=== PATIENT | female | born 1945 | race Caucasian/White ===

== ENCOUNTER 2020-07-19 07:37 | Outpatient (REF) | payer OTHER, MEDICAID, SELFPAY ==
[2020-07-19 08:36] LABS: MANUAL DIFF FLAG NO
[2020-07-19 08:44] LABS: Basophils Percent Auto 0.6 % (0-2); Eosinophils Absolute Auto 0.1 X10*3/uL (0.0-0.4); Eosinophils Percent Auto 2.1 % (0-4); Hematocrit 41.6 % (37-47); Hemoglobin 12.6 g/dl (12.0-16.0); Imm Gran Abs Auto 0.02 X10*3/uL (0.00-0.03); Imm Gran Pct Auto 0.3 % (0.0-0.4); Lymphocytes Absolute Auto 1.7 X10*3/uL (1.2-4.9); Mean Corpuscular HGB Conc 30.3 g/dl (31.0-35.0); Mean Corpuscular Hemoglobin 26.9 pg (27.0-33.0); Mean Corpuscular Volume 88.9 fL (80-98); Mean Platelet Volume 11.4 fL (9.4-12.3); Monocytes Absolute Auto 0.4 X10*3/uL (0.1-1.2); Monocytes Percent Auto 6.2 % (2-11); Neutrophils Absolute Auto 4.3 X10*3/uL (2.0-8.3); Neutrophils Percent Auto 65.8 % (45-73); Platelet Count 336 X10*3/uL (160-400); Red Blood Count 4.68 X10*6/uL (4.20-5.50); Red Cell Distribution Width 14.1 % (11.0-16.0); White Blood Count 6.6 X10*3/uL (4.8-10.8)
[2020-07-19 08:50] LABS: Glucose Urine UA NEG (NEG); Leukocyte Esterase Urine TRACE (NEG); Nitrite Urine NEG (NEG); PH 5.5 (5.0-8.0); Specific Gravity - Urine 1.025 (1.005-1.025); Urine Blood TRACE (NEG); Urine Ketones NEG (NEG); Urine Protein NEG (NEG-TRACE)
[2020-07-19 08:51] LABS: Appearance Urine CLEAR; Color Urine YELLOW
[2020-07-19 09:14] LABS: Alanine Aminotransferase 21 U/L (0-31); Albumin Level 4.2 g/dL (3.5-5.0); Alkaline Phosphatase 103 U/L (39-117); Anion Gap 12 (12-20); Aspartate Amino Transferase 20 U/L (5-31); Bilirubin Total 0.4 mg/dL (0.0-1.0); Blood Urea Nitrogen 18 mg/dL (9-16); Carbon Dioxide 31 mmol/L (22-29); Chloride 103 mmol/L (96-108); Estimated Glomerular Filt Rate > 60; Glucose Fasting 97 mg/dL (60-99); Potassium 4.7 mmol/l (3.3-5.1); Sodium 141 mmol/L (135-145); Total Protein 6.8 g/dL (6.5-8.0)
[2020-07-19 09:26] LABS: Cholesterol 198 mg/dL; HDL Cholesterol 45 mg/dL; LDL Cholesterol Calculated 124 mg/dl; Triglycerides 145 mg/dL
[2020-07-19 09:31] LABS: RBC Urine 0-2 /HPF (0); Squamous Epithelial Cell Urine TRACE /LPF
[2020-07-19 09:35] LABS: TSH reflex Free T4 2.58 mIU/mL (0.32-4.0)
== END 2020-07-19 07:38 | disposition home or self-care (01) ==
LOC: HO.LAB 07:37
PROVIDERS: PCP Internal Medicine; Visit Provider Internal Medicine
DX: I10 Essential (primary) hypertension (principal); E78.00 Pure hypercholesterolemia, unspecified; I48.0 Paroxysmal atrial fibrillation
CPT/HCPCS: 36415; 80053; 80061; 81001; 84443; 85025; 87086

== ENCOUNTER 2020-11-18 08:51 | Outpatient (REF) | payer OTHER, SELFPAY ==
--- NOTE | ~2020-11-18 | XR_ITS ---
EXAMINATION: XR ANKLE, LEFT CLINICAL INFORMATION: Hypertrophic osteoarthropathy. COMPARISON: None. TECHNIQUE: AP, lateral, and mortise views of the left ankle. FINDINGS: There is mild medial malleolar soft tissue swelling. The ankle mortise and subtalar joints are normal. There are moderate-sized calcaneal heel and retrocalcaneal enthesophytes. The soft tissues are normal. XR/XR ankle LT min 3V IMPRESSION: Mild medial malleolar soft tissue swelling without any visible acute fracture or dislocation. Moderate-sized calcaneal heel and retrocalcaneal enthesophytes.
== END 2020-11-18 08:52 | disposition home or self-care (01) ==
LOC: HO.XRAY 08:51
PROVIDERS: PCP Internal Medicine; Visit Provider Student in an Organized Health Care Education/Training Program
DX: M89.49 Other hypertrophic osteoarthropathy, multiple sites (principal)
CPT/HCPCS: 73610; 99212

== ENCOUNTER 2021-04-03 08:14 | Outpatient (REF) | payer OTHER, SELFPAY ==
[2021-04-03 09:02] LABS: MANUAL DIFF FLAG NO
[2021-04-03 09:13] LABS: Basophils Percent Auto 0.4 % (0-2); Eosinophils Absolute Auto 0.2 X10*3/uL (0.0-0.4); Eosinophils Percent Auto 2.4 % (0-4); Hematocrit 40.8 % (37-47); Hemoglobin 12.4 g/dl (12.0-16.0); Imm Gran Abs Auto 0.03 X10*3/uL (0.00-0.03); Imm Gran Pct Auto 0.4 % (0.0-0.4); Lymphocytes Absolute Auto 1.5 X10*3/uL (1.2-4.9); Lymphocytes Percent Auto 21.2 % (20-40); Mean Corpuscular HGB Conc 30.4 g/dl (31.0-35.0); Mean Corpuscular Hemoglobin 26.7 pg (27.0-33.0); Mean Corpuscular Volume 87.7 fL (80-98); Mean Platelet Volume 11.6 fL (9.4-12.3); Monocytes Absolute Auto 0.4 X10*3/uL (0.1-1.2); Monocytes Percent Auto 5.6 % (2-11); Platelet Count 298 X10*3/uL (160-400); Red Blood Count 4.65 X10*6/uL (4.20-5.50); Red Cell Distribution Width 14.3 % (11.0-16.0); White Blood Count 7.1 X10*3/uL (4.8-10.8)
[2021-04-03 09:41] LABS: Alanine Aminotransferase 14 U/L (0-31); Alkaline Phosphatase 95 U/L (39-117); Anion Gap 10 (12-20); Aspartate Amino Transferase 19 U/L (5-31); Bilirubin Total 0.3 mg/dL (0.0-1.0); Blood Urea Nitrogen 15 mg/dL (9-16); Carbon Dioxide 31 mmol/L (22-29); Chloride 106 mmol/L (96-108); Cholesterol 143 mg/dL; Estimated Glomerular Filt Rate > 60; Glucose Fasting 98 mg/dL (60-99); HDL Cholesterol 48 mg/dL; LDL Cholesterol Calculated 73 mg/dl; Potassium 4.5 mmol/L (3.3-5.1); Sodium 142 mmol/L (135-145); Total Protein 6.3 g/dL (6.5-8.0); Triglycerides 110 mg/dL
[2021-04-03 09:54] LABS: Erythrocyte Sedimentation Rate 19 MM/HR (0-20)
[2021-04-03 10:12] LABS: Appearance Urine CLEAR; Color Urine YELLOW; Glucose Urine UA NEG (NEG); Leukocyte Esterase Urine NEG (NEG); Nitrite Urine NEG (NEG); UACC Culture Trigger NO; Urine Blood TRACE (NEG); Urine Ketones NEG (NEG); Urine Protein NEG (NEG-TRACE)
[2021-04-03 10:34] LABS: TSH reflex Free T4 2.46 uIU/mL (0.32-4.0); Vitamin D 25-OH Total 27.1 ng/mL (>30)
[2021-04-03 11:28] LABS: RBC Urine 0-2 /HPF (0); Squamous Epithelial Cell Urine TRACE /LPF; WBC Urine 0 /HPF (0-4)
== END 2021-04-03 08:15 | disposition home or self-care (01) ==
LOC: HO.LAB 08:14
PROVIDERS: PCP Internal Medicine; Visit Provider Internal Medicine
DX: I10 Essential (primary) hypertension (principal); E55.9 Vitamin D deficiency, unspecified; M85.80 Other specified disorders of bone density and structure, unspecified site; E66.9 Obesity, unspecified; M19.90 Unspecified osteoarthritis, unspecified site; E78.00 Pure hypercholesterolemia, unspecified; I48.0 Paroxysmal atrial fibrillation; K21.9 Gastro-esophageal reflux disease without esophagitis
CPT/HCPCS: 36415; 80053; 80061; 81001; 81003; 82306; 84443; 85025; 85652

== ENCOUNTER 2021-07-06 08:48 | Outpatient (REF) | payer OTHER, SELFPAY ==
[2021-07-06 09:07] LABS: MANUAL DIFF FLAG NO
[2021-07-06 09:16] LABS: Basophils Percent Auto 0.4 % (0-2); Eosinophils Absolute Auto 0.1 X10*3/uL (0.0-0.4); Eosinophils Percent Auto 1.2 % (0-4); Hematocrit 42.8 % (37.0-47.0); Hemoglobin 13.1 g/dl (12.0-16.0); Imm Gran Abs Auto 0.05 X10*3/uL (0.00-0.03); Imm Gran Pct Auto 0.6 % (0.0-0.4); Lymphocytes Percent Auto 23.3 % (20-40); Mean Corpuscular HGB Conc 30.6 g/dl (31.0-35.0); Mean Corpuscular Hemoglobin 26.8 pg (27.0-33.0); Mean Corpuscular Volume 87.7 fL (80.0-98.0); Mean Platelet Volume 10.8 fL (9.4-12.3); Monocytes Absolute Auto 0.5 X10*3/uL (0.1-1.2); Monocytes Percent Auto 5.9 % (2-11); Neutrophils Absolute Auto 5.7 x10*3/uL (2.0-8.3); Neutrophils Percent Auto 68.6 % (45-73); Platelet Count 282 X10*3/uL (160-400); Red Blood Count 4.88 X10*6/uL (4.20-5.50); Red Cell Distribution Width 14.3 % (11.0-16.0); White Blood Count 8.4 X10*3/uL (4.8-10.8)
[2021-07-06 09:40] LABS: Alanine Aminotransferase 16 U/L (0-31); Albumin Level 4.3 g/dL (3.5-5.0); Alkaline Phosphatase 101 U/L (39-117); Anion Gap 12 (12-20); Aspartate Amino Transferase 16 U/L (5-31); Bilirubin Total 0.7 mg/dL (0.0-1.0); Blood Urea Nitrogen 18 mg/dL (9-16); Calcium 9.8 mg/dL (8.4-10.2); Carbon Dioxide 30 mmol/L (22-29); Chloride 104 mmol/L (96-108); Cholesterol 169 mg/dL; Estimated Glomerular Filt Rate > 60; Glucose Fasting 94 mg/dL (60-99); HDL Cholesterol 53 mg/dL; LDL Cholesterol Calculated 85 mg/dl; Potassium 4.4 mmol/L (3.3-5.1); Sodium 142 mmol/L (135-145); Total Protein 6.9 g/dL (6.5-8.0); Triglycerides 155 mg/dL
[2021-07-06 10:01] LABS: Appearance Urine CLEAR; Color Urine YELLOW; Glucose Urine UA NEG (NEG); Leukocyte Esterase Urine NEG (NEG); Nitrite Urine NEG (NEG); UACC Culture Trigger NO; Urine Blood 1+ (NEG); Urine Ketones NEG (NEG); Urine Protein NEG (NEG-TRACE)
[2021-07-06 10:02] LABS: TSH reflex Free T4 2.58 uIU/mL (0.32-4.0); Vitamin D 25-OH Total 21.4 ng/mL (>30)
[2021-07-06 10:31] LABS: Squamous Epithelial Cell Urine 1+ /LPF; WBC Urine 0 /HPF (0-4)
== END 2021-07-06 08:49 | disposition home or self-care (01) ==
LOC: HO.LAB 08:48
PROVIDERS: PCP Internal Medicine; Visit Provider Internal Medicine
DX: I10 Essential (primary) hypertension (principal); E55.9 Vitamin D deficiency, unspecified; E78.00 Pure hypercholesterolemia, unspecified
CPT/HCPCS: 36415; 80053; 80061; 81001; 81003; 82306; 84443; 85025

== ENCOUNTER 2021-08-18 08:39 | Outpatient (RCR) | payer OTHER, MEDICAID, SELFPAY | END 2021-10-30 10:51 | disposition home or self-care (01) | LOC: HO.WCC 08:39 | PROVIDERS: PCP Internal Medicine; Visit Provider Physician Assistant | DX: I87.311 Chronic venous hypertension (idiopathic) with ulcer of right lower extremity (principal); L97.312 Non-pressure chronic ulcer of right ankle with fat layer exposed; S90.861D Insect bite (nonvenomous), right foot, subsequent encounter; I73.9 Peripheral vascular disease, unspecified; I48.91 Unspecified atrial fibrillation; I10 Essential (primary) hypertension | CPT/HCPCS: 11042; 97597; 99212; 99214 ==

== ENCOUNTER 2021-08-28 10:23 | Outpatient (REF) | payer OTHER, MEDICAID, SELFPAY ==
--- NOTE | ~2021-08-28 | XR_ITS ---
EXAMINATION: XR ANKLE, RIGHT CLINICAL INFORMATION: Ulcer right ankle COMPARISON: None TECHNIQUE: AP, lateral, and mortise views of the right ankle. FINDINGS: Bone alignment is normal. No fracture or dislocation is seen. The ankle mortise is normal. There are calcaneal spurs. There is soft tissue arterial calcification. There is soft tissue swelling and there may be a defect in the soft tissues over the lateral lower ankle. There is no x-ray evidence of osteomyelitis. XR/XR ankle RT min 3V IMPRESSION: No x-ray evidence of osteomyelitis. Calcaneal spurs.
== END 2021-08-28 10:24 | disposition home or self-care (01) ==
LOC: HO.XRAY 10:23
PROVIDERS: PCP Internal Medicine; Visit Provider Internal Medicine
DX: L97.319 Non-pressure chronic ulcer of right ankle with unspecified severity (principal)
CPT/HCPCS: 73610

== ENCOUNTER 2021-09-14 13:10 | Outpatient (REF) | payer OTHER, MEDICAID, SELFPAY ==
--- NOTE | ~2021-09-14 | US_ITS ---
EXAMINATION: NONINVASIVE ASSESSMENT OF THE ARTERIES OF BOTH LOWER EXTREMITIES INCLUDING PVR EXAM AND RIGHT LOWER EXTREMITY DUPLEX. CLINICAL INFORMATION: Peripheral arterial disease COMPARISON: None TECHNIQUE: Ankle pulse volume recordings, ankle pressure measurements and ankle brachial indices were obtained of the lower extremity arterial system bilaterally in addition to duplex Doppler techniques with wave form analysis and measurement of velocities in the common femoral, profunda femoral, superficial femoral, popliteal, tibial and peroneal arteries. The study was performed only at rest. FINDINGS: RIGHT LEG 1. THE RIGHT ANKLE-BRACHIAL INDEX IS: 1.18 >0.97-1.25 = normal - no significant arterial disease 0.75-0.96 = mild peripheral arterial disease 0.5-0.74 = moderate peripheral arterial disease <0.50 = severe peripheral arterial disease <0.30 = critical arterial disease 2. SEGMENTAL PRESSURES (mmHg): Ankle: PT 160, DP 158 3. PVR WAVEFORMS: Ankle: Mild abnormality 4. DIRECT DUPLEX: Common femoral artery: 175 cm/s, Multiphasic Profunda femoris artery: 70 cm/s, Multiphasic Superficial femoral artery (proximal): 89 cm/s, Multiphasic Superficial femoral artery (mid): 92 cm/s, Multiphasic Superficial femoral artery (distal): 72 cm/s, Multiphasic Proximal Popliteal artery: 67 cm/s, Multiphasic Mid posterior tibial artery: 144 cm/s, Multiphasic LEFT LE. THE LEFT ANKLE-BRACHIAL INDEX IS: 1.17 (higher of the DP/PT) >0.97-1.25 = normal - no significant arterial disease 0.75-0.96 = mild peripheral arterial disease 0.5-0.74 = moderate peripheral arterial disease <0.50 = severe peripheral arterial disease <0.30 = critical arterial disease 2. SEGMENTAL PRESSURES: Ankle: PT 159, DP 147 3. PVR WAVEFORMS: Ankle: Mild abnormality US/US arterial duplex LE RT IMPRESSION: 1. Elevated velocities in the right common femoral artery and posterior tibial artery suggesting mild stenoses. 2. Loss of dicrotic notch in the bilateral ankle PVR suggests mild stenoses.
--- NOTE | ~2021-09-14 | US_ITS ---
EXAMINATION: NONINVASIVE ASSESSMENT OF THE ARTERIES OF BOTH LOWER EXTREMITIES INCLUDING PVR EXAM AND RIGHT LOWER EXTREMITY DUPLEX. CLINICAL INFORMATION: Peripheral arterial disease COMPARISON: None TECHNIQUE: Ankle pulse volume recordings, ankle pressure measurements and ankle brachial indices were obtained of the lower extremity arterial system bilaterally in addition to duplex Doppler techniques with wave form analysis and measurement of velocities in the common femoral, profunda femoral, superficial femoral, popliteal, tibial and peroneal arteries. The study was performed only at rest. FINDINGS: RIGHT LEG 1. THE RIGHT ANKLE-BRACHIAL INDEX IS: 1.18 >0.97-1.25 = normal - no significant arterial disease 0.75-0.96 = mild peripheral arterial disease 0.5-0.74 = moderate peripheral arterial disease <0.50 = severe peripheral arterial disease <0.30 = critical arterial disease 2. SEGMENTAL PRESSURES (mmHg): Ankle: PT 160, DP 158 3. PVR WAVEFORMS: Ankle: Mild abnormality 4. DIRECT DUPLEX: Common femoral artery: 175 cm/s, Multiphasic Profunda femoris artery: 70 cm/s, Multiphasic Superficial femoral artery (proximal): 89 cm/s, Multiphasic Superficial femoral artery (mid): 92 cm/s, Multiphasic Superficial femoral artery (distal): 72 cm/s, Multiphasic Proximal Popliteal artery: 67 cm/s, Multiphasic Mid posterior tibial artery: 144 cm/s, Multiphasic LEFT LE. THE LEFT ANKLE-BRACHIAL INDEX IS: 1.17 (higher of the DP/PT) >0.97-1.25 = normal - no significant arterial disease 0.75-0.96 = mild peripheral arterial disease 0.5-0.74 = moderate peripheral arterial disease <0.50 = severe peripheral arterial disease <0.30 = critical arterial disease 2. SEGMENTAL PRESSURES: Ankle: PT 159, DP 147 3. PVR WAVEFORMS: Ankle: Mild abnormality US/US SUHAS complete IMPRESSION: 1. Elevated velocities in the right common femoral artery and posterior tibial artery suggesting mild stenoses. 2. Loss of dicrotic notch in the bilateral ankle PVR suggests mild stenoses.
== END 2021-09-14 13:11 | disposition home or self-care (01) ==
LOC: HO.US 13:10
PROVIDERS: PCP Internal Medicine; Visit Provider Physician Assistant
DX: I73.9 Peripheral vascular disease, unspecified (principal)
CPT/HCPCS: 93923; 93926

== ENCOUNTER 2021-10-04 10:57 | Outpatient (REF) | payer OTHER, MEDICAID, SELFPAY ==
[2021-10-04 12:50] LABS: Blood Urea Nitrogen 16 mg/dL (9-16); Estimated Glomerular Filt Rate > 60
== END 2021-10-04 10:58 | disposition home or self-care (01) ==
LOC: HO.LAB 10:57
PROVIDERS: PCP Internal Medicine; Visit Provider Radiology Vascular & Interventional Radiology
DX: R79.89 Other specified abnormal findings of blood chemistry (principal); R94.4 Abnormal results of kidney function studies
CPT/HCPCS: 36415; 82565; 84520

== ENCOUNTER 2021-11-02 11:43 | Outpatient (REF) | payer OTHER, MEDICAID, SELFPAY ==
--- NOTE | ~2021-11-02 | MM_ITS ---
EXAMINATION: MM SCREENING DIGITAL BREAST TOMOSYNTHESIS, BILATERAL CLINICAL INFORMATION: Screening. Asymptomatic. The lifetime risk of breast cancer based on the Tyrer-Cuzick Model is 2.1%. COMPARISON: Mammography: November 22, 2016 and studies dating back to August 02, 2011 TECHNIQUE: Digital breast tomosynthesis is performed in both the craniocaudal and mediolateral oblique views along with computer-aided detection (CAD). Synthesized 2D images are generated from the tomosynthesis. FINDINGS: There are scattered areas of fibroglandular density (ACR BI-RADS breast composition Category b). There are no significant masses, abnormal calcifications, or other abnormalities. MM/MM tomosynthesis screening BI IMPRESSION: There are no significant changes from prior study. ASSESSMENT: BI-RADS 1: Negative RECOMMENDATION: Routine annual mammography screening. This patient's information was entered into a reminder system with a target due date for their next mammogram.
== END 2021-11-02 11:44 | disposition home or self-care (01) ==
LOC: HO.MAMMO 11:43
PROVIDERS: PCP Internal Medicine; Visit Provider Internal Medicine
DX: Z12.31 Encounter for screening mammogram for malignant neoplasm of breast (principal)
CPT/HCPCS: 77063; 77067

== ENCOUNTER 2021-11-19 14:20 | Emergency (ER) | payer OTHER, MEDICAID, SELFPAY ==
[2021-11-19 14:22] VITALS: BP 141/63; PULSE 86; RESP 18; TEMP 36.8; O2SAT 96; BMI 34.4
[2021-11-19] MEDS: predniSONE 20 MG TABLET 60 MG PO (14:41)
[2021-11-19] MEDS: Albuterol/Iprat 2.5/0.5MG 3 ML AMPUL.NEB INHALE (14:42)
[2021-11-19 14:45] VITALS: PULSE 86; RESP 20; O2SAT 96
--- NOTE | 2021-11-19 14:48 | ED.SOB ---
HPI - SOB/Dyspnea General Chief Complaint: Dyspnea Stated Complaint: Asthma Time Seen by Provider: 11/19/21 14:37 Source: patient Mode of arrival: ambulatory Limitations: no limitations History of Present Illness HPI Narrative: This is 76 years old female with a history of asthma presented to the emergency room complaining of shortness of breath. Denies any chest pain fever chills. She states she has been using the nebulizer at home as well without improvement. MD elicited complaint: shortness of breath and asthma attack Pertinent past history: asthma Onset (ago): day(s) (2) Timing: constant Severity: moderate Exacerbating factors: nothing Relieving factors: nothing Known history of: asthma Associated symptoms: denies other symptoms Related Data Home oxygen amount: none Previous Rx's Medication Instructions Recorded benzonatate 100 mg capsule 100 mg PO TID PRN 10 Days #30 cap 05/06/20 (Tessalon Perles) tizanidine 4 mg tablet 4 mg PO TID #270 tab 07/24/20 albuterol sulfate See Rx Instructions INHALATION QID 04/07/21 PRN #1050 ml calcium carb-vit D3-minerals 600 1 tab PO .QD 90 Days #90 tab 04/07/21 mg calcium-200 unit tablet fluticasone propionate 110 1 puff INHALATION BID 30 Days #12 g 04/07/21 mcg/actuation HFA aerosol inhaler (Flovent HFA) inhalational spacing device #1 ea 04/07/21 (Aerochamber MV) lubiprostone 24 mcg capsule 24 mcg PO BID #60 cap 07/10/21 (Amitiza) acetaminophen 650 mg 650 mg PO Q8H PRN 30 Days #90 tab 07/17/21 tablet,extended release sennosides 8.6 mg capsule (senna) 8.6 mg PO BEDTIME PRN 90 Days #90 07/17/21 cap triamcinolone acetonide 0.1 % 1 appl TOPICAL BID 10 Days #30 g 08/10/21 topical cream miscellaneous medical supply #1 ea 08/15/21 candesartan 32 mg tablet 32 mg PO DAILY #90 tab 08/22/21 cholecalciferol (vitamin D3) 25 25 mcg PO DAILY 90 Days #90 cap 09/06/21 mcg (1,000 unit) capsule alendronate 70 mg tablet 70 mg PO QWEEK #12 tab 09/19/21 lidocaine 5 % topical patch 1 patch TOPICAL DAILY PRN 30 Days 09/29/21 #30 ea albuterol sulfate 90 mcg/actuation 1 puff INHALATION Q6H #8.5 ea 10/12/21 aerosol inhaler gabapentin 100 mg capsule 100 mg PO BID 30 Days #60 cap 10/17/21 zolpidem 10 mg tablet 10 mg PO BEDTIME PRN #30 tab 10/19/21 doxycycline monohydrate 100 mg 100 mg PO BID 10 Days #20 cap 11/02/21 capsule atorvastatin 80 mg tablet 80 mg PO BEDTIME #90 tab 11/17/21 tramadol 50 mg tablet 50 mg PO BID PRN 30 Days #60 tab 11/17/21 prednisone 20 mg tablet 60 mg PO DAILY #12 tab 11/19/21 Allergies Allergy/AdvReac Type Severity Reaction Status Date / Time acetaminophen [From PERCOCET] Allergy Intermediate HIVES Verified 11/19/21 14:22 morphine [MORPHINE] Allergy Intermediate VOMITING Verified 11/19/21 14:22 Penicillins [PENICILLINS] Allergy Mild RASH Verified 11/19/21 14:22 oxaprozin [From Daypro] Allergy Unknown RASH Verified 11/19/21 14:22 oxycodone [From PERCOCET] AdvReac Intermediate VOMITING Verified 11/19/21 14:22 AND DIZZINESS budesonide [Symbicort] AdvReac Unknown nausea and Verified 11/19/21 14:22 vomiting Review of Systems Review of Systems: Yes all other systems are reviewed and are negative Constitutional: Constitutional: Reports no additional constitutional complaints Eyes: Eyes: Reports no additional eye complaints Cardiovascular: Cardiovascular: Reports dyspnea Respiratory: Respiratory: Reports dyspnea and Reports wheezing Gastrointestinal: Gastrointestinal: Reports no additional gastrointestinal complaints Musculoskeletal: Musculoskeletal: Reports no additional musculoskeletal complaints Neurologic: Reports system reviewed and no additional complaints, except as documented Psychiatric: Psychiatric: Reports no additional psychiatric complaints Endocrine: Endocrine: Reports no additional endocrine complaints Allergic/Immunologic: Allergic/Immunologic: Reports wheezing PMFSH Past Medical History Medical History Anxiety Asthma Benign essential hypertension Depression GERD without esophagitis Insomnia Obesity (BMI 30-39.9) Osteoarthritis Osteopenia PAF (paroxysmal atrial fibrillation) Paroxysmal atrial fibrillation Pure hypercholesterolemia Vitamin D deficiency Surgical History History of colonoscopy Family History Family History Father CVD (cardiovascular disease) Stroke Mother Medical history unknown Social History Social History Housing: Apartment Alcohol intake: never Patient Tobacco Use Status: Never used Tobacco e-Cigarette/Vaping Use: Never Used Second Hand Smoke Exposure: Yes Use of substances other than those prescribed or required for medical reasons: No Advance Directives: No Advance Directives Information Provided: No service: No Current occupational status: disabled Cognitive needs: No Hearing needs: No Vision needs: Yes (glasses) Physical Exam Vital Signs: Vital Signs: Last Vital Signs Temp 98.3 F 11/19/21 14:22 Pulse 88 11/19/21 15:12 Resp 18 11/19/21 15:12 BP 147/92 H 11/19/21 15:12 Pulse Ox 97 11/19/21 15:12 BMI result Body Mass Index 34.4 Const: General: cooperative Nutritional Appearance: average body habitus and well nourished Orientation/consciousness: patient oriented x3 Limitations: no limitations HEENT: Head: Yes normal to inspection Ears: hearing grossly normal bilaterally General nose exam: Normal external nose present Face and sinus: Yes normal facial exam Mouth: Normal oral and palatal mucosa present Throat: Yes posterior oropharynx normal Neck: Neck: Yes normal visual inspection Chest: Chest palpation & inspection: normal inspection of the chest Resp: Effort & Inspection: normal respiratory effort Auscultation: wheezes (minimal) Cardio: Jugular venous distension: no JVD Rhythm: regular rhythm and abnormal rhythm GI: Inspection: Yes normal to inspection Palpation (GI): Soft to palpation, not firm and nontender Skin: General skin exam: no rashes or lesions noted and elasticity normal Lesions: no lesions Rashes: no rashes Neuro: General: patient oriented x3 Cranial nerves: Yes CN's II-XII intact bilaterally Course Reevaluation(s) Reevaluation #1: She feels much better lungs are clear, O2 sat is 97% will discharge patient home on prednisone Time: 15:17 MDM - SOB/Dyspnea MDM Narrative Medical decision making narrative: Patient looks well she oxygenating 96% on room air, respiration rate is 18 she is not tachycardic a think she will benefit from p.o. steroid we will gave also a nebulizer I do not believe patient needs IV mes/labs/cxr Lab Data Labs: Lab Results 11/19/21 11/19/21 Range/Units 14:35 14:35 COVID-19 (DAVID) Negative (Negative) COVID-19 Clin Com See Note Influenza Type A (VJ) Negative (Negative) Influenza Type B (VJ) Negative (Negative) Influenza A & B Note See Note Discharge Plan Discharge Clinical Impression: Asthma attack Patient Disposition: Home, Self-Care Instructions: Asthma (DC) Additional Instructions: Follow-up with your primary care physician take the prednisone as directed return if you worse Prescriptions: New prednisone 20 mg tablet 60 mg PO DAILY Qty: 12 0RF No Action benzonatate [Tessalon Perles] 100 mg capsule 100 mg PO TID PRN (Reason: cough) 10 Days Qty: 30 1RF tizanidine 4 mg tablet 4 mg PO TID Qty: 270 1RF lubiprostone [Amitiza] 24 mcg capsule 24 mcg PO BID Qty: 60 1RF senna 8.6 mg capsule 8.6 mg PO BEDTIME PRN (Reason: constipation) 90 Days Qty: 90 12RF acetaminophen 650 mg tablet extended release 650 mg PO Q8H PRN (Reason: pain) 30 Days Qty: 90 3RF (DME) miscellaneous medical supply Misc 0 .Route Qty: 1 0RF Rx Instructions: Power Lift Chair - As directed - to use indefinatly candesartan 32 mg tablet 32 mg PO DAILY Qty: 90 1RF cholecalciferol (vitamin D3) 25 mcg (1,000 unit) capsule 25 mcg PO DAILY 90 Days Qty: 90 3RF alendronate 70 mg tablet 70 mg PO QWEEK Qty: 12 1RF albuterol sulfate 90 mcg/actuation HFA aerosol inhaler 1 puff inhalation Q6H Qty: 8.5 3RF gabapentin 100 mg capsule 100 mg PO BID 30 Days Qty: 60 1RF zolpidem 10 mg tablet 10 mg PO BEDTIME PRN (Reason: sleep) Qty: 30 0RF doxycycline monohydrate 100 mg capsule 100 mg PO BID 10 Days Qty: 20 0RF atorvastatin 80 mg tablet 80 mg PO BEDTIME Qty: 90 1RF tramadol 50 mg tablet 50 mg PO BID PRN (Reason: pain) 30 Days Qty: 60 0RF calcium carbonate-vit D3-min 600 mg calcium- 200 unit tablet 1 tab PO .QD 90 Days Qty: 90 12RF albuterol sulfate 2.5 mg /3 mL (0.083 %) solution for nebulization See Rx Instructions inhalation QID PRN (Reason: shortness of breath or wheezing) Qty: 1050 3RF Rx Instructions: 1 vile inhalation 4 times a day PRN; (DME) Aerochamber MV Spacer See Rx Instructions .Route Qty: 1 0RF Rx Instructions: As directed Flovent HFA 110 mcg/actuation HFA aerosol inhaler 1 puff inhalation BID 30 Days Qty: 12 5RF triamcinolone acetonide 0.1 % cream 1 appl topical BID 10 Days Qty: 30 1RF lidocaine 5 % adhesive patch,medicated 1 patch topical DAILY PRN (Reason: pain) 30 Days Qty: 30 2RF Rx Instructions: leave on most painful area for up to 12 hrs Referrals: Milton Ackerman MD [Primary Care Provider] - 2 days Interventions: ED Discharge Assessment Last Done: 11/19/21 15:35 Discharge Date/Time: 11/19/21 15:35
[2021-11-19 14:59] LABS: COVID-19 Test Negative (Negative); IDNOW Serial# 16C4AD1C; IDNOW Serial# 9DB6401D; Influenza A Negative (Negative); Influenza B2 Negative (Negative)
--- NOTE | 2021-11-19 15:11 | PC.NURSE ---
pt a&ox3, vss, pt reports breathing has improved, still has a cough. no new orders at this time.
[2021-11-19 15:12] VITALS: BP 147/92; PULSE 88; RESP 18; O2SAT 97
== END 2021-11-19 15:35 | disposition home or self-care (01) ==
PROVIDERS: Emergency Provider Emergency Medicine; PCP Internal Medicine
DX: J45.901 Unspecified asthma with (acute) exacerbation (principal); R06.02 Shortness of breath; Z20.822 Contact with and (suspected) exposure to COVID-19; Z79.899 Other long term (current) drug therapy
CPT/HCPCS: 87502; 87635; 94640; 99284

== ENCOUNTER 2021-12-14 08:07 | Outpatient (REF) | payer OTHER, MEDICAID, SELFPAY ==
[2021-12-14 08:33] LABS: MANUAL DIFF FLAG NO
[2021-12-14 09:42] LABS: Basophils Percent Auto 0.4 % (0-2); Eosinophils Absolute Auto 0.1 X10*3/uL (0.0-0.4); Eosinophils Percent Auto 1.8 % (0-4); Hematocrit 42.2 % (37.0-47.0); Imm Gran Abs Auto 0.04 X10*3/uL (0.00-0.03); Imm Gran Pct Auto 0.5 % (0.0-0.4); Lymphocytes Absolute Auto 1.5 X10*3/uL (1.2-4.9); Lymphocytes Percent Auto 19.8 % (20-40); Mean Corpuscular HGB Conc 30.8 g/dl (31.0-35.0); Mean Corpuscular Hemoglobin 27.5 pg (27.0-33.0); Mean Corpuscular Volume 89.2 fL (80.0-98.0); Mean Platelet Volume 11.3 fL (9.4-12.3); Monocytes Absolute Auto 0.5 X10*3/uL (0.1-1.2); Monocytes Percent Auto 6.7 % (2-11); Neutrophils Absolute Auto 5.5 x10*3/uL (2.0-8.3); Neutrophils Percent Auto 70.8 % (45-73); Platelet Count 340 X10*3/uL (160-400); Red Blood Count 4.73 X10*6/uL (4.20-5.50); White Blood Count 7.8 X10*3/uL (4.8-10.8)
[2021-12-14 10:17] LABS: Appearance Urine CLEAR; Color Urine YELLOW; Glucose Urine UA NEG (NEG); Leukocyte Esterase Urine NEG (NEG); Nitrite Urine NEG (NEG); UACC Culture Trigger NO; Urine Blood TRACE (NEG); Urine Ketones NEG (NEG); Urine Protein NEG (NEG-TRACE)
[2021-12-14 10:33] LABS: Alanine Aminotransferase 20 U/L (0-31); Albumin Level 4.1 g/dL (3.5-5.0); Alkaline Phosphatase 123 U/L (39-117); Anion Gap 15 (12-20); Aspartate Amino Transferase 19 U/L (5-31); Bilirubin Total 0.5 mg/dL (0.0-1.0); Blood Urea Nitrogen 18 mg/dL (9-16); Calcium 9.3 mg/dL (8.4-10.2); Carbon Dioxide 28 mmol/L (22-29); Chloride 102 mmol/L (96-108); Cholesterol 169 mg/dL; Estimated Glomerular Filt Rate > 60; Glucose Fasting 88 mg/dL (60-99); HDL Cholesterol 50 mg/dL; LDL Cholesterol Calculated 83 mg/dl; Potassium 4.9 mmol/L (3.3-5.1); Sodium 140 mmol/L (135-145); Total Protein 6.7 g/dL (6.5-8.0); Triglycerides 181 mg/dL
[2021-12-14 10:53] LABS: RBC Urine 0-2 /HPF (0); Squamous Epithelial Cell Urine 1+ /LPF; WBC Urine 0-2 /HPF (0-4)
[2021-12-14 10:54] LABS: TSH reflex Free T4 2.77 uIU/mL (0.32-4.0); Vitamin D 25-OH Total 32.2 ng/mL (>30)
== END 2021-12-14 08:08 | disposition home or self-care (01) ==
LOC: HO.LAB 08:07
PROVIDERS: PCP Internal Medicine; Visit Provider Internal Medicine
DX: I10 Essential (primary) hypertension (principal); E78.00 Pure hypercholesterolemia, unspecified; E55.9 Vitamin D deficiency, unspecified
CPT/HCPCS: 36415; 80053; 80061; 81001; 81003; 82306; 84443; 85025

== ENCOUNTER → 2022-01-12 12:57 | Outpatient (BNVA) | payer OTHER, MEDICAID, SELFPAY | PROVIDERS: PCP Internal Medicine; Visit Provider Nurse Practitioner Family | DX: M54.50 Low back pain, unspecified (principal); M79.671 Pain in right foot; M79.672 Pain in left foot; M77.32 Calcaneal spur, left foot; M77.31 Calcaneal spur, right foot; Z79.891 Long term (current) use of opiate analgesic; Z79.899 Other long term (current) drug therapy | CPT/HCPCS: 99212 ==

== ENCOUNTER 2022-04-17 09:52 | Outpatient (REF) | payer OTHER, MEDICAID, SELFPAY ==
[2022-04-17 10:03] LABS: MANUAL DIFF FLAG NO
[2022-04-17 11:14] LABS: Appearance Urine Clear; Color Urine Yellow; Glucose Urine UA Negative (Negative); Leukocyte Esterase Urine Moderate (2+) (Negative); Nitrite Urine Negative (Negative); PH 5.5 (5.0-9.0); Specific Gravity - Urine 1.015 (1.005-1.025); UMIC TRIGGER UACC YES; Urine Blood Negative (Negative); Urine Ketones Negative (Negative); Urine Protein Negative (Neg-Trace)
[2022-04-17 11:30] LABS: Bacteria Urine None Seen (None Seen); Hyaline Casts Urine 0-2 /LPF (0-2); RBC Urine 0-2 /HPF (0-2); Squamous Epithelial Cell Urine 0-2 /HPF (0-2); WBC Urine 0-5 /HPF (0-5)
[2022-04-17 11:42] LABS: Basophils Percent Auto 0.3 % (0-2); Eosinophils Absolute Auto 0.1 X10*3/uL (0.0-0.4); Eosinophils Percent Auto 1.5 % (0-4); Hematocrit 40.4 % (37.0-47.0); Hemoglobin 12.4 g/dl (12.0-16.0); Imm Gran Abs Auto 0.03 X10*3/uL (0.00-0.03); Imm Gran Pct Auto 0.3 % (0.0-0.4); Lymphocytes Absolute Auto 2.1 X10*3/uL (1.2-4.9); Lymphocytes Percent Auto 24.2 % (20-40); Mean Corpuscular HGB Conc 30.7 g/dl (31.0-35.0); Mean Corpuscular Hemoglobin 26.7 pg (27.0-33.0); Mean Corpuscular Volume 87.1 fL (80.0-98.0); Mean Platelet Volume 11.8 fL (9.4-12.3); Monocytes Absolute Auto 0.5 X10*3/uL (0.1-1.2); Monocytes Percent Auto 5.9 % (2-11); Neutrophils Absolute Auto 5.8 x10*3/uL (2.0-8.3); Neutrophils Percent Auto 67.8 % (45-73); Platelet Count 313 X10*3/uL (160-400); Red Blood Count 4.64 X10*6/uL (4.20-5.50); Red Cell Distribution Width 14.3 % (11.0-16.0); White Blood Count 8.6 X10*3/uL (4.8-10.8)
[2022-04-17 11:58] LABS: Alanine Aminotransferase 18 U/L (0-31); Albumin Level 4.3 g/dL (3.5-5.0); Alkaline Phosphatase 105 U/L (39-117); Anion Gap 17 (12-20); Aspartate Amino Transferase 25 U/L (5-31); Bilirubin Total 0.4 mg/dL (0.0-1.0); Blood Urea Nitrogen 15 mg/dL (9-16); Calcium 9.3 mg/dL (8.4-10.2); Carbon Dioxide 25 mmol/L (22-29); Chloride 105 mmol/L (96-108); Cholesterol 152 mg/dL; Estimated Glomerular Filt Rate > 60; Glucose Fasting 76 mg/dL (60-99); HDL Cholesterol 53 mg/dL; LDL Cholesterol Calculated 74 mg/dl; Potassium 4.7 mmol/L (3.3-5.1); Sodium 142 mmol/L (135-145); Total Protein 6.8 g/dL (6.5-8.0); Triglycerides 129 mg/dL
[2022-04-17 12:09] LABS: TSH reflex Free T4 3.25 uIU/mL (0.32-4.0); Vitamin D 25-OH Total 33.1 ng/mL (>30)
== END 2022-04-17 09:53 | disposition home or self-care (01) ==
LOC: HO.LAB 09:52
PROVIDERS: PCP Internal Medicine; Visit Provider Internal Medicine
DX: E78.00 Pure hypercholesterolemia, unspecified (principal); E55.9 Vitamin D deficiency, unspecified; I10 Essential (primary) hypertension
CPT/HCPCS: 36415; 80053; 80061; 81001; 82306; 84443; 85025

== ENCOUNTER 2022-04-19 11:38 | Outpatient (REF) | payer OTHER, MEDICAID, SELFPAY ==
--- NOTE | ~2022-04-19 | XR_ITS ---
EXAMINATION: XR CHEST CLINICAL INFORMATION: Dyspnea. COMPARISON: None. TECHNIQUE: 2 views of the chest were obtained. FINDINGS: The lungs are well expanded with plate-like atelectasis in the lingula. The rest of the lungs are clear. The heart size and pulmonary vascularity is normal. No gross bony abnormality seen. XR/XR chest 2V IMPRESSION: Plate-like atelectasis in the lingula. The rest of the lungs are clear.
[2022-04-19 13:28] LABS: Appearance Urine Clear; Color Urine Yellow; Glucose Urine UA Negative (Negative); Leukocyte Esterase Urine Negative (Negative); Nitrite Urine Negative (Negative); Specific Gravity - Urine 1.015 (1.005-1.025); UMIC TRIGGER UACC YES; Urine Blood Trace (Negative); Urine Ketones Negative (Negative); Urine Protein Negative (Neg-Trace)
[2022-04-19 13:33] LABS: Bacteria Urine None Seen (None Seen); Hyaline Casts Urine 0-2 /LPF (0-2); RBC Urine 0-2 /HPF (0-2); Squamous Epithelial Cell Urine 0-2 /HPF (0-2); WBC Urine 0-5 /HPF (0-5)
== END 2022-04-19 11:39 | disposition home or self-care (01) ==
LOC: HO.LAB 11:38
PROVIDERS: PCP Internal Medicine; Visit Provider Internal Medicine
DX: R06.00 Dyspnea, unspecified (principal)
CPT/HCPCS: 71046; 81001

== ENCOUNTER 2022-07-23 09:15 | Outpatient (REF) | payer OTHER, MEDICAID, SELFPAY ==
[2022-07-23 09:43] LABS: MANUAL DIFF FLAG NO
[2022-07-23 10:09] LABS: Basophils Percent Auto 0.6 % (0-2); Eosinophils Absolute Auto 0.1 X10*3/uL (0.0-0.4); Eosinophils Percent Auto 1.8 % (0-4); Hematocrit 42.4 % (37.0-47.0); Hemoglobin 13.1 g/dl (12.0-16.0); Imm Gran Abs Auto 0.03 X10*3/uL (0.00-0.03); Imm Gran Pct Auto 0.4 % (0.0-0.4); Lymphocytes Absolute Auto 1.8 X10*3/uL (1.2-4.9); Lymphocytes Percent Auto 24.2 % (20-40); Mean Corpuscular HGB Conc 30.9 g/dl (31.0-35.0); Mean Corpuscular Hemoglobin 27.4 pg (27.0-33.0); Mean Corpuscular Volume 88.7 fL (80.0-98.0); Mean Platelet Volume 11.3 fL (9.4-12.3); Monocytes Absolute Auto 0.5 X10*3/uL (0.1-1.2); Monocytes Percent Auto 7.2 % (2-11); Neutrophils Absolute Auto 4.8 x10*3/uL (2.0-8.3); Neutrophils Percent Auto 65.8 % (45-73); Platelet Count 299 X10*3/uL (160-400); Red Blood Count 4.78 X10*6/uL (4.20-5.50); Red Cell Distribution Width 14.1 % (11.0-16.0); White Blood Count 7.2 X10*3/uL (4.8-10.8)
[2022-07-23 10:25] LABS: Appearance Urine Clear; Color Urine Yellow; Glucose Urine UA Negative (Negative); Leukocyte Esterase Urine Negative (Negative); Nitrite Urine Negative (Negative); PH 5.5 (5.0-9.0); UMIC TRIGGER UACC YES; Urine Blood Trace (Negative); Urine Ketones Negative (Negative); Urine Protein Negative (Neg-Trace)
[2022-07-23 10:28] LABS: Bacteria Urine None Seen (None Seen); Hyaline Casts Urine 0-2 /LPF (0-2); RBC Urine 0-2 /HPF (0-2); Squamous Epithelial Cell Urine 0-2 /HPF (0-2); WBC Urine 0-5 /HPF (0-5)
[2022-07-23 11:27] LABS: Alanine Aminotransferase 30 U/L (0-31); Albumin Level 4.2 g/dL (3.5-5.0); Alkaline Phosphatase 134 U/L (39-117); Anion Gap 14 (12-20); Aspartate Amino Transferase 25 U/L (5-31); Bilirubin Total 0.6 mg/dL (0.0-1.0); Blood Urea Nitrogen 16 mg/dL (9-16); Calcium 9.4 mg/dL (8.4-10.2); Carbon Dioxide 28 mmol/L (22-29); Chloride 105 mmol/L (96-108); Cholesterol 170 mg/dL; Estimated Glomerular Filt Rate > 60; Glucose Fasting 92 mg/dL (60-99); HDL Cholesterol 48 mg/dL; LDL Cholesterol Calculated 93 mg/dl; Potassium 4.8 mmol/L (3.3-5.1); Sodium 142 mmol/L (135-145); Total Protein 6.7 g/dL (6.5-8.0); Triglycerides 146 mg/dL
[2022-07-23 11:33] LABS: TSH reflex Free T4 2.93 uIU/mL (0.32-4.0); Vitamin D 25-OH Total 26.8 ng/mL (>30)
== END 2022-07-23 09:16 | disposition home or self-care (01) ==
LOC: HO.LAB 09:15
PROVIDERS: PCP Internal Medicine; Visit Provider Internal Medicine
DX: I10 Essential (primary) hypertension (principal); E78.00 Pure hypercholesterolemia, unspecified; E55.9 Vitamin D deficiency, unspecified
CPT/HCPCS: 36415; 80053; 80061; 81001; 82306; 84443; 85025

== ENCOUNTER 2022-08-09 10:43 | Outpatient (REF) | payer OTHER, MEDICAID, SELFPAY ==
--- NOTE | ~2022-08-09 | MM_ITS ---
EXAMINATION: BONE DENSITOMETRY CLINICAL INDICATION: Osteopenia. COMPARISON: Previous BD dated 10/18/2017 and baseline BD dated 08/09/2009. TECHNIQUE: Using a [employer] DXA System (software version: 13.1) manufactured by [employer], dual-energy x-ray absorptiometry was performed of the lumbar spine and left hip. The images are of good technical quality. Summary results are attached. FINDINGS: AP SPINE L1-L4: Current: BMD 1.007 g/cm2, Z-score -0.2, T-score -1.4, osteopenia, 2.1% increase from previous, 8.3% increase from baseline (<5% change is not significant). Prior: BMD 0.986 g/cm2. Baseline: BMD 0.930 g/cm2. LEFT FEMUR, NECK: Current: BMD 0.595 g/cm2, Z-score -1.6, T-score -3.2, osteoporosis. Prior: BMD 0.783 g/cm2. Baseline: BMD 0.815 g/cm2. LEFT FEMUR, TOTAL: Current: BMD 0.621 g/cm2, Z-score -1.6, T-score -3.1, osteoporosis, 23.2% decrease from previous, 24.4% decrease from baseline (<5% change is not significant). Prior: BMD 0.809 g/cm2. Baseline: BMD 0.821 g/cm2. IDENTIFIED RISK FACTORS: Menopause, osteoporosis, rheumatoid arthritis. HISTORY OF FRACTURE: None listed. MEDICATIONS: Vitamin D. MM/XR DEXA axial skeleton IMPRESSION: 1. DIAGNOSIS: Osteoporosis based on the lowest T-score value of -3.2 in the femoral neck applying World Health Organization criteria. 2. 10-YEAR FRACTURE RISK PREDICTION, FRAX: According to the guidelines, FRAX calculation should only be performed on patients in the osteopenia bone density category. Therefore, FRAX was not performed on this patient. 3. Treatment Recommendations: NOF guidelines recommend consideration for treatment in postmenopausal women and men age 50 and older presenting with the following: -A hip or vertebral (clinical or morphometric) fracture. -T-score less than or equal to -2.5 at the femoral neck or spine after appropriate evaluation to exclude secondary causes. -Low bone mass at the hip or spine and a 10-year fracture probability by FRAX of greater than or equal to 3% for hip fracture or greater than or equal to 20% for major osteoporotic fracture based on the [place] adapted WHO algorithm. 4. Other Recommendations: All treatment decisions require clinical judgment and consideration of individual patient factors, including patient preferences, comorbidities, previous drug use, risk factors not captured in the FRAX model (e.g. frailty, falls, vitamin D deficiency, increased bone turnover, interval significant decline in bone density) and possible under or overestimation of fracture risk by FRAX. Additional medical evaluation for secondary cause of low bone mineral density may be appropriate. FUTURE SCAN RECOMMENDATION: People with diagnosed cases of osteoporosis or at high risk for fracture should have regular bone mineral density tests. For patients eligible for Medicare, routine testing is allowed once every 2 years. The testing frequency can be increased to one year for patients who have rapidly progressing disease, those who are receiving or discontinuing medical therapy to restore bone mass, or have additional risk factors.
== END 2022-08-09 10:44 | disposition home or self-care (01) ==
LOC: HO.MAMMO 10:43
PROVIDERS: PCP Internal Medicine; Visit Provider Nurse Practitioner Family
DX: Z13.820 Encounter for screening for osteoporosis (principal); M85.80 Other specified disorders of bone density and structure, unspecified site; Z78.0 Asymptomatic menopausal state
CPT/HCPCS: 77080

== ENCOUNTER 2022-08-22 07:59 | Outpatient (RCR) | payer OTHER, MEDICAID, SELFPAY | END 2022-10-01 16:00 | disposition home or self-care (01) | LOC: HO.WCC 07:59 | PROVIDERS: PCP Internal Medicine; Visit Provider Surgery | DX: I70.238 Atherosclerosis of native arteries of right leg with ulceration of other part of lower leg (principal); L97.812 Non-pressure chronic ulcer of other part of right lower leg with fat layer exposed; I10 Essential (primary) hypertension | CPT/HCPCS: 11042; 99212 ==

== ENCOUNTER 2022-09-26 09:20 | Observation (INO) | payer OTHER, MEDICAID, SELFPAY ==
[2022-09-26] VITALS (10 sets, daily range): BP systolic 140–179; BP diastolic 63–90; PULSE 70–94; RESP 16–22; TEMP 36.3–37.1; O2SAT 91–97; BMI 34.0
--- NOTE | ~2022-09-26 | XR_ITS ---
EXAMINATION: XR CHEST CLINICAL INFORMATION: Shortness of breath COMPARISON: 04/21/2022 TECHNIQUE: 2 views of the chest were obtained. FINDINGS: The lungs do appear to be hyperaerated but grossly clear. No pleural effusions. Minimal scarring in the left midlung is stable. Heart size normal with normal caliber pulmonary vessels. XR/XR chest 2V IMPRESSION: Stable lingular scarring. No active disease.
--- NOTE | 2022-09-26 09:21 | ECG_ITS ---
Test Reason : chest pain Blood Pressure : / mmHG Vent. Rate : 077 BPM Atrial Rate : 077 BPM P-R Int : 168 ms QRS Dur : 082 ms QT Int : 388 ms P-R-T Axes : 082 038 052 degrees QTc Int : 439 ms Sinus rhythm with occasional Premature ventricular complexes Otherwise normal ECG When compared with ECG of 22-SEP-2019 07:57, Premature ventricular complexes are now Present Referred By: Generic ED Physician Electronically Signed By:Kaleb Aden
--- NOTE | 2022-09-26 10:23 | ED_ITS ---
HPI - Asthma General Chief Complaint: Asthma Stated Complaint: Asthma/chest tightness Time Seen by Provider: 09/26/22 10:18 Source: patient, family and old records reviewed Mode of arrival: ambulatory Limitations: no limitations History of Present Illness HPI Narrative: 77 yo Uz[place] speaking female with history of asthma, anxiety/depression, MGUS, osteoarthritis, right ankle ulcer followed by [facility] who presents to the ER for evaluation of worsening asthma symptoms since yesterday. She was recently exposed to a family member who had a cold. She states yesterday she started having increased wheezing and chest tightness. She has been using her nebulizer machine at home with no improvement. She reports symptoms were even worse today so she came to the ER for further evaluation. She reports coughing fits that are causing headaches and chest discomfort. She states she is bringing up clear and white phlegm. No fevers. She took an at home COVID test that was negative. She denies any nausea, vomiting, diarrhea, abdominal pain. MD complaint: shortness of breath and wheezing Onset (ago): day(s) (2) Severity: moderate Context: recent URI Associated symptoms: productive cough, dry cough and chest pain Treatments Prior to Arrival: inhaled bronchodilator Related Data Current Asthma Therapy: inhaled bronchodilator Previous Rx's Medication Instructions Recorded tizanidine 4 mg tablet 4 mg PO TID #270 tabs 07/24/20 calcium carb-vit D3-minerals 600 1 tab PO .QD 90 days #90 tabs 04/07/21 mg calcium-200 unit tablet inhalational spacing device #1 ea 04/07/21 (Aerochamber MV spacer) lubiprostone 24 mcg capsule 24 mcg PO BID #60 caps 07/10/21 (Amitiza) miscellaneous medical supply #1 ea 08/15/21 cholecalciferol (vitamin D3) 25 25 mcg PO DAILY 90 days #90 caps 09/06/21 mcg (1,000 unit) capsule fluticasone propionate 110 1 puff inhalation BID 30 days #12 03/23/22 mcg/actuation HFA aerosol inhaler grams (Flovent HFA) acetaminophen 650 mg 650 mg PO Q8H PRN pain 30 days #90 04/25/22 tablet,extended release tabs albuterol sulfate 2.5 mg/3 mL See Rx Instructions inhalation QID 05/10/22 (0.083 %) solution for nebulization PRN shortness of breath or wheezing #1,050 mL loratadine 10 mg tablet 10 mg PO DAILY PRN allergy 05/10/22 symptoms 90 days #90 tabs alendronate 70 mg tablet 70 mg PO QWEEK #12 tabs 05/28/22 albuterol sulfate 90 mcg/actuation 1 puff inhalation Q6H #8.5 ea 07/01/22 aerosol inhaler gabapentin 300 mg capsule 300 mg PO BID 30 days #60 caps 07/02/22 sennosides 8.6 mg capsule (senna) 8.6 mg PO BEDTIME PRN constipation 07/23/22 90 days #90 caps atorvastatin 80 mg tablet 80 mg PO BEDTIME #90 tabs 07/31/22 tramadol 50 mg tablet 50 mg PO BID PRN pain 30 days #60 07/31/22 tabs candesartan 32 mg tablet 32 mg PO DAILY #90 tabs 09/03/22 zolpidem 10 mg tablet 10 mg PO BEDTIME PRN sleep #30 tabs 09/03/22 triamcinolone acetonide 0.1 % 1 appl topical BID 10 days #30 09/06/22 topical cream grams doxycycline monohydrate 100 mg 100 mg PO BID 7 days #14 caps 09/07/22 capsule prednisone 10 mg tablets in a dose See Rx Instructions PO PER PKG DIR 09/25/22 pack 8 days #20 tabs Allergies Allergy/AdvReac Type Severity Reaction Status Date / Time acetaminophen [From PERCOCET] Allergy Intermediate HIVES Verified 09/07/22 12:30 morphine [MORPHINE] Allergy Intermediate VOMITING Verified 09/07/22 12:30 Penicillins [PENICILLINS] Allergy Mild RASH Verified 09/07/22 12:30 oxaprozin [From Daypro] Allergy Unknown RASH Verified 09/07/22 12:30 oxycodone [From PERCOCET] AdvReac Intermediate VOMITING Verified 09/07/22 12:30 AND DIZZINESS budesonide [Symbicort] AdvReac Unknown nausea and Verified 09/07/22 12:30 vomiting Review of Systems Review of Systems: Yes all other systems are reviewed and are negative PMFSH Past Medical History Medical History Allergic rhinitis Anxiety Asthma Benign essential hypertension Depression GERD without esophagitis Insomnia Obesity (BMI 30-39.9) Osteoarthritis Osteopenia PAF (paroxysmal atrial fibrillation) Paroxysmal atrial fibrillation Pure hypercholesterolemia Vitamin D deficiency Surgical History History of colonoscopy Family History Family History Father CVD (cardiovascular disease) Stroke Mother Medical history unknown Social History Social History Housing: Apartment Alcohol intake: never Patient Tobacco Use Status: Never used Tobacco Smoked in Last 30 Days: No e-Cigarette/Vaping Use: Never Used Second Hand Smoke Exposure: Yes Use of substances other than those prescribed or required for medical reasons: No Advance Directives: No Advance Directives Information Provided: Yes service: No Current occupational status: disabled Cognitive needs: No Hearing needs: No Vision needs: Yes (glasses) Physical Exam Vital Signs: Vital Signs: Last Vital Signs Temp 98.3 F 09/26/22 09:28 Pulse 80 09/26/22 12:17 Resp 21 H 09/26/22 12:17 BP 148/63 H 09/26/22 12:02 Pulse Ox 95 09/26/22 12:02 O2 Del Method 09/26/22 12:02 BMI result Body Mass Index 34.0 Appearance: Alert. Oriented X3. No acute distress. Eyes: Pupils equal, round and reactive to light. ENT: Pharynx normal. Neck: Normal inspection. Neck supple. CVS: Normal heart rate and rhythm. Pulses normal. Respiratory: No respiratory distress. Able to speak in complete sentences. Breath sounds with diffuse expiratory wheezes throughout. Prolonged expiratory phase. Abdomen: Soft and nontender. +BS x4 Skin: Skin warm and dry. Normal skin color. Normal skin turgor. No rashes. Extremities: No lower extremity edema. Chronic ulcer on the right lower extr emity. Neuro: Oriented X 3. No motor deficit. No sensory deficit. Course Reevaluation(s) Reevaluation #1: Patient given 10 mg of albuterol over the course of an hour with ongoing expiratory wheezes, audible at the bedside. Prolonged expiratory phase and patient feels very short of breath still. Will repeat another 10 mg albuterol treatment. Concern she may require admission to the hospital for further management. Reevaluation #2: After 2nd albuterol treatment patient remains very audibly wheezy and is still complaining of being short of breath. Will plan to admit for further treatment of acute asthma exacerbation. Medications Administered Discontinued Medications Generic Name Dose Route Start Last Admin Trade Name Ariella PRN Reason Stop Dose Admin Albuterol Sulfate 10 mg 09/26/22 10:22 09/26/22 10:55 Albuterol Sulfate (0.083%) 2.5 Mg/3 Ml Vial.Neb INHALE 09/26/22 10:23 10 mg ONCE ONE Administration Albuterol Sulfate 10 mg 09/26/22 12:02 09/26/22 12:17 Albuterol Sulfate (0.083%) 2.5 Mg/3 Ml Vial.Neb INHALE 09/26/22 12:03 10 mg ONCE ONE Administration Magnesium Sulfate 2 gm in 50 mls @ 25 mls/hr 09/26/22 10:22 09/26/22 11:34 Magnesium Sulfate/H2o IV 09/26/22 12:21 Infused ONCE ONE Infusion Methylprednisolone Sodium Succinate 125 mg 09/26/22 10:22 09/26/22 11:07 Methylprednisolone Sod Succ 125 Mg/2 Ml Vial IVPUSH 09/26/22 10:23 125 mg ONCE ONE Administration Medical Decision Making Medical Decision Making MDM Narrative: 77-year-old female with history of asthma, anxiety/depression, MGUS, oste oarthritis, right ankle ulcer followed by [facility] Clinic who presents to the ER for evaluation of wheezing and chest tightness for the last 2 days. Recent URI exposure. On arrival to the ER she is not in any respiratory distress, able to speak in complete sentences. She is saturating well on room air. She does have expiratory wheezes throughout. Albuterol 10 mg neb, IV steroids and IV mag ordered. Unfortunately after 20 mg of albuterol, 125 mg of Solu-Medrol and 2 g of magnesium patient continues to be audibly wheezy and is still feeling short of breath. Will plan to admit for further evaluation and treatment. Differential Diagnosis Differential Diagnoses: The differential diagnosis associated with the presentation includes Acute asthma exacerbation, CHF exacerbation, pneumonia, bronchitis, viral syndrome, viral URI, COVID, flu, RSV, pneumonitis Admission/Observation Consideration of admission/observation: Escalation of care including admission/o bservation considered Continues to be very wheezy & symptomatic despite treatment for asthma, will admit Consult Healthcare Provider Management of the patient was discussed with: Hospitalist Dr. Adriana ROSALES for admission who accepts Lab Data MDM Lab Attestation statement: I reviewed the patient's lab results. Lab workup reviewed, no leukocytosis, normal renal function, no minute major metabolic derangements, BNP 102 not consistent with heart failure or acute CHF exacerbation 09/26/22 10:51 09/26/22 10:51 Labs: Lab Results 09/26/22 09/26/22 09/26/22 Range/Units 10:35 10:51 10:51 WBC 5.1 (4.8-10.8) X10*3/uL RBC 4.62 (4.20-5.50) X10*6/uL Hgb 12.5 (12.0-16.0) g/dl Hct 40.4 (37.0-47.0) % MCV 87.4 (80.0-98.0) fL MCH 27.1 (27.0-33.0) pg MCHC 30.9 L (31.0-35.0) g/dl RDW 14.0 (11.0-16.0) % Plt Count 202 D (160-400) X10*3/uL MPV 10.8 (9.4-12.3) fL Immature Gran % (Auto) 0.4 (0.0-0.4) % Neut % (Auto) 72.5 (45-73) % Lymph % (Auto) 14.3 L (20-40) % [place] % (Auto) 10.0 (2-11) % Eos % (Auto) 2.4 (0-4) % Baso % (Auto) 0.4 (0-2) % Lymph # (Auto) 0.7 L (1.2-4.9) X10*3/uL [place] # (Auto) 0.5 (0.1-1.2) X10*3/uL Eos # (Auto) 0.1 (0.0-0.4) X10*3/uL Baso # (Auto) 0.0 (0.0-0.2) X10*3/uL Abs Immat Gran (auto) 0.02 (0.00-0.03) X10*3/uL Absolute Neuts (auto) 3.7 (2.0-8.3) x10*3/uL Absolute Nucleated RBC 0.000 (0.0-0.012) X10*3/uL Nucleated RBC % (auto) 0.0 (0.0-0.2) /100WBC Sodium 142 (135-145) mmol/L Potassium 4.7 (3.3-5.1) mmol/L Chloride 106 (96-108) mmol/L Carbon Dioxide 28 (22-29) mmol/L Anion Gap 13 (12-20) BUN 14 (9-16) mg/dL Creatinine 0.68 (0.5-1.4) mg/dL Estim Creat Clear Calc 67.1 Estimated GFR > 60 Random Glucose 86 (60-115) mg/dL Calcium 8.6 D (8.4-10.2) mg/dL Total Bilirubin 0.6 (0.0-1.0) mg/dL Direct Bilirubin < 0.2 (0.0-0.5) mg/dL AST 32 H (5-31) U/L ALT 24 (0-31) U/L Alkaline Phosphatase 114 (39-117) U/L Troponin I High Sens (<3.5-17.0) ng/L B-Natriuretic Peptide (<100) pg/mL Total Protein 6.5 (6.5-8.0) g/dL Albumin 3.9 (3.5-5.0) g/dL Influenza Type A (PCR) NEGATIVE (Negative) Influenza Type B (PCR) NEGATIVE (Negative) RSV RNA Qual (PCR) NEGATIVE (Negative) SARS-CoV-2 RNA (RT-PCR) NEGATIVE (Negative) 09/26/22 09/26/22 Range/Units 10:51 10:51 WBC (4.8-10.8) X10*3/uL RBC (4.20-5.50) X10*6/uL Hgb (12.0-16.0) g/dl Hct (37.0-47.0) % MCV (80.0-98.0) fL MCH (27.0-33.0) pg MCHC (31.0-35.0) g/dl RDW (11.0-16.0) % Plt Count (160-400) X10*3/uL MPV (9.4-12.3) fL Immature Gran % (Auto) (0.0-0.4) % Neut % (Auto) (45-73) % Lymph % (Auto) (20-40) % [place] % (Auto) (2-11) % Eos % (Auto) (0-4) % Baso % (Auto) (0-2) % Lymph # (Auto) (1.2-4.9) X10*3/uL [place] # (Auto) (0.1-1.2) X10*3/uL Eos # (Auto) (0.0-0.4) X10*3/uL Baso # (Auto) (0.0-0.2) X10*3/uL Abs Immat Gran (auto) (0.00-0.03) X10*3/uL Absolute Neuts (auto) (2.0-8.3) x10*3/uL Absolute Nucleated RBC (0.0-0.012) X10*3/uL Nucleated RBC % (auto) (0.0-0.2) /100WBC Sodium (135-145) mmol/L Potassium (3.3-5.1) mmol/L Chloride (96-108) mmol/L Carbon Dioxide (22-29) mmol/L Anion Gap (12-20) BUN (9-16) mg/dL Creatinine (0.5-1.4) mg/dL Estim Creat Clear Calc Estimated GFR Random Glucose (60-115) mg/dL Calcium (8.4-10.2) mg/dL Total Bilirubin (0.0-1.0) mg/dL Direct Bilirubin (0.0-0.5) mg/dL AST (5-31) U/L ALT (0-31) U/L Alkaline Phosphatase (39-117) U/L Troponin I High Sens 4.4 (<3.5-17.0) ng/L B-Natriuretic Peptide 102 H (<100) pg/mL Total Protein (6.5-8.0) g/dL Albumin (3.5-5.0) g/dL Influenza Type A (PCR) (Negative) Influenza Type B (PCR) (Negative) RSV RNA Qual (PCR) (Negative) SARS-CoV-2 RNA (RT-PCR) (Negative) Independent Interpretation I performed an independent interpretation of an: EKG Interpretation: EKG reviewed, normal sinus rhythm, ventricular rate 77 beats per minute, occasional PVCs, no ST segment elevations or depressions, normal ID interval. Chest x-ray reviewed, some haziness in the bilateral bases but no focal infiltrate or effusion. Scarring in the lingula, agree with radiologist's read. Radiology Impression Discussion of test interpretation with radiology: I have reviewed the radiologist's reading. Radiologist Impression: EXAMINATION: XR CHEST CLINICAL INFORMATION: Shortness of breath COMPARISON: 04/21/2022 TECHNIQUE: 2 views of the chest were obtained. FINDINGS: The lungs do appear to be hyperaerated but grossly clear. No pleural effusions. Minimal scarring in the left midlung is stable. Heart size normal with normal caliber pulmonary vessels. IMPRESSION: Stable lingular scarring. No active disease. Independent Historian Clinical information obtained from an independent historian. History obtained from or confirmed by: Other (son) External Record Review External record reviewed: Office record, Outpatient record, Prior outpatient labs, Prior outpatient radiology and Primary care record Tests considered The following testing was considered but not selected: ABG/VBG considered - not ordered given she is oxtgenating well, not somnoloent to suggest CO2 retention Prescription Management I considered prescription management with: Antibiotic Chronic Conditions Patient?s care impacted by: Other (asthma) Critical Care Time Critical Care Time Critical Care Time: Yes Total Critical Care Time: 46 Attestation: I have personally provided critical care time exclusive of time spent on separately billable procedures. Time includes review of lab data, radiology results, discussion with consultants, and monitoring for potential decompensation. Intervention performed as documented. Discharge Plan Discharge Clinical Impression: Acute asthma exacerbation Patient Disposition: Admitted As Inpatient
[2022-09-26] MEDS: Albuterol Sulfate (0.083%) 2.5 MG/3 ML VIAL.NEB 10 MG INHALE ×2 (10:55→12:17)
--- NOTE | 2022-09-26 10:55 | PC.NURSE ---
pt aox3, wheezes noted bilaterally with productive cough. pt RR 18, O2 93% RA. IV inserted, labs drawn, EKG done. Resp in for updraft.
[2022-09-26 10:57] LABS: MANUAL DIFF FLAG NO
[2022-09-26 10:58] LABS: Basophils Percent Auto 0.4 % (0-2); Eosinophils Absolute Auto 0.1 X10*3/uL (0.0-0.4); Eosinophils Percent Auto 2.4 % (0-4); Hematocrit 40.4 % (37.0-47.0); Hemoglobin 12.5 g/dl (12.0-16.0); Imm Gran Abs Auto 0.02 X10*3/uL (0.00-0.03); Imm Gran Pct Auto 0.4 % (0.0-0.4); Lymphocytes Absolute Auto 0.7 X10*3/uL (1.2-4.9); Lymphocytes Percent Auto 14.3 % (20-40); Mean Corpuscular HGB Conc 30.9 g/dl (31.0-35.0); Mean Corpuscular Hemoglobin 27.1 pg (27.0-33.0); Mean Corpuscular Volume 87.4 fL (80.0-98.0); Mean Platelet Volume 10.8 fL (9.4-12.3); Monocytes Absolute Auto 0.5 X10*3/uL (0.1-1.2); Neutrophils Absolute Auto 3.7 x10*3/uL (2.0-8.3); Neutrophils Percent Auto 72.5 % (45-73); Platelet Count 202 X10*3/uL (160-400); Red Blood Count 4.62 X10*6/uL (4.20-5.50); White Blood Count 5.1 X10*3/uL (4.8-10.8)
[2022-09-26] MEDS: Magnesium Sulfate/H2O 2 GM/50 ML PIGGYBACK IV (11:06)
[2022-09-26] MEDS: methylPREDNISolone Sod Succ 125 MG/2 ML VIAL IVPUSH (11:07)
--- NOTE | 2022-09-26 11:11 | PC.NURSE ---
monitoring analyst intact, VSS. Solumedrol given per order, mag running per order. Updraft running, will cont to belen
[2022-09-26 11:14] LABS: Alanine Aminotransferase 24 U/L (0-31); Albumin Level 3.9 g/dL (3.5-5.0); Alkaline Phosphatase 114 U/L (39-117); Anion Gap 13 (12-20); Aspartate Amino Transferase 32 U/L (5-31); Bilirubin Direct < 0.2 mg/dL (0.0-0.5); Bilirubin Total 0.6 mg/dL (0.0-1.0); Blood Urea Nitrogen 14 mg/dL (9-16); Calcium 8.6 mg/dL (8.4-10.2); Carbon Dioxide 28 mmol/L (22-29); Chloride 106 mmol/L (96-108); Creatinine Clr Calc Pharmacy 67.1; Estimated Glomerular Filt Rate > 60; Glucose Random 86 mg/dL (60-115); Potassium 4.7 mmol/L (3.3-5.1); Sodium 142 mmol/L (135-145); Total Protein 6.5 g/dL (6.5-8.0)
[2022-09-26 11:17] LABS: Influenza A PCR NEGATIVE (Negative); Influenza B PCR NEGATIVE (Negative); Resp Syncy Virus RNA Qual PCR NEGATIVE (Negative); SARS COV2 PCR INHOUSE NEGATIVE (Negative)
[2022-09-26 11:18] LABS: B Type Natriuretic Peptide 102 pg/mL (<100)
[2022-09-26 11:19] LABS: Troponin-I High Sensitivity 4.4 ng/L (<3.5-17.0)
--- NOTE | 2022-09-26 12:03 | PC.NURSE ---
albuterol treatment finished - wheezes still noted bilaterally, HR 81. O2 95% RA.
--- NOTE | 2022-09-26 13:09 | PM.IMHP ---
History of Present Illness Date of Service: 09/26/22 Attending physician on admission: [facility] [place] Chief Complaint: sob 77-year-old female with history of anxiety/depression, mild persistent asthma, IBS, GERD, hypertension, osteopenia, paroxysmal atrial fibrillation not on anticoagulation, hypercholesterolemia, chronic ulcer of the right ankle followed by Wound Clinic, and MGUS for evaluation of shortness of breath, chest tightness, and wheezing ongoing since yesterday. States she was recently exposed to a family member who had an upper respiratory infection, known type but negative for COVID-19 per the patient. She has been using her nebulizer at home without improvements. On arrival, patient afebrile, tachypneic to 22 and hypertensive to 179/84 with improvement in blood pressure 148/63. There is no hypoxia. No leukocytosis. Renal function and electrolyte levels are normal. Troponin negative, BNP 102. Negative for influenza, COVID-19, and RSV. Chest x-ray showing stable lingular scarring but no acute cardiopulmonary disease. In the ED, patient has received 10 mg albuterol nebulization, IV magnesium, and 125 mg methylprednisolone but wheezing persists. Has been hospitalitized in past for asthma, but no intubations. Most recent hospitalization was last year, but reports multiple exacerbations annually despite flovent use. Patient to be observed for acute asthma exacerbation. Review of Systems Review of Systems: General: No fevers, malaise, unintentional weight loss HEENT: No blurred vision, diplopia. No sore throat, nasal congestion, rhinorrhea, sinus pain, ear pain Cardiovascular: +chest tightness. No chest pain, palpitations, or leg edema Respiratory: +sob, +wheezing, +cough GI: No abdominal pain, nausea, vomiting, diarrhea, constipation, melena, hematochezia : No dysuria, hematuria, increased urinary frequency, decreased urinary output MSK: No myalgia, back pain Neuro: No headaches, weakness, paresthesias Skin: No rashes or lesions [facility] Medical History Allergic rhinitis Anxiety Asthma Benign essential hypertension Depression GERD without esophagitis Insomnia Obesity (BMI 30-39.9) Osteoarthritis Osteopenia PAF (paroxysmal atrial fibrillation) Paroxysmal atrial fibrillation Pure hypercholesterolemia Vitamin D deficiency Family History Father CVD (cardiovascular disease) Stroke Mother Medical history unknown Surgical History History of colonoscopy Social History Housing: Apartment Alcohol intake: never Patient Tobacco Use Status: Never used Tobacco Smoked in Last 30 Days: No e-Cigarette/Vaping Use: Never Used Second Hand Smoke Exposure: Yes Use of substances other than those prescribed or required for medical reasons: No Advance Directives: No Advance Directives Information Provided: Yes Nutrition Risks: No Nutritional Risk service: No Current occupational status: disabled Cognitive needs: No Hearing needs: No Vision needs: Yes (glasses) Meds Allergies Allergy/AdvReac Type Severity Reaction Status Date / Time acetaminophen [From PERCOCET] Allergy Intermediate HIVES Verified 09/07/22 12:30 morphine [MORPHINE] Allergy Intermediate VOMITING Verified 09/07/22 12:30 Penicillins [PENICILLINS] Allergy Mild RASH Verified 09/07/22 12:30 oxaprozin [From Daypro] Allergy Unknown RASH Verified 09/07/22 12:30 oxycodone [From PERCOCET] AdvReac Intermediate VOMITING Verified 09/07/22 12:30 AND DIZZINESS budesonide [Symbicort] AdvReac Unknown nausea and Verified 09/07/22 12:30 vomiting Home Medications Medication Instructions Recorded Confirmed Last Taken Type alendronate 70 mg tablet 70 mg PO MO 09/26/22 09/26/22 09/24/22 History calcium carb-vit D3-minerals 600 1 tab PO DAILY 09/26/22 09/26/22 09/25/22 History mg calcium-200 unit tablet zolpidem 10 mg tablet 5 mg PO BEDTIME PRN sleep 09/26/22 09/26/22 09/25/22 History Physical Exam Vital Signs and Narrative: Vital Signs: Last Vital Signs Temp 98.3 F 09/26/22 09:28 Pulse 80 09/26/22 12:17 Resp 21 H 09/26/22 12:17 BP 148/63 H 09/26/22 12:02 Pulse Ox 95 09/26/22 12:02 O2 Del Method 09/26/22 12:02 BMI result Body Mass Index 34.0 Constitutional - Awake and Alert, No apparent distress Eyes - PERRLA, EOMI Cardiovascular - S1S2, RRR, No edema Respiratory - Normal lung expansion, Normal respiratory effort, No respiratory distress, coarse lung sound bilaterally with diffuse expiratory wheezing Gastrointestinal - NT / ND; +BS; No rebound or guarding Extremities - no calf tenderness bilaterally, no swelling Skin - Warm/Dry Neurological - Alert & oriented x3, 5/5 strength BUE and BLE Psychological - Appropriate affect Results Labs 09/26/22 10:51 09/26/22 10:51 Labs: Laboratory Results - last 24 hr 09/26/22 09/26/22 09/26/22 10:35 10:51 10:51 MCV 87.4 MCH 27.1 MCHC 30.9 L RDW 14.0 Plt Count 202 D MPV 10.8 Immature Gran % (Auto) 0.4 Neut % (Auto) 72.5 Lymph % (Auto) 14.3 L [place] % (Auto) 10.0 Eos % (Auto) 2.4 Baso % (Auto) 0.4 Lymph # (Auto) 0.7 L [place] # (Auto) 0.5 Eos # (Auto) 0.1 Baso # (Auto) 0.0 Abs Immat Gran (auto) 0.02 Absolute Neuts (auto) 3.7 Absolute Nucleated RBC 0.000 Nucleated RBC % (auto) 0.0 Anion Gap 13 Estim Creat Clear Calc 67.1 Estimated GFR > 60 Random Glucose 86 Calcium 8.6 D Total Bilirubin 0.6 Direct Bilirubin < 0.2 AST 32 H ALT 24 Alkaline Phosphatase 114 Troponin I High Sens B-Natriuretic Peptide Total Protein 6.5 Albumin 3.9 Influenza Type A (PCR) NEGATIVE Influenza Type B (PCR) NEGATIVE RSV RNA Qual (PCR) NEGATIVE SARS-CoV-2 RNA (RT-PCR) NEGATIVE 09/26/22 09/26/22 10:51 10:51 MCV MCH MCHC RDW Plt Count MPV Immature Gran % (Auto) Neut % (Auto) Lymph % (Auto) [place] % (Auto) Eos % (Auto) Baso % (Auto) Lymph # (Auto) [place] # (Auto) Eos # (Auto) Baso # (Auto) Abs Immat Gran (auto) Absolute Neuts (auto) Absolute Nucleated RBC Nucleated RBC % (auto) Anion Gap Estim Creat Clear Calc Estimated GFR Random Glucose Calcium Total Bilirubin Direct Bilirubin AST ALT Alkaline Phosphatase Troponin I High Sens 4.4 B-Natriuretic Peptide 102 H Total Protein Albumin Influenza Type A (PCR) Influenza Type B (PCR) RSV RNA Qual (PCR) SARS-CoV-2 RNA (RT-PCR) Imaging Radiologist's Impressions: Impressions Chest X-Ray 09/26/22 09:41 IMPRESSION: Stable lingular scarring. No active disease. Assessment and Plan (1) Acute asthma exacerbation: Status: Acute Plan 77-year-old female with history of anxiety/depression, mild persistent asthma, IBS, GERD, hypertension, osteopenia, paroxysmal atrial fibrillation not on anticoagulation, hypercholesterolemia, chronic ulcer of the right ankle followed by Wound Clinic, and MGUS to be observed for acute asthma exacerbation. #Acute mild persistent asthma exacerbation -CXR negative for pneumonia -Negative COVID-19, influenza, RSV. Full viral respiratory panel pending -IV methylprednisolone 40 mg b.i.d. -DuoNebs q.4h while awake -albuterol nebs q.2h p.r.n. -Continue flovent for maintenance. Consider step up for maintenance therapy on discharge # hypertension- reasonably controlled -continue home antihypertensives # paroxysmal atrial fibrillation-rate controlled -not on anticoagulation #IBS -continue home meds #Mood disorder/insomnia -continue home meds #Chronic ulcer right ankle- present on arrival -outpt follow up with wound care Full code dvt prophylaxis- lovenox Time Spent With Patient Time: Total time managing care of this patient today ____ minutes. Quality Stroke Does the patient have a stroke diagnosis?: No VTE Prior VTE?: No VTE Risk Level:: Medical - moderate - high VTE Device Contraindication: Treatment Not Indicated VTE Drug Contraindication: N/A - Med Ordered
--- NOTE | 2022-09-26 13:49 | PC.NURSE ---
pt O2 sat 94 RA. wheezes bilaterally throughout. operations manager intact. pt resting comfortably, waiting for bed assignment. will cont. to belen.
--- NOTE | 2022-09-26 14:02 | PC.NURSE ---
resp panel sent to lab
[2022-09-26] MEDS: Enoxaparin Sodium 40 MG/0.4 ML SYRINGE SUBCUT (14:17)
--- NOTE | 2022-09-26 14:19 | PC.NURSE ---
lovenox given per order
--- NOTE | 2022-09-26 14:37 | PC.NURSE ---
report given, waiting for transport.
--- NOTE | 2022-09-26 14:45 | PHA.MEDREC ---
Pharmacy Consult ? Medication Reconciliation Pharmacy has completed the medication reconciliation. Med rec completed using mostly claim history. Patient was able to confirm that she takes all the medications filled at the pharmacy and I reviewed the claim history for her.
[2022-09-26 15:29] LABS: Adenovirus PCR Not Detected (Not Detect.); Bordetella parapertussis PCR Not Detected (Not Detect.); Bordetella pertussis PCR Not Detected (Not Detect.); Chlamydia pneumoniae PCR Not Detected (Not Detect.); Human metapneumovirus PCR Detected (Not Detect.)
[2022-09-26 15:30] LABS: Coronavirus 229E PCR Not Detected (Not Detect.); Coronavirus HKU1 PCR Not Detected (Not Detect.); Coronavirus NL63 PCR Not Detected (Not Detect.); Coronavirus OC43 PCR Not Detected (Not Detect.); Influenza A PCR Not Detected (Not Detect.); Influenza B PCR Not Detected (Not Detect.); Mycoplasma pneumoniae PCR Not Detected (Not Detect.); Parainfluenza 1 PCR Not Detected (Not Detect.); Parainfluenza 2 PCR Not Detected (Not Detect.); Parainfluenza 3 PCR Not Detected (Not Detect.); Parainfluenza 4 PCR Not Detected (Not Detect.); RSV PCR Not Detected (Not Detect.); Rhino/Enterovirus PCR Not Detected (Not Detect.); SARS-CoV-2 PCR Not Detected (Not Detect.)
--- NOTE | 2022-09-26 15:32 | PC.NURSE ---
Admitted to [facility] , alert and oriented x4 , Korean speaking. Pt stated she resides home alone, has VNA services and [employer] services. Pt had venous ulcer to right lower leg , dressing i intact, pt stated she had appointment scheduled to the wound clinic today but she missed d/t her acute illness .
[2022-09-26] MEDS: 0.9 % Sodium Chloride Flush 3 ML SYRINGE IVFLUSH ×2 (15:36→23:32)
[2022-09-26] MEDS: Benzonatate 100 MG CAPSULE PO ×2 (17:08→20:48)
[2022-09-26] MEDS: Acetaminophen 325 MG TABLET 650 MG PO (17:08)
[2022-09-26] MEDS: guaiFENesin 200 MG/10 ML 10 ML LIQUID PO ×2 (17:09→20:48)
[2022-09-26] MEDS: Fluticasone Propionate 100 MCG BLST.W.DEV 1 PUFF INHALE (19:50)
[2022-09-26] MEDS: Atorvastatin Calcium 80 MG TABLET PO (20:48)
[2022-09-26] MEDS: Triamcinolone Acet 0.1 % Cream 15 GM TUBE 1 APPL TOPICAL (20:49)
[2022-09-26] MEDS: Sennosides 8.6 MG TABLET PO (20:55)
[2022-09-26] MEDS: Docusate Sodium 100 MG CAPSULE PO (20:55)
[2022-09-26] MEDS: methylPREDNISolone Sod Succ 40 MG/ML VIAL IVPUSH (22:01)
[2022-09-26] MEDS: Zolpidem Tartrate 5 MG TABLET PO (22:01)
[2022-09-27] VITALS: BP 134/82; PULSE 86; RESP 16; TEMP 36.4; O2SAT 95
[2022-09-27 03:39] VITALS: BP 170/88; PULSE 88; RESP 16; TEMP 36.6; O2SAT 98
[2022-09-27 04:15] VITALS: PULSE 76; RESP 20; O2SAT 92
[2022-09-27 06:34] LABS: Basophils Percent Auto 0.1 % (0-2); Hematocrit 41.6 % (37.0-47.0); Hemoglobin 12.8 g/dl (12.0-16.0); Imm Gran Abs Auto 0.11 X10*3/uL (0.00-0.03); Lymphocytes Absolute Auto 0.5 X10*3/uL (1.2-4.9); Lymphocytes Percent Auto 4.7 % (20-40); MANUAL DIFF FLAG SCAN; Mean Corpuscular HGB Conc 30.8 g/dl (31.0-35.0); Mean Corpuscular Hemoglobin 26.8 pg (27.0-33.0); Mean Platelet Volume 12.1 fL (9.4-12.3); Monocytes Absolute Auto 0.3 X10*3/uL (0.1-1.2); Neutrophils Absolute Auto 9.9 x10*3/uL (2.0-8.3); Neutrophils Percent Auto 91.2 % (45-73); Platelet Count 295 X10*3/uL (160-400); Red Blood Count 4.78 X10*6/uL (4.20-5.50); SCAN SMEAR FLAG 1; White Blood Count 10.8 X10*3/uL (4.8-10.8)
[2022-09-27 06:57] LABS: SLIDE REVIEW VERIFIED
[2022-09-27 07:09] LABS: Anion Gap 17 (12-20); Blood Urea Nitrogen 19 mg/dL (9-16); Carbon Dioxide 24 mmol/L (22-29); Chloride 106 mmol/L (96-108); Creatinine Clr Calc Pharmacy 58.5; Estimated Glomerular Filt Rate > 60; Glucose Random 130 mg/dL (60-115); Magnesium 2.3 mg/dL (1.6-2.6); Potassium 4.6 mmol/L (3.3-5.1); Sodium 142 mmol/L (135-145)
[2022-09-27] MEDS: 0.9 % Sodium Chloride Flush 3 ML SYRINGE IVFLUSH (07:29)
[2022-09-27] MEDS: Calcium + Vitamin D 250 MG TABLET 500 MG PO (07:29)
[2022-09-27] MEDS: Cholecalciferol (Vitamin D3) 25 MCG TABLET PO (07:29)
[2022-09-27] MEDS: guaiFENesin 200 MG/10 ML 10 ML LIQUID PO (07:29)
[2022-09-27] MEDS: Valsartan 160 MG TABLET PO (07:29)
[2022-09-27] MEDS: Gabapentin 300 MG CAPSULE PO (07:30)
[2022-09-27 07:59] VITALS: PULSE 75; RESP 20; O2SAT 93
[2022-09-27] MEDS: Fluticasone Propionate 100 MCG BLST.W.DEV 1 PUFF INHALE (07:59)
[2022-09-27 08:00] VITALS: BP 174/94; PULSE 84; RESP 18; TEMP 36.2; O2SAT 95
--- NOTE | 2022-09-27 09:00 | P.DS_ITS ---
DS: Providers Provider Date of Service: 09/27/22 Date of admission: 09/26/22 13:39 Primary care physician: Milton Ackerman MD DS: Diagnosis Discharge Diagnosis (1) Acute asthma exacerbation: Status: Acute DS: Summary Hospital Course Hospital Course: 77-year-old female with history of anxiety/depression, mild persistent asthma, IBS, GERD, hypertension, osteopenia, paroxysmal atrial fibrillation not on anticoagulation, hypercholesterolemia, chronic ulcer of the right ankle followed by [facility], and [facility] for evaluation of shortness of breath, chest tightness, and wheezing ongoing since yesterday. States she was recently exposed to a family member who had an upper respiratory infection, known type but negative for COVID-19 per the patient. She has been using her nebulizer at home without improvements. On arrival, patient afebrile, tachypneic to 22 and hypertensive to 179/84 with improvement in blood pressure 148/63. There is no hypoxia. No leukocytosis. Renal function and electrolyte levels are normal. Troponin negative, BNP 102. Negative for influenza, COVID-19, and RSV. Chest x-ray showing stable lingular scarring but no acute cardiopulmonary disease. In the ED, patient has received 10 mg albuterol nebulization, IV magnesium, and 125 mg methylprednisolone but wheezing persists. Has been hospitalitized in past for asthma, but no intubations. Most recent hospitalization was last year, but reports multiple exacerbations annually despite flovent use. Patient to be observed for acute asthma exacerbation. Hospital course: Patient presented with shortness of breath and found to have acute exacerbaion of asthma that is likely precipitated by human metapneumo virus. She was admitted, treated with IV solumedrol, bronchodilators by Ne[facility] and made more than anticipated rapid recovery by the next day, breathing comfortably, no need for oxygen, lungs clear. She will be discharged with Prednisone to complete 3 day course and to follow. No specif treatment needed for virus. She is comfortable going home Time Spent with Patient Time attestation: Total time managing care of this patient today ____ minutes. Discharge coordination time: Greater than 30 minutes Quality: Safe Use of Opioids Does Pt have an Active Cancer Diagnosis on the Problem List?: No Quality: Stroke Does the patient have a stroke diagnosis?: No Physical Exam Vital Signs: Vital Signs: Last Vital Signs Temp 97.2 F 09/27/22 08:00 Pulse 84 09/27/22 08:00 Resp 18 09/27/22 08:00 BP 174/94 H 09/27/22 08:00 Pulse Ox 95 09/27/22 08:00 O2 Del Method 09/27/22 08:00 BMI result Body Mass Index 34.0 DS: Data Data Completed and Pending Labs on day of discharge: Laboratory Results - last 24 hr 09/26/22 09/26/22 09/26/22 10:35 10:51 10:51 WBC 5.1 RBC 4.62 Hgb 12.5 Hct 40.4 MCV 87.4 MCH 27.1 MCHC 30.9 L RDW 14.0 Plt Count 202 D MPV 10.8 Immature Gran % (Auto) 0.4 Neut % (Auto) 72.5 Lymph % (Auto) 14.3 L [place] % (Auto) 10.0 Eos % (Auto) 2.4 Baso % (Auto) 0.4 Lymph # (Auto) 0.7 L [place] # (Auto) 0.5 Eos # (Auto) 0.1 Baso # (Auto) 0.0 Abs Immat Gran (auto) 0.02 Absolute Neuts (auto) 3.7 Absolute Nucleated RBC 0.000 Nucleated RBC % (auto) 0.0 Smear Tech's Comments Sodium 142 Potassium 4.7 Chloride 106 Carbon Dioxide 28 Anion Gap 13 BUN 14 Creatinine 0.68 Estim Creat Clear Calc 67.1 Estimated GFR > 60 Random Glucose 86 Calcium 8.6 D Magnesium Total Bilirubin 0.6 Direct Bilirubin < 0.2 AST 32 H ALT 24 Alkaline Phosphatase 114 Troponin I High Sens B-Natriuretic Peptide Total Protein 6.5 Albumin 3.9 Respiratory Panel Henriquez Adenovirus (Rapid PCR) B.pert (TEM-PCR) B.parapertussis DNA PCR C. pneumoniae DNA (PCR) Coronavirus OC43 (PCR) Coronavirus HKU1 (PCR) Coronavirus 229E (PCR) Coronavirus NL63 (PCR) Human Metapneumovir PCR Influenza A (RT-PCR) Influenza Type A (PCR) NEGATIVE Influenza B (RT-PCR) Influenza Type B (PCR) NEGATIVE M. pneumoniae (PCR) Parainfluenza 1 (PCR) Parainfluenza 2 (PCR) Parainfluenza 3 (PCR) Parainfluenza 4 (PCR) RSV (PCR) RSV RNA Qual (PCR) NEGATIVE Entero/Rhino (PCR) SARS-CoV-2 RNA (RT-PCR) NEGATIVE 09/26/22 09/26/22 09/26/22 10:51 10:51 14:02 WBC RBC Hgb Hct MCV MCH MCHC RDW Plt Count MPV Immature Gran % (Auto) Neut % (Auto) Lymph % (Auto) [place] % (Auto) Eos % (Auto) Baso % (Auto) Lymph # (Auto) [place] # (Auto) Eos # (Auto) Baso # (Auto) Abs Immat Gran (auto) Absolute Neuts (auto) Absolute Nucleated RBC Nucleated RBC % (auto) Smear Tech's Comments Sodium Potassium Chloride Carbon Dioxide Anion Gap BUN Creatinine Estim Creat Clear Calc Estimated GFR Random Glucose Calcium Magnesium Total Bilirubin Direct Bilirubin AST ALT Alkaline Phosphatase Troponin I High Sens 4.4 B-Natriuretic Peptide 102 H Total Protein Albumin Respiratory Panel Henri[place] See Note Adenovirus (Rapid PCR) Not Detected B.pert (TEM-PCR) Not Detected B.parapertussis DNA PCR Not Detected C. pneumoniae DNA (PCR) Not Detected Coronavirus OC43 (PCR) Not Detected Coronavirus HKU1 (PCR) Not Detected Coronavirus 229E (PCR) Not Detected Coronavirus NL63 (PCR) Not Detected Human Metapneumovir PCR Detected A Influenza A (RT-PCR) Not Detected Influenza Type A (PCR) Influenza B (RT-PCR) Not Detected Influenza Type B (PCR) M. pneumoniae (PCR) Not Detected Parainfluenza 1 (PCR) Not Detected Parainfluenza 2 (PCR) Not Detected Parainfluenza 3 (PCR) Not Detected Parainfluenza 4 (PCR) Not Detected RSV (PCR) Not Detected RSV RNA Qual (PCR) Entero/Rhino (PCR) Not Detected SARS-CoV-2 RNA (RT-PCR) Not Detected 09/27/22 09/27/22 05:15 05:15 WBC 10.8 RBC 4.78 Hgb 12.8 Hct 41.6 MCV 87.0 MCH 26.8 L MCHC 30.8 L RDW 14.0 Plt Count 295 D MPV 12.1 Immature Gran % (Auto) 1.0 H Neut % (Auto) 91.2 H Lymph % (Auto) 4.7 L [place] % (Auto) 3.0 Eos % (Auto) 0.0 Baso % (Auto) 0.1 Lymph # (Auto) 0.5 L [place] # (Auto) 0.3 Eos # (Auto) 0.0 Baso # (Auto) 0.0 Abs Immat Gran (auto) 0.11 H Absolute Neuts (auto) 9.9 H Absolute Nucleated RBC 0.000 Nucleated RBC % (auto) 0.0 Smear Tech's Comments VERIFIED Sodium 142 Potassium 4.6 Chloride 106 Carbon Dioxide 24 Anion Gap 17 BUN 19 H Creatinine 0.78 Estim Creat Clear Calc 58.5 Estimated GFR > 60 Random Glucose 130 H Calcium 9.0 Magnesium 2.3 Total Bilirubin Direct Bilirubin AST ALT Alkaline Phosphatase Troponin I High Sens B-Natriuretic Peptide Total Protein Albumin Respiratory Panel [place] Adenovirus (Rapid PCR) B.pert (TEM-PCR) B.parapertussis DNA PCR C. pneumoniae DNA (PCR) Coronavirus OC43 (PCR) Coronavirus HKU1 (PCR) Coronavirus 229E (PCR) Coronavirus NL63 (PCR) Human Metapneumovir PCR Influenza A (RT-PCR) Influenza Type A (PCR) Influenza B (RT-PCR) Influenza Type B (PCR) M. pneumoniae (PCR) Parainfluenza 1 (PCR) Parainfluenza 2 (PCR) Parainfluenza 3 (PCR) Parainfluenza 4 (PCR) RSV (PCR) RSV RNA Qual (PCR) Entero/Rhino (PCR) SARS-CoV-2 RNA (RT-PCR) Discharge Plan Discharge Anticipated Discharge Date/Time: 09/27/22 08:54 Patient Disposition: Home, Self-Care Discharge Diagnosis: Acute Exacerbation of asthma Referrals: Milton Ackerman MD [Primary Care Provider] - 1 Week Discharge Medications: New prednisone 20 mg Tablet 40 mg PO DAILY Qty: 6 0RF Continued lubiprostone [Amitiza] 24 mcg capsule 24 mcg PO BID Qty: 60 1RF (DME) miscellaneous medical supply Misc 0 .Route Qty: 1 0RF Rx Instructions: Power Lift Chair - As directed - to use indefinatly cholecalciferol (vitamin D3) 25 mcg (1,000 unit) capsule 25 mcg PO DAILY 90 Days Qty: 90 3RF Flovent HFA 110 mcg/actuation HFA aerosol inhaler 1 puff inhalation BID 30 Days Qty: 12 5RF acetaminophen 650 mg tablet extended release 650 mg PO Q8H PRN (Reason: pain) 30 Days Qty: 90 3RF loratadine 10 mg tablet 10 mg PO DAILY PRN (Reason: allergy symptoms) 90 Days Qty: 90 1RF albuterol sulfate 90 mcg/actuation HFA aerosol inhaler 1 puff inhalation Q6H Qty: 8.5 3RF gabapentin 300 mg capsule 300 mg PO BID 30 Days Qty: 60 2RF senna 8.6 mg capsule 8.6 mg PO BEDTIME PRN (Reason: constipation) 90 Days Qty: 90 12RF candesartan 32 mg tablet 32 mg PO DAILY Qty: 90 1RF triamcinolone acetonide 0.1 % cream 1 appl topical BID 10 Days Qty: 30 1RF alendronate 70 mg tablet 70 mg PO MO calcium carbonate-vit D3-min 600 mg calcium- 200 unit tablet 1 tab PO DAILY zolpidem 10 mg tablet 5 mg PO BEDTIME PRN (Reason: sleep) (DME) Aerochamber MV Spacer See Rx Instructions .Route Qty: 1 0RF Rx Instructions: As directed atorvastatin 80 mg tablet 80 mg PO BEDTIME Qty: 90 1RF tramadol 50 mg tablet 50 mg PO BID PRN (Reason: pain) 30 Days Qty: 60 1RF Discharge Orders: Discharge Order (Routine); Ordered 09/27/22 Ordered By: Red Aguirre Diet: Advance to usual diet Activity on Discharge: As tolerated Stand Alone Forms: Patient Portal Discharge page Care Plan Goals: Full recovery Health Concerns: asthma, human metapneumovirus Plan of Treatment: Take Prednisone as directed, use inhalers as needed and follow up with your Doctor in a week, call for appointment Assessment: See above Patient Instructions: Viral Pneumonia (ED)
--- NOTE | 2022-09-27 09:29 | MHC.CM.PN ---
JONES DELIVERED PT HAS BEEN MEDICALLY CLEARED FOR DC HOME, NO SERVICES. LIVES WITH FAMILY. +COVID VAX X3. PCP DR. PIPER. FAMILY WILL TRANSPORT. RN AWARE.
[2022-09-27] MEDS: Benzonatate 100 MG CAPSULE PO (09:34)
[2022-09-27] MEDS: predniSONE 20 MG TABLET 40 MG PO (09:34)
[2022-09-27] MEDS: Triamcinolone Acet 0.1 % Cream 15 GM TUBE 1 APPL TOPICAL (09:35)
== END 2022-09-27 10:28 | disposition home or self-care (01) ==
LOC: HO.ED 12:09 → HO.EDOVER 13:46 → HO.S3 14:18
PROVIDERS: Physician Assistant; Admitting Provider Physician Assistant; Emergency Provider Emergency Medicine; PCP Internal Medicine; Visit Provider Internal Medicine
DX: J45.901 Unspecified asthma with (acute) exacerbation (principal); R06.02 Shortness of breath; Z20.828 Contact with and (suspected) exposure to other viral communicable diseases; Z20.822 Contact with and (suspected) exposure to COVID-19; I10 Essential (primary) hypertension; I48.0 Paroxysmal atrial fibrillation; E78.00 Pure hypercholesterolemia, unspecified; Z79.899 Other long term (current) drug therapy
CPT/HCPCS: 0241U; 36415; 71046; 80048; 80076; 83735; 83880; 84484; 85025; 87633; 93005; 94640; 96365; 96372; 96375; 96376; 99221; 99285; J1650; J2920; J2930; J3475

== ENCOUNTER 2022-10-30 09:15 | Outpatient (REF) | payer OTHER, MEDICAID, SELFPAY ==
[2022-10-30 10:22] LABS: Appearance Urine Clear; Color Urine Yellow; Glucose Urine UA Negative (Negative); Leukocyte Esterase Urine Small (1+) (Negative); Nitrite Urine Negative (Negative); PH 5.5 (5.0-9.0); UMIC TRIGGER UACC YES; Urine Blood Small (1+) (Negative); Urine Ketones Negative (Negative); Urine Protein Negative (Neg-Trace)
[2022-10-30 13:09] LABS: Bacteria Urine None Seen (None Seen); Hyaline Casts Urine 0-2 /LPF (0-2); RBC Urine 0-2 /HPF (0-2); Squamous Epithelial Cell Urine 0-2 /HPF (0-2); UACC Culture Trigger YES
== END 2022-10-30 09:16 | disposition home or self-care (01) ==
LOC: HO.LAB 09:15
PROVIDERS: PCP Internal Medicine; Visit Provider Internal Medicine
DX: I10 Essential (primary) hypertension (principal); R82.90 Unspecified abnormal findings in urine
CPT/HCPCS: 81001; 87086

== ENCOUNTER 2022-12-21 11:05 | Outpatient (REF) | payer OTHER, MEDICAID, SELFPAY ==
--- NOTE | ~2022-12-21 | MM_ITS ---
EXAMINATION: MM SCREENING DIGITAL BREAST TOMOSYNTHESIS, BILATERAL CLINICAL INFORMATION: Screening. Asymptomatic. The lifetime risk of breast cancer based on the Tyrer-Cuzick Model is 2%. COMPARISON: Mammography: 11/10/2021, 11/22/2016, 08/18/2015, 03/12/2014, 10/16/2012 TECHNIQUE: Digital breast tomosynthesis is performed in both the craniocaudal and mediolateral oblique views along with computer-aided detection (CAD). Synthesized 2D images are generated from the tomosynthesis. FINDINGS: There are scattered areas of fibroglandular density (ACR BI-RADS breast composition Category b). Parenchymal pattern is similar to prior studies. Left breast parenchymal pattern borders on heterogeneously dense. There are chronic asymmetric regional fibrocystic changes on the left. Small nodularity anterior right breast is also stable. There is no developing density or interval architectural abnormality. Scattered bilateral predominantly vascular calcifications are again present. The axilla are unremarkable. There is chronic mild bilateral nipple retraction. No significant changes from prior studies. MM/MM tomosynthesis screening BI IMPRESSION: -No mammographic evidence of malignancy. -No significant changes from prior studies. ASSESSMENT: BI-RADS 2: Benign RECOMMENDATION: Routine annual mammography screening. This patient's information was entered into a reminder system with a target due date for their next mammogram.
== END 2022-12-21 11:06 | disposition home or self-care (01) ==
LOC: HO.MAMMO 11:05
PROVIDERS: PCP Internal Medicine; Visit Provider Internal Medicine
DX: Z12.31 Encounter for screening mammogram for malignant neoplasm of breast (principal)
CPT/HCPCS: 77063; 77067

== ENCOUNTER 2023-02-20 11:36 | Outpatient (AMB) | payer OTHER, MEDICAID, SELFPAY ==
[2023-02-20 11:44] VITALS: BP 140/86; PULSE 78; O2SAT 97; BMI 35.9
--- NOTE | 2023-02-20 11:44 | A.OFFPC_ITS ---
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: No Allergies acetaminophen [From PERCOCET] Allergy (Intermediate, Verified 02/20/23 11:55) HIVES morphine [MORPHINE] Allergy (Intermediate, Verified 02/20/23 11:55) VOMITING Penicillins [PENICILLINS] Allergy (Mild, Verified 02/20/23 11:55) RASH oxaprozin [From Daypro] Allergy (Unknown, Verified 02/20/23 11:55) RASH oxycodone [From PERCOCET] Adverse Reaction (Intermediate, Verified 02/20/23 11:55) VOMITING AND DIZZINESS budesonide [Symbicort] Adverse Reaction (Unknown, Verified 02/20/23 11:55) nausea and vomiting Medication List - Last Reconciled 02/20/23 by ELHAM Villatoro acetaminophen ER 650 mg PO Q8H PRN 30 days albuterol sulfate 90 mcg/actuation 1 puff inhalation Q6H alendronate 70 mg PO QWEEK 3 months atorvastatin 80 mg PO BEDTIME 90 days benzonatate 100 mg PO TID PRN 10 days calcium carbonate-vit D3-min 600 mg calcium- 200 unit 1 tab PO DAILY candesartan 32 mg PO DAILY cholecalciferol (vitamin D3) 25 mcg PO DAILY 90 days fluticasone propionate 110 mcg/actuation (Flovent HFA) 2 puffs inhalation BID 30 days gabapentin 300 mg PO BID 30 days guaifenesin ER (Mucinex) 600 mg PO BID 10 days inhalational spacing device (Aerochamber MV spacer) As directed loratadine 10 mg PO DAILY PRN 90 days lubiprostone (Amitiza) 24 mcg PO BID miscellaneous medical supply Power Lift Chair - As directed - to use indefinatly sennosides (senna) 8.6 mg PO BEDTIME PRN 90 days tramadol 50 mg PO BID PRN 30 days triamcinolone acetonide 0.1% 1 appl topical BID 10 days zolpidem 10 mg PO BEDTIME PRN 30 days Tobacco use date assessed: 02/20/23 Fall risk assessment: No Falls in past year Last assessed Fall Risk: 02/20/23 Dental Screening Dental Screen Date: 02/20/23 Did you have a dental visit in the last 12 months?: Yes Did you have a dental problem in the last 6 months where you did not have access to dental care?: No HPI unbearable pain in feet HPI Details Patient is a 77-year-old female who presents today for the same day visit with blisters, wounds, scabs on both of her lower extremities right leg for 1 year and left leg for [address] Ackerman. Patient was recently treated with antibiotic for her wounds. Medical history significant for hypertension, hyperlipidemia, AFib, GERD, asthma among others. Patient was seen at [facility] Emergency Department 02/09/2023 due to the same issue. Patient reported that she previously had vascular procedure the right lower extremity for poor circulation. Patient denies fever chills, no shortness of breath or chest pain. Patient was given a referral to see vascular provider, although patient reports today that she needs referral from her PCP office. She has an upcoming appointment with vascular provider in [place] 02/27/2023. Patient also reports intermittent pain in her bilateral lower extremity distal aspect to her feet, she takes Tylenol with minimal improvement, reports she does not like to take her tramadol. Patient is a Swedish-speaking her [id number] was helping with interpretation. [facility] Medical History Allergic rhinitis Anxiety Asthma Benign essential hypertension Depression GERD without esophagitis Insomnia Obesity (BMI 30-39.9) Osteoarthritis Osteopenia PAF (paroxysmal atrial fibrillation) Paroxysmal atrial fibrillation Pure hypercholesterolemia Vitamin D deficiency Surgical History History of colonoscopy Family History Father CVD (cardiovascular disease) Stroke Mother Medical history unknown Social History Housing: Apartment Alcohol intake: never Patient Tobacco Use Status: Never used Tobacco e-Cigarette/Vaping Use: Never Used Second Hand Smoke Exposure: Yes service: No Current occupational status: disabled Cognitive needs: No Hearing needs: No Vision needs: Yes (glasses) Questionnaire Thrive Questionnaire Date Thrive assessed: 10/31/22 AUDIT C Alcohol Use Questionnaire (AUDIT-C) 1. How often do you have a drink containing alcohol?: Never 3. How often do you have six or more drinks on one occasion?: Never Total Score: 0 Score Reviewed/Action Taken: No FARIDEH-7 AMB Questionnaire FARIDEH-7 Date FARIDEH - 7 assessed: 10/31/22 Source: Developed by Drs. Abisai Peñaloza, Celina Simeon, Ayad Briceno and colleagues, with an educational elif from [employer]. Review of Systems Const Denies body aches, Denies chills, Denies fever(s) and Denies headache(s) Eyes Denies change in vision ENT Denies dizziness, Denies otalgia, Denies headache(s), Denies nasal discharge, Denies sinus pain and Denies sore throat Card Denies chest pain, Denies edema, Denies lightheadedness and Denies dyspnea Resp Denies cough, Denies dyspnea and Denies wheezing GI Denies abdominal pain Denies dysuria Musc Denies myalgias Skin/Breast Reports as per HPI, Reports lesions and Denies rash Neuro Denies dizziness and Denies headache(s) Aller/Immun Denies wheezing Physical exam (Primary Care) Vital Signs: Last Vital Signs Pulse 78 02/20/23 11:44 BP 140/86 H 02/20/23 11:44 Pulse Ox 97 02/20/23 11:44 Oxygen Delivery Method Room Air 02/20/23 11:44 BMI result Body Mass Index 35.9 Tobacco/Smoking Status: Tobacco use Status Tobacco use date assessed 02/20/23 02/20/23 11:51 Patient Tobacco Use Status Never used Tobacco 02/20/23 11:44 e-Cigarette/Vaping Use Never Used 02/20/23 11:44 Thrive Assessment: Date of Thrive Assessment Date Thrive assessed 10/31/22 02/20/23 11:44 Const General: cooperative and no acute distress Orientation/consciousness: patient oriented x3 HENMT Head: Yes normocephalic and Yes atraumatic Mouth: oropharynx normal and moist mucous membranes Throat: Yes posterior oropharynx normal Eyes General: appearance normal, both eyes and all related structures Neck Neck: Yes normal visual inspection and Yes full ROM Resp Effort & Inspection: normal respiratory effort and able to speak in complete sentences Auscultation: clear to auscultation bilaterally, no crackles, no rales, no rhonchi and no wheezes Cardio Rate: regular rate Rhythm: regular rhythm Heart sounds: S1 normal heart sound present and S2 normal heart sound present Peripheral pulses: dorsalis pedis present on the right diminished and on the left GI Auscultation: normal bowel sounds Skin Other: Left ankle lateral aspect with open wound [id number], no discharge noted Bilateral lower extremity distal aspect with multiple intact scabs, no open areas Neuro General: patient oriented x3 Gait exam (Neuro): Normal gait present Extrem General: Yes full ROM and No edema Assessment and Plan Assessment & Plan (1) Ulcer of left lower leg: Code(s): L97.929 - Non-pressure chronic ulcer of unspecified part of left lower leg with unspecified severity Plan: Left ankle lateral aspect with open wound [id number], no discharge noted Will treat with mupirocin topical b.i.d. for 14 days Wound care referral Vascular surgery referral (2) Ulcer of right lower leg: Code(s): L97.919 - Non-pressure chronic ulcer of unspecified part of right lower leg with unspecified severity Qualifiers: Non-pressure ulcer stage: unspecified non-pressure ulcer stage Qualified Code(s): L97.919 - Non-pressure chronic ulcer of unspecified part of right lower leg with unspecified severity Plan: Vascular surgery referral-keep appointment with vascular surgeon as scheduled, patient requested referral from PCP office Plan Keep appointment with PCP as scheduled or follow-up sooner as needed Orders: Referrals Vascular Surgery Referral L97.919 - Non-pressure chronic ulcer of unspecified part of right lower leg with unspecified severity, L97.929 - Non-pressure chronic ulcer of unspecified part of left lower leg with unspecified severity Wound Care Referral L97.929 - Non-pressure chronic ulcer of unspecified part of left lower leg with unspecified severity Medications: New mupirocin 2% 1 appl topical BID 14 days 22 grams 0RF L97.929 - Non-pressure chronic ulcer of unspecified part of left lower leg with unspecified severity Coding Level of Care Code Est Pt Level 3 (62646) Diagnoses Ulcer of left lower leg L97.929 Ulcer of right lower leg L97.919 Non-pressure ulcer stage: unspecified non-pressure ulcer stage
== END 2023-02-20 13:00 | disposition home or self-care (01) ==
PROVIDERS: PCP Internal Medicine; Visit Provider Nurse Practitioner Family
DX: L97.929 Non-pressure chronic ulcer of unspecified part of left lower leg with unspecified severity (principal); L97.919 Non-pressure chronic ulcer of unspecified part of right lower leg with unspecified severity
CPT/HCPCS: 99213

== ENCOUNTER 2023-03-03 20:18 | Emergency (ER) | payer OTHER, SELFPAY ==
--- NOTE | ~2023-03-03 | XR_ITS ---
EXAMINATION: XR CHEST CLINICAL INFORMATION: Chest pain. COMPARISON: Chest done on 09/26/2022. TECHNIQUE: Frontal view of the chest was obtained. FINDINGS: Hyperinflated lung field and superimposed linear airspace disease at left mid to lower lung base, appears similar to prior study. No new focal airspace disease. The cardiomediastinal silhouette is within normal limit. No evidence of any pleural effusion or pneumothorax. XR/XR chest 1V IMPRESSION: No radiographic evidence of acute cardiopulmonary disease, unchanged since 09/26/2022. Persistent stable hyperinflated lung field and stable presumed pleuroparenchymal scar at left mid to inferior lung field.
--- NOTE | 2023-03-03 20:25 | ECG_ITS ---
Test Reason : cp Blood Pressure : / mmHG Vent. Rate : 072 BPM Atrial Rate : 072 BPM P-R Int : 176 ms QRS Dur : 078 ms QT Int : 406 ms P-R-T Axes : 081 001 061 degrees QTc Int : 444 ms Normal sinus rhythm Nonspecific T wave abnormality Abnormal ECG When compared with ECG of 26-SEP-2022 09:23, Premature ventricular complexes are no longer Present Referred By: Ethan Garza Electronically Signed By:BENITA STEVENS
[2023-03-03 20:40] VITALS: BP 177/75; PULSE 75; RESP 18; TEMP 37.3; O2SAT 96; BMI 34.0
[2023-03-03 20:41] LABS: MANUAL DIFF FLAG NO
[2023-03-03 20:43] LABS: Basophils Percent Auto 0.5 % (0-2); Eosinophils Absolute Auto 0.2 X10*3/uL (0.0-0.4); Eosinophils Percent Auto 2.5 % (0-4); Hematocrit 40.5 % (37.0-47.0); Hemoglobin 12.6 g/dl (12.0-16.0); Imm Gran Abs Auto 0.02 X10*3/uL (0.00-0.03); Imm Gran Pct Auto 0.2 % (0.0-0.4); Lymphocytes Absolute Auto 1.9 X10*3/uL (1.2-4.9); Lymphocytes Percent Auto 22.1 % (20-40); Mean Corpuscular HGB Conc 31.1 g/dl (31.0-35.0); Mean Corpuscular Hemoglobin 26.9 pg (27.0-33.0); Mean Corpuscular Volume 86.4 fL (80.0-98.0); Mean Platelet Volume 10.6 fL (9.4-12.3); Monocytes Absolute Auto 0.7 X10*3/uL (0.1-1.2); Monocytes Percent Auto 7.4 % (2-11); Neutrophils Absolute Auto 5.9 x10*3/uL (2.0-8.3); Neutrophils Percent Auto 67.3 % (45-73); Platelet Count 318 X10*3/uL (160-400); Red Blood Count 4.69 X10*6/uL (4.20-5.50); Red Cell Distribution Width 13.9 % (11.0-16.0); White Blood Count 8.8 X10*3/uL (4.8-10.8)
--- NOTE | 2023-03-03 20:48 | ED.CHESTPAIN ---
HPI - Chest Pain General Chief Complaint: Chest Pain Stated Complaint: Chest Pain/Foot pain/trouble urinating Time Seen by Provider: 03/03/23 22:41 Source: patient, family and spanish interpreter/translator Mode of arrival: ambulatory Limitations: no limitations History of Present Illness HPI narrative: 77-year-old female came in for evaluation of ulcers in her lower extremities bilaterally causing burning sensation, started about a month ago, patient has an appointment with the wound clinic next week for evaluation of those ulcers, patient was also referred by PCP to a vascular surgeon. Patient declined any trauma or injury to lower extremities. Patient also complained of chest pain only when she have the burning sensation in her feet, pain lasts for few seconds poorly characterized by the patient as diffuse chest pain with no radiation no SOB, no fever, no chills. Related Data Home Medications Medication Instructions Recorded Confirmed calcium carb-vit D3-minerals 600 1 tab PO DAILY 09/26/22 02/20/23 mg calcium-200 unit tablet Previous Rx's Medication Instructions Recorded inhalational spacing device #1 ea 04/07/21 (Aerochamber MV spacer) lubiprostone 24 mcg capsule 24 mcg PO BID #60 caps 07/10/21 (Amitiza) miscellaneous medical supply #1 ea 08/15/21 loratadine 10 mg tablet 10 mg PO DAILY PRN allergy 05/10/22 symptoms 90 days #90 tabs sennosides 8.6 mg capsule (senna) 8.6 mg PO BEDTIME PRN constipation 07/23/22 90 days #90 caps candesartan 32 mg tablet 32 mg PO DAILY #90 tabs 09/03/22 triamcinolone acetonide 0.1 % 1 appl topical BID 10 days #30 09/06/22 topical cream grams guaifenesin 600 mg tablet, 600 mg PO BID 10 days #20 tabs 10/04/22 extended release 12 hr (Mucinex) atorvastatin 80 mg tablet 80 mg PO BEDTIME 90 days #90 tabs 10/31/22 fluticasone propionate 110 2 puff inhalation BID 30 days #12 10/31/22 mcg/actuation HFA aerosol inhaler grams (Flovent HFA) cholecalciferol (vitamin D3) 25 25 mcg PO DAILY 90 days #90 caps 11/09/22 mcg (1,000 unit) capsule benzonatate 100 mg capsule 100 mg PO TID PRN cough 10 days 11/20/22 #30 caps acetaminophen 650 mg 650 mg PO Q8H PRN pain 30 days #90 12/31/22 tablet,extended release tabs albuterol sulfate 90 mcg/actuation 1 puff inhalation Q6H #8.5 ea 12/31/22 aerosol inhaler alendronate 70 mg tablet 70 mg PO QWEEK 3 months #13 tabs 12/31/22 gabapentin 300 mg capsule 300 mg PO BID 30 days #60 caps 12/31/22 zolpidem 10 mg tablet 10 mg PO BEDTIME PRN sleep 30 days 02/04/23 #30 tabs mupirocin 2 % topical ointment 1 appl topical BID 14 days #22 02/20/23 grams tramadol 50 mg tablet 50 mg PO BID PRN pain 30 days #60 02/27/23 tabs doxycycline hyclate 100 mg tablet 100 mg PO BID #20 tabs 03/03/23 ibuprofen 600 mg tablet 600 mg PO Q8H PRN pain #20 tabs 03/03/23 mupirocin 2 % topical ointment 1 appl topical TID #22 grams 03/03/23 Allergies Allergy/AdvReac Type Severity Reaction Status Date / Time morphine [MORPHINE] Allergy Intermediate VOMITING Verified 02/20/23 11:55 Penicillins [PENICILLINS] Allergy Mild RASH Verified 02/20/23 11:55 oxaprozin [From Daypro] Allergy Unknown RASH Verified 02/20/23 11:55 budesonide [Symbicort] AdvReac Unknown nausea and Verified 02/20/23 11:55 vomiting Review of Systems Review of Systems: All other systems are reviewed and are negative Constitutional: Reports as per HPI and Reports no additional constitutional complaints Eyes: Reports as per HPI and Reports no additional eye complaints Reports system reviewed and no additional complaints, except as documented Cardiovascular: Reports as per HPI and Reports no additional cardiovascular complaints Respiratory: Reports as per HPI and Reports no additional respiratory complaints Gastrointestinal: Reports as per HPI and Reports no additional gastrointestinal complaints Genitourinary: Reports no additional female genitourinary complaints Musculoskeletal: Reports no additional musculoskeletal complaints Skin/Breast: Reports system reviewed and no additional complaints, except as docu Psychiatric: Reports no additional psychiatric complaints Endocrine: Reports no additional endocrine complaints Hematologic/Lymphatic: Reports no additional hematologic/lymphatic complaints Allergic/Immunologic: Reports no additional allergic/immunologic complaints Reports system reviewed and no additional complaints, except as documented and Reports Abnormal speech present [facility] Past Medical History Medical History Allergic rhinitis Anxiety Asthma Benign essential hypertension Depression GERD without esophagitis Insomnia Obesity (BMI 30-39.9) Osteoarthritis Osteopenia PAF (paroxysmal atrial fibrillation) Paroxysmal atrial fibrillation Pure hypercholesterolemia Vitamin D deficiency Surgical History History of colonoscopy Family History Family History Father CVD (cardiovascular disease) Stroke Mother Medical history unknown Social History Social History Housing: Apartment Alcohol intake: never Patient Tobacco Use Status: Never used Tobacco Smoked in Last 30 Days: No e-Cigarette/Vaping Use: Never Used Second Hand Smoke Exposure: Yes Use of substances other than those prescribed or required for medical reasons: No Advance Directives: No Advance Directives Information Provided: Yes service: No Current occupational status: disabled Cognitive needs: No Hearing needs: No Vision needs: Yes (glasses) Physical Exam Vital Signs: Vital Signs: Last Vital Signs Temp 99.1 F 03/03/23 20:40 Pulse 70 03/03/23 22:36 Resp 18 03/03/23 22:36 BP 165/78 H 03/03/23 22:36 Pulse Ox 97 03/03/23 22:36 O2 Del Method Room Air 03/03/23 22:36 BMI result Body Mass Index 34.0 Vital signs have been reviewed as appeared to be correct. Blood pressure normal. Heart rate normal. Respiration rate normal. Temperature normal. Oxygen saturation normal. Appearance: Alert. Oriented X3. No acute distress. Head: Normal external exam. Normocephalic. Atraumatic. No Carl[place] signs noted. No raccoon eyes noted Eyes: PERRLA. EOMI. Conjunctiva and sclera normal. Eyelids normal. ENT: TM's Normal. Pharynx normal. Uvula midline. Moist mucous membranes. No trismus noted. No drooling noted. No muffled voice noted. Neck: Normal inspection. Neck supple. FROM. No adenopathy. Thyroid Normal. No meningeal signs. No neck mass noted. CVS: Normal heart rate and rhythm. Heart sound normal. No murmurs noted. Pulses normal throughout. Respiratory: No respiratory distress. Painless inspiration. Breath sounds normal. No wheezes/rales/rhonchi noted. Chest nontender. No accessory muscle usage noted or decreased air movement noted. Abdomen: Soft and nontender. Bowel sounds normal in all 4 quadrants. No distention noted. No organomegaly noted. No visible injury noted. Back: No CVA tenderness. Full range of motion noted. Skin: Skin warm and dry. Normal skin color. Normal skin turgor. No rashes/lesions/lacerations noted. Extremities: 3 x 3 cm ulcerative area on the medial aspect of the right ankle, multiple smaller ulcerative area on the right left ankle, no discharge, no fluctuation. Neuro: Oriented X 3. Cranial nerve exam: II-XII are grossly intact No motor deficit. No sensory deficit. Reflexes normal. Course Course Course Narrative: RME: 77 yold female presents to the ED For chest pain. patient secondary compalints is chronic ulcers on both ankkles. Venous ulcers do not appear infected. labs, EKG, and chest xray ordered Reevaluation(s) Reevaluation #1: 77-year-old female with bilateral ulcers on both legs appear to be vascular related, ulcers are surrounded by cellulitic areas, will start the patient on doxycycline and mupirocin ointment with NSAIDs. Follow-up with PCP recommending to follow-up with vascular and Wound [facility]. Time: 22:58 Medications Administered Discontinued Medications Generic Name Dose Route Start Last Admin Trade Name Freq PRN Reason Stop Dose Admin Doxycycline Monohydrate 100 mg 03/03/23 23:06 03/03/23 23:28 Doxycycline Monohydrate 100 Mg Capsule PO 03/03/23 23:07 100 mg ONCE ONE Administration Oxycodone HCl 5 mg 03/03/23 23:06 03/03/23 23:28 Oxycodone Hcl Immed Release 5 Mg Tablet PO 03/03/23 23:07 5 mg ONCE ONE Administration Medical Decision Making Differential Diagnosis Differential Diagnoses: The differential diagnosis associated with the presentation includes (Infected wound, vascular ulcers, sepsis, electrolyte abnormality, severe anemia.) Admission/Observation Consideration of admission/observation: Escalation of care including admission/observation considered Lab Data MDM Lab Attestation statement: I reviewed the patient's lab results. 03/03/23 20:39 03/03/23 20:39 Labs: Lab Results 03/03/23 03/03/23 03/03/23 Range/Units 20:36 20:37 20:37 WBC (4.8-10.8) X10*3/uL RBC (4.20-5.50) X10*6/uL Hgb (12.0-16.0) g/dl Hct (37.0-47.0) % MCV (80.0-98.0) fL MCH (27.0-33.0) pg MCHC (31.0-35.0) g/dl RDW (11.0-16.0) % Plt Count (160-400) X10*3/uL MPV (9.4-12.3) fL Immature Gran % (Auto) (0.0-0.4) % Neut % (Auto) (45-73) % Lymph % (Auto) (20-40) % Moody % (Auto) (2-11) % Eos % (Auto) (0-4) % Baso % (Auto) (0-2) % Lymph # (Auto) (1.2-4.9) X10*3/uL Moody # (Auto) (0.1-1.2) X10*3/uL Eos # (Auto) (0.0-0.4) X10*3/uL Baso # (Auto) (0.0-0.2) X10*3/uL Abs Immat Gran (auto) (0.00-0.03) X10*3/uL Absolute Neuts (auto) (2.0-8.3) x10*3/uL Absolute Nucleated RBC (0.0-0.012) X10*3/uL Nucleated RBC % (auto) (0.0-0.2) /100WBC PT 10.5 L (11.1-13.3) SEC INR 0.9 (0.9-1.1) APTT 33.0 (26.0-36.4) SEC Sodium (135-145) mmol/L Potassium (3.3-5.1) mmol/L Chloride (96-108) mmol/L Carbon Dioxide (22-29) mmol/L Anion Gap (12-20) BUN (9-16) mg/dL Creatinine (0.5-1.4) mg/dL Estim Creat Clear Calc Estimated GFR Random Glucose (60-115) mg/dL Calcium (8.4-10.2) mg/dL Total Bilirubin (0.0-1.0) mg/dL AST (5-31) U/L ALT (0-31) U/L Alkaline Phosphatase (39-117) U/L Troponin I High Sens < 2.7 (<3.5-17.0) ng/L B-Natriuretic Peptide 37 (<100) pg/mL Total Protein (6.5-8.0) g/dL Albumin (3.5-5.0) g/dL 03/03/23 03/03/23 Range/Units 20:39 20:39 WBC 8.8 (4.8-10.8) X10*3/uL RBC 4.69 (4.20-5.50) X10*6/uL Hgb 12.6 (12.0-16.0) g/dl Hct 40.5 (37.0-47.0) % MCV 86.4 (80.0-98.0) fL MCH 26.9 L (27.0-33.0) pg MCHC 31.1 (31.0-35.0) g/dl RDW 13.9 (11.0-16.0) % Plt Count 318 (160-400) X10*3/uL MPV 10.6 (9.4-12.3) fL Immature Gran % (Auto) 0.2 (0.0-0.4) % Neut % (Auto) 67.3 (45-73) % Lymph % (Auto) 22.1 (20-40) % Moody % (Auto) 7.4 (2-11) % Eos % (Auto) 2.5 (0-4) % Baso % (Auto) 0.5 (0-2) % Lymph # (Auto) 1.9 (1.2-4.9) X10*3/uL Moody # (Auto) 0.7 (0.1-1.2) X10*3/uL Eos # (Auto) 0.2 (0.0-0.4) X10*3/uL Baso # (Auto) 0.0 (0.0-0.2) X10*3/uL Abs Immat Gran (auto) 0.02 (0.00-0.03) X10*3/uL Absolute Neuts (auto) 5.9 (2.0-8.3) x10*3/uL Absolute Nucleated RBC 0.000 (0.0-0.012) X10*3/uL Nucleated RBC % (auto) 0.0 (0.0-0.2) /100WBC PT (11.1-13.3) SEC INR (0.9-1.1) APTT (26.0-36.4) SEC Sodium 143 (135-145) mmol/L Potassium 4.6 (3.3-5.1) mmol/L Chloride 107 (96-108) mmol/L Carbon Dioxide 26 (22-29) mmol/L Anion Gap 15 (12-20) BUN 18 H (9-16) mg/dL Creatinine 0.80 (0.5-1.4) mg/dL Estim Creat Clear Calc 57.0 Estimated GFR > 60 Random Glucose 92 (60-115) mg/dL Calcium 9.8 D (8.4-10.2) mg/dL Total Bilirubin 0.4 (0.0-1.0) mg/dL AST 22 (5-31) U/L ALT 16 (0-31) U/L Alkaline Phosphatase 102 (39-117) U/L Troponin I High Sens (<3.5-17.0) ng/L B-Natriuretic Peptide (<100) pg/mL Total Protein 7.2 (6.5-8.0) g/dL Albumin 4.2 (3.5-5.0) g/dL Independent Interpretation I performed an independent interpretation of an: EKG (Normal sinus rhythm at 72 beats per minutes, left axis deviation, normal intervals, no change from previous EKG.) and Plain X-Ray (Chest: No acute intrathoracic pathology) Radiology Impression Discussion of test interpretation with radiology: I have reviewed the radiologist's reading. Discharge Plan Discharge Clinical Impression: Non-cardiac chest pain, Leg ulcer Patient Disposition: Home, Self-Care Instructions: Wound Healing and Your Diet (ED), Noncardiac Chest Pain (ED) Prescriptions: New doxycycline hyclate 100 mg tablet 100 mg PO BID Qty: 20 0RF mupirocin 2 % ointment 1 appl topical TID Qty: 22 0RF ibuprofen 600 mg tablet 600 mg PO Q8H PRN (Reason: pain) Qty: 20 0RF No Action lubiprostone [Amitiza] 24 mcg capsule 24 mcg PO BID Qty: 60 1RF (DME) miscellaneous medical supply Misc 0 .Route Qty: 1 0RF Rx Instructions: Power Lift Chair - As directed - to use indefinatly loratadine 10 mg tablet 10 mg PO DAILY PRN (Reason: allergy symptoms) 90 Days Qty: 90 1RF senna 8.6 mg capsule 8.6 mg PO BEDTIME PRN (Reason: constipation) 90 Days Qty: 90 12RF candesartan 32 mg tablet 32 mg PO DAILY Qty: 90 1RF triamcinolone acetonide 0.1 % cream 1 appl topical BID 10 Days Qty: 30 1RF cholecalciferol (vitamin D3) 25 mcg (1,000 unit) capsule 25 mcg PO DAILY 90 Days Qty: 90 3RF benzonatate 100 mg capsule 100 mg PO TID PRN (Reason: cough) 10 Days Qty: 30 1RF alendronate 70 mg tablet 70 mg PO QWEEK 90 Days Qty: 13 1RF albuterol sulfate 90 mcg/actuation HFA aerosol inhaler 1 puff inhalation Q6H Qty: 8.5 3RF gabapentin 300 mg capsule 300 mg PO BID 30 Days Qty: 60 2RF acetaminophen 650 mg tablet extended release 650 mg PO Q8H PRN (Reason: pain) 30 Days Qty: 90 3RF zolpidem 10 mg tablet 10 mg PO BEDTIME PRN (Reason: sleep) 30 Days Qty: 30 2RF tramadol 50 mg tablet 50 mg PO BID PRN (Reason: pain) 30 Days Qty: 60 0RF calcium carbonate-vit D3-min 600 mg calcium- 200 unit tablet 1 tab PO DAILY (DME) Aerochamber MV Spacer See Rx Instructions .Route Qty: 1 0RF Rx Instructions: As directed fluticasone propionate [Flovent HFA] 110 mcg/actuation HFA aerosol inhaler 2 puff inhalation BID 30 Days Qty: 12 5RF atorvastatin 80 mg tablet 80 mg PO BEDTIME 90 Days Qty: 90 1RF guaifenesin [Mucinex] 600 mg tablet extended release 12hr 600 mg PO BID 10 Days Qty: 20 0RF mupirocin 2 % ointment 1 appl topical BID 14 Days Qty: 22 0RF Referrals: Milton Ackerman MD [Primary Care Provider] - Orion Rees MD [Physician] - Interventions: ED Discharge Assessment Last Done: 03/03/23 23:33 Discharge Date/Time: 03/03/23 23:34
[2023-03-03 20:56] LABS: INTERNATIONAL NORM RATIO 0.9 (0.9-1.1); Prothrombin Time 10.5 SEC (11.1-13.3)
[2023-03-03 21:00] LABS: Alanine Aminotransferase 16 U/L (0-31); Albumin Level 4.2 g/dL (3.5-5.0); Alkaline Phosphatase 102 U/L (39-117); Anion Gap 15 (12-20); Aspartate Amino Transferase 22 U/L (5-31); Bilirubin Total 0.4 mg/dL (0.0-1.0); Blood Urea Nitrogen 18 mg/dL (9-16); Calcium 9.8 mg/dL (8.4-10.2); Carbon Dioxide 26 mmol/L (22-29); Chloride 107 mmol/L (96-108); Estimated Glomerular Filt Rate > 60; Glucose Random 92 mg/dL (60-115); Potassium 4.6 mmol/L (3.3-5.1); Sodium 143 mmol/L (135-145); Total Protein 7.2 g/dL (6.5-8.0)
[2023-03-03 21:22] LABS: B Type Natriuretic Peptide 37 pg/mL (<100)
[2023-03-03 21:37] LABS: Troponin-I High Sensitivity < 2.7 ng/L (<3.5-17.0)
[2023-03-03 22:36] VITALS: BP 165/78; PULSE 70; RESP 18; O2SAT 97
--- NOTE | 2023-03-03 22:50 | PC.NURSE ---
no iv established and no blood cultures per
[2023-03-03] MEDS: oxyCODONE HCl Immed Release 5 MG TABLET PO (23:28)
[2023-03-03] MEDS: Doxycycline Monohydrate 100 MG CAPSULE PO (23:28)
== END 2023-03-03 23:34 | disposition home or self-care (01) ==
PROVIDERS: Physician Assistant; Emergency Provider Emergency Medicine; PCP Internal Medicine
DX: R07.89 Other chest pain (principal); R33.9 Retention of urine, unspecified; L97.929 Non-pressure chronic ulcer of unspecified part of left lower leg with unspecified severity; L97.919 Non-pressure chronic ulcer of unspecified part of right lower leg with unspecified severity; R06.02 Shortness of breath; Z79.899 Other long term (current) drug therapy
CPT/HCPCS: 36415; 71045; 80053; 83880; 84484; 85025; 85610; 85730; 93005; 99284; 99285

== ENCOUNTER 2023-03-05 09:39 | Outpatient (AMB) | payer OTHER, MEDICAID, SELFPAY ==
--- NOTE | 2023-03-05 09:59 | A.OFFPC_ITS ---
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 Accompanied by: Son Allergies morphine [MORPHINE] Allergy (Intermediate, Verified 03/05/23 12:31) VOMITING Penicillins [PENICILLINS] Allergy (Mild, Verified 03/05/23 12:31) RASH oxaprozin [From Daypro] Allergy (Unknown, Verified 03/05/23 12:31) RASH budesonide [Symbicort] Adverse Reaction (Unknown, Verified 03/05/23 12:31) nausea and vomiting Medication List - Last Reconciled 03/05/23 by Milton Ackerman MD acetaminophen ER 650 mg PO Q8H PRN 30 days albuterol sulfate 90 mcg/actuation 1 puff inhalation Q6H alendronate 70 mg PO QWEEK 3 months atorvastatin 80 mg PO BEDTIME 90 days benzonatate 100 mg PO TID PRN 10 days calcium carbonate-vit D3-min 600 mg calcium- 200 unit 1 tab PO DAILY candesartan 32 mg PO DAILY cholecalciferol (vitamin D3) 25 mcg PO DAILY 90 days doxycycline hyclate 100 mg PO BID fluticasone propionate 110 mcg/actuation (Flovent HFA) 2 puffs inhalation BID 30 days gabapentin 300 mg PO BID 30 days guaifenesin ER (Mucinex) 600 mg PO BID 10 days ibuprofen 600 mg PO Q8H PRN inhalational spacing device (Aerochamber MV spacer) As directed loratadine 10 mg PO DAILY PRN 90 days lubiprostone (Amitiza) 24 mcg PO BID [employer] Power Lift Chair - As directed - to use indefinatly mupirocin 2% 1 appl topical TID mupirocin 2% 1 appl topical BID 14 days sennosides (senna) 8.6 mg PO BEDTIME PRN 90 days tramadol 50 mg PO BID PRN 30 days triamcinolone acetonide 0.1% 1 appl topical BID 10 days zolpidem 10 mg PO BEDTIME PRN 30 days Tobacco use date assessed: 03/05/23 Fall risk assessment: No Falls in past year Last assessed Fall Risk: 03/05/23 Dental Screening Dental Screen Date: 03/05/23 Did you have a dental visit in the last 12 months?: No Did you have a dental problem in the last 6 months where you did not have access to dental care?: No Was dental information given to patient?: No HPI [facility] [place] 03/03 leg pain HPI Details Patient comes in today for her HDF follow up visit She went to the ER a couple of days ago for increasing pain over the ulcers on her lower extremities, which she's had for a while now Labs and work ups done at the ER came out normal and she was discharged home on oral Doxycycline 100 mg BID x 10 days - is currently still on he Abx She is now also following up with the wound clinic for her lower extremity ulcers and her next appointment with them is in 2 days on 03/07/23 States that she was contacted by the vascular surgery practice in [place] that she was recently referred to (at her request) and was advised that she should see a specialist based in [place] instead due to insurance requirements She is therefore now requesting for a referral to see vascular surgery at [facility] States that she is still experiencing some pain over the ulcers on her legs, which are still open and a couple of them appear to have a slight oozing but do not appear infected She denies any fever, headaches or dizziness Denies any chest pains, no increased SOB No nausea/vomiting, no abdominal pain but states that her stomach feels bloated at times as she has been constipated lately and her Senna Rx is not helping Would like to get Rx for something else at this time to help regulate her bowel movements better Other that her labs done at the ER a couple of days ago, she has not had any of her follow up labs done lately [facility] Medical History (Updated 03/06/23 @ 12:45 by Milton Ackerman MD) Allergic rhinitis Anxiety Asthma Benign essential hypertension Constipation Depression GERD without esophagitis Insomnia Obesity (BMI 30-39.9) Osteoarthritis Osteopenia Osteoporosis PAF (paroxysmal atrial fibrillation) Paroxysmal atrial fibrillation Pure hypercholesterolemia Vitamin D deficiency Surgical History History of colonoscopy Family History Father CVD (cardiovascular disease) Stroke Mother Medical history unknown Social History Housing: Apartment Alcohol intake: never Patient Tobacco Use Status: Never used Tobacco e-Cigarette/Vaping Use: Never Used Second Hand Smoke Exposure: Yes service: No Current occupational status: disabled Cognitive needs: No Hearing needs: No Vision needs: Yes (glasses) Questionnaire PHQ-9 Over the last 2 weeks, how often have you been bothered by any of the following problems? 1. Little interest or pleasure in doing things: not at all 2. Feeling down, depressed, or hopeless: several days 3. Trouble falling or staying asleep, or sleeping too much: more than half the days 4. Feeling tired or having little energy: nearly every day 5. Poor appetite or overeating: not at all 6. Feeling bad about yourself - or that you are a failure or have let yourself or your family down: not at all 7. Trouble concentrating on things, such as reading the newspaper or watching television: not at all 8. Moving or speaking so slowly that other people could have noticed. Or the opposite - being so fidgety or restless that you have been moving around a lot more than usual: several days 9. Thoughts that you would be better off or of hurting yourself in some way: not at all Total score: 7 Depression Screening Interpretation: Positive Depression Screening Follow-up: Existing condition and In treatment 77100 - PHQ-9 Billing: Yes Source: Developed by Drs. Abisai Peñaloza, Celina Simeon, Ayad Briceno and colleagues, with an educational elif from [employer]. Thrive Questionnaire Date Thrive assessed: 03/05/23 I am a: Patient What is your living situation today?: I have a steady place to live Within the past 12 months, did the food you bought not last and you didn't have the money to get more?: Never true Within the past 12 months, did you worry whether your food would run out before you got money to buy more?: Never true Do you have trouble paying for medicines?: No Do you have trouble getting transportation to medical appointments?: No Do you have trouble paying your heating and electricity bill?: No Do you have trouble taking care of your child, family member or friend?: No Do you have trouble with day-to-day activities such as bathing, preparing meals, shopping, managing finances, etc.?: No Are you currently unemployed and looking for a job?: No Are you interested in more education?: No Please select the resources that you would like help with: None Currently or been in a relationship where the following occur: no concerns reported AUDIT C Alcohol Use Questionnaire (AUDIT-C) 1. How often do you have a drink containing alcohol?: Never 3. How often do you have six or more drinks on one occasion?: Never Total Score: 0 Score Reviewed/Action Taken: Yes FARIDEH-7 AMB Questionnaire FARIDEH-7 Date FARIDEH - 7 assessed: 03/05/23 Feeling nervous, anxious, or on edge: 0 = Not at all Not being able to stop or control worryin = Not at all Worrying too much about different things: 0 = Not at all Trouble relaxin = Not at all Being so restless that it is hard to sit still: 0 = Not at all Becoming easily annoyed or irritable: 0 = Not at all Feeling afraid as if something awful might happen: 0 = Not at all Total FARIDEH-7 score (0-4 normal; 5-9 mild; 10-14 moderate; 15-21 severe): 0 Source: Developed by Drs. Abisai Peñaloza, Celina Simeon, Ayad Briceno and colleagues, with an educational elif from [employer]. Review of Systems Const Denies chills, Reports fatigue, Denies fever(s) and Denies headache(s) ENT Denies dysphagia, Denies dizziness, Denies otalgia, Denies headache(s), Denies odynophagia and Denies sore throat Card Denies chest pain, Denies palpitations and Reports dyspnea on exertion (mild) Resp Denies chest congestion, Denies cough, Reports dyspnea on exertion (mild) and Denies wheezing GI Denies abdominal pain, Reports bloating (at times), Reports constipation (increasing lately), Denies dysphagia, Denies heartburn, Denies diarrhea, Denies nausea, Denies odynophagia and Denies vomiting Denies difficulty voiding, Denies nocturia and Denies dysuria Musc Reports arthralgias (involving multiple joints, especially her knees) Skin/Breast Reports skin ulcer ((+) multiple painful sores/ulcers on both lower legs distally) Neuro Denies dizziness and Denies headache(s) Endo Reports fatigue and Denies palpitations Aller/Immun Denies wheezing Physical exam (Primary Care) Vital Signs: Last Vital Signs Pulse 72 03/05/23 10:00 BP 130/82 03/05/23 10:00 Pulse Ox 96 03/05/23 10:00 Oxygen Delivery Method Room Air 03/05/23 10:00 BMI result Body Mass Index 35.4 Tobacco/Smoking Status: Tobacco use Status Tobacco use date assessed 03/05/23 03/05/23 10:06 Patient Tobacco Use Status Never used Tobacco 03/05/23 10:06 e-Cigarette/Vaping Use Never Used 03/05/23 10:06 PHQ-9: PHQ-9 Score PHQ-9: Total score 7 03/06/23 12:29 Depression Screening Interpretation: Positive Depression Screening Follow-up: Existing condition and In treatment Thrive Assessment: Date of Thrive Assessment Date Thrive assessed 03/05/23 03/05/23 10:06 Currently or been in a relationship where the following occur: no concerns reported Const General: no acute distress and alert HENMT Ears: TM's normal bilaterally and EAC's normal Throat: Yes posterior oropharynx normal and Yes tonsils normal (no TP congestion) Neck Neck: Yes no lymphadenopathy and Yes supple Resp Auscultation: clear to auscultation bilaterally, no rales, no rhonchi, no wheezes and diminished lung sounds (slightly) bilateral Cardio Rate: regular rate Rhythm: regular rhythm Heart sounds: no murmurs GI Palpation (GI): Soft to palpation and nontender Auscultation: normal bowel sounds Skin Other: (+) multiple superficial ulcers noted over the distal half of both lower legs Extrem General: Yes no clubbing, cyanosis or edema Results Reviewed Results Reviewed: Laboratory Tests 03/03/23 03/03/23 03/03/23 20:37 20:39 20:39 WBC 8.8 Hgb 12.6 Hct 40.5 Plt Count 318 Sodium 143 Potassium 4.6 Creatinine 0.80 Estimated GFR > 60 Random Glucose 92 Calcium 9.8 D AST 22 ALT 16 B-Natriuretic Peptide 37 Assessment and Plan Assessment & Plan (1) Venous stasis ulcers of both lower extremities: Code(s): I83.019 - Varicose veins of right lower extremity with ulcer of unspecified site; I83.029 - Varicose veins of left lower extremity with ulcer of unspecified site; L97.919 - Non-pressure chronic ulcer of unspecified part of right lower leg with unspecified severity; L97.929 - Non-pressure chronic ulcer of unspecified part of left lower leg with unspecified severity Plan: Continue Doxycycline 100 mg BID and instructed to continue to keep her legs elevated as often as she can Follow up with the wound clinic as scheduled - patient has appt scheduled on 03/07/2023 Per request, will refer her to vascular surgery at [facility] for further evaluation and management (2) Pure hypercholesterolemia: Code(s): E78.00 - Pure hypercholesterolemia, unspecified Plan: Her cholesterol levels from back in July 2022 were at goal; no other recent fasting lipids were done since Reinforced low cholesterol diet Continue Atorvastatin 80 mg once a day Will recheck her labs and fasting lipids in 3 months for follow-up (3) Benign essential hypertension: Code(s): I10 - Essential (primary) hypertension Plan: Reinforced low-sodium diet - goal is systolic BP of at least 140 mm or less Continue Candesartan 32 mg QD; HCTZ was previously discontinued (4) Paroxysmal atrial fibrillation: Code(s): I48.0 - Paroxysmal atrial fibrillation Plan: Patient currently remains in sinus rhythm and is asymptomatic Follow up with Cardiology as scheduled (5) Asthma: Code(s): J45.909 - Unspecified asthma, uncomplicated Qualifiers: Asthma complication type: uncomplicated Asthma persistence: persistent Asthma severity: moderate Qualified Code(s): J45.40 - Moderate persistent asthma, uncomplicated Plan: Stable/controlled lately since her Flovent HFA was increased to 2 inhalations BID at her last visit Continue Flovent HFA 110 mcg 2 inhalations BID and Albuterol HFA 1 to 2 inhalations Q 6 hours PRN; states that she uses her nebulizer only when needed (6) Allergic rhinitis: Code(s): J30.9 - Allergic rhinitis, unspecified Qualifiers: Allergic rhinitis seasonality: seasonal Allergic rhinitis trigger: pollen Qualified Code(s): J30.1 - Allergic rhinitis due to pollen Plan: Continue Loratadine 10 mg QD PRN (7) GERD without esophagitis: Code(s): K21.9 - Gastro-esophageal reflux disease without esophagitis Plan: Dietary restrictions reinforced Continue Omeprazole 40 mg QD (8) Vitamin D deficiency: Code(s): E55.9 - Vitamin D deficiency, unspecified Plan: Continue Vitamin D3 1000 units QD (9) Osteoporosis: Code(s): M81.0 - Age-related osteoporosis without current pathological fracture Qualifiers: Osteoporosis type: unspecified Presence of current pathological fracture: without current pathological fracture Qualified Code(s): M81.0 - Age- related osteoporosis without current pathological fracture Plan: Repeat BMD done in July 2022 revealed that patient's BMD has declined significantly from her previous scan in July 2017, especially in the left femur, which has a 23.2% decrease from previous Her A/P spine BMD is most unchanged Her lowest T-score is now at -3.2 in the femoral neck Considering that she has been on Alendronate 70 mg Q week for years (unclear when she actually started taking it but most likely > 5 years, will have patient finish up her current supply of Alendronate, then will D/C the Rx Will also consider having her see endocrinology for this once her current issues with her lower extremity ulcers are under better control (10) Constipation: Code(s): K59.00 - Constipation, unspecified Qualifiers: Constipation type: unspecified constipation type Qualified Code(s): K59.00 - Constipation, unspecified Plan: Reinforced increased oral fluids and dietary fiber States that her Senna Rx has not been helping with her symptoms lately Patient used to take Amitiza so will just have her try starting back on this at 24 mcg BID - Rx sent (11) Primary osteoarthritis involving multiple joints: Code(s): M89.49 - Other hypertrophic osteoarthropathy, multiple sites Plan: Mostly involving her right knee -? has received cortisone injection from Orthopedics in the past without any significant relief Have advised again that physical therapy can help with her knee pain if her symptoms get worse -? patient does not want to pursue this for now; states that she has been able to manage her knee pain so far Continue Gabapentin 300 mg BID and Tramadol 50 mg TID PRN Follow-up with Orthopedics as scheduled or as needed (12) Anxiety: Code(s): F41.9 - Anxiety disorder, unspecified Plan: Continue Lorazepam 0.5 mg 2 to 3 times a day as needed Mirtazapine is also helping (13) Depression: Code(s): F32.9 - Major depressive disorder, single episode, unspecified Qualifiers: Active/Remission status: currently active Depression Type: major depressive disorder Major depression episode severity: unspecified Major depression recurrence: recurrent Qualified Code(s): F33.9 - Major depressive disorder, recurrent, unspecified Plan: Continue Mirtazapine 15 mg Q HS (14) Obesity (BMI 30-39.9): Code(s): E66.9 - Obesity, unspecified Plan: Reinforced diet/exercise as tolerated/lose weight Plan Follow up in 3 months Orders: Orders Comprehensive [place]. Panel Fast 3 Months E78.00 - Pure hypercholesterolemia, unspecified Lipid Panel 3 Months E78.00 - Pure hypercholesterolemia, unspecified Complete Blood Count Auto Diff 3 Months I10 - Essential (primary) hypertension Vitamin D 25-OH Total 3 Months E55.9 - Vitamin D deficiency, unspecified UA CC w/rflx Micro + Cult 3 Months R30.0 - Dysuria TSH reflex Free T4 3 Months E78.00 - Pure hypercholesterolemia, unspecified PTHI 3 Months M81.0 - Age-related osteoporosis without current pathological fracture Referrals Vascular Surgery Referral I83.019 - Varicose veins of right lower extremity with ulcer of unspecified site, I83.029 - Varicose veins of left lower extremity with ulcer of unspecified site, L97.919 - Non-pressure chronic ulcer of unspecified part of right lower leg with unspecified severity, L97.929 - Non- pressure chronic ulcer of unspecified part of left lower leg with unspecified severity Medications: Refilled lubiprostone (Amitiza) 24 mcg PO BID 60 caps 1RF Coding Level of Care Code Est Pt Level 4 (15474) Diagnoses Venous stasis ulcers of both lower extremities I83.019; I83.029; L97.919; L97.929 Pure hypercholesterolemia E78.00 Benign essential hypertension I10 Paroxysmal atrial fibrillation I48.0 Asthma J45.40 Asthma complication type: uncomplicated Asthma persistence: persistent Asthma severity: moderate Allergic rhinitis J30.1 Allergic rhinitis seasonality: seasonal Allergic rhinitis trigger: pollen GERD without esophagitis K21.9 Vitamin D deficiency E55.9 Osteoporosis M81.0 Osteoporosis type: unspecified Presence of current pathological fracture: without current pathological fracture Constipation K59.00 Constipation type: unspecified constipation type Primary osteoarthritis involving multiple joints M89.49 Anxiety F41.9 Depression F33.9 Active/Remission status: currently active Depression Type: major depressive disorder Major depression episode severity: unspecified Major depression recurrence: recurrent Obesity (BMI 30-39.9) E66.9
[2023-03-05 10:00] VITALS: BP 130/82; PULSE 72; O2SAT 96; BMI 35.4
== END 2023-03-05 10:58 | disposition home or self-care (01) ==
PROVIDERS: PCP Internal Medicine; Visit Provider Internal Medicine
DX: I10 Essential (primary) hypertension (principal); I83.019 Varicose veins of right lower extremity with ulcer of unspecified site; I83.029 Varicose veins of left lower extremity with ulcer of unspecified site; L97.919 Non-pressure chronic ulcer of unspecified part of right lower leg with unspecified severity; L97.929 Non-pressure chronic ulcer of unspecified part of left lower leg with unspecified severity; I48.0 Paroxysmal atrial fibrillation; E78.00 Pure hypercholesterolemia, unspecified; J45.40 Moderate persistent asthma, uncomplicated; J30.1 Allergic rhinitis due to pollen; K21.9 Gastro-esophageal reflux disease without esophagitis; E55.9 Vitamin D deficiency, unspecified; M81.0 Age-related osteoporosis without current pathological fracture
CPT/HCPCS: 99214

== ENCOUNTER 2023-03-06 20:40 | Emergency (ER) | payer OTHER, SELFPAY ==
[2023-03-06 21:09] VITALS: BP 207/85; PULSE 78; RESP 18; TEMP 36.8; O2SAT 97; BMI 35.5
[2023-03-06 22:21] LABS: Hematocrit 39.3 % (37.0-47.0); Hemoglobin 12.5 g/dl (12.0-16.0); Mean Corpuscular HGB Conc 31.8 g/dl (31.0-35.0); Mean Corpuscular Hemoglobin 27.6 pg (27.0-33.0); Mean Corpuscular Volume 86.8 fL (80.0-98.0); Mean Platelet Volume 10.7 fL (9.4-12.3); Platelet Count 278 X10*3/uL (160-400); Red Blood Count 4.53 X10*6/uL (4.20-5.50); Red Cell Distribution Width 13.6 % (11.0-16.0); White Blood Count 9.6 X10*3/uL (4.8-10.8)
[2023-03-06 22:50] LABS: Alanine Aminotransferase 15 U/L (0-31); Alkaline Phosphatase 95 U/L (39-117); Anion Gap 12 (12-20); Aspartate Amino Transferase 23 U/L (5-31); Bilirubin Total 0.3 mg/dL (0.0-1.0); Blood Urea Nitrogen 20 mg/dL (9-16); Calcium 9.3 mg/dL (8.4-10.2); Carbon Dioxide 26 mmol/L (22-29); Chloride 107 mmol/L (96-108); Creatinine Clr Calc Pharmacy 61.4; Estimated Glomerular Filt Rate > 60; Glucose Random 97 mg/dL (60-115); Potassium 4.1 mmol/L (3.3-5.1); Sodium 141 mmol/L (135-145); Total Protein 7.3 g/dL (6.5-8.0)
[2023-03-06 23:22] VITALS: BP 178/61; PULSE 73; RESP 18; TEMP 36.7; O2SAT 98
--- NOTE | 2023-03-07 00:13 | ED_ITS ---
HPI - General Adult General Chief complaint: General Medical Stated complaint: bilateral feet pain Time Seen by Provider: 03/07/23 00:12 Source: patient Mode of arrival: ambulatory Limitations: no limitations History of Present Illness HPI narrative: 77-year-old female with history of venous stasis ulcers, insomnia, cellulitis, MGUS, osteoarthritis, depression, vitamin-D deficiency, as proximal atrial fibrillation presents for wounds on her lower extremities. She was seen on March 03 in the emergency department due to the ulcerations use on both over lower extremities. They are causing a burning sensation. They apparently started a little over 1 month ago. She had been referred to wound care clinic as well as to vascular surgery. Patient has reported no injury or trauma to the extremities. She does report having elevated blood pressure which appears to be secondary to pain. Patient is currently on doxycycline. She is on mupirocin. She also takes gabapentin 300 mg 3 times a day. However, her pain remains severe. She was referred to a vascular surgeon in [place] who told her veins were fine. She has been referred to another vascular surgeon at [facility]. She has not yet been able to get a appointment with that provider. Related Data Home Medications Medication Instructions Recorded Confirmed calcium carb-vit D3-minerals 600 1 tab PO DAILY 09/26/22 03/05/23 mg calcium-200 unit tablet Previous Rx's Medication Instructions Recorded inhalational spacing device #1 ea 04/07/21 (Aerochamber MV spacer) miscellaneous medical supply #1 ea 08/15/21 loratadine 10 mg tablet 10 mg PO DAILY PRN allergy 05/10/22 symptoms 90 days #90 tabs sennosides 8.6 mg capsule (senna) 8.6 mg PO BEDTIME PRN constipation 07/23/22 90 days #90 caps candesartan 32 mg tablet 32 mg PO DAILY #90 tabs 09/03/22 triamcinolone acetonide 0.1 % 1 appl topical BID 10 days #30 09/06/22 topical cream grams guaifenesin 600 mg tablet, 600 mg PO BID 10 days #20 tabs 10/04/22 extended release 12 hr (Mucinex) atorvastatin 80 mg tablet 80 mg PO BEDTIME 90 days #90 tabs 10/31/22 fluticasone propionate 110 2 puff inhalation BID 30 days #12 10/31/22 mcg/actuation HFA aerosol inhaler grams (Flovent HFA) cholecalciferol (vitamin D3) 25 25 mcg PO DAILY 90 days #90 caps 11/09/22 mcg (1,000 unit) capsule benzonatate 100 mg capsule 100 mg PO TID PRN cough 10 days 11/20/22 #30 caps acetaminophen 650 mg 650 mg PO Q8H PRN pain 30 days #90 12/31/22 tablet,extended release tabs albuterol sulfate 90 mcg/actuation 1 puff inhalation Q6H #8.5 ea 12/31/22 aerosol inhaler alendronate 70 mg tablet 70 mg PO QWEEK 3 months #13 tabs 12/31/22 gabapentin 300 mg capsule 300 mg PO BID 30 days #60 caps 12/31/22 zolpidem 10 mg tablet 10 mg PO BEDTIME PRN sleep 30 days 02/04/23 #30 tabs mupirocin 2 % topical ointment 1 appl topical BID 14 days #22 02/20/23 grams tramadol 50 mg tablet 50 mg PO BID PRN pain 30 days #60 02/27/23 tabs doxycycline hyclate 100 mg tablet 100 mg PO BID #20 tabs 03/03/23 ibuprofen 600 mg tablet 600 mg PO Q8H PRN pain #20 tabs 03/03/23 mupirocin 2 % topical ointment 1 appl topical TID #22 grams 03/03/23 lubiprostone 24 mcg capsule 24 mcg PO BID #60 caps 03/05/23 (Amitiza) silver sulfadiazine 1 % topical 1 appl topical BID #25 grams 03/07/23 cream (Silvadene) tramadol 50 mg tablet 50 mg PO Q8H PRN pain #10 tabs 03/07/23 Allergies Allergy/AdvReac Type Severity Reaction Status Date / Time morphine [MORPHINE] Allergy Intermediate VOMITING Verified 03/05/23 12:31 Penicillins [PENICILLINS] Allergy Mild RASH Verified 03/05/23 12:31 oxaprozin [From Daypro] Allergy Unknown RASH Verified 03/05/23 12:31 budesonide [Symbicort] AdvReac Unknown nausea and Verified 03/05/23 12:31 vomiting Review of Systems Review of Systems: CONSTITUTIONAL: Denies weight loss, fever and chills. HEENT: Denies changes in vision and hearing. RESPIRATORY: Denies SOB and cough. CV: Denies palpitations no CP. GI: Denies abdominal pain, nausea, vomiting and diarrhea. : Denies dysuria and urinary frequency. MSK: Denies myalgia and joint pain. SKIN: Denies rash and pruritus. Ulcerations of lower extremities NEUROLOGICAL: Denies headache and syncope. PSYCHIATRIC: Denies recent changes in mood. Denies anxiety and depression. All other ROS are negative unless in HPI PMFSH Past Medical History Medical History Allergic rhinitis Anxiety Asthma Benign essential hypertension Constipation Depression GERD without esophagitis Insomnia Obesity (BMI 30-39.9) Osteoarthritis Osteopenia Osteoporosis PAF (paroxysmal atrial fibrillation) Paroxysmal atrial fibrillation Pure hypercholesterolemia Vitamin D deficiency Surgical History History of colonoscopy Family History Family History Father CVD (cardiovascular disease) Stroke Mother Medical history unknown Social History Social History Housing: Apartment Alcohol intake: never Patient Tobacco Use Status: Never used Tobacco e-Cigarette/Vaping Use: Never Used Second Hand Smoke Exposure: Yes Advance Directives: No Advance Directives Information Provided: No service: No Current occupational status: disabled Cognitive needs: No Hearing needs: No Vision needs: Yes (glasses) Physical Exam ED Vital Signs: Vital Signs - 24 hr 03/06/23 21:09 03/06/23 23:22 Temperature 98.2 F 98.0 F Pulse Rate 78 73 Respiratory Rate 18 18 Blood Pressure 207/85 H 178/61 H Pulse Oximetry 97 98 Oxygen Delivery Method Room Air Room Air BMI result Body Mass Index 35.5 GEN: Well developed, no acute distress, alert, oriented HEENT: Normocephalic, atraumatic, normal external ears, nose appears normal Eyes: Normal to appearance Neck: Supple, no lymphadenopathy Respiratory: Talks in complete sentences, no respiratory distress Extremities: No clubbing cyanosis or edema Neurologic: No focal neurologic deficits, cranial nerves 2-12 intact, gait normal Skin: No rash Medical Decision Making Medical Decision Making MDM Narrative: 77-year-old female presents with ulceration lower extremities. She has been told they are venous stasis ulcer sirs. However, she has very good pulses and has minimal venous stasis. Etiology the ulceration on she is currently on doxycycline. At this point, I will also add Silvadene cream not only for the antibiotic effect but also for the soothing components to that medication. Health provider for additional pain continue gabapentin 300 mg 3 times daily. S hould her ulcerations worsen, develops fevers, increasing redness, she will return for re-evaluation. Differential diagnosis includes cellulitis, venous stasis ulcers, arterial insufficiency, MRSA Differential Diagnosis Differential Diagnoses: The differential diagnosis associated with the presentation includes ( see above) Lab Data MDM Lab Attestation statement: I reviewed the patient's lab results. 03/06/23 22:15 03/06/23 22:15 Labs: Lab Results 03/06/23 03/06/23 Range/Units 22:15 22:15 WBC 9.6 (4.8-10.8) X10*3/uL RBC 4.53 (4.20-5.50) X10*6/uL Hgb 12.5 (12.0-16.0) g/dl Hct 39.3 (37.0-47.0) % MCV 86.8 (80.0-98.0) fL MCH 27.6 (27.0-33.0) pg MCHC 31.8 (31.0-35.0) g/dl RDW 13.6 (11.0-16.0) % Plt Count 278 (160-400) X10*3/uL MPV 10.7 (9.4-12.3) fL Absolute Nucleated RBC 0.000 (0.0-0.012) X10*3/uL Nucleated RBC % (auto) 0.0 (0.0-0.2) /100WBC Sodium 141 (135-145) mmol/L Potassium 4.1 (3.3-5.1) mmol/L Chloride 107 (96-108) mmol/L Carbon Dioxide 26 (22-29) mmol/L Anion Gap 12 (12-20) BUN 20 H (9-16) mg/dL Creatinine 0.76 (0.5-1.4) mg/dL Estim Creat Clear Calc 61.4 Estimated GFR > 60 Random Glucose 97 (60-115) mg/dL Calcium 9.3 (8.4-10.2) mg/dL Total Bilirubin 0.3 (0.0-1.0) mg/dL AST 23 (5-31) U/L ALT 15 (0-31) U/L Alkaline Phosphatase 95 (39-117) U/L Total Protein 7.3 (6.5-8.0) g/dL Albumin 4.0 (3.5-5.0) g/dL Independent Historian Clinical information obtained from an independent historian. History obtained from or confirmed by: Spouse Prescription Management I considered prescription management with: Pain Medication and Antibiotic Discharge Plan Discharge Clinical Impression: Ulcer of right lower leg, Ulcer of left lower leg Patient Disposition: Home, Self-Care Instructions: Acute Wounds (ED) Prescriptions: New tramadol 50 mg tablet 50 mg PO Q8H PRN (Reason: pain) Qty: 10 0RF silver sulfadiazine [Silvadene] 1 % cream 1 appl topical BID Qty: 25 0RF Rx Instructions: apply a 1.5 mm thickness No Action (DME) miscellaneous medical supply Misc 0 .Route Qty: 1 0RF Rx Instructions: Power Lift Chair - As directed - to use indefinatly loratadine 10 mg tablet 10 mg PO DAILY PRN (Reason: allergy symptoms) 90 Days Qty: 90 1RF senna 8.6 mg capsule 8.6 mg PO BEDTIME PRN (Reason: constipation) 90 Days Qty: 90 12RF candesartan 32 mg tablet 32 mg PO DAILY Qty: 90 1RF triamcinolone acetonide 0.1 % cream 1 appl topical BID 10 Days Qty: 30 1RF cholecalciferol (vitamin D3) 25 mcg (1,000 unit) capsule 25 mcg PO DAILY 90 Days Qty: 90 3RF benzonatate 100 mg capsule 100 mg PO TID PRN (Reason: cough) 10 Days Qty: 30 1RF alendronate 70 mg tablet 70 mg PO QWEEK 90 Days Qty: 13 1RF albuterol sulfate 90 mcg/actuation HFA aerosol inhaler 1 puff inhalation Q6H Qty: 8.5 3RF gabapentin 300 mg capsule 300 mg PO BID 30 Days Qty: 60 2RF acetaminophen 650 mg tablet extended release 650 mg PO Q8H PRN (Reason: pain) 30 Days Qty: 90 3RF zolpidem 10 mg tablet 10 mg PO BEDTIME PRN (Reason: sleep) 30 Days Qty: 30 2RF tramadol 50 mg tablet 50 mg PO BID PRN (Reason: pain) 30 Days Qty: 60 0RF calcium carbonate-vit D3-min 600 mg calcium- 200 unit tablet 1 tab PO DAILY doxycycline hyclate 100 mg tablet 100 mg PO BID Qty: 20 0RF mupirocin 2 % ointment 1 appl topical TID Qty: 22 0RF ibuprofen 600 mg tablet 600 mg PO Q8H PRN (Reason: pain) Qty: 20 0RF (DME) Aerochamber MV Spacer See Rx Instructions .Route Qty: 1 0RF Rx Instructions: As directed fluticasone propionate [Flovent HFA] 110 mcg/actuation HFA aerosol inhaler 2 puff inhalation BID 30 Days Qty: 12 5RF atorvastatin 80 mg tablet 80 mg PO BEDTIME 90 Days Qty: 90 1RF guaifenesin [Mucinex] 600 mg tablet extended release 12hr 600 mg PO BID 10 Days Qty: 20 0RF lubiprostone [Amitiza] 24 mcg capsule 24 mcg PO BID Qty: 60 1RF mupirocin 2 % ointment 1 appl topical BID 14 Days Qty: 22 0RF Referrals: [facility] [place] Wound Care Management [Provider Group]
[2023-03-07] MEDS: traMADoL HCL 50 MG TABLET PO (00:43)
[2023-03-07] MEDS: Silver Sulfadiazine 1 % Cream 20 GM TUBE 1 APPL TOPICAL (00:44)
== END 2023-03-07 00:37 | disposition home or self-care (01) ==
PROVIDERS: Emergency Provider Emergency Medicine; PCP Internal Medicine
DX: L97.329 Non-pressure chronic ulcer of left ankle with unspecified severity (principal); Z79.899 Other long term (current) drug therapy
CPT/HCPCS: 36415; 80053; 85027; 99283; 99284

== ENCOUNTER 2023-03-07 12:36 | Outpatient (RCR) | payer OTHER, MEDICAID, SELFPAY | END 2023-09-03 17:00 | disposition home or self-care (01) | LOC: HO.WCC 12:36 | PROVIDERS: PCP Internal Medicine; Visit Provider Surgery | DX: I87.333 Chronic venous hypertension (idiopathic) with ulcer and inflammation of bilateral lower extremity (principal); L97.822 Non-pressure chronic ulcer of other part of left lower leg with fat layer exposed; L97.312 Non-pressure chronic ulcer of right ankle with fat layer exposed; S91.301A Unspecified open wound, right foot, initial encounter; S91.302A Unspecified open wound, left foot, initial encounter | CPT/HCPCS: 11042; 11045; 97597 ==

== ENCOUNTER 2023-03-14 14:42 | Outpatient (REF) | payer OTHER, MEDICAID, SELFPAY ==
--- NOTE | ~2023-03-14 | US_ITS ---
EXAMINATION: NONINVASIVE ASSESSMENT OF THE ARTERIES OF BOTH LOWER EXTREMITIES INCLUDING PVR EXAM AND BILATERAL LOWER EXTREMITY DUPLEX CLINICAL INFORMATION: Right lower extremity nonhealing wounds COMPARISON: 09/14/2021 TECHNIQUE: Ankle pulse volume recordings, ankle pressure measurements and ankle brachial indices were obtained of the lower extremity arterial system bilaterally in addition to duplex Doppler techniques with wave form analysis and measurement of velocities in the common femoral, profunda femoral, superficial femoral, popliteal, tibial and peroneal arteries. The study was performed only at rest. FINDINGS: RIGHT LEG 1. Right Ankle-Brachial Index: 1.28 -likely falsely elevated due to poorly compressible vessels >0.97-1.25 = normal - no significant arterial disease 0.75-0.96 = mild peripheral arterial disease 0.5-0.74 = moderate peripheral arterial disease <0.50 = severe peripheral arterial disease <0.30 = critical arterial disease 2. Segmental Pressures (mmHg): Brachial: 151 Ankle: PT 202, DP 203 3. PVR Waveforms: Ankle: Dampened, mildly abnormal, similar to prior 4. Direct Duplex: Common femoral artery: 70.9 cm/s, Multiphasic Profunda femoris artery: 59 cm/s, monophasic Superficial femoral artery (proximal): 80.1 cm/s, Multiphasic Superficial femoral artery (mid): 83.1 cm/s, Multiphasic Superficial femoral artery (distal): 74.2 cm/s, Multiphasic Proximal Popliteal artery: 76.2 cm/s, Multiphasic Distal popliteal artery: 72.7 cm/s, Multiphasic Distal posterior tibial artery: 75.7 cm/s, Multiphasic Peroneal artery: 51 cm/s, Multiphasic Anterior tibial artery: 49.4 cm/s, multiphasic LEFT LE. Left Ankle-Brachial Index: 1.05 >0.97-1.25 = normal - no significant arterial disease 0.75-0.96 = mild peripheral arterial disease 0.5-0.74 = moderate peripheral arterial disease <0.50 = severe peripheral arterial disease <0.30 = critical arterial disease 2. Segmental Pressures: Brachial: 158 Ankle: PT 202, DP 166 3. PVR Waveforms: Ankle: Mildly abnormal US/US arterial duplex LE RT IMPRESSION: Likely falsely elevated arterial brachial indices secondary to noncompressible vessels. On the left the ankle-brachial index is 1.05. Loss of dicrotic notch bilaterally indicating some degree of arterial disease. There is monophasic flow within the profunda femoris artery, otherwise there is normal multiphasic flow throughout the right lower extremity.
== END 2023-03-14 14:43 | disposition home or self-care (01) ==
LOC: HO.US 14:42
PROVIDERS: Visit Provider Surgery
DX: I70.233 Atherosclerosis of native arteries of right leg with ulceration of ankle (principal)
CPT/HCPCS: 93923; 93926

== ENCOUNTER 2023-04-05 09:34 | Outpatient (AMB) | payer OTHER, MEDICAID, SELFPAY ==
[2023-04-05 09:38] VITALS: BP 132/80; PULSE 81; O2SAT 99; BMI 34.6
--- NOTE | 2023-04-05 09:38 | MHC.PC.OV ---
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 Per Diem Physical Therapist Assistant Required: No Accompanied by: Self / Same As Patient Allergies morphine [MORPHINE] Allergy (Intermediate, Verified 04/05/23 10:13) VOMITING Penicillins [PENICILLINS] Allergy (Mild, Verified 04/05/23 10:13) RASH oxaprozin [From Daypro] Allergy (Unknown, Verified 04/05/23 10:13) RASH budesonide [Symbicort] Adverse Reaction (Unknown, Verified 04/05/23 10:13) nausea and vomiting Medication List - Last Reconciled 04/05/23 by Milton Ackerman MD acetaminophen ER 650 mg PO Q8H PRN 30 days albuterol sulfate 90 mcg/actuation 1 puff inhalation Q6H alendronate 70 mg PO QWEEK 3 months atorvastatin 80 mg PO BEDTIME 90 days benzonatate 100 mg PO TID PRN 10 days calcium carbonate-vit D3-min 600 mg calcium- 200 unit 1 tab PO DAILY candesartan 32 mg PO DAILY cholecalciferol (vitamin D3) 25 mcg PO DAILY 90 days fluticasone propionate 110 mcg/actuation (Flovent HFA) 2 puffs inhalation BID 30 days gabapentin 300 mg PO BID 30 days guaifenesin ER (Mucinex) 600 mg PO BID 10 days ibuprofen 600 mg PO Q8H PRN inhalational spacing device (Aerochamber MV spacer) As directed loratadine 10 mg PO DAILY PRN 90 days lubiprostone (Amitiza) 24 mcg PO BID mineral oil (Fleet Mineral Oil enema) 118 mL [place] DAILY miscellaneous medical supply Power Lift Chair - As directed - to use indefinatly mupirocin 2% 1 appl topical TID mupirocin 2% 1 appl topical BID 14 days oxycodone 10 mg PO Q8H PRN sennosides (senna) 8.6 mg PO BEDTIME PRN 90 days silver sulfadiazine 1% (Silvadene) 1 appl topical BID tramadol 50 mg PO BID PRN 30 days zolpidem 10 mg PO BEDTIME PRN 30 days Tobacco use date assessed: 04/05/23 Fall risk assessment: No Falls in past year Last assessed Fall Risk: 04/05/23 Dental Screening Dental Screen Date: 04/05/23 Did you have a dental visit in the last 12 months?: Yes Did you have a dental problem in the last 6 months where you did not have access to dental care?: No Was dental information given to patient?: Patient has dentist HPI unbearable pain in feet HPI Details Patient comes in today complaining of increased pain in both feet She has recurrent painful chronic ulcers on both ankles and feet that have been going on for months now, likely vascular ulcers She was reportedly seen by vascular surgery at [facility] yesterday and is apparently being scheduled for some procedure (cath?) on 05/07/23 at 9 am - we have not received any office visit report from vascular surgery yet so we have no further information regarding this She was reportedly advised about their concerns that the ulcers may spread into the bone, which is similar to what I have mentioned to her during her past visits here, and was reportedly advised to see her PCP VALORIE (still do not know why) We did start her on empiric Abx Tx with Doxycycline for 10 days last month and she is currently being attended to by Wound Care for her lower extremity ulcers She had an arterial duplex done on 03/14/2023 that came out inconclusive States that her previous Rx for Tramadol helped with her pain but she ran out of her Rx a few days ago She denies any fever, headaches or dizziness Denies any chest pains, no increased SOB No nausea/vomiting, no abdominal pain No change in bowel habits noted PFSH Medical History Constipation Osteoporosis Allergic rhinitis Insomnia Osteoarthritis Obesity (BMI 30-39.9) Depression Anxiety Osteopenia Vitamin D deficiency GERD without esophagitis Asthma Paroxysmal atrial fibrillation Pure hypercholesterolemia Benign essential hypertension PAF (paroxysmal atrial fibrillation) Surgical History History of colonoscopy Family History Father CVD (cardiovascular disease) Stroke Mother Medical history unknown Social History Housing: Apartment Alcohol intake: never Patient Tobacco Use Status: Never used Tobacco e-Cigarette/Vaping Use: Never Used Second Hand Smoke Exposure: Yes service: No Current occupational status: disabled Cognitive needs: No Hearing needs: No Vision needs: Yes (glasses) Questionnaire PHQ-9 Over the last 2 weeks, how often have you been bothered by any of the following problems? 1. Little interest or pleasure in doing things: not at all 2. Feeling down, depressed, or hopeless: several days 3. Trouble falling or staying asleep, or sleeping too much: more than half the days 4. Feeling tired or having little energy: nearly every day 5. Poor appetite or overeating: not at all 6. Feeling bad about yourself - or that you are a failure or have let yourself or your family down: not at all 7. Trouble concentrating on things, such as reading the newspaper or watching television: not at all 8. Moving or speaking so slowly that other people could have noticed. Or the opposite - being so fidgety or restless that you have been moving around a lot more than usual: several days 9. Thoughts that you would be better off or of hurting yourself in some way: not at all Total score: 7 Depression Screening Interpretation: Positive Depression Screening Follow-up: Existing condition and In treatment 64717 - PHQ-9 Billing: Yes Source: Developed by Drs. Abisai Peñaloza, Celina Simeon, yAad Briceno and colleagues, with an educational elif from [employer]. Thrive Questionnaire Date Thrive assessed: 04/05/23 I am a: Patient What is your living situation today?: I have a steady place to live Within the past 12 months, did the food you bought not last and you didn't have the money to get more?: Never true Within the past 12 months, did you worry whether your food would run out before you got money to buy more?: Never true Do you have trouble paying for medicines?: No Do you have trouble getting transportation to medical appointments?: No Do you have trouble paying your heating and electricity bill?: No Do you have trouble taking care of your child, family member or friend?: No Do you have trouble with day-to-day activities such as bathing, preparing meals, shopping, managing finances, etc.?: No Are you currently unemployed and looking for a job?: No Are you interested in more education?: No Please select the resources that you would like help with: None Currently or been in a relationship where the following occur: no concerns reported AUDIT C Alcohol Use Questionnaire (AUDIT-C) 1. How often do you have a drink containing alcohol?: Never 3. How often do you have six or more drinks on one occasion?: Never Total Score: 0 Score Reviewed/Action Taken: Yes FARIDEH-7 AMB Questionnaire FARIDEH-7 Date FARIDEH - 7 assessed: 04/05/23 Feeling nervous, anxious, or on edge: 0 = Not at all Not being able to stop or control worryin = Not at all Worrying too much about different things: 0 = Not at all Trouble relaxin = Not at all Being so restless that it is hard to sit still: 0 = Not at all Becoming easily annoyed or irritable: 0 = Not at all Feeling afraid as if something awful might happen: 0 = Not at all Total FARIDEH-7 score (0-4 normal; 5-9 mild; 10-14 moderate; 15-21 severe): 0 Source: Developed by Drs. Abisai Peñaloza, Celina Simeon, Ayad Briceno and colleagues, with an educational elif from [employer]. Review of Systems Const Denies chills, Reports difficulty sleeping (due to pain), Reports fatigue, Denies fever(s) and Denies headache(s) ENT Denies dysphagia, Denies dizziness, Denies headache(s), Denies odynophagia and Denies sore throat Card Denies chest pain, Denies palpitations and Reports dyspnea on exertion (mild) Resp Denies chest congestion, Denies cough, Reports dyspnea on exertion (mild) and Denies wheezing GI Denies abdominal pain, Reports constipation (on and off), Denies dysphagia, Denies heartburn, Denies diarrhea, Denies nausea, Denies odynophagia and Denies vomiting Denies difficulty voiding, Denies nocturia and Denies dysuria Musc Reports arthralgias (involving multiple joints, especially her knees) Skin/Breast Reports skin ulcer ((+) multiple painful sores/ulcers on both lower legs distally and ankles) Neuro Denies dizziness and Denies headache(s) Endo Reports fatigue and Denies palpitations Aller/Immun Denies wheezing Physical exam (Primary Care) Vital Signs: Last Vital Signs Pulse 81 04/05/23 09:38 BP 132/80 04/05/23 09:38 Pulse Ox 99 04/05/23 09:38 Oxygen Delivery Method Room Air 04/05/23 09:38 BMI result Body Mass Index 34.6 Tobacco/Smoking Status: Tobacco use Status Tobacco use date assessed 04/05/23 04/05/23 09:42 Patient Tobacco Use Status Never used Tobacco 04/05/23 09:42 e-Cigarette/Vaping Use Never Used 04/05/23 09:42 PHQ-9: PHQ-9 Score PHQ-9: Total score 7 04/05/23 09:48 Depression Screening Interpretation: Positive Depression Screening Follow-up: Existing condition and In treatment Thrive Assessment: Date of Thrive Assessment Date Thrive assessed 04/05/23 04/05/23 09:42 Currently or been in a relationship where the following occur: no concerns reported Const General: no acute distress and alert HENMT Throat: Yes posterior oropharynx normal and Yes tonsils normal (no TP congestion) Neck Neck: Yes no lymphadenopathy and Yes supple Resp Auscultation: clear to auscultation bilaterally, no rales, no rhonchi, no wheezes and diminished lung sounds (slightly) bilateral Cardio Rate: regular rate Rhythm: regular rhythm Heart sounds: no murmurs GI Palpation (GI): Soft to palpation and nontender Auscultation: normal bowel sounds Skin Other: (+) multiple non-draining ulcers noted over the distal half of both lower legs, including around the ankle areas bilaterally Extrem General: Yes no clubbing, cyanosis or edema Assessment and Plan Assessment & Plan (1) Venous stasis ulcers of both lower extremities: Code(s): I83.019 - Varicose veins of right lower extremity with ulcer of unspecified site; I83.029 - Varicose veins of left lower extremity with ulcer of unspecified site; L97.919 - Non-pressure chronic ulcer of unspecified part of right lower leg with unspecified severity; L97.929 - Non-pressure chronic ulcer of unspecified part of left lower leg with unspecified severity Plan: Will start patient back empirically on Doxycycline 100 mg BID for now She is instructed to continue to keep her legs elevated as often as she can and to follow up with the wound clinic as scheduled She was referred to and seen by vascular surgery at [facility] yesterday and appears to be scheduled for a cath procedure on 05/07/23 but am unclear at this time as to why patient is reportedly instructed to see her PCP VALORIE (?preop clearance?) Will try to get vascular surgery at [facility] to send over their office visit report VALORIE for review and have advised patient that we will reach out to her if there are any other tests or orders that we need her to do on short notice Continue Tramadol 50 mg BID PRN for pain - Rx refilled We will also start her back on Gabapentin 300 mg BID to help her with her neuropathic pain symptoms Plan Follow up as scheduled in May 2023 Medications: New doxycycline monohydrate 100 mg PO BID 10 days 20 caps 0RF Refilled gabapentin 300 mg PO BID 30 days 60 caps 2RF tramadol 50 mg PO BID 30 days PRN 60 tabs 0RF pain M19.90 - Unspecified osteoarthritis, unspecified site Coding Level of Care Code Est Pt Level 3 (60156) Diagnoses Venous stasis ulcers of both lower extremities I83.019; I83.029; L97.919; L97.924
== END 2023-04-05 10:24 | disposition home or self-care (01) ==
PROVIDERS: PCP Internal Medicine; Visit Provider Internal Medicine
DX: I83.019 Varicose veins of right lower extremity with ulcer of unspecified site (principal); I83.029 Varicose veins of left lower extremity with ulcer of unspecified site; L97.919 Non-pressure chronic ulcer of unspecified part of right lower leg with unspecified severity; L97.929 Non-pressure chronic ulcer of unspecified part of left lower leg with unspecified severity
CPT/HCPCS: 99213

== ENCOUNTER 2023-04-08 09:00 | Emergency (ER) | payer OTHER, MEDICAID, SELFPAY ==
--- NOTE | ~2023-04-08 | CT_ITS ---
EXAMINATION: CT ABDOMEN AND PELVIS WITH CONTRAST CLINICAL INFORMATION: Rectal mass versus constipation COMPARISON: None available. TECHNIQUE: Multidetector volumetric images were obtained from the superior aspect of the liver through the pubic symphysis following administration 85 mL of Omnipaque 350 intravenous contrast. Sagittal and coronal reformatted images were obtained on the technologist's workstation. Oral contrast: No This CT examination was performed using dose optimization techniques as appropriate, variously including the following: *Automated exposure control *Adjustment of mA and/or kV according to patient size (this includes techniques or standardized protocols for targeted exams where dose is matched to indication/reason for exam; i.e. extremities or head) *Use of iterative reconstruction technique DLP: 573 mGy-cm FINDINGS: LUNG BASES: The visualized lung bases are unremarkable aside from the presence of a 6 mm nodular density in the posterior left costophrenic sulcus.. LIVER, GALLBLADDER, AND BILIARY TREE: The liver is enlarged measuring 18.2 cm in greatest length. No focal hepatic lesion or biliary ductal dilatation is present. The gallbladder is unremarkable with no evidence of radiopaque gallstones, gallbladder wall thickening, or obvious pericholecystic inflammatory changes. PANCREAS: Unremarkable. SPLEEN: Unremarkable. ADRENAL GLANDS: Unremarkable. KIDNEYS AND URETERS: The kidneys are normal in size, shape, and attenuation. No hydronephrosis, hydroureter, or calculi seen. No perinephric stranding. Multiple bilateral cortical and parapelvic benign Bosniak class I renal cysts are noted, the largest measuring almost 4 cm and the left upper pole which require no additional imaging or follow-up. No solid renal masses are seen. BLADDER: Unremarkable. GASTROINTESTINAL TRACT: There is fullness in the anorectal region. Recommend correlation with digital rectal exam as a mass cannot be excluded. Only a mild to moderate stool burden present in the colon. Colonic diverticula are seen without diverticulitis. The small and large bowel are otherwise unremarkable. The appendix is unremarkable. ABDOMINAL WALL: No significant hernia is appreciated. LYMPH NODES: Normal. VASCULAR: Unremarkable. PELVIC VISCERA: Unremarkable. OSSEOUS STRUCTURES: Unremarkable. Mild degenerative changes are seen in the lower thoracic spine. CT/CT abdomen pelvis w IV con IMPRESSION: 1. Fullness in the anorectal region. Recommend correlation with digital rectal exam as a mass cannot be excluded. 2. Incidental note made of mild hepatomegaly, benign Bosniak class I renal cysts which require no additional imaging or follow-up, colonic diverticulosis without diverticulitis and 6 mm left lower lobe lung nodule. 2017 Fleischner Society Recommendations for Lung Nodule(s): Follow up based on size (average of long- and short-axis diameters). Use most suspicious nodule for followup. Single Solid lung nodule 6-8 mm: In a low-risk patient, recommend a non-contrast Chest CT at 6-12 months, then consider an additional non-contrast Chest CT at 18-24 months. In a high-risk patient, recommend a non-contrast Chest CT at 6-12 months, then another non-contrast Chest CT at 18-24 months. These guidelines do not apply to patients younger than 35 years, immunocompromised patients, and patients with cancer. F/u in patients with significant comorbidities as clinically warranted. For lung cancer screening, adhere to Lung-RADS guidelines. Reference: Radiology. 2017 Rajiv; 284(1):228-243
[2023-04-08 09:55] VITALS: BP 147/76; PULSE 78; RESP 16; TEMP 36.5; O2SAT 97; BMI 34.8
[2023-04-08 10:14] LABS: MANUAL DIFF FLAG NO
[2023-04-08 10:15] LABS: Basophils Percent Auto 0.2 % (0-2); Eosinophils Absolute Auto 0.1 X10*3/uL (0.0-0.4); Eosinophils Percent Auto 0.5 % (0-4); Hematocrit 43.9 % (37.0-47.0); Hemoglobin 13.8 g/dl (12.0-16.0); Imm Gran Abs Auto 0.06 X10*3/uL (0.00-0.03); Imm Gran Pct Auto 0.5 % (0.0-0.4); Lymphocytes Absolute Auto 1.1 X10*3/uL (1.2-4.9); Lymphocytes Percent Auto 8.5 % (20-40); Mean Corpuscular HGB Conc 31.4 g/dl (31.0-35.0); Mean Corpuscular Hemoglobin 27.2 pg (27.0-33.0); Mean Corpuscular Volume 86.4 fL (80.0-98.0); Mean Platelet Volume 10.8 fL (9.4-12.3); Monocytes Absolute Auto 0.7 X10*3/uL (0.1-1.2); Monocytes Percent Auto 5.4 % (2-11); Neutrophils Absolute Auto 11.2 x10*3/uL (2.0-8.3); Neutrophils Percent Auto 84.9 % (45-73); Platelet Count 256 X10*3/uL (160-400); Red Blood Count 5.08 X10*6/uL (4.20-5.50); Red Cell Distribution Width 13.6 % (11.0-16.0); White Blood Count 13.2 X10*3/uL (4.8-10.8)
[2023-04-08 10:27] LABS: Anion Gap 17 (12-20); Blood Urea Nitrogen 19 mg/dL (9-16); Calcium 9.6 mg/dL (8.4-10.2); Carbon Dioxide 24 mmol/L (22-29); Chloride 104 mmol/L (96-108); Estimated Glomerular Filt Rate > 60; Glucose Random 111 mg/dL (60-115); Potassium 4.5 mmol/L (3.3-5.1); Sodium 140 mmol/L (135-145)
[2023-04-08 15:24] VITALS: BP 133/76; PULSE 81; RESP 16; TEMP 36.6; O2SAT 95
[2023-04-08 15:30] VITALS: BP 136/80; PULSE 84; RESP 16; TEMP 36.8; O2SAT 94
--- NOTE | 2023-04-08 15:34 | PC.NURSE ---
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 pt comes in d/t being constipated for 8 days. pt has tried stool softeners and enemas but found no relief. pt currently c/o 02/21 abdominal pain and nausea. pt states that she feels like she has a blockage. pt deies urinary symptoms. pt also denies hx of kidney stones. hyperactive bs noted upon auscultation. abdomen non-tender upon palpation. pt resting comfortably and in no apparent distress. respirations even and unlabored. call olivera placed within reach.
[2023-04-08 15:58] LABS: Appearance Urine Clear; Color Urine Dark Yellow; Glucose Urine UA Negative (Negative); Leukocyte Esterase Urine Trace (Negative); Nitrite Urine Negative (Negative); PH 5.5 (5.0-9.0); Specific Gravity - Urine 1.025 (1.005-1.025); UMIC TRIGGER UACC YES; Urine Blood Negative (Negative); Urine Ketones 40 mg/dL (Negative); Urine Protein Negative (Neg-Trace)
--- NOTE | 2023-04-08 16:13 | ED.GENADULT ---
HPI - General Adult General Chief complaint: General Medical Stated complaint: constipation Time Seen by Provider: 04/08/23 16:13 Source: patient, family (son), RN notes reviewed, old records reviewed and roller print tender Mode of arrival: ambulatory Limitations: language barrier History of Present Illness HPI narrative: This 77-year-old female past medical history significant for constipation,, asthma, paroxysmal AFib, hypertension presents for evaluation of ?constipation and rectal pain. ? Patient reports increased constipation for the last 8 days She reports that she has not been able to have a bowel movement in that time Patient reports that she is use milk of magnesia as well as enemas without any improvement She reports ?it feels like there is a ball there. ? Related Data Home Medications Medication Instructions Recorded Confirmed calcium carb-vit D3-minerals 600 1 tab PO DAILY 09/26/22 04/05/23 mg calcium-200 unit tablet Previous Rx's Medication Instructions Recorded inhalational spacing device #1 ea 04/07/21 (Aerochamber MV spacer) miscellaneous medical supply #1 ea 08/15/21 loratadine 10 mg tablet 10 mg PO DAILY PRN allergy 05/10/22 symptoms 90 days #90 tabs sennosides 8.6 mg capsule (senna) 8.6 mg PO BEDTIME PRN constipation 07/23/22 90 days #90 caps candesartan 32 mg tablet 32 mg PO DAILY #90 tabs 09/03/22 guaifenesin 600 mg tablet, 600 mg PO BID 10 days #20 tabs 10/04/22 extended release 12 hr (Mucinex) atorvastatin 80 mg tablet 80 mg PO BEDTIME 90 days #90 tabs 10/31/22 fluticasone propionate 110 2 puff inhalation BID 30 days #12 10/31/22 mcg/actuation HFA aerosol inhaler grams (Flovent HFA) cholecalciferol (vitamin D3) 25 25 mcg PO DAILY 90 days #90 caps 11/09/22 mcg (1,000 unit) capsule benzonatate 100 mg capsule 100 mg PO TID PRN cough 10 days 11/20/22 #30 caps acetaminophen 650 mg 650 mg PO Q8H PRN pain 30 days #90 12/31/22 tablet,extended release tabs albuterol sulfate 90 mcg/actuation 1 puff inhalation Q6H #8.5 ea 06/19/23 aerosol inhaler alendronate 70 mg tablet 70 mg PO QWEEK 3 months #13 tabs 12/31/22 zolpidem 10 mg tablet 10 mg PO BEDTIME PRN sleep 30 days 02/04/23 #30 tabs mupirocin 2 % topical ointment 1 appl topical BID 14 days #22 02/20/23 grams ibuprofen 600 mg tablet 600 mg PO Q8H PRN pain #20 tabs 03/03/23 mupirocin 2 % topical ointment 1 appl topical TID #22 grams 03/03/23 lubiprostone 24 mcg capsule 24 mcg PO BID #60 caps 03/05/23 (Amitiza) silver sulfadiazine 1 % topical 1 appl topical BID #25 grams 03/07/23 cream (Silvadene) oxycodone 10 mg tablet 10 mg PO Q8H PRN pain #7 tabs 03/15/23 mineral oil (Fleet Mineral Oil 118 ml NC DAILY constipation #133 04/01/23 enema) mL doxycycline monohydrate 100 mg 100 mg PO BID 10 days #20 caps 04/05/23 capsule gabapentin 300 mg capsule 300 mg PO BID 30 days #60 caps 04/05/23 tramadol 50 mg tablet 50 mg PO BID PRN pain 30 days #60 04/05/23 tabs lactulose 20 gram/30 mL oral 20 g (30 mL) PO DAILY PRN 04/08/23 solution constipation #420 mL mineral oil (Fleet Mineral Oil 133 ml NC DAILY PRN constipation 04/08/23 enema) #266 mL polyethylene glycol 3350 17 17 g PO DAILY PRN constipation 04/08/23 gram/dose oral powder (Miralax) #238 grams Allergies Allergy/AdvReac Type Severity Reaction Status Date / Time morphine [MORPHINE] Allergy Intermediate VOMITING Verified 04/05/23 10:13 Penicillins [PENICILLINS] Allergy Mild RASH Verified 04/05/23 10:13 oxaprozin [From Daypro] Allergy Unknown RASH Verified 04/05/23 10:13 budesonide [Symbicort] AdvReac Unknown nausea and Verified 04/05/23 10:13 vomiting Review of Systems Constitutional: Constitutional: Denies chills and Denies fever(s) Cardiovascular: Cardiovascular: Denies chest pain and Denies dyspnea Respiratory: Respiratory: Denies cough and Denies dyspnea Gastrointestinal: Gastrointestinal: Reports abdominal pain and Reports constipation Comments: complains of rectal pain Musculoskeletal: Musculoskeletal: Denies back pain Integumentary/Breasts: Skin/Breast: Denies rash PMFSH Past Medical History Medical History Constipation Osteoporosis Allergic rhinitis Insomnia Osteoarthritis Obesity (BMI 30-39.9) Depression Anxiety Osteopenia Vitamin D deficiency GERD without esophagitis Asthma Paroxysmal atrial fibrillation Pure hypercholesterolemia Benign essential hypertension PAF (paroxysmal atrial fibrillation) Surgical History History of colonoscopy Family History Family History Father CVD (cardiovascular disease) Stroke Mother Medical history unknown Social History Social History Housing: Apartment Alcohol intake: never Patient Tobacco Use Status: Never used Tobacco Smoked in Last 30 Days: No e-Cigarette/Vaping Use: Never Used Second Hand Smoke Exposure: Yes Use of substances other than those prescribed or required for medical reasons: No Advance Directives: No Advance Directives Information Provided: Yes service: No Current occupational status: disabled Cognitive needs: No Hearing needs: No Vision needs: Yes (glasses) Physical Exam ED Vital Signs: Vital Signs - 24 hr 04/08/23 09:55 04/08/23 15:24 04/08/23 15:30 Temperature 97.7 F 97.8 F 98.2 F Pulse Rate 78 81 84 Respiratory Rate 16 16 16 Blood Pressure 147/76 H 133/76 136/80 Pulse Oximetry 97 95 94 Oxygen Delivery Method Room Air Room Air Room Air 04/08/23 18:00 04/08/23 20:01 Temperature 98.3 F 97.8 F Pulse Rate 78 78 Respiratory Rate 16 20 Blood Pressure 125/64 124/68 Pulse Oximetry 96 95 Oxygen Delivery Method Room Air Room Air BMI result Body Mass Index 34.8 Const General: healthy appearing, comfortable, no acute distress, alert and awake Nutritional Appearance: well nourished Orientation/consciousness: patient oriented x3 HENMT Head: Yes normocephalic and Yes atraumatic Eyes Eyelids: Yes eyelids normal Conjunctivae: conjunctivae normal Sclerae: sclerae normal Corneas: corneas normal Pupils: Equal, round and reactive pupils present EOM: EOMs intact bilaterally Neck Neck: Yes full ROM Resp Effort & Inspection: normal respiratory effort, able to speak in complete sentences and not labored GI Inspection: No distended Palpation (GI): Soft to palpation, not firm, nontender, no guarding and not rigid Rectal Exam - Female: visual inspection normal, normal sphincter tone and No External hemorrhoid(s) present Skin General skin exam: no rashes or lesions noted and elasticity normal Neuro General: patient oriented x3 Cranial nerves: Yes Equal, round and reactive pupils present and Yes Bilaterally intact EOM present Cognition (Neuro): normal cognition Extrem Other: Moving all extremities well without any obvious deformities Course Reevaluation(s) Reevaluation #1: Patient's CT scan shows fullness in the rectal vault. Concern for fecal impaction. Given this is consistent with the patient's history, I offered/recommended digital rectal disimpaction to help relieve the patient's discomfort. She declines this time it would prefer to use try additional laxatives. Will discharge her with enema, lactulose and MiraLax. I discussed with her and her son that if she is unable to have a bowel movement or is having increased pain, she should return to the emergency room for digital rectal disimpaction. Both the patient and the son are in agreement with the current plan Time: 21:14 Medications Administered Discontinued Medications Generic Name Dose Route Start Last Admin Trade Name Freq PRN Reason Stop Dose Admin Iohexol 100 ml 04/08/23 19:05 04/08/23 19:06 Iohexol 350 Mg/Ml 100 Ml Infus..Btl IV 04/08/23 19:06 85 ml ONCE ONE Administration Medical Decision Making Medical Decision Making [facility] Narrative: 77-year-old female presents for evaluation of constipation. She is awake calf 13 K. There are no obvious external hemorrhoids on exam. Will get a CT scan of the pelvis to better evaluate the patient's abdominal/rectal pain and evaluate for stool ball/constipation. The patient has not been nauseous and or vomiting, bowel obstruction severe to be less likely Differential Diagnosis Differential Diagnoses: The differential diagnosis associated with the presentation includes Constipation Fecal impaction Small bowel obstruction Rectal mass Lab Data [facility] Lab Attestation statement: I reviewed the patient's lab results. Went to a. No significant anemia, normal platelet count. No electrolyte abnormalities. BUN is just above normal 19 a normal creatinine of 0.87. 04/08/23 10:10 04/08/23 10:09 Labs: Lab Results 04/08/23 04/08/23 04/08/23 Range/Units 10:09 10:10 15:40 WBC 13.2 H (4.8-10.8) X10*3/uL RBC 5.08 (4.20-5.50) X10*6/uL Hgb 13.8 (12.0-16.0) g/dl Hct 43.9 (37.0-47.0) % MCV 86.4 (80.0-98.0) fL MCH 27.2 (27.0-33.0) pg MCHC 31.4 (31.0-35.0) g/dl RDW 13.6 (11.0-16.0) % Plt Count 256 (160-400) X10*3/uL MPV 10.8 (9.4-12.3) fL Immature Gran % (Auto) 0.5 H (0.0-0.4) % Neut % (Auto) 84.9 H (45-73) % Lymph % (Auto) 8.5 L (20-40) % [place] % (Auto) 5.4 (2-11) % Eos % (Auto) 0.5 (0-4) % Baso % (Auto) 0.2 (0-2) % Lymph # (Auto) 1.1 L (1.2-4.9) X10*3/uL [place] # (Auto) 0.7 (0.1-1.2) X10*3/uL Eos # (Auto) 0.1 (0.0-0.4) X10*3/uL Baso # (Auto) 0.0 (0.0-0.2) X10*3/uL Abs Immat Gran (auto) 0.06 H (0.00-0.03) X10*3/uL Absolute Neuts (auto) 11.2 H (2.0-8.3) x10*3/uL Absolute Nucleated RBC 0.000 (0.0-0.012) X10*3/uL Nucleated RBC % (auto) 0.0 (0.0-0.2) /100WBC Sodium 140 (135-145) mmol/L Potassium 4.5 (3.3-5.1) mmol/L Chloride 104 (96-108) mmol/L Carbon Dioxide 24 (22-29) mmol/L Anion Gap 17 (12-20) BUN 19 H (9-16) mg/dL Creatinine 0.87 (0.5-1.4) mg/dL Estim Creat Clear Calc 53.0 Estimated GFR > 60 Random Glucose 111 (60-115) mg/dL Calcium 9.6 (8.4-10.2) mg/dL Urine Color Dark Yellow Urine Appearance Clear Urine pH 5.5 (5.0-9.0) Ur Specific [place] 1.025 (1.005-1.025) Urine Protein Negative (Neg-Trace) mg/dL Urine Glucose (UA) Negative (Negative) mg/dL Urine Ketones 40 (Negative) mg/dL Urine Blood Negative (Negative) Urine Nitrite Negative (Negative) Ur Leukocyte Esterase Trace H (Negative) Urine RBC 3-5 H (0-2) /HPF Urine WBC 0-5 (0-5) /HPF Ur Squamous Epith Cells 0-2 (0-2) /HPF Urine Bacteria None Seen (None Seen) Hyaline Casts 0-2 (0-2) /LPF Discharge Plan Discharge Clinical Impression: Constipation Patient Disposition: Home, Self-Care Instructions: Constipation (ED) Additional Instructions: You have a ball of stool right by or rectum that is contributing to your worsening constipation. You declined digital rectal disimpaction in the emergency department today Instead, you may take MiraLax every night for the next 2 weeks Take lactulose as directed to help with constipation Use an enema once today and then again in 2 days Prescriptions: New mineral oil [Fleet Mineral Oil] Enema 133 ml NC DAILY PRN (Reason: constipation) Qty: 266 0RF Rx Instructions: discard any unused portion polyethylene glycol 3350 [Miralax] 17 gram/dose powder 17 g PO DAILY PRN (Reason: constipation) Qty: 238 0RF lactulose 20 gram/30 mL solution 20 g PO DAILY PRN (Reason: constipation) Qty: 420 0RF No Action (DME) miscellaneous medical supply Misc 0 .Route Qty: 1 0RF Rx Instructions: Power Lift Chair - As directed - to use indefinatly loratadine 10 mg tablet 10 mg PO DAILY PRN (Reason: allergy symptoms) 90 Days Qty: 90 1RF senna 8.6 mg capsule 8.6 mg PO BEDTIME PRN (Reason: constipation) 90 Days Qty: 90 12RF candesartan 32 mg tablet 32 mg PO DAILY Qty: 90 1RF cholecalciferol (vitamin D3) 25 mcg (1,000 unit) capsule 25 mcg PO DAILY 90 Days Qty: 90 3RF benzonatate 100 mg capsule 100 mg PO TID PRN (Reason: cough) 10 Days Qty: 30 1RF alendronate 70 mg tablet 70 mg PO QWEEK 90 Days Qty: 13 1RF albuterol sulfate 90 mcg/actuation HFA aerosol inhaler 1 puff inhalation Q6H Qty: 8.5 3RF acetaminophen 650 mg tablet extended release 650 mg PO Q8H PRN (Reason: pain) 30 Days Qty: 90 3RF zolpidem 10 mg tablet 10 mg PO BEDTIME PRN (Reason: sleep) 30 Days Qty: 30 2RF oxycodone 10 mg tablet 10 mg PO Q8H PRN (Reason: pain) Qty: 7 0RF Rx Instructions: Partial Fill upon patient request. mineral oil [Fleet Mineral Oil] Enema 118 ml NC DAILY Qty: 133 0RF Rx Instructions: discard any unused portion calcium carbonate-vit D3-min 600 mg calcium- 200 unit tablet 1 tab PO DAILY mupirocin 2 % ointment 1 appl topical TID Qty: 22 0RF ibuprofen 600 mg tablet 600 mg PO Q8H PRN (Reason: pain) Qty: 20 0RF silver sulfadiazine [Silvadene] 1 % cream 1 appl topical BID Qty: 25 0RF Rx Instructions: apply a 1.5 mm thickness (DME) Aerochamber MV Spacer See Rx Instructions .Route Qty: 1 0RF Rx Instructions: As directed fluticasone propionate [Flovent HFA] 110 mcg/actuation HFA aerosol inhaler 2 puff inhalation BID 30 Days Qty: 12 5RF atorvastatin 80 mg tablet 80 mg PO BEDTIME 90 Days Qty: 90 1RF guaifenesin [Mucinex] 600 mg tablet extended release 12hr 600 mg PO BID 10 Days Qty: 20 0RF lubiprostone [Amitiza] 24 mcg capsule 24 mcg PO BID Qty: 60 1RF mupirocin 2 % ointment 1 appl topical BID 14 Days Qty: 22 0RF doxycycline monohydrate 100 mg capsule 100 mg PO BID 10 Days Qty: 20 0RF tramadol 50 mg tablet 50 mg PO BID PRN (Reason: pain) 30 Days Qty: 60 0RF gabapentin 300 mg capsule 300 mg PO BID 30 Days Qty: 60 2RF
[2023-04-08 16:18] LABS: Bacteria Urine None Seen (None Seen); Hyaline Casts Urine 0-2 /LPF (0-2); Squamous Epithelial Cell Urine 0-2 /HPF (0-2); WBC Urine 0-5 /HPF (0-5)
--- NOTE | 2023-04-08 16:55 | PC.NURSE ---
unable to obtain IV access at this time for CT w/ contrast. CONNOR William aware and will attempt administering IV using ultrasound guidance.
--- NOTE | 2023-04-08 17:20 | PC.NURSE ---
CONNOR William able to obtain IV access using ultrasound guidance. 20gIV placed in the left AC w/o difficulty.
[2023-04-08 18:00] VITALS: BP 125/64; PULSE 78; RESP 16; TEMP 36.8; O2SAT 96
--- NOTE | 2023-04-08 18:03 | PC.NURSE ---
vss and up to date, nsr on the senior patrol agent. pt verbalizing abdominal pain decreased to 5/10. pt resting comfortably in no apparent distress. respirations even and unlabored. family bedside. call olivera placed within reach.
[2023-04-08] MEDS: iohexoL 350 MG/ML 100 ML INFUS..BTL IV (19:06)
--- NOTE | 2023-04-08 19:34 | PC.NURSE ---
I assumed care of the pt at 1900. Pt is A&Ox4, GCS 15, wolof speaking only with son at the bedside to assist with translation. Pt was able to ambulate independently with strong and even gait. Pt denies pain at this time.
[2023-04-08 20:01] VITALS: BP 124/68; PULSE 78; RESP 20; TEMP 36.6; O2SAT 95
== END 2023-04-08 21:27 | disposition home or self-care (01) ==
PROVIDERS: Emergency Provider Internal Medicine; PCP Internal Medicine
DX: K59.00 Constipation, unspecified (principal); I10 Essential (primary) hypertension; E78.00 Pure hypercholesterolemia, unspecified; I48.0 Paroxysmal atrial fibrillation; Z79.899 Other long term (current) drug therapy
CPT/HCPCS: 36415; 74177; 80048; 81001; 81003; 85025; 99284; Q9967

== ENCOUNTER 2023-05-23 09:23 | Outpatient (REF) | payer OTHER, SELFPAY ==
[2023-05-23 12:05] LABS: Basophils Percent Auto 0.4 % (0-2); Eosinophils Absolute Auto 0.1 X10*3/uL (0.0-0.4); Eosinophils Percent Auto 1.7 % (0-4); Hematocrit 45.4 % (37.0-47.0); Hemoglobin 13.8 g/dl (12.0-16.0); Imm Gran Abs Auto 0.02 X10*3/uL (0.00-0.03); Imm Gran Pct Auto 0.3 % (0.0-0.4); Lymphocytes Absolute Auto 1.3 X10*3/uL (1.2-4.9); Lymphocytes Percent Auto 17.7 % (20-40); MANUAL DIFF FLAG NO; Mean Corpuscular HGB Conc 30.4 g/dl (31.0-35.0); Mean Corpuscular Hemoglobin 26.7 pg (27.0-33.0); Mean Corpuscular Volume 87.8 fL (80.0-98.0); Mean Platelet Volume 11.8 fL (9.4-12.3); Monocytes Absolute Auto 0.5 X10*3/uL (0.1-1.2); Monocytes Percent Auto 6.5 % (2-11); Neutrophils Absolute Auto 5.6 x10*3/uL (2.0-8.3); Neutrophils Percent Auto 73.4 % (45-73); Platelet Count 250 X10*3/uL (160-400); Red Blood Count 5.17 X10*6/uL (4.20-5.50); White Blood Count 7.6 X10*3/uL (4.8-10.8)
[2023-05-23 12:09] LABS: Appearance Urine Clear; Color Urine Yellow; Glucose Urine UA Negative (Negative); Leukocyte Esterase Urine Small (1+) (Negative); Nitrite Urine Negative (Negative); PH 5.5 (5.0-9.0); UMIC TRIGGER UA YES; Urine Blood Negative (Negative); Urine Ketones Negative (Negative); Urine Protein Negative (Neg-Trace)
[2023-05-23 12:20] LABS: Bacteria Urine None Seen (None Seen); Hyaline Casts Urine 0-2 /LPF (0-2); RBC Urine 0-2 /HPF (0-2); Squamous Epithelial Cell Urine 0-2 /HPF (0-2); WBC Urine 0-5 /HPF (0-5)
[2023-05-23 12:44] LABS: Protein/Creatinine Ratio, Ur 0.06 (<0.2); Total Protein Urine Random 8 mg/dL (<12)
[2023-05-23 12:49] LABS: Alanine Aminotransferase 19 U/L (0-31); Albumin Level 4.3 g/dL (3.5-5.0); Alkaline Phosphatase 120 U/L (39-117); Anion Gap 15 (12-20); Aspartate Amino Transferase 25 U/L (5-31); Bilirubin Total 0.4 mg/dL (0.0-1.0); Blood Urea Nitrogen 20 mg/dL (9-16); C Reactive Protein 0.83 mg/dL (< or = 0.50); Calcium 9.3 mg/dL (8.4-10.2); Carbon Dioxide 29 mmol/L (22-29); Chloride 103 mmol/L (96-108); Estimated Glomerular Filt Rate > 60; Glucose Random 104 mg/dL (60-115); Potassium 4.7 mmol/L (3.3-5.1); Rheumatoid Factor < 13.0 IU/mL (<15.0); Sodium 142 mmol/L (135-145); Total Protein 7.2 g/dL (6.5-8.0)
[2023-05-23 12:54] LABS: Erythrocyte Sedimentation Rate 8 MM/HR (0-20)
[2023-05-24 08:26] LABS: HBS Num1 0.49 mIU/mL (0-7.99); HBc Num1 0.07 S/CO (0.00-0.79); HBsAGNum1 0.34 S/CO (0.00-0.99); HIV AB/AG Nonreactive (Nonreactive); HIV Num 1 0.06 S/CO (0.00-0.99); Hepatitis A Antibody IgM 0.22 Index (0-0.79); Hepatitis B Core Antibody Nonreactive (Nonreactive); Hepatitis B Surface Antigen Negative (Negative); ~HepC Num1 0.03 S/CO (0.00-0.79); ~Hepatitis A Antibody IgM Nonreactive (Nonreactive); ~Hepatitis B Surface Antibody NONREACTIVE (Nonreactive); ~Hepatitis C Antibody Nonreactive (Nonreactive)
[2023-05-24 12:53] LABS: Cardiolipin IgG Ab <2.0 GPL-U/mL; Cardiolipin IgM Ab <2.0 MPL-U/mL
[2023-05-24 16:18] LABS: Cyclic Citrullinated Peptide <16 UNITS
[2023-05-24 18:19] LABS: Anti DNA DS Antibody 13 IU/mL; Antibody to SS-A Antigen <1.0 NEG AI (<1.0 NEG); Antibody to SS-B Antigen <1.0 NEG AI (<1.0 NEG); Myeloperoxidase Antibody <1.0 AI; Proteinase 3 PR3 Antibodies <1.0 AI; SM/Ribonucleoprotein Ab <1.0 NEG AI (<1.0 NEG); Smith Protein <1.0 NEG AI (<1.0 NEG)
[2023-05-25 21:24] LABS: TS Negative Control Passed; TS Panel A 6; TS Panel B 5; TS Positive Control Passed; TSpotTB Borderline (Negative)
[2023-05-27 12:53] LABS: Complement C3 142 mg/dL (83-193)
[2023-05-28 05:19] LABS: Angiotensin Converting Enzyme 20 U/L (9-67)
[2023-05-29 16:04] LABS: C1Q Complement Component 9.6 mg/dL (5.0-8.6)
[2023-05-29 23:33] LABS: Beta-2 Glycoprotein IgA <2.0 U/mL (<20.0); Beta-2 Glycoprotein IgG <2.0 U/mL (<20.0); Beta-2 Glycoprotein IgM <2.0 U/mL (<20.0)
[2023-05-30 05:53] LABS: Hexagonal Phase Neutralization Negative (Negative); PTT (LAC) Screen 41 sec (<=40)
== END 2023-05-23 09:24 | disposition home or self-care (01) ==
LOC: HO.LAB 09:23
PROVIDERS: PCP Internal Medicine; Visit Provider Student in an Organized Health Care Education/Training Program
DX: L97.921 Non-pressure chronic ulcer of unspecified part of left lower leg limited to breakdown of skin (principal); L97.911 Non-pressure chronic ulcer of unspecified part of right lower leg limited to breakdown of skin; L97.329 Non-pressure chronic ulcer of left ankle with unspecified severity; L97.319 Non-pressure chronic ulcer of right ankle with unspecified severity; L97.529 Non-pressure chronic ulcer of other part of left foot with unspecified severity; L97.519 Non-pressure chronic ulcer of other part of right foot with unspecified severity; D86.9 Sarcoidosis, unspecified; I77.6 Arteritis, unspecified; Z11.7 Encounter for testing for latent tuberculosis infection; Z11.59 Encounter for screening for other viral diseases; Z72.89 Other problems related to lifestyle; Z79.899 Other long term (current) drug therapy
CPT/HCPCS: 80053; 81001; 82164; 82570; 82595; 83516; 84156; 85025; 85597; 85598; 85613; 85652; 85730; 86021; 86140; 86146; 86147; 86160; 86200; 86225; 86235; 86431; 86481; 86704; 86706; 86709; 86803; 87340; 87389; 99212

== ENCOUNTER 2023-05-23 09:23 | Outpatient (AMB) | payer OTHER, MEDICAID, SELFPAY ==
--- NOTE | 2023-05-23 09:35 | A.OFFVIS_ITS ---
Intake Vital Signs 3 05/23/23 09:37 Height 5 ft 1.97 in Weight 181 lb 14.102 oz BMI 33.3 BP 118/56 L Blood Pressure Location Rt brachial Position Sitting Pulse 76 Pulse Source Pulse Oximeter Temp 97.2 F Temp Source Skin Pulse Oximetry (%) 94 Intake Visit Reasons: Osteoarthritis Intake Note: Pt last seen by Candace 01/12/22, presents today for OA follow up. Has complaints of her feet. She was referred to podiatry by Candace but appt cancelled by pt; she does not remember this. Organ Tuner Required: Yes Organ Tuner Name: Sam Tidwell Accompanied by: Sam Tidwell Allergies morphine [MORPHINE] Allergy (Intermediate, Verified 05/23/23 09:42) VOMITING Penicillins [PENICILLINS] Allergy (Mild, Verified 05/23/23 09:42) RASH oxaprozin [From Daypro] Allergy (Unknown, Verified 05/23/23 09:42) RASH budesonide [Symbicort] Adverse Reaction (Unknown, Verified 05/23/23 09:42) nausea and vomiting Medication List - Last Reconciled 05/23/23 by Fausto Bowens MD acetaminophen ER 650 mg PO Q8H PRN 30 days albuterol sulfate 2.5 mg (3 mL) inhalation QID PRN 30 days albuterol sulfate 90 mcg/actuation 1 puff inhalation Q6H alendronate 70 mg PO QWEEK 3 months atorvastatin 80 mg PO BEDTIME 90 days benzonatate 100 mg PO TID PRN 10 days calcium carbonate-vit D3-min 600 mg calcium- 200 unit 1 tab PO DAILY candesartan 32 mg PO DAILY cholecalciferol (vitamin D3) 25 mcg PO DAILY 90 days doxycycline monohydrate 100 mg PO BID 10 days fluticasone propionate 110 mcg/actuation (Flovent HFA) 2 puffs inhalation BID 30 days gabapentin 300 mg PO BID 30 days guaifenesin ER (Mucinex) 600 mg PO BID 10 days ibuprofen 600 mg PO Q8H PRN inhalational spacing device (Aerochamber MV spacer) As directed lactulose 20 grams (30 mL) PO DAILY PRN loratadine 10 mg PO DAILY PRN 90 days lubiprostone (Amitiza) 24 mcg PO BID mineral oil (Fleet Mineral Oil enema) 133 mL [place] DAILY PRN mineral oil (Fleet Mineral Oil enema) 118 mL VA DAILY miscellaneous medical supply Power Lift Chair - As directed - to use indefinatly mupirocin 2% 1 appl topical TID mupirocin 2% 1 appl topical BID 14 days oxycodone 10 mg PO Q8H PRN polyethylene glycol 3350 (Miralax) 17 grams PO DAILY PRN sennosides (senna) 8.6 mg PO DAILY silver sulfadiazine 1% (Silvadene) 1 appl topical BID tramadol 50 mg PO BID PRN 30 days zolpidem 10 mg PO BEDTIME PRN 30 days HPI HPI Comments 2 History of Present Illness0 Details This is a 77-year-old female who presents for evaluation of bilateral leg ulcers. Per daughter these started about 2 years ago. They occur on the ankles and heels. They common go. The rashes start as a A skin bleb, eventually the skin breaks off, she would have a painful ulcer, then it heals. Recently she has been having painful ulcers in both her heels. She states that she cannot even wear socks due to the severe pain. She denies any significant trauma to the heel. The rashes are not itchy. She is unaware of any self or family history of autoimmune rheumatic disease. She denies any fevers or weight loss. Denies any painful or swollen joints. She was evaluated by vascular surgery and had angiogram and according to the notes, the angiogram was unremarkable and no further intervention was suggested. [facility] Medical History (Updated 05/23/23 @ 10:31 by Fausto Bowens MD) Vasculitis Constipation Osteoporosis Allergic rhinitis Insomnia Osteoarthritis Obesity (BMI 30-39.9) Depression Anxiety Osteopenia Vitamin D deficiency GERD without esophagitis Asthma Paroxysmal atrial fibrillation Pure hypercholesterolemia Benign essential hypertension PAF (paroxysmal atrial fibrillation) Surgical History History of colonoscopy Family History Father CVD (cardiovascular disease) Stroke Mother Medical history unknown Social History Housing: Apartment Alcohol intake: never Patient Tobacco Use Status: Never used Tobacco e-Cigarette/Vaping Use: Never Used Second Hand Smoke Exposure: Yes service: No Current occupational status: disabled Cognitive needs: No Hearing needs: No Vision needs: Yes (glasses) Review of Systems Skin/Breast Reports non-healing lesions, Reports rash, Reports skin pain, Reports skin ulcer and Reports wounds Physical Exam Vital Signs: Last Vital Signs Temp 97.2 F 05/23/23 09:37 Pulse 76 05/23/23 09:37 BP 118/56 L 05/23/23 09:37 Pulse Ox 94 05/23/23 09:37 BMI result Body Mass Index 33.3 Const General: cooperative, healthy appearing and comfortable Nutritional Appearance: obese Orientation/consciousness: patient oriented x3 Limitations: no limitations HEENT Head: Yes normocephalic and Yes atraumatic Mouth: moist mucous membranes Resp Effort & Inspection: normal respiratory effort and able to speak in complete sentences Auscultation: clear to auscultation bilaterally Cardio Rate: regular rate Rhythm: regular rhythm GI Inspection: No distended Palpation (GI): Soft to palpation and nontender Skin Other: Neuro General: patient oriented x3 Extrem Other: No active synovitis Normal nailfold capillaroscopy Results Reviewed Results Reviewed: MR Foot LT W WO - 04/17/23 - Report Status:Signed INDICATION: NON HEALING LT HEEL WOUND OSTEOMYELITIS ? COMPARISON: None ? TECHNIQUE: Multiplanar, multisequence MRI was performed of the left foot without and after the uneventful intravenous contrast administration of 17 mL Dotarem. ? FINDINGS: ? Bone: A posterior plantar calcaneal spur is noted. There is no abnormal T1 marrow replacement or surrounding hyperintense signal on fluid sensitive sequences involving the left hindfoot. Degenerative change with cystic change is noted involving the anterior process of the calcaneus. No osteochondral lesion is noted. Degenerative changes are noted involving the third TMT. ? Soft Tissues: Mild subcutaneous soft tissue swelling is noted along the heel pad. There is thickening of the plantar fascia in keeping with chronic plantar fasciitis. Left ankle joint fluid is present. After intravenous contrast administration, there is mild enhancement of the subcutaneous soft tissues along the heel pad in keeping with cellulitis. No drainable fluid collection is noted. ? ? IMPRESSION: Heel pad thickening with mild enhancement which may represent cellulitis without MRI findings to suggest osteomyelitis of the left hindfoot. ? ? ? Assessment & Plan Assessment & Plan (1) Ulcer of left lower leg: Code(s): L97.929 - Non-pressure chronic ulcer of unspecified part of left lower leg with unspecified severity Qualifiers: Non-pressure ulcer stage: limited to breakdown of skin Qualified Code(s): L97.921 - Non-pressure chronic ulcer of unspecified part of left lower leg limited to breakdown of skin (2) Ulcer of right lower leg: Code(s): L97.919 - Non-pressure chronic ulcer of unspecified part of right lower leg with unspecified severity Qualifiers: Non-pressure ulcer stage: limited to breakdown of skin Qualified Code(s): L97.911 - Non-pressure chronic ulcer of unspecified part of right lower leg limited to breakdown of skin Plan: This is a 77-year-old female who presents for evaluation of recurrent painful ulcers of her ankles and feet. She was evaluated by vascular surgery and angiogram was performed and according to notes it was unremarkable. No further intervention was suggested. Labs showed minimally elevated inflammatory markers. Per patient the lesions improved significantly with prednisone. Will order comprehensive serology to screen for underlying autoimmune rheumatic disease. I referred patient to General surgery for a skin biopsy. Also referred patient to Dermatology. Advised patient to start taking prednisone as prescribed the day after she does the skin biopsy. Follow-up in 1 month Plan I spent 48 minutes reviewing patient's chart, evaluating patient, ordering diagnostic workup, counseling patient and documenting in the chart Orders: Orders 2 Complete Blood Count Auto Diff Today I77.6 - Arteritis, unspecified C Reactive Protein Today I77.6 - Arteritis, unspecified ANCA Vasculitides Today I77.6 - Arteritis, unspecified Rheumatoid Factor Today I77.6 - Arteritis, unspecified Anti DNA DS Antibody Today I77.6 - Arteritis, unspecified Complement C3 Today I77.6 - Arteritis, unspecified Protein Creatinine Ratio, Ur Today I77.6 - Arteritis, unspecified Hepatitis A,B,C Profile Today Z11.59 - Encounter for screening for other viral diseases T Spot TB Today Z11.7 - Encounter for testing for latent tuberculosis infection HIV Ab/Ag Today Z11.59 - Encounter for screening for other viral diseases Other Ref Test - Misc Today I77.6 - Arteritis, unspecified C1Q Complement Component Today I77.6 - Arteritis, unspecified Cardiolipin Antibodies Today L97.929 - Non-pressure chronic ulcer of unspecified part of left lower leg with unspecified severity Comprehensive Met. Panel Today I77.6 - Arteritis, unspecified Erythrocyte Sedimentation Rate Today I77.6 - Arteritis, unspecified Cyclic Citrullinated Peptide Today I77.6 - Arteritis, unspecified Anti Extractable Nuclear Ag Today I77.6 - Arteritis, unspecified Complement C4 Today I77.6 - Arteritis, unspecified Sjogren's Antibodies Today I77.6 - Arteritis, unspecified UA w Microscopic Today I77.6 - Arteritis, unspecified Cryoglobulin Today I77.6 - Arteritis, unspecified Beta-2 Glycoprotein Antibody Today L97.929 - Non-pressure chronic ulcer of unspecified part of left lower leg with unspecified severity Lupus Anticoagulant Panel Today L97.929 - Non-pressure chronic ulcer of unspecified part of left lower leg with unspecified severity Angiotensin Converting Enzyme Today D86.9 - Sarcoidosis, unspecified Referrals 2 Dermatology Referral L97.919 - Non-pressure chronic ulcer of unspecified part of right lower leg with unspecified severity, L97.929 - Non-pressure chronic ulcer of unspecified part of left lower leg with unspecified severity General Surgery Referral L97.919 - Non-pressure chronic ulcer of unspecified part of right lower leg with unspecified severity Medications: New 2 prednisone 30 mg (3 x 10 mg) PO DAILY 42 tabs 0RF Coding Level of Care Code Est Pt Level 5 (71784) Diagnoses Skin ulcer of left lower leg, limited to breakdown of skin L97.921 Non-pressure ulcer stage: limited to breakdown of skin Skin ulcer of right lower leg, limited to breakdown of skin L97.911 Non-pressure ulcer stage: limited to breakdown of skin
[2023-05-23 09:37] VITALS: BP 118/56; PULSE 76; TEMP 36.2; O2SAT 94; BMI 33.3
== END 2023-05-23 10:19 | disposition home or self-care (01) ==
PROVIDERS: PCP Internal Medicine; Visit Provider Student in an Organized Health Care Education/Training Program
DX: L97.921 Non-pressure chronic ulcer of unspecified part of left lower leg limited to breakdown of skin (principal); L97.911 Non-pressure chronic ulcer of unspecified part of right lower leg limited to breakdown of skin
CPT/HCPCS: 99215

== ENCOUNTER 2023-05-29 14:44 | Outpatient (AMB) | payer OTHER, MEDICAID, SELFPAY ==
--- NOTE | 2023-05-29 14:47 | A.OFFVIS_ITS ---
Intake Vital Signs 05/29/23 14:48 Height 5 ft 1 in Weight 182 lb 15.739 oz BMI 34.6 BP 137/72 Blood Pressure Location Lt brachial Position Sitting Pulse 81 Pulse Source Pulse Oximeter Pulse Oximetry (%) 96 Oxygen Delivery Method Room Air Intake Visit Reasons: Non-pressure chronic ulcer, Bx Rt lower leg Intake Note: Pt presents to the office today for a non pressure chronic ulcer. Pt states they come and go but are getting worse. She noticed they started about 2 years ago. Pt states they are very painful. Pt states the one behind her right ankle has a bloody discharge. Pt denies any fevers or chills. Allergies morphine [MORPHINE] Allergy (Intermediate, Verified 05/29/23 14:50) VOMITING Penicillins [PENICILLINS] Allergy (Mild, Verified 05/29/23 14:50) RASH oxaprozin [From Daypro] Allergy (Unknown, Verified 05/29/23 14:50) RASH budesonide [Symbicort] Adverse Reaction (Unknown, Verified 05/29/23 14:50) nausea and vomiting Medication List - Last Reconciled 05/29/23 by Yannick Carmona MD acetaminophen ER 650 mg PO Q8H PRN 30 days albuterol sulfate 2.5 mg (3 mL) inhalation QID PRN 30 days albuterol sulfate 90 mcg/actuation 1 puff inhalation Q6H alendronate 70 mg PO QWEEK 3 months atorvastatin 80 mg PO BEDTIME 90 days benzonatate 100 mg PO TID PRN 10 days calcium carbonate-vit D3-min 600 mg calcium- 200 unit 1 tab PO DAILY candesartan 32 mg PO DAILY cholecalciferol (vitamin D3) 25 mcg PO DAILY 90 days doxycycline monohydrate 100 mg PO BID 10 days fluticasone propionate 110 mcg/actuation (Flovent HFA) 2 puffs inhalation BID 30 days gabapentin 300 mg PO BID 30 days guaifenesin ER (Mucinex) 600 mg PO BID 10 days ibuprofen 600 mg PO Q8H PRN inhalational spacing device (Aerochamber MV spacer) As directed lactulose 20 grams (30 mL) PO DAILY PRN loratadine 10 mg PO DAILY PRN 90 days lubiprostone (Amitiza) 24 mcg PO BID mineral oil (Fleet Mineral Oil enema) 133 mL [place] DAILY PRN mineral oil (Fleet Mineral Oil enema) 118 mL [place] DAILY miscellaneous medical supply Power Lift Chair - As directed - to use indefinatly mupirocin 2% 1 appl topical TID mupirocin 2% 1 appl topical BID 14 days oxycodone 10 mg PO Q8H PRN polyethylene glycol 3350 (Miralax) 17 grams PO DAILY PRN prednisone 30 mg (3 x 10 mg) PO DAILY sennosides (senna) 8.6 mg PO DAILY silver sulfadiazine 1% (Silvadene) 1 appl topical BID tramadol 50 mg PO BID PRN 30 days zolpidem 10 mg PO BEDTIME PRN 30 days HPI Non-pressure chronic ulcer, Bx Rt lower leg HPI Details 77 -Year old female referred for an ulce r on the right lower leg. She says that she has had different ulcers on both lower legs for the past 2-3 years. She would see these on different areas of her lower legs, usually near the ankle. She says that these would dry but she would notice this on different areas thereafter. She describes pain whenever these ulcers happen. She denies any trauma on the areas concerned. She does state that at some point about 2 years ago she had a bug bite while in [place] on the right ankle.. [facility] Medical History Vasculitis Constipation Osteoporosis Allergic rhinitis Insomnia Osteoarthritis Obesity (BMI 30-39.9) Depression Anxiety Osteopenia Vitamin D deficiency GERD without esophagitis Asthma Paroxysmal atrial fibrillation Pure hypercholesterolemia Benign essential hypertension PAF (paroxysmal atrial fibrillation) Surgical History History of colonoscopy Family History Father CVD (cardiovascular disease) Stroke Mother Medical history unknown Social History Housing: Apartment Alcohol intake: never Patient Tobacco Use Status: Never used Tobacco e-Cigarette/Vaping Use: Never Used Second Hand Smoke Exposure: Yes service: No Current occupational status: disabled Cognitive needs: No Hearing needs: No Vision needs: Yes (glasses) Review of Systems Const Denies chills and Denies fever(s) Card Denies chest pain, Denies dyspnea and Denies dyspnea on exertion Resp Denies cough, Denies dyspnea and Denies dyspnea on exertion GI Denies hematochezia and Denies change in bowel habits Denies hematuria Musc Denies back pain and Denies limited range of motion Neuro Denies focal weakness and Denies convulsions Psych Denies depression and Denies mood swings Physical Exam Vital Signs: BMI result Body Mass Index 34.6 Const General: comfortable and no acute distress Orientation/consciousness: patient oriented x3 Neck Neck: Yes no lymphadenopathy Resp Auscultation: clear to auscultation bilaterally Cardio Rhythm: regular rhythm GI Palpation (GI): Soft to palpation, nontender and no guarding Neuro General: patient oriented x3 Extrem Other: Superficial ulcers on the right ankle, each about 2 cm, 1 noted on the anterior aspect and 1 on the lateral area. These are dry almost reepithelialized She has other healed ulcers on the left lower leg as well as on the back of both ankle areas. she does have varicosities on the thigh area and just below the knees Assessment & Plan Assessment & Plan (1) Ulcer of left lower leg: Code(s): L97.929 - Non-pressure chronic ulcer of unspecified part of left lower leg with unspecified severity Qualifiers: Non-pressure ulcer stage: limited to breakdown of skin Qualified Code(s): L97.921 - Non-pressure chronic ulcer of unspecified part of left lower leg limited to breakdown of skin Plan: This ulcers on both left and right lower legs around the ankles. This has been occurring for the past 2 years. This would heal and would recur in other areas of the leg. Current exam shows that these ulcers are almost completely reepithelialized without any discharge or cellulitis. These appear to be eczematous in appearance. I would not proceed with an open biopsy at this time as there is the likelihood of poor healing. I would defer to an opinion by the lard tub washer prior to doing and biopsy. She says that she is being referred to a lard tub washer and we will assist her with this. They are comfortable with the plan above. They can follow up on a p.r.n. basis. (2) Ulcer of right lower leg: Code(s): L97.919 - Non-pressure chronic ulcer of unspecified part of right lower leg with unspecified severity Qualifiers: Non-pressure ulcer stage: limited to breakdown of skin Qualified Code(s): L97.911 - Non-pressure chronic ulcer of unspecified part of right lower leg limited to breakdown of skin Coding Level of Care Code New Pt Level 3 (20356) Diagnoses Skin ulcer of left lower leg, limited to breakdown of skin L97.921 Non-pressure ulcer stage: limited to breakdown of skin Skin ulcer of right lower leg, limited to breakdown of skin L97.911 Non-pressure ulcer stage: limited to breakdown of skin
[2023-05-29 14:48] VITALS: BP 137/72; PULSE 81; O2SAT 96; BMI 34.6
== END 2023-05-29 15:19 | disposition home or self-care (01) ==
PROVIDERS: PCP Internal Medicine; Visit Provider Surgery
DX: L97.921 Non-pressure chronic ulcer of unspecified part of left lower leg limited to breakdown of skin (principal); L97.911 Non-pressure chronic ulcer of unspecified part of right lower leg limited to breakdown of skin
CPT/HCPCS: 99203

== ENCOUNTER → 2023-05-29 14:44 | Outpatient (BNVA) | payer OTHER, MEDICAID, SELFPAY | PROVIDERS: PCP Internal Medicine; Visit Provider Surgery | DX: L97.921 Non-pressure chronic ulcer of unspecified part of left lower leg limited to breakdown of skin (principal); L97.911 Non-pressure chronic ulcer of unspecified part of right lower leg limited to breakdown of skin | CPT/HCPCS: 99202 ==

== ENCOUNTER 2023-06-03 09:00 | Outpatient (AMB) | payer OTHER, MEDICAID, SELFPAY ==
[2023-06-03 09:04] VITALS: BP 140/86; PULSE 85; O2SAT 94; BMI 34.1
--- NOTE | 2023-06-03 09:04 | A.OFFPC_ITS ---
Vital Signs 06/03/23 09:04 Height 5 ft 1 in Weight 180 lb 6 oz BMI 34.1 BP 140/86 H Blood Pressure Location Lt brachial Position Sitting Pulse 85 Pulse Source Pulse Oximeter Pulse Oximetry (%) 94 Oxygen Delivery Method Room Air Intake Visit Reasons: 3 month f/u Price Analyst Required: No Accompanied by: Self / Same As Patient Allergies morphine [MORPHINE] Allergy (Intermediate, Verified 06/03/23 11:47) VOMITING Penicillins [PENICILLINS] Allergy (Mild, Verified 06/03/23 11:47) RASH oxaprozin [From Daypro] Allergy (Unknown, Verified 06/03/23 11:47) RASH budesonide [Symbicort] Adverse Reaction (Unknown, Verified 06/03/23 11:47) nausea and vomiting Medication List - Last Reconciled 06/03/23 by Milton Ackerman MD acetaminophen ER 650 mg PO Q8H PRN 30 days albuterol sulfate 2.5 mg (3 mL) inhalation QID PRN 30 days albuterol sulfate 90 mcg/actuation 1 puff inhalation Q6H alendronate 70 mg PO QWEEK 3 months atorvastatin 80 mg PO BEDTIME 90 days benzonatate 100 mg PO TID PRN 10 days calcium carbonate-vit D3-min 600 mg calcium- 200 unit 1 tab PO DAILY candesartan 32 mg PO DAILY cholecalciferol (vitamin D3) 25 mcg PO DAILY 90 days doxycycline monohydrate 100 mg PO BID 10 days fluticasone propionate 110 mcg/actuation (Flovent HFA) 2 puffs inhalation BID 30 days gabapentin 100 mg PO BID 30 days guaifenesin ER (Mucinex) 600 mg PO BID 10 days ibuprofen 600 mg PO Q8H PRN inhalational spacing device (Aerochamber MV spacer) As directed lactulose 20 grams (30 mL) PO DAILY PRN loratadine 10 mg PO DAILY PRN 90 days lubiprostone (Amitiza) 24 mcg PO BID mineral oil (Fleet Mineral Oil enema) 133 mL ND DAILY PRN mineral oil (Fleet Mineral Oil enema) 118 mL ND DAILY mirtazapine 15 mg PO BEDTIME 90 days miscellaneous medical supply Power Lift Chair - As directed - to use indefinatly mupirocin 2% 1 appl topical TID mupirocin 2% 1 appl topical BID 14 days oxycodone 10 mg PO Q8H PRN polyethylene glycol 3350 (Miralax) 17 grams PO DAILY PRN prednisone 30 mg (3 x 10 mg) PO DAILY sennosides (senna) 8.6 mg PO DAILY silver sulfadiazine 1% (Silvadene) 1 appl topical BID tramadol 50 mg PO BID PRN 30 days zolpidem 10 mg PO BEDTIME PRN 30 days Tobacco use date assessed: 06/03/23 Fall risk assessment: No Falls in past year Last assessed Fall Risk: 06/03/23 Dental Screening Dental Screen Date: 06/03/23 Did you have a dental visit in the last 12 months?: Yes Did you have a dental problem in the last 6 months where you did not have access to dental care?: No Was dental information given to patient?: Patient has dentist HPI 3 month f/u HPI Details Patient comes in today for her follow up visit States that she continues to have recurrent painful sores and ulcers form on her lower legs and feet She is still following up with the wound clinic regularly and was also recently seen by rheumatology, who has referred him to dermatology for further evaluation and possible skin biopsy if appropriate She was recently seen by surgery and they deferred her biopsy to dermatology as they are concerned that doing a skin biopsy at this time will risk patient getting another non-healing wound She is scheduled to be seen by Dr. Sandoval sometime in August 2023 Patient states that she has been feeling depressed lately and would like to be started back on her previous depression medication She continues to experience increased pain in her lower extremities and states that her current Rx are not helping enough Was on Gabapentin 300 mg BID but she stopped taking this as it was causing her to become too sedated; also reports experiencing headaches when her dose was raised and would like to have her dose lowered again if possible She denies any fever, headaches or dizziness Denies any chest pains, no increased SOB No nausea/vomiting, no abdominal pain No change in bowel habits noted Needs a couple of her Rx refilled Had some follow up labs done a couple of weeks ago - to discuss her results [facility] Medical History Vasculitis Constipation Osteoporosis Allergic rhinitis Insomnia Osteoarthritis Obesity (BMI 30-39.9) Depression Anxiety Osteopenia Vitamin D deficiency GERD without esophagitis Asthma Paroxysmal atrial fibrillation Pure hypercholesterolemia Benign essential hypertension PAF (paroxysmal atrial fibrillation) Surgical History History of colonoscopy Family History Father CVD (cardiovascular disease) Stroke Mother Medical history unknown Social History Housing: Apartment Alcohol intake: never Patient Tobacco Use Status: Never used Tobacco e-Cigarette/Vaping Use: Never Used Second Hand Smoke Exposure: Yes service: No Current occupational status: disabled Cognitive needs: No Hearing needs: No Vision needs: Yes (glasses) Questionnaire PHQ-9 Over the last 2 weeks, how often have you been bothered by any of the following problems? 1. Little interest or pleasure in doing things: not at all 2. Feeling down, depressed, or hopeless: several days 3. Trouble falling or staying asleep, or sleeping too much: more than half the days 4. Feeling tired or having little energy: nearly every day 5. Poor appetite or overeating: not at all 6. Feeling bad about yourself - or that you are a failure or have let yourself or your family down: not at all 7. Trouble concentrating on things, such as reading the newspaper or watching television: not at all 8. Moving or speaking so slowly that other people could have noticed. Or the opposite - being so fidgety or restless that you have been moving around a lot more than usual: several days 9. Thoughts that you would be better off or of hurting yourself in some way: not at all Total score: 7 Depression Screening Interpretation: Positive Depression Screening Follow-up: Existing condition and In treatment Depression Screening Done: Yes 28637 - PHQ-9 Billing: Yes Source: Developed by Drs. Abisai Peñaloza, Celina Simeon, Ayad Briceno and colleagues, with an educational elif from [employer]. Thrive Questionnaire Date Thrive assessed: 06/03/23 I am a: Patient What is your living situation today?: I have a steady place to live Within the past 12 months, did the food you bought not last and you didn't have the money to get more?: Never true Within the past 12 months, did you worry whether your food would run out before you got money to buy more?: Never true Do you have trouble paying for medicines?: No Do you have trouble getting transportation to medical appointments?: No Do you have trouble paying your heating and electricity bill?: No Do you have trouble taking care of your child, family member or friend?: No Do you have trouble with day-to-day activities such as bathing, preparing meals, shopping, managing finances, etc.?: No Are you currently unemployed and looking for a job?: No Are you interested in more education?: No Please select the resources that you would like help with: None Currently or been in a relationship where the following occur: no concerns reported AUDIT C Alcohol Use Questionnaire (AUDIT-C) 1. How often do you have a drink containing alcohol?: Never 3. How often do you have six or more drinks on one occasion?: Never Total Score: 0 Score Reviewed/Action Taken: Yes FARIDEH-7 AMB Questionnaire FARIDEH-7 Date FARIDEH - 7 assessed: 06/03/23 Feeling nervous, anxious, or on edge: 0 = Not at all Not being able to stop or control worryin = Not at all Worrying too much about different things: 0 = Not at all Trouble relaxin = Not at all Being so restless that it is hard to sit still: 0 = Not at all Becoming easily annoyed or irritable: 0 = Not at all Feeling afraid as if something awful might happen: 0 = Not at all Total FARIDEH-7 score (0-4 normal; 5-9 mild; 10-14 moderate; 15-21 severe): 0 Source: Developed by Drs. Abisai Peñaloza, Celina iSmeon, Ayad Briceno and colleagues, with an educational elif from [employer]. Review of Systems Const Denies chills, Reports difficulty sleeping (due to pain), Reports fatigue, Denies fever(s) and Denies headache(s) ENT Denies dysphagia, Denies dizziness, Denies otalgia, Denies headache(s), Denies odynophagia and Denies sore throat Card Denies chest pain, Denies palpitations and Reports dyspnea on exertion (mild) Resp Denies chest congestion, Denies cough, Reports dyspnea on exertion (mild) and Denies wheezing GI Denies abdominal pain, Reports constipation (on and off), Denies dysphagia, Denies heartburn, Denies diarrhea, Denies nausea, Denies odynophagia and Denies vomiting Denies difficulty voiding, Denies nocturia and Denies dysuria Musc Reports arthralgias (involving multiple joints, especially her knees) Skin/Breast Reports skin ulcer ((+) multiple painful sores/ulcers on both lower legs distally and on ankles) Neuro Denies dizziness and Denies headache(s) Endo Reports fatigue and Denies palpitations Aller/Immun Denies wheezing Physical exam (Primary Care) Vital Signs: Last Vital Signs Pulse 85 06/03/23 09:04 BP 140/86 H 06/03/23 09:04 Pulse Ox 94 06/03/23 09:04 Oxygen Delivery Method Room Air 06/03/23 09:04 BMI result Body Mass Index 34.1 Tobacco/Smoking Status: Tobacco use Status Tobacco use date assessed 06/03/23 06/03/23 09:06 Patient Tobacco Use Status Never used Tobacco 06/03/23 09:06 e-Cigarette/Vaping Use Never Used 06/03/23 09:06 PHQ-9: PHQ-9 Score PHQ-9: Total score 7 06/03/23 09:43 Depression Screening Interpretation: Positive Depression Screening Follow-up: Existing condition and In treatment Thrive Assessment: Date of Thrive Assessment Date Thrive assessed 06/03/23 06/03/23 09:06 Currently or been in a relationship where the following occur: no concerns repor shraddha Const General: no acute distress and alert HENMT Throat: Yes posterior oropharynx normal and Yes tonsils normal (no TP congestion) Neck Neck: Yes no lymphadenopathy and Yes supple Resp Auscultation: clear to auscultation bilaterally, no rales, no rhonchi, no wheezes and diminished lung sounds (slightly) bilateral Cardio Rate: regular rate Rhythm: regular rhythm Heart sounds: no murmurs GI Palpation (GI): Soft to palpation and nontender Auscultation: normal bowel sounds Back/Spine/Pelvis Thoracic/Lumbar Spine: No lumbar spinal tenderness Skin Other: (+) multiple, small, non-draining ulcers noted over the distal half of both lower legs, including around the ankle areas and over the heels bilaterally Extrem General: Yes no clubbing, cyanosis or edema Results Reviewed Results Reviewed: Laboratory Tests 05/23/23 05/23/23 05/23/23 11:05 11:14 11:14 WBC Hgb Hct Plt Count Sodium 142 Potassium 4.7 Creatinine 0.90 Estimated GFR > 60 Random Glucose 104 Calcium 9.3 AST 25 ALT 19 Angiotensin Convert Enz 20 Ur Specific [place] 1.020 Urine Protein Negative Urine Glucose (UA) Negative Urine Blood Negative 05/23/23 Unknown WBC 7.6 Hgb 13.8 Hct 45.4 Plt Count 250 Sodium Potassium Creatinine Estimated GFR Random Glucose Calcium AST ALT Angiotensin Convert Enz Ur Specific [place] Urine Protein Urine Glucose (UA) Urine Blood Assessment and Plan Assessment & Plan (1) Ulcers of both lower extremities: Code(s): L97.919 - Non-pressure chronic ulcer of unspecified part of right lower leg with unspecified severity; L97.929 - Non-pressure chronic ulcer of unspecified part of left lower leg with unspecified severity Qualifiers: Non-pressure ulcer stage: unspecified non-pressure ulcer stage Qualified Code(s): L97.919 - Non-pressure chronic ulcer of unspecified part of right lower leg with unspecified severity; L97.929 - Non-pressure chronic ulcer of unspecified part of left lower leg with unspecified severity Plan: Follow up with the wound clinic as scheduled She was referred to and seen by vascular surgery at [facility] back in March 2023 for further evaluation and management Was advised that based on her previous work ups, her left lower extremity ulcers are non-vascular in origin; was recommended to undergo angiogram of the right lower extremity, which reportedly came out negative Was then recommended vasculitis work ups, which were done by rheumatology recently and most of her work ups were negative She has been referred to dermatology for consideration for skin biopsy and she is scheduled to be seen by Dr. Sandoval in August 2023 (2) Pure hypercholesterolemia: Code(s): E78.00 - Pure hypercholesterolemia, unspecified Plan: Results of her labs done a couple of weeks ago reviewed and discussed with patient - advised that her labs done recently were non-fasting and did not include her cholesterol levels, which were at goal when they were last checked in July 2022 Reinforced low cholesterol diet Continue Atorvastatin 80 mg QD Will recheck her labs and fasting lipids in 3 months for follow-up (3) Benign essential hypertension: Code(s): I10 - Essential (primary) hypertension Plan: Reinforced low-sodium diet - goal is systolic BP of at least 140 mm or less Continue Candesartan 32 mg QD; HCTZ was previously discontinued (4) Paroxysmal atrial fibrillation: Code(s): I48.0 - Paroxysmal atrial fibrillation Plan: Patient currently remains in sinus rhythm and is asymptomatic Follow up with Cardiology as scheduled (5) Asthma: Code(s): J45.909 - Unspecified asthma, uncomplicated Qualifiers: Asthma complication type: uncomplicated Asthma persistence: persistent Asthma severity: moderate Qualified Code(s): J45.40 - Moderate persistent asthma, uncomplicated Plan: Stable/controlled lately since her Flovent HFA was increased to 2 inhalations BID at her last visit Continue Flovent HFA 110 mcg 2 inhalations BID and Albuterol HFA 1 to 2 inhalations Q 6 hours PRN; states that she uses her nebulizer only when needed (6) Allergic rhinitis: Code(s): J30.9 - Allergic rhinitis, unspecified Qualifiers: Allergic rhinitis seasonality: seasonal Allergic rhinitis trigger: pollen Qualified Code(s): J30.1 - Allergic rhinitis due to pollen Plan: Continue Loratadine 10 mg QD PRN (7) GERD without esophagitis: Code(s): K21.9 - Gastro-esophageal reflux disease without esophagitis Plan: Dietary restrictions reinforced Continue Omeprazole 40 mg QD (8) Vitamin D deficiency: Code(s): E55.9 - Vitamin D deficiency, unspecified Plan: Continue Vitamin D3 1000 units QD (9) Osteoporosis: Code(s): M81.0 - Age-related osteoporosis without current pathological fracture Qualifiers: Osteoporosis type: unspecified Presence of current pathological fracture: without current pathological fracture Qualified Code(s): M81.0 - Age- related osteoporosis without current pathological fracture Plan: Repeat BMD done in July 2022 revealed that patient's BMD has declined significantly from her previous scan in July 2017, especially in the left femur, which has a 23.2% decrease from previous Her A/P spine BMD is most unchanged Her lowest T-score is now at -3.2 in the femoral neck Considering that she has been on Alendronate 70 mg Q week for years (unclear when she actually started taking it but most likely > 5 years, will have patient finish up her current supply of Alendronate, then will D/C the Rx Will also consider having her see endocrinology for this once her current issues with her lower extremity ulcers are under better control (10) Constipation: Code(s): K59.00 - Constipation, unspecified Qualifiers: Constipation type: unspecified constipation type Qualified Code(s): K59.00 - Constipation, unspecified Plan: Reinforced increased oral fluids and dietary fiber Continue Amitiza 24 mcg BID (11) Primary osteoarthritis involving multiple joints: Code(s): M89.49 - Other hypertrophic osteoarthropathy, multiple sites Plan: Mostly involving her right knee -? has received cortisone injection from Orthopedics in the past without any significant relief Have advised again that physical therapy can help with her knee pain if her symptoms get worse -? patient does not want to pursue this for now; states that she has been able to manage her knee pain so far Continue Tramadol 50 mg TID PRN; per request, will try lowering her Gabapentin back to 100 mg BID Follow-up with Orthopedics as scheduled or as needed (12) Insomnia: Code(s): G47.00 - Insomnia, unspecified Qualifiers: Insomnia type: unspecified Qualified Code(s): G47.00 - Insomnia, unspecified Plan: Sleep hygiene reinforced Continue Zolpidem 10 mg Q HS PRN - Rx refilled (13) Anxiety: Code(s): F41.9 - Anxiety disorder, unspecified Plan: Continue Lorazepam 0.5 mg 2 to 3 times a day as needed Mirtazapine was also helping but she stopped taking this recently (14) Depression: Code(s): F32.9 - Major depressive disorder, single episode, unspecified Qualifiers: Active/Remission status: currently active Depression Type: major depressive disorder Major depression episode severity: unspecified Major depression recurrence: recurrent Qualified Code(s): F33.9 - Major depressive disorder, recurrent, unspecified Plan: Per request, will start patient back on Mirtazapine 15 mg Q HS (15) Obesity (BMI 30-39.9): Code(s): E66.9 - Obesity, unspecified Plan: Reinforced diet/exercise as tolerated/lose weight Plan Follow up in 3 months Orders: Orders Lipid Panel 3 Months E78.00 - Pure hypercholesterolemia, unspecified TSH reflex Free T4 3 Months E78.00 - Pure hypercholesterolemia, unspecified Comprehensive Andrews. Panel Fast 3 Months E78.00 - Pure hypercholesterolemia, unspecified UA CC w/rflx Micro + Cult 3 Months R30.0 - Dysuria Vitamin D 25-OH Total 3 Months E55.9 - Vitamin D deficiency, unspecified Complete Blood Count Auto Diff 3 Months I10 - Essential (primary) hypertension Medications: New mirtazapine 15 mg PO BEDTIME 90 tabs 1RF 90 days Changed From gabapentin 300 mg PO BID 30 days 60 caps 2RF To gabapentin 100 mg PO BID 60 caps 2RF 30 days Refilled tramadol 50 mg PO BID PRN 60 tabs 0RF pain 30 days M19.90 - Unspecified osteoarthritis, unspecified site zolpidem 10 mg PO BEDTIME PRN 30 tabs 2RF sleep 30 days Coding Level of Care Code Est Pt Level 4 (40611) Diagnoses Ulcers of both lower extremities, unspecified ulcer stage L97.919; L97.929 Non-pressure ulcer stage: unspecified non-pressure ulcer stage Pure hypercholesterolemia E78.00 Benign essential hypertension I10 Paroxysmal atrial fibrillation I48.0 Moderate persistent asthma without complication J45.40 Asthma complication type: uncomplicated Asthma persistence: persistent Asthma severity: moderate Seasonal allergic rhinitis due to pollen J30.1 Allergic rhinitis seasonality: seasonal Allergic rhinitis trigger: pollen GERD without esophagitis K21.9 Vitamin D deficiency E55.9 Osteoporosis without current pathological fracture, unspecified osteoporosis type M81.0 Osteoporosis type: unspecified Presence of current pathological fracture: without current pathological fracture Constipation, unspecified constipation type K59.00 Constipation type: unspecified constipation type Primary osteoarthritis involving multiple joints M89.49 Insomnia, unspecified type G47.00 Insomnia type: unspecified Anxiety F41.9 Episode of recurrent major depressive disorder, unspecified depression episode severity F33.9 Active/Remission status: currently active Depression Type: major depressive disorder Major depression episode severity: unspecified Major depression recurrence: recurrent Obesity (BMI 30-39.9) E66.9
== END 2023-06-03 09:51 | disposition home or self-care (01) ==
PROVIDERS: PCP Internal Medicine; Visit Provider Internal Medicine
DX: I48.0 Paroxysmal atrial fibrillation (principal); L97.919 Non-pressure chronic ulcer of unspecified part of right lower leg with unspecified severity; L97.929 Non-pressure chronic ulcer of unspecified part of left lower leg with unspecified severity; F33.9 Major depressive disorder, recurrent, unspecified; E78.00 Pure hypercholesterolemia, unspecified; I10 Essential (primary) hypertension; J45.40 Moderate persistent asthma, uncomplicated; J30.1 Allergic rhinitis due to pollen; K21.9 Gastro-esophageal reflux disease without esophagitis; E66.9 Obesity, unspecified; E55.9 Vitamin D deficiency, unspecified; M81.0 Age-related osteoporosis without current pathological fracture
CPT/HCPCS: 99214

== ENCOUNTER 2023-06-21 11:35 | Outpatient (AMB) | payer OTHER, MEDICAID, SELFPAY ==
--- NOTE | 2023-06-21 11:38 | A.OFFVIS_ITS ---
Intake Vital Signs 3 06/21/23 11:46 Height 5 ft 1 in Weight 184 lb 1.376 oz BMI 34.8 BP 112/82 Blood Pressure Location Lt brachial Position Sitting Pulse 79 Pulse Source Pulse Oximeter Temp 97 F Temp Source Skin Pulse Oximetry (%) 96 Oxygen Delivery Method Room Air Intake Visit Reasons: skin ulcer Intake Note: Pt last seen 05/23/23, presents today for follow up and test results. Evaluated by Derm and general surgery Reports dizziness while taking gabapentin. Stopped taking it. Supervisor Aircraft Cleaning Required: Yes Supervisor Aircraft Cleaning Language: Military Communications Specialist Name: daughter Information Interpreted: clinical only Accompanied by: Daughter Allergies morphine [MORPHINE] Allergy (Intermediate, Verified 06/21/23 11:39) VOMITING Penicillins [PENICILLINS] Allergy (Mild, Verified 06/21/23 11:39) RASH oxaprozin [From Daypro] Allergy (Unknown, Verified 06/21/23 11:39) RASH budesonide [Symbicort] Adverse Reaction (Unknown, Verified 06/21/23 11:39) nausea and vomiting Medication List - Last Reconciled 06/21/23 by Fausto Bowens MD acetaminophen ER 650 mg PO Q8H PRN 30 days albuterol sulfate 2.5 mg (3 mL) inhalation QID PRN 30 days albuterol sulfate 90 mcg/actuation 1 puff inhalation Q6H alendronate 70 mg PO QWEEK 3 months atorvastatin 80 mg PO BEDTIME 90 days calcium carbonate-vit D3-min 600 mg calcium- 200 unit 1 tab PO DAILY candesartan 32 mg PO DAILY cholecalciferol (vitamin D3) 25 mcg PO DAILY 90 days fluticasone propionate 110 mcg/actuation (Flovent HFA) 2 puffs inhalation BID 30 days ibuprofen 600 mg PO Q8H PRN inhalational spacing device (Aerochamber MV spacer) As directed lactulose 20 grams (30 mL) PO DAILY PRN lidocaine 5% 1 appl topical TID PRN loratadine 10 mg PO DAILY PRN 90 days lubiprostone (Amitiza) 24 mcg PO BID mineral oil (Fleet Mineral Oil enema) 133 mL [place] DAILY PRN mirtazapine 15 mg PO BEDTIME 90 days miscellaneous medical supply Power Lift Chair - As directed - to use indefinatly mupirocin 2% 1 appl topical TID oxycodone 10 mg PO Q8H PRN polyethylene glycol 3350 (Miralax) 17 grams PO DAILY PRN prednisone Take 2 tabs by mouth daily for 2 weeks then 1 tab daily for 2 weeks then stop NS prednisone 30 mg (3 x 10 mg) PO DAILY sennosides (senna) 8.6 mg PO DAILY silver sulfadiazine 1% (Silvadene) 1 appl topical BID tramadol 50 mg PO BID PRN 30 days zolpidem 10 mg PO BEDTIME PRN 30 days HPI HPI Comments 2 History of Present Illness0 Details Patient returns for follow-up. She was evaluated by General surgery and no skin biopsy was performed as it was perceived that there would be a risk of for wound healing. She stated that she was evaluated by wire drawing machine operator yesterday and no skin biopsy was performed, was advised to wear compression socks and use a topical steroid cream. Patient just started taking prednisone 30 mg daily yesterday Initial history: This is a 77-year-old female who presents for evaluation of bilateral leg ulcers. Per daughter these started about 2 years ago. They occur on the ankles and heels. They common go. The rashes start as a A skin bleb, eventually the skin breaks off, she would have a painful ulcer, then it heals. Recently she has been having painful ulcers in both her heels. She states that she cannot even wear socks due to the severe pain. She denies any significant trauma to the heel. The rashes are not itchy. She is unaware of any self or family history of autoimmune rheumatic disease. She denies any fevers or weight loss. Denies any painful or swollen joints. She was evaluated by vascular surgery and had angiogram and according to the notes, the angiogram was unremarkable and no further intervention was suggested. [facility] Medical History (Updated 06/21/23 @ 12:03 by Fausto Bowens MD) Constipation Osteoporosis Allergic rhinitis Insomnia Osteoarthritis Obesity (BMI 30-39.9) Depression Anxiety Osteopenia Vitamin D deficiency GERD without esophagitis Asthma Paroxysmal atrial fibrillation Pure hypercholesterolemia Benign essential hypertension PAF (paroxysmal atrial fibrillation) Surgical History History of colonoscopy Family History Father CVD (cardiovascular disease) Stroke Mother Medical history unknown Social History Housing: Apartment Alcohol intake: never Patient Tobacco Use Status: Never used Tobacco e-Cigarette/Vaping Use: Never Used Second Hand Smoke Exposure: Yes service: No Current occupational status: disabled Cognitive needs: No Hearing needs: No Vision needs: Yes (glasses) Review of Systems Skin/Breast Reports non-healing lesions, Reports rash, Reports skin pain, Reports skin ulcer and Reports wounds Physical Exam Vital Signs: Last Vital Signs Temp 97 F 06/21/23 11:46 Pulse 79 06/21/23 11:46 BP 112/82 06/21/23 11:46 Pulse Ox 96 06/21/23 11:46 Oxygen Delivery Method Room Air 06/21/23 11:46 BMI result Body Mass Index 34.8 Const General: cooperative, healthy appearing and comfortable Nutritional Appearance: obese Orientation/consciousness: patient oriented x3 Limitations: no limitations HEENT Head: Yes normocephalic and Yes atraumatic Resp Effort & Inspection: normal respiratory effort and able to speak in complete sentences GI Inspection: No distended Palpation (GI): Soft to palpation and nontender Skin Other: Skin exam Skin exam today not much different from 05/23/2023 Neuro General: patient oriented x3 Extrem Other: No active synovitis Normal nailfold capillaroscopy Assessment & Plan Assessment & Plan (1) Ulcer of left lower leg: Code(s): L97.929 - Non-pressure chronic ulcer of unspecified part of left lower leg with unspecified severity Qualifiers: Non-pressure ulcer stage: limited to breakdown of skin Qualified Code(s): L97.921 - Non-pressure chronic ulcer of unspecified part of left lower leg limited to breakdown of skin (2) Ulcer of right lower leg: Code(s): L97.919 - Non-pressure chronic ulcer of unspecified part of right lower leg with unspecified severity Qualifiers: Non-pressure ulcer stage: limited to breakdown of skin Qualified Code(s): L97.911 - Non-pressure chronic ulcer of unspecified part of right lower leg limited to breakdown of skin Plan: This is a 77-year-old female who presents for evaluation of recurrent painful ulcers of her ankles and feet. She was evaluated by vascular surgery and angiogram was performed and according to notes it was unremarkable. No further intervention was suggested. Labs showed minimally elevated inflammatory markers. Per patient, in the past, the lesions improved significantly with prednisone. Comprehensive serology is negative except for borderline positive dsDNA with no other clinical or serologic criteria for any specific autoimmune rheumatic disease. She was evaluated by General surgery and no skin biopsy was performed as there was risk of poor wound healing. She was evaluated by Dermatology yesterday and was advised to wear compression stockings and use a topical steroid cream. Will retrieve records from [facility] D[facility] Advised patient to start taking prednisone taper, starting at 30 mg daily for 2 weeks, 20 mg daily for 2 weeks then 10 mg daily for 2 weeks then stop. Re- evaluate in 6 weeks. If no improvement with prednisone, these would likely be venous stasis ulcers. Plan I spent 28 minutes reviewing patient's chart, evaluating patient, placing orders, counseling patient and her daughter and documenting in the chart Medications: New 2 prednisone Take 2 tabs by mouth daily for 2 weeks then 1 tab daily for 2 weeks then stop 42 tabs 0RF NS Coding Level of Care Code Est Pt Level 4 (55272) Diagnoses Skin ulcer of left lower leg, limited to breakdown of skin L97.921 Non-pressure ulcer stage: limited to breakdown of skin Skin ulcer of right lower leg, limited to breakdown of skin L97.911 Non-pressure ulcer stage: limited to breakdown of skin
[2023-06-21 11:46] VITALS: BP 112/82; PULSE 79; TEMP 36.1; O2SAT 96; BMI 34.8
== END 2023-06-21 12:04 | disposition home or self-care (01) ==
PROVIDERS: PCP Internal Medicine; Visit Provider Student in an Organized Health Care Education/Training Program
DX: L97.921 Non-pressure chronic ulcer of unspecified part of left lower leg limited to breakdown of skin (principal); L97.911 Non-pressure chronic ulcer of unspecified part of right lower leg limited to breakdown of skin
CPT/HCPCS: 99214

== ENCOUNTER → 2023-06-21 11:35 | Outpatient (BNVA) | payer OTHER, MEDICAID, SELFPAY | PROVIDERS: PCP Internal Medicine; Visit Provider Student in an Organized Health Care Education/Training Program | DX: L97.921 Non-pressure chronic ulcer of unspecified part of left lower leg limited to breakdown of skin (principal); L97.911 Non-pressure chronic ulcer of unspecified part of right lower leg limited to breakdown of skin | CPT/HCPCS: 99212 ==

== ENCOUNTER 2023-08-05 14:14 | Outpatient (AMB) | payer OTHER, MEDICAID, SELFPAY ==
--- NOTE | 2023-08-05 14:16 | A.OFFVIS_ITS ---
Intake Vital Signs 3 08/05/23 14:17 Height 5 ft 1 in Weight 184 lb 11.958 oz BMI 34.9 BP 100/66 Blood Pressure Location Rt brachial Position Sitting Pulse 79 Pulse Source Pulse Oximeter Temp 98.6 F Temp Source Skin Pulse Oximetry (%) 95 Intake Visit Reasons: skin ulcer Intake Note: Patient last seen 06/21/23 presents today for follow up. She has Derm appt on 08/16/23 Gun Repair Clerk Required: Yes Gun Repair Clerk Language: Dutch Accompanied by: Daughter Allergies morphine [MORPHINE] Allergy (Intermediate, Verified 06/21/23 11:39) VOMITING Penicillins [PENICILLINS] Allergy (Mild, Verified 06/21/23 11:39) RASH oxaprozin [From Daypro] Allergy (Unknown, Verified 06/21/23 11:39) RASH budesonide [Symbicort] Adverse Reaction (Unknown, Verified 06/21/23 11:39) nausea and vomiting Medication List - Last Reconciled 08/05/23 by Fausto Bowens MD acetaminophen ER 650 mg PO Q8H PRN 30 days albuterol sulfate 2.5 mg (3 mL) inhalation QID PRN 30 days albuterol sulfate 90 mcg/actuation 1 puff inhalation Q6H alendronate 70 mg PO QWEEK 3 months atorvastatin 80 mg PO BEDTIME 90 days calcium carbonate-vit D3-min 600 mg calcium- 200 unit 1 tab PO DAILY candesartan 32 mg PO DAILY cholecalciferol (vitamin D3) 25 mcg PO DAILY 90 days fluticasone propionate 110 mcg/actuation (Flovent HFA) 2 puffs inhalation BID 30 days hydroxychloroquine 200 mg PO BID inhalational spacing device (Aerochamber MV spacer) As directed lactulose 20 grams (30 mL) PO DAILY PRN lidocaine 5% 1 appl topical TID PRN loratadine 10 mg PO DAILY PRN 90 days lubiprostone (Amitiza) 24 mcg PO BID mineral oil (Fleet Mineral Oil enema) 133 mL [place] DAILY PRN mirtazapine 15 mg PO BEDTIME 90 days miscellaneous medical supply Power Lift Chair - As directed - to use indefinatly mupirocin 2% 1 appl topical TID polyethylene glycol 3350 (Miralax) 17 grams PO DAILY PRN sennosides (senna) 8.6 mg PO DAILY silver sulfadiazine 1% (Silvadene) 1 appl topical BID tramadol 50 mg PO BID PRN 30 days zolpidem 10 mg PO BEDTIME PRN 30 days HPI HPI Comments 2 History of Present Illness0 Details 77-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 She has completed prednisone taper with resolution of her leg and feet ulcers. They have closed. He feels much better overall. Now she can wear socks without pain. She can not think of any side effects related to prednisone. Initial history: This is a 77-year-old female who presents for evaluation of bilateral leg ulcers. Per daughter these started about 2 years ago. They occur on the ankles and heels. They common go. The rashes start as a A skin bleb, eventually the skin breaks off, she would have a painful ulcer, then it heals. Recently she has been having painful ulcers in both her heels. She states that she cannot even wear socks due to the severe pain. She denies any significant trauma to the heel. The rashes are not itchy. She is unaware of any self or family history of autoimmune rheumatic disease. She denies any fevers or weight loss. Denies any painful or swollen joints. She was evaluated by vascular surgery and had angiogram and according to the notes, the angiogram was unremarkable and no further intervention was suggested. [facility] Medical History Constipation Osteoporosis Allergic rhinitis Insomnia Osteoarthritis Obesity (BMI 30-39.9) Depression Anxiety Osteopenia Vitamin D deficiency GERD without esophagitis Asthma Paroxysmal atrial fibrillation Pure hypercholesterolemia Benign essential hypertension PAF (paroxysmal atrial fibrillation) Surgical History History of colonoscopy Family History Father CVD (cardiovascular disease) Stroke Mother Medical history unknown Social History Housing: Apartment Alcohol intake: never Patient Tobacco Use Status: Never used Tobacco e-Cigarette/Vaping Use: Never Used Second Hand Smoke Exposure: Yes service: No Current occupational status: disabled Cognitive needs: No Hearing needs: No Vision needs: Yes (glasses) Review of Systems Const All systems reviewed & are unremarkable except as noted in HPI and below Physical Exam Vital Signs: Last Vital Signs Temp 98.6 F 08/05/23 14:17 Pulse 79 08/05/23 14:17 BP 100/66 08/05/23 14:17 Pulse Ox 95 08/05/23 14:17 BMI result Body Mass Index 34.9 Const General: cooperative, healthy appearing and comfortable Nutritional Appearance: obese Orientation/consciousness: patient oriented x3 Limitations: no limitations HEENT Head: Yes normocephalic and Yes atraumatic Resp Effort & Inspection: normal respiratory effort and able to speak in complete sentences GI Inspection: No distended Palpation (GI): Soft to palpation and nontender Skin Other: Neuro General: patient oriented x3 Extrem Other: No active synovitis Normal nailfold capillaroscopy Results Reviewed Results Reviewed: MR Foot LT W WO - 04/17/23 - Report Status:Signed INDICATION: NON HEALING LT HEEL WOUND OSTEOMYELITIS ? COMPARISON: None ? TECHNIQUE: Multiplanar, multisequence MRI was performed of the left foot without and after the uneventful intravenous contrast administration of 17 mL Dotarem. ? FINDINGS: ? Bone: A posterior plantar calcaneal spur is noted. There is no abnormal T1 marrow replacement or surrounding hyperintense signal on fluid sensitive sequences involving the left hindfoot. Degenerative change with cystic change is noted involving the anterior process of the calcaneus. No osteochondral lesion is noted. Degenerative changes are noted involving the third TMT. ? Soft Tissues: Mild subcutaneous soft tissue swelling is noted along the heel pad. There is thickening of the plantar fascia in keeping with chronic plantar fasciitis. Left ankle joint fluid is present. After intravenous contrast administration, there is mild enhancement of the subcutaneous soft tissues along the heel pad in keeping with cellulitis. No drainable fluid collection is noted. ? ? IMPRESSION: Heel pad thickening with mild enhancement which may represent cellulitis without MRI findings to suggest osteomyelitis of the left hindfoot. ? ? ? Assessment & Plan Assessment & Plan (1) Ulcer of left lower leg: Code(s): L97.929 - Non-pressure chronic ulcer of unspecified part of left lower leg with unspecified severity Qualifiers: Non-pressure ulcer stage: limited to breakdown of skin Qualified Code(s): L97.921 - Non-pressure chronic ulcer of unspecified part of left lower leg limited to breakdown of skin (2) Ulcer of right lower leg: Code(s): L97.919 - Non-pressure chronic ulcer of unspecified part of right lower leg with unspecified severity Qualifiers: Non-pressure ulcer stage: limited to breakdown of skin Qualified Code(s): L97.911 - Non-pressure chronic ulcer of unspecified part of right lower leg limited to breakdown of skin Plan: This is a 77-year-old female who presents for evaluation of recurrent painful ulcers of her ankles and feet. She was evaluated by vascular surgery and angiogram was performed and according to notes it was unremarkable. No further intervention was suggested. Labs showed minimally elevated inflammatory markers. Per patient, in the past, the lesions improved significantly with prednisone. Comprehensive serology is negative except for borderline positive dsDNA with no other clinical or serologic criteria for any specific autoimmune rheumatic disease. She was evaluated by General surgery and no skin biopsy was performed as there was risk of poor wound healing. She was evaluated by Dermatology yesterday and was advised to wear compression stockings and use a topical steroid cream. Patient's lesions again completely resolved with prednisone taper. These are likely autoimmune in nature. Unfortunately I do not have a straight forward diagnosis has no biopsy was done. Patient has had those lesions for 3 years and they keep recurring. Will need a DMARD. Discussed risks and benefits of hydroxychloroquine. Patient agreed to proceed. Will start hydroxychloroquine 200 mg Twice daily. If hydroxychloroquine is ineffective or poorly tolerated, can switch to methotrexate or azathioprine. Can use prednisone as needed for flare-ups (3) Long-term use of hydroxychloroquine: Code(s): Z79.899 - Other termite renewal inspector (current) drug therapy Plan: Discussed risk of retinopathy associated with hydroxychloroquine. Advised patient to follow-up with ophthalmology regularly Plan I spent 28 minutes reviewing patient's chart, evaluating patient, placing orders, counseling patient and her daughter and documenting in the chart Medications: New 2 hydroxychloroquine 200 mg PO BID 60 tabs 2RF Coding Level of Care Code Est Pt Level 4 (00569) Diagnoses Skin ulcer of left lower leg, limited to breakdown of skin L97.921 Non-pressure ulcer stage: limited to breakdown of skin Skin ulcer of right lower leg, limited to breakdown of skin L97.911 Non-pressure ulcer stage: limited to breakdown of skin Long-term use of hydroxychloroquine Z79.899
[2023-08-05 14:17] VITALS: BP 100/66; PULSE 79; TEMP 37; O2SAT 95; BMI 34.9
== END 2023-08-05 14:54 | disposition home or self-care (01) ==
PROVIDERS: PCP Internal Medicine; Visit Provider Student in an Organized Health Care Education/Training Program
DX: L97.921 Non-pressure chronic ulcer of unspecified part of left lower leg limited to breakdown of skin (principal); L97.911 Non-pressure chronic ulcer of unspecified part of right lower leg limited to breakdown of skin; Z79.899 Other long term (current) drug therapy
CPT/HCPCS: 99214

== ENCOUNTER → 2023-08-05 14:14 | Outpatient (BNVA) | payer OTHER, MEDICAID, SELFPAY | PROVIDERS: PCP Internal Medicine; Visit Provider Student in an Organized Health Care Education/Training Program | DX: L97.911 Non-pressure chronic ulcer of unspecified part of right lower leg limited to breakdown of skin (principal); Z79.899 Other long term (current) drug therapy | CPT/HCPCS: 99212 ==

== ENCOUNTER 2023-09-09 07:56 | Outpatient (REF) | payer OTHER, SELFPAY ==
[2023-09-09 08:12] LABS: MANUAL DIFF FLAG NO
[2023-09-09 08:43] LABS: Appearance Urine Clear; Color Urine Yellow; Glucose Urine UA Negative (Negative); Leukocyte Esterase Urine Trace (Negative); Nitrite Urine Negative (Negative); PH 6.5 (5.0-9.0); Specific Gravity - Urine 1.015 (1.005-1.025); UMIC TRIGGER UACC YES; Urine Blood Trace (Negative); Urine Ketones Negative (Negative); Urine Protein Negative (Neg-Trace)
[2023-09-09 08:44] LABS: Basophils Percent Auto 0.5 % (0-2); Eosinophils Absolute Auto 0.1 X10*3/uL (0.0-0.4); Hematocrit 41.9 % (37.0-47.0); Hemoglobin 13.2 g/dl (12.0-16.0); Imm Gran Abs Auto 0.04 X10*3/uL (0.00-0.03); Imm Gran Pct Auto 0.6 % (0.0-0.4); Lymphocytes Absolute Auto 1.7 X10*3/uL (1.2-4.9); Lymphocytes Percent Auto 26.9 % (20-40); Mean Corpuscular HGB Conc 31.5 g/dl (31.0-35.0); Mean Corpuscular Hemoglobin 27.2 pg (27.0-33.0); Mean Corpuscular Volume 86.4 fL (80.0-98.0); Monocytes Absolute Auto 0.5 X10*3/uL (0.1-1.2); Monocytes Percent Auto 7.9 % (2-11); Neutrophils Percent Auto 62.1 % (45-73); Platelet Count 328 X10*3/uL (160-400); Red Blood Count 4.85 X10*6/uL (4.20-5.50); Red Cell Distribution Width 14.1 % (11.0-16.0); White Blood Count 6.4 X10*3/uL (4.8-10.8)
[2023-09-09 08:49] LABS: Bacteria Urine None Seen (None Seen); Hyaline Casts Urine 0-2 /LPF (0-2); RBC Urine 0-2 /HPF (0-2); Squamous Epithelial Cell Urine 0-2 /HPF (0-2); WBC Urine 0-5 /HPF (0-5)
[2023-09-09 09:27] LABS: Parathyroid Hormone Intact 86.7 pg/mL (8.7-77.1)
[2023-09-09 09:28] LABS: Alanine Aminotransferase 15 U/L (0-31); Albumin Level 4.1 g/dL (3.5-5.0); Alkaline Phosphatase 97 U/L (39-117); Anion Gap 10 (12-20); Aspartate Amino Transferase 18 U/L (5-31); Bilirubin Total 0.5 mg/dL (0.0-1.0); Blood Urea Nitrogen 16 mg/dL (9-16); Calcium 9.6 mg/dL (8.4-10.2); Carbon Dioxide 31 mmol/L (22-29); Chloride 105 mmol/L (96-108); Cholesterol 232 mg/dL (<200); Estimated Glomerular Filt Rate > 60; Glucose Fasting 95 mg/dL (60-99); HDL Cholesterol 51 mg/dL (>40); LDL Cholesterol Calculated 142 mg/dL (<100); Sodium 142 mmol/L (135-145); Triglycerides 197 mg/dL (<150)
[2023-09-09 09:46] LABS: TSH reflex Free T4 2.31 uIU/mL (0.32-4.0); Vitamin D 25-OH Total 26.9 ng/mL (>30)
== END 2023-09-09 07:57 | disposition home or self-care (01) ==
LOC: HO.LAB 07:56
PROVIDERS: PCP Internal Medicine; Visit Provider Internal Medicine
DX: E55.9 Vitamin D deficiency, unspecified (principal); E78.00 Pure hypercholesterolemia, unspecified; I10 Essential (primary) hypertension
CPT/HCPCS: 36415; 80053; 80061; 81001; 82306; 83970; 84443; 85025

== ENCOUNTER 2023-09-13 09:23 | Outpatient (AMB) | payer OTHER, SELFPAY ==
[2023-09-13 09:40] VITALS: BP 136/80; PULSE 76; O2SAT 96; BMI 35.6
--- NOTE | 2023-09-13 09:40 | MHC.OFFVIS ---
Intake Vital Signs 09/13/23 09:40 Height 5 ft 1 in Weight 188 lb 4.396 oz BMI 35.6 BP 136/80 Blood Pressure Location Rt brachial Position Sitting Pulse 76 Pulse Source Pulse Oximeter Pulse Oximetry (%) 96 Oxygen Delivery Method Room Air Intake Visit Reasons: skin ulcer Intake Note: Pt last seen 08/05/23 presents today with complaints of bl feet pain and ulcers. States her skin seems to be getting darker. She was taking plaquenil but stopped when she developed side effects. She is currently taking prednisone. 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 Accompanied by: Son Allergies morphine [MORPHINE] Allergy (Intermediate, Verified 09/13/23 09:47) VOMITING Penicillins [PENICILLINS] Allergy (Mild, Verified 09/13/23 09:47) RASH oxaprozin [From Daypro] Allergy (Unknown, Verified 09/13/23 09:47) RASH hydroxychloroquine Adverse Reaction (Intermediate, Verified 09/13/23 10:46) Abdominal Pain budesonide [Symbicort] Adverse Reaction (Unknown, Verified 09/13/23 09:47) nausea and vomiting Medication List - Last Reconciled 09/13/23 by Fausto Bowens MD acetaminophen ER 650 mg PO Q8H PRN 30 days albuterol sulfate 2.5 mg (3 mL) inhalation QID PRN 30 days albuterol sulfate 90 mcg/actuation 1 puff inhalation Q6H alendronate 70 mg PO QWEEK 3 months atorvastatin 80 mg PO BEDTIME 90 days calcium carbonate-vit D3-min 600 mg calcium- 200 unit 1 tab PO DAILY candesartan 32 mg PO DAILY cholecalciferol (vitamin D3) 25 mcg PO DAILY 90 days fluticasone propionate 110 mcg/actuation (Flovent HFA) 2 puffs inhalation BID 30 days inhalational spacing device (Aerochamber MV spacer) As directed lactulose 20 grams (30 mL) PO DAILY PRN lidocaine 5% 1 appl topical TID PRN loratadine 10 mg PO DAILY PRN 90 days lubiprostone (Amitiza) 24 mcg PO BID mineral oil (Fleet Mineral Oil enema) 133 mL [place] DAILY PRN mirtazapine 15 mg PO BEDTIME 90 days miscellaneous medical supply Power Lift Chair - As directed - to use indefinatly mupirocin 2% 1 appl topical TID polyethylene glycol 3350 (Miralax) 17 grams PO DAILY PRN prednisone take 2 tabs daily for 1 week then remain on 1 tab daily sennosides (senna) 8.6 mg PO DAILY silver sulfadiazine 1% (Silvadene) 1 appl topical BID tramadol 50 mg PO BID PRN 30 days zolpidem 10 mg PO BEDTIME PRN 30 days HPI HPI Comments History of Present Illness Details 78-year-old female with idiopathic inflammatory leg ulcers returns for follow-up. Patient completed prednisone taper and started hydroxychloroquine last visit. Patient could not tolerate hydroxychloroquine due to GI upset and headaches. The wounds on her he will have started to reappear. She is having little boils and blisters. They are quite painful. She just restarted prednisone Initial history: This is a 77-year-old female who presents for evaluation of bilateral leg ulcers. Per daughter these started about 2 years ago. They occur on the ankles and heels. They common go. The rashes start as a A skin bleb, eventually the skin breaks off, she would have a painful ulcer, then it heals. Recently she has been having painful ulcers in both her heels. She states that she cannot even wear socks due to the severe pain. She denies any significant trauma to the heel. The rashes are not itchy. She is unaware of any self or family history of autoimmune rheumatic disease. She denies any fevers or weight loss. Denies any painful or swollen joints. She was evaluated by vascular surgery and had angiogram and according to the notes, the angiogram was unremarkable and no further intervention was suggested. [facility]LY [facility] Medical History Constipation Osteoporosis Allergic rhinitis Insomnia Osteoarthritis Obesity (BMI 30-39.9) Depression Anxiety Osteopenia Vitamin D deficiency GERD without esophagitis Asthma Paroxysmal atrial fibrillation Pure hypercholesterolemia Benign essential hypertension PAF (paroxysmal atrial fibrillation) Surgical History History of colonoscopy Family History Father CVD (cardiovascular disease) Stroke Mother Medical history unknown Social History Housing: Apartment Alcohol intake: never Patient Tobacco Use Status: Never used Tobacco e-Cigarette/Vaping Use: Never Used Second Hand Smoke Exposure: Yes service: No Current occupational status: disabled Cognitive needs: No Hearing needs: No Vision needs: Yes (glasses) Review of Systems Skin/Breast Reports non-healing lesions, Reports skin ulcer and Reports wounds Physical Exam Vital Signs: Last Vital Signs Pulse 76 09/13/23 09:40 BP 136/80 09/13/23 09:40 Pulse Ox 96 09/13/23 09:40 Oxygen Delivery Method Room Air 09/13/23 09:40 BMI result Body Mass Index 35.6 Const General: cooperative, healthy appearing and comfortable Nutritional Appearance: obese Orientation/consciousness: patient oriented x3 Limitations: no limitations HEENT Head: Yes normocephalic and Yes atraumatic Resp Effort & Inspection: normal respiratory effort and able to speak in complete sentences GI Inspection: No distended Palpation (GI): Soft to palpation Skin Other: Fluid filled boil on patient's left heel, tender to palpation Neuro General: patient oriented x3 Extrem Other: No active synovitis Normal nailfold capillaroscopy Results Reviewed Results Reviewed: MR Foot LT W WO - 04/17/23 - Report Status:Signed INDICATION: NON HEALING LT HEEL WOUND OSTEOMYELITIS ? COMPARISON: None ? TECHNIQUE: Multiplanar, multisequence MRI was performed of the left foot without and after the uneventful intravenous contrast administration of 17 mL Dotarem. ? FINDINGS: ? Bone: A posterior plantar calcaneal spur is noted. There is no abnormal T1 marrow replacement or surrounding hyperintense signal on fluid sensitive sequences involving the left hindfoot. Degenerative change with cystic change is noted involving the anterior process of the calcaneus. No osteochondral lesion is noted. Degenerative changes are noted involving the third TMT. ? Soft Tissues: Mild subcutaneous soft tissue swelling is noted along the heel pad. There is thickening of the plantar fascia in keeping with chronic plantar fasciitis. Left ankle joint fluid is present. After intravenous contrast administration, there is mild enhancement of the subcutaneous soft tissues along the heel pad in keeping with cellulitis. No drainable fluid collection is noted. ? ? IMPRESSION: Heel pad thickening with mild enhancement which may represent cellulitis without MRI findings to suggest osteomyelitis of the left hindfoot. ? ? ? Assessment & Plan Assessment & Plan (1) Ulcer of left lower leg: Code(s): L97.929 - Non-pressure chronic ulcer of unspecified part of left lower leg with unspecified severity Qualifiers: Non-pressure ulcer stage: limited to breakdown of skin Qualified Code(s): L97.921 - Non-pressure chronic ulcer of unspecified part of left lower leg limited to breakdown of skin (2) Ulcer of right lower leg: Code(s): L97.919 - Non-pressure chronic ulcer of unspecified part of right lower leg with unspecified severity Qualifiers: Non-pressure ulcer stage: limited to breakdown of skin Qualified Code(s): L97.911 - Non-pressure chronic ulcer of unspecified part of right lower leg limited to breakdown of skin Plan: This is a 77-year-old female who presents for evaluation of recurrent painful ulcers of her ankles and feet. She was evaluated by vascular surgery and angiogram was performed and according to notes it was unremarkable. No further intervention was suggested. Labs showed minimally elevated inflammatory markers. Comprehensive serology is negative except for borderline positive dsDNA with no other clinical or serologic criteria for any specific autoimmune rheumatic disease. She was evaluated by General surgery and no skin biopsy was performed as there was risk of poor wound healing. She was evaluated by Dermatology and was advised to wear compression stockings and use a topical steroid cream. Patient's lesions again completely resolved with prednisone taper. These are likely autoimmune in nature. Unfortunately I do not have a straight forward diagnosis as no biopsy was done. Patient has had those lesions for 3 years and they keep recurring. DMARD was needed, hydroxychloroquine was started last visit. Was not tolerated due to GI upset DC hydroxychloroquine. Discussed risks and benefits of methotrexate. Start methotrexate 15 mg weekly plus folic acid 1 mg daily Restart prednisone at 20 mg daily for 2 weeks then remain on 10 mg daily (3) group home methotrexate user: Code(s): Z79.631 - group home (current) use of antimetabolite agent Plan: Monitor safety labs Plan I spent 28 minutes reviewing patient's chart, evaluating patient, placing orders, counseling patient and her son and documenting in the chart Orders: Orders C Reactive Protein 2 Months Z79.631 - terminal gauger (current) use of antimetabolite agent Erythrocyte Sedimentation Rate 2 Months Z79.631 - group home (current) use of antimetabolite agent Thiopurine Methyltransferase 2 Months Z51.81 - Encounter for therapeutic drug level monitoring, Z79.624 - terminal gauger (current) use of inhibitors of nucleotide synthesis Complete Blood Count Auto Diff 2 Months Z79.631 - group home (current) use of antimetabolite agent Comprehensive Met. Panel 2 Months Z79.631 - terminal gauger (current) use of antimetabolite agent T Spot TB 2 Months Z11.7 - Encounter for testing for latent tuberculosis infection Medications: New folic acid 1 mg PO DAILY 90 tabs 1RF methotrexate sodium 15 mg (6 x 2.5 mg) PO QWEEK 48 tabs 0RF methotrexate sodium 15 mg (6 x 2.5 mg) PO QWEEK 64 tabs 0RF Coding Level of Care Code Est Pt Level 4 (27114) Diagnoses Skin ulcer of left lower leg, limited to breakdown of skin L97.921 Non-pressure ulcer stage: limited to breakdown of skin Skin ulcer of right lower leg, limited to breakdown of skin L97.911 Non-pressure ulcer stage: limited to breakdown of skin terminal gauger methotrexate user Z79.631
== END 2023-09-13 10:24 | disposition home or self-care (01) ==
PROVIDERS: PCP Internal Medicine; Visit Provider Student in an Organized Health Care Education/Training Program
DX: L97.921 Non-pressure chronic ulcer of unspecified part of left lower leg limited to breakdown of skin (principal); L97.911 Non-pressure chronic ulcer of unspecified part of right lower leg limited to breakdown of skin; Z79.631 Long term (current) use of antimetabolite agent
CPT/HCPCS: 99214

== ENCOUNTER → 2023-09-13 09:23 | Outpatient (BNVA) | payer OTHER, SELFPAY | PROVIDERS: PCP Internal Medicine; Visit Provider Student in an Organized Health Care Education/Training Program | DX: L97.921 Non-pressure chronic ulcer of unspecified part of left lower leg limited to breakdown of skin (principal); L97.911 Non-pressure chronic ulcer of unspecified part of right lower leg limited to breakdown of skin; Z79.631 Long term (current) use of antimetabolite agent | CPT/HCPCS: 99212 ==

== ENCOUNTER 2023-10-04 08:17 | Emergency (ER) | payer OTHER, SELFPAY ==
--- NOTE | ~2023-10-04 | US_ITS ---
EXAMINATION: US VENOUS ULTRASOUND WITH DOPPLER LOWER EXTREMITY, RIGHT CLINICAL INFORMATION: Right lower leg swelling.. COMPARISON: None available. TECHNIQUE: Ultrasound of the deep veins is performed from the hip to the calf with compression sonography and color and pulse Doppler assessment. Spectral analysis with color-flow imaging is performed. FINDINGS: There is normal venous compression and respiratory variation and augmented flow. The visualized common femoral vein, superficial femoral vein, profunda femoral vein, popliteal vein, and the trifurcation region shows no evidence of deep venous thrombosis. There is no significant popliteal fossa cyst. If the patient's symptoms persist, followup ultrasound in 5 days 7 days might be of value to exclude proximal propagation from a non-visualized calf vein. US/US venous duplex LE RT IMPRESSION: No DVT demonstrated in the right lower extremity.
--- NOTE | ~2023-10-04 | CT_ITS ---
EXAMINATION: CT ANGIOGRAPHY LEGS WITH RUNOFF CLINICAL INFORMATION: Right lower extremity pain. History of atrial fibrillation. COMPARISON: None available. TECHNIQUE: 5 mm thin axial images of abdomen, pelvis and bilateral lower extremities were obtained following rapid IV administration of Omnipaque 350. 8 mm thick sagittal and coronal reconstructions of abdomen and pelvis and both lower extremities were performed. 8 3-D reconstruction was performed on a separate workstation and available for interpretation. This CT examination was performed using dose optimization techniques as appropriate, variously including the following: *Automated exposure control *Adjustment of mA and/or kV according to patient size (this includes techniques or standardized protocols for targeted exams where dose is matched to indication/reason for exam; i.e. extremities or head) *Use of iterative reconstruction technique DLP: 538 mGy-cm FINDINGS: NONVASCULAR ABDOMEN AND PELVIS: Lung bases: There is an 8 mm nodule in the left lung base CP angle image 10/5. Otherwise both lung bases are clear. The heart size is normal. No pericardial effusion seen. Liver, ducts and gallbladder: The liver is normal size, contour and density. No focal lesion or intrahepatic ductal dilatation seen. There are no radiopaque gallstones or wall thickening. Pancreas: Unremarkable. Spleen: The spleen is borderline normal size. There is mild inhomogeneity likely secondary to variation in contrast uptake by spleen. Adrenal glands: Unremarkable. Kidneys: Both kidneys are normal size, shape and position. Left kidney measures 10.6 cm and the right kidney measures 10.3 cm. There is a 3.9 cm upper and 1.1 cm midpole cysts in left kidney. There is a smaller 8 mm cyst upper midpole right kidney. There are no radiopaque renal calculi or hydronephrosis. Lymphovascular structures: Abdominal aorta is normal caliber. No retroperitoneal lymph nodes or mass seen. GI tract: There is scattered stool, diverticuli and gas seen throughout the colon. The small bowel loops are normal caliber. Appendix is normal caliber. No free air or free fluid seen. Abdominal wall: Unremarkable. Pelvis: The uterus is anteverted and appears unremarkable. The urinary bladder is nondistended and appears unremarkable. No adnexal mass or free fluid. No abnormal pelvic or iliac lymph nodes. Osseous structures: There is mild degenerative ventral spondylosis L3-L4, L4-L5 and L5-S1 disc levels. No aggressive lytic or sclerotic process seen. VASCULAR ABDOMEN AND BILATERAL LOWER EXTREMITY RUNOFF: The abdominal aorta is of normal course, caliber without intraluminal filling defect, dissection or narrowing. The origins of celiac, superior mesenteric and inferior mesenteric artery are widely patent. There are solitary renal arteries bilaterally which are widely patent. There is bifurcation of abdominal aorta into right and left equal common iliac arteries which are widely patent which in turn bifurcate into equal bilateral external iliac and internal iliac arteries which are widely patent. Right lower extremity: The right external iliac artery continues inferior to pelvis as patent right common femoral artery. The common femoral artery is patent and bifurcates into widely patent superficial femoral and profunda femoris artery. Superficial femoral artery is patent throughout the right thigh and continues to the proper fossa and trifurcates into anterior, posterior tibial and peroneal artery. The peroneal artery is lost in the mid lower leg. Posterior tibial artery is dominant and continues beyond the ankle. The anterior tibial artery is lost about ankle. No narrowing seen. Left lower extremity: The left external iliac artery continues as common femoral artery and bifurcates into profunda femoris and superficial femoral artery. Both arteries are patent in their course. The left superior femoral artery continues through the posterior thigh and to popliteal fossa and trifurcates into anterior tibial and a common origin of posterior tibial and peroneal artery. The peroneal artery terminates or not visualized beyond the mid to distal lower leg. The anterior and posterior tibial arteries continue beyond the ankle joint into the foot and are widely patent. Bone windows reveal normal SI joints. The sacrum and iliac bone appears unremarkable. Pubic symphysis is unremarkable. Bilateral femur, tibia and fibula appear unremarkable. The ankle mortise and subtalar joints are normal. There is mild bilateral L5-S1 facet joint arthropathy. CT/CT angio abd aorta runoff IMPRESSION: Normal abdominal aorta with bifurcation into common iliac arteries which are normal. There is two-vessel arterial supply to both lower legs at the ankle joint. The right anterior tibial artery is not well visualized beyond the ankle with a dominant right posterior tibial artery continuing in the foot. There is a two-vessel anterior and posterior tibial artery flow beyond the ankle into the left foot. No atherosclerotic narrowing or thrombus or plaque seen. There is no thrombus visualized in either lower extremity vessels Mild constipation. No acute intra-abdominal process seen. There are bilateral simple renal cysts with no workup needed.
--- NOTE | ~2023-10-04 | XR_ITS ---
EXAMINATION: XR ANKLE, RIGHT CLINICAL INFORMATION: Right ankle pain COMPARISON: 08/28/2021 TECHNIQUE: AP, lateral, and mortise views of the right ankle. FINDINGS: No fracture. Alignment is anatomic. No erosions. Joint spaces are maintained. There is plantar calcaneal spurring Soft tissues are normal. XR/XR ankle RT min 3V IMPRESSION: Normal right ankle. Plantar calcaneal spurring
[2023-10-04 08:41] VITALS: BP 170/77; PULSE 68; RESP 16; TEMP 36.8; O2SAT 98; BMI 34.8
--- NOTE | 2023-10-04 09:20 | PC.NURSE ---
pt is alert and oriented, skin appropriate for ethnicity, respirations even and unlabored, pt presents to the ed with wounds on both feet on and off for months, wounds appear healing-multiple scabs on the bilateral lower extremities. strong palpable pedal pulses to the right foot, unable to to palpate pedal pulses on right foot, also slightly cool to the touch-darlin pa aware. provider was able to get pedal pulses with a Doppler but feint
--- NOTE | 2023-10-04 09:39 | ED.GENADULT ---
HPI - General Adult General Chief complaint: General Medical Stated complaint: Foot Ulcers Diff Walking Time Seen by Provider: 10/04/23 09:15 Source: patient and RN notes reviewed Mode of arrival: ambulatory Limitations: no limitations History of Present Illness HPI narrative: This is a 78-year-old female, with a history of venous stasis ulcers, insomnia, cellulitis, MGUS, arthritis, depression, vitamin-D deficiency as well as paroxysmal atrial fibrillation, presents emergency department with complaints of bilateral lower leg ulcers. Patient states that she has had worsening pain in her right lower extremity over the last several days. Patient denies any fevers, chills, chest pain or shortness of breath, chest pain, abdominal pain, nausea, vomiting or diarrhea. She reports that since yesterday she has had burning-like sensation in her lower extremity. She states that she previously has had vascular surgery is performed, last was performed at [facility] last year. Family reports that they believe that this was on her left leg not her right. No other complaints or concerns at this time. MD complaint: Right foot and ankle pain Onset (ago): day(s) Radiation: non-radiation Severity: moderate Quality: burning Pain Consistency: constant Relieving factors: none Exacerbating factors: none Associated symptoms: denies other symptoms Treatments prior to arrival: none Related Data Home Medications Medication Instructions Recorded Confirmed calcium carb-vit D3-minerals 600 1 tab PO DAILY 09/26/22 06/21/23 mg calcium-200 unit tablet Previous Rx's Medication Instructions Recorded inhalational spacing device #1 ea 04/07/21 (Aerochamber MV spacer) miscellaneous medical supply #1 ea 08/15/21 fluticasone propionate 110 2 puff inhalation BID 30 days #12 10/31/22 mcg/actuation HFA aerosol inhaler grams (Flovent HFA) cholecalciferol (vitamin D3) 25 25 mcg PO DAILY 90 days #90 caps 11/09/22 mcg (1,000 unit) capsule acetaminophen 650 mg 650 mg PO Q8H PRN pain 30 days #90 12/31/22 tablet,extended release tabs mupirocin 2 % topical ointment 1 appl topical TID #22 grams 03/03/23 silver sulfadiazine 1 % topical 1 appl topical BID #25 grams 03/07/23 cream (Silvadene) mineral oil (Fleet Mineral Oil 133 ml MD DAILY PRN constipation 04/08/23 enema) #266 mL polyethylene glycol 3350 17 17 g PO DAILY PRN constipation 04/08/23 gram/dose oral powder (Miralax) #238 grams albuterol sulfate 2.5 mg/3 mL 2.5 mg (3 mL) inhalation QID PRN 04/24/23 (0.083 %) solution for nebulization shortness of breath or wheezing 30 days #180 mL mirtazapine 15 mg tablet 15 mg PO BEDTIME 90 days #90 tabs 06/03/23 zolpidem 10 mg tablet 10 mg PO BEDTIME PRN sleep 30 days 06/03/23 #30 tabs atorvastatin 80 mg tablet 80 mg PO BEDTIME 90 days #90 tabs 06/17/23 alendronate 70 mg tablet 70 mg PO QWEEK 3 months #13 tabs 07/13/23 albuterol sulfate 90 mcg/actuation 1 puff inhalation Q6H #8.5 ea 07/20/23 aerosol inhaler candesartan 32 mg tablet 32 mg PO DAILY #90 tabs 07/22/23 sennosides 8.6 mg tablet (senna) 8.6 mg PO DAILY #90 tabs 07/31/23 lactulose 20 gram/30 mL oral 20 g (30 mL) PO DAILY PRN 08/14/23 solution constipation #420 mL lubiprostone 24 mcg capsule 24 mcg PO BID #60 caps 08/14/23 (Amitiza) prednisone 5 mg tablet See Rx Instructions PO .COMPLEX 09/09/23 #44 tabs folic acid 1 mg tablet 1 mg PO DAILY #90 tabs 09/13/23 methotrexate sodium 2.5 mg tablet 15 mg (6 x 2.5 mg) PO QWEEK #48 09/13/23 tabs lidocaine 5 % topical ointment 1 appl topical TID PRN pain #50 09/14/23 grams loratadine 10 mg tablet 10 mg PO DAILY PRN allergy 09/25/23 symptoms 90 days #90 tabs doxycycline monohydrate 100 mg 100 mg PO BID 10 days #20 caps 09/26/23 capsule tramadol 50 mg tablet 50 mg PO BID PRN pain 30 days #60 09/30/23 tabs disposable bed pads #1 ea 10/01/23 gloves #1 ea 10/01/23 Allergies Allergy/AdvReac Type Severity Reaction Status Date / Time morphine [MORPHINE] Allergy Intermediate VOMITING Verified 10/04/23 08:40 oxaprozin [From Daypro] Allergy Unknown RASH Verified 10/04/23 08:40 hydroxychloroquine AdvReac Intermediate Abdominal Verified 10/04/23 08:40 Pain budesonide [Symbicort] AdvReac Unknown nausea and Verified 10/04/23 08:40 vomiting Review of Systems Review of Systems: Yes all other systems are reviewed and are negative Constitutional: Constitutional: Reports as per [facility] Past Medical History Attestation statement: The following information was validated with the patient. Medical History Constipation Osteoporosis Allergic rhinitis Insomnia Osteoarthritis Obesity (BMI 30-39.9) Depression Anxiety Osteopenia Vitamin D deficiency GERD without esophagitis Asthma Paroxysmal atrial fibrillation Pure hypercholesterolemia Benign essential hypertension PAF (paroxysmal atrial fibrillation) Surgical History History of colonoscopy Family History Family History Father CVD (cardiovascular disease) Stroke Mother Medical history unknown Social History Social History Housing: Apartment Alcohol intake: never Patient Tobacco Use Status: Never used Tobacco Smoked in Last 30 Days: No e-Cigarette/Vaping Use: Never Used Second Hand Smoke Exposure: Yes Use of substances other than those prescribed or required for medical reasons: No Advance Directives: No Advance Directives Information Provided: No service: No Current occupational status: disabled Cognitive needs: No Hearing needs: No Vision needs: Yes (glasses) Physical Exam ED Vital Signs: Vital Signs - 24 hr 10/04/23 08:41 10/04/23 14:34 Temperature 98.2 F 97.7 F Pulse Rate 68 74 Respiratory Rate 16 14 Blood Pressure 170/77 H 159/81 H Pulse Oximetry 98 95 Oxygen Delivery Method Room Air Room Air BMI result Body Mass Index 34.8 Const General: cooperative, comfortable and no acute distress Orientation/consciousness: patient oriented x3 Limitations: no limitations HENMT Head: Yes normal to inspection, Yes normocephalic and Yes atraumatic Ears: hearing grossly normal bilaterally General nose exam: Normal external nose present Face and sinus: Yes normal facial exam Mouth: Normal oral and palatal mucosa present, oropharynx normal and moist mucous membranes Throat: Yes posterior oropharynx normal Eyes General: appearance normal, both eyes and all related structures Eyelids: Yes eyelids normal Conjunctivae: conjunctivae normal Sclerae: sclerae normal Pupils: Equal, round and reactive pupils present EOM: EOMs intact bilaterally Neck Neck: Yes normal visual inspection, Yes full ROM and Yes no lymphadenopathy Lymphatic: no lymphadenopathy noted Chest Chest palpation & inspection: normal inspection of the chest Resp Effort & Inspection: normal respiratory effort and able to speak in complete sentences Auscultation: clear to auscultation bilaterally, no crackles, no rales, no rhonchi and no wheezes Cardio Rate: regular rate Rhythm: regular rhythm Heart sounds: S1 normal heart sound present and S2 normal heart sound present GI Inspection: Yes normal to inspection Skin General skin exam: no rashes or lesions noted Trauma: no lacerations or abrasions Wounds: no wounds Neuro General: patient oriented x3 and moves all extremities Cranial nerves: Yes Equal, round and reactive pupils present Extrem Other: DP pulse on the right extremely weak. Slight this noted, no tenderness palpation along the posterior calf. Diffuse tenderness palpation along medial or lateral malleolus. General: Yes normal to inspection Right upper extremity: normal to inspection Left upper extremity: normal to inspection Right lower extremity: normal to inspection Left lower extremity: normal to inspection Course Reevaluation(s) Reevaluation #1: CT returns revealing normal abdominal aorta with bifurcation into the common iliac arteries. There is 2 vessel arterial supply of both lower legs at the ankle joint. The right anterior tibial artery is not well visualized beyond ankle with a dominant right posterior tibial artery continuing in the foot there is a 2 vessel anterior-posterior tibial artery flow beyond the ankle into the left foot. No narrowing or thrombus or plaque seen. No thrombus visualized in either lower extremity vessel. I discussed these findings with Dr. Rees recommends outpatient follow-up. Discussed this with patient and family member at bedside. They understand and agree with plan. Patient stable for discharge. Time: 16:15 Medications Administered Discontinued Medications Generic Name Dose Route Start Last Admin Trade Name Freq PRN Reason Stop Dose Admin Acetaminophen 650 mg 10/04/23 13:15 10/04/23 13:20 Acetaminophen 325 Mg Tablet PO 10/04/23 13:16 650 mg ONCE ONE Administration Iohexol 100 ml 10/04/23 12:02 10/04/23 12:03 Iohexol 350 Mg/Ml 100 Ml Infus..Btl IV 10/04/23 12:03 100 ml ONCE ONE Administration Tramadol HCl 50 mg 10/04/23 15:37 10/04/23 15:50 Tramadol Hcl 50 Mg Tablet PO 10/04/23 15:38 50 mg ONCE ONE Administration Medical Decision Making Medical Decision Making [facility] Narrative: This is a 78-year-old female, with a history of venous stasis ulcers, insomnia, cellulitis, MGUS, arthritis, depression, vitamin-D deficiency as well as paroxysmal atrial fibrillation, presents emergency department with complaints of bilateral lower leg ulcers. On arrival, vital signs within normal limits. She has diminished pulses in her right lower extremity. Given findings, concerning for arterial occlusion. She has no tenderness along her calf. Differential diagnoses include arterial occlusion, ischemic limb, DVT, chronic pain, venous stasis changes, arthritis, sprain, strain. Plan: Labs, CT aorta with runoff, right ankle x-ray, ultrasound Differential Diagnosis Differential Diagnoses: The differential diagnosis associated with the presentation includes See above Admission/Observation Consideration of admission/observation: Escalation of care including admission/observation considered Lab Data [facility] Lab Attestation statement: I reviewed the patient's lab results. No leukocytosis, H&H within normal limits. Chemistry nondiagnostic. 10/04/23 10:08 10/04/23 10:08 Labs: Lab Results 10/04/23 Range/Units 10:08 WBC 8.9 (4.8-10.8) X10*3/uL RBC 4.90 (4.20-5.50) X10*6/uL Hgb 13.7 (12.0-16.0) g/dl Hct 43.8 (37.0-47.0) % MCV 89.4 (80.0-98.0) fL MCH 28.0 (27.0-33.0) pg MCHC 31.3 (31.0-35.0) g/dl RDW 14.6 (11.0-16.0) % Plt Count 268 (160-400) X10*3/uL MPV 10.4 (9.4-12.3) fL Immature Gran % (Auto) 0.5 H (0.0-0.4) % Neut % (Auto) 76.5 H (45-73) % Lymph % (Auto) 16.1 L (20-40) % [place] % (Auto) 5.6 (2-11) % Eos % (Auto) 1.0 (0-4) % Baso % (Auto) 0.3 (0-2) % Lymph # (Auto) 1.4 (1.2-4.9) X10*3/uL [place] # (Auto) 0.5 (0.1-1.2) X10*3/uL Eos # (Auto) 0.1 (0.0-0.4) X10*3/uL Baso # (Auto) 0.0 (0.0-0.2) X10*3/uL Abs Immat Gran (auto) 0.04 H (0.00-0.03) X10*3/uL Absolute Neuts (auto) 6.8 (2.0-8.3) x10*3/uL Absolute Nucleated RBC 0.000 (0.0-0.012) X10*3/uL Nucleated RBC % (auto) 0.0 (0.0-0.2) /100WBC PT 11.6 (11.1-13.3) SEC INR 1.0 (0.9-1.1) APTT 30.3 (26.0-36.8) SEC Sodium 141 (135-145) mmol/L Potassium 4.4 (3.3-5.1) mmol/L Chloride 103 (96-108) mmol/L Carbon Dioxide 31 H (22-29) mmol/L Anion Gap 11 L (12-20) BUN 21 H (9-16) mg/dL Creatinine 0.75 (0.5-1.4) mg/dL Estim Creat Clear Calc 60.6 Estimated GFR > 60 Random Glucose 92 (60-115) mg/dL Calcium 9.7 (8.4-10.2) mg/dL Total Bilirubin 0.7 (0.0-1.0) mg/dL Direct Bilirubin 0.2 (0.0-0.5) mg/dL AST 17 (5-31) U/L ALT 15 (0-31) U/L Alkaline Phosphatase 90 (39-117) U/L Troponin I High Sens < 2.7 (<3.5-17.0) ng/L Total Protein 7.2 (6.5-8.0) g/dL Albumin 4.2 (3.5-5.0) g/dL Radiology Impression Discussion of test interpretation with radiology: I have reviewed the radiologist's reading. Radiologist Impression: EXAMINATION: XR ANKLE, RIGHT CLINICAL INFORMATION: Right ankle pain COMPARISON: 08/28/2021 TECHNIQUE: AP, lateral, and mortise views of the right ankle. FINDINGS: No fracture. Alignment is anatomic. No erosions. Joint spaces are maintained. There is plantar calcaneal spurring Soft tissues are normal. XR/XR ankle RT min 3V IMPRESSION: Normal right ankle. Plantar calcaneal spurring Dictated By: Virgil Luciano MD EXAMINATION: US VENOUS ULTRASOUND WITH DOPPLER LOWER EXTREMITY, RIGHT CLINICAL INFORMATION: Right lower leg swelling.. COMPARISON: None available. TECHNIQUE: Ultrasound of the deep veins is performed from the hip to the calf with compression sonography and color and pulse Doppler assessment. Spectral analysis with color-flow imaging is performed. FINDINGS: There is normal venous compression and respiratory variation and augmented flow. The visualized common femoral vein, superficial femoral vein, profunda femoral vein, popliteal vein, and the trifurcation region shows no evidence of deep venous thrombosis. There is no significant popliteal fossa cyst. If the patient's symptoms persist, followup ultrasound in 5 days 7 days might be of value to exclude proximal propagation from a non-visualized calf vein. US/US venous duplex LE RT IMPRESSION: No DVT demonstrated in the right lower extremity. Dictated By: Gomez Romero MD External Record Review External record reviewed: Inpatient record, Office record, Outpatient record, Prior outpatient labs, Prior outpatient radiology, Primary care record and Outside ED record Discharge Plan Discharge Clinical Impression: Chronic pain in right foot Patient Disposition: Home, Self-Care Instructions: Chronic Pain (ED) Additional Instructions: You were seen in the emergency department due to worsening right foot pain. Your wounds do not appear to be infectious. Your CT scan does not reveal any blood clots or significant narrowing. You still have blood flow into your right foot. Follow-up with your vascular surgeon. You may also follow-up with our vascular surgeon, Dr. Poole, for further evaluation. Please continue taking your prescribed pain medication at home. Continue taking Tylenol. If any new or worsening symptoms occur including but not limited to worsening pain, chest pain, shortness of breath, abdominal pain, nausea, vomiting or diarrhea, please return for re-evaluation. Prescriptions: No Action (DME) miscellaneous medical supply Misc 0 .Route Qty: 1 0RF Rx Instructions: Power Lift Chair - As directed - to use indefinatly cholecalciferol (vitamin D3) 25 mcg (1,000 unit) capsule 25 mcg PO DAILY 90 Days Qty: 90 3RF acetaminophen 650 mg tablet extended release 650 mg PO Q8H PRN (Reason: pain) 30 Days Qty: 90 3RF albuterol sulfate 2.5 mg /3 mL (0.083 %) solution for nebulization 2.5 mg inhalation QID PRN (Reason: shortness of breath or wheezing) 30 Days Qty: 180 3RF atorvastatin 80 mg tablet 80 mg PO BEDTIME 90 Days Qty: 90 1RF alendronate 70 mg tablet 70 mg PO QWEEK 90 Days Qty: 13 1RF albuterol sulfate 90 mcg/actuation HFA aerosol inhaler 1 puff inhalation Q6H Qty: 8.5 3RF candesartan 32 mg tablet 32 mg PO DAILY Qty: 90 1RF sennosides [senna] 8.6 mg tablet 8.6 mg PO DAILY Qty: 90 4RF lactulose 20 gram/30 mL solution 20 g PO DAILY PRN (Reason: constipation) Qty: 420 0RF lubiprostone [Amitiza] 24 mcg capsule 24 mcg PO BID Qty: 60 1RF prednisone 5 mg tablet See Rx Instructions PO .COMPLEX Qty: 44 0RF Rx Instructions: take 2 tabs daily for 1 week then remain on 1 tab daily lidocaine 5 % ointment 1 appl topical TID PRN (Reason: pain) Qty: 50 0RF loratadine 10 mg tablet 10 mg PO DAILY PRN (Reason: allergy symptoms) 90 Days Qty: 90 1RF doxycycline monohydrate 100 mg capsule 100 mg PO BID 10 Days Qty: 20 0RF tramadol 50 mg tablet 50 mg PO BID PRN (Reason: pain) 30 Days Qty: 60 0RF (DME) gloves Large See Rx Instructions .Route .MEDSUPPLY Qty: 1 0RF Rx Instructions: As directed (DME) disposable bed pads See Rx Instructions .Route .MEDSUPPLY Qty: 1 0RF Rx Instructions: As directed 4 per day calcium carbonate-vit D3-min 600 mg calcium- 200 unit tablet 1 tab PO DAILY mineral oil [Fleet Mineral Oil] Enema 133 ml MD DAILY PRN (Reason: constipation) Qty: 266 0RF Rx Instructions: discard any unused portion polyethylene glycol 3350 [Miralax] 17 gram/dose powder 17 g PO DAILY PRN (Reason: constipation) Qty: 238 0RF mupirocin 2 % ointment 1 appl topical TID Qty: 22 0RF silver sulfadiazine [Silvadene] 1 % cream 1 appl topical BID Qty: 25 0RF Rx Instructions: apply a 1.5 mm thickness (DME) Aerochamber MV Spacer See Rx Instructions .Route Qty: 1 0RF Rx Instructions: As directed fluticasone propionate [Flovent HFA] 110 mcg/actuation HFA aerosol inhaler 2 puff inhalation BID 30 Days Qty: 12 5RF zolpidem 10 mg tablet 10 mg PO BEDTIME PRN (Reason: sleep) 30 Days Qty: 30 2RF mirtazapine 15 mg tablet 15 mg PO BEDTIME 90 Days Qty: 90 1RF folic acid 1 mg tablet 1 mg PO DAILY Qty: 90 1RF methotrexate sodium 2.5 mg tablet 15 mg PO QWEEK Qty: 48 0RF Ref[place]: [facility] [place] Group]
[2023-10-04 10:14] LABS: MANUAL DIFF FLAG NO
[2023-10-04 10:16] LABS: Basophils Percent Auto 0.3 % (0-2); Eosinophils Absolute Auto 0.1 X10*3/uL (0.0-0.4); Hematocrit 43.8 % (37.0-47.0); Hemoglobin 13.7 g/dl (12.0-16.0); Imm Gran Abs Auto 0.04 X10*3/uL (0.00-0.03); Imm Gran Pct Auto 0.5 % (0.0-0.4); Lymphocytes Absolute Auto 1.4 X10*3/uL (1.2-4.9); Lymphocytes Percent Auto 16.1 % (20-40); Mean Corpuscular HGB Conc 31.3 g/dl (31.0-35.0); Mean Corpuscular Volume 89.4 fL (80.0-98.0); Mean Platelet Volume 10.4 fL (9.4-12.3); Monocytes Absolute Auto 0.5 X10*3/uL (0.1-1.2); Monocytes Percent Auto 5.6 % (2-11); Neutrophils Absolute Auto 6.8 x10*3/uL (2.0-8.3); Neutrophils Percent Auto 76.5 % (45-73); Platelet Count 268 X10*3/uL (160-400); Red Cell Distribution Width 14.6 % (11.0-16.0); White Blood Count 8.9 X10*3/uL (4.8-10.8)
[2023-10-04 10:22] LABS: Prothrombin Time 11.6 SEC (11.1-13.3)
[2023-10-04 10:25] LABS: Partial Thromboplastin Time 30.3 SEC (26.0-36.8)
[2023-10-04 10:32] LABS: Alanine Aminotransferase 15 U/L (0-31); Albumin Level 4.2 g/dL (3.5-5.0); Alkaline Phosphatase 90 U/L (39-117); Anion Gap 11 (12-20); Aspartate Amino Transferase 17 U/L (5-31); Bilirubin Direct 0.2 mg/dL (0.0-0.5); Bilirubin Total 0.7 mg/dL (0.0-1.0); Blood Urea Nitrogen 21 mg/dL (9-16); Calcium 9.7 mg/dL (8.4-10.2); Carbon Dioxide 31 mmol/L (22-29); Chloride 103 mmol/L (96-108); Creatinine Clr Calc Pharmacy 60.6; Estimated Glomerular Filt Rate > 60; Glucose Random 92 mg/dL (60-115); Potassium 4.4 mmol/L (3.3-5.1); Sodium 141 mmol/L (135-145); Total Protein 7.2 g/dL (6.5-8.0)
[2023-10-04 10:39] LABS: Troponin-I High Sensitivity < 2.7 ng/L (<3.5-17.0)
[2023-10-04] MEDS: iohexoL 350 MG/ML 100 ML INFUS..BTL IV (12:03)
[2023-10-04] MEDS: Acetaminophen 325 MG TABLET 650 MG PO (13:20)
[2023-10-04 14:34] VITALS: BP 159/81; PULSE 74; RESP 14; TEMP 36.5; O2SAT 95
[2023-10-04] MEDS: traMADoL HCL 50 MG TABLET PO (15:50)
[2023-10-04 16:47] VITALS: BP 132/84; PULSE 87; RESP 17; TEMP 36.9; O2SAT 98
== END 2023-10-04 16:49 | disposition home or self-care (01) ==
PROVIDERS: Physician Assistant Medical; Emergency Provider Emergency Medicine; PCP Internal Medicine
DX: G89.29 Other chronic pain (principal); M79.671 Pain in right foot; L97.929 Non-pressure chronic ulcer of unspecified part of left lower leg with unspecified severity; L97.919 Non-pressure chronic ulcer of unspecified part of right lower leg with unspecified severity; I10 Essential (primary) hypertension
CPT/HCPCS: 36415; 73610; 75635; 80048; 80076; 84484; 85025; 85610; 85730; 93971; 99284; Q9967

== ENCOUNTER 2023-10-04 23:04 | Emergency (ER) | payer OTHER, SELFPAY ==
[2023-10-04 23:11] VITALS: BP 154/88; PULSE 88; RESP 18; TEMP 36.6; O2SAT 94; BMI 35.5
--- NOTE | 2023-10-05 00:18 | ED_ITS ---
HPI - Extremity Problem General Chief complaint: Extremity Problem Stated complaint: foot pain Time Seen by Provider: 10/05/23 00:15 Source: patient Mode of arrival: ambulatory Limitations: no limitations History of Present Illness HPI Narrative: Patient is 78 years old with history of chronic extremity pain arthritis depression was seen here earlier today had a full workup including abdominal CT with runoff which was negative for arterial occlusion comes here for similar pain which is going on for long time patient is taking Tramadol for a while Related Data Home Medications Medication Instructions Recorded Confirmed calcium carb-vit D3-minerals 600 1 tab PO DAILY 09/26/22 06/21/23 mg calcium-200 unit tablet Previous Rx's Medication Instructions Recorded inhalational spacing device #1 ea 04/07/21 (Aerochamber MV spacer) miscellaneous medical supply #1 ea 08/15/21 fluticasone propionate 110 2 puff inhalation BID 30 days #12 10/31/22 mcg/actuation HFA aerosol inhaler grams (Flovent HFA) cholecalciferol (vitamin D3) 25 25 mcg PO DAILY 90 days #90 caps 11/09/22 mcg (1,000 unit) capsule acetaminophen 650 mg 650 mg PO Q8H PRN pain 30 days #90 12/31/22 tablet,extended release tabs mupirocin 2 % topical ointment 1 appl topical TID #22 grams 03/03/23 silver sulfadiazine 1 % topical 1 appl topical BID #25 grams 03/07/23 cream (Silvadene) mineral oil (Fleet Mineral Oil 133 ml MS DAILY PRN constipation 04/08/23 enema) #266 mL polyethylene glycol 3350 17 17 g PO DAILY PRN constipation 04/08/23 gram/dose oral powder (Miralax) #238 grams albuterol sulfate 2.5 mg/3 mL 2.5 mg (3 mL) inhalation QID PRN 04/24/23 (0.083 %) solution for nebulization shortness of breath or wheezing 30 days #180 mL mirtazapine 15 mg tablet 15 mg PO BEDTIME 90 days #90 tabs 06/03/23 zolpidem 10 mg tablet 10 mg PO BEDTIME PRN sleep 30 days 06/03/23 #30 tabs atorvastatin 80 mg tablet 80 mg PO BEDTIME 90 days #90 tabs 06/17/23 alendronate 70 mg tablet 70 mg PO QWEEK 3 months #13 tabs 07/13/23 albuterol sulfate 90 mcg/actuation 1 puff inhalation Q6H #8.5 ea 07/20/23 aerosol inhaler candesartan 32 mg tablet 32 mg PO DAILY #90 tabs 07/22/23 sennosides 8.6 mg tablet (senna) 8.6 mg PO DAILY #90 tabs 07/31/23 lactulose 20 gram/30 mL oral 20 g (30 mL) PO DAILY PRN 08/14/23 solution constipation #420 mL lubiprostone 24 mcg capsule 24 mcg PO BID #60 caps 08/14/23 (Amitiza) prednisone 5 mg tablet See Rx Instructions PO .COMPLEX 09/09/23 #44 tabs folic acid 1 mg tablet 1 mg PO DAILY #90 tabs 09/13/23 methotrexate sodium 2.5 mg tablet 15 mg (6 x 2.5 mg) PO QWEEK #48 09/13/23 tabs lidocaine 5 % topical ointment 1 appl topical TID PRN pain #50 09/14/23 grams loratadine 10 mg tablet 10 mg PO DAILY PRN allergy 09/25/23 symptoms 90 days #90 tabs doxycycline monohydrate 100 mg 100 mg PO BID 10 days #20 caps 09/26/23 capsule tramadol 50 mg tablet 50 mg PO BID PRN pain 30 days #60 09/30/23 tabs disposable bed pads #1 ea 10/01/23 gloves #1 ea 10/01/23 gabapentin 300 mg capsule 300 mg PO BID #60 caps 10/05/23 mupirocin 2 % topical ointment 1 appl topical BID #22 grams 10/05/23 Allergies Allergy/AdvReac Type Severity Reaction Status Date / Time morphine [MORPHINE] Allergy Intermediate VOMITING Verified 10/04/23 08:40 oxaprozin [From Daypro] Allergy Unknown RASH Verified 10/04/23 08:40 hydroxychloroquine AdvReac Intermediate Abdominal Verified 10/04/23 08:40 Pain budesonide [Symbicort] AdvReac Unknown nausea and Verified 10/04/23 08:40 vomiting Review of Systems 2 Review of Systems: Yes all other systems are reviewed and are negative PMFSH Past Medical History Medical History Constipation Osteoporosis Allergic rhinitis Insomnia Osteoarthritis Obesity (BMI 30-39.9) Depression Anxiety Osteopenia Vitamin D deficiency GERD without esophagitis Asthma Paroxysmal atrial fibrillation Pure hypercholesterolemia Benign essential hypertension PAF (paroxysmal atrial fibrillation) Surgical History History of colonoscopy Family History Family History Father CVD (cardiovascular disease) Stroke Mother Medical history unknown Social History Social History Housing: Apartment Alcohol intake: never Patient Tobacco Use Status: Never used Tobacco Smoked in Last 30 Days: No e-Cigarette/Vaping Use: Never Used Second Hand Smoke Exposure: Yes Use of substances other than those prescribed or required for medical reasons: No Advance Directives: No Advance Directives Information Provided: Yes service: No Current occupational status: disabled Cognitive needs: No Hearing needs: No Vision needs: Yes (glasses) Physical Exam 2 Vital Signs: Vital Signs: Last Vital Signs Temp 97.8 F 10/04/23 23:11 Pulse 88 10/04/23 23:11 Resp 18 10/04/23 23:11 BP 154/88 H 10/04/23 23:11 Pulse Ox 94 10/04/23 23:11 O2 Del Method Room Air 10/04/23 23:11 BMI result Body Mass Index 35.5 Appearance: Alert. Oriented X3. No acute distress. Eyes: PERRLA, No Nystagmus ENT: Pharynx normal. Oral Mucosa moist Neck: Normal inspection. Neck supple. CVS: Normal heart rate and rhythm. Pulses normal. Respiratory: No respiratory distress. Equal air entry bilateral, no wheezing/rales/rhonchi Abdomen: Soft and nontender. Bowel sounds are present, no mass palpable, no CVA tenderness Skin: Skin warm and dry. Normal skin color. Normal skin turgor. Extremities: No lower extremity edema. No calf tenderness good dorsalis pedis pulses bilaterally chronic venous stasis ulcers with scab formation both lower extremity Neuro: Oriented X 3. No motor deficit. No sensory deficit.No cerebellar signs , cranial nerves II-XII intact Medications Administered Discontinued Medications Generic Name Dose Route Start Last Admin Trade Name Freq PRN Reason Stop Dose Admin Gabapentin 300 mg 10/05/23 00:31 10/05/23 00:38 Gabapentin 300 Mg Capsule PO 10/05/23 00:32 300 mg ONCE ONE Administration Medical Decision Making Medical Decision Making [facility] Narrative: Patient has chronic venous stasis ulcer with negative acute arterial occlusion Tramadol for pain will start on gabapentin advised to use Bactroban ointment for local advised to keep the leg elevated Differential Diagnosis Differential Diagnoses: The differential diagnosis associated with the presentation includes Venous stasis ulcer/dermatitis Discharge Plan Discharge Clinical Impression: Chronic cutaneous venous stasis ulcer Patient Disposition: Home, Self-Care Instructions: Stasis Dermatitis (ED) Additional Instructions: Keep your legs elevated Gabapentin for pain Apply mupirocin ointment twice daily on the wound Follow with PCP Prescriptions: New gabapentin 300 mg capsule 300 mg PO BID Qty: 60 0RF mupirocin 2 % ointment 1 appl topical BID Qty: 22 0RF No Action (DME) miscellaneous medical supply Misc 0 .Route Qty: 1 0RF Rx Instructions: Power Lift Chair - As directed - to use indefinatly cholecalciferol (vitamin D3) 25 mcg (1,000 unit) capsule 25 mcg PO DAILY 90 Days Qty: 90 3RF acetaminophen 650 mg tablet extended release 650 mg PO Q8H PRN (Reason: pain) 30 Days Qty: 90 3RF albuterol sulfate 2.5 mg /3 mL (0.083 %) solution for nebulization 2.5 mg inhalation QID PRN (Reason: shortness of breath or wheezing) 30 Days Qty: 180 3RF atorvastatin 80 mg tablet 80 mg PO BEDTIME 90 Days Qty: 90 1RF alendronate 70 mg tablet 70 mg PO QWEEK 90 Days Qty: 13 1RF albuterol sulfate 90 mcg/actuation HFA aerosol inhaler 1 puff inhalation Q6H Qty: 8.5 3RF candesartan 32 mg tablet 32 mg PO DAILY Qty: 90 1RF sennosides [senna] 8.6 mg tablet 8.6 mg PO DAILY Qty: 90 4RF lactulose 20 gram/30 mL solution 20 g PO DAILY PRN (Reason: constipation) Qty: 420 0RF lubiprostone [Amitiza] 24 mcg capsule 24 mcg PO BID Qty: 60 1RF prednisone 5 mg tablet See Rx Instructions PO .COMPLEX Qty: 44 0RF Rx Instructions: take 2 tabs daily for 1 week then remain on 1 tab daily lidocaine 5 % ointment 1 appl topical TID PRN (Reason: pain) Qty: 50 0RF loratadine 10 mg tablet 10 mg PO DAILY PRN (Reason: allergy symptoms) 90 Days Qty: 90 1RF doxycycline monohydrate 100 mg capsule 100 mg PO BID 10 Days Qty: 20 0RF tramadol 50 mg tablet 50 mg PO BID PRN (Reason: pain) 30 Days Qty: 60 0RF (DME) gloves Large See Rx Instructions .Route .MEDSUPPLY Qty: 1 0RF Rx Instructions: As directed (DME) disposable bed pads See Rx Instructions .Route .MEDSUPPLY Qty: 1 0RF Rx Instructions: As directed 4 per day calcium carbonate-vit D3-min 600 mg calcium- 200 unit tablet 1 tab PO DAILY mineral oil [Fleet Mineral Oil] Enema 133 ml MS DAILY PRN (Reason: constipation) Qty: 266 0RF Rx Instructions: discard any unused portion polyethylene glycol 3350 [Miralax] 17 gram/dose powder 17 g PO DAILY PRN (Reason: constipation) Qty: 238 0RF mupirocin 2 % ointment 1 appl topical TID Qty: 22 0RF silver sulfadiazine [Silvadene] 1 % cream 1 appl topical BID Qty: 25 0RF Rx Instructions: apply a 1.5 mm thickness (DME) Aerochamber MV Spacer See Rx Instructions .Route Qty: 1 0RF Rx Instructions: As directed fluticasone propionate [Flovent HFA] 110 mcg/actuation HFA aerosol inhaler 2 puff inhalation BID 30 Days Qty: 12 5RF zolpidem 10 mg tablet 10 mg PO BEDTIME PRN (Reason: sleep) 30 Days Qty: 30 2RF mirtazapine 15 mg tablet 15 mg PO BEDTIME 90 Days Qty: 90 1RF folic acid 1 mg tablet 1 mg PO DAILY Qty: 90 1RF methotrexate sodium 2.5 mg tablet 15 mg PO QWEEK Qty: 48 0RF
[2023-10-05] MEDS: Gabapentin 300 MG CAPSULE PO (00:38)
--- NOTE | 2023-10-05 00:41 | PC.NURSE ---
pt medicated according to mar
[2023-10-05 01:00] VITALS: BP 140/70; PULSE 76; RESP 17; TEMP 36.7; O2SAT 95
[2023-10-05 02:12] VITALS: BP 140/70; PULSE 76; RESP 17; TEMP 36.7; O2SAT 95
== END 2023-10-05 01:00 | disposition home or self-care (01) ==
PROVIDERS: Emergency Provider Internal Medicine
DX: I87.2 Venous insufficiency (chronic) (peripheral) (principal); L97.919 Non-pressure chronic ulcer of unspecified part of right lower leg with unspecified severity; L97.929 Non-pressure chronic ulcer of unspecified part of left lower leg with unspecified severity; I10 Essential (primary) hypertension; I48.0 Paroxysmal atrial fibrillation
CPT/HCPCS: 99283; 99284

== ENCOUNTER 2023-10-09 10:04 | Outpatient (AMB) | payer OTHER, SELFPAY ==
--- NOTE | 2023-10-09 10:07 | MHC.PC.OV ---
Vital Signs 10/09/23 10:08 Height 5 ft 1 in Weight 185 lb BMI 35.0 BP 112/70 Blood Pressure Location Lt brachial Position Sitting Pulse 71 Pulse Source Pulse Oximeter Pulse Oximetry (%) 97 Oxygen Delivery Method Room Air Intake Visit Reasons: possible ulcers on both feet Intake Note: Patient is here today to follow up on possible ulcer on both feet. Volumetric Weigher Required: Yes Volumetric Weigher Language: Academic Administrator Name: Diann (Daughter) Information Interpreted: non-clinical & clinical Cycle Director: Present Accompanied by: Family/Other Allergies Penicillins Allergy (Intermediate, Verified 10/09/23 11:07) Hives oxaprozin [From Daypro] Allergy (Unknown, Verified 10/09/23 11:07) RASH hydroxychloroquine Adverse Reaction (Intermediate, Verified 10/09/23 11:07) Abdominal Pain budesonide [Symbicort] Adverse Reaction (Unknown, Verified 10/09/23 11:07) nausea and vomiting Medication List - Last Reconciled 10/09/23 by Milton Ackerman MD acetaminophen ER 650 mg PO Q8H PRN 30 days Advair HFA 115-21 mcg/actuation (fluticasone propion-salmeterol) 2 puffs inhalation BID NS albuterol sulfate 2.5 mg (3 mL) inhalation QID PRN 30 days albuterol sulfate 90 mcg/actuation 1 puff inhalation Q6H alendronate 70 mg PO QWEEK 3 months atorvastatin 80 mg PO BEDTIME 90 days calcium carbonate-vit D3-min 600 mg calcium- 200 unit 1 tab PO DAILY candesartan 32 mg PO DAILY cholecalciferol (vitamin D3) 25 mcg PO DAILY 90 days [disposable bed pads As directed 4 per day ] doxycycline monohydrate 100 mg PO BID 10 days doxycycline monohydrate 100 mg PO BID 10 days fluticasone propionate 110 mcg/actuation (Flovent HFA) 2 puffs inhalation BID 30 days folic acid 1 mg PO DAILY gabapentin 300 mg PO BID [gloves As directed] inhalational spacing device (Aerochamber MV spacer) As directed lactulose 20 grams (30 mL) PO DAILY PRN lidocaine 5% 1 appl topical TID PRN loratadine 10 mg PO DAILY PRN 90 days lubiprostone (Amitiza) 24 mcg PO BID methotrexate sodium 15 mg (6 x 2.5 mg) PO QWEEK mineral oil (Fleet Mineral Oil enema) 133 mL MA DAILY PRN mirtazapine 15 mg PO BEDTIME 90 days miscellaneous medical supply Power Lift Chair - As directed - to use indefinatly mupirocin 2% 1 appl topical TID mupirocin 2% 1 appl topical BID mupirocin 2% 1 appl topical TID oxycodone 10 mg PO BEDTIME PRN polyethylene glycol 3350 (Miralax) 17 grams PO DAILY PRN prednisone 4 tablets x 2 days, then 3 tablets x 2 days, then 2 tablets x 2 days, then 1 tablet x 2 days 8 days prednisone take 2 tabs daily for 1 week then remain on 1 tab daily sennosides (senna) 8.6 mg PO DAILY silver sulfadiazine 1% (Silvadene) 1 appl topical BID tramadol 50 mg PO BID PRN 30 days zolpidem 10 mg PO BEDTIME PRN 30 days Tobacco use date assessed: 10/09/23 HPI possible ulcers on both feet HPI Details Patient comes in today for her follow up visit - she left last month at her original appointment on 09/10/23 before she was seen States that she again has broken out in multiple painful ulcers over both ankles and lower legs about 2 to 3 weeks ago She has been following up with vascular surgery at [facility] and so far has had arterial duplex done in February 2023, venous doppler and aorta CTA done last week on 10/03/2033 and all of these have come out normal She is scheduled to see Dr. Rees in a couple of weeks for vascular surgery consultation / second opinion She was offered a referral again to the [facility] but she declined - states that she does not want them to do any wound scraping or debridement again as the process is very painful for her She has been seen by rheumatology a few weeks ago and started on Hydroxychloroquine for suspected vasculitis or autoimmune disorder as her previous ulcers appear to have responded to steroid Tx - she has a follow up appointment with rheumatology in a month She has reportedly been seen and evaluated by dermatology (Dr. Sandoval) for her lower extremity wounds a few months ago and was diagnosed with stasis dermatitis and ulcer, with no further recommendations other than what patient has already been doing Patient is requesting also for something to help with the pain, mostly at night Relates that the Oxycodone Rx I gave her a few months ago helped a lot and is wondering if she can again get a few of these Adds that her Flovent HFA has not been helping much with her breathing recently (was still experiencing some dyspnea and DESAI back then) and her daughter gave her own asthma inhaler (Advair) to patient to use and she has been doing much better on that since and would like to know if she can be switched over to Advair herself She denies any fever, headaches or dizziness Denies any chest pains No nausea/vomiting, no abdominal pain No change in bowel habits noted Had her follow up labs done last month - to discuss her results She admits also that she stopped taking her Atorvastatin a few months ago as she did not want to be taking too many meds- fel that she was taking too much PFSH Medical History Constipation Osteoporosis Allergic rhinitis Insomnia Osteoarthritis Obesity (BMI 30-39.9) Depression Anxiety Osteopenia Vitamin D deficiency GERD without esophagitis Asthma Paroxysmal atrial fibrillation Pure hypercholesterolemia Benign essential hypertension PAF (paroxysmal atrial fibrillation) Surgical History History of colonoscopy Family History Father CVD (cardiovascular disease) Stroke Mother Medical history unknown Social History Housing: Apartment Alcohol intake: never Patient Tobacco Use Status: Never used Tobacco e-Cigarette/Vaping Use: Never Used Second Hand Smoke Exposure: Yes service: No Current occupational status: disabled Cognitive needs: No Hearing needs: No Vision needs: Yes (glasses) Questionnaire PHQ-9 Over the last 2 weeks, how often have you been bothered by any of the following problems? 1. Little interest or pleasure in doing things: not at all 2. Feeling down, depressed, or hopeless: several days 3. Trouble falling or staying asleep, or sleeping too much: more than half the days 4. Feeling tired or having little energy: nearly every day 5. Poor appetite or overeating: not at all 6. Feeling bad about yourself - or that you are a failure or have let yourself or your family down: not at all 7. Trouble concentrating on things, such as reading the newspaper or watching television: not at all 8. Moving or speaking so slowly that other people could have noticed. Or the opposite - being so fidgety or restless that you have been moving around a lot more than usual: several days 9. Thoughts that you would be better off or of hurting yourself in some way: not at all Total score: 7 Depression Screening Interpretation: Positive Depression Screening Follow-up: Existing condition and In treatment Depression Screening Done: Yes 56451 - PHQ-9 Billing: Yes Source: Developed by Drs. Abisai Peñaloza, Celina Simeon, Ayad Briceno and colleagues, with an educational elif from [employer]. Thrive Questionnaire Date Thrive assessed: 10/09/23 I am a: Patient What is your living situation today?: I have a steady place to live Within the past 12 months, did the food you bought not last and you didn't have the money to get more?: Never true Within the past 12 months, did you worry whether your food would run out before you got money to buy more?: Never true Do you have trouble paying for medicines?: No Do you have trouble getting transportation to medical appointments?: No Do you have trouble paying your heating and electricity bill?: No Do you have trouble taking care of your child, family member or friend?: No Do you have trouble with day-to-day activities such as bathing, preparing meals, shopping, managing finances, etc.?: No Are you currently unemployed and looking for a job?: No Are you interested in more education?: No Please select the resources that you would like help with: None Currently or been in a relationship where the following occur: no concerns reported THRIVE Score: 0 AUDIT C Alcohol Use Questionnaire (AUDIT-C) 1. How often do you have a drink containing alcohol?: Never 3. How often do you have six or more drinks on one occasion?: Never Total Score: 0 Score Reviewed/Action Taken: Yes FARIDEH-7 AMB Questionnaire FARIDEH-7 Date FARIDEH - 7 assessed: 09/10/23 Source: Developed by Drs. Abisai Peñaloza, Celina Simeon, Ayad Briceno and colleagues, with an educational elif from [employer]. Review of Systems Const Denies chills, Reports difficulty sleeping (due to pain), Reports fatigue, Denies fever(s) and Denies headache(s) ENT Denies dysphagia, Denies dizziness, Denies otalgia, Denies headache(s), Denies odynophagia and Denies sore throat Card Denies chest pain, Denies palpitations and Reports dyspnea on exertion (mild) Resp Denies chest congestion, Denies cough, Reports dyspnea on exertion (mild) and Denies wheezing GI Details: (+) painful hemorrhoids often Denies abdominal pain, Reports constipation (on and off), Denies dysphagia, Denies heartburn, Denies diarrhea, Denies nausea, Denies odynophagia and Denies vomiting Denies difficulty voiding, Denies nocturia, Denies dysuria and Reports urinary incontinence (mostly urge incontinence, especially at night) Musc Reports arthralgias (involving multiple joints, especially her knees) Skin/Breast Reports skin ulcer ((+) multiple painful sores/ulcers on both lower legs distally and on ankles) Neuro Denies dizziness and Denies headache(s) Endo Reports fatigue and Denies palpitations Aller/Immun Denies wheezing Physical exam (Primary Care) Vital Signs: Last Vital Signs Pulse 71 10/09/23 10:08 BP 112/70 10/09/23 10:08 Pulse Ox 97 10/09/23 10:08 Oxygen Delivery Method Room Air 10/09/23 10:08 BMI result Body Mass Index 35.0 Tobacco/Smoking Status: Tobacco use Status Tobacco use date assessed 10/09/23 10/09/23 10:15 Patient Tobacco Use Status Never used Tobacco 10/09/23 10:15 e-Cigarette/Vaping Use Never Used 10/09/23 10:15 PHQ-9: PHQ-9 Score PHQ-9: Total score 7 10/09/23 17:06 Depression Screening Interpretation: Positive Depression Screening Follow-up: Existing condition and In treatment Thrive Assessment: Date of Thrive Assessment Date Thrive assessed 10/09/23 10/09/23 14:19 Currently or been in a relationship where the following occur: no concerns reported Const General: no acute distress and alert HENMT Ears: TM's normal bilaterally and EAC's normal Throat: Yes posterior oropharynx normal and Yes tonsils normal (no TP congestion) Neck Neck: Yes no lymphadenopathy and Yes supple Thyroid: Thyroid normal Resp Auscultation: clear to auscultation bilaterally, no rales, no rhonchi, no wheezes and diminished lung sounds (slightly) bilateral Cardio Rate: regular rate Rhythm: regular rhythm Heart sounds: no murmurs GI Palpation (GI): Soft to palpation and nontender Auscultation: normal bowel sounds General: Yes no CVA tenderness Back/Spine/Pelvis Back: no CVA tenderness Thoracic/Lumbar Spine: No lumbar spinal tenderness Skin Other: (+) multiple, non-draining, crusting ulcers noted over the distal half of both lower legs, including around the ankle areas and over the heels bilaterally Extrem General: Yes no clubbing, cyanosis or edema Results Reviewed Results Reviewed: Laboratory Tests 09/09/23 09/09/23 09/09/23 07:59 08:08 08:08 WBC Hgb Hct Plt Count Sodium Potassium Creatinine Estimated GFR Fasting Glucose 95 Calcium AST ALT Triglycerides 197 H Cholesterol 232 H LDL Cholesterol, Calc 142 H HDL Cholesterol 51 25-OH Vitamin D Total 26.9 L TSH 2.31 PTH Intact 86.7 H Ur Specific [place] 1.015 Urine Protein Negative Urine Glucose (UA) Negative Urine Blood Trace H Urine Nitrite Negative Ur Leukocyte Esterase Trace H 10/04/23 10/04/23 10:08 10:08 WBC 8.9 Hgb 13.7 Hct 43.8 Plt Count 268 Sodium 141 Potassium 4.4 Creatinine 0.75 Estimated GFR > 60 Fasting Glucose Calcium 9.7 AST 17 ALT 15 Triglycerides Cholesterol LDL Cholesterol, Calc HDL Cholesterol 25-OH Vitamin D Total TSH PTH Intact Ur Specific [place] Urine Protein Urine Glucose (UA) Urine Blood Urine Nitrite Ur Leukocyte Esterase Assessment and Plan Assessment & Plan (1) Ulcers of both lower extremities: Code(s): L97.919 - Non-pressure chronic ulcer of unspecified part of right lower leg with unspecified severity; L97.929 - Non-pressure chronic ulcer of unspecified part of left lower leg with unspecified severity Qualifiers: Non-pressure ulcer stage: unspecified non-pressure ulcer stage Qualified Code(s): L97.919 - Non-pressure chronic ulcer of unspecified part of right lower leg with unspecified severity; L97.929 - Non-pressure chronic ulcer of unspecified part of left lower leg with unspecified severity Plan: Patient has been seen by [facility] in the past and was advised that her ulcers are non-vacular in origin as previous workups, including arterial duplex, venous doppler, angiogram and a recent CTA of the aorta, have all come back normal Her painful ulcers have apparently responded to empiric Tx with oral prednisone in the past so there is a very likely possibility that her ulcers are autoimmune in nature even though vasculitis work ups done by rheumatology a few months ago were mostly negative She was referred to dermatology for consideration for skin biopsy and was seen by Dr. Sandoval in June 2023 but he seems to think that these are stasis ulcers and did not warrant further investigation, which patient has apparently declined anyway Have offered to refer her back to the Wound Clinic today but patient declined Will start her empirically for now again on oral Doxycycline 100 mg BID x 10 days and oral Prednisone taper Per request, will also provide her with Rx for #7 tablets of Oxycodone 10 mg to take at bedtime ONLY as needed for severe pain She is advised to keep her upcoming appt with Dr. Rees (vascular surgery) and follow up with rheumatology as scheduled (2) Pure hypercholesterolemia: Code(s): E78.00 - Pure hypercholesterolemia, unspecified Plan: Results of her labs done last month reviewed and discussed with patient - cautioned that her cholesterol levels have increased significantly from previous as patient self-discontinued her Atorvastatin a couple of months ago as she did not want to be taking so many medications Have advised her that this did not work out too well for her as her cholesterol levels have increased over 50 points from previous on average and the last thing she needs to be dealing with now is vascular and coronary atherosclerosis, which will compound her recurrent issues with painful ulcers Reinforced low cholesterol diet States that she will start back on her Atorvastatin 80 mg QD Will recheck her labs and fasting lipids in 3 months for follow-up (3) Benign essential hypertension: Code(s): I10 - Essential (primary) hypertension Plan: Reinforced low-sodium diet - goal is systolic BP of at least 140 mm or less Continue Candesartan 32 mg QD; HCTZ was previously discontinued (4) Paroxysmal atrial fibrillation: Code(s): I48.0 - Paroxysmal atrial fibrillation Plan: Patient currently remains in sinus rhythm and is asymptomatic Follow up with Cardiology as scheduled (5) Asthma: Code(s): J45.909 - Unspecified asthma, uncomplicated Qualifiers: Asthma complication type: uncomplicated Asthma persistence: persistent Asthma severity: moderate Qualified Code(s): J45.40 - Moderate persistent asthma, uncomplicated Plan: Per request, will switch her from Flovent HFA 110 mcg 2 inhalations BID to Advair HFA 115-21 mcg 2 inhalations BID Continue Albuterol HFA 1 to 2 inhalations Q 6 hours PRN; states that she uses her nebulizer only when needed (6) Allergic rhinitis: Code(s): J30.9 - Allergic rhinitis, unspecified Qualifiers: Allergic rhinitis seasonality: seasonal Allergic rhinitis trigger: pollen Qualified Code(s): J30.1 - Allergic rhinitis due to pollen Plan: Continue Loratadine 10 mg QD PRN (7) GERD without esophagitis: Code(s): K21.9 - Gastro-esophageal reflux disease without esophagitis Plan: Dietary restrictions reinforced Continue Omeprazole 40 mg QD (8) Vitamin D deficiency: Code(s): E55.9 - Vitamin D deficiency, unspecified Plan: Continue Vitamin D3 1000 units QD - Rx refilled (9) Osteoporosis: Code(s): M81.0 - Age-related osteoporosis without current pathological fracture Qualifiers: Osteoporosis type: unspecified Presence of current pathological fracture: without current pathological fracture Qualified Code(s): M81.0 - Age-related osteoporosis without current pathological fracture Plan: Repeat BMD done in July 2022 revealed that patient's BMD has declined significantly from her previous scan in July 2017, especially in the left femur, which has a 23.2% decrease from previous Her A/P spine BMD is mostly unchanged Her lowest T-score is now at -3.2 in the femoral neck Considering that she has been on Alendronate 70 mg Q week for years (unclear when she actually started taking it but most likely > 5 years, will have patient finish up her current supply of Alendronate, then will D/C the Rx Will also consider having her see endocrinology for this once her current issues with her lower extremity ulcers are under better control (10) Constipation: Code(s): K59.00 - Constipation, unspecified Qualifiers: Constipation type: unspecified constipation type Qualified Code(s): K59.00 - Constipation, unspecified Plan: Reinforced increased oral fluids and dietary fiber Continue Amitiza 24 mcg BID (11) Primary osteoarthritis involving multiple joints: Code(s): M89.49 - Other hypertrophic osteoarthropathy, multiple sites Plan: Mostly involving her right knee -? has received cortisone injection from Orthopedics in the past without any significant relief Have advised again that physical therapy can help with her knee pain if her symptoms get worse -? patient does not want to pursue this for now; states that she has been able to manage her knee pain so far Continue Tramadol 50 mg TID PRN; per request, will try lowering her Gabapentin back to 100 mg BID Follow-up with Orthopedics as scheduled or as needed (12) Insomnia: Code(s): G47.00 - Insomnia, unspecified Qualifiers: Insomnia type: unspecified Qualified Code(s): G47.00 - Insomnia, unspecified Plan: Sleep hygiene reinforced Continue Zolpidem 10 mg Q HS PRN (13) Anxiety: Code(s): F41.9 - Anxiety disorder, unspecified Plan: Continue Lorazepam 0.5 mg 2 to 3 times a day as needed Mirtazapine also appears to be helping (14) Depression: Code(s): F32.9 - Major depressive disorder, single episode, unspecified Qualifiers: Active/Remission status: currently active Depression Type: major depressive disorder Major depression episode severity: unspecified Major depression recurrence: recurrent Qualified Code(s): F33.9 - Major depressive disorder, recurrent, unspecified Plan: Continue Mirtazapine 15 mg Q HS (15) Obesity (BMI 30-39.9): Code(s): E66.9 - Obesity, unspecified Plan: Reinforced diet/exercise as tolerated/lose weight Plan Follow up in 3 months Orders: Orders C Reactive Protein 3 Months L97.919 - Non-pressure chronic ulcer of unspecified part of right lower leg with unspecified severity, L97.929 - Non-pressure chronic ulcer of unspecified part of left lower leg with unspecified severity TSH reflex Free T4 3 Months E78.00 - Pure hypercholesterolemia, unspecified Lipid Panel 3 Months E78.00 - Pure hypercholesterolemia, unspecified Comprehensive [place]. Panel Fast 3 Months E78.00 - Pure hypercholesterolemia, unspecified Complete Blood Count Auto Diff 3 Months D64.9 - Anemia, unspecified, L97.919 - Non-pressure chronic ulcer of unspecified part of right lower leg with unspecified severity, L97.929 - Non-pressure chronic ulcer of unspecified part of left lower leg with unspecified severity Erythrocyte Sedimentation Rate 3 Months L97.919 - Non-pressure chronic ulcer of unspecified part of right lower leg with unspecified severity, L97.929 - Non-pressure chronic ulcer of unspecified part of left lower leg with unspecified severity Vitamin B12 and Folate 3 Months E53.8 - Deficiency of other specified B group vitamins Vitamin D 25-OH Total 3 Months E55.9 - Vitamin D deficiency, unspecified UA CC w/rflx Micro + Cult 3 Months R30.0 - Dysuria Medications: New doxycycline monohydrate 100 mg PO BID 20 caps 0RF 10 days prednisone 4 tablets x 2 days, then 3 tablets x 2 days, then 2 tablets x 2 days, then 1 tablet x 2 days 20 tabs 0RF 8 days J45.901 - Unspecified asthma with (acute) exacerbation, M25.50 - Pain in unspecified joint Advair HFA 115-21 mcg/actuation (fluticasone propion-salmeterol) administer with spacer 2 puffs inhalation BID 12 grams 3RF NS mupirocin 2% 1 appl topical TID 22 grams 2RF Changed From oxycodone Partial Fill upon patient request. 10 mg PO Q8H PRN 7 tabs 0RF pain To oxycodone Partial Fill upon patient request. 10 mg PO BEDTIME PRN 7 tabs 0RF severe pain Refilled cholecalciferol (vitamin D3) 25 mcg PO DAILY 90 caps 3RF 90 days Coding Level of Care Code Est Pt Level 4 (05956) Diagnoses Ulcers of both lower extremities, unspecified ulcer stage L97.919; L97.929 Non-pressure ulcer stage: unspecified non-pressure ulcer stage Pure hypercholesterolemia E78.00 Benign essential hypertension I10 Paroxysmal atrial fibrillation I48.0 Moderate persistent asthma without complication J45.40 Asthma complication type: uncomplicated Asthma persistence: persistent Asthma severity: moderate Seasonal allergic rhinitis due to pollen J30.1 Allergic rhinitis seasonality: seasonal Allergic rhinitis trigger: pollen GERD without esophagitis K21.9 Vitamin D deficiency E55.9 Osteoporosis without current pathological fracture, unspecified osteoporosis type M81.0 Osteoporosis type: unspecified Presence of current pathological fracture: without current pathological fracture Constipation, unspecified constipation type K59.00 Constipation type: unspecified constipation type Primary osteoarthritis involving multiple joints M89.49 Insomnia, unspecified type G47.00 Insomnia type: unspecified Anxiety F41.9 Episode of recurrent major depressive disorder, unspecified depression episode severity F33.9 Active/Remission status: currently active Depression Type: major depressive disorder Major depression episode severity: unspecified Major depression recurrence: recurrent Obesity (BMI 30-39.9) E66.9
[2023-10-09 10:08] VITALS: BP 112/70; PULSE 71; O2SAT 97; BMI 35.0
== END 2023-10-09 11:08 | disposition home or self-care (01) ==
PROVIDERS: Visit Provider Internal Medicine
DX: I48.0 Paroxysmal atrial fibrillation (principal); L97.919 Non-pressure chronic ulcer of unspecified part of right lower leg with unspecified severity; L97.929 Non-pressure chronic ulcer of unspecified part of left lower leg with unspecified severity; F33.9 Major depressive disorder, recurrent, unspecified; E78.00 Pure hypercholesterolemia, unspecified; I10 Essential (primary) hypertension; J45.40 Moderate persistent asthma, uncomplicated; J30.1 Allergic rhinitis due to pollen; K21.9 Gastro-esophageal reflux disease without esophagitis; E55.9 Vitamin D deficiency, unspecified; M81.0 Age-related osteoporosis without current pathological fracture; K59.00 Constipation, unspecified
CPT/HCPCS: 99214

== ENCOUNTER 2023-10-22 10:29 | Outpatient (AMB) | payer OTHER, SELFPAY ==
[2023-10-22 10:31] VITALS: BMI 35.0
--- NOTE | 2023-10-22 10:31 | A.OFFVIS_ITS ---
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 Pt states they are painful. She states there was a yellowish discharge that was coming out of the ulcers but states the discharge has decreased a lot. 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 She was seen actually in our emergency room on 10/04/[address] angiogram with runoff. Of note she has had prior angiogram by Dr. Stern and Dr. Street which she reports was essentially negative. She has bilateral medial calf ulcerations along with a left Achilles ulcer. She does have some mild swelling and some varicosities. The ulcers have been a source of pain and discomfort for her. She now presents to us for vascular evaluation. [facility] Medical History Constipation Osteoporosis Allergic rhinitis Insomnia Osteoarthritis Obesity (BMI 30-39.9) Depression Anxiety Osteopenia Vitamin D deficiency GERD without esophagitis Asthma Paroxysmal atrial fibrillation Pure hypercholesterolemia Benign essential hypertension PAF (paroxysmal atrial fibrillation) Surgical History History of colonoscopy Family History Father CVD (cardiovascular disease) Stroke Mother Medical history unknown Social History Housing: Apartment Alcohol intake: never Patient Tobacco Use Status: Never used Tobacco e-Cigarette/Vaping Use: Never Used Second Hand Smoke Exposure: Yes service: No Current occupational status: disabled Cognitive needs: No Hearing needs: No Vision needs: Yes (glasses) Review of Systems Const Reports as per HPI ENT Reports no additional complaints Card Denies chest pain, Denies chest pain at rest and Denies chest pain with activity Resp Denies chest congestion and Denies cough GI Reports no additional complaints Musc Details: pain over varicosities, aching of lower extremities, swelling, cramping, heaviness and tiredness, itching Denies abnormal gait Skin/Breast Reports pruritus and Denies wounds Neuro Reports no additional complaints and Denies abnormal gait Psych Denies no additional complaints Physical Exam Vital Signs: BMI result Body Mass Index 35.0 Const General: cooperative, healthy appearing and comfortable Orientation/consciousness: oriented to person, oriented to place and oriented to time Neck Carotids: no bruits Chest Chest palpation & inspection: normal inspection of the chest and normal palpation of entire chest wall Resp Effort & Inspection: normal respiratory effort and able to speak in complete sentences Cardio Rate: regular rate Heart sounds: S1 normal heart sound present and S2 normal heart sound present Peripheral pulses: Peripheral pulses 2+ throughout GI Inspection: Yes normal to inspection Skin Other: +2 edema, active ulcers bilateral lower extremity CEAP Classification C6 - active ulcers Ep - Etiology Primary As - superficial veins P - reflux General skin exam: dry skin Neuro General: oriented to person, oriented to place and oriented to time Extrem Right lower extremity: full ROM, normal capillary refill and edema Left lower extremity: full ROM, normal capillary refill and edema Psych Mental Status: mental status grossly normal Assessment & Plan Assessment & Plan (1) Varicose veins of right lower extremity with inflammation: Code(s): I83.11 - Varicose veins of right lower extremity with inflammation Plan: In short, the patient has evidence of venous insufficiency along with ulcers. I have discussed the pathophysiology with the patient. In addition I have provided informational material regarding venous disease to the patient. We have discussed conservative measures including compression, elevation, and exercise. I have also provided a handout regarding appropriate use of compression stockings and where to purchase good compression stockings as well. I have taken the liberty of ordering venous insufficiency testing with the patient. They will follow up with me after testing. The patient had an opportunity to ask questions regarding the treatment plan. All questions were answered. Imaging studies, laboratory studies and physical exam results were discussed and reviewed in detail. No major barriers to understanding were identified. The patient expressed understanding and agreement with the above treatment plan. The patient is aware they should contact our office by phone for worsening of the current condition or the appearance of new symptoms. Thank you for allowing me to participate in the vascular care of this patient. If you have any questions or concerns regarding the treatment for the above condition please do not hesitate to contact me. The office telephone contact is [phone]. This note is constructed using voice recognition software. While every effort has been made to ensure accuracy, medical transcriptionist errors may have been included. Thank you for allowing me to participate in the care of your patient. Yours sincerely, Orion Rees MD, FACS, R.P.V.I. Orders: Orders US venous duplex LE BI 1 Week I83.11 - Varicose veins of right lower extremity with inflammation Coding Level of Care Code New Pt Level 4 (44749) Diagnoses Varicose veins of right lower extremity with inflammation I83.11
== END 2023-10-22 11:11 | disposition home or self-care (01) ==
PROVIDERS: Visit Provider Surgery Vascular Surgery
DX: I83.11 Varicose veins of right lower extremity with inflammation (principal)
CPT/HCPCS: 99203

== ENCOUNTER → 2023-10-22 10:29 | Outpatient (BNVA) | payer OTHER, SELFPAY | PROVIDERS: Visit Provider Surgery Vascular Surgery | DX: I83.11 Varicose veins of right lower extremity with inflammation (principal) | CPT/HCPCS: 99202 ==

== ENCOUNTER 2023-11-01 10:21 | Outpatient (REF) | payer OTHER, SELFPAY ==
--- NOTE | ~2023-11-01 | US_ITS ---
EXAMINATION: US LOWER EXTREMITY VENOUS (REFLUX EXAM), BILATERAL CLINICAL INDICATION: Varicose veins of the right lower extremity COMPARISON: Lower extremity ultrasound 10/04/2023 TECHNIQUE: Color flow triplex imaging and compression Doppler was performed to evaluate both the deep and the superficial systems bilaterally. To evaluate the superficial system, the examination was performed in the upright position. Color-flow Doppler ultrasound and compression ultrasound were utilized. In addition, maneuvers were utilized to demonstrate reflux. FINDINGS: RIGHT: 1. DEEP VENOUS ULTRASOUND OF THE RIGHT LOWER EXTREMITY: Common Femoral Vein: Compressible, normal respiratory variation and augmented flow. Popliteal Vein: Compressible, normal augmentation. Deep Venous Reflux: There is no evidence of reflux in the deep system in either the common femoral vein or the popliteal vein. There is no evidence of a Hurst's cyst. 2. SUPERFICIAL ULTRASOUND WITH DOPPLER OF RIGHT LOWER EXTREMITY: RIGHT GREAT SAPHENOUS VEIN: Saphenofemoral Junction: 11 mm. No reflux. Proximal Thigh: 6 mm. No reflux. Mid Thigh: 3 mm. No reflux. Above Knee: 2 mm. No reflux. Below Knee: 2 mm. 1991 ms reflux. Mid Calf: 2 mm. 2007 ms reflux. Ankle: 2 mm. No reflux. DUPLICATED GREAT SAPHENOUS VEIN: Yes, laterally and without reflux. RIGHT SMALL SAPHENOUS VEIN: Proximal: 3 mm. No reflux. Distal: 2 mm. No reflux. PERFORATORS: Mid calf: 2-3 mm. No reflux. LEFT: 1. DEEP VENOUS ULTRASOUND OF THE LEFT LOWER EXTREMITY: Common Femoral Vein: Compressible, normal respiratory variation and augmented flow. Popliteal Vein: Compressible, normal augmentation. Deep Venous Reflux: There is no evidence of reflux in the deep system in either the common femoral vein or the popliteal vein. There is no evidence of a Hurst's cyst. 2. SUPERFICIAL ULTRASOUND WITH DOPPLER OF LEFT LOWER EXTREMITY: LEFT GREAT SAPHENOUS VEIN: Saphenofemoral Junction: 8 mm. No reflux. Proximal Thigh: 5 mm. No reflux. Mid Thigh: 2 mm. No reflux. Above Knee: 2 mm. No reflux. Below Knee: 1 mm. No reflux. Mid Calf: 1 mm. No reflux. Ankle: 2 mm. No reflux. DUPLICATED GREAT SAPHENOUS VEIN: Yes, laterally. Measures 7 mm proximally at the thigh to 3 mm just proximal to the knee. No reflux. LEFT SMALL SAPHENOUS VEIN: Proximal: 2 mm. No reflux. Distal: 2 mm. No reflux. PERFORATORS: Mid calf: 3 mm. No reflux US/US venous duplex LE BI IMPRESSION: Short segment segment abnormal superficial reflux within the below knee great saphenous vein. Abnormal lower extremity venous reflux times: Superficial and deep calf veins: >500 ms Femoropopliteal veins: >1000 ms Perforating veins: >350 ms Rosita N, Kinsey J, Ghanshyam L, Raman FIGUEROA, Deric SS, Sravanthi Romo M, Natali WH. Definition of venous reflux in lower-extremity veins.J Vasc Surg. 2003; [phone].
== END 2023-11-01 10:22 | disposition home or self-care (01) ==
LOC: HO.US 10:21
PROVIDERS: Visit Provider Surgery Vascular Surgery
DX: I83.11 Varicose veins of right lower extremity with inflammation (principal)
CPT/HCPCS: 93970

== ENCOUNTER 2023-11-05 08:32 | Outpatient (AMB) | payer OTHER, SELFPAY ==
[2023-11-05 08:36] VITALS: BP 144/82; PULSE 73; O2SAT 96; BMI 34.4
--- NOTE | 2023-11-05 08:36 | A.OFFPC_ITS ---
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 Accompanied by: Daughter Allergies Penicillins Allergy (Intermediate, Verified 11/05/23 09:14) Hives oxaprozin [From Daypro] Allergy (Unknown, Verified 11/05/23 09:14) RASH hydroxychloroquine Adverse Reaction (Intermediate, Verified 11/05/23 09:14) Abdominal Pain budesonide [Symbicort] Adverse Reaction (Unknown, Verified 11/05/23 09:14) nausea and vomiting Medication List - Last Reconciled 11/05/23 by Milton Ackerman MD acetaminophen ER 650 mg PO Q8H PRN 30 days Advair HFA 115-21 mcg/actuation (fluticasone propion-salmeterol) 2 puffs inhalation BID NS albuterol sulfate 2.5 mg continuous nebulization QID PRN albuterol sulfate 90 mcg/actuation 1 puff inhalation Q6H alendronate 70 mg PO QWEEK 3 months atorvastatin 80 mg PO BEDTIME 90 days calcium carbonate-vit D3-min 600 mg calcium- 200 unit 1 tab PO DAILY candesartan 32 mg PO DAILY cholecalciferol (vitamin D3) 25 mcg PO DAILY 90 days [disposable bed pads As directed 4 per day ] doxycycline monohydrate 100 mg PO BID 10 days fluticasone propionate 110 mcg/actuation (Flovent HFA) 2 puffs inhalation BID 30 days folic acid 1 mg PO DAILY gabapentin 300 mg PO BID [gloves As directed] inhalational spacing device (Aerochamber MV spacer) As directed lactulose 20 grams (30 mL) PO DAILY PRN lidocaine 5% 1 appl topical TID PRN loratadine 10 mg PO DAILY PRN 90 days lubiprostone (Amitiza) 24 mcg PO BID methotrexate sodium 15 mg (6 x 2.5 mg) PO QWEEK mineral oil (Fleet Mineral Oil enema) 133 mL NM DAILY PRN mirtazapine 15 mg PO BEDTIME 90 days miscellaneous medical supply Power Lift Chair - As directed - to use indefinatly mupirocin 2% 1 appl topical TID mupirocin 2% 1 appl topical BID mupirocin 2% 1 appl topical TID oxycodone 10 mg PO BEDTIME PRN polyethylene glycol 3350 (Miralax) 17 grams PO DAILY PRN sennosides (senna) 8.6 mg PO DAILY silver sulfadiazine 1% (Silvadene) 1 appl topical BID tramadol 50 mg PO BID PRN 30 days zolpidem 10 mg PO BEDTIME PRN 30 days Tobacco use date assessed: 10/09/23 Fall risk assessment: No Falls in past year Last assessed Fall Risk: 11/05/23 Dental Screening Dental Screen Date: 09/10/23 HPI painful ulcers HPI Details Patient comes in today again to follow up on the painful ulcers that have broken out again on both of her lower legs and ankles She currently has one that is larger behind her left lower leg States that she is tired of dealing with her painful ulcers as they have been recurring often for the past 3 years or more and she feels that no one is able to give her some answers even after all the specialists that she has been to over the years She has been seen by dermatology, vascular surgery and rheumatology but she feels that everyone seems to have a different opinion on what is the cause of her ulcers and she would like to see if she can get a referral to a specialist in [place] who may be able to provide her with some more definitive answers She is currently on Doxycycline 100 mg BID and has an appointment with the wound clinic in a couple of days She was also seen by rheumatology last month, who agreed that there is likely an autoimmune component to her recurrent ulcers as they seem to respond promptly to oral Prednisone Tx but as no skin biopsies have been done, no definitive answers are available Dermatology has declined to perform a skin biospy in the past for fear of creating more open wounds that may be troublesome to clear up due to her history of recurrent spontaneous ulcers and vascular surgery have determined that she has no significant circulatory compromise and she only has venous insufficiency which may be contributing to but are likely not the main etiology for her recurrent painful ulcers She currently takes Oxycodone for pain mainly at night to help her get some slee p and states that she will need more of this as she is running out She has some Tramadol to take for pain during the daytime but have not been taking it consistently as she feels that they do not really help and is looking for something else for the pain that may help better She denies any fever or chills; denies any headaches or dizziness Denies any chest pains, no SOB No nausea/vomiting, no abdominal pain No change in bowel habits noted PFSH Medical History Constipation Osteoporosis Allergic rhinitis Insomnia Osteoarthritis Obesity (BMI 30-39.9) Depression Anxiety Osteopenia Vitamin D deficiency GERD without esophagitis Asthma Paroxysmal atrial fibrillation Pure hypercholesterolemia Benign essential hypertension PAF (paroxysmal atrial fibrillation) Surgical History History of colonoscopy Family History Father CVD (cardiovascular disease) Stroke Mother Medical history unknown Social History Housing: Apartment Alcohol intake: never Patient Tobacco Use Status: Never used Tobacco e-Cigarette/Vaping Use: Never Used Second Hand Smoke Exposure: Yes service: No Current occupational status: disabled Cognitive needs: No Hearing needs: No Vision needs: Yes (glasses) Questionnaire Thrive Questionnaire Date Thrive assessed: 10/09/23 FARIDEH-7 AMB Questionnaire FARIDEH-7 Date FARIDEH - 7 assessed: 09/10/23 Source: Developed by Drs. Abisai Peñaloza, Celina Simeon, Ayad Briceno and colleagues, with an educational elif from [employer]. Review of Systems Const Denies chills, Reports difficulty sleeping (due to pain), Reports fatigue, Denies fever(s) and Denies headache(s) ENT Denies dysphagia, Denies dizziness, Denies otalgia, Denies headache(s), Denies odynophagia and Denies sore throat Card Denies chest pain, Denies palpitations and Denies dyspnea Resp Denies chest congestion, Denies cough, Denies dyspnea and Denies wheezing GI Details: (+) painful hemorrhoids often Denies abdominal pain, Reports constipation (on and off), Denies dysphagia, Denies heartburn, Denies diarrhea, Denies nausea, Denies odynophagia and Denies vomiting Denies difficulty voiding, Denies nocturia, Denies dysuria and Reports urinary incontinence (mostly urge incontinence, especially at night) Musc Reports arthralgias (involving multiple joints, especially her knees) Skin/Breast Reports as per HPI and Reports skin ulcer ((+) multiple painful sores/ulcers on both lower legs distally and on ankles) Neuro Denies dizziness and Denies headache(s) Endo Reports fatigue and Denies palpitations Aller/Immun Denies wheezing Physical exam (Primary Care) Vital Signs: Last Vital Signs Pulse 73 11/05/23 08:36 BP 144/82 H 11/05/23 08:36 Pulse Ox 96 11/05/23 08:36 Oxygen Delivery Method Room Air 11/05/23 08:36 BMI result Body Mass Index 34.4 Tobacco/Smoking Status: Tobacco use Status Tobacco use date assessed 10/09/23 11/05/23 08:42 Patient Tobacco Use Status Never used Tobacco 11/05/23 08:42 e-Cigarette/Vaping Use Never Used 11/05/23 08:42 Thrive Assessment: Date of Thrive Assessment Date Thrive assessed 10/09/23 11/05/23 08:42 Const General: no acute distress and alert HENMT Throat: Yes posterior oropharynx normal and Yes tonsils normal (no TP congestion) Neck Neck: Yes no lymphadenopathy and Yes supple Thyroid: Thyroid normal Resp Auscultation: clear to auscultation bilaterally, no rales and no rhonchi Cardio Rate: regular rate Rhythm: regular rhythm Heart sounds: no murmurs GI Palpation (GI): Soft to palpation and nontender Auscultation: normal bowel sounds General: Yes no CVA tenderness Back/Spine/Pelvis Back: no CVA tenderness Thoracic/Lumbar Spine: No lumbar spinal tenderness Skin Other: (+) multiple, non-draining, ulcers/sores over the distal half of both lower legs - there are currently 2 small ulcers on the right lower leg distally and a l arger ulcer over the posterolateral aspect of the left lower leg just above the ankle Extrem General: Yes no clubbing, cyanosis or edema Assessment and Plan Assessment & Plan (1) Ulcers of both lower extremities: Code(s): L97.919 - Non-pressure chronic ulcer of unspecified part of right lower leg with unspecified severity; L97.929 - Non-pressure chronic ulcer of unspecified part of left lower leg with unspecified severity Qualifiers: Non-pressure ulcer stage: unspecified non-pressure ulcer stage Qualified Code(s): L97.919 - Non-pressure chronic ulcer of unspecified part of right lower leg with unspecified severity; L97.929 - Non-pressure chronic ulcer of unspecified part of left lower leg with unspecified severity Plan: Patient has been seen by vascular surgery at [place] in the past and was advised that her ulcers are non-vacular in origin - previous workups, including arterial duplex, venous doppler, angiogram and CTA of the aorta, have all come back normal She was seen more recently by Dr. Rees who will be helping her more with her venous insufficiency, which may or may not significantly impact her painful ulcers Her painful ulcers seem to have responded to empiric Tx with oral prednisone in the past so there is a very likely possibility that her ulcers have an autoimmune component although vasculitis work ups done by rheumatology in the past were mostly negative She was referred to dermatology for consideration for skin biopsy and was seen by Dr. Sandoval in June 2023 but he seems to think that these are stasis ulcers and did not warrant further investigation; they apparently also have reservations about doing a skin biopsy which may create a new open wound that may be troublesome for the patient She is currently again on oral Doxycycline 100 mg BID and have declined offer to start her back on oral Prednisone Per request, will provide her again with Rx for #7 tablets of Oxycodone 10 mg to take at bedtime ONLY as needed for severe pain She is currently also scheduled to see the Wound Clinic in a couple of days to help her manage her open sores Have advised patient to discuss whether the wound clinic can perform a biopsy on her current open sores, which may provide us with some definitive answers to her recurring problems and if they cannot, then will have to consider referring her to surgery for this Have advised them to hold off on their request for referral to specialists in [place] for now and if our efforts to attempt getting a skin biopsy done on her here prove fruitless, then we can consider referring her to an outside facility Have also advised them of the option of going to [facility] in [place] rather than [place], which would be a lot closer for her Plan Follow up as scheduled in January 2024 Medications: Changed From albuterol sulfate 2.5 mg (3 mL) inhalation QID 30 days PRN 180 mL 3RF shortness of breath or wheezing J44.9 - Chronic obstructive pulmonary disease, unspecified To albuterol sulfate 2.5 mg continuous nebulization QID PRN shortness of breath or wheezing J44.9 - Chronic obstructive pulmonary disease, unspecified Refilled oxycodone Partial Fill upon patient request. 10 mg PO BEDTIME PRN 7 tabs 0RF severe pain Coding Level of Care Code Est Pt Level 3 (67079) Diagnoses Ulcers of both lower extremities, unspecified ulcer stage L97.919; L97.929 Non-pressure ulcer stage: unspecified non-pressure ulcer stage
== END 2023-11-05 10:18 | disposition home or self-care (01) ==
PROVIDERS: PCP Internal Medicine; Visit Provider Internal Medicine
DX: L97.919 Non-pressure chronic ulcer of unspecified part of right lower leg with unspecified severity (principal); L97.929 Non-pressure chronic ulcer of unspecified part of left lower leg with unspecified severity
CPT/HCPCS: 99213

== ENCOUNTER 2023-11-07 09:58 | Outpatient (RCR) | payer OTHER, SELFPAY | END 2024-03-06 10:39 | disposition home or self-care (01) | LOC: HO.WCC 09:58 | PROVIDERS: PCP Internal Medicine; Visit Provider Surgery | DX: I87.313 Chronic venous hypertension (idiopathic) with ulcer of bilateral lower extremity (principal); L97.822 Non-pressure chronic ulcer of other part of left lower leg with fat layer exposed; L97.812 Non-pressure chronic ulcer of other part of right lower leg with fat layer exposed; Z79.899 Other long term (current) drug therapy | CPT/HCPCS: 11042; 11102; 11106; 87070; 87205; 88300; 88304; 88305; 88312; 99212 ==

== ENCOUNTER 2023-11-12 10:02 | Outpatient (REF) | payer OTHER, SELFPAY ==
[2023-11-12 10:28] LABS: MANUAL DIFF FLAG NO
[2023-11-12 10:43] LABS: Basophils Percent Auto 0.4 % (0-2); Eosinophils Absolute Auto 0.1 X10*3/uL (0.0-0.4); Eosinophils Percent Auto 1.7 % (0-4); Hematocrit 42.1 % (37.0-47.0); Hemoglobin 13.1 g/dl (12.0-16.0); Imm Gran Abs Auto 0.03 X10*3/uL (0.00-0.03); Imm Gran Pct Auto 0.4 % (0.0-0.4); Lymphocytes Absolute Auto 1.3 X10*3/uL (1.2-4.9); Lymphocytes Percent Auto 17.3 % (20-40); Mean Corpuscular HGB Conc 31.1 g/dl (31.0-35.0); Mean Corpuscular Hemoglobin 28.3 pg (27.0-33.0); Mean Corpuscular Volume 90.9 fL (80.0-98.0); Mean Platelet Volume 10.9 fL (9.4-12.3); Monocytes Absolute Auto 0.5 X10*3/uL (0.1-1.2); Monocytes Percent Auto 6.1 % (2-11); Neutrophils Absolute Auto 5.7 x10*3/uL (2.0-8.3); Neutrophils Percent Auto 74.1 % (45-73); Platelet Count 273 X10*3/uL (160-400); Red Blood Count 4.63 X10*6/uL (4.20-5.50); Red Cell Distribution Width 13.7 % (11.0-16.0); White Blood Count 7.7 X10*3/uL (4.8-10.8)
[2023-11-12 11:24] LABS: Erythrocyte Sedimentation Rate 16 MM/HR (0-20)
[2023-11-12 11:31] LABS: Alanine Aminotransferase 15 U/L (0-31); Alkaline Phosphatase 81 U/L (39-117); Anion Gap 14 (12-20); Aspartate Amino Transferase 21 U/L (5-31); Bilirubin Total 0.3 mg/dL (0.0-1.0); Blood Urea Nitrogen 16 mg/dL (9-16); C Reactive Protein 0.84 mg/dL (< or = 0.50); Calcium 9.4 mg/dL (8.4-10.2); Carbon Dioxide 27 mmol/L (22-29); Chloride 104 mmol/L (96-108); Estimated Glomerular Filt Rate > 60; Glucose Random 118 mg/dL (60-115); Potassium 4.4 mmol/L (3.3-5.1); Sodium 141 mmol/L (135-145)
[2023-11-15 01:05] LABS: TSpotTB Invalid (Negative)
[2023-11-26 14:04] LABS: TPMT Activity 17
== END 2023-11-12 10:03 | disposition home or self-care (01) ==
LOC: HO.LAB 10:02
PROVIDERS: PCP Internal Medicine; Visit Provider Student in an Organized Health Care Education/Training Program
DX: Z51.81 Encounter for therapeutic drug level monitoring (principal); Z79.631 Long term (current) use of antimetabolite agent; Z79.624 Long term (current) use of inhibitors of nucleotide synthesis; Z11.7 Encounter for testing for latent tuberculosis infection
CPT/HCPCS: 36415; 80053; 84433; 85025; 85652; 86140; 86481

== ENCOUNTER 2023-11-13 11:31 | Outpatient (AMB) | payer OTHER, SELFPAY ==
--- NOTE | 2023-11-13 11:36 | MHC.OFFVIS ---
Vital Signs 11/13/23 11:37 Height 5 ft 1 in Weight 182 lb 1.629 oz BMI 34.4 BP 138/80 Blood Pressure Location Rt brachial Position Sitting Pulse 43 L Pulse Source Pulse Oximeter Pulse Oximetry (%) 95 Oxygen Delivery Method Room Air Intake Visit Reasons: Skin ulcer Intake Note: Patient last seen 09/13/23 presents today for follow up and test results. Speedboat Driver Required: Yes Speedboat Driver Language: Manager Hardware Name: Diann Montenegro - form signed Information Interpreted: non-clinical & clinical Accompanied by: Daughter Allergies Penicillins Allergy (Intermediate, Verified 11/13/23 11:42) Hives oxaprozin [From Daypro] Allergy (Unknown, Verified 11/13/23 11:42) RASH hydroxychloroquine Adverse Reaction (Intermediate, Verified 11/13/23 11:42) Abdominal Pain budesonide [Symbicort] Adverse Reaction (Unknown, Verified 11/13/23 11:42) nausea and vomiting Medication List - Last Reconciled 11/13/23 by Fausto Bowens MD acetaminophen ER 650 mg PO Q8H PRN 30 days Advair HFA 115-21 mcg/actuation (fluticasone propion-salmeterol) 2 puffs inhalation BID NS albuterol sulfate 2.5 mg continuous nebulization QID PRN albuterol sulfate 90 mcg/actuation 1 puff inhalation Q6H alendronate 70 mg PO QWEEK 3 months atorvastatin 80 mg PO BEDTIME 90 days calcium carbonate-vit D3-min 600 mg calcium- 200 unit 1 tab PO DAILY candesartan 32 mg PO DAILY cholecalciferol (vitamin D3) 25 mcg PO DAILY 90 days [disposable bed pads As directed 4 per day ] doxycycline monohydrate 100 mg PO BID 10 days fluticasone propionate 110 mcg/actuation (Flovent HFA) 2 puffs inhalation BID 30 days folic acid 1 mg PO DAILY gabapentin 300 mg PO BID [gloves As directed] inhalational spacing device (Aerochamber MV spacer) As directed lactulose 20 grams (30 mL) PO DAILY PRN lidocaine 5% 1 appl topical TID PRN loratadine 10 mg PO DAILY PRN 90 days lubiprostone (Amitiza) 24 mcg PO BID mineral oil (Fleet Mineral Oil enema) 133 mL VT DAILY PRN mirtazapine 15 mg PO BEDTIME 90 days miscellaneous medical supply Power Lift Chair - As directed - to use indefinatly mupirocin 2% 1 appl topical TID mupirocin 2% 1 appl topical BID mupirocin 2% 1 appl topical TID oxycodone 10 mg PO BEDTIME PRN polyethylene glycol 3350 (Miralax) 17 grams PO DAILY PRN sennosides (senna) 8.6 mg PO DAILY silver sulfadiazine 1% (Silvadene) 1 appl topical BID tramadol 50 mg PO BID PRN 30 days zolpidem 10 mg PO BEDTIME PRN 30 days HPI Comments Details: 78-year-old female with leg ulcers returns for follow-up. Patient stated that her wounds have been worse recently and are opening now. [facility] and had a skin biopsy which was negative for vasculitis, or any other autoimmune phenomenon. Stains for infectious organisms was negative. She was prescribed a prednisone per by Dr. Ackerman earlier this month and she does not believe it helped. She was recently evaluated by vascular surgeon and had venous studies done, she will follow-up 7th. Recently prescribed oxycodone for her pain by Dr. Ackerman. She did not take methotrexate as prescribed Initial history: This is a 77-year-old female who presents for evaluation of bilateral leg ulcers. Per daughter these started about 2 years ago. They occur on the ankles and heels. They common go. The rashes start as a A skin bleb, eventually the skin breaks off, she would have a painful ulcer, then it heals. Recently she has been having painful ulcers in both her heels. She states that she cannot even wear socks due to the severe pain. She denies any significant trauma to the heel. The rashes are not itchy. She is unaware of any self or family history of autoimmune rheumatic disease. She denies any fevers or weight loss. Denies any painful or swollen joints. She was evaluated by vascular surgery and had angiogram and according to the notes, the angiogram was unremarkable and no further intervention was suggested. [facility] Medical History Constipation Osteoporosis Allergic rhinitis Insomnia Osteoarthritis Obesity (BMI 30-39.9) Depression Anxiety Osteopenia Vitamin D deficiency GERD without esophagitis Asthma Paroxysmal atrial fibrillation Pure hypercholesterolemia Benign essential hypertension PAF (paroxysmal atrial fibrillation) Surgical History History of colonoscopy Family History Father CVD (cardiovascular disease) Stroke Mother Medical history unknown Social History Housing: Apartment Alcohol intake: never Patient Tobacco Use Status: Never used Tobacco e-Cigarette/Vaping Use: Never Used Second Hand Smoke Exposure: Yes service: No Current occupational status: disabled Cognitive needs: No Hearing needs: No Vision needs: Yes (glasses) Review of Systems Skin/Breast Reports non-healing lesions, Reports skin ulcer and Reports wounds Physical Exam Vital Signs: Last Vital Signs Pulse 43 L 11/13/23 11:37 BP 138/80 11/13/23 11:37 Pulse Ox 95 11/13/23 11:37 Oxygen Delivery Method Room Air 11/13/23 11:37 BMI result Body Mass Index 34.4 Const General: cooperative, healthy appearing and comfortable Nutritional Appearance: obese Orientation/consciousness: patient oriented x3 Limitations: no limitations HEENT Head: Yes normocephalic and Yes atraumatic Resp Effort & Inspection: normal respiratory effort and able to speak in complete sentences GI Inspection: No distended Palpation (GI): Soft to palpation Skin Other: Bilateral ankle and feet ulcers. Left ankle is wrapped Neuro General: patient oriented x3 Extrem Other: No active synovitis Normal nailfold capillaroscopy Results Reviewed Results Reviewed: MR Foot LT W WO - 04/17/23 - Report Status:Signed INDICATION: NON HEALING LT HEEL WOUND OSTEOMYELITIS ? COMPARISON: None ? TECHNIQUE: Multiplanar, multisequence MRI was performed of the left foot without and after the uneventful intravenous contrast administration of 17 mL Dotarem. ? FINDINGS: ? Bone: A posterior plantar calcaneal spur is noted. There is no abnormal T1 marrow replacement or surrounding hyperintense signal on fluid sensitive sequences involving the left hindfoot. Degenerative change with cystic change is noted involving the anterior process of the calcaneus. No osteochondral lesion is noted. Degenerative changes are noted involving the third TMT. ? Soft Tissues: Mild subcutaneous soft tissue swelling is noted along the heel pad. There is thickening of the plantar fascia in keeping with chronic plantar fasciitis. Left ankle joint fluid is present. After intravenous contrast administration, there is mild enhancement of the subcutaneous soft tissues along the heel pad in keeping with cellulitis. No drainable fluid collection is noted. ? ? IMPRESSION: Heel pad thickening with mild enhancement which may represent cellulitis without MRI findings to suggest osteomyelitis of the left hindfoot. Skin biopsy 11/07/2022 Addendum #1 GMS and PAS-F stains are negative for fungi with appropriate controls. Electronically Signed By: Maira Dueñas 11/12/23 1414 Diagnosis Skin, left lower extremity wound, biopsy: Benign skin with ulcer and granulation tissue; no evidence of malignancy and no vasculitis identified. Comment: If there is concern for an immune-mediated process, sending a fresh specimen for immunofluorescence studies may be helpful. Fungal stains pending; addendum to follow ? ? ? Assessment & Plan Assessment & Plan (1) Ulcer of left lower leg: Code(s): L97.929 - Non-pressure chronic ulcer of unspecified part of left lower leg with unspecified severity Category: Medical Qualifiers: Non-pressure ulcer stage: limited to breakdown of skin Qualified Code(s): L97.921 - Non-pressure chronic ulcer of unspecified part of left lower leg limited to breakdown of skin (2) Ulcer of right lower leg: Code(s): L97.919 - Non-pressure chronic ulcer of unspecified part of right lower leg with unspecified severity Category: Medical Qualifiers: Non-pressure ulcer stage: limited to breakdown of skin Qualified Code(s): L97.911 - Non-pressure chronic ulcer of unspecified part of right lower leg limited to breakdown of skin Plan: This is a 77-year-old female who presents for evaluation of recurrent painful ulcers of her ankles and feet. She was evaluated by vascular surgery and angiogram was performed and according to notes it was unremarkable. No further intervention was suggested. Labs showed minimally elevated inflammatory markers. Comprehensive serology is negative except for borderline positive dsDNA with no other clinical or serologic criteria for any specific autoimmune rheumatic disease. Patient's ulcers please have become worse, some of them are opening. She has established care with wound care and recently had a skin biopsy which was negative for any underlying autoimmune etiology. Stains for infectious organisms was negative. Historically patient's ulcer seemed to improve with prednisone. However most recent were taper provided by Dr. Ackerman earlier this month did not help much. Patient definitely has venous stasis. However I wonder whether there is an underlying autoimmune etiology to her ulcers as well Patient could not tolerate hydroxychloroquine. She did not take methotrexate as prescribed Today I had a long conversation with acoustic intelligence specialist Dr. Duffy. Diagnosis is tough to make however next visit, she will consider doing another skin biopsy and sending it for immunofluorescence studies. Follow-up in about 6 weeks Plan I spent 28 minutes reviewing patient's chart, evaluating patient, discussing with Dr. Duffy, counseling patient and her son and documenting in the chart Coding Level of Care Code Est Pt Level 4 (15980) Diagnoses Skin ulcer of left lower leg, limited to breakdown of skin L97.921 Non-pressure ulcer stage: limited to breakdown of skin Skin ulcer of right lower leg, limited to breakdown of skin L97.911 Non-pressure ulcer stage: limited to breakdown of skin
[2023-11-13 11:37] VITALS: BP 138/80; PULSE 43; O2SAT 95; BMI 34.4
== END 2023-11-13 12:16 | disposition home or self-care (01) ==
PROVIDERS: PCP Internal Medicine; Visit Provider Student in an Organized Health Care Education/Training Program
DX: L97.921 Non-pressure chronic ulcer of unspecified part of left lower leg limited to breakdown of skin (principal); L97.911 Non-pressure chronic ulcer of unspecified part of right lower leg limited to breakdown of skin
CPT/HCPCS: 99214

== ENCOUNTER → 2023-11-13 11:31 | Outpatient (BNVA) | payer OTHER, SELFPAY | PROVIDERS: PCP Internal Medicine; Visit Provider Student in an Organized Health Care Education/Training Program | DX: L97.921 Non-pressure chronic ulcer of unspecified part of left lower leg limited to breakdown of skin (principal); L97.911 Non-pressure chronic ulcer of unspecified part of right lower leg limited to breakdown of skin | CPT/HCPCS: 99212 ==

== ENCOUNTER 2023-11-19 10:55 | Outpatient (AMB) | payer OTHER, SELFPAY ==
[2023-11-19 10:57] VITALS: BMI 34.4
--- NOTE | 2023-11-19 10:57 | A.OFFVIS_ITS ---
Vital Signs 11/19/23 10:57 Height 5 ft 1 in Weight 182 lb BMI 34.4 Intake Visit Reasons: Follow Up 10/31 US Intake Note: follow up US 11/01/23, pt states she has bilateral LE ulcers w/ some drainage. Accompanied by: Daughter Allergies Penicillins Allergy (Intermediate, Verified 11/19/23 11:00) Hives oxaprozin [From Daypro] Allergy (Unknown, Verified 11/19/23 11:00) RASH hydroxychloroquine Adverse Reaction (Intermediate, Verified 11/19/23 11:00) Abdominal Pain budesonide [Symbicort] Adverse Reaction (Unknown, Verified 11/19/23 11:00) nausea and vomiting HPI HPI Follow Up 10/31 US: Details: Very complex 78-year-old female presents for evaluation regarding ulcers of bilateral lower extremities. They have been small punctate ulcers that appeared to be a source pain and discomfort for her. She had undergone CT angiogram with runoff on 10/04/2023. She has had prior interventional angiograms by Dr. Stern and Dr. Hanson which were essentially negative. She has these bilateral medial calf punctate ulcerations. They have been source of discomfort for her. She now presents to us for vascular follow-up with venous insufficiency testing. [facility] Medical History Constipation Osteoporosis Allergic rhinitis Insomnia Osteoarthritis Obesity (BMI 30-39.9) Depression Anxiety Osteopenia Vitamin D deficiency GERD without esophagitis Asthma Paroxysmal atrial fibrillation Pure hypercholesterolemia Benign essential hypertension PAF (paroxysmal atrial fibrillation) Surgical History History of colonoscopy Family History Father CVD (cardiovascular disease) Stroke Mother Medical history unknown Social History Housing: Apartment Alcohol intake: never Patient Tobacco Use Status: Never used Tobacco e-Cigarette/Vaping Use: Never Used Second Hand Smoke Exposure: Yes service: No Current occupational status: disabled Cognitive needs: No Hearing needs: No Vision needs: Yes (glasses) Review of Systems Const All systems reviewed & are unremarkable except as noted in HPI and below Reports no additional complaints ENT Reports Normal hearing present Card Denies chest pain, Denies chest pain at rest, Denies chest pain with activity and Denies pedal edema Resp Denies cough GI Denies abdominal pain Musc Denies abnormal gait, Denies muscle cramps and Denies radiating pain into limb Skin/Breast Denies skin ulcer and Denies wounds Neuro Reports Normal hearing present and Denies abnormal gait Psych Reports no additional complaints Physical Exam Vital Signs: BMI result Body Mass Index 34.4 Const General: cooperative, healthy appearing and comfortable Orientation/consciousness: oriented to person, oriented to place and oriented to time HEENT Head: Yes normal to inspection Neck Neck: Yes normal visual inspection Carotids: no bruits Chest Chest palpation & inspection: normal inspection of the chest Resp Effort & Inspection: normal respiratory effort and able to speak in complete sentences Auscultation: clear to auscultation bilaterally, no crackles, no rales, no rho nchi and no wheezes Cardio Rate: regular rate Rhythm: regular rhythm Heart sounds: S1 normal heart sound present and S2 normal heart sound present Bruits: no carotid bruits Peripheral pulses: Peripheral pulses 2+ throughout GI Inspection: Yes normal to inspection Skin Wounds: no wounds Hair: normal Neuro General: oriented to person, oriented to place and oriented to time Cranial nerves: Yes CN's II-XII intact bilaterally and Yes Normal hearing present Cognition (Neuro): normal cognition Motor exam (neuro): 5/5 motor strength present throughout Extrem Other: venous exam: +1 edema Bilateral lower extremity punctate ulcers. General: No clubbing, No cyanosis and Yes edema Psych Appearance: grossly normal Mental Status: mental status grossly normal Speech and movement: Normal speech and movement present Results Reviewed Results Reviewed: Brief summary of venous insufficiency testing is as follows: right great saphenous vein: Focally positive below knee but vein is extremely small in caliber right small saphenous vein: negative right accessory vein: none present left great saphenous vein: negative left small saphenous vein: negative left accessory vein: none present Please note there is no evidence of any venous aneurysms or significant tortuosity Assessment & Plan Assessment & Plan (1) Ulcers of both lower extremities: Code(s): L97.919 - Non-pressure chronic ulcer of unspecified part of right lower leg with unspecified severity; L97.929 - Non-pressure chronic ulcer of unspecified part of left lower leg with unspecified severity Category: Medical Qualifiers: Non-pressure ulcer stage: unspecified non-pressure ulcer stage Qualified Code(s): L97.919 - Non-pressure chronic ulcer of unspecified part of right lower leg with unspecified severity; L97.929 - Non-pressure chronic ulcer of unspecified part of left lower leg with unspecified severity Plan: In short patient has nonhealing lower extremity ulcers. Unclear etiology of this. I do not believe it is arterial even though she has had prior intervent ion she has palpable bilateral DP and PT pulses. In addition we see on the venous insufficiency testing it is essentially negative. I did discuss the results with the patient and her daughter. I did appreciate rheumatology note. Is quite unusual that her ulcers did improve with prednisone. She does have rheumatologic follow-up scheduled. She can follow up with us on an as-needed basis. Thank you for allowing us to assist in her care. Coding Level of Care Code Est Pt Level 4 (71246) Diagnoses Ulcers of both lower extremities, unspecified ulcer stage L97.919; L97.929 Non-pressure ulcer stage: unspecified non-pressure ulcer stage
== END 2023-11-19 11:22 | disposition home or self-care (01) ==
PROVIDERS: PCP Internal Medicine; Visit Provider Surgery Vascular Surgery
DX: L97.919 Non-pressure chronic ulcer of unspecified part of right lower leg with unspecified severity (principal); L97.929 Non-pressure chronic ulcer of unspecified part of left lower leg with unspecified severity
CPT/HCPCS: 99213

== ENCOUNTER → 2023-11-19 10:55 | Outpatient (BNVA) | payer OTHER, SELFPAY | PROVIDERS: PCP Internal Medicine; Visit Provider Surgery Vascular Surgery | DX: L97.919 Non-pressure chronic ulcer of unspecified part of right lower leg with unspecified severity (principal); L97.929 Non-pressure chronic ulcer of unspecified part of left lower leg with unspecified severity | CPT/HCPCS: 99212 ==

== ENCOUNTER 2023-12-30 14:49 | Emergency (ER) | payer OTHER, SELFPAY ==
[2023-12-30 15:02] VITALS: BP 142/92; PULSE 80; O2SAT 96
[2023-12-30 15:08] VITALS: BP 124/70; PULSE 68; RESP 18; TEMP 36.2; O2SAT 94; BMI 32.0
--- NOTE | 2023-12-30 15:23 | ED_ITS ---
HPI - General Adult General Chief complaint: Extremity Problem Stated complaint: BLE PAIN X1 YR, DIFF AMB PER EMS Time Seen by Provider: 12/30/23 15:12 History of Present Illness ED Provider: Dr. Leon HPI narrative: 78 y/o F patient; PMH chronic extremity pain, arthritis, MGUS, pAF; presents from home reporting pain in bilateral lower extremities. She states she has had this pain for the last year. Patient was last seen in this emergency department in 09/2023 for similar complaint. She had a CTA with lower extremity run-off at that time without significant venous abnormalities. She was recommended to follow up with Vascular physician. Patient has been managing her pain with Tramadol and Gabapentin as well as PRN Percocet. Otherwise denies: fever or chills, SOB, cough/congestion, chest pain, nausea/vomiting, diarrhea, abdominal pain, syncope. Patient has appointment with PCP on Saturday (01/01/2024) for these symptoms. She presented today as she was unable to sleep overnight due to the discomfort. Related Data Home Medications ?Medication ?Instructions ?Recorded ?Confirmed calcium carb-vit D3-minerals 600 1 tab PO DAILY 09/26/22 11/13/23 mg calcium-200 unit tablet albuterol sulfate 2.5 mg/3 mL 2.5 mg continuous nebulization QID 11/05/23 11/13/23 (0.083 %) solution for nebulization PRN shortness of breath or wheezing alclometasone 0.05 % topical cream appl topical 11/19/23 Previous Rx's ?Medication ?Instructions ?Recorded inhalational spacing device #1 ea 04/07/21 (Aerochamber MV spacer) miscellaneous medical supply #1 ea 08/15/21 fluticasone propionate 110 2 puff inhalation BID 30 days #12 10/31/22 mcg/actuation HFA aerosol inhaler grams (Flovent HFA) acetaminophen 650 mg 650 mg PO Q8H PRN pain 30 days #90 12/31/22 tablet,extended release tabs mupirocin 2 % topical ointment 1 appl topical TID #22 grams 03/03/23 silver sulfadiazine 1 % topical 1 appl topical BID #25 grams 03/07/23 cream (Silvadene) mineral oil (Fleet Mineral Oil 133 ml NC DAILY PRN constipation 09/25/23 enema) #266 mL polyethylene glycol 3350 17 17 g PO DAILY PRN constipation 04/08/23 gram/dose oral powder (Miralax) #238 grams atorvastatin 80 mg tablet 80 mg PO BEDTIME 90 days #90 tabs 06/17/23 alendronate 70 mg tablet 70 mg PO QWEEK 3 months #13 tabs 07/13/23 candesartan 32 mg tablet 32 mg PO DAILY #90 tabs 07/22/23 sennosides 8.6 mg tablet (senna) 8.6 mg PO DAILY #90 tabs 07/31/23 folic acid 1 mg tablet 1 mg PO DAILY #90 tabs 09/13/23 loratadine 10 mg tablet 10 mg PO DAILY PRN allergy 09/25/23 symptoms 90 days #90 tabs disposable bed pads #1 ea 10/01/23 gloves #1 ea 10/01/23 gabapentin 300 mg capsule 300 mg PO BID #60 caps 10/05/23 mupirocin 2 % topical ointment 1 appl topical BID #22 grams 10/05/23 Advair HFA 115 mcg-21 2 puff inhalation BID #12 grams 10/09/23 mcg/actuation aerosol inhaler (fluticasone propion-salmeterol) cholecalciferol (vitamin D3) 25 25 mcg PO DAILY 90 days #90 caps 10/09/23 mcg (1,000 unit) capsule lidocaine 5 % topical ointment 1 appl topical TID PRN pain #50 10/09/23 grams mupirocin 2 % topical ointment 1 appl topical TID #22 grams 10/09/23 lactulose 20 gram/30 mL oral 20 g (30 mL) PO DAILY PRN 10/18/23 solution constipation #420 mL doxycycline monohydrate 100 mg 100 mg PO BID 10 days #20 caps 11/01/23 capsule zolpidem 10 mg tablet 10 mg PO BEDTIME PRN sleep 30 days 11/01/23 #30 tabs albuterol sulfate 90 mcg/actuation 1 puff inhalation Q6H #8.5 ea 11/26/23 aerosol inhaler mirtazapine 15 mg tablet 15 mg PO BEDTIME 90 days #90 tabs 11/29/23 tramadol 50 mg tablet 50 mg PO BID PRN pain 30 days #60 12/02/23 tabs oxycodone 10 mg tablet 10 mg PO BEDTIME PRN severe pain 12/25/23 #7 tabs lubiprostone 24 mcg capsule 24 mcg PO BID #60 caps 12/26/23 (Amitiza) Allergies Allergy/AdvReac Type Severity Reaction Status Date / Time Penicillins Allergy Intermediate Hives Verified 12/30/23 15:10 oxaprozin [From Daypro] Allergy Unknown RASH Verified 12/30/23 15:10 hydroxychloroquine AdvReac Intermediate Abdominal Verified 12/30/23 15:10 Pain budesonide [Symbicort] AdvReac Unknown nausea and Verified 12/30/23 15:10 vomiting Review of Systems Review of Systems: Yes all other systems are reviewed and are negative [facility] Past Medical History Attestation statement: The following information was validated with the patient. Source: old records reviewed Medical History Constipation Osteoporosis Allergic rhinitis Insomnia Osteoarthritis Obesity (BMI 30-39.9) Depression Anxiety Osteopenia Vitamin D deficiency GERD without esophagitis Asthma Paroxysmal atrial fibrillation Pure hypercholesterolemia Benign essential hypertension PAF (paroxysmal atrial fibrillation) Surgical History History of colonoscopy Family History Family History Father CVD (cardiovascular disease) Stroke Mother Medical history unknown Social History Social History Housing: Apartment Alcohol intake: never Patient Tobacco Use Status: Never used Tobacco e-Cigarette/Vaping Use: Never Used Second Hand Smoke Exposure: Yes Advance Directives: No Advance Directives Information Provided: Yes service: No Current occupational status: disabled Cognitive needs: No Hearing needs: No Vision needs: Yes (glasses) Physical Exam ED Vital Signs: Vital Signs - 24 hr 12/30/23 15:08 Temperature 97.1 F Pulse Rate 68 Respiratory Rate 18 Blood Pressure 124/70 Pulse Oximetry 94 Oxygen Delivery Method Room Air BMI result Body Mass Index 32.0 Patient is afebrile and hemodynamically stable. Const General: cooperative HENMT Head: Yes normal to inspection and Yes atraumatic Eyes General: appearance normal, both eyes and all related structures Pupils: Equal, round and reactive pupils present EOM: EOMs intact bilaterally Neck Neck: Yes normal visual inspection, Yes full ROM, Yes supple and No tender Chest Chest palpation & inspection: normal inspection of the chest and normal palpation of entire chest wall Resp Effort & Inspection: normal respiratory effort, able to speak in complete sentences, no cough and no respiratory distress Auscultation: clear to auscultation bilaterally Cardio Rate: regular rate Rhythm: regular rhythm Peripheral pulses: Peripheral pulses 2+ throughout GI Inspection: Yes normal to inspection, No Abdominal wall edema and No distended Palpation (GI): Soft to palpation, not firm, nontender, no guarding and not rigid Auscultation: normal bowel sounds Neuro Cranial nerves: Yes Equal, round and reactive pupils present Extrem Other: Bilateral lower extremities with chronic venous stasis changes, palpable pulses DP/PT. FROM. Soft compartments Course Course Course Narrative: Patient is afebrile and hemodynamically stable. Long discussion with patient and patient's son with use of ham pumper. Patient has had extensive evaluation of lower extremity pain with PCP and multiple vascular physicians without an obvious cause to her bilateral lower extremity discomfort. She is pending a referral to [facility]. She has a follow up with her PCP on Saturday (01/01/2024). Discussed limited utility of repeating studies in the ED at this time. Patient and patient's son are in agreement. Discussed one time dose of pain control at this time. Patient's son will drive her home. Provided dose of Tylenol 975 and Oxycodone 10mg (home medication). Plan: Discharge for PCP and Vascular Surgery follow up within the next 48 hours Return precautions provided Discharge Plan Discharge Clinical Impression: Arthralgia of both lower legs Patient Disposition: Home, Self-Care Instructions: Arthralgia (ED) Additional Instructions: As we discussed, you were seen today for lower leg pain. You have a follow up appointment with your PCP on 01/01/2024. You were given a dose of tylenol and a dose of oxycodone in the emergency department. Return to the emergency department for: Worsening lower extremity pain Difficulty walking Passing out Prescriptions: No Action (DME) miscellaneous medical supply Misc 0 .Route Qty: 1 0RF Rx Instructions: Power Lift Chair - As directed - to use indefinatly acetaminophen 650 mg tablet extended release 650 mg PO Q8H PRN (Reason: pain) 30 Days Qty: 90 3RF atorvastatin 80 mg tablet 80 mg PO BEDTIME 90 Days Qty: 90 1RF alendronate 70 mg tablet 70 mg PO QWEEK 90 Days Qty: 13 1RF candesartan 32 mg tablet 32 mg PO DAILY Qty: 90 1RF sennosides [senna] 8.6 mg tablet 8.6 mg PO DAILY Qty: 90 4RF loratadine 10 mg tablet 10 mg PO DAILY PRN (Reason: allergy symptoms) 90 Days Qty: 90 1RF (DME) gloves Large See Rx Instructions .Route .MEDSUPPLY Qty: 1 0RF Rx Instructions: As directed (DME) disposable bed pads See Rx Instructions .Route .MEDSUPPLY Qty: 1 0RF Rx Instructions: As directed 4 per day lidocaine 5 % ointment 1 appl topical TID PRN (Reason: pain) Qty: 50 0RF lactulose 20 gram/30 mL solution 20 g PO DAILY PRN (Reason: constipation) Qty: 420 0RF zolpidem 10 mg tablet 10 mg PO BEDTIME PRN (Reason: sleep) 30 Days Qty: 30 2RF doxycycline monohydrate 100 mg capsule 100 mg PO BID 10 Days Qty: 20 0RF albuterol sulfate 90 mcg/actuation HFA aerosol inhaler 1 puff inhalation Q6H Qty: 8.5 3RF mirtazapine 15 mg tablet 15 mg PO BEDTIME 90 Days Qty: 90 1RF tramadol 50 mg tablet 50 mg PO BID PRN (Reason: pain) 30 Days Qty: 60 0RF oxycodone 10 mg tablet 10 mg PO BEDTIME PRN (Reason: severe pain) Qty: 7 0RF Rx Instructions: Partial Fill upon patient request. lubiprostone [Amitiza] 24 mcg capsule 24 mcg PO BID Qty: 60 1RF calcium carbonate-vit D3-min 600 mg calcium- 200 unit tablet 1 tab PO DAILY mineral oil [Fleet Mineral Oil] Enema 133 ml NC DAILY PRN (Reason: constipation) Qty: 266 0RF Rx Instructions: discard any unused portion polyethylene glycol 3350 [Miralax] 17 gram/dose powder 17 g PO DAILY PRN (Reason: constipation) Qty: 238 0RF gabapentin 300 mg capsule 300 mg PO BID Qty: 60 0RF mupirocin 2 % ointment 1 appl topical BID Qty: 22 0RF mupirocin 2 % ointment 1 appl topical TID Qty: 22 0RF silver sulfadiazine [Silvadene] 1 % cream 1 appl topical BID Qty: 25 0RF Rx Instructions: apply a 1.5 mm thickness (DME) Aerochamber MV Spacer See Rx Instructions .Route Qty: 1 0RF Rx Instructions: As directed fluticasone propionate [Flovent HFA] 110 mcg/actuation HFA aerosol inhaler 2 puff inhalation BID 30 Days Qty: 12 5RF fluticasone propion-salmeterol [Advair HFA] 115-21 mcg/actuation HFA aerosol inhaler 2 puff inhalation BID Qty: 12 3RF Rx Instructions: administer with spacer mupirocin 2 % ointment 1 appl topical TID Qty: 22 2RF cholecalciferol (vitamin D3) 25 mcg (1,000 unit) capsule 25 mcg PO DAILY 90 Days Qty: 90 3RF albuterol sulfate 2.5 mg /3 mL (0.083 %) solution for nebulization 2.5 mg continuous nebulization QID PRN (Reason: shortness of breath or whee zing) folic acid 1 mg tablet 1 mg PO DAILY Qty: 90 1RF alclometasone 0.05 % cream topical Print Language: Hebrew
[2023-12-30] MEDS: Acetaminophen 325 MG TABLET 975 MG PO (16:16)
[2023-12-30] MEDS: oxyCODONE HCl Immed Release 5 MG TABLET 10 MG PO (16:17)
[2023-12-30 16:40] VITALS: BP 124/70; PULSE 68; RESP 18; TEMP 36.2; O2SAT 94
== END 2023-12-30 16:41 | disposition home or self-care (01) ==
PROVIDERS: Emergency Provider Emergency Medicine; PCP Internal Medicine
DX: M25.561 Pain in right knee (principal); M79.605 Pain in left leg; M79.604 Pain in right leg; Z79.899 Other long term (current) drug therapy
CPT/HCPCS: 99283; 99284

== ENCOUNTER 2024-01-01 08:50 | Outpatient (AMB) | payer OTHER, SELFPAY ==
--- NOTE | 2024-01-01 08:51 | A.OFFPC_ITS ---
Intake Visit Reasons: ulcers on both legs Customer Solutions Coordinator Required: No Allergies Penicillins Allergy (Intermediate, Verified 01/01/24 09:14) Hives oxaprozin [From Daypro] Allergy (Unknown, Verified 01/01/24 09:14) RASH hydroxychloroquine Adverse Reaction (Intermediate, Verified 01/01/24 09:14) Abdominal Pain budesonide [Symbicort] Adverse Reaction (Unknown, Verified 01/01/24 09:14) nausea and vomiting Medication List - Last Reconciled 01/01/24 by Milton Ackerman MD acetaminophen ER 650 mg PO Q8H PRN 30 days Advair HFA 115-21 mcg/actuation (fluticasone propion-salmeterol) 2 puffs inhalation BID NS albuterol sulfate 2.5 mg continuous nebulization QID PRN albuterol sulfate 90 mcg/actuation 1 puff inhalation Q6H alclometasone 0.05% appl topical alendronate 70 mg PO QWEEK 3 months atorvastatin 80 mg PO BEDTIME 90 days calcium carbonate-vit D3-min 600 mg calcium- 200 unit 1 tab PO DAILY candesartan 32 mg PO DAILY cholecalciferol (vitamin D3) 25 mcg PO DAILY 90 days [disposable bed pads As directed 4 per day ] doxycycline monohydrate 100 mg PO BID 10 days fluticasone propionate 110 mcg/actuation (Flovent HFA) 2 puffs inhalation BID 30 days folic acid 1 mg PO DAILY gabapentin 300 mg PO BID [gloves As directed] inhalational spacing device (Aerochamber MV spacer) As directed lactulose 20 grams (30 mL) PO DAILY PRN lidocaine 5% 1 appl topical TID PRN loratadine 10 mg PO DAILY PRN 90 days lubiprostone (Amitiza) 24 mcg PO BID mineral oil (Fleet Mineral Oil enema) 133 mL ND DAILY PRN mirtazapine 15 mg PO BEDTIME 90 days miscellaneous medical supply Power Lift Chair - As directed - to use indefinatly mupirocin 2% 1 appl topical TID mupirocin 2% 1 appl topical BID mupirocin 2% 1 appl topical TID oxycodone 10 mg PO BEDTIME PRN polyethylene glycol 3350 (Miralax) 17 grams PO DAILY PRN sennosides (senna) 8.6 mg PO DAILY silver sulfadiazine 1% (Silvadene) 1 appl topical BID tramadol 50 mg PO BID PRN 30 days zolpidem 10 mg PO BEDTIME PRN 30 days Tobacco use date assessed: 01/01/24 Fall risk assessment: No Falls in past year Last assessed Fall Risk: 01/01/24 Dental Screening Dental Screen Date: 09/10/23 HPI ulcers on both legs HPI Details Patient's follow up visit / consultation today is done over video conference (iPhone/iPad/[employer] [place]/[employer]) - this is a TELEHEALTH visit Patient's current medications have been reviewed and verified with patient and/or caregiver/proxy and have been updated accordingly in the medication list Today's visit is done through the assistance of patient's daughter as patient does not speak much Vietnamese (language barrier) Relates that patient went to the ER a couple of days ago for increasing pain and that some ulcers appear to be opening up again over the distal half of her lower legs and ankles bilaterally She was seen by rheumatology last month and also had a repeat skin Bx with immunofluorescence done by the wound clinic and sent to [facility] - no report is available yet on this at present She is currently requesting for her Rx for pain refilled and would also like to try oral Prednisone again to help relieve her current symptoms Is also requesting for rheumatology referral to [facility] for further evaluation, which was reportedly suggested to them by the wound clinic earlier Patient denies any fever; denies any headaches or dizziness Denies any chest pains, no SOB No nausea/vomiting, no abdominal pain No change in bowel habits noted PFSH Medical History Constipation Osteoporosis Allergic rhinitis Insomnia Osteoarthritis Obesity (BMI 30-39.9) Depression Anxiety Osteopenia Vitamin D deficiency GERD without esophagitis Asthma Paroxysmal atrial fibrillation Pure hypercholesterolemia Benign essential hypertension PAF (paroxysmal atrial fibrillation) Surgical History History of colonoscopy Family History Father CVD (cardiovascular disease) Stroke Mother Medical history unknown Social History Housing: Apartment Alcohol intake: never Patient Tobacco Use Status: Never used Tobacco e-Cigarette/Vaping Use: Never Used Second Hand Smoke Exposure: Yes service: No Current occupational status: disabled Cognitive needs: No Hearing needs: No Vision needs: Yes (glasses) Questionnaire Thrive Questionnaire Date Thrive assessed: 10/09/23 AUDIT C Alcohol Use Questionnaire (AUDIT-C) 1. How often do you have a drink containing alcohol?: Never 3. How often do you have six or more drinks on one occasion?: Never Total Score: 0 Score Reviewed/Action Taken: Yes FARIDEH-7 AMB Questionnaire FARIDEH-7 Date FARIDEH - 7 assessed: 09/10/23 Source: Developed by Drs. Abisai Peñaloza, Celina Simeon, Ayad Briceno and colleagues, with an educational elif from [employer]. Review of Systems Const Denies chills, Reports difficulty sleeping (due to pain), Reports fatigue, Denies fever(s) and Denies headache(s) ENT Denies dysphagia, Denies dizziness, Denies otalgia, Denies headache(s), Denies neck pain, Denies odynophagia and Denies sore throat Card Denies chest pain, Denies palpitations and Denies dyspnea Resp Denies chest congestion, Denies cough, Denies dyspnea and Denies wheezing GI Details: (+) painful hemorrhoids often Denies abdominal pain, Reports constipation (on and off), Denies dysphagia, Denies heartburn, Denies diarrhea, Denies nausea, Denies odynophagia and Denies vomiting Denies difficulty voiding, Denies nocturia, Denies dysuria, Reports urinary incontinence (mostly urge incontinence, especially at night) and Denies urinary urgency Musc Reports arthralgias (involving multiple joints, especially in her knees) and Denies neck pain Skin/Breast Reports as per HPI and Reports skin ulcer ((+) multiple painful sores/ulcers on both lower legs distally and on ankles) Neuro Denies dizziness and Denies headache(s) Endo Reports fatigue and Denies palpitations Aller/Immun Denies wheezing Physical exam (Primary Care) Vital Signs: Physical examination is not performed as visit / consultation today is done over videoconference - Telehealth visit All physical findings indicated here, if present, are as per patient's and / or caregivers / proxy's report and visual inspection over videoconference, if appropriate or applicable Tobacco/Smoking Status: Tobacco use Status Tobacco use date assessed 01/01/24 01/01/24 08:53 Patient Tobacco Use Status Never used Tobacco 01/01/24 08:53 e-Cigarette/Vaping Use Never Used 01/01/24 08:53 Thrive Assessment: Date of Thrive Assessment Date Thrive assessed 10/09/23 01/01/24 08:53 Telehealth Telehealth Telehealth Platform: Telephone Location of provider rendering services: practice address Location of patient: address on file Patient Identification confirmed using: Name, : Yes Telehealth method: video ([employer] // [phone]) Patient verbally consented to treatment: Yes Patient verbally consented to billing insurance company: Yes Patient informed of any privacy concerns related to visit: Yes Minutes spent on Phone/Video with Pt.: 22 Assessment and Plan Assessment & Plan (1) Ulcers of both lower extremities: Code(s): L97.919 - Non-pressure chronic ulcer of unspecified part of right lower leg with unspecified severity; L97.929 - Non-pressure chronic ulcer of unspecified part of left lower leg with unspecified severity Qualifiers: Non-pressure ulcer stage: unspecified non-pressure ulcer stage Qualified Code(s): L97.919 - Non-pressure chronic ulcer of unspecified part of right lower leg with unspecified severity; L97.929 - Non-pressure chronic ulcer of unspecified part of left lower leg with unspecified severity Plan: Patient has been seen by vascular surgery at [place] in the past and was advised that her ulcers are non-vascular in origin Previous workups, including arterial duplex, venous doppler, angiogram and CTA of the aorta, have all come back normal She was seen also by Dr. Rees here [place] [facility] [place] and venous insufficiency testing done were all negative as well Her painful ulcers have responded to empiric Tx with oral prednisone in the past so there is a likely possibility that her ulcers have an autoimmune or vasculitic component although vasculitis work ups done by rheumatology in the past were all negative except for a borderline positive dsDNA She was also referred to dermatology for consideration for skin biopsy and was seen by Dr. Sandoval in June 2023 but he seems to think that these are stasis ulcers and did not warrant further investigation; they apparently also have reservations about doing a skin biopsy which may create a new open wound that may be troublesome to heal She recently had a skin biopsy done by the wound clinic (last month) and her specimens were sent out to [facility] for immunofluorescence studies - there is no report available on these yet at this time She continues to follow up with the Wound Clinic regularly for management of her lower extremity ulcers She is currently also requesting to be started back on oral Prednisone to help w ith her painful ulcers and also for a referral to rheumatology at [facility] in [place] for further evaluation Referral to [facility] Rheumatology done Will start her on Prednisone 20 mg QD x 7 days Per request, will provide her again with Rx for #7 tablets of Oxycodone 10 mg to take at bedtime ONLY as needed for severe pain (2) Pure hypercholesterolemia: Code(s): E78.00 - Pure hypercholesterolemia, unspecified Plan: Reinforced low cholesterol diet Continue Atorvastatin 80 mg QD Have reminded patient to get her follow up labs and fasting lipids done next month before her upcoming appt (3) Benign essential hypertension: Code(s): I10 - Essential (primary) hypertension Plan: Reinforced low-sodium diet - goal is systolic BP of at least 140 mm or less Continue Candesartan 32 mg QD; HCTZ was previously discontinued (4) Paroxysmal atrial fibrillation: Code(s): I48.0 - Paroxysmal atrial fibrillation Plan: Patient was in sinus rhythm at her last in-person visit and currently remains asymptomatic from a cardiac standpoint Follow up with Cardiology as scheduled (5) Asthma: Code(s): J45.909 - Unspecified asthma, uncomplicated Qualifiers: Asthma complication type: uncomplicated Asthma persistence: persistent Asthma severity: moderate Qualified Code(s): J45.40 - Moderate persistent asthma, uncomplicated Plan: Continue Advair HFA 115-21 mcg 2 inhalations BID and Albuterol HFA 1 to 2 inhalations Q 6 hours PRN States that she uses her nebulizer only when needed (6) Allergic rhinitis: Code(s): J30.9 - Allergic rhinitis, unspecified Qualifiers: Allergic rhinitis seasonality: seasonal Allergic rhinitis trigger: pollen Qualified Code(s): J30.1 - Allergic rhinitis due to pollen Plan: Continue Loratadine 10 mg QD PRN (7) GERD without esophagitis: Code(s): K21.9 - Gastro-esophageal reflux disease without esophagitis Plan: Dietary restrictions reinforced Continue Omeprazole 40 mg QD (8) Vitamin D deficiency: Code(s): E55.9 - Vitamin D deficiency, unspecified Plan: Continue Vitamin D3 1000 units QD (9) Osteoporosis: Code(s): M81.0 - Age-related osteoporosis without current pathological fracture Qualifiers: Osteoporosis type: unspecified Presence of current pathological fractur e: without current pathological fracture Qualified Code(s): M81.0 - Age-related osteoporosis without current pathological fracture Plan: Repeat BMD done in July 2022 revealed that patient's BMD has declined significantly from her previous scan in July 2017, especially in the left femur, which has a 23.2% decrease from previous Her A/P spine BMD is mostly unchanged and her lowest T-score is now at -3.2 in the femoral neck Patient has been on Alendronate 70 mg Q week for years (unclear when she actually started taking it but most likely > 5 years) and we have instructed patient at her last follow up appointment to finish up her current supply of Alendronate, then D/C the Rx Will also consider having her see endocrinology for this once her current issues with her lower extremity ulcers are under better control (10) Constipation: Code(s): K59.00 - Constipation, unspecified Qualifiers: Constipation type: unspecified constipation type Qualified Code(s): K59.00 - Constipation, unspecified Plan: Reinforced increased oral fluids and dietary fiber Continue Amitiza 24 mcg BID (11) Primary osteoarthritis involving multiple joints: Code(s): M89.49 - Other hypertrophic osteoarthropathy, multiple sites Plan: Mostly involving her right knee -? she has received cortisone injection from Orthopedics in the past without any significant relief Have advised her again that physical therapy can help with her knee pain if her symptoms get worse -? patient does not want to pursue this for now, especially with her recurrent painful ulcers ongoing currently Continue Tramadol 50 mg TID PRN and Gabapentin 100 mg BID - patient requested to have dose reduced at her last visit Follow-up with Orthopedics as scheduled or as needed (12) Insomnia: Code(s): G47.00 - Insomnia, unspecified Qualifiers: Insomnia type: unspecified Qualified Code(s): G47.00 - Insomnia, unspecified Plan: Sleep hygiene reinforced Continue Zolpidem 10 mg Q HS PRN (13) Anxiety: Code(s): F41.9 - Anxiety disorder, unspecified Plan: Continue Lorazepam 0.5 mg 2 to 3 times a day as needed Mirtazapine also appears to be helping (14) Depression: Code(s): F32.9 - Major depressive disorder, single episode, unspecified Qualifiers: Active/Remission status: currently active Depression Type: major depressive disorder Major depression episode severity: unspecified Major depression recurrence: recurrent Qualified Code(s): F33.9 - Major depressive disorder, recurrent, unspecified Plan: Continue Mirtazapine 15 mg Q HS (15) Obesity (BMI 30-39.9): Code(s): E66.9 - Obesity, unspecified Plan: Reinforced diet; exercise and weight loss are unrealistic given patient's current ongoing issues and multiple comorbidities Plan Follow up as scheduled next month Orders: Referrals Rheumatology Referral L97.919 - Non-pressure chronic ulcer of unspecified part of right lower leg with unspecified severity, L97.929 - Non-pressure chronic ulcer of unspecified part of left lower leg with unspecified severity Medications: Changed From prednisone take 2 tabs daily for 1 week then remain on 1 tab daily 44 tabs 0RF To prednisone 20 mg PO DAILY 7 tabs 0RF 7 days Refilled oxycodone Partial Fill upon patient request. 10 mg PO BEDTIME PRN 7 tabs 0RF severe pain Coding Level of Care Code Tele Est Pt Level 4 (68502) Diagnoses Ulcers of both lower extremities, unspecified ulcer stage L97.919; L97.929 Non-pressure ulcer stage: unspecified non-pressure ulcer stage Pure hypercholesterolemia E78.00 Benign essential hypertension I10 Paroxysmal atrial fibrillation I48.0 Moderate persistent asthma without complication J45.40 Asthma complication type: uncomplicated Asthma persistence: persistent Asthma severity: moderate Seasonal allergic rhinitis due to pollen J30.1 Allergic rhinitis seasonality: seasonal Allergic rhinitis trigger: pollen GERD without esophagitis K21.9 Vitamin D deficiency E55.9 Osteoporosis without current pathological fracture, unspecified osteoporosis type M81.0 Osteoporosis type: unspecified Presence of current pathological fracture: without current pathological fracture Constipation, unspecified constipation type K59.00 Constipation type: unspecified constipation type Primary osteoarthritis involving multiple joints M89.49 Insomnia, unspecified type G47.00 Insomnia type: unspecified Anxiety F41.9 Episode of recurrent major depressive disorder, unspecified depression episode severity F33.9 Active/Remission status: currently active Depression Type: major depressive disorder Major depression episode severity: unspecified Major depression recurrence: recurrent Obesity (BMI 30-39.9) E66.9
== END 2024-01-01 10:33 | disposition home or self-care (01) ==
LOC: HO.HMGH 08:50
PROVIDERS: PCP Internal Medicine; Visit Provider Internal Medicine
DX: L97.919 Non-pressure chronic ulcer of unspecified part of right lower leg with unspecified severity (principal); L97.929 Non-pressure chronic ulcer of unspecified part of left lower leg with unspecified severity; I48.0 Paroxysmal atrial fibrillation; F33.9 Major depressive disorder, recurrent, unspecified; E78.00 Pure hypercholesterolemia, unspecified; I10 Essential (primary) hypertension; J45.40 Moderate persistent asthma, uncomplicated; J30.1 Allergic rhinitis due to pollen; K21.9 Gastro-esophageal reflux disease without esophagitis; E55.9 Vitamin D deficiency, unspecified; M81.0 Age-related osteoporosis without current pathological fracture; K59.00 Constipation, unspecified; M89.49 Other hypertrophic osteoarthropathy, multiple sites; G47.00 Insomnia, unspecified; F41.9 Anxiety disorder, unspecified
CPT/HCPCS: 99214

== ENCOUNTER 2024-02-20 12:39 | Outpatient (AMB) | payer OTHER, SELFPAY ==
--- NOTE | 2024-02-20 12:43 | A.OFFVIS_ITS ---
Vital Signs 02/20/24 12:47 Height 5 ft 2 in Weight 185 lb 6.54 oz BMI 33.9 BP 124/80 Blood Pressure Location Rt brachial Position Sitting Pulse 77 Pulse Source Pulse Oximeter Pulse Oximetry (%) 97 Oxygen Delivery Method Room Air Intake Visit Reasons: SKin ulcer/CM Intake Note: Patient presents for skin ulcer. Sales Order Administrator Required: Yes Sales Order Administrator Services: Sales Order Administrator Present Sales Order Administrator Name: Doreen [id number] Information Interpreted: non-clinical & clinical Allergies Penicillins Allergy (Intermediate, Verified 02/20/24 12:46) Hives oxaprozin [From Daypro] Allergy (Unknown, Verified 02/20/24 12:46) RASH hydroxychloroquine Adverse Reaction (Intermediate, Verified 02/20/24 12:46) Abdominal Pain budesonide [Symbicort] Adverse Reaction (Unknown, Verified 02/20/24 12:46) nausea and vomiting Medication List - Last Reconciled 02/20/24 by Fausto Bowens MD acetaminophen ER 650 mg PO Q8H PRN 30 days Advair HFA 115-21 mcg/actuation (fluticasone propion-salmeterol) 2 puffs inhalation BID NS albuterol sulfate 90 mcg/actuation 1 puff inhalation Q6H albuterol sulfate 2.5 mg (3 mL) continuous nebulization QID PRN alclometasone 0.05% appl topical alendronate 70 mg PO QWEEK 3 months atorvastatin 80 mg PO BEDTIME 90 days calcium carbonate-vit D3-min 600 mg calcium- 200 unit 1 tab PO DAILY candesartan 32 mg PO DAILY cholecalciferol (vitamin D3) 25 mcg PO DAILY 90 days [disposable bed pads As directed 4 per day ] doxycycline monohydrate 100 mg PO BID 10 days fluticasone propionate 110 mcg/actuation (Flovent HFA) 2 puffs inhalation BID 30 days folic acid 1 mg PO DAILY gabapentin 300 mg PO BID [gloves As directed] inhalational spacing device (Aerochamber MV spacer) As directed lactulose 20 grams (30 mL) PO DAILY PRN lidocaine 5% 1 appl topical TID PRN loratadine 10 mg PO DAILY PRN 90 days lubiprostone (Amitiza) 24 mcg PO BID mineral oil (Fleet Mineral Oil enema) 133 mL GA DAILY PRN mirtazapine 15 mg PO BEDTIME 90 days miscellaneous medical supply Power Lift Chair - As directed - to use indefinatly mupirocin 2% 1 appl topical TID mupirocin 2% 1 appl topical BID mupirocin 2% 1 appl topical TID oxycodone 10 mg PO BEDTIME PRN oxycodone 10 mg PO BEDTIME PRN polyethylene glycol 3350 (Miralax) 17 grams PO DAILY PRN sennosides (senna) 8.6 mg PO DAILY silver sulfadiazine 1% (Silvadene) 1 appl topical BID tramadol 50 mg PO BID PRN 30 days zolpidem 10 mg PO BEDTIME PRN 30 days HPI Comments Details: 78-year-old female with leg ulcers returns for follow-up. About 6 weeks ago patient was prescribed a 7 day course of prednisone for her an ulcers on her legs. She stated that the wounds have close. And they have stayed close. She does not have any open wounds today. She gets burning pain along her feet and legs especially at night. Initial history: This is a 77-year-old female who presents for evaluation of bilateral leg ulcers. Per daughter these started about 2 years ago. They occur on the ankles and heels. They common go. The rashes start as a A skin bleb, eventually the skin breaks off, she would have a painful ulcer, then it heals. Recently she has been having painful ulcers in both her heels. She states that she cannot even wear socks due to the severe pain. She denies any significant trauma to the heel. The rashes are not itchy. She is unaware of any self or family history of autoimmune rheumatic disease. She denies any fevers or weight loss. Denies any painful or swollen joints. She was evaluated by vascular surgery and had angiogram and according to the notes, the angiogram was unremarkable and no further intervention was suggested. [facility] Medical History Constipation Osteoporosis Allergic rhinitis Insomnia Osteoarthritis Obesity (BMI 30-39.9) Depression Anxiety Osteopenia Vitamin D deficiency GERD without esophagitis Asthma Paroxysmal atrial fibrillation Pure hypercholesterolemia Benign essential hypertension PAF (paroxysmal atrial fibrillation) Surgical History History of colonoscopy Family History Father CVD (cardiovascular disease) Stroke Mother Medical history unknown Social History Housing: Apartment Alcohol intake: never Patient Tobacco Use Status: Never used Tobacco e-Cigarette/Vaping Use: Never Used Second Hand Smoke Exposure: Yes service: No Current occupational status: disabled Cognitive needs: No Hearing needs: No Vision needs: Yes (glasses) Review of Systems Skin/Breast Denies non-healing lesions and Denies wounds Physical Exam Vital Signs: Last Vital Signs Pulse 77 02/20/24 12:47 BP 124/80 02/20/24 12:47 Pulse Ox 97 02/20/24 12:47 Oxygen Delivery Method Room Air 02/20/24 12:47 BMI result Body Mass Index 33.9 Const General: cooperative, healthy appearing and comfortable Nutritional Appearance: obese Orientation/consciousness: patient oriented x3 Limitations: no limitations HEENT Head: Yes normocephalic and Yes atraumatic Resp Effort & Inspection: normal respiratory effort and able to speak in complete sentences GI Inspection: No distended Palpation (GI): Soft to palpation Skin Other: Signs of chronic venous stasis both legs No open wounds today Neuro General: patient oriented x3 Extrem Other: No active synovitis. Osteoarthritic changes of both hands Normal nailfold capillaroscopy Results Reviewed Results Reviewed: MR Foot LT W WO - 04/17/23 - Report Status:Signed INDICATION: NON HEALING LT HEEL WOUND OSTEOMYELITIS ? COMPARISON: None ? TECHNIQUE: Multiplanar, multisequence MRI was performed of the left foot without and after the uneventful intravenous contrast administration of 17 mL Dotarem. ? FINDINGS: ? Bone: A posterior plantar calcaneal spur is noted. There is no abnormal T1 marrow replacement or surrounding hyperintense signal on fluid sensitive sequences involving the left hindfoot. Degenerative change with cystic change is noted involving the anterior process of the calcaneus. No osteochondral lesion is noted. Degenerative changes are noted involving the third TMT. ? Soft Tissues: Mild subcutaneous soft tissue swelling is noted along the heel pad. There is thickening of the plantar fascia in keeping with chronic plantar fasciitis. Left ankle joint fluid is present. After intravenous contrast administration, there is mild enhancement of the subcutaneous soft tissues along the heel pad in keeping with cellulitis. No drainable fluid collection is noted. ? ? IMPRESSION: Heel pad thickening with mild enhancement which may represent cellulitis without MRI findings to suggest osteomyelitis of the left hindfoot. Skin biopsy 11/07/2022 Addendum #1 GMS and PAS-F stains are negative for fungi with appropriate controls. Electronically Signed By: Maira Dueñas 11/12/23 1411 Diagnosis Skin, left lower extremity wound, biopsy: Benign skin with ulcer and granulation tissue; no evidence of malignancy and no vasculitis identified. Comment: If there is concern for an immune-mediated process, sending a fresh specimen for immunofluorescence studies may be helpful. Fungal stains pending; addendum to follow Skin biopsy 11/2023 Final diagnosis: Skin left lower leg wound tissue Specimen 1.- healing scar Comment: Sections reveal a fragment of epidermis that is acanthotic with hyperkeratosis and the dermis that has a diffuse fibrovascular proliferation with a low-density perivascular chronic inflammation, no vasculitis or vasculopathy is observed. The histopathologic changes are nonspecific. Clinical pathologic correlation is recommended Specimen 2 Direct immunofluorescence is negative for (IgG, IgA, IgM, C3 and fibrinogen) ? ? ? Assessment & Plan Assessment & Plan (1) Ulcer of left lower leg: Code(s): L97.929 - Non-pressure chronic ulcer of unspecified part of left lower leg with unspecified severity Category: Medical Qualifiers: Non-pressure ulcer stage: limited to breakdown of skin Qualified Code(s): L97.921 - Non-pressure chronic ulcer of unspecified part of left lower leg limited to breakdown of skin (2) Ulcer of right lower leg: Code(s): L97.919 - Non-pressure chronic ulcer of unspecified part of right lower leg with unspecified severity Category: Medical Qualifiers: Non-pressure ulcer stage: limited to breakdown of skin Qualified Code(s): L97.911 - Non-pressure chronic ulcer of unspecified part of right lower leg limited to breakdown of skin Plan: This is a 78-year-old female who presents for evaluation of recurrent painful ulcers of her ankles and feet. Her ulcers historically would respond to prednisone. Upon rheumatologic evaluation she had minimally elevated inflammatory markers and borderline positive dsDNA with no signs suggestive of an autoimmune rheumatic disease. Hydroxychloroquine was tried, was not helpful. Patient had a couple of skin biopsies both did not show any evidence of an underlying autoimmune process, the most recent biopsy done 11/2023 was negative, immunofluorescence was also done and it was negative. She was evaluated by vascular surgery and angiogram was performed and according to notes it was unremarkable. No further intervention was suggested. On exam today, Patient's leg ulcers have healed up without any consistent prednisone use I think at this time it is safe to say that her ulcers are simple venous ulcers and should be managed accordingly. Discussed leg elevation, weight loss, compression stockings. There is likely a component of peripheral neuropathy, her gabapentin dose may be increased as well Follow-up as needed Plan I spent 25 minutes reviewing patient's chart, evaluating patient, counseling patient, discussing with patient's daughter over the phone and documenting in the chart Coding Level of Care Code Est Pt Level 4 (25040) Diagnoses Skin ulcer of left lower leg, limited to breakdown of skin L97.921 Non-pressure ulcer stage: limited to breakdown of skin Skin ulcer of right lower leg, limited to breakdown of skin L97.911 Non-pressure ulcer stage: limited to breakdown of skin
[2024-02-20 12:47] VITALS: BP 124/80; PULSE 77; O2SAT 97; BMI 33.9
== END 2024-02-20 13:05 | disposition home or self-care (01) ==
PROVIDERS: PCP Internal Medicine; Visit Provider Student in an Organized Health Care Education/Training Program
DX: L97.921 Non-pressure chronic ulcer of unspecified part of left lower leg limited to breakdown of skin (principal); L97.911 Non-pressure chronic ulcer of unspecified part of right lower leg limited to breakdown of skin
CPT/HCPCS: 99214

== ENCOUNTER → 2024-02-20 12:39 | Outpatient (BNVA) | payer OTHER, SELFPAY | PROVIDERS: PCP Internal Medicine; Visit Provider Student in an Organized Health Care Education/Training Program | DX: L97.921 Non-pressure chronic ulcer of unspecified part of left lower leg limited to breakdown of skin (principal); L97.911 Non-pressure chronic ulcer of unspecified part of right lower leg limited to breakdown of skin | CPT/HCPCS: 99212 ==

== ENCOUNTER → 2024-03-11 14:15 | Outpatient (RCR) | payer OTHER, SELFPAY ==
[2020-07-29 15:41] VITALS: BP 143/73; PULSE 80; RESP 18; TEMP 36.8; O2SAT 94; BMI 33.9
--- NOTE | 2020-07-29 15:51 | P.PNHO_ITS ---
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 Normal IgA and IgM levels. No anemia, renal dysfunction or hypercalcemia. Interval History Interval history: Patient is here accompanied by her daughter today. She is doing very well and has no new complaints today. She denies any fever, chills, night sweats or recent infections. No changes to her medications. She denies exertional chest pain or shortness of breath. She has chronic arthralgias but these are stable. [facility] Medical History: Medical History (Last Updated 07/22/20 @ 14:54 by Milton Ackerman MD) Anxiety Asthma Benign essential hypertension Depression GERD without esophagitis Obesity (BMI 30-39.9) Osteoarthritis Osteopenia PAF (paroxysmal atrial fibrillation) Paroxysmal atrial fibrillation Pure hypercholesterolemia Vitamin D deficiency Family History: Family History (Last Reviewed 07/22/20 @ 14:39 by Milton Ackerman MD) Father CVD (cardiovascular disease) Stroke Mother Medical history unknown Surgical History: Surgical History (Last Reviewed 07/22/20 @ 14:39 by Milton Ackerman MD) History of colonoscopy Home Medications and Allergies Home Medications Medication Instructions Recorded Confirmed Type atorvastatin 80 mg tablet 80 mg PO BEDTIME 07/22/20 07/22/20 History Allergies Allergy/AdvReac Type Severity Reaction Status Date / Time acetaminophen [From PERCOCET] Allergy Intermediate HIVES Verified 07/22/20 14:38 morphine [MORPHINE] Allergy Intermediate VOMITING Verified 07/22/20 14:38 Penicillins [PENICILLINS] Allergy Mild RASH Verified 07/22/20 14:38 oxaprozin [From Daypro] Allergy Unknown RASH Verified 07/22/20 14:38 penicillin G [Penicillin G] Allergy Unknown UNKNOWN Verified 07/22/20 14:38 penicillin V Allergy Unknown swelling, Verified 07/22/20 14:38 itchy throat oxycodone [From PERCOCET] AdvReac Intermediate VOMITING Verified 07/22/20 14:38 AND DIZZINESS budesonide [Symbicort] AdvReac Unknown nausea and Verified 07/22/20 14:38 vomiting formoterol [Symbicort] AdvReac Unknown nausea and Verified 07/22/20 14:38 vomiting Exam Vital signs: Vital Signs Temp 98.3 F 01/15/21 15:41 Pulse 80 07/29/20 15:41 Resp 18 07/29/20 15:41 BP 143/73 H 07/29/20 15:41 Pulse Ox 94 07/29/20 15:41 Intake & Output 07/28/20 07/29/20 07/29/20 18:59 06:59 18:59 Other: Weight 81.4 kg Weight 81.4 kg Body Mass Index 33.9 - Constitutional Present: no acute distress - Routine HEENT Exam Head: Present: normal inspection Eye: Present: EOMI - Routine Neck Exam Present: full ROM. Absent: lymphadenopathy - Routine Respiratory Exam Present: CTAB - Routine Cardiovascular Exam Cardiovascular: Present: S1, S2 - Routine Skin Exam Present: intact. Absent: erythema - Routine Neurological Exam Present: oriented X3 Progress Note: A/P (1) MGUS (monoclonal gammopathy of unknown significance) Status: Chronic Assessment and plan: 1. This is a 74-year-old woman found to have IgG monoclonal gammopathy on routine blood work. Immunoglobulin levels are all normal. She has no evidence of end-organ damage, anemia, hypercalcemia or renal dysfunction. Repeat blood work with serum immunofixation and serum kappa/lambda light chain assay is being submitted today. Overall patient is doing quite well and has had no interim medical problems or infections. Follow-up in 1 year. - Time Spent With Patient Total time spent is greater than 50% in coordination of care (as documented) at patient's floor/unit and/or counseling patient: 15 - 24 minutes
[2020-08-01 13:23] LABS: IgA 136 mg/dL (70-320); IgG 703 mg/dL (600-1540); IgM 74 mg/dL (50-300)
[2020-08-03 14:17] LABS: Kappa, Serum 170 mg/dL (176-443); Kappa/Lambda Ratio, Serum 1.87 (1.29-2.55); Lambda, Serum 91 mg/dL (91-240)
== END | disposition home or self-care (01) ==
LOC: HO.ONC 07-29 14:29
PROVIDERS: PCP Internal Medicine; Visit Provider Internal Medicine
DX: D47.2 Monoclonal gammopathy (principal)
CPT/HCPCS: 36415; 82784; 83883; 86334; 99213

== ENCOUNTER 2024-03-30 18:48 | Emergency (ER) | payer OTHER, SELFPAY ==
--- NOTE | ~2024-03-30 | US_ITS ---
EXAMINATION: US TRIPLEX LOWER EXTREMITY, BILATERAL CLINICAL INFORMATION: Bilateral leg pain. COMPARISON: None available. TECHNIQUE: Color-flow triplex imaging with spectral analysis and compression Doppler were performed on the bilateral lower extremities. FINDINGS: Respiratory variation, normal compression and augmented flow are noted throughout the bilateral lower extremities. The visualized common femoral vein, superficial femoral vein, profunda femoral vein, popliteal vein and midcalf peroneal and posterior tibial venous segments show no evidence of deep venous thrombosis bilaterally. There is no Hurst's cyst. US/US venous duplex LE BI IMPRESSION: No evidence of deep venous thrombosis involving the bilateral lower extremities. Electronically signed by: Lasha Sosa DO 03/30/2024 10:14 PM EDT
[2024-03-30 19:25] VITALS: BP 142/78; BP 181/90; PULSE 76; PULSE 81; RESP 18; TEMP 37.2; O2SAT 95; O2SAT 96; BMI 35.0
[2024-03-30 20:20] LABS: MANUAL DIFF FLAG NO
[2024-03-30 20:22] LABS: Basophils Percent Auto 0.2 % (0-2); Hematocrit 40.5 % (37.0-47.0); Hemoglobin 12.7 g/dl (12.0-16.0); Imm Gran Abs Auto 0.06 X10*3/uL (0.00-0.03); Imm Gran Pct Auto 0.5 % (0.0-0.4); Lymphocytes Absolute Auto 0.9 X10*3/uL (1.2-4.9); Lymphocytes Percent Auto 7.8 % (20-40); Mean Corpuscular HGB Conc 31.4 g/dl (31.0-35.0); Mean Corpuscular Hemoglobin 27.6 pg (27.0-33.0); Mean Platelet Volume 10.9 fL (9.4-12.3); Monocytes Absolute Auto 0.4 X10*3/uL (0.1-1.2); Monocytes Percent Auto 3.4 % (2-11); Neutrophils Absolute Auto 9.7 x10*3/uL (2.0-8.3); Neutrophils Percent Auto 88.1 % (45-73); Platelet Count 276 X10*3/uL (160-400); Red Cell Distribution Width 14.4 % (11.0-16.0)
--- NOTE | 2024-03-30 20:26 | ED.SKABFB ---
HPI - Skin/Abscess/Foreign Bdy General Chief complaint: Skin/Abscess/Foreign Body Stated complaint: Rash spread x2 days [place] only Time Seen by Provider: 03/30/24 19:36 Source: patient, family, old records reviewed and doctor of naprapathic medicine Mode of arrival: ambulatory Limitations: no limitations History of Present Illness ED Provider: CARLITOS HPI narrative: 78 yo female with PMH of varicose veins, venous stasis ulcers, osteoporosis, MGUS, obesity, depression, anxiety, GERD, asthma, PAF not on thinners, HTN, HLD here with c/o non pruritic, non painful spontaneous rash she noted today when she went to shower. She denies exposures, trauma or any issue that could cause this. She has had similar rash on ankles to the past but never to the thigh. No fevers or chills. MD complaint: rash Onset (ago): day(s) (1) Tetanus up to date: yes Location: LLE and RLE Severity: moderate Relieving factors: none Exacerbating factors: none Context: none Associated symptoms: denies other symptoms Treatments prior to arrival: none Related Data Home Medications ?Medication ?Instructions ?Recorded ?Confirmed calcium carb-vit D3-minerals 600 1 tab PO DAILY 09/26/22 01/01/24 mg calcium-200 unit tablet alclometasone 0.05 % topical cream appl topical 11/19/23 01/01/24 Previous Rx's ?Medication ?Instructions ?Recorded inhalational spacing device #1 ea 04/07/21 (Aerochamber MV spacer) miscellaneous medical supply #1 ea 08/15/21 fluticasone propionate 110 2 puff inhalation BID 30 days #12 10/31/22 mcg/actuation HFA aerosol inhaler grams (Flovent HFA) mupirocin 2 % topical ointment 1 appl topical TID #22 grams 03/03/23 silver sulfadiazine 1 % topical 1 appl topical BID #25 grams 03/07/23 cream (Silvadene) mineral oil (Fleet Mineral Oil 133 ml HI DAILY PRN constipation 04/08/23 enema) #266 mL polyethylene glycol 3350 17 17 g PO DAILY PRN constipation 04/08/23 gram/dose oral powder (Miralax) #238 grams sennosides 8.6 mg tablet (senna) 8.6 mg PO DAILY #90 tabs 07/31/23 folic acid 1 mg tablet 1 mg PO DAILY #90 tabs 09/13/23 disposable bed pads #1 ea 10/01/23 gloves #1 ea 10/01/23 gabapentin 300 mg capsule 300 mg PO BID #60 caps 10/05/23 mupirocin 2 % topical ointment 1 appl topical BID #22 grams 10/05/23 cholecalciferol (vitamin D3) 25 25 mcg PO DAILY 90 days #90 caps 10/09/23 mcg (1,000 unit) capsule doxycycline monohydrate 100 mg 100 mg PO BID 10 days #20 caps 11/01/23 capsule albuterol sulfate 90 mcg/actuation 1 puff inhalation Q6H #8.5 ea 11/26/23 aerosol inhaler alendronate 70 mg tablet 70 mg PO QWEEK 3 months #13 tabs 01/03/24 acetaminophen 650 mg 650 mg PO Q8H PRN pain 30 days #90 01/15/24 tablet,extended release tabs candesartan 32 mg tablet 32 mg PO DAILY #90 tabs 01/17/24 albuterol sulfate 2.5 mg/3 mL 2.5 mg (3 mL) continuous 01/21/24 (0.083 %) solution for nebulization nebulization QID PRN shortness of breath or wheezing #90 mL Advair HFA 115 mcg-21 2 puff inhalation BID #12 grams 01/28/24 mcg/actuation aerosol inhaler (fluticasone propion-salmeterol) mupirocin 2 % topical ointment 1 appl topical TID #22 grams 01/29/24 zolpidem 10 mg tablet 10 mg PO BEDTIME PRN sleep 30 days 01/29/24 #30 tabs lactulose 20 gram/30 mL oral 20 g (30 mL) PO DAILY PRN 02/07/24 solution constipation #420 mL atorvastatin 80 mg tablet 80 mg PO BEDTIME 90 days #90 tabs 02/09/24 lubiprostone 24 mcg capsule 24 mcg PO BID #60 caps 02/26/24 (Amitiza) mirtazapine 15 mg tablet 15 mg PO BEDTIME 90 days #90 tabs 02/28/24 oxycodone 10 mg tablet 10 mg PO BEDTIME PRN severe pain 02/28/24 #7 tabs tramadol 50 mg tablet 50 mg PO BID PRN pain 30 days #60 03/02/24 tabs oxycodone 10 mg tablet 10 mg PO BEDTIME PRN severe pain 03/19/24 #7 tabs lidocaine 5 % topical ointment 1 appl topical TID PRN pain #50 03/20/24 grams loratadine 10 mg tablet 10 mg PO DAILY PRN allergy 03/22/24 symptoms 90 days #90 tabs prednisone 10 mg tablets in a dose See Rx Instructions PO PER PKG DIR 03/27/24 pack 8 days #20 tabs prednisone 20 mg tablet 40 mg (2 x 20 mg) PO DAILY 5 days 03/30/24 #10 tabs Allergies Allergy/AdvReac Type Severity Reaction Status Date / Time Penicillins Allergy Intermediate Hives Verified 03/30/24 19:31 oxaprozin [From Daypro] Allergy Unknown RASH Verified 03/30/24 19:31 hydroxychloroquine AdvReac Intermediate Abdominal Verified 03/30/24 19:31 Pain budesonide [Symbicort] AdvReac Unknown nausea and Verified 03/30/24 19:31 vomiting Review of Systems Review of Systems: Constitutional : No Fever, No Chills ENT/Mouth : No sore throat, No Rhinorrhea Eyes: No Eye Pain, No Swelling, No Redness Cardiovascular : No Chest Pain, No SOB Respiratory : No Cough, No Sputum Gastrointestinal : No Nausea, No Vomiting, No Diarrhea, No abdominal Pain Genitourinary : No Dysuria, No Hematuria Musculoskeletal : No joint pain, No Myalgias, No Joint Swelling Skin : pos skin Lesions, positive skin rash Neuro : No Weakness, No Numbness, No Headache Psych : No Anxiety, No Depression Heme/Lymph: No Bruising, No Bleeding,No Lymphadenopathy Endocrine : No Polyuria, No Polydipsia All other systems reviewed and are negative [facility] Past Medical History Attestation statement: The following information was validated with the patient. Source: old records reviewed Medical History Constipation Osteoporosis Allergic rhinitis Insomnia Osteoarthritis Obesity (BMI 30-39.9) Depression Anxiety Osteopenia Vitamin D deficiency GERD without esophagitis Asthma Paroxysmal atrial fibrillation Pure hypercholesterolemia Benign essential hypertension PAF (paroxysmal atrial fibrillation) Surgical History History of colonoscopy Family History Family History Father CVD (cardiovascular disease) Stroke Mother Medical history unknown Social History Social History Housing: Apartment Alcohol intake: never Patient Tobacco Use Status: Never used Tobacco e-Cigarette/Vaping Use: Never Used Second Hand Smoke Exposure: Yes Advance Directives: No Advance Directives Information Provided: No Do you have a plan to hurt others: No Plan service: No Current occupational status: disabled Cognitive needs: No Hearing needs: No Vision needs: Yes (glasses) Physical Exam Vital Signs: Vital Signs: Last Vital Signs Temp 98.9 F 03/30/24 19:25 Pulse 76 03/30/24 19:25 Resp 18 03/30/24 19:25 BP 181/90 H 03/30/24 19:25 Pulse Ox 96 03/30/24 19:25 O2 Del Method Room Air 03/30/24 19:25 BMI result Body Mass Index 35.0 Appearance: Alert. Oriented X3. No acute distress. Eyes: Pupils equal, round and reactive to light. ENT: Pharynx normal. Neck: Normal inspection. Neck supple. CVS: Normal heart rate and rhythm. Pulses normal. Respiratory: No respiratory distress. Breath sounds normal. Abdomen: Soft and non-tender. Skin: Skin warm and dry. Normal skin color. Normal skin turgor. Extremities: No lower extremity edema. both legs faint lacy red scarlet rash from ankles up to thigh but it appears like her pants and it is white along the inseam of her paints. it does not nomi and there is no pain or swelling Neuro: Oriented X 3. No motor deficit. No sensory deficit. Medical Decision Making Medical Decision Making MDM Narrative: 78 yo female with PMH of varicose veins, venous stasis ulcers, osteoporosis, MGUS, obesity, depression, anxiety, GERD, asthma, PAF not on thinners, HTN, HLD here with c/o non painful non pruritic rash on both legs that she noted from the shower today. At this time rash does not appear to be petechia or infectious it spares the lines on the inseams of her pants. She has normal pulses - will obtain labs, plts, ESR, Venous duplex. Possibly start prednisone given vasculiitis appearance Differential Diagnosis Differential Diagnoses: The differential diagnosis associated with the presentation includes rash, vasculitis, thrombocytopenia Admission/Observation Consideration of admission/observation: Escalation of care including admission/observation considered work up negative can be started on steroids and PCP follow up Lab Data MDM Lab Attestation statement: I reviewed the patient's lab results. 03/30/24 20:15 03/30/24 20:16 Labs: Lab Results 03/30/24 03/30/24 Range/Units 20:15 20:16 WBC 11.0 H (4.8-10.8) X10*3/uL RBC 4.60 (4.20-5.50) X10*6/uL Hgb 12.7 (12.0-16.0) g/dl Hct 40.5 (37.0-47.0) % MCV 88.0 (80.0-98.0) fL MCH 27.6 (27.0-33.0) pg MCHC 31.4 (31.0-35.0) g/dl RDW 14.4 (11.0-16.0) % Plt Count 276 (160-400) X10*3/uL MPV 10.9 (9.4-12.3) fL Immature Gran % (Auto) 0.5 H (0.0-0.4) % Neut % (Auto) 88.1 H (45-73) % Lymph % (Auto) 7.8 L (20-40) % [place] % (Auto) 3.4 (2-11) % Eos % (Auto) 0.0 (0-4) % Baso % (Auto) 0.2 (0-2) % Lymph # (Auto) 0.9 L (1.2-4.9) X10*3/uL [place] # (Auto) 0.4 (0.1-1.2) X10*3/uL Eos # (Auto) 0.0 (0.0-0.4) X10*3/uL Baso # (Auto) 0.0 (0.0-0.2) X10*3/uL Abs Immat Gran (auto) 0.06 H (0.00-0.03) X10*3/uL Absolute Neuts (auto) 9.7 H (2.0-8.3) x10*3/uL Absolute Nucleated RBC 0.000 (0.0-0.012) X10*3/uL Nucleated RBC % (auto) 0.0 (0.0-0.2) /100WBC PT 11.1 (11.1-13.3) SEC INR 0.9 (0.9-1.1) Sodium 144 (135-145) mmol/L Potassium 4.4 (3.3-5.1) mmol/L Chloride 107 (96-108) mmol/L Carbon Dioxide 25 (22-29) mmol/L Anion Gap 16 (12-20) BUN 27 H (9-16) mg/dL Creatinine 0.96 (0.5-1.4) mg/dL Estim Creat Clear Calc 47.4 Estimated GFR 56 Random Glucose 116 H (60-115) mg/dL Calcium 9.2 (8.4-10.2) mg/dL Magnesium 2.2 (1.6-2.6) mg/dL Total Bilirubin 0.3 (0.0-1.0) mg/dL Direct Bilirubin 0.1 (0.0-0.5) mg/dL AST 17 (5-31) U/L ALT 12 (0-31) U/L Alkaline Phosphatase 96 (39-117) U/L Total Protein 7.3 (6.5-8.0) g/dL Albumin 4.3 (3.5-5.0) g/dL Independent Interpretation I performed an independent interpretation of an: Ultrasound (no DVT) Radiology Impression Discussion of test interpretation with radiology: I have reviewed the radiologist's reading. Independent Historian Clinical information obtained from an independent historian. History obtained from or confirmed by: Other (daughter) External Record Review External record reviewed: Outpatient record Prescription Management I considered prescription management with: Other Discharge Plan Discharge Clinical Impression: Rash and nonspecific skin eruption Patient Disposition: Home, Self-Care Instructions: Acute Rash (ED) Additional Instructions: rash is concerning for vasculitis, normal platelets today. no signs of blood clots in the legs return for worsening rash, fevers, swelling or any other concerns. please follow up with your doctor so they can monitor the rash Prescriptions: New prednisone 20 mg tablet 40 mg PO DAILY 5 Days Qty: 10 0RF No Action (DME) miscellaneous medical supply Misc 0 .Route Qty: 1 0RF Rx Instructions: Power Lift Chair - As directed - to use indefinatly sennosides [senna] 8.6 mg tablet 8.6 mg PO DAILY Qty: 90 4RF (DME) gloves Large See Rx Instructions .Route .MEDSUPPLY Qty: 1 0RF Rx Instructions: As directed (DME) disposable bed pads See Rx Instructions .Route .MEDSUPPLY Qty: 1 0RF Rx Instructions: As directed 4 per day doxycycline monohydrate 100 mg capsule 100 mg PO BID 10 Days Qty: 20 0RF albuterol sulfate 90 mcg/actuation HFA aerosol inhaler 1 puff inhalation Q6H Qty: 8.5 3RF alendronate 70 mg tablet 70 mg PO QWEEK 90 Days Qty: 13 1RF acetaminophen 650 mg tablet extended release 650 mg PO Q8H PRN (Reason: pain) 30 Days Qty: 90 3RF candesartan 32 mg tablet 32 mg PO DAILY Qty: 90 1RF albuterol sulfate 2.5 mg /3 mL (0.083 %) solution for nebulization 2.5 mg continuous nebulization QID PRN (Reason: shortness of breath or wheezing) Qty: 90 0RF fluticasone propion-salmeterol [Advair HFA] 115-21 mcg/actuation HFA aerosol inhaler 2 puff inhalation BID Qty: 12 3RF Rx Instructions: administer with spacer mupirocin 2 % ointment 1 appl topical TID Qty: 22 2RF zolpidem 10 mg tablet 10 mg PO BEDTIME PRN (Reason: sleep) 30 Days Qty: 30 2RF lactulose 20 gram/30 mL solution 20 g PO DAILY PRN (Reason: constipation) Qty: 420 0RF atorvastatin 80 mg tablet 80 mg PO BEDTIME 90 Days Qty: 90 1RF lubiprostone [Amitiza] 24 mcg capsule 24 mcg PO BID Qty: 60 1RF oxycodone 10 mg tablet 10 mg PO BEDTIME PRN (Reason: severe pain) Qty: 7 0RF Rx Instructions: Partial Fill upon patient request. mirtazapine 15 mg tablet 15 mg PO BEDTIME 90 Days Qty: 90 0RF tramadol 50 mg tablet 50 mg PO BID PRN (Reason: pain) 30 Days Qty: 60 0RF oxycodone 10 mg tablet 10 mg PO BEDTIME PRN (Reason: severe pain) Qty: 7 0RF Rx Instructions: Partial Fill upon patient request. lidocaine 5 % ointment 1 appl topical TID PRN (Reason: pain) Qty: 50 0RF loratadine 10 mg tablet 10 mg PO DAILY PRN (Reason: allergy symptoms) 90 Days Qty: 90 1RF prednisone 10 mg tablets,dose pack See Rx Instructions PO PER PKG DIR 8 Days Qty: 20 0RF Rx Instructions: 4 tablets x 2 days, then 3 tablets x 2 days, then 2 tablets x 2 days, then 1 tablet x 2 days calcium carbonate-vit D3-min 600 mg calcium- 200 unit tablet 1 tab PO DAILY mineral oil [Fleet Mineral Oil] Enema 133 ml HI DAILY PRN (Reason: constipation) Qty: 266 0RF Rx Instructions: discard any unused portion polyethylene glycol 3350 [Miralax] 17 gram/dose powder 17 g PO DAILY PRN (Reason: constipation) Qty: 238 0RF gabapentin 300 mg capsule 300 mg PO BID Qty: 60 0RF mupirocin 2 % ointment 1 appl topical BID Qty: 22 0RF mupirocin 2 % ointment 1 appl topical TID Qty: 22 0RF silver sulfadiazine [Silvadene] 1 % cream 1 appl topical BID Qty: 25 0RF Rx Instructions: apply a 1.5 mm thickness (DME) Aerochamber MV Spacer See Rx Instructions .Route Qty: 1 0RF Rx Instructions: As directed fluticasone propionate [Flovent HFA] 110 mcg/actuation HFA aerosol inhaler 2 puff inhalation BID 30 Days Qty: 12 5RF cholecalciferol (vitamin D3) 25 mcg (1,000 unit) capsule 25 mcg PO DAILY 90 Days Qty: 90 3RF folic acid 1 mg tablet 1 mg PO DAILY Qty: 90 1RF alclometasone 0.05 % cream topical Print Language: Divehi
[2024-03-30 20:31] LABS: INTERNATIONAL NORM RATIO 0.9 (0.9-1.1); Prothrombin Time 11.1 SEC (11.1-13.3)
[2024-03-30 20:38] LABS: Alanine Aminotransferase 12 U/L (0-31); Albumin Level 4.3 g/dL (3.5-5.0); Alkaline Phosphatase 96 U/L (39-117); Anion Gap 16 (12-20); Aspartate Amino Transferase 17 U/L (5-31); Bilirubin Direct 0.1 mg/dL (0.0-0.5); Bilirubin Total 0.3 mg/dL (0.0-1.0); Blood Urea Nitrogen 27 mg/dL (9-16); Calcium 9.2 mg/dL (8.4-10.2); Carbon Dioxide 25 mmol/L (22-29); Chloride 107 mmol/L (96-108); Creatinine Clr Calc Pharmacy 47.4; Estimated Glomerular Filt Rate 56; Glucose Random 116 mg/dL (60-115); Magnesium 2.2 mg/dL (1.6-2.6); Potassium 4.4 mmol/L (3.3-5.1); Sodium 144 mmol/L (135-145); Total Protein 7.3 g/dL (6.5-8.0)
[2024-03-30 21:43] VITALS: BP 166/91; PULSE 100; RESP 18; TEMP 36.4; O2SAT 96
[2024-03-30 21:46] VITALS: BP 160/79; PULSE 70; RESP 18; TEMP 36.5; O2SAT 97
[2024-03-30 22:17] LABS: Erythrocyte Sedimentation Rate 7 MM/HR (0-20)
== END 2024-03-30 21:55 | disposition home or self-care (01) ==
PROVIDERS: Emergency Provider Emergency Medicine; PCP Internal Medicine Geriatric Medicine
DX: R21 Rash and other nonspecific skin eruption (principal); R60.0 Localized edema; I10 Essential (primary) hypertension; Z79.899 Other long term (current) drug therapy; Z79.01 Long term (current) use of anticoagulants
CPT/HCPCS: 36415; 80048; 80076; 83735; 85025; 85610; 85652; 93970; 99283; 99284

== ENCOUNTER 2024-04-10 10:33 | Outpatient (AMB) | payer OTHER, SELFPAY ==
[2024-04-10 10:35] VITALS: BP 126/80; PULSE 80; O2SAT 96; BMI 34.2
--- NOTE | 2024-04-10 10:35 | MHC.PC.OV ---
Vital Signs 04/10/24 10:35 Height 5 ft 1 in Weight 181 lb BMI 34.2 BP 126/80 Blood Pressure Location Lt brachial Position Sitting Pulse 80 Pulse Source Pulse Oximeter Pulse Oximetry (%) 96 Oxygen Delivery Method Room Air Intake Visit Reasons: EDF [facility] [place] 03/30 Leg pain/rash [employer] Required: No Accompanied by: Daughter Allergies Penicillins Allergy (Intermediate, Verified 04/10/24 10:46) Hives oxaprozin [From Daypro] Allergy (Unknown, Verified 04/10/24 10:46) RASH hydroxychloroquine Adverse Reaction (Intermediate, Verified 04/10/24 10:46) Abdominal Pain budesonide [Symbicort] Adverse Reaction (Unknown, Verified 04/10/24 10:46) nausea and vomiting Tobacco use date assessed: 01/01/24 Dental Screening Dental Screen Date: 09/10/23 HPI HPI Comments History of Present Illness Details 78 y/o female patient who presents to the clinic for EDF. She was admitted at [facility] [place] on 03/30 for non specific Rash lower extremities and discharged home the same day. Today Patient is accompanied by Daughter who helps with translation. Per Daughter, patient has been having pain on both heels associated with skin ulcers/wounds that open up with yellow drainage. This has been going on for 3 years now. She has been seen Derm, Rheumatology, General surgery, wound care and Vascular from different hospitals, but no resolution. Denies h/o T2DM or poor circulation. She has had 2 Angiogram procedures by Vascular surgery which were unremarkable. Today Pt c/o bilateral peripheral neuropathy, asking to be referred to Neurology. Per Chart review: 1. Rheumatology note on 02/2024; questioning Vascular insufficient and Venous Ulcers. Had skin Bx on 11/2023. MRI feet done 04/2023 showed Bone Spur left foot and plantar fasciitis. 2. Dermatology note 06/2023 (Dr. Sandoval); Statis Dermatitis and prescribed Steroid cream. 3. General Surgery who deferred to Rheumatology 4. Vascular surgery note 11/2023; Venous insufficiency along with non-pressure Ulcers. Prescribed Compression stockings and advised to elevate feet. [facility] Medical History Constipation Osteoporosis Allergic rhinitis Insomnia Osteoarthritis Obesity (BMI 30-39.9) Depression Anxiety Osteopenia Vitamin D deficiency GERD without esophagitis Asthma Paroxysmal atrial fibrillation Pure hypercholesterolemia Benign essential hypertension PAF (paroxysmal atrial fibrillation) Surgical History History of colonoscopy Family History Father CVD (cardiovascular disease) Stroke Mother Medical history unknown Social History Housing: Apartment Alcohol intake: never Patient Tobacco Use Status: Never used Tobacco e-Cigarette/Vaping Use: Never Used Second Hand Smoke Exposure: Yes service: No Current occupational status: disabled Cognitive needs: No Hearing needs: No Vision needs: Yes (glasses) Questionnaire Thrive Questionnaire Date Thrive assessed: 10/09/23 FARIDEH-7 AMB Questionnaire FARIDEH-7 Date FARIDEH - 7 assessed: 09/10/23 Source: Developed by Drs. Abisai Peñaloza, Celina Simeon, Ayad Briceno and colleagues, with an educational elif from [employer]. Physical exam (Primary Care) Vital Signs: Last Vital Signs Pulse 80 04/10/24 10:35 BP 126/80 04/10/24 10:35 Pulse Ox 96 04/10/24 10:35 Oxygen Delivery Method Room Air 04/10/24 10:35 BMI result Body Mass Index 34.2 Tobacco/Smoking Status: Tobacco use Status Tobacco use date assessed 01/01/24 04/10/24 10:37 Patient Tobacco Use Status Never used Tobacco 04/10/24 10:37 e-Cigarette/Vaping Use Never Used 04/10/24 10:37 Thrive Assessment: Date of Thrive Assessment Date Thrive assessed 10/09/23 04/10/24 10:37 Const Orientation/consciousness: patient oriented x3 Skin Other: Discolored bluish/purple spots dry and intact skin on lower extremities. Bilateral Heels tenderness to touch, dry cracked skin. Normal Pulses. Sensation intact. Wounds: no wounds Hair: general thinning Neuro General: patient oriented x3, gait normal and moves all extremities Extrem General: Yes full ROM, Yes capillary refill normal and No edema Psych Speech and movement: Normal speech and movement present Assessment and Plan Assessment & Plan (1) Varicose veins of right lower extremity with inflammation: Code(s): I83.11 - Varicose veins of right lower extremity with inflammation Plan: Managed by Vascular services. (2) Peripheral neuropathy: Code(s): G62.9 - Polyneuropathy, unspecified Qualifiers: Peripheral neuropathy type: idiopathic neuropathy, unspecified Qualified Code(s): G60.9 - Hereditary and idiopathic neuropathy, unspecified Plan: Referred to Neurology due to peripheral neuropathy. Orders: Referrals Neurology Referral G60.9 - Hereditary and idiopathic neuropathy, unspecified Coding Level of Care Code Est Pt Level 4 (81420) Diagnoses Varicose veins of right lower extremity with inflammation I83.11 Idiopathic peripheral neuropathy G60.9 Peripheral neuropathy type: idiopathic neuropathy, unspecified Time Spent (min) 20 Comment Spent reviewing hospital and chart notes.
== END 2024-04-10 13:15 | disposition home or self-care (01) ==
PROVIDERS: PCP Internal Medicine; Visit Provider Nurse Practitioner Family
DX: I83.11 Varicose veins of right lower extremity with inflammation (principal); G60.9 Hereditary and idiopathic neuropathy, unspecified

== ENCOUNTER → 2024-04-10 10:33 | Outpatient (BNVA) | payer OTHER, SELFPAY | PROVIDERS: PCP Internal Medicine; Visit Provider Nurse Practitioner Family | DX: I83.11 Varicose veins of right lower extremity with inflammation (principal); G60.9 Hereditary and idiopathic neuropathy, unspecified | CPT/HCPCS: 99212 ==

== ENCOUNTER 2024-04-29 09:29 | Outpatient (AMB) | payer OTHER, SELFPAY ==
[2024-04-29 09:36] VITALS: BP 122/86; PULSE 74; O2SAT 96; BMI 34.4
--- NOTE | 2024-04-29 09:36 | MHC.PC.OV ---
Vital Signs 04/29/24 09:36 Height 5 ft 1 in Weight 182 lb 2 oz BMI 34.4 BP 122/86 Blood Pressure Location Lt brachial Position Sitting Pulse 74 Pulse Source Pulse Oximeter Pulse Oximetry (%) 96 Oxygen Delivery Method Room Air Intake Visit Reasons: Med Management [employer] Phot[employer] Required: No Accompanied by: Daughter Allergies Penicillins Allergy (Intermediate, Verified 04/29/24 10:18) Hives oxaprozin [From Daypro] Allergy (Unknown, Verified 04/29/24 10:18) RASH hydroxychloroquine Adverse Reaction (Intermediate, Verified 04/29/24 10:18) Abdominal Pain budesonide [Symbicort] Adverse Reaction (Unknown, Verified 04/29/24 10:18) nausea and vomiting Medication List - Last Reconciled 05/03/24 by Milton Ackerman MD acetaminophen ER 650 mg PO Q8H PRN 30 days Advair HFA 115-21 mcg/actuation (fluticasone propion-salmeterol) 2 puffs inhalation BID NS albuterol sulfate 2.5 mg (3 mL) continuous nebulization QID PRN alclometasone 0.05% appl topical atorvastatin 80 mg PO BEDTIME 90 days calcium carbonate-vit D3-min 600 mg calcium- 200 unit 1 tab PO DAILY candesartan 32 mg PO DAILY cholecalciferol (vitamin D3) 25 mcg PO DAILY 90 days [disposable bed pads As directed 4 per day ] fluticasone propionate 110 mcg/actuation (Flovent HFA) 2 puffs inhalation BID 30 days folic acid 1 mg PO DAILY gabapentin 400 mg PO TID 30 days [gloves As directed] inhalational spacing device (Aerochamber MV spacer) As directed lactulose 20 grams (30 mL) PO DAILY PRN lidocaine 5% 1 appl topical TID PRN loratadine 10 mg PO DAILY PRN 90 days lubiprostone (Amitiza) 24 mcg PO BID mineral oil (Fleet Mineral Oil enema) 133 mL MA DAILY PRN mirtazapine 15 mg PO BEDTIME 90 days miscellaneous medical supply Power Lift Chair - As directed - to use indefinatly mupirocin 2% 1 appl topical TID mupirocin 2% 1 appl topical TID oxycodone 10 mg PO BEDTIME PRN polyethylene glycol 3350 (Miralax) 17 grams PO DAILY PRN sennosides (senna) 8.6 mg PO DAILY tramadol 50 mg PO BID PRN 30 days zolpidem 10 mg PO BEDTIME PRN 30 days Tobacco use date assessed: 04/29/24 Fall risk assessment: No Falls in past year Last assessed Fall Risk: 04/29/24 Dental Screening Dental Screen Date: 04/29/24 Did you have a dental visit in the last 12 months?: No Did you have a dental problem in the last 6 months where you did not have access to dental care?: No Was dental information given to patient?: No HPI Med Management HPI Details Patient comes in today for her follow-up visit She continues to break out in recurrent painful ulcers on both lower extremities Patient has responded to empiric treatment with oral prednisone in the past she states that more recently, the prednisone does not seem to be helpful as before She has undergone extensive workup with vascular surgery, dermatology and rheumatology, all of whom have advised patient that they have no definitive answer as to why she keeps breaking out in painful ulcers on her lower extremities She was referred to and recently seen by rheumatology at [facility] in [place] (Dr. Mary Pinto) for a second opinion She is being referred to vascular surgeons at [facility] for a 2nd opinion and in the meantime had been advised to speak with her PCP about trialing with gabapentin for possible neuropathic etiology of her ulcers Patient states that other than her painful lower extremity ulcers, she feels okay States that she will need her oxycodone and tramadol Rx refills She denies any headaches or dizziness Denies any chest pains, no increased shortness of breath No nausea/vomiting, no abdominal pain No change in bowel habits noted [facility] Medical History (Updated 05/03/24 @ 23:13 by Milton Ackerman MD) Constipation Osteoporosis Allergic rhinitis Insomnia Osteoarthritis Obesity (BMI 30-39.9) Depression Anxiety Vitamin D deficiency GERD without esophagitis Asthma Paroxysmal atrial fibrillation Pure hypercholesterolemia Benign essential hypertension PAF (paroxysmal atrial fibrillation) Surgical History History of colonoscopy Family History Father CVD (cardiovascular disease) Stroke Mother Medical history unknown Social History Housing: Apartment Alcohol intake: never Patient Tobacco Use Status: Never used Tobacco e-Cigarette/Vaping Use: Never Used Second Hand Smoke Exposure: Yes service: No Current occupational status: disabled Cognitive needs: No Hearing needs: No Vision needs: Yes (glasses) Questionnaire PHQ-9 Over the last 2 weeks, how often have you been bothered by any of the following problems? 1. Little interest or pleasure in doing things: not at all 2. Feeling down, depressed, or hopeless: several days 3. Trouble falling or staying asleep, or sleeping too much: more than half the days 4. Feeling tired or having little energy: nearly every day 5. Poor appetite or overeating: not at all 6. Feeling bad about yourself - or that you are a failure or have let yourself or your family down: not at all 7. Trouble concentrating on things, such as reading the newspaper or watching television: not at all 8. Moving or speaking so slowly that other people could have noticed. Or the opposite - being so fidgety or restless that you have been moving around a lot more than usual: several days 9. Thoughts that you would be better off or of hurting yourself in some way: not at all Total score: 7 Depression Screening Interpretation: Positive Depression Screening Follow-up: Existing condition and In treatment Depression Screening Done: Yes 64707 - PHQ-9 Billing: Yes Source: Developed by Drs. Abisai Peñaloza, Celina Simeon, Ayad Briceno and colleagues, with an educational elif from [employer]. Thrive Questionnaire Date Thrive assessed: 04/29/24 I am a: Patient What is your living situation today?: I have a steady place to live Within the past 12 months, did the food you bought not last and you didn't have the money to get more?: Never true Within the past 12 months, did you worry whether your food would run out before you got money to buy more?: Never true Do you have trouble paying for medicines?: No Do you have trouble getting transportation to medical appointments?: No Do you have trouble paying your heating and electricity bill?: No Do you have trouble taking care of your child, family member or friend?: No Do you have trouble with day-to-day activities such as bathing, preparing meals, shopping, managing finances, etc.?: No Are you currently unemployed and looking for a job?: No Are you interested in more education?: No Please select the resources that you would like help with: None Currently or been in a relationship where the following occur: No concerns reported THRIVE Score: 0 AUDIT C Alcohol Use Questionnaire (AUDIT-C) 1. How often do you have a drink containing alcohol?: Never 3. How often do you have six or more drinks on one occasion?: Never Total Score: 0 Score Reviewed/Action Taken: Yes FARIDEH-7 AMB Questionnaire FARIDEH-7 Date FARIDEH - 7 assessed: 04/29/24 Feeling nervous, anxious, or on edge: 0 = Not at all Not being able to stop or control worryin = Not at all Worrying too much about different things: 0 = Not at all Trouble relaxin = Not at all Being so restless that it is hard to sit still: 0 = Not at all Becoming easily annoyed or irritable: 0 = Not at all Feeling afraid as if something awful might happen: 0 = Not at all Total FARIDEH-7 score (0-4 normal; 5-9 mild; 10-14 moderate; 15-21 severe): 0 Source: Developed by Drs. Abisai Peñaloza, Celina Simeon, Ayad Briceno and colleagues, with an educational elif from [employer]. Review of Systems Const Denies chills, Reports difficulty sleeping (due to pain), Reports fatigue, Denies fever(s) and Denies headache(s) ENT Denies dysphagia, Denies dizziness, Denies otalgia, Denies headache(s), Denies neck pain, Denies odynophagia and Denies sore throat Card Denies chest pain, Denies palpitations and Denies dyspnea Resp Denies chest congestion, Denies cough, Denies dyspnea and Denies wheezing GI Details: (+) painful hemorrhoids often Denies abdominal pain, Reports constipation (on and off), Denies dysphagia, Denies heartburn, Denies diarrhea, Denies nausea, Denies odynophagia and Denies vomiting Denies difficulty voiding, Denies nocturia, Denies dysuria, Reports urinary incontinence (mostly urge incontinence, especially at night) and Denies urinary urgency Musc Denies back pain, Reports arthralgias (involving multiple joints, especially in her knees) and Denies neck pain Skin/Breast Reports as per HPI, Denies rash and Reports skin ulcer ((+) multiple painful sores/ulcers on both lower legs distally and on ankles) Neuro Denies dizziness and Denies headache(s) Endo Reports fatigue and Denies palpitations Aller/Immun Denies wheezing Physical exam (Primary Care) Vital Signs: Last Vital Signs Pulse 74 04/29/24 09:36 BP 122/86 04/29/24 09:36 Pulse Ox 96 04/29/24 09:36 Oxygen Delivery Method Room Air 04/29/24 09:36 BMI result Body Mass Index 34.4 Tobacco/Smoking Status: Tobacco use Status Tobacco use date assessed 04/29/24 04/29/24 09:41 Patient Tobacco Use Status Never used Tobacco 04/29/24 09:41 e-Cigarette/Vaping Use Never Used 04/29/24 09:41 PHQ-9: PHQ-9 Score PHQ-9: Total score 7 04/29/24 10:20 Depression Screening Interpretation: Positive Depression Screening Follow-up: Existing condition and In treatment Thrive Assessment: Date of Thrive Assessment Date Thrive assessed 04/29/24 04/29/24 09:41 Currently or been in a relationship where the following occur: No concerns reported Const General: no acute distress and alert HENMT Ears: TM's normal bilaterally and EAC's normal Throat: Yes posterior oropharynx normal and Yes tonsils normal (no TP congestion) Neck Neck: Yes no lymphadenopathy and Yes supple Thyroid: Thyroid normal Resp Auscultation: clear to auscultation bilaterally, no rales and no rhonchi Cardio Rate: regular rate Rhythm: regular rhythm Heart sounds: no murmurs GI Palpation (GI): Soft to palpation and nontender Auscultation: normal bowel sounds General: Yes no CVA tenderness Back/Spine/Pelvis Back: no CVA tenderness Thoracic/Lumbar Spine: No lumbar spinal tenderness Skin Other: (+) multiple, painful, non-draining, ulcers/sores over the distal half of both lower legs Extrem General: Yes no clubbing, cyanosis or edema Office Procedures Flu Questionnaire Does the patient have a severe egg allergy?: No Immunizations Fluarix Triv [id number] (PF) 45 mcg (15 mcg x 3)/0.5 mL IM syringe Performing Provider: Milton Ackerman MD [place] [facility] [place] [facility] Documented (not given) by: ALICIA Jacobson on 04/29/24 09:42 Reason Not Given: Patient Refused Coding Level of Care Code Est Pt Level 4 (91130) Diagnoses Ulcers of both lower extremities, unspecified ulcer stage L97.919; L97.929 Non-pressure ulcer stage: unspecified non-pressure ulcer stage Pure hypercholesterolemia E78.00 Benign essential hypertension I10 Paroxysmal atrial fibrillation I48.0 Moderate persistent asthma without complication J45.40 Asthma severity: moderate Asthma persistence: persistent Asthma complication type: uncomplicated Seasonal allergic rhinitis due to pollen J30.1 Allergic rhinitis trigger: pollen Allergic rhinitis seasonality: seasonal GERD without esophagitis K21.9 Vitamin D deficiency E55.9 Osteoporosis without current pathological fracture, unspecified osteoporosis type M81.0 Osteoporosis type: unspecified Presence of current pathological fracture: without current pathological fracture Constipation, unspecified constipation type K59.00 Constipation type: unspecified constipation type Primary osteoarthritis of right knee M17.11 Osteoarthritis location: knee Osteoarthritis type: primary Laterality: right Insomnia, unspecified type G47.00 Insomnia type: unspecified Anxiety F41.9 Episode of recurrent major depressive disorder, unspecified depression episode severity F33.9 Depression Type: major depressive disorder Major depression recurrence: recurrent Active/Remission status: currently active Major depression episode severity: unspecified Obesity (BMI 30-39.9) E66.9 Assessment & Plan Assessment & Plan (1) Ulcers of both lower extremities: Code(s): L97.919 - Non-pressure chronic ulcer of unspecified part of right lower leg with unspecified severity; L97.929 - Non-pressure chronic ulcer of unspecified part of left lower leg with unspecified severity Category: Medical Qualifiers: Non-pressure ulcer stage: unspecified non-pressure ulcer stage Qualified Code(s): L97.919 - Non-pressure chronic ulcer of unspecified part of right lower leg with unspecified severity; L97.929 - Non-pressure chronic ulcer of unspecified part of left lower leg with unspecified severity Plan: Patient continues to follow up with the [facility] regularly for management of her lower extremity ulcers She has been seen by vascular surgery at [place] in the past and was advised that her ulcers are non-vascular in origin Previous workups, including arterial duplex, venous doppler, angiogram and CTA of the aorta, have all come back normal She was [place] [facility] [place] and venous insufficiency testing done were all negative as well Her painful ulcers have responded to empiric Tx with oral prednisone in the past so there is a likely possibility that her ulcers have an autoimmune or vasculitic component although vasculitis work ups done by rheumatology in the past were all negative except for a borderline positive dsDNA She was also referred to dermatology for consideration for skin biopsy and was seen by Dr. Sandoval in June 2023 but he seems to think that these are stasis ulcers and did not warrant further investigation; they apparently also have reservations about doing a skin biopsy which may create a new open wound that may be troublesome to heal She recently had a skin biopsy done by the wound clinic a few months ago and her specimens were sent out to [facility] for immunofluorescence studies - there is no report available on these yet at this time Per her request, she was referred to rheumatology at [facility] for a second opinion and she was seen by Dr. Mary Pinto on 03/11/2024 She is being referred to vascular surgery at [facility] for further evaluation/second opinion and was also advised to consider trialing with Gabapentin through her PCP as well as looking into possible neuropathic etiology for her ulcers Per request, will provide her again with Rx for #7 tablets of Oxycodone 10 mg to take at bedtime ONLY as needed for severe pain and Her Tramadol Rx have also been refilled Will go ahead and increase her Gabapentin today from 300 mg BID to 400 mg TID and provide her with Rx for Mupirocin 2% ointment to apply her ulcers TID Will send her for EMG and NCV for further evaluation Will also refer her to neurology for further evaluation and management (2) Pure hypercholesterolemia: Code(s): E78.00 - Pure hypercholesterolemia, unspecified Category: Medical Plan: Reinforced low cholesterol diet Continue Atorvastatin 80 mg QD Have reminded patient to get her follow up labs and fasting lipids done next month before her upcoming appt (3) Benign essential hypertension: Code(s): I10 - Essential (primary) hypertension Category: Medical Plan: Reinforced low-sodium diet - goal is systolic BP of at least 140 mm or less Continue Candesartan 32 mg QD; HCTZ was previously discontinued (4) Paroxysmal atrial fibrillation: Code(s): I48.0 - Paroxysmal atrial fibrillation Category: Medical Plan: Patient was in sinus rhythm at her last in-person visit and currently remains asymptomatic from a cardiac standpoint Follow up with Cardiology as scheduled (5) Asthma: Code(s): J45.909 - Unspecified asthma, uncomplicated Category: Medical Qualifiers: Asthma severity: moderate Asthma persistence: persistent Asthma complication type: uncomplicated Qualified Code(s): J45.40 - Moderate persistent asthma, uncomplicated Plan: Continue Advair HFA 115-21 mcg 2 inhalations BID and Albuterol HFA 1 to 2 inhalations Q 6 hours PRN States that she uses her nebulizer only when needed (6) Allergic rhinitis: Code(s): J30.9 - Allergic rhinitis, unspecified Category: Medical Qualifiers: Allergic rhinitis trigger: pollen Allergic rhinitis seasonality: seasonal Qualified Code(s): J30.1 - Allergic rhinitis due to pollen Plan: Continue Loratadine 10 mg QD PRN (7) GERD without esophagitis: Code(s): K21.9 - Gastro-esophageal reflux disease without esophagitis Category: Medical Plan: Dietary restrictions reinforced Continue Omeprazole 40 mg QD (8) Vitamin D deficiency: Code(s): E55.9 - Vitamin D deficiency, unspecified Category: Medical Plan: Continue Vitamin D3 1000 units QD (9) Osteoporosis: Code(s): M81.0 - Age-related osteoporosis without current pathological fracture Category: Medical Qualifiers: Osteoporosis type: unspecified Presence of current pathological fracture: without current pathological fracture Qualified Code(s): M81.0 - Age-related osteoporosis without current pathological fracture Plan: Repeat BMD done in July 2022 revealed that patient's BMD has declined significantly from her previous scan in July 2017, especially in the left femur, which has a 23.2% decrease from previous Her A/P spine BMD is mostly unchanged and her lowest T-score is now at -3.2 in the femoral neck Patient has been on Alendronate 70 mg Q week for years (unclear when she actually started taking it but most likely > 5 years) and we have instructed patient at her last follow up appointment to finish up her current supply of Alendronate, then D/C the Rx so she is now OFF ALENDRONATE Will also consider having her see endocrinology for this once her current issues with her lower extremity ulcers are under better control (10) Constipation: Code(s): K59.00 - Constipation, unspecified Category: Medical Qualifiers: Constipation type: unspecified constipation type Qualified Code(s): K59.00 - Constipation, unspecified Plan: Reinforced increased oral fluids and dietary fiber Continue Amitiza 24 mcg BID (11) Osteoarthritis: Code(s): M19.90 - Unspecified osteoarthritis, unspecified site Category: Medical Qualifiers: Osteoarthritis location: knee Osteoarthritis type: primary Laterality: right Qualified Code(s): M17.11 - Unilateral primary osteoarthritis, right knee Plan: Mostly involving her right knee -? she has received cortisone injection from Orthopedics in the past without any significant relief Have advised her again that physical therapy can help with her knee pain if her symptoms get worse -? patient does not want to pursue this for now, especially with her recurrent painful ulcers ongoing currently Continue Tramadol 50 mg TID PRN ; her Gabapentin dose will be increased today - patient requested to have dose reduced at her last visit Follow-up with Orthopedics as scheduled or as needed (12) Insomnia: Code(s): G47.00 - Insomnia, unspecified Category: Medical Qualifiers: Insomnia type: unspecified Qualified Code(s): G47.00 - Insomnia, unspecified Plan: Sleep hygiene reinforced Continue Zolpidem 10 mg Q HS PRN (13) Anxiety: Code(s): F41.9 - Anxiety disorder, unspecified Category: Medical Plan: Continue Lorazepam 0.5 mg 2 to 3 times a day as needed Mirtazapine also appears to be helping (14) Depression: Code(s): F32.9 - Major depressive disorder, single episode, unspecified Category: Medical Qualifiers: Depression Type: major depressive disorder Major depression recurrence: recurrent Active/Remission status: currently active Major depression episode severity: unspecified Qualified Code(s): F33.9 - Major depressive disorder, recurrent, unspecified Plan: Continue Mirtazapine 15 mg Q HS (15) Obesity (BMI 30-39.9): Code(s): E66.9 - Obesity, unspecified Category: Medical Plan: Reinforced diet; exercise and weight loss are unrealistic given patient's current ongoing issues and multiple comorbidities Plan Follow up as scheduled in May 2024 Orders: Orders Influenza [id number] Immunization 04/29/24 Z23 - Encounter for immunization NE electromyogram (EMG) 04/29/24 I83.009 - Varicose veins of unspecified lower extremity with ulcer of unspecified site, M79.604 - Pain in right leg, M79.605 - Pain in left leg NE nerve conduction velocity 04/29/24 I83.009 - Varicose veins of unspecified lower extremity with ulcer of unspecified site, M79.604 - Pain in right leg, M79.605 - Pain in left leg Referrals Neurology Referral L97.919 - Non-pressure chronic ulcer of unspecified part of right lower leg with unspecified severity, L97.929 - Non-pressure chronic ulcer of unspecified part of left lower leg with unspecified severity, M79.604 - Pain in right leg, M79.605 - Pain in left leg Medications: New mupirocin 2% 1 appl topical TID 50 grams 0RF lower extremity ulcers Changed From gabapentin 300 mg PO BID 60 caps 0RF To gabapentin 400 mg PO TID 30 days 90 caps 1RF neuropathy Refilled oxycodone Partial Fill upon patient request. 10 mg PO BEDTIME PRN 7 tabs 0RF severe pain tramadol 50 mg PO BID 30 days PRN 60 tabs 0RF pain M19.90 - Unspecified osteoarthritis, unspecified site
== END 2024-04-29 10:26 | disposition home or self-care (01) ==
PROVIDERS: PCP Internal Medicine; Visit Provider Internal Medicine
DX: I48.0 Paroxysmal atrial fibrillation (principal); L97.919 Non-pressure chronic ulcer of unspecified part of right lower leg with unspecified severity; L97.929 Non-pressure chronic ulcer of unspecified part of left lower leg with unspecified severity; F33.9 Major depressive disorder, recurrent, unspecified; E78.00 Pure hypercholesterolemia, unspecified; I10 Essential (primary) hypertension; J45.40 Moderate persistent asthma, uncomplicated; J30.1 Allergic rhinitis due to pollen; K21.9 Gastro-esophageal reflux disease without esophagitis; E55.9 Vitamin D deficiency, unspecified; M81.0 Age-related osteoporosis without current pathological fracture; K59.00 Constipation, unspecified

== ENCOUNTER → 2024-04-29 09:29 | Outpatient (BNVA) | payer OTHER, SELFPAY | PROVIDERS: PCP Internal Medicine; Visit Provider Internal Medicine | DX: L97.919 Non-pressure chronic ulcer of unspecified part of right lower leg with unspecified severity (principal); L97.929 Non-pressure chronic ulcer of unspecified part of left lower leg with unspecified severity; E78.00 Pure hypercholesterolemia, unspecified; I10 Essential (primary) hypertension; I48.0 Paroxysmal atrial fibrillation; J45.40 Moderate persistent asthma, uncomplicated; J30.1 Allergic rhinitis due to pollen; K21.9 Gastro-esophageal reflux disease without esophagitis; E55.9 Vitamin D deficiency, unspecified; M81.0 Age-related osteoporosis without current pathological fracture; K59.00 Constipation, unspecified; M17.11 Unilateral primary osteoarthritis, right knee; G47.00 Insomnia, unspecified; F41.9 Anxiety disorder, unspecified; F33.9 Major depressive disorder, recurrent, unspecified; E66.9 Obesity, unspecified; Z68.34 Body mass index [BMI] 34.0-34.9, adult; Z71.3 Dietary counseling and surveillance | CPT/HCPCS: 90471; 96127; 99212 ==

== ENCOUNTER 2024-05-11 13:58 | Outpatient (AMB) | payer OTHER, SELFPAY ==
--- NOTE | 2024-05-11 14:07 | A.OFFVIS_ITS ---
Vital Signs 05/11/24 14:12 Height 5 ft 1 in Weight 185 lb 6.54 oz BMI 35.0 BP 122/70 Blood Pressure Location Rt brachial Position Sitting Pulse 76 Pulse Source Pulse Oximeter Pulse Oximetry (%) 96 Oxygen Delivery Method Room Air Intake Visit Reasons: joint pain/CM Intake Note: Patient presents for joint pain. Shift Lab Technician Required: Yes Shift Lab Technician Language: Food Service Steward Services: Shift Lab Technician Offered & Declined Shift Lab Technician Name: Diann Montenegro Information Interpreted: non-clinical & clinical Motion Picture Equipment Machinist: Motion Picture Equipment Machinist Present Accompanied by: Daughter Allergies Penicillins Allergy (Intermediate, Verified 05/11/24 14:12) Hives oxaprozin [From Daypro] Allergy (Unknown, Verified 05/11/24 14:12) RASH hydroxychloroquine Adverse Reaction (Intermediate, Verified 05/11/24 14:12) Abdominal Pain budesonide [Symbicort] Adverse Reaction (Unknown, Verified 05/11/24 14:12) nausea and vomiting Medication List - Last Reconciled 05/11/24 by Fausto Bowens MD acetaminophen ER 650 mg PO Q8H PRN 30 days Advair HFA 115-21 mcg/actuation (fluticasone propion-salmeterol) 2 puffs inhalation BID NS albuterol sulfate 2.5 mg (3 mL) continuous nebulization QID PRN alclometasone 0.05% appl topical atorvastatin 80 mg PO BEDTIME 90 days calcium carbonate-vit D3-min 600 mg calcium- 200 unit 1 tab PO DAILY candesartan 32 mg PO DAILY cholecalciferol (vitamin D3) 25 mcg PO DAILY 90 days [disposable bed pads As directed 4 per day ] fluticasone propionate 110 mcg/actuation (Flovent HFA) 2 puffs inhalation BID 30 days folic acid 1 mg PO DAILY gabapentin 400 mg PO TID 30 days [gloves As directed] inhalational spacing device (Aerochamber MV spacer) As directed lactulose 20 grams (30 mL) PO DAILY PRN lidocaine 5% 1 appl topical TID PRN loratadine 10 mg PO DAILY PRN 90 days lubiprostone (Amitiza) 24 mcg PO BID mineral oil (Fleet Mineral Oil enema) 133 mL [place] DAILY PRN mirtazapine 15 mg PO BEDTIME 90 days miscellaneous medical supply Power Lift Chair - As directed - to use indefinatly mupirocin 2% 1 appl topical TID mupirocin 2% 1 appl topical TID oxycodone 10 mg PO BEDTIME PRN polyethylene glycol 3350 (Miralax) 17 grams PO DAILY PRN sennosides (senna) 8.6 mg PO DAILY tramadol 50 mg PO BID PRN 30 days zolpidem 10 mg PO BEDTIME PRN 30 days HPI Comments Details: Patient returns for evaluation of joint pain. She states that for the last 1-2 weeks she has been having pain in her left lower back, left buttock and the outer aspect of her left hip. She also has similar pain on the right side but it is more prominent on the left. Her daughter mentions that her leg ulcers have closed up and patient has been more active recently. [facility] Medical History (Updated 05/11/24 @ 14:29 by Fausto Bowens MD) Constipation Osteoporosis Allergic rhinitis Insomnia Osteoarthritis Obesity (BMI 30-39.9) Depression Anxiety Vitamin D deficiency GERD without esophagitis Asthma Paroxysmal atrial fibrillation Pure hypercholesterolemia Benign essential hypertension PAF (paroxysmal atrial fibrillation) Surgical History History of colonoscopy Family History Father CVD (cardiovascular disease) Stroke Mother Medical history unknown Social History Housing: Apartment Alcohol intake: never Patient Tobacco Use Status: Never used Tobacco e-Cigarette/Vaping Use: Never Used Second Hand Smoke Exposure: Yes service: No Current occupational status: disabled Cognitive needs: No Hearing needs: No Vision needs: Yes (glasses) Review of Systems [facility] [place] Reports arthralgias and Reports radiating pain into limb Skin/Breast Denies non-healing lesions and Denies wounds Physical Exam Vital Signs: Last Vital Signs Pulse 76 05/11/24 14:12 BP 122/70 05/11/24 14:12 Pulse Ox 96 05/11/24 14:12 Oxygen Delivery Method Room Air 05/11/24 14:12 BMI result Body Mass Index 35.0 Const General: cooperative, healthy appearing and comfortable Nutritional Appearance: obese Orientation/consciousness: patient oriented x3 Limitations: no limitations HEENT Head: Yes normocephalic and Yes atraumatic Resp Effort & Inspection: normal respiratory effort and able to speak in complete sentences GI Inspection: No distended Palpation (GI): Soft to palpation Skin Other: Signs of chronic venous stasis both legs No open wounds today Neuro General: patient oriented x3 Extrem Other: . Osteoarthritic changes of both hands Normal nailfold capillaroscopy Left trochanteric bursa area tenderness with negative Vel's test Negative straight leg raise test bilaterally left knee crepitus Assessment & Plan Assessment & Plan (1) Greater trochanteric pain syndrome of both lower extremities: Code(s): M25.551 - Pain in right hip; M25.552 - Pain in left hip Category: Medical Plan: Patient presenting with bilateral eye pain, more prominent on the left side, consistent with trochanteric bursitis. I provided patient with a printout of home exercises. If no improvement in 3-4 weeks, patient will call the office f or an injection Plan I spent 12_ minutes reviewing patient's chart, evaluating patient, counseling patient and documenting in the chart Coding Level of Care Code Est Pt Level 3 (01441) Diagnoses Greater trochanteric pain syndrome of both lower extremities M25.551; M25.552
[2024-05-11 14:12] VITALS: BP 122/70; PULSE 76; O2SAT 96; BMI 35.0
== END 2024-05-11 14:41 | disposition home or self-care (01) ==
LOC: HO.RHE 13:58
PROVIDERS: PCP Internal Medicine; Visit Provider Student in an Organized Health Care Education/Training Program
DX: M25.551 Pain in right hip (principal); M25.552 Pain in left hip
CPT/HCPCS: 99213

== ENCOUNTER → 2024-05-11 13:58 | Outpatient (BNVA) | payer OTHER, SELFPAY | PROVIDERS: PCP Internal Medicine; Visit Provider Student in an Organized Health Care Education/Training Program | DX: M25.50 Pain in unspecified joint (principal); M54.50 Low back pain, unspecified; M25.551 Pain in right hip; M25.552 Pain in left hip | CPT/HCPCS: 99212 ==

== ENCOUNTER 2024-05-26 09:16 | Outpatient (REF) | payer OTHER, SELFPAY ==
--- NOTE | 2024-05-26 09:45 | EMG_ITS ---
Bilateral tibial and peroneal motor studies were performed. Bilateral superficial peroneal and sural sensory studies were performed. Tibial H reflexes were obtained, and paraspinal muscles were tested with a needle. IMPRESSION: Mild to moderate axonal sensory motor peripheral neuropathy. MD TAYLOR Sparks/BRIGITTE / [id number]
[2024-05-26 09:49] LABS: MANUAL DIFF FLAG NO
[2024-05-26 10:25] LABS: Basophils Percent Auto 0.4 % (0-2); Eosinophils Absolute Auto 0.1 X10*3/uL (0.0-0.4); Eosinophils Percent Auto 1.9 % (0-4); Hematocrit 40.8 % (37.0-47.0); Hemoglobin 12.9 g/dl (12.0-16.0); Imm Gran Abs Auto 0.03 X10*3/uL (0.00-0.03); Imm Gran Pct Auto 0.4 % (0.0-0.4); Lymphocytes Absolute Auto 1.8 X10*3/uL (1.2-4.9); Lymphocytes Percent Auto 26.2 % (20-40); Mean Corpuscular HGB Conc 31.6 g/dl (31.0-35.0); Mean Corpuscular Hemoglobin 28.2 pg (27.0-33.0); Mean Corpuscular Volume 89.1 fL (80.0-98.0); Mean Platelet Volume 11.2 fL (9.4-12.3); Monocytes Absolute Auto 0.5 X10*3/uL (0.1-1.2); Monocytes Percent Auto 7.8 % (2-11); Neutrophils Absolute Auto 4.3 x10*3/uL (2.0-8.3); Neutrophils Percent Auto 63.3 % (45-73); Platelet Count 434 X10*3/uL (160-400); Red Blood Count 4.58 X10*6/uL (4.20-5.50); Red Cell Distribution Width 14.3 % (11.0-16.0); White Blood Count 6.8 X10*3/uL (4.8-10.8)
[2024-05-26 10:55] LABS: Appearance Urine Clear; Color Urine Yellow; Glucose Urine UA Negative (Negative); Leukocyte Esterase Urine Trace (Negative); Nitrite Urine Negative (Negative); PH 5.5 (5.0-9.0); Specific Gravity - Urine 1.015 (1.005-1.025); UMIC TRIGGER UACC YES; Urine Blood Trace (Negative); Urine Ketones Negative (Negative); Urine Protein Negative (Neg-Trace)
[2024-05-26 11:01] LABS: Bacteria Urine None Seen (None Seen); Hyaline Casts Urine 0-2 /LPF (0-2); RBC Urine 0-2 /HPF (0-2); Squamous Epithelial Cell Urine 0-2 /HPF (0-2); WBC Urine 0-5 /HPF (0-5)
[2024-05-26 11:08] LABS: Erythrocyte Sedimentation Rate 12 MM/HR (0-20)
[2024-05-26 11:25] LABS: Alanine Aminotransferase 14 U/L (0-31); Alkaline Phosphatase 88 U/L (39-117); Anion Gap 14 (12-20); Aspartate Amino Transferase 29 U/L (5-31); Bilirubin Total 0.6 mg/dL (0.0-1.0); Blood Urea Nitrogen 13 mg/dL (9-16); C Reactive Protein 0.46 mg/dL (< or = 0.50); Calcium 9.6 mg/dL (8.4-10.2); Carbon Dioxide 30 mmol/L (22-29); Chloride 101 mmol/L (96-108); Cholesterol 153 mg/dL (<200); Estimated Glomerular Filt Rate > 60; Glucose Fasting 95 mg/dL (60-99); HDL Cholesterol 44 mg/dL (>40); LDL Cholesterol Calculated 78 mg/dL (<100); Potassium 4.6 mmol/L (3.3-5.1); Sodium 140 mmol/L (135-145); Total Protein 6.5 g/dL (6.5-8.0); Triglycerides 158 mg/dL (<150)
[2024-05-26 11:34] LABS: TSH reflex Free T4 4.42 uIU/mL (0.32-4.0); Vitamin D 25-OH Total 19.4 ng/mL (>30)
[2024-05-26 11:47] LABS: Folate 12.3 ng/mL (> or = 4.0); Vitamin B12 407 pg/mL (200-900)
[2024-05-26 12:27] LABS: Free T4 (Free Thyroxine) 1.05 ng/dL (0.71-1.85)
== END 2024-05-26 09:17 | disposition home or self-care (01) ==
LOC: HO.NEURO 09:16
PROVIDERS: PCP Internal Medicine; Visit Provider Internal Medicine
DX: M79.604 Pain in right leg (principal); M79.605 Pain in left leg; E78.00 Pure hypercholesterolemia, unspecified; L97.919 Non-pressure chronic ulcer of unspecified part of right lower leg with unspecified severity; L97.929 Non-pressure chronic ulcer of unspecified part of left lower leg with unspecified severity; D64.9 Anemia, unspecified; E53.8 Deficiency of other specified B group vitamins; E55.9 Vitamin D deficiency, unspecified
CPT/HCPCS: 36415; 80053; 80061; 81001; 82306; 82607; 82746; 84439; 84443; 85025; 85652; 86140; 95886; 95911

== ENCOUNTER 2024-06-01 09:36 | Outpatient (AMB) | payer OTHER, SELFPAY ==
[2024-06-01 09:44] VITALS: BP 120/82; PULSE 68; O2SAT 95; BMI 34.4
--- NOTE | 2024-06-01 09:44 | MHC.PC.OV ---
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: No Accompanied by: Self / Same As Patient Allergies Penicillins Allergy (Intermediate, Verified 06/01/24 10:20) Hives oxaprozin [From Daypro] Allergy (Unknown, Verified 06/01/24 10:20) RASH hydroxychloroquine Adverse Reaction (Intermediate, Verified 06/01/24 10:20) Abdominal Pain budesonide [Symbicort] Adverse Reaction (Unknown, Verified 06/01/24 10:20) nausea and vomiting Medication List - Last Reconciled 06/01/24 by Milton Ackerman MD acetaminophen ER 650 mg PO Q8H PRN 30 days Advair HFA 115-21 mcg/actuation (fluticasone propion-salmeterol) 2 puffs inhalation BID NS albuterol sulfate 2.5 mg (3 mL) continuous nebulization QID PRN alclometasone 0.05% appl topical atorvastatin 80 mg PO BEDTIME 90 days calcium carbonate-vit D3-min 600 mg calcium- 200 unit 1 tab PO DAILY candesartan 32 mg PO DAILY cholecalciferol (vitamin D3) 25 mcg PO DAILY 90 days [disposable bed pads As directed 4 per day ] fluticasone propionate 110 mcg/actuation (Flovent HFA) 2 puffs inhalation BID 30 days folic acid 1 mg PO DAILY gabapentin 400 mg PO TID 30 days [gloves As directed] inhalational spacing device (Aerochamber MV spacer) As directed lactulose 20 grams (30 mL) PO DAILY PRN lidocaine 5% 1 appl topical TID PRN loratadine 10 mg PO DAILY PRN 90 days lubiprostone (Amitiza) 24 mcg PO BID mineral oil (Fleet Mineral Oil enema) 133 mL [place] DAILY PRN mirtazapine 15 mg PO BEDTIME 90 days miscellaneous medical supply Power Lift Chair - As directed - to use indefinatly mupirocin 2% 1 appl topical TID mupirocin 2% 1 appl topical TID oxycodone 10 mg PO BEDTIME PRN polyethylene glycol 3350 (Miralax) 17 grams PO DAILY PRN sennosides (senna) 8.6 mg PO DAILY tramadol 50 mg PO BID PRN 30 days zolpidem 10 mg PO BEDTIME PRN 30 days Tobacco use date assessed: 06/01/24 Fall risk assessment: No Falls in past year Last assessed Fall Risk: 06/01/24 Dental Screening Dental Screen Date: 06/01/24 Did you have a dental visit in the last 12 months?: No Did you have a dental problem in the last 6 months where you did not have access to dental care?: No Was dental information given to patient?: No HPI 3 Month fu HPI Details Patient comes in today for her follow up visit She has been breaking out repeatedly in painful ulcers on her lower extremities over the past several months but they seem to have finally calmed down somewhat currently States that she just had some nerve test done on her legs a couple of days ago and would like to know how her test came out Would like to know if there is anything she can take that would work better for her ongoing / chronic leg symptoms She is currently on Gabapentin but only takes it at bedtime as it makes her feel very tired when she takes it during the day States that the one that seems to help her the best is Hydrocodone She also reports increasing constipation lately and that her current Rx are not helping much States that she often feels bloated and sometimes has cramping abdominal pains if she has not had a bowel movement in more than a few days She denies any headaches or dizziness Denies any chest pains, no increased SOB She has had no nausea/vomiting lately She had her follow up labs done last week - to discuss her results [facility] Medical History Constipation Osteoporosis Allergic rhinitis Insomnia Osteoarthritis Obesity (BMI 30-39.9) Depression Anxiety Vitamin D deficiency GERD without esophagitis Asthma Paroxysmal atrial fibrillation Pure hypercholesterolemia Benign essential hypertension PAF (paroxysmal atrial fibrillation) Surgical History History of colonoscopy Family History Father CVD (cardiovascular disease) Stroke Mother Medical history unknown Social History Housing: Apartment Alcohol intake: never Patient Tobacco Use Status: Never used Tobacco e-Cigarette/Vaping Use: Never Used Second Hand Smoke Exposure: Yes service: No Current occupational status: disabled Cognitive needs: No Hearing needs: No Vision needs: Yes (glasses) Questionnaire PHQ-9 Over the last 2 weeks, how often have you been bothered by any of the following problems? 1. Little interest or pleasure in doing things: not at all 2. Feeling down, depressed, or hopeless: several days 3. Trouble falling or staying asleep, or sleeping too much: more than half the days 4. Feeling tired or having little energy: nearly every day 5. Poor appetite or overeating: not at all 6. Feeling bad about yourself - or that you are a failure or have let yourself or your family down: not at all 7. Trouble concentrating on things, such as reading the newspaper or watching television: not at all 8. Moving or speaking so slowly that other people could have noticed. Or the opposite - being so fidgety or restless that you have been moving around a lot more than usual: several days 9. Thoughts that you would be better off or of hurting yourself in some way: not at all Total score: 7 Depression Screening Interpretation: Positive Depression Screening Follow-up: Existing condition and In treatment Depression Screening Done: Yes 04456 - PHQ-9 Billing: Yes Source: Developed by Drs. Abisai Peñaloza, Celina Simeon, Ayad Briceno and colleagues, with an educational elif from [employer]. Thrive Questionnaire Date Thrive assessed: 06/01/24 I am a: Patient What is your living situation today?: I have a steady place to live Within the past 12 months, did the food you bought not last and you didn't have the money to get more?: Never true Within the past 12 months, did you worry whether your food would run out before you got money to buy more?: Never true Do you have trouble paying for medicines?: No Do you have trouble getting transportation to medical appointments?: No Do you have trouble paying your heating and electricity bill?: No Do you have trouble taking care of your child, family member or friend?: No Do you have trouble with day-to-day activities such as bathing, preparing meals, shopping, managing finances, etc.?: No Are you currently unemployed and looking for a job?: No Are you interested in more education?: No Please select the resources that you would like help with: None Currently or been in a relationship where the following occur: No concerns reported THRIVE Score: 0 AUDIT C Alcohol Use Questionnaire (AUDIT-C) 1. How often do you have a drink containing alcohol?: Never 3. How often do you have six or more drinks on one occasion?: Never Total Score: 0 Score Reviewed/Action Taken: Yes FARIDEH-7 AMB Questionnaire FARIDEH-7 Date FARIDEH - 7 assessed: 06/01/24 Feeling nervous, anxious, or on edge: 0 = Not at all Not being able to stop or control worryin = Not at all Worrying too much about different things: 0 = Not at all Trouble relaxin = Not at all Being so restless that it is hard to sit still: 0 = Not at all Becoming easily annoyed or irritable: 0 = Not at all Feeling afraid as if something awful might happen: 0 = Not at all Total FARIDEH-7 score (0-4 normal; 5-9 mild; 10-14 moderate; 15-21 severe): 0 Source: Developed by Drs. Abisai Peñaloza, Celina Simeon, Ayad Briceno and colleagues, with an educational elif from [employer]. Review of Systems Const Denies chills, Reports difficulty sleeping (due to pain), Reports fatigue, Denies fever(s) and Denies headache(s) ENT Denies dysphagia, Denies dizziness, Denies otalgia, Denies headache(s), Denies neck pain, Denies odynophagia and Denies sore throat Card Denies chest pain, Denies palpitations and Denies dyspnea Resp Denies chest congestion, Denies cough and Denies dyspnea GI Details: (+) painful hemorrhoids often Denies abdominal pain, Reports constipation (increasing lately), Denies dysphagia, Denies heartburn, Denies diarrhea, Denies nausea, Denies odynophagia and Denies vomiting Denies difficulty voiding, Denies nocturia, Denies dysuria, Reports urinary incontinence (mostly urge incontinence, especially at night) and Denies urinary urgency Musc Denies back pain, Reports arthralgias (involving multiple joints, especially in both knees) and Denies neck pain Skin/Breast Denies rash and Reports skin ulcer ((+) multiple painful sores/ulcers on both lower legs distally and on ankles) Neuro Denies dizziness and Denies headache(s) Endo Reports fatigue and Denies palpitations Physical exam (Primary Care) Vital Signs: Last Vital Signs Pulse 68 06/01/24 09:44 BP 120/82 06/01/24 09:44 Pulse Ox 95 06/01/24 09:44 Oxygen Delivery Method Room Air 06/01/24 09:44 BMI result Body Mass Index 34.4 Tobacco/Smoking Status: Tobacco use Status Tobacco use date assessed 06/01/24 06/01/24 09:48 Patient Tobacco Use Status Never used Tobacco 06/01/24 09:48 e-Cigarette/Vaping Use Never Used 06/01/24 09:48 PHQ-9: PHQ-9 Score PHQ-9: Total score 7 06/01/24 12:39 Depression Screening Interpretation: Positive Depression Screening Follow-up: Existing condition and In treatment Thrive Assessment: Date of Thrive Assessment Date Thrive assessed 06/01/24 06/01/24 09:48 Currently or been in a relationship where the following occur: No concerns reported Const General: no acute distress and alert HENMT Throat: Yes posterior oropharynx normal and Yes tonsils normal (no TP congestion) Neck Neck: Yes no lymphadenopathy and Yes supple Thyroid: Thyroid normal Resp Auscultation: clear to auscultation bilaterally, no rales and no rhonchi Cardio Rate: regular rate Rhythm: regular rhythm Heart sounds: no murmurs GI Palpation (GI): Soft to palpation and nontender Auscultation: normal bowel sounds General: Yes no CVA tenderness Back/Spine/Pelvis Back: no CVA tenderness Thoracic/Lumbar Spine: No lumbar spinal tenderness Skin Other: (+) multiple, painful, non-draining, ulcers/sores over the distal half of both lower legs Extrem General: Yes no clubbing, cyanosis or edema Results Reviewed Results Reviewed: Laboratory Tests 05/26/24 05/26/24 09:42 09:48 WBC 6.8 Hgb 12.9 Hct 40.8 Plt Count 434 H D Sodium 140 Potassium 4.6 Creatinine 0.72 Estimated GFR > 60 Fasting Glucose 95 Calcium 9.6 AST 29 ALT 14 C-Reactive Protein 0.46 Triglycerides 158 H Cholesterol 153 LDL Cholesterol, Calc 78 HDL Cholesterol 44 Vitamin B12 407 25-OH Vitamin D Total 19.4 L TSH 4.42 H Free T4 1.05 Ur Specific [place] 1.015 Urine Protein Negative Urine Glucose (UA) Negative Urine Blood Trace H Urine Nitrite Negative Ur Leukocyte Esterase Trace H Coding Level of Care Code Est Pt Level 4 (44250) Complex EM visit Add On G2211 Diagnoses Ulcers of both lower extremities, unspecified ulcer stage L97.919; L97.929 Non-pressure ulcer stage: unspecified non-pressure ulcer stage Pure hypercholesterolemia E78.00 Benign essential hypertension I10 Paroxysmal atrial fibrillation I48.0 Moderate persistent asthma without complication J45.40 Asthma complication type: uncomplicated Asthma persistence: persistent Asthma severity: moderate Seasonal allergic rhinitis due to pollen J30.1 Allergic rhinitis seasonality: seasonal Allergic rhinitis trigger: pollen GERD without esophagitis K21.9 Constipation, unspecified constipation type K59.00 Constipation type: unspecified constipation type Vitamin D deficiency E55.9 Osteoporosis without current pathological fracture, unspecified osteoporosis type M81.0 Osteoporosis type: unspecified Presence of current pathological fracture: without current pathological fracture Primary osteoarthritis involving multiple joints M89.49 Insomnia, unspecified type G47.00 Insomnia type: unspecified Anxiety F41.9 Episode of recurrent major depressive disorder, unspecified depression episode severity F33.9 Active/Remission status: currently active Depression Type: major depressive disorder Major depression episode severity: unspecified Major depression recurrence: recurrent Obesity (BMI 30-39.9) E66.9 Additional Codes PHQ-9 - 93668 - PHQ-9 Billing: Yes ([id number]) Assessment & Plan Assessment & Plan (1) Ulcers of both lower extremities: Code(s): L97.919 - Non-pressure chronic ulcer of unspecified part of right lower leg with unspecified severity; L97.929 - Non-pressure chronic ulcer of unspecified part of left lower leg with unspecified severity Category: Medical Qualifiers: Non-pressure ulcer stage: unspecified non-pressure ulcer stage Qualified Code(s): L97.919 - Non-pressure chronic ulcer of unspecified part of right lower leg with unspecified severity; L97.929 - Non-pressure chronic ulcer of unspecified part of left lower leg with unspecified severity Plan: Patient has been seen by vascular surgery at [place] in the past and was advised that her ulcers are non-vascular in origin Previous workups, including arterial duplex, venous doppler, angiogram and CTA of the aorta, have all come back normal She was seen also by Dr. Rees [place] [facility] [place] evaluation and venous insufficiency testing done were all negative as well Her painful ulcers have responded to empiric Tx with oral prednisone in the past so there were suspicions that her ulcers have an autoimmune or vasculitic component although vasculitis work ups done by rheumatology in the past were all negative except for a borderline positive dsDNA She was also referred to dermatology for consideration for skin biopsy and was seen by Dr. Sandoval in June 2023 but he thought that these were stasis ulcers and did not warrant further investigation; he apparently also had reservations about doing a skin biopsy which may create a new open wound that may be troublesome to heal Patient recently had a skin biopsy done by the wound clinic in November 2023 and her specimens were sent out to [facility] for immunofluorescence studies - results on these all came back negative (direct immunofluorescence is negative for IgG, IgA, IgM, C3 and fibrinogen) She continues to follow up with the Wound Clinic regularly for management of her lower extremity ulcers She was eventually referred out to rheumatology at [facility] in [place] for further evaluation/second opinion After evaluation, rheumatology suspects that patient's recurrent ulcers are most likely neuropathic in origin She was referred to vascular surgery for reassessment and she had arterial studies done at [facility] in [place] on 03/20/2024 and the vascular study came back normal with no evidence of arterial insufficiency on both lower extremities She is currently seeing Neurology for follow-up and is on Gabapentin although she takes that only at night as she reports feeling very tired and sedated during the day if she takes it in the daytime She had EMG and NCV done [place] 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 Follow-up with neurology as scheduled (2) Pure hypercholesterolemia: Code(s): E78.00 - Pure hypercholesterolemia, unspecified Category: Medical Plan: Results of her labs done last week reviewed and discussed with patient Reinforced low cholesterol diet Continue Atorvastatin 80 mg QD Will recheck her labs and fasting lipids in 3 months for follow up (3) Benign essential hypertension: Code(s): I10 - Essential (primary) hypertension Category: Medical Plan: Reinforced low-sodium diet - goal is systolic BP of at least 140 mm or less Continue Candesartan 32 mg QD; HCTZ was previously discontinued (4) Paroxysmal atrial fibrillation: Code(s): I48.0 - Paroxysmal atrial fibrillation Category: Medical Plan: Patient is in sinus rhythm today during her office visit and currently remains asymptomatic from a cardiac standpoint Follow up with Cardiology as scheduled (5) Asthma: Code(s): J45.909 - Unspecified asthma, uncomplicated Category: Medical Qualifiers: Asthma complication type: uncomplicated Asthma persistence: persistent Asthma severity: moderate Qualified Code(s): J45.40 - Moderate persistent asthma, uncomplicated Plan: Continue Advair HFA 115-21 mcg 2 inhalations BID and Albuterol HFA 1 to 2 inhalations Q 6 hours PRN States that she uses her nebulizer only when needed (6) Allergic rhinitis: Code(s): J30.9 - Allergic rhinitis, unspecified Category: Medical Qualifiers: Allergic rhinitis seasonality: seasonal Allergic rhinitis trigger: pollen Qualified Code(s): J30.1 - Allergic rhinitis due to pollen Plan: Continue Loratadine 10 mg QD PRN (7) GERD without esophagitis: Code(s): K21.9 - Gastro-esophageal reflux disease without esophagitis Category: Medical Plan: Dietary restrictions reinforced Continue Omeprazole 40 mg QD (8) Constipation: Code(s): K59.00 - Constipation, unspecified Category: Medical Qualifiers: Constipation type: unspecified constipation type Qualified Code(s): K59.00 - Constipation, unspecified Plan: Reinforced increased oral fluids and dietary fiber Continue Amitiza 24 mcg BID Due to her reported increasing constipation recently despite her current Rx, will start her additionally on Senokot 1 tablet QD PRN (9) Vitamin D deficiency: Code(s): E55.9 - Vitamin D deficiency, unspecified Category: Medical Plan: Continue Vitamin D3 1000 units QD (10) Osteoporosis: Code(s): M81.0 - Age-related osteoporosis without current pathological fracture Category: Medical Qualifiers: Osteoporosis type: unspecified Presence of current pathological fracture: without current pathological fracture Qualified Code(s): M81.0 - Age-related osteoporosis without current pathological fracture Plan: Repeat BMD done in July 2022 revealed that patient's BMD has declined significantly from her previous scan in July 2017, especially in the left femur, which declined by 23.2% from previous Her A/P spine BMD is mostly unchanged and her lowest T-score is now at -3.2 in the femoral neck Patient has been on Alendronate 70 mg Q week for years (unclear when she actually started taking it but most likely > 5 years) and we have instructed patient earlier this year to just finish up her current supply of Alendronate, then D/C the Rx We will also consider having her see endocrinology for her osteoporosis once her current issues with her lower extremity ulcers are under better control (11) Primary osteoarthritis involving multiple joints: Code(s): M89.49 - Other hypertrophic osteoarthropathy, multiple sites Category: Medical Plan: Mostly involving her right knee -? she has received cortisone injection from Orthopedics in the past without any significant relief Have advised her again that physical therapy can help with her knee pain if her symptoms get worse -? patient does not want to pursue this for now, especially with her recurrent painful ulcers ongoing currently Continue Tramadol 50 mg TID PRN and Gabapentin 400 mg Q HS - states that she cannot tolerate taking Gabapentin during the day Follow-up with Orthopedics as scheduled or as needed (12) Insomnia: Code(s): G47.00 - Insomnia, unspecified Category: Medical Qualifiers: Insomnia type: unspecified Qualified Code(s): G47.00 - Insomnia, unspecified Plan: Sleep hygiene reinforced Continue Zolpidem 10 mg Q HS PRN (13) Anxiety: Code(s): F41.9 - Anxiety disorder, unspecified Category: Medical Plan: Continue Lorazepam 0.5 mg 2 to 3 times a day as needed Mirtazapine also appears to be helping (14) Depression: Code(s): F32.9 - Major depressive disorder, single episode, unspecified Category: Medical Qualifiers: Active/Remission status: currently active Depression Type: major depressive disorder Major depression episode severity: unspecified Major depression recurrence: recurrent Qualified Code(s): F33.9 - Major depressive disorder, recurrent, unspecified Plan: Continue Mirtazapine 15 mg Q HS (15) Obesity (BMI 30-39.9): Code(s): E66.9 - Obesity, unspecified Category: Medical Plan: Reinforced diet; exercise and weight loss are unrealistic given patient's current ongoing issues and multiple comorbidities Plan Follow up in 3 months Orders: Orders Complete Blood Count Auto Diff 3 Months D64.9 - Anemia, unspecified Comprehensive [place]. Panel Fast 3 Months E78.00 - Pure hypercholesterolemia, unspecified TSH reflex Free T4 3 Months E78.00 - Pure hypercholesterolemia, unspecified UA CC w/rflx Micro + Cult 3 Months R30.0 - Dysuria Vitamin D 25-OH Total 3 Months E55.9 - Vitamin D deficiency, unspecified Lipid Panel 3 Months E78.00 - Pure hypercholesterolemia, unspecified
== END 2024-06-01 10:30 | disposition home or self-care (01) ==
PROVIDERS: PCP Internal Medicine; Visit Provider Internal Medicine
DX: L97.919 Non-pressure chronic ulcer of unspecified part of right lower leg with unspecified severity (principal); L97.929 Non-pressure chronic ulcer of unspecified part of left lower leg with unspecified severity; I48.0 Paroxysmal atrial fibrillation; F33.9 Major depressive disorder, recurrent, unspecified; F41.9 Anxiety disorder, unspecified; E78.00 Pure hypercholesterolemia, unspecified; I10 Essential (primary) hypertension; J45.40 Moderate persistent asthma, uncomplicated; J30.1 Allergic rhinitis due to pollen; K21.9 Gastro-esophageal reflux disease without esophagitis; K59.00 Constipation, unspecified; E55.9 Vitamin D deficiency, unspecified

== ENCOUNTER → 2024-06-01 09:36 | Outpatient (BNVA) | payer OTHER, SELFPAY | PROVIDERS: PCP Internal Medicine; Visit Provider Internal Medicine | DX: L97.919 Non-pressure chronic ulcer of unspecified part of right lower leg with unspecified severity (principal); L97.929 Non-pressure chronic ulcer of unspecified part of left lower leg with unspecified severity; E78.00 Pure hypercholesterolemia, unspecified; I10 Essential (primary) hypertension; I48.0 Paroxysmal atrial fibrillation; J45.40 Moderate persistent asthma, uncomplicated; J30.1 Allergic rhinitis due to pollen; K21.9 Gastro-esophageal reflux disease without esophagitis; K59.00 Constipation, unspecified; E55.9 Vitamin D deficiency, unspecified; M81.0 Age-related osteoporosis without current pathological fracture; M89.49 Other hypertrophic osteoarthropathy, multiple sites; G47.00 Insomnia, unspecified; F41.9 Anxiety disorder, unspecified; F33.9 Major depressive disorder, recurrent, unspecified | CPT/HCPCS: 96127; 99212 ==

== ENCOUNTER 2024-06-08 17:00 | Emergency (ER) | payer OTHER, SELFPAY ==
--- NOTE | 2024-06-08 17:15 | ED.GENADULT ---
HPI - General Adult General Chief complaint: General Medical Stated complaint: Pain both legs Time Seen by Provider: 06/08/24 21:23 Source: patient, family and old records reviewed Mode of arrival: ambulatory Limitations: no limitations History of Present Illness ED Provider: CARLITOS FLETCHER narrative: 78 yo female with PMH of varicose veins, MGUS, leg ulcers, depression/anxiety, asthma, GERD, PAF , HTN, HLD here with c/o recent dx of neuropathy with foot pain bilaterally and tramadol and oxycodone are not working. She is trying topical lidocaine cream as well with no relief. No new rash, trauma, fevers. States she has pain non stop. She cannot sleep MD complaint: neuropathy Onset (ago): week(s) Location: left, right and lower extremity Radiation: non-radiation Severity: severe Quality: burning and constant Pain Consistency: constant Relieving factors: none Exacerbating factors: movement Associated symptoms: denies other symptoms Treatments prior to arrival: other Related Data Home Medications ?Medication ?Instructions ?Recorded ?Confirmed calcium 600 mg (as carbonate)-vit 1 tab PO DAILY 09/26/22 06/01/24 D3 5 mcg (200 unit)-minerals tablet alclometasone 0.05 % topical cream appl topical 11/19/23 06/01/24 Previous Rx's ?Medication ?Instructions ?Recorded inhalational spacing device #1 ea 04/07/21 (Aerochamber MV spacer) fluticasone propionate 110 2 puff inhalation BID 30 days #12 10/31/22 mcg/actuation HFA aerosol inhaler grams (Flovent HFA) mineral oil (Fleet Mineral Oil 133 ml [place] DAILY PRN constipation 04/08/23 enema) #266 mL polyethylene glycol 3350 17 17 g PO DAILY PRN constipation 04/08/23 gram/dose oral powder (Miralax) #238 grams sennosides 8.6 mg tablet (senna) 8.6 mg PO DAILY #90 tabs 07/31/23 folic acid 1 mg tablet 1 mg PO DAILY #90 tabs 09/13/23 disposable bed pads #1 ea 10/01/23 gloves #1 ea 10/01/23 cholecalciferol (vitamin D3) 25 25 mcg PO DAILY 90 days #90 caps 10/09/23 mcg (1,000 unit) capsule acetaminophen 650 mg 650 mg PO Q8H PRN pain 30 days #90 07/03/24 tablet,extended release tabs candesartan 32 mg tablet 32 mg PO DAILY #90 tabs 01/17/24 mupirocin 2 % topical ointment 1 appl topical TID #22 grams 01/29/24 lactulose 20 gram/30 mL oral 20 g (30 mL) PO DAILY PRN 02/07/24 solution constipation #420 mL atorvastatin 80 mg tablet 80 mg PO BEDTIME 90 days #90 tabs 02/09/24 mirtazapine 15 mg tablet 15 mg PO BEDTIME 90 days #90 tabs 02/28/24 loratadine 10 mg tablet 10 mg PO DAILY PRN allergy 03/22/24 symptoms 90 days #90 tabs zolpidem 10 mg tablet 10 mg PO BEDTIME PRN sleep 30 days 04/02/24 #30 tabs miscellaneous medical supply #1 ea 04/10/24 lubiprostone 24 mcg capsule 24 mcg PO BID #60 caps 04/21/24 (Amitiza) gabapentin 400 mg capsule 400 mg PO TID neuropathy 30 days 04/29/24 #90 caps albuterol sulfate 2.5 mg/3 mL 2.5 mg (3 mL) continuous 05/12/24 (0.083 %) solution for nebulization nebulization QID PRN shortness of breath or wheezing #90 mL Advair HFA 115 mcg-21 2 puff inhalation BID #12 grams 05/21/24 mcg/actuation aerosol inhaler (fluticasone propion-salmeterol) lidocaine 5 % topical ointment 1 appl topical TID PRN pain #50 05/28/24 grams mupirocin 2 % topical ointment 1 appl topical TID lower extremity 05/28/24 ulcers #50 grams oxycodone 10 mg tablet 10 mg PO BEDTIME PRN severe pain 06/02/24 #7 tabs tramadol 50 mg tablet 50 mg PO BID PRN pain 30 days #60 06/02/24 tabs Allergies Allergy/AdvReac Type Severity Reaction Status Date / Time Penicillins Allergy Intermediate Hives Verified 06/08/24 17:18 oxaprozin [From Daypro] Allergy Unknown RASH Verified 06/08/24 17:18 hydroxychloroquine AdvReac Intermediate Abdominal Verified 06/08/24 17:18 Pain budesonide [Symbicort] AdvReac Unknown nausea and Verified 06/08/24 17:18 vomiting Review of Systems Review of Systems: Constitutional : No Fever, No Chills ENT/Mouth : No Ear Pain, No Hoarseness, No sore throat Eyes: No Eye Pain, No Swelling, No Redness, No Foreign Body Cardiovascular : No Chest Pain, No SOB Respiratory : No Cough, No Dyspnea Gastrointestinal : No Nausea, No Vomiting, No Diarrhea, No abdominal Pain Genitourinary : No Dysuria, No Hematuria Musculoskeletal : positive joint pain, No Myalgias, No Joint Swelling Skin : No Skin lacerations, No rash Neuro : No Weakness, No Numbness, No Loss of Consciousness, No Dizziness, No Headache Psych : No Anxiety/Panic, No Depression Heme/Lymph: no easy bruising, no Lymphadenopathy Endocrine : No Polyuria, No Polydipsia All other systems reviewed and are negative [facility] Past Medical History Attestation statement: The following information was validated with the patient. Source: old records reviewed Medical History Constipation Osteoporosis Allergic rhinitis Insomnia Osteoarthritis Obesity (BMI 30-39.9) Depression Anxiety Vitamin D deficiency GERD without esophagitis Asthma Paroxysmal atrial fibrillation Pure hypercholesterolemia Benign essential hypertension PAF (paroxysmal atrial fibrillation) Surgical History History of colonoscopy Family History Family History Father CVD (cardiovascular disease) Stroke Mother Medical history unknown Social History Social History Housing: Apartment Alcohol intake: never Patient Tobacco Use Status: Never used Tobacco e-Cigarette/Vaping Use: Never Used Second Hand Smoke Exposure: Yes Advance Directives: No Advance Directives Information Provided: No Do you have a plan to hurt others: No Plan service: No Current occupational status: disabled Cognitive needs: No Hearing needs: No Vision needs: Yes (glasses) Physical Exam ED Vital Signs: Vital Signs - 24 hr 06/08/24 17:16 06/08/24 19:37 06/08/24 21:39 Temperature 98.0 F 97.9 F 97.9 F Pulse Rate 82 73 77 Respiratory Rate 18 18 20 Blood Pressure 155/82 H 167/86 H 167/85 H Pulse Oximetry 96 99 97 Oxygen Delivery Method Room Air Room Air Room Air BMI result Body Mass Index 34.7 Appearance: Alert. Oriented X3. No acute distress. appears uncomfortable Eyes: Pupils equal, round and reactive to light. ENT: Pharynx normal. Neck: Normal inspection. Neck supple. CVS: Normal heart rate and rhythm. Pulses normal. Respiratory: No respiratory distress. Breath sounds normal. Abdomen: Soft and non-tender. Skin: Skin warm and dry. Normal skin color. Normal skin turgor. Extremities: No lower extremity edema. No calf ttp pain in both feet but they are warm and well perfuses, pulses intact, SILT intact Neuro: Oriented X 3. No motor deficit. No sensory deficit. Course Course Course Narrative: RME performed by Pao Ozuna PA-C. Patient is a 78 year old assigned female at presenting to the emergency department with bilateral foot pain. Patient was recently told the nerves in her feet were / bad . Detailed physical exam and review of systems are deferred to the raised printer. Patient placed back in the waiting room pending room availability. Medications Administered Discontinued Medications Generic Name Dose Route Start Last Admin Trade Name Freq PRN Reason Stop Dose Admin Hydromorphone HCl 2 mg 06/08/24 22:15 06/08/24 22:27 Hydromorphone Hcl 2 Mg Tablet PO 06/08/24 22:16 2 mg ONCE ONE Administration Medical Decision Making Medical Decision Making [facility] Narrative: 78 yo female with PMH of varicose veins, MGUS, leg ulcers, depression/anxiety, asthma, GERD, PAF , HTN, HLD here with c/o burning foot pain bilaterally no trauma no signs of infection has been treated by [facility] and no relief with mediations - PO pain control and monitoring. No signs of infection or vascular compromised. Differential Diagnosis Differential Diagnoses: The differential diagnosis associated with the presentation includes neuropathy, chronic pain Admission/Observation Consideration of admission/observation: Escalation of care including admission/observation considered feels better stable for DC Independent Historian Clinical information obtained from an independent historian. History obtained from or confirmed by: Other External Record Review External record reviewed: Inpatient record and Outpatient record Discharge Plan Discharge Clinical Impression: Neuropathy Patient Disposition: Home, Self-Care Instructions: Peripheral Neuropathy (ED) Additional Instructions: please contact your doctor for prescribing new narcotic you were given 2mg oral dilaudid in the ED with good effect return for any worsening symptoms or concerns. Prescriptions: No Action sennosides [senna] 8.6 mg tablet 8.6 mg PO DAILY Qty: 90 4RF (DME) gloves Large See Rx Instructions .Route .MEDSUPPLY Qty: 1 0RF Rx Instructions: As directed (DME) disposable bed pads See Rx Instructions .Route .MEDSUPPLY Qty: 1 0RF Rx Instructions: As directed 4 per day acetaminophen 650 mg tablet extended release 650 mg PO Q8H PRN (Reason: pain) 30 Days Qty: 90 3RF candesartan 32 mg tablet 32 mg PO DAILY Qty: 90 1RF mupirocin 2 % ointment 1 appl topical TID Qty: 22 2RF lactulose 20 gram/30 mL solution 20 g PO DAILY PRN (Reason: constipation) Qty: 420 0RF atorvastatin 80 mg tablet 80 mg PO BEDTIME 90 Days Qty: 90 1RF mirtazapine 15 mg tablet 15 mg PO BEDTIME 90 Days Qty: 90 0RF loratadine 10 mg tablet 10 mg PO DAILY PRN (Reason: allergy symptoms) 90 Days Qty: 90 1RF zolpidem 10 mg tablet 10 mg PO BEDTIME PRN (Reason: sleep) 30 Days Qty: 30 2RF (DME) miscellaneous medical supply Misc 0 .Route Qty: 1 0RF Rx Instructions: Power Lift Chair - As directed - to use indefinatly lubiprostone [Amitiza] 24 mcg capsule 24 mcg PO BID Qty: 60 1RF albuterol sulfate 2.5 mg /3 mL (0.083 %) solution for nebulization 2.5 mg continuous nebulization QID PRN (Reason: shortness of breath or wheezing) Qty: 90 0RF fluticasone propion-salmeterol [Advair HFA] 115-21 mcg/actuation HFA aerosol inhaler 2 puff inhalation BID Qty: 12 3RF Rx Instructions: administer with spacer mupirocin 2 % ointment 1 appl topical TID Qty: 50 0RF lidocaine 5 % ointment 1 appl topical TID PRN (Reason: pain) Qty: 50 0RF tramadol 50 mg tablet 50 mg PO BID PRN (Reason: pain) 30 Days Qty: 60 0RF oxycodone 10 mg tablet 10 mg PO BEDTIME PRN (Reason: severe pain) Qty: 7 0RF Rx Instructions: Partial Fill upon patient request. calcium carbonate-vit D3-min 600 mg calcium- 200 unit tablet 1 tab PO DAILY mineral oil [Fleet Mineral Oil] Enema 133 ml WI DAILY PRN (Reason: constipation) Qty: 266 0RF Rx Instructions: discard any unused portion polyethylene glycol 3350 [Miralax] 17 gram/dose powder 17 g PO DAILY PRN (Reason: constipation) Qty: 238 0RF (DME) Aerochamber MV Spacer See Rx Instructions .Route Qty: 1 0RF Rx Instructions: As directed fluticasone propionate [Flovent HFA] 110 mcg/actuation HFA aerosol inhaler 2 puff inhalation BID 30 Days Qty: 12 5RF cholecalciferol (vitamin D3) 25 mcg (1,000 unit) capsule 25 mcg PO DAILY 90 Days Qty: 90 3RF folic acid 1 mg tablet 1 mg PO DAILY Qty: 90 1RF alclometasone 0.05 % cream topical gabapentin 400 mg capsule 400 mg PO TID 30 Days Qty: 90 1RF Print Language: U[place]ayan
[2024-06-08 17:16] VITALS: BP 155/82; PULSE 82; RESP 18; TEMP 36.7; O2SAT 96; BMI 34.7
[2024-06-08 19:37] VITALS: BP 167/86; PULSE 73; RESP 18; TEMP 36.6; O2SAT 99
[2024-06-08 21:39] VITALS: BP 167/85; PULSE 77; RESP 20; TEMP 36.6; O2SAT 97
[2024-06-08] MEDS: HYDROmorphone HCl 2 MG TABLET PO (22:27)
[2024-06-08 23:25] VITALS: BP 165/89; PULSE 75; RESP 16; TEMP 36.7; O2SAT 98
--- NOTE | 2024-06-08 23:33 | PC.NURSE ---
This RN took over care at 23:00 from Rn Enma, I reviewed discharge instructions with pt. pt verbalized understanding and wheeled out to lobby for sisal picker.
[2024-06-08 23:34] VITALS: BP 165/89; PULSE 75; RESP 16; TEMP 36.7; O2SAT 98
== END 2024-06-08 23:35 | disposition home or self-care (01) ==
PROVIDERS: Emergency Provider Emergency Medicine; PCP Internal Medicine
DX: G62.9 Polyneuropathy, unspecified (principal); M79.672 Pain in left foot; M79.671 Pain in right foot; I10 Essential (primary) hypertension; I83.90 Asymptomatic varicose veins of unspecified lower extremity; Z79.899 Other long term (current) drug therapy
CPT/HCPCS: 99283

== ENCOUNTER 2024-06-16 09:47 | Outpatient (AMB) | payer OTHER, SELFPAY ==
--- NOTE | 2024-06-16 09:51 | MHC.PC.OV ---
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 Required: No Accompanied by: Daughter Allergies Penicillins Allergy (Intermediate, Verified 06/16/24 10:31) Hives oxaprozin [From Daypro] Allergy (Unknown, Verified 06/16/24 10:31) RASH hydroxychloroquine Adverse Reaction (Intermediate, Verified 06/16/24 10:31) Abdominal Pain budesonide [Symbicort] Adverse Reaction (Unknown, Verified 06/16/24 10:31) nausea and vomiting Medication List - Last Reconciled 06/16/24 by Duong Menon MD acetaminophen ER 650 mg PO Q8H PRN 30 days Advair HFA 115-21 mcg/actuation (fluticasone propion-salmeterol) 2 puffs inhalation BID NS albuterol sulfate 2.5 mg (3 mL) continuous nebulization QID PRN alclometasone 0.05% appl topical atorvastatin 80 mg PO BEDTIME 90 days calcium carbonate-vit D3-min 600 mg calcium- 200 unit 1 tab PO DAILY candesartan 32 mg PO DAILY cholecalciferol (vitamin D3) 25 mcg PO DAILY 90 days [disposable bed pads As directed 4 per day ] fluticasone propionate 110 mcg/actuation (Flovent HFA) 2 puffs inhalation BID 30 days folic acid 1 mg PO DAILY gabapentin 400 mg PO TID 30 days [gloves As directed] inhalational spacing device (Aerochamber MV spacer) As directed lactulose 20 grams (30 mL) PO DAILY PRN lidocaine 5% 1 appl topical TID PRN loratadine 10 mg PO DAILY PRN 90 days lubiprostone (Amitiza) 24 mcg PO BID mineral oil (Fleet Mineral Oil enema) 133 mL [place] DAILY PRN mirtazapine 15 mg PO BEDTIME 90 days miscellaneous medical supply Power Lift Chair - As directed - to use indefinatly mupirocin 2% 1 appl topical TID oxycodone 10 mg PO BEDTIME PRN polyethylene glycol 3350 (Miralax) 17 grams PO DAILY PRN sennosides (senna) 8.6 mg PO DAILY tramadol 50 mg PO BID PRN 30 days zolpidem 10 mg PO BEDTIME PRN 30 days Tobacco use date assessed: 06/01/24 Fall risk assessment: No Falls in past year Last assessed Fall Risk: 06/16/24 Dental Screening Dental Screen Date: 06/01/24 [facility] 06/11 Leg pain HPI Details The patient is a 78-year-old female presenting with issues related to peripheral neuropathy and pain management post-hospital discharge. She was hospitalized due to severe pain and swelling in both legs, rendering her unable to walk. The swelling has subsided, yet the pain persists. She has been diagnosed with neuropathy and prescribed gabapentin for pain management. Her current regimen includes gabapentin 100 mg in the morning and afternoon, and 400 mg at night. She also receives tramadol three times daily and oxycodone, Patient is requesting that she get more than 7 days worth of oxycodone. Continues to have pain in her legs. [facility] Medical History Constipation Osteoporosis Allergic rhinitis Insomnia Osteoarthritis Obesity (BMI 30-39.9) Depression Anxiety Vitamin D deficiency GERD without esophagitis Asthma Paroxysmal atrial fibrillation Pure hypercholesterolemia Benign essential hypertension PAF (paroxysmal atrial fibrillation) Surgical History History of colonoscopy Family History Father CVD (cardiovascular disease) Stroke Mother Medical history unknown Social History Housing: Apartment Alcohol intake: never Patient Tobacco Use Status: Never used Tobacco e-Cigarette/Vaping Use: Never Used Second Hand Smoke Exposure: Yes service: No Current occupational status: disabled Cognitive needs: No Hearing needs: No Vision needs: Yes (glasses) Questionnaire Thrive Questionnaire Date Thrive assessed: 06/01/24 Are you currently unemployed and looking for a job?: No FARIDEH-7 AMB Questionnaire FARIDEH-7 Date FARIDEH - 7 assessed: 06/01/24 Source: Developed by Drs. Abisai Peñaloza, Celina Simeon, Ayad Briceno and colleagues, with an educational elif from [employer]. Physical exam (Primary Care) Vital Signs: Last Vital Signs Pulse 76 06/16/24 09:52 BP 118/82 06/16/24 09:52 Pulse Ox 96 06/16/24 09:52 Oxygen Delivery Method Room Air 06/16/24 09:52 BMI result Body Mass Index 34.0 Tobacco/Smoking Status: Tobacco use Status Tobacco use date assessed 06/01/24 06/16/24 10:02 Patient Tobacco Use Status Never used Tobacco 06/16/24 10:02 e-Cigarette/Vaping Use Never Used 06/16/24 10:02 Thrive Assessment: Date of Thrive Assessment Date Thrive assessed 06/01/24 06/16/24 10:02 Const General: cooperative and healthy appearing Nutritional Appearance: well nourished Orientation/consciousness: patient oriented x3 Limitations: no limitations HENMT Head: Yes normal to inspection Eyes General: appearance normal, both eyes and all related structures Neck Neck: Yes normal visual inspection Chest Chest palpation & inspection: normal palpation of entire chest wall Resp Effort & Inspection: normal respiratory effort Skin Other: Right and left ext: Vascular congestion, tenderness on palpation, few open areas Neuro General: patient oriented x3 Office Procedures Flu Questionnaire Does the patient have a severe egg allergy?: No Immunizations Fluarix Triv [id number] (PF) 45 mcg (15 mcg x 3)/0.5 mL IM syringe Performing Provider: Duong Menon MD Performing Location: [facility] [place] [facility] Documented (not given) by: ALICIA Garcia on 06/16/24 10:04 Reason Not Given: Patient Refused Coding Level of Care Code Est Pt Level 4 (45997) Complex EM visit Add On G2211 Diagnoses Bilateral lower extremity pain M79.604; M79.605 Assessment & Plan Assessment & Plan (1) Bilateral lower extremity pain: Code(s): M79.604 - Pain in right leg; M79.605 - Pain in left leg Category: Medical Plan: - Peripheral Neuropathy: Increase gabapentin dosage to 200 mg in the morning and afternoon, maintaining 400 mg at night. - Bilateral Leg Pain and Swelling: Continue with current tramadol regimen and evaluate effectiveness of increased gabapentin. Monitor for potential side effects or complications. - Pain Management: Discussed the risks associated with opioid use. Plan to minimize oxycodone use. Consider referral to pain management if symptoms persist. Patient was informed and verbally consented to the use of an ambient scribe for clinic note documentation during this visit. Plan During the visit, I discussed the importance of modifying the patient's current pain management strategy to reduce reliance on opioids. Emphasis was placed on increasing gabapentin dosages to provide better neuropathy management and decrease pain levels. I explained the risks of opioid dependency and suggested minimizing oxycodone usage. I addressed the logistical challenges of obtaining medications and will communicate with Dr. Ackerman for seamless processing of prescription refills. I also reviewed the ongoing process regarding the wheelchair request and need for physical devices at home. Orders: Orders Influenza [id number] Immunization Today Z23 - Encounter for immunization Patient Instructions: Patient Instructions- Increase gabapentin to 200 mg in the morning and afternoon, maintaining 400 mg at night. - Continue with current tramadol regimen. - Avoid increasing oxycodone dosage. - Attend upcoming neurology appointment. - Follow up with social services designee regarding wheelchair and insurance documentation. - Monitor for any changes in symptoms or new side effects and report as needed.
[2024-06-16 09:52] VITALS: BP 118/82; PULSE 76; O2SAT 96; BMI 34.0
== END 2024-06-16 10:54 | disposition home or self-care (01) ==
PROVIDERS: PCP Internal Medicine; Visit Provider Internal Medicine
DX: M79.604 Pain in right leg (principal); M79.605 Pain in left leg; Z23 Encounter for immunization

== ENCOUNTER → 2024-06-16 09:47 | Outpatient (BNVA) | payer OTHER, SELFPAY | PROVIDERS: PCP Internal Medicine; Visit Provider Internal Medicine | DX: M79.605 Pain in left leg (principal); M79.604 Pain in right leg | CPT/HCPCS: 90471; 99212 ==

== ENCOUNTER 2024-06-17 15:04 | Outpatient (REF) | payer OTHER, SELFPAY ==
[2024-06-17 17:02] LABS: Erythrocyte Sedimentation Rate 11 MM/HR (0-20)
[2024-06-17 17:36] LABS: Anion Gap 14 (12-20); Blood Urea Nitrogen 25 mg/dL (9-16); Calcium 9.2 mg/dL (8.4-10.2); Carbon Dioxide 28 mmol/L (22-29); Chloride 107 mmol/L (96-108); Estimated Glomerular Filt Rate 56; Glucose Random 107 mg/dL (60-115); Potassium 4.3 mmol/L (3.3-5.1); Sodium 145 mmol/L (135-145)
[2024-06-17 17:38] LABS: Estimated Average Glucose 111 mg/dL; Hemoglobin A1C 118.9409 umol/L; Hemoglobin A1c % 5.5 % (<6.0); Total Hemoglobin (HGBA1C) 3277.2446 umol/L
[2024-06-18 22:29] LABS: Lyme Abs Screen <0.90 index
[2024-06-19 11:34] LABS: Anti Nuclear Antibody Screen NEGATIVE (NEGATIVE)
[2024-06-22 21:14] LABS: IgA 98 mg/dL (70-320); IgG 628 mg/dL (600-1540); IgM 60 mg/dL (50-300)
== END 2024-06-17 15:05 | disposition home or self-care (01) ==
LOC: HO.LAB 15:04
PROVIDERS: PCP Internal Medicine; Visit Provider Psychiatry & Neurology Neurology
DX: G62.9 Polyneuropathy, unspecified (principal)
CPT/HCPCS: 36415; 80048; 82784; 83036; 85652; 86038; 86334; 86617; 86618

== ENCOUNTER 2024-06-19 14:14 | Outpatient (REF) | payer OTHER, SELFPAY ==
[2024-06-24 12:10] LABS: Arsenic, 24H Urine <10 mcg/L (<=80); Cadmium, 24H Urine <0.5 mcg/L (<=5.0); Lead, 24H Urine <10 mcg/L (<80); Mercury, 24H Urine <4 mcg/L (<=20)
== END 2024-06-19 14:15 | disposition home or self-care (01) ==
LOC: HO.LNP 14:14
PROVIDERS: Visit Provider Psychiatry & Neurology Neurology
DX: G62.9 Polyneuropathy, unspecified (principal)
CPT/HCPCS: 82175; 82300; 83655; 83825

== ENCOUNTER 2024-06-30 08:39 | Outpatient (AMB) | payer OTHER, SELFPAY ==
--- NOTE | 2024-06-30 09:33 | MHC.OFFWIV ---
Intake Vital Signs 06/30/24 09:36 Height 5 ft 1 in Weight 188 lb BMI 35.5 BP 126/78 Blood Pressure Location Rt brachial Position Sitting Pulse 69 Pulse Source Pulse Oximeter Pulse Oximetry (%) 95 Oxygen Delivery Method Room Air Intake Visit Reasons: EP blisters (black) per PTS legs turning black Intake Note: Patient here for black/water spots which has been present for about 3 days now. Patient Tobacco Use Status: Never used Tobacco Allergies Penicillins Allergy (Intermediate, Verified 06/30/24 09:36) Hives oxaprozin [From Daypro] Allergy (Unknown, Verified 06/30/24 09:36) RASH hydroxychloroquine Adverse Reaction (Intermediate, Verified 06/30/24 09:36) Abdominal Pain budesonide [Symbicort] Adverse Reaction (Unknown, Verified 06/30/24 09:36) nausea and vomiting Do you need a note to return to daycare/school/sports/work: No HPI HPI Comments History of Present Illness Details The patient is a 78-year-old female presenting with recurrent vesicular dark skin lesions. The issue reportedly began approximately three years ago. The patient describes the lesions as mancuso or raised areas that are fluid-filled, sometimes appearing as bloody water bubbles. These lesions are primarily located on her legs and are associated with burning pain. The lesions tend to swell, pop, and weep a clear fluid. The patient experiences periodic episodes where the lesions recur every two to three months, heal, and then reappear. The patient has been taking gabapentin for her neuropathy, but this medication has not alleviated the burning pain associated with the lesions. She describes the most intense pain as sharp and stabbing, particularly affecting her heel. She has previously been seen by a extrusion operator, who believed the lesions were not cutaneous in origin, suggesting a possible internal cause. Referrals to rheumatology, neurology, and investigations through [facility] vascular surgery have been pursued, including 24-hour urine and blood tests, but conclusive results were not communicated. Gabapentin dosage was adjusted, but no significant improvement has been noted. A steroid cream was prescribed but offered no relief. Recent laboratory results indicating a urinary tract infection are no longer relevant. The patient is seeking further dermatological evaluation. She has no recollection of having an echo and cannot wear compression stockings as they hurt. Pt has had 6 US of bilateral legs to rule out DVTs this year alone with the last one being 06/10, all have been negative. Physical Exam General: Cooperative, healthy appearing, comfortable, no acute distress and well developed Orientation: Patient oriented x3 Limitations: lithuanian speaking Head: Normal to inspection Ears: Hearing grossly normal bilaterally Nose: Normal external nose present Face and sinus: Normal facial exam Eyes: Appearance normal, both eyes and all related structures Neck: Normal visual inspection and Yes full ROM Respiratory: Normal respiratory effort and able to speak in complete sentences Skin: multiple fluid-filled blisters weeping clear fluid and dark scabs noted on bilateral legs, with dark appearance. Neuro: Patient oriented x3 Extremities: as above [facility] Medical History Constipation Osteoporosis Allergic rhinitis Insomnia Osteoarthritis Obesity (BMI 30-39.9) Depression Anxiety Vitamin D deficiency GERD without esophagitis Asthma Paroxysmal atrial fibrillation Pure hypercholesterolemia Benign essential hypertension PAF (paroxysmal atrial fibrillation) Surgical History History of colonoscopy Family History Father CVD (cardiovascular disease) Stroke Mother Medical history unknown Social History Housing: Apartment Alcohol intake: never Patient Tobacco Use Status: Never used Tobacco e-Cigarette/Vaping Use: Never Used Second Hand Smoke Exposure: Yes service: No Current occupational status: disabled Cognitive needs: No Hearing needs: No Vision needs: Yes (glasses) Physical Exam Vital Signs: Last Vital Signs Pulse 69 06/30/24 09:36 BP 126/78 06/30/24 09:36 Pulse Ox 95 06/30/24 09:36 Oxygen Delivery Method Room Air 06/30/24 09:36 BMI result Body Mass Index 35.5 Assessment & Plan Assessment & Plan (1) Leg lesion: Code(s): L98.9 - Disorder of the skin and subcutaneous tissue, unspecified Plan: Plan Suggestion - Referral to dermatology for further assessment of the vesicular skin lesions. They do not appear to be shingles and as they come/go every few months for 3 years, less likely. - Consider differential diagnosis, including potential vascular or infectious causes, given the clear fluid nature of the lesions and atypical appearance as they do not resemble shingles. - Will send PCP note to request Echo for bilateral leg swelling, has had 6 US of bilat legs to rule out DVT therefore not repeating the test today. XAVIER wrapped legs - pt reports improvement in comfort, recommended transitioning to compression stockings as able to tolerarte. - Continuation of the current neuropathy management with gabapentin. - Await results from previous urine and blood tests to rule out any contributing factors. - Educate the patient on recognizing changes in lesion appearance or pain that may require immediate attention. (2) Leg swelling: Code(s): M79.89 - Other specified soft tissue disorders Plan: Plan Suggestion - Referral to dermatology for further assessment of the vesicular skin lesions. They do not appear to be shingles and as they come/go every few months for 3 years, less likely. - Consider differential diagnosis, including potential vascular or infectious causes, given the clear fluid nature of the lesions and atypical appearance as they do not resemble shingles. - Will send PCP note to request Echo for bilateral leg swelling, has had 6 US of bilat legs to rule out DVT therefore not repeating the test today. XAVIER wrapped legs - pt reports improvement in comfort, recommended transitioning to compression stockings as able to tolerarte. - Continuation of the current neuropathy management with gabapentin. - Await results from previous urine and blood tests to rule out any contributing factors. - Educate the patient on recognizing changes in lesion appearance or pain that may require immediate attention. Plan Patient was informed and verbally consented to the use of an ambient scribe for clinic note documentation during this visit. Orders: Referrals Dermatology Referral L98.9 - Disorder of the skin and subcutaneous tissue, unspecified Coding Level of Care Code Est Pt Level 5 (72259) Diagnoses Leg lesion L98.9 Leg swelling M79.89
[2024-06-30 09:36] VITALS: BP 126/78; PULSE 69; O2SAT 95; BMI 35.5
== END 2024-06-30 10:52 | disposition home or self-care (01) ==
PROVIDERS: PCP Internal Medicine; Visit Provider Physician Assistant
DX: L98.9 Disorder of the skin and subcutaneous tissue, unspecified (principal); M79.89 Other specified soft tissue disorders

== ENCOUNTER → 2024-06-30 08:39 | Outpatient (BNVA) | payer OTHER, SELFPAY | PROVIDERS: PCP Internal Medicine; Visit Provider Physician Assistant | DX: G62.9 Polyneuropathy, unspecified (principal); L98.9 Disorder of the skin and subcutaneous tissue, unspecified; M79.89 Other specified soft tissue disorders; Z79.899 Other long term (current) drug therapy | CPT/HCPCS: 99212 ==

== ENCOUNTER 2024-07-06 14:37 | Outpatient (AMB) | payer OTHER, SELFPAY ==
[2024-07-06 14:47] VITALS: BP 130/82; PULSE 75; O2SAT 97; BMI 34.8
--- NOTE | 2024-07-06 14:47 | MHC.PC.OV ---
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: No Accompanied by: Self / Same As Patient Allergies Penicillins Allergy (Intermediate, Verified 07/06/24 15:23) Hives oxaprozin [From Daypro] Allergy (Unknown, Verified 07/06/24 15:23) RASH hydroxychloroquine Adverse Reaction (Intermediate, Verified 07/06/24 15:23) Abdominal Pain budesonide [Symbicort] Adverse Reaction (Unknown, Verified 07/06/24 15:23) nausea and vomiting Medication List - Last Reconciled 07/06/24 by Milton Ackerman MD acetaminophen ER 650 mg PO Q8H PRN 30 days Advair HFA 115-21 mcg/actuation (fluticasone propion-salmeterol) 2 puffs inhalation BID NS albuterol sulfate 2.5 mg (3 mL) continuous nebulization QID PRN alclometasone 0.05% appl topical atorvastatin 80 mg PO BEDTIME 90 days calcium carbonate-vit D3-min 600 mg calcium- 200 unit 1 tab PO DAILY candesartan 32 mg PO DAILY cholecalciferol (vitamin D3) 25 mcg PO DAILY 90 days [disposable bed pads As directed 4 per day ] fluticasone propionate 110 mcg/actuation (Flovent HFA) 2 puffs inhalation BID 30 days folic acid 1 mg PO DAILY gabapentin 400 mg PO TID 30 days [gloves As directed] inhalational spacing device (Aerochamber MV spacer) As directed lactulose 20 grams (30 mL) PO DAILY PRN lidocaine 5% 1 appl topical TID PRN loratadine 10 mg PO DAILY PRN 90 days lubiprostone (Amitiza) 24 mcg PO BID mineral oil (Fleet Mineral Oil enema) 133 mL ID DAILY PRN mirtazapine 15 mg PO BEDTIME 90 days miscellaneous medical supply Power Lift Chair - As directed - to use indefinatly mupirocin 2% 1 appl topical TID oxycodone 10 mg PO BEDTIME PRN polyethylene glycol 3350 (Miralax) 17 grams PO DAILY PRN sennosides (senna) 8.6 mg PO DAILY tramadol 50 mg PO BID PRN 30 days zolpidem 10 mg PO BEDTIME PRN 30 days Tobacco use date assessed: 07/06/24 Fall risk assessment: No Falls in past year Last assessed Fall Risk: 07/06/24 Dental Screening Dental Screen Date: 07/06/24 Did you have a dental visit in the last 12 months?: No Did you have a dental problem in the last 6 months where you did not have access to dental care?: No Was dental information given to patient?: No HPI wounds bilateral legs HPI Details Patient comes in again complaining of breaking out in painful sores on her lower legs and ankles lately She has been evaluated extensively in the past by dermatology, vascular surgery and rheumatology for her recurrent painful ulcers and they have all ruled out dermatologic, vascular and rheumatologic etiologies for her recurrent painful lower extremity ulcers She was seen by Dr. Velázquez recently and was sent for some labs and tests to evaluate her for possible neuropathic causes and she has a follow up appt with neurology in August 2024 She also recently had her Gabapentin increased to 800 mg TID by neurology She denies any fever PFSH Medical History Constipation Osteoporosis Allergic rhinitis Insomnia Osteoarthritis Obesity (BMI 30-39.9) Depression Anxiety Vitamin D deficiency GERD without esophagitis Asthma Paroxysmal atrial fibrillation Pure hypercholesterolemia Benign essential hypertension PAF (paroxysmal atrial fibrillation) Surgical History History of colonoscopy Family History Father CVD (cardiovascular disease) Stroke Mother Medical history unknown Social History Housing: Apartment Alcohol intake: never Patient Tobacco Use Status: Never used Tobacco e-Cigarette/Vaping Use: Never Used Second Hand Smoke Exposure: Yes service: No Current occupational status: disabled Cognitive needs: No Hearing needs: No Vision needs: Yes (glasses) Questionnaire PHQ-9 Over the last 2 weeks, how often have you been bothered by any of the following problems? 1. Little interest or pleasure in doing things: not at all 2. Feeling down, depressed, or hopeless: several days 3. Trouble falling or staying asleep, or sleeping too much: more than half the days 4. Feeling tired or having little energy: nearly every day 5. Poor appetite or overeating: not at all 6. Feeling bad about yourself - or that you are a failure or have let yourself or your family down: not at all 7. Trouble concentrating on things, such as reading the newspaper or watching television: not at all 8. Moving or speaking so slowly that other people could have noticed. Or the opposite - being so fidgety or restless that you have been moving around a lot more than usual: several days 9. Thoughts that you would be better off or of hurting yourself in some way: not at all Total score: 7 Depression Screening Interpretation: Positive Depression Screening Follow-up: Existing condition and In treatment Depression Screening Done: Yes 94863 - PHQ-9 Billing: Yes Source: Developed by Drs. Abisai Peñaloza, Celina Simeon, Ayad Briceno and colleagues, with an educational elif from [employer]. Thrive Questionnaire Date Thrive assessed: 07/06/24 I am a: Patient What is your living situation today?: I have a steady place to live Within the past 12 months, did the food you bought not last and you didn't have the money to get more?: Never true Within the past 12 months, did you worry whether your food would run out before you got money to buy more?: Never true Do you have trouble paying for medicines?: No Do you have trouble getting transportation to medical appointments?: No Do you have trouble paying your heating and electricity bill?: No Do you have trouble taking care of your child, family member or friend?: No Do you have trouble with day-to-day activities such as bathing, preparing meals, shopping, managing finances, etc.?: No Are you currently unemployed and looking for a job?: No Are you interested in more education?: No Please select the resources that you would like help with: None Currently or been in a relationship where the following occur: No concerns reported THRIVE Score: 0 AUDIT C Alcohol Use Questionnaire (AUDIT-C) 1. How often do you have a drink containing alcohol?: Never 3. How often do you have six or more drinks on one occasion?: Never Total Score: 0 Score Reviewed/Action Taken: Yes FARIDEH-7 AMB Questionnaire FARIDEH-7 Date FARIDEH - 7 assessed: 07/06/24 Feeling nervous, anxious, or on edge: 0 = Not at all Not being able to stop or control worryin = Not at all Worrying too much about different things: 0 = Not at all Trouble relaxin = Not at all Being so restless that it is hard to sit still: 0 = Not at all Becoming easily annoyed or irritable: 0 = Not at all Feeling afraid as if something awful might happen: 0 = Not at all Total FARIDEH-7 score (0-4 normal; 5-9 mild; 10-14 moderate; 15-21 severe): 0 Source: Developed by Drs. Abisai Peñaloza, Celina Simeon, Ayad Briceno and colleagues, with an educational elif from [employer]. Review of Systems Const Denies chills, Reports difficulty sleeping (due to pain), Reports fatigue, Denies fever(s) and Denies headache(s) ENT Denies dysphagia, Denies dizziness, Denies otalgia, Denies headache(s), Denies neck pain, Denies odynophagia and Denies sore throat Card Denies chest pain, Denies palpitations and Denies dyspnea Resp Denies chest congestion, Denies cough and Denies dyspnea GI Details: (+) painful hemorrhoids often Denies abdominal pain, Reports constipation (increasing lately), Denies dysphagia, Denies heartburn, Denies diarrhea, Denies nausea, Denies odynophagia and Denies vomiting Denies difficulty voiding, Denies nocturia, Denies dysuria and Reports urinary incontinence (mostly urge incontinence, especially at night) Musc Denies back pain, Reports arthralgias (involving multiple joints, especially in both knees) and Denies neck pain Skin/Breast Denies rash and Reports skin ulcer ((+) multiple painful sores/ulcers on both lower legs distally and on ankles) Neuro Denies dizziness and Denies headache(s) Endo Reports fatigue and Denies palpitations Physical exam (Primary Care) Vital Signs: Last Vital Signs Pulse 75 07/06/24 14:47 BP 130/82 07/06/24 14:47 Pulse Ox 97 07/06/24 14:47 Oxygen Delivery Method Room Air 07/06/24 14:47 BMI result Body Mass Index 34.8 Tobacco/Smoking Status: Tobacco use Status Tobacco use date assessed 07/06/24 07/06/24 14:49 Patient Tobacco Use Status Never used Tobacco 07/06/24 14:49 e-Cigarette/Vaping Use Never Used 07/06/24 14:49 PHQ-9: PHQ-9 Score PHQ-9: Total score 7 07/06/24 15:25 Depression Screening Interpretation: Positive Depression Screening Follow-up: Existing condition and In treatment Thrive Assessment: Date of Thrive Assessment Date Thrive assessed 07/06/24 07/06/24 14:49 Currently or been in a relationship where the following occur: No concerns reported Const General: no acute distress and alert Neck Neck: Yes no lymphadenopathy and Yes supple Thyroid: Thyroid normal Resp Auscultation: clear to auscultation bilaterally, no crackles and no rales Cardio Rate: regular rate Rhythm: regular rhythm Heart sounds: no murmurs GI Palpation (GI): Soft to palpation and nontender Auscultation: normal bowel sounds General: Yes no CVA tenderness Back/Spine/Pelvis Back: no CVA tenderness Thoracic/Lumbar Spine: No lumbar spinal tenderness Skin Other: (+) multiple, painful, non-draining, ulcers/sores over the distal half of both lower legs Extrem General: Yes no clubbing, cyanosis or edema Coding Level of Care Code Est Pt Level 3 (72200) Diagnoses Ulcers of both lower extremities, unspecified ulcer stage L97.919; L97.929 Non-pressure ulcer stage: unspecified non-pressure ulcer stage Additional Codes PHQ-9 - 24326 - PHQ-9 Billing: Yes ([id number]) Assessment & Plan Assessment & Plan (1) Ulcers of both lower extremities: Code(s): L97.919 - Non-pressure chronic ulcer of unspecified part of right lower leg with unspecified severity; L97.929 - Non-pressure chronic ulcer of unspecified part of left lower leg with unspecified severity Category: Medical Qualifiers: Non-pressure ulcer stage: unspecified non-pressure ulcer stage Qualified Code(s): L97.919 - Non-pressure chronic ulcer of unspecified part of right lower leg with unspecified severity; L97.929 - Non-pressure chronic ulcer of unspecified part of left lower leg with unspecified severity Plan: Patient is again experiencing a flare up of painful ulcers on his lower extremities and is currently being evaluated by Dr. Velázquez for neuropathic causes of her symptoms She has been seen and evaluated extensively by dermatology, vascular surgery and rheumatology for her recurrent painful ulcers and they have all ruled out dermatologic, vascular and rheumatologic etiologies for her recurrent painful lower extremity ulcers Will start her again empirically on Doxycycline 100 mg BID x 7 days and on oral Prednisone for a few days Continue Gabapentin 800 mg TID Follow up with neurology as scheduled Plan Follow-up as scheduled in August 2024 Medications: New doxycycline hyclate 100 mg PO BID 7 days 14 caps 0RF prednisone Take 2 tablets (40 mg) once a day x 1 day, then 1 tablet (20 mg) QD x 3 more days 5 tabs 0RF Changed From gabapentin 400 mg PO TID 30 days 90 caps 1RF neuropathy To gabapentin 800 mg (2 x 400 mg) PO TID 30 days 180 caps 1RF neuropathy
== END 2024-07-06 16:50 | disposition home or self-care (01) ==
PROVIDERS: PCP Internal Medicine; Visit Provider Internal Medicine
DX: L97.919 Non-pressure chronic ulcer of unspecified part of right lower leg with unspecified severity (principal); L97.929 Non-pressure chronic ulcer of unspecified part of left lower leg with unspecified severity

== ENCOUNTER → 2024-07-06 14:37 | Outpatient (BNVA) | payer OTHER, SELFPAY | PROVIDERS: PCP Internal Medicine; Visit Provider Internal Medicine | DX: L97.919 Non-pressure chronic ulcer of unspecified part of right lower leg with unspecified severity (principal); L97.929 Non-pressure chronic ulcer of unspecified part of left lower leg with unspecified severity | CPT/HCPCS: 96127; 99212 ==

== ENCOUNTER 2024-08-07 15:44 | Outpatient (AMB) | payer OTHER, SELFPAY ==
--- NOTE | 2024-08-07 15:45 | A.OFFPC_ITS ---
Vital Signs 08/07/24 15:45 Height 5 ft 1 in Intake Visit Reasons: Covid + Airport Location Manager Required: No Accompanied by: Self / Same As Patient Allergies Penicillins Allergy (Intermediate, Verified 08/07/24 16:15) Hives oxaprozin [From Daypro] Allergy (Unknown, Verified 08/07/24 16:15) RASH hydroxychloroquine Adverse Reaction (Intermediate, Verified 08/07/24 16:15) Abdominal Pain budesonide [Symbicort] Adverse Reaction (Unknown, Verified 08/07/24 16:15) nausea and vomiting Medication List - Last Reconciled 08/07/24 by Milton Ackerman MD acetaminophen ER 650 mg PO Q8H PRN 30 days Advair HFA 115-21 mcg/actuation (fluticasone propion-salmeterol) 2 puffs inhalation BID NS albuterol sulfate 2.5 mg (3 mL) continuous nebulization QID PRN alclometasone 0.05% appl topical atorvastatin 80 mg PO BEDTIME 90 days calcium carbonate-vit D3-min 600 mg calcium- 200 unit 1 tab PO DAILY candesartan 32 mg PO DAILY cholecalciferol (vitamin D3) 25 mcg PO DAILY 90 days [disposable bed pads As directed 4 per day ] fluticasone propionate 110 mcg/actuation (Flovent HFA) 2 puffs inhalation BID 30 days folic acid 1 mg PO DAILY gabapentin 800 mg (2 x 400 mg) PO TID 30 days [gloves As directed] inhalational spacing device (Aerochamber MV spacer) As directed lactulose 20 grams (30 mL) PO DAILY PRN lidocaine 5% 1 appl topical TID PRN loratadine 10 mg PO DAILY PRN 90 days lubiprostone (Amitiza) 24 mcg PO BID mineral oil (Fleet Mineral Oil enema) 133 mL WA DAILY PRN mirtazapine 15 mg PO BEDTIME 90 days miscellaneous medical supply Power Lift Chair - As directed - to use indefinatly mupirocin 2% 1 appl topical TID [Nebulizer machine As directed] oxycodone 10 mg PO BEDTIME PRN polyethylene glycol 3350 (Miralax) 17 grams PO DAILY PRN sennosides (senna) 8.6 mg PO DAILY tramadol 50 mg PO BID PRN 30 days zolpidem 10 mg PO BEDTIME PRN 30 days Tobacco use date assessed: 08/07/24 Fall risk assessment: No Falls in past year Last assessed Fall Risk: 08/07/24 Dental Screening Dental Screen Date: 08/07/24 Did you have a dental visit in the last 12 months?: No Did you have a dental problem in the last 6 months where you did not have access to dental care?: No Was dental information given to patient?: No HPI Covid + HPI Details Patient's follow-up visit / consultation today is done over the phone - this is a Telehealth visit Patient's current medications have been reviewed and verified with patient and / or caregiver / proxy and have been updated accordingly in the medication list Patient states that she has been experiencing increased cough and congestion as well as symptoms of dry mouth, sore throat, malaise and on and off headaches for the past 3 days States that she tested herself at home earlier today and came out positive for COVID and is looking for some Rx to help clear up her infection quicker Adds that her old nebulizer unit broke down and she will need a replacement unit VALORIE Add that she is starting to break out again in the painful small ulcers that she has had on her lower legs over the past couple of years and would also like to get her previous Abx refilled She denies any increased SOB or chest pains She denies any fever No nausea/vomiting, no abdominal pain No change in bowel habits noted [facility] Medical History Constipation Osteoporosis Allergic rhinitis Insomnia Osteoarthritis Obesity (BMI 30-39.9) Depression Anxiety Vitamin D deficiency GERD without esophagitis Asthma Paroxysmal atrial fibrillation Pure hypercholesterolemia Benign essential hypertension PAF (paroxysmal atrial fibrillation) Surgical History History of colonoscopy Family History Father CVD (cardiovascular disease) Stroke Mother Medical history unknown Social History Housing: Apartment Alcohol intake: never Patient Tobacco Use Status: Never used Tobacco e-Cigarette/Vaping Use: Never Used Second Hand Smoke Exposure: Yes service: No Current occupational status: disabled Cognitive needs: No Hearing needs: No Vision needs: Yes (glasses) Questionnaire PHQ-9 Over the last 2 weeks, how often have you been bothered by any of the following problems? 1. Little interest or pleasure in doing things: not at all 2. Feeling down, depressed, or hopeless: several days 3. Trouble falling or staying asleep, or sleeping too much: more than half the days 4. Feeling tired or having little energy: nearly every day 5. Poor appetite or overeating: not at all 6. Feeling bad about yourself - or that you are a failure or have let yourself or your family down: not at all 7. Trouble concentrating on things, such as reading the newspaper or watching television: not at all 8. Moving or speaking so slowly that other people could have noticed. Or the opposite - being so fidgety or restless that you have been moving around a lot more than usual: several days 9. Thoughts that you would be better off or of hurting yourself in some way: not at all Total score: 7 Depression Screening Interpretation: Positive Depression Screening Follow-up: Existing condition and In treatment Depression Screening Done: Yes 96105 - PHQ-9 Billing: Yes Source: Developed by Drs. Abisai Peñaloza, Celina Simeon, Ayad Briceno and colleagues, with an educational elif from [employer]. Thrive Questionnaire Date Thrive assessed: 08/07/24 I am a: Patient What is your living situation today?: I have a steady place to live Within the past 12 months, did the food you bought not last and you didn't have the money to get more?: Never true Within the past 12 months, did you worry whether your food would run out before you got money to buy more?: Never true Do you have trouble paying for medicines?: No Do you have trouble getting transportation to medical appointments?: No Do you have trouble paying your heating and electricity bill?: No Do you have trouble taking care of your child, family member or friend?: No Do you have trouble with day-to-day activities such as bathing, preparing meals, shopping, managing finances, etc.?: No Are you currently unemployed and looking for a job?: No Are you interested in more education?: No Please select the resources that you would like help with: None Currently or been in a relationship where the following occur: No concerns reported THRIVE Score: 0 AUDIT C Alcohol Use Questionnaire (AUDIT-C) 1. How often do you have a drink containing alcohol?: Never 3. How often do you have six or more drinks on one occasion?: Never Total Score: 0 Score Reviewed/Action Taken: Yes FARIDEH-7 AMB Questionnaire FARIDEH-7 Date FARIDEH - 7 assessed: 08/07/24 Feeling nervous, anxious, or on edge: 0 = Not at all Not being able to stop or control worryin = Not at all Worrying too much about different things: 0 = Not at all Trouble relaxin = Not at all Being so restless that it is hard to sit still: 0 = Not at all Becoming easily annoyed or irritable: 0 = Not at all Feeling afraid as if something awful might happen: 0 = Not at all Total FARIDEH-7 score (0-4 normal; 5-9 mild; 10-14 moderate; 15-21 severe): 0 Source: Developed by Drs. Abisai Peñaloza, Celina Simeon, Ayad Briceno and colleagues, with an educational elif from [employer]. Review of Systems Const Denies chills, Reports fatigue, Denies fever(s) and Reports headache(s) (on and off) ENT Denies dysphagia, Denies dizziness, Reports dry mouth, Denies otalgia, Reports headache(s) (on and off), Reports nasal congestion, Denies neck pain, Denies odynophagia, Denies sinus pain and Reports sore throat Card Denies chest pain, Denies palpitations and Denies dyspnea Resp Reports chest congestion, Reports cough (recurrent), Denies dyspnea and Denies wheezing GI Details: (+) painful hemorrhoids often Denies abdominal pain, Reports constipation (at times), Denies dysphagia, Denies heartburn, Denies diarrhea, Denies nausea, Denies odynophagia and Denies vomiting Denies difficulty voiding, Denies nocturia, Denies dysuria and Reports urinary incontinence (mostly urge incontinence, especially at night) Musc Denies back pain, Reports arthralgias (involving multiple joints, especially in both knees) and Denies neck pain Skin/Breast Denies rash and Reports skin ulcer ((+) multiple painful sores/ulcers on both lower legs distally and on ankles) Neuro Denies dizziness and Reports headache(s) (on and off) Endo Reports fatigue and Denies palpitations Aller/Immun Denies wheezing Physical exam (Primary Care) Vital Signs: Physical examination is not performed as visit / consultation today is done over the phone - Telehealth visit All physical findings indicated here, if present, are as per patient's and / or caregivers / proxy's report Tobacco/Smoking Status: Tobacco use Status Tobacco use date assessed 08/07/24 08/07/24 15:47 Patient Tobacco Use Status Never used Tobacco 08/07/24 15:47 e-Cigarette/Vaping Use Never Used 08/07/24 15:47 PHQ-9: PHQ-9 Score PHQ-9: Total score 7 08/07/24 16:34 Depression Screening Interpretation: Positive Depression Screening Follow-up: Existing condition and In treatment Thrive Assessment: Date of Thrive Assessment Date Thrive assessed 08/07/24 08/07/24 15:47 Currently or been in a relationship where the following occur: No concerns reported Telehealth Telehealth Telehealth Platform: Telephone Location of provider rendering services: practice address Location of patient: address on file Patient Identification confirmed using: Name, : Yes Telehealth method: voice only Patient verbally consented to treatment: Yes Patient verbally consented to billing insurance company: Yes Patient informed of any privacy concerns related to visit: Yes Minutes spent on Phone/Video with Pt.: 15 Coding Level of Care Code Tele Est Pt Level 3 (95970) Diagnoses COVID-19 U07.1 Ulcers of both lower extremities, unspecified ulcer stage L97.919; L97.929 Non-pressure ulcer stage: unspecified non-pressure ulcer stage Additional Codes PHQ-9 - 71802 - PHQ-9 Billing: Yes ([id number]) Assessment & Plan Assessment & Plan (1) COVID-19: Code(s): U07.1 - COVID-19 Category: Medical Plan: Will start patient on Paxlovid but only on the renal dose due to her age and mild renal insufficiency (GFR was most recently at 56) Have advised patient that she can continue taking her current OTC cough/cold meds PRN for symptomatic relief and is reminded to stay hydrated (2) Ulcers of both lower extremities: Code(s): L97.919 - Non-pressure chronic ulcer of unspecified part of right lower leg with unspecified severity; L97.929 - Non-pressure chronic ulcer of unspecified part of left lower leg with unspecified severity Category: Medical Qualifiers: Non-pressure ulcer stage: unspecified non-pressure ulcer stage Qualified Code(s): L97.919 - Non-pressure chronic ulcer of unspecified part of right lower leg with unspecified severity; L97.929 - Non-pressure chronic ulcer of unspecified part of left lower leg with unspecified severity Plan: Patient is again experiencing a flare up of painful ulcers on her lower extremities She has been seen and evaluated extensively by dermatology, vascular surgery and rheumatology for these and they have all ruled out dermatologic, vascular and rheumatologic etiologies Will start her again empirically on Doxycycline 100 mg BID x 7 days but have advised her to wait and start taking these ONLY after she finished taking her Paxlovid Continue Gabapentin 800 mg TID Follow up with neurology as scheduled Plan Follow up as scheduled next month Medications: New nirmatrelvir-ritonavir 150-100 mg (Paxlovid) PO PER PKG DIR - Take 1 tablet of each med (150 mg + 100 mg) BID x 5 days; STOP taking Atorvastatin while taking Paxlovid 1 ea 0RF doxycycline monohydrate Start taking Doxycycline ONLY AFTER FINISHING Paxlovid - should NOT be taken together with Paxlovid 100 mg PO BID 7 days 14 caps 0RF
--- OUTSIDE RECORDS SUMMARY | 2024-08-07 16:34 | XMS_ITS | Clinical Summary ---
Author Organization [employer] Address [address] [facility] [address] [place] [address] Care Team Providers Care Recruiter Account Manager Name Role Phone Unavailable Primary Care Provider Unavailabl e Social History Tobacco Use Types Packs/Day Years Used Date Smoking Tobacco: Never Assessed Comments Unknown Sex and Gender Information Value Date Recorded Sex Assigned at Female 05/14/2022 10:38 AM EDT Legal Sex Female 10:38 AM EDT Gender Identity Female 05/14/2022 10:38 AM EDT Sexual Orientation Straight 05/14/2022 10 :38 AM EDT Plan of Treatment Health Maintenance Due Date Last Done Comments Depression Screening 1945 Alcohol/Substance Use Screening 1957 Tobacco Screening 1957 DTaP/Tdap/Td Vaccines (1 - Tdap) 1964 Zoster Vaccines (1 of 2) 1995 Pneumococcal Vaccine: 65+ Ye ars (1 of 1 - PCV) 2010 RSV Patients and Pa tients Aged 60 years or older (1 - 1-dose 75+ series) 2020 COVID-19 Vaccine ( - 2023-2 5 season) 2024 Influenza Vaccine (#1) 2024 HIB Vaccines Aged Out No longer eligi ble based on patient's age to complete this topic HPV Vaccines Aged Out No longer eligi ble based on patient's age to complete this topic Hepatitis A Vaccines Aged Out No long er eligible based on patient's age to complete this topic Hepatitis B Vaccines Aged Out No long er eligible based on patient's age to complete this topic IPV Vaccines Aged Out No longer eligi ble based on patient's age to complete this topic Meningococcal Vaccine Aged Out No vickie jameel eligible based on patient's age to complete this topic RSV under 20 months Aged Out No longe r eligible based on patient's age to complete this topic Rotavirus Vaccines Aged Out No longer eligible based on patient's age to complete this topic
--- OUTSIDE RECORDS SUMMARY | 2024-08-07 16:34 | XMS_ITS | Clinical Summary ---
Author Organization [facility] Address [address] [place] [address] Care Team Providers Care Crane Helper Name Role Phone Milton Ackerman MD Primary Care Provider [phone] Medications Medication Sig Dispensed Refills Start Date End Date Status gabapentin (NEURONTIN) 300 MG capsule TOME LING C PSULA DOS VECES AL D A 0 01/28/2023 Active acetaminophen (TYLENOL) 650 MG CR tablet TOME LING TABLETA CADA OCHO HORAS CUANDO SEA NECESARIO PARA EL DOLOR 0 01/28/2023 Active Flovent HFA 110 MCG/ACT inhaler TOME DOS INHALACIONES POR V A ORAL DOS VECES AL D A X30 DAYS 0 01/27/2023 Active Senna-Time 8.6 MG tablet TOME LING TABLETA POR V A ORAL TODOS LOS D AL ACOSTARSE FOR 30 DAYS 0 01/27/2023 Active albuterol 108 (90 Base) MCG/ACT inhaler INHALE UN SOPLIDO POR V A ORAL CADA SEIS HORAS 0 02/18/2023 Active D3-1000 25 MCG (1000 UT) capsule TOME LING C PSULA TODOS LOS D 0 02/07/2023 Active atorvastatin (LIPITOR) tablet 80 mg TOME LING TABLETA TODOS LOS D AL ACOSTARSE 0 01/27/2023 Active alendronate (FOSAMAX) tablet 70 mg TOME LING TABLETA POR V A ORAL ONCE WEEKLY 0 01/23/2023 Active zolpidem (AMBIEN) 10 MG tablet TOME LING TABLETA TODOS LOS D AL ACOSTARSE CUANDO SEA NECESARIO PARA DORMIR 0 02/05/2023 Active candesartan (ATACAND) 32 MG tablet TOME LING TABLETA POR V A ORAL TODOS LOS D 0 01/27/2023 Active doxycycline monohydrate (MONODOX) 100 MG capsule TOME LING C PSULA DOS VECES AL D A POR 7 D 0 02/08/2023 Active traMADol (ULTRAM) 50 MG tablet TOME ILNG TABLETA DOS VECES AL D A CUANDO SEA NECESARIO PARA EL DOLOR X30 DAYS 0 01/28/2023 Active Social History Tobacco Use Types Packs/Day Years Used Date Smoking Tobacco: Never Smokeless Tobacco: Never Alcohol Use Standard Drinks/Week Comments Never 0 (1 standard drink = 0.6 oz pur e alcohol) Sex and Gender Information Value Date Recorded Sex Assigned at Not on file Gender Identity Not on file Sexual Orientation Not on file Job Start Date Occupation Industry Not on file Not on file Not on file Last Filed Vital Signs Vital Sign Reading Time Taken Comments Blood Pressure 176/91 02/27/2023 1:47 PM EDT Pulse 74 02/27/2023 1:47 PM EDT Temperature - - Respiratory Rate - - Oxygen Saturation - - Inhaled Oxygen Concentration - - Weight 81.6 kg (180 lb) 02/27/2023 1:47 PM EDT Height 154.9 cm (5' 1 ) 02/27/2023 1:47 PM EDT Body Mass Index 34.01 02/27/2023 1:47 PM EDT Plan of Treatment Health Maintenance Due Date Last Done Comments Hepatitis C Screening 1945 COVID-19 Vaccine (#1) 03[birth year]10/1946 Depression Screening 1957 BMI Counseling 1963 Preventative Health Evaluation 1963 DTap / Tdap / Td (1 - Tdap) 1964 Shingrix-Zoster Vaccine (1 of 2) 1995 Fall Risk Assessment 2010 Osteoporosis Screening (DEXA Scan) 2010 Pneumococcal Vaccine (1 of 1 - PCV) 2010 RSV Adult > 60+ Yrs or Pregn ant (1 - 1-dose 75+ series) 2020 Influenza Vaccine (#1) 2024 Hepatitis B Vaccines Aged Out No long er eligible based on patient's age to complete this topic RSV Ped < 20 months Aged Out No longe r eligible based on patient's age to complete this topic Care Teams Crane Helper Relationship Specialty Start Date End Date Milton Ackerman MD [address] [place] [address] [address] [facility] [place], [place] [id number] PCP - General Internal Medicine 02/18/23
--- OUTSIDE RECORDS SUMMARY | 2024-08-07 16:34 | XMS_ITS | Clinical Summary ---
Author Organization [facility] Address [address] [place] [address] Care Team Providers Care Nut Picker Name Role Phone Tyron Milton Primary Care Provider [phone] Allergies Active Allergy Reactions Criticality Noted Date Comments Hydroxychloroquine Unknown 03/11/2024 Penicillin Cough 03/11/2024 Medications acetaminophen (TYLENOL) 650 mg 8 hr tablet Take 650 mg by mouth every 8 hours as needed. 4 Active albuterol (PROAIR HFA,VENTOLIN HFA) 90 mcg inhaler Inhale 1 puff by mouth every 6 hours as needed. 4 Active albuterol 2.5 mg/3 mL (0.083%) nebulizer solution Inhale via nebulizer. 4 Active alclometasone (ACLOVATE) 0.05 % cream PLEASE SEE ATTACHED FOR DETAILED DIRECTIONS 4 Active alendronate (FOSAMAX) 70 mg tablet Take 70 mg by mouth once a week. 4 Active atorvastatin (LIPITOR) 80 mg tablet Take 80 mg by mouth nightly. 4 Active candesartan (ATACAND) 32 mg tablet Take 32 mg by mouth once a day. 4 Active Vitamin D3 25 mcg (1,000 unit) capsule Take 1,000 Units by mouth once a day. 4 Active SantyL ointment SMARTSIG:Topica l Daily 3 Active fluticasone propionate (FLOVENT HFA) 110 mcg inhaler Inhale 2 puffs by mouth 2 times a day. 4 Active folic acid (FOLVITE) 1 mg tablet Take 1 mg by mouth once a day. 4 Active hydroxychloroqu ine (PLAQUENIL) 200 mg tablet Take 200 mg by mouth 2 times a day. 4 Active lidocaine (XYLOCAINE) 5% ointment 3 times a day. 4 Active loratadine (CLARITIN) 10 mg tablet SMARTSI Tablet(s) By Mouth Daily PRN 4 Active lubiprostone (AMITIZA) 24 mcg capsule Take 24 mcg by mouth 2 times a day with meals. 4 Active mirtazapine (REMERON) 15 mg tablet SMARTSI Tablet(s) By Mouth Every Night 4 Active oxyCODONE IR (ROXICODONE) 10 mg tablet Take 10 mg by mouth. 4 Active senna 8.6 mg tablet TOME LING TABLETA TODOS LOS D 4 Active traMADoL (ULTRAM) 50 mg tablet SMARTSI Tablet(s) By Mouth Twice Daily PRN 4 Active zolpidem (AMBIEN) 10 mg tablet SMARTSI Tablet(s) By Mouth PRN PRN 4 Active gabapentin (NEURONTIN) 300 mg capsule Take 300 mg by mouth 2 times a day. 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 Ulcers of both lower extremi ties, limited to breakdown of skin 03/20/2024 Assessment & Plan (03/20/2024 7:15 PM EDT): - Follow-up in 1 month with venous reflux studies Social History Tobacco Use Types Packs/Day Years Used Date Smoking Tobacco: Never Passive Smoke Exposure: Past Smokeless Tobacco: Never Tobacco Cessation:Counseling Given: Not Answered Alcohol Use Standard Drinks/Week Comments Never 0 (1 standard drink = 0.6 oz pur e alcohol) Comments Unknown Sex and Gender Information Value Date Recorded Sex Assigned at Female 03/11/2024 8:40 AM EDT Legal Sex Female 10:05 AM EDT Gender Identity Not on file Sexual Orientation Not on file Last Filed Vital Signs Vital Sign Reading Time Taken Comments Blood Pressure 144/82 04/24/2024 2:41 PM EDT Pulse 80 04/24/2024 2:41 PM EDT Temperature 36.5 ??C (97.7 ??F) 04/24/2024 2:41 PM ED T Respiratory Rate 16 04/24/2024 2:41 PM EDT Oxygen Saturation 98% 04/24/2024 2:41 PM EDT Inhaled Oxygen Concentration - - Weight 83 kg (183 lb) 04/24/2024 2:41 PM EDT Height 154.9 cm (5' 1 ) 04/24/2024 2:41 PM EDT Body Mass Index 34.58 04/24/2024 2:41 PM EDT Plan of Treatment Health Maintenance Due Date Last Done Comments Hepatitis C Screening 1945 DTaP,Tdap,and Td Vaccines (1 - Tdap) 1967 Osteoporosis Screening 1995 Zoster Vaccines (1 of 2) 1995 Pneumococcal Vaccine: 65+ Years (1 of 1 - PCV) 2010 RSV Vaccine (60+ years old and patients) (1 - 1-dose 75+ series) 2020 COVID-19 Vaccine (4 - 2023-2 5 season) 2024 07/06/2021, 09/22/2020, 08/31/2020 Influenza Vaccine (#1) 2024 , 03/31/2019 Alcohol/Substance Use Screening 07/15/2024 Depression Screening and Follow-Up 07/15/2024 Health Care Proxy Review 07/15/2024 Social Drivers of Health Annual Screening 07/15/2024 Hepatitis B Vaccines Aged Out No long er eligible based on patient's age to complete this topic Insurance [facility] Care Teams Nut Picker Relationship Specialty Start Date End Date Milton Ackerman [address] [place] [address] dr Iram Walden, [place] [id number] PCP - General Internal Medicine 01/20/24
--- OUTSIDE RECORDS SUMMARY | 2024-08-07 16:34 | XMS_ITS | Referral Summary ---
Author Organization [facility] Address [address] [place] [address] Care Team Providers Care Stained Glass Painter Name Role Phone Tyron Milton Primary Care Provider [phone] Allergies Active Allergy Reactions Criticality Noted Date [...] 04/24/2024 2:41 PM EDT Plan of Treatment Not on file Insurance [place] [id number] [facility] Care Teams Stained Glass Painter Relationship Specialty Start Date End Date Milton Ackerman [address] [place] [address] [place] [address] PCP - General Internal Medicine 01/20/24
== END 2024-08-07 16:46 | disposition home or self-care (01) ==
LOC: HO.HMCH 15:44
PROVIDERS: PCP Internal Medicine; Visit Provider Internal Medicine
DX: U07.1 COVID-19 (principal); L97.919 Non-pressure chronic ulcer of unspecified part of right lower leg with unspecified severity; L97.929 Non-pressure chronic ulcer of unspecified part of left lower leg with unspecified severity

== ENCOUNTER → 2024-08-07 15:44 | Outpatient (BNVA) | payer OTHER, SELFPAY | PROVIDERS: PCP Internal Medicine; Visit Provider Internal Medicine | DX: U07.1 COVID-19 (principal); L97.919 Non-pressure chronic ulcer of unspecified part of right lower leg with unspecified severity; L97.929 Non-pressure chronic ulcer of unspecified part of left lower leg with unspecified severity | CPT/HCPCS: 96127 ==

== ENCOUNTER 2024-09-03 11:49 | Outpatient (AMB) | payer OTHER, SELFPAY ==
[2024-09-03 11:51] VITALS: BP 120/70; PULSE 74; O2SAT 96; BMI 35.0
--- NOTE | 2024-09-03 11:51 | MHC.PC.OV ---
Vital Signs 09/03/24 11:51 Height 5 ft 1 in Weight 185 lb 4 oz BMI 35.0 BP 120/70 Blood Pressure Location Lt brachial Position Sitting Pulse 74 Pulse Source Pulse Oximeter Pulse Oximetry (%) 96 Oxygen Delivery Method Room Air Intake Visit Reasons: 3 month f/u Facilities Maintenance Engineer Required: No Accompanied by: Self / Same As Patient Allergies Penicillins Allergy (Intermediate, Verified 09/03/24 12:18) Hives oxaprozin [From Daypro] Allergy (Unknown, Verified 09/03/24 12:18) RASH hydroxychloroquine Adverse Reaction (Intermediate, Verified 09/03/24 12:18) Abdominal Pain budesonide [Symbicort] Adverse Reaction (Unknown, Verified 09/03/24 12:18) nausea and vomiting Medication List - Last Reconciled 09/03/24 by Milton Ackerman MD acetaminophen ER 650 mg PO Q8H PRN 30 days Advair HFA 115-21 mcg/actuation (fluticasone propion-salmeterol) 2 puffs inhalation BID NS albuterol sulfate 2.5 mg (3 mL) continuous nebulization QID PRN alclometasone 0.05% appl topical atorvastatin 80 mg PO BEDTIME 90 days calcium carbonate-vit D3-min 600 mg calcium- 200 unit 1 tab PO DAILY candesartan 32 mg PO DAILY cholecalciferol (vitamin D3) 25 mcg PO DAILY 90 days [disposable bed pads As directed 4 per day ] fluticasone propionate 110 mcg/actuation (Flovent HFA) 2 puffs inhalation BID 30 days folic acid 1 mg PO DAILY [gloves As directed] inhalational spacing device (Aerochamber MV spacer) As directed lactulose 20 grams (30 mL) PO DAILY PRN lidocaine 5% 1 appl topical TID PRN loratadine 10 mg PO DAILY PRN 90 days lubiprostone (Amitiza) 24 mcg PO BID mineral oil (Fleet Mineral Oil enema) 133 mL IN DAILY PRN mirtazapine 15 mg PO BEDTIME 90 days miscellaneous medical supply Power Lift Chair - As directed - to use indefinatly mupirocin 2% 1 appl topical TID [Nebulizer machine As directed] [Nebulizer machine As directed] oxycodone 10 mg PO BEDTIME PRN polyethylene glycol 3350 (Miralax) 17 grams PO DAILY PRN pregabalin 200 mg PO BID sennosides (senna) 8.6 mg PO DAILY tramadol 50 mg PO BID PRN 30 days zolpidem 10 mg PO BEDTIME PRN 30 days Tobacco use date assessed: 09/03/24 Fall risk assessment: 1 Fall in past year Last assessed Fall Risk: 09/03/24 Dental Screening Dental Screen Date: 09/03/24 Did you have a dental visit in the last 12 months?: No Did you have a dental problem in the last 6 months where you did not have access to dental care?: No Was dental information given to patient?: No HPI 3 month f/u HPI Details Patient comes in today for her follow up visit States that she is still breaking out recurrent painful ulcers/lesions on her lower extremities She has been evaluated extensively by dermatology, vascular surgery and rheumatology for the recurrent painful ulcers on her lower extremities and so far, dermatologic, vascular and rheumatologic etiologies have all been ruled out She was seen by Dr. Velázquez a few months ago and has been evaluated for possible neuropathic causes, which she has been advised as the most likely cause at this point, and she has a follow up appt with neurology coming up in a couple of weeks She was tried previously on Gabapentin unsuccessfully is now on Pregabalin at 200 mg BID States that she would like to get a refill on her Oxycodone, she takes only at night to relieve her pain and help her get some sleep States that she feels okay otherwise She denies any headaches or dizziness Denies any chest pains, no shortness of breath No nausea/vomiting, no abdominal pain No change in bowel habits noted She was not able to get her follow up labs done prior to her appt today [facility] Medical History Constipation Osteoporosis Allergic rhinitis Insomnia Osteoarthritis Obesity (BMI 30-39.9) Depression Anxiety Vitamin D deficiency GERD without esophagitis Asthma Paroxysmal atrial fibrillation Pure hypercholesterolemia Benign essential hypertension PAF (paroxysmal atrial fibrillation) Surgical History History of colonoscopy Family History Father CVD (cardiovascular disease) Stroke Mother Medical history unknown Social History Housing: Apartment Alcohol intake: never Patient Tobacco Use Status: Never used Tobacco e-Cigarette/Vaping Use: Never Used Second Hand Smoke Exposure: Yes service: No Current occupational status: disabled Cognitive needs: No Hearing needs: No Vision needs: Yes (glasses) Questionnaire PHQ-9 Over the last 2 weeks, how often have you been bothered by any of the following problems? 1. Little interest or pleasure in doing things: not at all 2. Feeling down, depressed, or hopeless: several days 3. Trouble falling or staying asleep, or sleeping too much: more than half the days 4. Feeling tired or having little energy: nearly every day 5. Poor appetite or overeating: not at all 6. Feeling bad about yourself - or that you are a failure or have let yourself or your family down: not at all 7. Trouble concentrating on things, such as reading the newspaper or watching television: not at all 8. Moving or speaking so slowly that other people could have noticed. Or the opposite - being so fidgety or restless that you have been moving around a lot more than usual: several days 9. Thoughts that you would be better off or of hurting yourself in some way: not at all Total score: 7 Depression Screening Interpretation: Positive Depression Screening Follow-up: Existing condition and In treatment Depression Screening Done: Yes 41591 - PHQ-9 Billing: Yes Source: Developed by Drs. Abisai Peñaloza, Celina Simeon, Ayad Briceno and colleagues, with an educational elif from [employer]. Thrive Questionnaire Date Thrive assessed: 09/03/24 I am a: Patient What is your living situation today?: I have a steady place to live Within the past 12 months, did the food you bought not last and you didn't have the money to get more?: Never true Within the past 12 months, did you worry whether your food would run out before you got money to buy more?: Never true Do you have trouble paying for medicines?: No Do you have trouble getting transportation to medical appointments?: No Do you have trouble paying your heating and electricity bill?: No Do you have trouble taking care of your child, family member or friend?: No Do you have trouble with day-to-day activities such as bathing, preparing meals, shopping, managing finances, etc.?: No Are you currently unemployed and looking for a job?: No Are you interested in more education?: No Please select the resources that you would like help with: None Currently or been in a relationship where the following occur: No concerns reported THRIVE Score: 0 AUDIT C Alcohol Use Questionnaire (AUDIT-C) 1. How often do you have a drink containing alcohol?: Never 3. How often do you have six or more drinks on one occasion?: Never Total Score: 0 Score Reviewed/Action Taken: Yes FARIDEH-7 AMB Questionnaire FARIDEH-7 Date FARIDEH - 7 assessed: 09/03/24 Feeling nervous, anxious, or on edge: 0 = Not at all Not being able to stop or control worryin = Not at all Worrying too much about different things: 0 = Not at all Trouble relaxin = Not at all Being so restless that it is hard to sit still: 0 = Not at all Becoming easily annoyed or irritable: 0 = Not at all Feeling afraid as if something awful might happen: 0 = Not at all Total FARIDEH-7 score (0-4 normal; 5-9 mild; 10-14 moderate; 15-21 severe): 0 Source: Developed by Drs. Abisai Peñaloza, Celina Simeon, Ayad Briceno and colleagues, with an educational elif from [employer]. Review of Systems Const Denies chills, Reports fatigue, Denies fever(s) and Denies headache(s) ENT Denies dysphagia, Denies dizziness, Denies otalgia, Denies headache(s), Denies neck pain, Denies odynophagia and Denies sore throat Card Denies chest pain, Denies palpitations and Denies dyspnea Resp Denies chest congestion, Denies cough and Denies dyspnea GI Details: (+) painful hemorrhoids often Denies abdominal pain, Reports constipation (at times), Denies dysphagia, Denies heartburn, Denies diarrhea, Denies nausea, Denies odynophagia and Denies vomiting Denies difficulty voiding, Denies nocturia, Denies dysuria and Reports urinary incontinence (mostly urge incontinence, especially at night) Musc Denies back pain, Reports arthralgias (involving multiple joints, especially in both knees) and Denies neck pain Skin/Breast Denies rash and Reports skin ulcer ((+) multiple painful sores/ulcers on both lower legs distally and on ankles) Neuro Denies dizziness and Denies headache(s) Endo Reports fatigue and Denies palpitations Physical exam (Primary Care) Vital Signs: Last Vital Signs Pulse 74 09/03/24 11:51 BP 120/70 09/03/24 11:51 Pulse Ox 96 09/03/24 11:51 Oxygen Delivery Method Room Air 09/03/24 11:51 BMI result Body Mass Index 35.0 Tobacco/Smoking Status: Tobacco use Status Tobacco use date assessed 09/03/24 09/03/24 11:57 Patient Tobacco Use Status Never used Tobacco 09/03/24 11:57 e-Cigarette/Vaping Use Never Used 09/03/24 11:57 PHQ-9: PHQ-9 Score PHQ-9: Total score 7 09/03/24 12:23 Depression Screening Interpretation: Positive Depression Screening Follow-up: Existing condition and In treatment Thrive Assessment: Date of Thrive Assessment Date Thrive assessed 09/03/24 09/03/24 11:57 Currently or been in a relationship where the following occur: No concerns reported Const General: no acute distress and alert HENMT Ears: TM's normal bilaterally and EAC's normal Throat: Yes posterior oropharynx normal and Yes tonsils normal Neck Neck: Yes supple and No lymphadenopathy Thyroid: Thyroid normal Resp Auscultation: clear to auscultation bilaterally, no rales and no wheezes Cardio Rate: regular rate Rhythm: regular rhythm Heart sounds: no murmurs GI Palpation (GI): Soft to palpation and nontender Auscultation: normal bowel sounds General: Yes no CVA tenderness Back/Spine/Pelvis Back: no CVA tenderness Thoracic/Lumbar Spine: No lumbar spinal tenderness Skin Other: (+) few, small, tender, non-draining, ulcers/sores over the distal half of both lower legs and around both ankles Rashes: no rashes Extrem General: Yes no clubbing, cyanosis or edema Coding Level of Care Code Est Pt Level 4 (83273) Diagnoses Ulcers of both lower extremities, unspecified ulcer stage L97.919; L97.929 Non-pressure ulcer stage: unspecified non-pressure ulcer stage Pure hypercholesterolemia E78.00 Benign essential hypertension I10 Paroxysmal atrial fibrillation I48.0 Moderate persistent asthma without complication J45.40 Asthma severity: moderate Asthma persistence: persistent Asthma complication type: uncomplicated Seasonal allergic rhinitis due to pollen J30.1 Allergic rhinitis trigger: pollen Allergic rhinitis seasonality: seasonal GERD without esophagitis K21.9 Constipation, unspecified constipation type K59.00 Constipation type: unspecified constipation type Vitamin D deficiency E55.9 Osteoporosis without current pathological fracture, unspecified osteoporosis type M81.0 Osteoporosis type: unspecified Presence of current pathological fracture: without current pathological fracture Primary osteoarthritis involving multiple joints M89.49 Insomnia, unspecified type G47.00 Insomnia type: unspecified Anxiety F41.9 Episode of recurrent major depressive disorder, unspecified depression episode severity F33.9 Depression Type: major depressive disorder Major depression recurrence: recurrent Active/Remission status: currently active Major depression episode severity: unspecified Obesity (BMI 30-39.9) E66.9 Additional Codes PHQ-9 - 52305 - PHQ-9 Billing: Yes ([id number]) Assessment & Plan Assessment & Plan (1) Ulcers of both lower extremities: Code(s): L97.919 - Non-pressure chronic ulcer of unspecified part of right lower leg with unspecified severity; L97.929 - Non-pressure chronic ulcer of unspecified part of left lower leg with unspecified severity Category: Medical Qualifiers: Non-pressure ulcer stage: unspecified non-pressure ulcer stage Qualified Code(s): L97.919 - Non-pressure chronic ulcer of unspecified part of right lower leg with unspecified severity; L97.929 - Non-pressure chronic ulcer of unspecified part of left lower leg with unspecified severity Plan: Patient is still breaking out in recurrent painful ulcers on her lower extremities She has been seen and evaluated by dermatology, vascular surgery and rheumatology extensively for these over the past 1 to 2 years and they have ruled out dermatologic, vascular and rheumatologic etiologies for her recurrent ulcers She was seen by Dr. Velázquez a few months ago and is being evaluated for possible neuropathic causes and she has a follow up appt with neurology coming up in a couple of weeks She was trialed unsuccessfully on Gabapentin up to 800 mg TID and is now on Pregabalin, which was just increased in dose to 200 mg BID Follow up with neurology as scheduled (2) Pure hypercholesterolemia: Code(s): E78.00 - Pure hypercholesterolemia, unspecified Category: Medical Plan: Patient was not able to get her follow-up labs done prior to her appointment today As her cholesterol levels were well-controlled when they were last checked in May 2024, have advised patient to just skip her labs at this time Reinforced low cholesterol diet Continue Atorvastatin 80 mg QD Will recheck her labs and fasting lipids in 3 months for follow up - will just have patient use her current orders (updated) for her next lab draw (3) Benign essential hypertension: Code(s): I10 - Essential (primary) hypertension Category: Medical Plan: Reinforced low-sodium diet - goal is systolic BP of at least 140 mm or less Continue Candesartan 32 mg QD; HCTZ was previously discontinued (4) Paroxysmal atrial fibrillation: Code(s): I48.0 - Paroxysmal atrial fibrillation Category: Medical Plan: Patient currently remains in sinus rhythm and is asymptomatic from a cardiac standpoint Follow up with Cardiology as scheduled (5) Asthma: Code(s): J45.909 - Unspecified asthma, uncomplicated Category: Medical Qualifiers: Asthma severity: moderate Asthma persistence: persistent Asthma complication type: uncomplicated Qualified Code(s): J45.40 - Moderate persistent asthma, uncomplicated Plan: Continue Advair HFA 115-21 mcg 2 inhalations BID and Albuterol HFA 1 to 2 inhalations Q 6 hours PRN States that she uses her nebulizer only when needed (6) Allergic rhinitis: Code(s): J30.9 - Allergic rhinitis, unspecified Category: Medical Qualifiers: Allergic rhinitis trigger: pollen Allergic rhinitis seasonality: seasonal Qualified Code(s): J30.1 - Allergic rhinitis due to pollen Plan: Continue Loratadine 10 mg QD PRN (7) GERD without esophagitis: Code(s): K21.9 - Gastro-esophageal reflux disease without esophagitis Category: Medical Plan: Dietary restrictions reinforced Continue Omeprazole 40 mg QD (8) Constipation: Code(s): K59.00 - Constipation, unspecified Category: Medical Qualifiers: Constipation type: unspecified constipation type Qualified Code(s): K59.00 - Constipation, unspecified Plan: Reinforced increased oral fluids and dietary fiber Continue Amitiza 24 mcg BID and Senokot 1 tablet QD PRN (9) Vitamin D deficiency: Code(s): E55.9 - Vitamin D deficiency, unspecified Category: Medical Plan: Continue Vitamin D3 1000 units QD (10) Osteoporosis: Code(s): M81.0 - Age-related osteoporosis without current pathological fracture Category: Medical Qualifiers: Osteoporosis type: unspecified Presence of current pathological fracture: without current pathological fracture Qualified Code(s): M81.0 - Age-related osteoporosis without current pathological fracture Plan: Repeat BMD done in July 2022 revealed that patient's BMD has declined significantly from her previous scan in July 2017, especially in the left femur, which declined by 23.2% from previous Her A/P spine BMD is mostly unchanged and her lowest T-score is now at -3.2 in the femoral neck Patient has been on Alendronate 70 mg Q week for years (unclear when she actually started taking it but most likely > 5 years) and we have instructed patient earlier this year to just finish up her current supply of Alendronate, then D/C the Rx We will also consider having her see endocrinology for her osteoporosis once her current issues with her lower extremity ulcers are under better control (11) Primary osteoarthritis involving multiple joints: Code(s): M89.49 - Other hypertrophic osteoarthropathy, multiple sites Category: Medical Plan: Mostly involving her right knee -? she has received cortisone injection from Orthopedics in the past without any significant relief Have advised her again that physical therapy can help with her knee pain if her symptoms get worse -? patient does not want to pursue this for now, especially with her recurrent painful ulcers ongoing currently Continue Tramadol 50 mg TID PRN; she is also now on Pregabalin 200 mg BID Follow-up with Orthopedics as scheduled or as needed (12) Insomnia: Code(s): G47.00 - Insomnia, unspecified Category: Medical Qualifiers: Insomnia type: unspecified Qualified Code(s): G47.00 - Insomnia, unspecified Plan: Sleep hygiene reinforced Continue Zolpidem 10 mg Q HS PRN (13) Anxiety: Code(s): F41.9 - Anxiety disorder, unspecified Category: Medical Plan: Continue Lorazepam 0.5 mg 2 to 3 times a day as needed Mirtazapine also appears to be helping (14) Depression: Code(s): F32.9 - Major depressive disorder, single episode, unspecified Category: Medical Qualifiers: Depression Type: major depressive disorder Major depression recurrence: recurrent Active/Remission status: currently active Major depression episode severity: unspecified Qualified Code(s): F33.9 - Major depressive disorder, recurrent, unspecified Plan: Continue Mirtazapine 15 mg Q HS (15) Obesity (BMI 30-39.9): Code(s): E66.9 - Obesity, unspecified Category: Medical Plan: Reinforced diet; exercise and weight loss are unrealistic given patient's current ongoing issues and multiple comorbidities Plan Follow up in 3 months Medications: Changed From oxycodone Partial Fill upon patient request. 10 mg PO BEDTIME PRN 7 tabs 0RF severe pain To oxycodone Partial Fill upon patient request. 15 mg PO BEDTIME 7 days PRN 7 tabs 0RF severe pain
--- OUTSIDE RECORDS SUMMARY | 2024-09-03 13:02 | XMS_ITS | Clinical Summary ---
Author Organization [facility] Address [address] [place] [address] Care Team Providers Care Pluck Separator Name Role Phone Tyron Milton Primary Care Provider [phone] Allergies Active Allergy Reactions Criticality Noted Date [...] (1 - Tdap) 1967 Osteoporosis Screening 1995 Pneumococcal Vaccine: 50+ Years (1 of 1 - PCV) 1995 Zoster Vaccines (1 of 2) 1995 RSV Vaccine (60+ years old and patients) [...] patient's age to complete this topic Insurance [facility] Care Teams Pluck Separator Relationship Specialty Start Date End Date Milton Ackerman [address] [place] [address] dr Iram Walden, [place] [id number] PCP - General Internal Medicine 01/20/24
--- OUTSIDE RECORDS SUMMARY | 2024-09-03 13:02 | XMS_ITS | Clinical Summary ---
Author Organization [facility] Address [address] [place] [address] Care Team Providers Care Wind Turbine Mechanic Name Role Phone Milton Ackerman MD Primary Care Provider [phone] Medications Medication Sig Dispensed Refills Start Date [...] Active traMADol (ULTRAM) 50 MG tablet TOME LING TABLETA DOS VECES AL D A CUANDO [...] age to complete this topic Care Teams Wind Turbine Mechanic Relationship Specialty Start Date End Date Milton Ackerman MD [address] [place] [address] Dr [address] Formerly named [facility] [place], [place] [id number] PCP - General Internal Medicine 02/18/23
--- OUTSIDE RECORDS SUMMARY | 2024-09-03 13:02 | XMS_ITS | Clinical Summary ---
Author Organization [employer] Address [address] [facility] [address] [place] [address] Care Team Providers Care Operations Support Professionals Name Role Phone Unavailable Primary Care Provider [...] 1957 DTaP/Tdap/Td Vaccines (1 - Tdap) 1964 Pneumococcal Vaccine: 50+ Ye ars (1 of 1 - PCV) 1995 Zoster Vaccines (1 of 2) 1995 RSV Patients and Pa tients Aged 60 [...]
--- OUTSIDE RECORDS SUMMARY | 2024-09-03 13:02 | XMS_ITS | Referral Summary ---
Author Organization [facility] Address [address] [place] [address] Care Team Providers Care National Park Ranger Name Role Phone Tyron Milton Primary Care Provider [phone] Allergies Active Allergy Reactions Criticality Noted Date [...] Treatment Not on file Insurance [place] [id number] [facility] Care Teams National Park Ranger Relationship Specialty Start Date End Date Milton Ackerman [address] [place] [address] [place] [address] PCP - General Internal Medicine 01/20/24
== END 2024-09-03 12:40 | disposition home or self-care (01) ==
PROVIDERS: PCP Internal Medicine; Visit Provider Internal Medicine
DX: L97.919 Non-pressure chronic ulcer of unspecified part of right lower leg with unspecified severity (principal); L97.929 Non-pressure chronic ulcer of unspecified part of left lower leg with unspecified severity; E78.00 Pure hypercholesterolemia, unspecified; I10 Essential (primary) hypertension; I48.0 Paroxysmal atrial fibrillation; J45.40 Moderate persistent asthma, uncomplicated; J30.1 Allergic rhinitis due to pollen; K21.9 Gastro-esophageal reflux disease without esophagitis; K59.00 Constipation, unspecified; E55.9 Vitamin D deficiency, unspecified; M81.0 Age-related osteoporosis without current pathological fracture; F33.9 Major depressive disorder, recurrent, unspecified; M89.49 Other hypertrophic osteoarthropathy, multiple sites; G47.00 Insomnia, unspecified; F41.9 Anxiety disorder, unspecified; E66.9 Obesity, unspecified

== ENCOUNTER → 2024-09-03 11:49 | Outpatient (BNVA) | payer OTHER, SELFPAY | PROVIDERS: PCP Internal Medicine; Visit Provider Internal Medicine | DX: L97.919 Non-pressure chronic ulcer of unspecified part of right lower leg with unspecified severity (principal); L97.929 Non-pressure chronic ulcer of unspecified part of left lower leg with unspecified severity; E78.00 Pure hypercholesterolemia, unspecified; I10 Essential (primary) hypertension; I48.0 Paroxysmal atrial fibrillation; J45.40 Moderate persistent asthma, uncomplicated; J30.1 Allergic rhinitis due to pollen; K21.9 Gastro-esophageal reflux disease without esophagitis; K59.00 Constipation, unspecified; E55.9 Vitamin D deficiency, unspecified; M81.0 Age-related osteoporosis without current pathological fracture; M89.49 Other hypertrophic osteoarthropathy, multiple sites; G47.00 Insomnia, unspecified; F41.9 Anxiety disorder, unspecified; F33.9 Major depressive disorder, recurrent, unspecified; E66.9 Obesity, unspecified | CPT/HCPCS: 96127; 99212 ==

== ENCOUNTER 2024-09-15 15:55 | Outpatient (AMB) | payer OTHER, SELFPAY ==
--- NOTE | 2024-09-15 16:21 | A.OFFPC_ITS ---
Vital Signs 09/15/24 16:22 Height 5 ft 1 in Weight 185 lb BMI 35.0 BP 136/80 Blood Pressure Location Lt brachial Position Sitting Pulse 87 Pulse Source Pulse Oximeter Temp Source Temporal Artery Scan Pulse Oximetry (%) 95 Oxygen Delivery Method Room Air Intake Visit Reasons: Swelling & Pain Both legs Buccaro Required: Yes Buccaro Language: Track Mechanic Name: Used tablet- manpreet/[id number] Accompanied by: Daughter Allergies Penicillins Allergy (Intermediate, Verified 09/15/24 16:29) Hives oxaprozin [From Daypro] Allergy (Unknown, Verified 09/15/24 16:29) RASH hydroxychloroquine Adverse Reaction (Intermediate, Verified 09/15/24 16:29) Abdominal Pain budesonide [Symbicort] Adverse Reaction (Unknown, Verified 09/15/24 16:29) nausea and vomiting Medication List - Last Reconciled 09/15/24 by KRISTEN Field acetaminophen ER 650 mg PO Q8H PRN 30 days Advair HFA 115-21 mcg/actuation (fluticasone propion-salmeterol) 2 puffs inhalation BID NS albuterol sulfate 2.5 mg (3 mL) continuous nebulization QID PRN alclometasone 0.05% appl topical atorvastatin 80 mg PO BEDTIME 90 days calcium carbonate-vit D3-min 600 mg calcium- 200 unit 1 tab PO DAILY candesartan 32 mg PO DAILY cholecalciferol (vitamin D3) 25 mcg PO DAILY 90 days [disposable bed pads As directed 4 per day ] fluticasone propionate 110 mcg/actuation (Flovent HFA) 2 puffs inhalation BID 30 days folic acid 1 mg PO DAILY [gloves As directed] inhalational spacing device (Aerochamber MV spacer) As directed lactulose 20 grams (30 mL) PO DAILY PRN lidocaine 5% 1 appl topical TID PRN loratadine 10 mg PO DAILY PRN 90 days lubiprostone (Amitiza) 24 mcg PO BID mineral oil (Fleet Mineral Oil enema) 133 mL LA DAILY PRN mirtazapine 15 mg PO BEDTIME 90 days miscellaneous medical supply Power Lift Chair - As directed - to use indefinatly mupirocin 2% 1 appl topical TID [Nebulizer machine As directed] [Nebulizer machine As directed] oxycodone 10 mg PO BEDTIME PRN 7 days pregabalin 200 mg PO BID sennosides (senna) 8.6 mg PO DAILY tramadol 50 mg PO BID PRN 30 days zolpidem 10 mg PO BEDTIME PRN 30 days Tobacco use date assessed: 09/03/24 Fall risk assessment: No Falls in past year Last assessed Fall Risk: 09/15/24 Dental Screening Dental Screen Date: 09/03/24 HPI Swelling & Pain Both legs HPI Details The patient is a 79-year-old female with significant past medical history bilateral lower extremity pain, recurrent venous ulcer of lower extremity, varicose veins of right lower extremity with inflammation, cellulitis of right ankle, primary osteoarthritis involving multiple joints, obesity The patient is presenting complaints of bilateral lower extremity pain Pain in bilateral lower legs is all around the legs but more intense in the calfs of the legs, the is sharp and feels like it is spasm, per patient. The patient has been evaluated by Dermatology, vascular surgery, and rheumatology and they all has been ruled out. The patient is currently being followed by Dr. Velázquez (neurology), who is evaluating her for concerns of neuropathic causes. She was on gabapentin 800 mg TID without any relief and was switched to Pregabalin 200mg BID. The patient is also on oxycodone 10 mg at bedtime and tramadol 50 mg BID prn The patient is presenting with complain of severe pain in BLE and requesting to be referred to [place] for a second opinion. The patient reports that she wants to see if there is a cure. She reports that her leg feels hot like they are on fire Bilateral lower extremities red and swollen. Will treat the patient for cellulitis with Doxycycline 100 mg BID and prednisone 20 mg x3 days. Oxycodone 10 mg was also refilled [facility] Medical History Constipation Osteoporosis Allergic rhinitis Insomnia Osteoarthritis Obesity (BMI 30-39.9) Depression Anxiety Vitamin D deficiency GERD without esophagitis Asthma Paroxysmal atrial fibrillation Pure hypercholesterolemia Benign essential hypertension PAF (paroxysmal atrial fibrillation) Surgical History History of colonoscopy Family History Father CVD (cardiovascular disease) Stroke Mother Medical history unknown Social History Housing: Apartment Alcohol intake: never Patient Tobacco Use Status: Never used Tobacco e-Cigarette/Vaping Use: Never Used Second Hand Smoke Exposure: Yes service: No Current occupational status: disabled Cognitive needs: No Hearing needs: No Vision needs: Yes (glasses) Questionnaire Thrive Questionnaire Date Thrive assessed: 09/03/24 FARIDEH-7 AMB Questionnaire FARIDEH-7 Date FARIDEH - 7 assessed: 09/03/24 Source: Developed by Drs. Abisai Peñaloza, Celina Simeon, Ayad Briceno and colleagues, with an educational elif from [employer]. Review of Systems Const Denies headache(s) Eyes Denies loss of vision ENT Denies vertigo, Denies dizziness, Denies headache(s) and Denies sore throat Card Denies chest pain, Denies leg edema and Denies lightheadedness Resp Denies cough, Denies hemoptysis and Denies wheezing GI Denies abdominal pain, Denies melena, Denies constipation, Denies diarrhea and Denies vomiting Denies urinary frequency, Denies dysuria and Denies urinary urgency Musc Denies arthralgias, Denies joint swelling, Denies numbness and Denies tingling Skin/Breast Reports erythema, Reports skin swelling, Reports skin ulcer and Reports wounds (small healing ulcers to BLE, shooting pain/hot sensation present in BLE) Neuro Denies Abnormal speech present, Denies behavioral changes, Denies vertigo, Denies dizziness, Denies headache(s), Denies loss of vision, Denies memory loss, Denies numbness and Denies tingling Psych Denies anxiety, Denies behavioral changes, Denies depression, Denies memory loss and Denies panic attacks Sky/Lymph Denies easy bleeding and Denies easy bruising Aller/Immun Denies wheezing Physical exam (Primary Care) Vital Signs: Last Vital Signs Pulse 87 09/15/24 16:22 BP 136/80 09/15/24 16:22 Pulse Ox 95 09/15/24 16:22 Oxygen Delivery Method Room Air 09/15/24 16:22 BMI result Body Mass Index 35.0 Tobacco/Smoking Status: Tobacco use Status Tobacco use date assessed 09/03/24 09/15/24 16:32 Patient Tobacco Use Status Never used Tobacco 09/15/24 16:32 e-Cigarette/Vaping Use Never Used 09/15/24 16:32 Thrive Assessment: Date of Thrive Assessment Date Thrive assessed 09/03/24 09/15/24 16:32 Const General: healthy appearing, no acute distress, alert and awake Nutritional Appearance: well nourished Orientation/consciousness: oriented to person, oriented to place and oriented to time HENMT Ears: TM's normal bilaterally General nose exam: Normal nasal mucous membranes and turbinates present Eyes Conjunctivae: conjunctivae normal Sclerae: sclerae normal Pupils: Equal, round and reactive pupils present Neck Neck: Yes no lymphadenopathy and Yes no JVD Thyroid: Thyroid normal Carotids: no bruits Resp Effort & Inspection: normal respiratory effort and not tachypneic Auscultation: no crackles, no rales, no rhonchi and no wheezes Cardio Rate: regular rate Rhythm: regular rhythm Heart sounds: no murmurs and normal S1 and S2 GI Palpation (GI): Soft to palpation, nontender, no hepatomegaly and no splenomegaly Auscultation: normal bowel sounds Skin General skin exam: no rashes or lesions noted and dry skin Neuro General: oriented to person, oriented to place and oriented to time Cranial nerves: Yes Equal, round and reactive pupils present Speech: No Abnormal speech present Gait exam (Neuro): Normal gait present Motor exam (neuro): no tremor noted Extrem General: Yes normal to inspection, Yes full ROM and Yes capillary refill normal Right upper extremity: normal to inspection, full ROM and normal capillary refill Left upper extremity: normal to inspection, full ROM and normal capillary refill Right lower extremity: full ROM, normal capillary refill and lower leg (nonpitting edema/erythema, c/o shooting pain) Details: erythema, tenderness, localized swelling, non-pitting edema, warmth and other (healing sores); no edema Left lower extremity: full ROM, normal capillary refill, edema and lower leg (nonpitting edema/erythema, c/o shooting pain) Details: erythema, tenderness, localized swelling, non-pitting edema, warmth and other (healing sores) Psych Mental Status: mental status grossly normal Speech and movement: Normal speech and movement present Affect: normal affect Attitude: cooperative Thought process: Normal thought process present Coding Level of Care Code Est Pt Level 4 (94931) Diagnoses Cellulitis of lower extremity, unspecified laterality L03.119 Site of cellulitis: extremity Site of cellulitis of extremity: lower extremity Laterality: unspecified laterality Bilateral lower extremity pain M79.604; M79.605 Recurrent venous ulcer of lower extremity I83.009 Time Spent (min) 37 Assessment & Plan Assessment & Plan (1) Cellulitis: Code(s): L03.90 - Cellulitis, unspecified Category: Medical Qualifiers: Site of cellulitis: extremity Site of cellulitis of extremity: lower extremity Laterality: unspecified laterality Qualified Code(s): L03.119 - Cellulitis of unspecified part of limb Plan: doxycycline 100 mg bid x 10 days ordered (2) Bilateral lower extremity pain: Code(s): M79.604 - Pain in right leg; M79.605 - Pain in left leg Category: Medical Plan: Prednisone 20 mg x3 ordered. Continue pregabalin 200 mg BID, tramadol 50 mg BID PRN, and oxycodone 10 mg at bedtime. The patient has being followed by Dr. Velázquez (neurology) to rule out neuropathic causes. The patient is requesting a referral to [place] to get and a second opinion. The patient wants to see if there is a cure (3) Recurrent venous ulcer of lower extremity: Code(s): I83.009 - Varicose veins of unspecified lower extremity with ulcer of unspecified site Category: Medical Plan: healing sores to bilateral lower extremities. doxycycline 100mg bid ordered. Continue mupirocin 2% topical ointment Orders: Referrals Neurology Referral M79.604 - Pain in right leg, M79.605 - Pain in left leg Medications: New doxycycline hyclate 100 mg PO BID 10 days 20 caps 0RF L03.90 - Cellulitis, unspecified prednisone 20 mg PO DAILY 3 days 3 tabs 0RF M79.89 - Other specified soft tissue disorders Refilled oxycodone Partial Fill upon patient request. 10 mg PO BEDTIME 7 days PRN 7 tabs 0RF s evere pain
[2024-09-15 16:22] VITALS: BP 136/80; PULSE 87; O2SAT 95; BMI 35.0
--- OUTSIDE RECORDS SUMMARY | 2024-09-15 19:54 | XMS_ITS | Referral Summary ---
Author Organization [facility] Address [address] [place] [address] Care Team Providers Care Instrumentation Specialist Name Role Phone Tyron Milton Primary Care Provider [phone] Allergies Active Allergy Reactions Criticality Noted Date [...] Treatment Not on file Insurance ANGELICA WALDEN [id number] [facility] [place] Care Teams Instrumentation Specialist Relationship Specialty Start Date End Date Milton Ackerman [address] [place] [address] [place] [address] PCP - General Internal Medicine 01/20/24
--- OUTSIDE RECORDS SUMMARY | 2024-09-15 19:54 | XMS_ITS | Clinical Summary ---
Author Organization [facility] Address [address] [place] [address] Care Team Providers Care Optical Dispenser Name Role Phone Tyron Milton Primary Care Provider [phone] Allergies Active Allergy Reactions Criticality Noted Date [...] patient's age to complete this topic Insurance [facility] Care Teams Optical Dispenser Relationship Specialty Start Date End Date Milton Ackerman [address] [place] [address] dr Iram Walden, ANGELICA [id number] PCP - General Internal Medicine 01/20/24
--- OUTSIDE RECORDS SUMMARY | 2024-09-15 19:54 | XMS_ITS | Clinical Summary ---
Author Organization [facility] Address [address] [place] [address] Care Team Providers Care Calf Skinner Name Role Phone Milton Ackerman MD Primary Care Provider [phone] Medications Medication Sig Dispensed Refills Start Date [...] age to complete this topic Care Teams Calf Skinner Relationship Specialty Start Date End Date Milton Ackerman MD [address] [place] [address] [address] [facility] [place], [place] [id number] PCP - General Internal Medicine 02/18/23
--- OUTSIDE RECORDS SUMMARY | 2024-09-15 19:54 | XMS_ITS | Clinical Summary ---
Author Organization [employer] Address [address] [facility] [address] [place] [address] Care Team Providers Care Carbon Furnace Operator Name Role Phone Unavailable Primary Care Provider [...]
== END 2024-09-15 17:47 | disposition home or self-care (01) ==
PROVIDERS: PCP Internal Medicine
DX: L03.119 Cellulitis of unspecified part of limb (principal); M79.604 Pain in right leg; M79.605 Pain in left leg; I83.009 Varicose veins of unspecified lower extremity with ulcer of unspecified site

== ENCOUNTER → 2024-09-15 15:55 | Outpatient (BNVA) | payer OTHER, SELFPAY | PROVIDERS: PCP Internal Medicine | DX: L03.115 Cellulitis of right lower limb (principal); L03.116 Cellulitis of left lower limb; M79.604 Pain in right leg; M79.605 Pain in left leg; I83.009 Varicose veins of unspecified lower extremity with ulcer of unspecified site | CPT/HCPCS: 99212 ==

== ENCOUNTER 2024-10-27 16:53 | Outpatient (AMB) | payer OTHER, SELFPAY ==
--- NOTE | 2024-10-27 16:53 | A.OFFPC_ITS ---
Vital Signs 10/27/24 16:54 Height 5 ft 1 in Weight 185 lb 4 oz BMI 35.0 BP 124/78 Blood Pressure Location Lt brachial Position Sitting Pulse 88 Pulse Source Pulse Oximeter Pulse Oximetry (%) 95 Oxygen Delivery Method Room Air Intake Visit Reasons: wounds to lower legs & Cardio referral Trash Collector Truck Driver Required: No Trash Collector Truck Driver Name: Used tablet- manpreet/[id number] Accompanied by: Self / Same As Patient Allergies Penicillins Allergy (Intermediate, Verified 11/01/24 23:09) Hives oxaprozin [From Daypro] Allergy (Unknown, Verified 11/01/24 23:09) RASH hydroxychloroquine Adverse Reaction (Intermediate, Verified 11/01/24 23:09) Abdominal Pain budesonide [Symbicort] Adverse Reaction (Unknown, Verified 11/01/24 23:09) nausea and vomiting Medication List - Last Reconciled 11/01/24 by Milton Ackerman MD acetaminophen ER 650 mg PO Q8H PRN 30 days Advair HFA 115-21 mcg/actuation (fluticasone propion-salmeterol) 2 puffs inhalation BID NS albuterol sulfate 2.5 mg (3 mL) continuous nebulization QID PRN alclometasone 0.05% appl topical atorvastatin 80 mg PO BEDTIME 90 days calcium carbonate-vit D3-min 600 mg calcium- 200 unit 1 tab PO DAILY candesartan 32 mg PO DAILY cholecalciferol (vitamin D3) 25 mcg PO DAILY 90 days [disposable bed pads As directed 4 per day ] doxycycline hyclate 100 mg PO BID 10 days fluticasone propionate 110 mcg/actuation (Flovent HFA) 2 puffs inhalation BID 30 days folic acid 1 mg PO DAILY [gloves As directed] inhalational spacing device (Aerochamber MV spacer) As directed lactulose 20 grams (30 mL) PO DAILY PRN lidocaine 5% 1 appl topical TID PRN loratadine 10 mg PO DAILY PRN 90 days lubiprostone (Amitiza) 24 mcg PO BID mineral oil (Fleet Mineral Oil enema) 133 mL VT DAILY PRN mirtazapine 15 mg PO BEDTIME 90 days miscellaneous medical supply Power Lift Chair - As directed - to use indefinatly mupirocin 2% 1 appl topical TID [Nebulizer machine As directed] [Nebulizer machine As directed] oxycodone 15 mg PO BEDTIME PRN 7 days prednisone 20 mg PO DAILY 3 days pregabalin 225 mg PO BID sennosides (senna) 8.6 mg PO DAILY tramadol 50 mg PO BID PRN 30 days zolpidem 10 mg PO BEDTIME PRN 30 days Tobacco use date assessed: 10/27/24 Fall risk assessment: 1 Fall in past year Last assessed Fall Risk: 10/27/24 Dental Screening Dental Screen Date: 10/27/24 Did you have a dental visit in the last 12 months?: No Did you have a dental problem in the last 6 months where you did not have access to dental care?: No Was dental information given to patient?: No HPI wounds to lower legs & Cardio referral HPI Details Patient comes in today for follow-up visit She continues to break out repeatedly in painful sores and small ulcers on both of her lower extremities - this has been going on for a couple of years now and patient has been extensively evaluated by a different specialties, including rheumatology, dermatology and vascular surgery as well as neurology and all of these specialties have ruled out any vasculopathy or any rheumatologic condition as the cause of recurrent lower extremity sores She has also been ruled out by dermatology for any primary dermatologic etiologies Neurology has advised that neuropathy may be a consideration but not conclusively Patient states that her current medication (Pregabalin) that was started by Neurology helped initially but has no longer been doing much over the past few weeks Her daughter is also requesting for cardiology referral as they have been advised that she will also need to be ruled out for any cardiac etiology as all of her previous workups have been negative Patient denies any fever, headaches or dizziness Denies any chest pains, no increased shortness of breath although she does report experiencing some exertional dyspnea off and on and states that her activity level is practically nonexistent she is not able to move around much due to her recurrent painful leg ulcers No nausea/vomiting, no abdominal pain No change in bowel habits noted [facility] Medical History Constipation Osteoporosis Allergic rhinitis Insomnia Osteoarthritis Obesity (BMI 30-39.9) Depression Anxiety Vitamin D deficiency GERD without esophagitis Asthma Paroxysmal atrial fibrillation Pure hypercholesterolemia Benign essential hypertension PAF (paroxysmal atrial fibrillation) Surgical History History of colonoscopy Family History Father CVD (cardiovascular disease) Stroke Mother Medical history unknown Social History Housing: Apartment Alcohol intake: never Patient Tobacco Use Status: Never used Tobacco e-Cigarette/Vaping Use: Never Used Second Hand Smoke Exposure: Yes service: No Current occupational status: disabled Cognitive needs: No Hearing needs: No Vision needs: Yes (glasses) Questionnaire PHQ-9 Over the last 2 weeks, how often have you been bothered by any of the following problems? 1. Little interest or pleasure in doing things: not at all 2. Feeling down, depressed, or hopeless: several days 3. Trouble falling or staying asleep, or sleeping too much: more than half the days 4. Feeling tired or having little energy: nearly every day 5. Poor appetite or overeating: not at all 6. Feeling bad about yourself - or that you are a failure or have let yourself or your family down: not at all 7. Trouble concentrating on things, such as reading the newspaper or watching television: not at all 8. Moving or speaking so slowly that other people could have noticed. Or the opposite - being so fidgety or restless that you have been moving around a lot more than usual: several days 9. Thoughts that you would be better off or of hurting yourself in some way: not at all Total score: 7 Depression Screening Interpretation: Positive Depression Screening Follow-up: Existing condition and In treatment Depression Screening Done: Yes 73525 - PHQ-9 Billing: Yes Source: Developed by Drs. Abisai Peñaloza, Celina Simeon, Ayad Briceno and colleagues, with an educational elif from [employer]. Thrive Questionnaire Date Thrive assessed: 10/27/24 I am a: Patient What is your living situation today?: I have a steady place to live Within the past 12 months, did the food you bought not last and you didn't have the money to get more?: Never true Within the past 12 months, did you worry whether your food would run out before you got money to buy more?: Never true Do you have trouble paying for medicines?: No Do you have trouble getting transportation to medical appointments?: No Do you have trouble paying your heating and electricity bill?: No Do you have trouble taking care of your child, family member or friend?: No Do you have trouble with day-to-day activities such as bathing, preparing meals, shopping, managing finances, etc.?: No Are you currently unemployed and looking for a job?: No Are you interested in more education?: No Please select the resources that you would like help with: None Currently or been in a relationship where the following occur: No concerns reported THRIVE Score: 0 AUDIT C Alcohol Use Questionnaire (AUDIT-C) 1. How often do you have a drink containing alcohol?: Never 3. How often do you have six or more drinks on one occasion?: Never Total Score: 0 Score Reviewed/Action Taken: Yes FARIDEH-7 AMB Questionnaire FARIDEH-7 Date FARIDEH - 7 assessed: 10/27/24 Feeling nervous, anxious, or on edge: 0 = Not at all Not being able to stop or control worryin = Not at all Worrying too much about different things: 0 = Not at all Trouble relaxin = Not at all Being so restless that it is hard to sit still: 0 = Not at all Becoming easily annoyed or irritable: 0 = Not at all Feeling afraid as if something awful might happen: 0 = Not at all Total FARIDEH-7 score (0-4 normal; 5-9 mild; 10-14 moderate; 15-21 severe): 0 Source: Developed by Drs. Abisai Peñaloza, Celina Simeon, Ayad Briceno and colleagues, with an educational elif from [employer]. Review of Systems Const Denies chills, Reports fatigue, Denies fever(s) and Denies headache(s) ENT Denies dysphagia, Denies dizziness, Denies otalgia, Denies headache(s), Denies neck pain, Denies odynophagia and Denies sore throat Card Denies chest pain, Denies palpitations and Denies dyspnea Resp Denies chest congestion, Denies cough and Denies dyspnea GI Details: (+) painful hemorrhoids often Denies abdominal pain, Reports constipation (at times), Denies dysphagia, Denies heartburn, Denies diarrhea, Denies nausea, Denies odynophagia and Denies vomiting Denies difficulty voiding, Denies nocturia, Denies dysuria and Reports urinary incontinence (mostly urge incontinence, especially at night) Musc Denies back pain, Reports arthralgias (involving multiple joints, especially in both knees) and Denies neck pain Skin/Breast Denies rash and Reports skin ulcer ((+) multiple painful sores/ulcers on both lower legs distally and on ankles) Neuro Denies dizziness and Denies headache(s) Endo Reports fatigue and Denies palpitations Physical exam (Primary Care) Vital Signs: Last Vital Signs Pulse 88 10/27/24 16:54 BP 124/78 10/27/24 16:54 Pulse Ox 95 10/27/24 16:54 Oxygen Delivery Method Room Air 10/27/24 16:54 BMI result Body Mass Index 35.0 Tobacco/Smoking Status: Tobacco use Status Tobacco use date assessed 10/27/24 10/27/24 16:59 Patient Tobacco Use Status Never used Tobacco 10/27/24 16:59 e-Cigarette/Vaping Use Never Used 10/27/24 16:59 PHQ-9: PHQ-9 Score PHQ-9: Total score 7 10/27/24 17:17 Depression Screening Interpretation: Positive Depression Screening Follow-up: Existing condition and In treatment Thrive Assessment: Date of Thrive Assessment Date Thrive assessed 10/27/24 10/27/24 16:59 Currently or been in a relationship where the following occur: No concerns reported Const General: no acute distress and alert HENMT Ears: TM's normal bilaterally and EAC's normal Throat: Yes posterior oropharynx normal and Yes tonsils normal Neck Neck: Yes supple and No lymphadenopathy Thyroid: Thyroid normal Resp Auscultation: clear to auscultation bilaterally, no rales and no wheezes Cardio Rate: regular rate Rhythm: regular rhythm Heart sounds: no murmurs GI Palpation (GI): Soft to palpation and nontender Auscultation: normal bowel sounds General: Yes no CVA tenderness Back/Spine/Pelvis Back: no CVA tenderness Thoracic/Lumbar Spine: No lumbar spinal tenderness Skin Other: (+) few, small, tender, non-draining, ulcers/sores over the distal half of both lower legs and around both ankles Rashes: no rashes Extrem General: Yes no clubbing, cyanosis or edema Coding Level of Care Code Est Pt Level 4 (90495) Diagnoses Ulcers of both lower extremities, unspecified ulcer stage L97.919; L97.929 Non-pressure ulcer stage: unspecified non-pressure ulcer stage Pure hypercholesterolemia E78.00 Benign essential hypertension I10 Paroxysmal atrial fibrillation I48.0 Moderate persistent asthma without complication J45.40 Asthma severity: moderate Asthma persistence: persistent Asthma complication type: uncomplicated Insomnia, unspecified type G47.00 Insomnia type: unspecified Anxiety F41.9 Episode of recurrent major depressive disorder, unspecified depression episode severity F33.9 Depression Type: major depressive disorder Major depression recurrence: recurrent Active/Remission status: currently active Major depression episode severity: unspecified Obesity (BMI 30-39.9) E66.9 Additional Codes PHQ-9 - 01834 - PHQ-9 Billing: Yes ([id number]) Assessment & Plan Assessment & Plan (1) Ulcers of both lower extremities: Code(s): L97.919 - Non-pressure chronic ulcer of unspecified part of right lower leg with unspecified severity; L97.929 - Non-pressure chronic ulcer of unspecified part of left lower leg with unspecified severity Category: Medical Qualifiers: Non-pressure ulcer stage: unspecified non-pressure ulcer stage Qualified Code(s): L97.919 - Non-pressure chronic ulcer of unspecified part of right lower leg with unspecified severity; L97.929 - Non-pressure chronic ulcer of unspecified part of left lower leg with unspecified severity Plan: Patient is still breaking out in recurrent painful ulcers on her lower extremities She has been seen and evaluated by dermatology, vascular surgery and rheumatology extensively for these over the past 1 to 2 years and they have ruled out dermatologic, vascular and rheumatologic etiologies for her recurrent ulcers She was seen by Dr. Velázquez a few months ago and is being evaluated for possible neuropathic causes and she has a follow up appt with neurology coming up in a couple of weeks She was trialed unsuccessfully on Gabapentin up to 800 mg TID and is now on Pregabalin 200 mg BID but patient reports that this has not been helping much lately Will go ahead and raise her Pregabalin dose all the way up to 225 mg BID Follow up with neurology as scheduled Per request, will send her for an echocardiogram for further evaluation Will also refer her to cardiology again for evaluation for any possible cardiac etiology for her assumed recurrent painful lower extremity neuropathic ulcers (2) Pure hypercholesterolemia: Code(s): E78.00 - Pure hypercholesterolemia, unspecified Category: Medical Plan: Reinforced low cholesterol diet Continue Atorvastatin 80 mg QD Will recheck her labs and fasting lipids as scheduled in 3 months for follow up (3) Benign essential hypertension: Code(s): I10 - Essential (primary) hypertension Category: Medical Plan: Reinforced low-sodium diet - goal is systolic BP of at least 140 mm or less Continue Candesartan 32 mg QD; HCTZ was previously discontinued (4) Paroxysmal atrial fibrillation: Code(s): I48.0 - Paroxysmal atrial fibrillation Category: Medical Plan: Patient currently remains in sinus rhythm and is asymptomatic from a cardiac standpoint (5) Asthma: Code(s): J45.909 - Unspecified asthma, uncomplicated Category: Medical Qualifiers: Asthma severity: moderate Asthma persistence: persistent Asthma complication type: uncomplicated Qualified Code(s): J45.40 - Moderate persistent asthma, uncomplicated Plan: Continue Advair HFA 115-21 mcg 2 inhalations BID and Albuterol HFA 1 to 2 inhalations Q 6 hours PRN States that she uses her nebulizer only when needed (6) Insomnia: Code(s): G47.00 - Insomnia, unspecified Category: Medical Qualifiers: Insomnia type: unspecified Qualified Code(s): G47.00 - Insomnia, unspecified Plan: Sleep hygiene reinforced Continue Zolpidem 10 mg Q HS PRN (7) Anxiety: Code(s): F41.9 - Anxiety disorder, unspecified Category: Medical Plan: Continue Lorazepam 0.5 mg 2 to 3 times a day as needed Mirtazapine also appears to be helping (8) Depression: Code(s): F32.9 - Major depressive disorder, single episode, unspecified Category: Medical Qualifiers: Depression Type: major depressive disorder Major depression recurrence: recurrent Active/Remission status: currently active Major depression episode severity: unspecified Qualified Code(s): F33.9 - Major depressive disorder, recurrent, unspecified Plan: Continue Mirtazapine 15 mg Q HS (9) Obesity (BMI 30-39.9): Code(s): E66.9 - Obesity, unspecified Category: Medical Plan: Reinforced diet; exercise and weight loss are unrealistic given patient's current ongoing issues and multiple comorbidities Plan Follow up as scheduled in January 2025 Orders: Orders CA echo transthoracic complete 10/27/24 R06.09 - Other forms of dyspnea Referrals Cardiology Referral M79.604 - Pain in right leg, M79.605 - Pain in left leg Medications: Changed From pregabalin 200 mg PO BID To pregabalin 225 mg PO BID 60 caps 0RF
[2024-10-27 16:54] VITALS: BP 124/78; PULSE 88; O2SAT 95; BMI 35.0
--- OUTSIDE RECORDS SUMMARY | 2024-10-27 19:04 | XMS_ITS | Clinical Summary ---
Author Organization [facility] Address [address] [place] [address] Care Team Providers Care Warehouse Selector Name Role Phone Tyron Milton Primary Care Provider [phone] Allergies Active Allergy Reactions Criticality Noted Date [...] 2023-2 5 season) 2024 07/06/2021, 09/22/2020, 08/31/2020 Alcohol/Substance Use Screening 07/15/2024 Depression Screening and Follow-Up 07/15/2024 Health Care Proxy Review 07/15/2024 Social Drivers of Health Annual Screening 07/15/2024 Influenza Vaccine (Season Ended) 2025 04/04/2020, 03/31/2019 Hepatitis B Vaccines Aged Out No long er eligible based on patient's age to complete this topic Insurance [facility] Care Teams Warehouse Selector Relationship Specialty Start Date End Date Milton Ackerman [address] [place] [address] dr Iram Walden, [place] [id number] PCP - General Internal Medicine 01/20/24
--- OUTSIDE RECORDS SUMMARY | 2024-10-27 19:04 | XMS_ITS | Clinical Summary ---
Author Organization [facility] Address [address] [place] [address] Care Team Providers Care Logistics Engineering Manager Name Role Phone Milton Ackerman MD Primary Care Provider [phone] Medications Medication Sig Dispensed Refills Start Date [...] age to complete this topic Care Teams Logistics Engineering Manager Relationship Specialty Start Date End Date Milton Ackerman MD [address] [place] [address] [facility] [place], [place] [id number] PCP - General Internal Medicine 02/18/23
--- OUTSIDE RECORDS SUMMARY | 2024-10-27 19:04 | XMS_ITS | Referral Summary ---
Author Organization [facility] Address [address] [place] [address] Care Team Providers Care General I Farmworker Name Role Phone Tyron Milton Primary Care Provider [phone] Allergies Active Allergy Reactions Criticality Noted Date [...] Treatment Not on file Insurance [place]AL[place] [id number] [facility] Care Teams General I Farmworker Relationship Specialty Start Date End Date Milton Ackerman [address] [place] [address] [place] [address] PCP - General Internal Medicine 01/20/24
--- OUTSIDE RECORDS SUMMARY | 2024-10-27 19:04 | XMS_ITS | Clinical Summary ---
Author Organization [employer] Address [address] [facility] [address] [place] [address] Care Team Providers Care Supply Chain Program Manager Name Role Phone Unavailable Primary Care [...]
== END 2024-10-27 17:25 | disposition home or self-care (01) ==
LOC: HO.HMCH 16:53
PROVIDERS: PCP Internal Medicine; Visit Provider Internal Medicine
DX: I48.0 Paroxysmal atrial fibrillation (principal); L97.919 Non-pressure chronic ulcer of unspecified part of right lower leg with unspecified severity; L97.929 Non-pressure chronic ulcer of unspecified part of left lower leg with unspecified severity; F33.9 Major depressive disorder, recurrent, unspecified; E66.9 Obesity, unspecified; Z68.35 Body mass index [BMI] 35.0-35.9, adult; E78.00 Pure hypercholesterolemia, unspecified; I10 Essential (primary) hypertension; J45.40 Moderate persistent asthma, uncomplicated; G47.00 Insomnia, unspecified; F41.9 Anxiety disorder, unspecified

== ENCOUNTER → 2024-10-27 16:53 | Outpatient (BNVA) | payer OTHER, SELFPAY | PROVIDERS: PCP Internal Medicine; Visit Provider Internal Medicine | DX: L97.829 Non-pressure chronic ulcer of other part of left lower leg with unspecified severity (principal); L97.819 Non-pressure chronic ulcer of other part of right lower leg with unspecified severity; E78.00 Pure hypercholesterolemia, unspecified; I10 Essential (primary) hypertension; J45.40 Moderate persistent asthma, uncomplicated; G47.00 Insomnia, unspecified; F41.9 Anxiety disorder, unspecified; F33.9 Major depressive disorder, recurrent, unspecified; E66.9 Obesity, unspecified; Z68.35 Body mass index [BMI] 35.0-35.9, adult | CPT/HCPCS: 96127; 99212 ==

== ENCOUNTER 2024-11-08 23:39 | Emergency (ER) | payer OTHER, SELFPAY ==
[2024-11-08 23:56] VITALS: BP 130/84; PULSE 77; O2SAT 96
--- NOTE | 2024-11-09 00:08 | ED_ITS ---
HPI - Extremity Problem General Chief complaint: Skin/Abscess/Foreign Body Stated complaint: leg pain Time Seen by Provider: 11/09/24 00:06 Source: patient and family Mode of arrival: ambulatory Limitations: no limitations History of Present Illness ED Provider: HPI Narrative: Patient has stasis dermatitis in lower extremity with history of depression anxiety paroxysmal AFib not on any anticoagulation comes here as she noticed rash on the lower extremities patient in the left since earlier today with slight swelling of the upper part of the leg patient denies any injury no abdominal pain no arthritis no oral lesions no blood in the urine no history of similar rash in the past patient is not on any aspirin Related Data Home Medications ?Medication ?Instructions ?Recorded ?Confirmed calcium 600 mg (as carbonate)-vit 1 tab PO DAILY 09/26/22 11/01/24 D3 5 mcg (200 unit)-minerals tablet alclometasone 0.05 % topical cream appl topical 11/19/23 11/01/24 Previous Rx's ?Medication ?Instructions ?Recorded inhalational spacing device #1 ea 04/07/21 (Aerochamber MV spacer) fluticasone propionate 110 2 puff inhalation BID 30 days #12 10/31/22 mcg/actuation HFA aerosol inhaler grams (Flovent HFA) mineral oil (Fleet Mineral Oil 133 ml MD DAILY PRN constipation 04/08/23 enema) #266 mL sennosides 8.6 mg tablet (senna) 8.6 mg PO DAILY #90 tabs 07/31/23 folic acid 1 mg tablet 1 mg PO DAILY #90 tabs 09/13/23 disposable bed pads #1 ea 10/01/23 gloves #1 ea 10/01/23 loratadine 10 mg tablet 10 mg PO DAILY PRN allergy 03/22/24 symptoms 90 days #90 tabs miscellaneous medical supply #1 ea 04/10/24 albuterol sulfate 2.5 mg/3 mL 2.5 mg (3 mL) continuous 06/23/24 (0.083 %) solution for nebulization nebulization QID PRN shortness of breath or wheezing #90 mL candesartan 32 mg tablet 32 mg PO DAILY #90 tabs 07/19/24 lactulose 20 gram/30 mL oral 20 g (30 mL) PO DAILY PRN 08/03/24 solution constipation #420 mL atorvastatin 80 mg tablet 80 mg PO BEDTIME 90 days #90 tabs 08/06/24 Nebulizer machine #1 ea 08/07/24 Nebulizer machine #1 ea 08/12/24 mirtazapine 15 mg tablet 15 mg PO BEDTIME 90 days #90 tabs 08/14/24 acetaminophen 650 mg 650 mg PO Q8H PRN pain 30 days #90 08/16/24 tablet,extended release tabs mupirocin 2 % topical ointment 1 appl topical TID lower extremity 08/20/24 ulcers #50 grams doxycycline hyclate 100 mg capsule 100 mg PO BID 10 days #20 caps 09/15/24 prednisone 20 mg tablet 20 mg PO DAILY 3 days #3 tabs 09/15/24 Advair HFA 115 mcg-21 2 puff inhalation BID #12 grams 09/16/24 mcg/actuation aerosol inhaler (fluticasone propion-salmeterol) cholecalciferol (vitamin D3) 25 25 mcg PO DAILY 90 days #90 caps 10/11/24 mcg (1,000 unit) capsule lubiprostone 24 mcg capsule 24 mcg PO BID #60 caps 10/13/24 (Amitiza) pregabalin 225 mg capsule 225 mg PO BID #60 caps 10/27/24 lidocaine 5 % topical ointment 1 appl topical TID PRN pain #50 11/02/24 grams oxycodone 15 mg tablet 15 mg PO BEDTIME PRN severe pain 7 11/02/24 days #7 tabs tramadol 50 mg tablet 50 mg PO BID PRN pain 30 days #60 11/02/24 tabs zolpidem 10 mg tablet 10 mg PO BEDTIME PRN sleep 30 days 11/02/24 #30 tabs Allergies Allergy/AdvReac Type Severity Reaction Status Date / Time Penicillins Allergy Intermediate Hives Verified 11/09/24 00:11 oxaprozin [From Daypro] Allergy Unknown RASH Verified 11/09/24 00:11 hydroxychloroquine AdvReac Intermediate Abdominal Verified 11/09/24 00:11 Pain budesonide [Symbicort] AdvReac Unknown nausea and Verified 11/09/24 00:11 vomiting Review of Systems 2 Review of Systems: Yes all other systems are reviewed and are negative PMFSH Past Medical History Medical History Constipation Osteoporosis Allergic rhinitis Insomnia Osteoarthritis Obesity (BMI 30-39.9) Depression Anxiety Vitamin D deficiency GERD without esophagitis Asthma Paroxysmal atrial fibrillation Pure hypercholesterolemia Benign essential hypertension PAF (paroxysmal atrial fibrillation) Surgical History History of colonoscopy Family History Family History Father CVD (cardiovascular disease) Stroke Mother Medical history unknown Social History Social History Housing: Apartment Alcohol intake: never Patient Tobacco Use Status: Never used Tobacco e-Cigarette/Vaping Use: Never Used Second Hand Smoke Exposure: Yes Advance Directives: No Advance Directives Information Provided: Yes Do you have a plan to hurt others: No Plan service: No Current occupational status: disabled Cognitive needs: No Hearing needs: No Vision needs: Yes (glasses) Physical Exam 2 Vital Signs: Vital Signs: Last Vital Signs Temp 97.6 F 11/09/24 00:09 Pulse 73 11/09/24 00:09 Resp 18 11/09/24 00:09 BP 148/85 H 11/09/24 00:09 Pulse Ox 93 11/09/24 00:09 O2 Del Method Room Air 11/09/24 00:09 BMI result Body Mass Index 36.1 Appearance: Alert. Oriented X3. No acute distress. Eyes: PERRLA, No Nystagmus ENT: Pharynx normal. Oral Mucosa moist no oral lesions Neck: Normal inspection. Neck supple. CVS: Normal heart rate and rhythm. Pulses normal. Respiratory: No respiratory distress. Equal air entry bilateral, no wheezing/rales/rhonchi Abdomen: Soft and nontender. Bowel sounds are present, no mass palpable, no CVA tenderness Skin: Skin warm and dry. Normal skin color. Normal skin turgor. Palpable purpura left lower extremity with few spots on the right leg also slight swelling of the upper end of the [place] on the left side Extremities: No lower extremity edema. No calf tenderness Neuro: Oriented X 3. No motor deficit. No sensory deficit.No cerebellar signs , cranial nerves II-XII intact Medical Decision Making Lab Data 11/09/24 00:39 11/09/24 00:39 Labs: Lab Results 11/09/24 Range/Units 00:39 WBC 10.1 (4.8-10.8) X10*3/uL RBC 4.63 (4.20-5.50) X10*6/uL Hgb 12.6 (12.0-16.0) g/dl Hct 40.0 (37.0-47.0) % MCV 86.4 (80.0-98.0) fL MCH 27.2 (27.0-33.0) pg MCHC 31.5 (31.0-35.0) g/dl RDW 14.6 (11.0-16.0) % Plt Count 226 D (160-400) X10*3/uL MPV 10.4 (9.4-12.3) fL Immature Gran % (Auto) 0.4 (0.0-0.4) % Neut % (Auto) 77.7 H (45-73) % Lymph % (Auto) 13.6 L (20-40) % Beaver % (Auto) 6.5 (2-11) % Eos % (Auto) 1.5 (0-4) % Baso % (Auto) 0.3 (0-2) % Lymph # (Auto) 1.4 (1.2-4.9) X10*3/uL Beaver # (Auto) 0.7 (0.1-1.2) X10*3/uL Eos # (Auto) 0.2 (0.0-0.4) X10*3/uL Baso # (Auto) 0.0 (0.0-0.2) X10*3/uL Abs Immat Gran (auto) 0.04 H (0.00-0.03) X10*3/uL Absolute Neuts (auto) 7.9 (2.0-8.3) x10*3/uL Absolute Nucleated RBC 0.000 (0.0-0.012) X10*3/uL Nucleated RBC % (auto) 0.0 (0.0-0.2) /100WBC PT 11.7 (10.9-12.4) SEC INR 1.0 (0.9-1.1) APTT 32.7 (26.0-36.8) SEC Sodium 145 (135-145) mmol/L Potassium 4.3 (3.3-5.1) mmol/L Chloride 106 (96-108) mmol/L Carbon Dioxide 29 (22-29) mmol/L Anion Gap 14 (12-20) BUN 19 H (9-16) mg/dL Creatinine 0.78 (0.5-1.4) mg/dL Estim Creat Clear Calc 58.4 Estimated GFR > 60 Random Glucose 104 (60-115) mg/dL Calcium 9.0 (8.4-10.2) mg/dL Total Bilirubin 0.4 (0.0-1.0) mg/dL AST 26 (5-31) U/L ALT 16 (0-31) U/L Alkaline Phosphatase 95 (39-117) U/L Total Protein 6.9 (6.5-8.0) g/dL Albumin 4.0 (3.5-5.0) g/dL Discharge Plan Discharge Clinical Impression: Palpable purpura Patient Disposition: Home, Self-Care Instructions: Henoch-Schonlein Purpura (ED) Additional Instructions: Follow up with patrol sergeant for further evaluation and treatment Report if any worsening of the rash/blood in the urine/abdominal pain/joint involvement Keep your legs elevated Do not take any blood thinners/aspirin Prescriptions: No Action sennosides [senna] 8.6 mg tablet 8.6 mg PO DAILY Qty: 90 4RF (DME) gloves Large See Rx Instructions .Route .MEDSUPPLY Qty: 1 0RF Rx Instructions: As directed (DME) disposable bed pads See Rx Instructions .Route .MEDSUPPLY Qty: 1 0RF Rx Instructions: As directed 4 per day loratadine 10 mg tablet 10 mg PO DAILY PRN (Reason: allergy symptoms) 90 Days Qty: 90 1RF (DME) miscellaneous medical supply Misc 0 .Route Qty: 1 0RF Rx Instructions: Power Lift Chair - As directed - to use indefinatly albuterol sulfate 2.5 mg /3 mL (0.083 %) solution for nebulization 2.5 mg continuous nebulization QID PRN (Reason: shortness of breath or wheezing) Qty: 90 0RF candesartan 32 mg tablet 32 mg PO DAILY Qty: 90 1RF lactulose 20 gram/30 mL solution 20 g PO DAILY PRN (Reason: constipation) Qty: 420 0RF atorvastatin 80 mg tablet 80 mg PO BEDTIME 90 Days Qty: 90 1RF (DME) Nebulizer machine See Rx Instructions .Route .MEDSUPPLY Qty: 1 0RF Rx Instructions: As directed (DME) Nebulizer machine See Rx Instructions .Route .MEDSUPPLY Qty: 1 0RF Rx Instructions: As directed mirtazapine 15 mg tablet 15 mg PO BEDTIME 90 Days Qty: 90 0RF acetaminophen 650 mg tablet extended release 650 mg PO Q8H PRN (Reason: pain) 30 Days Qty: 90 3RF mupirocin 2 % ointment 1 appl topical TID Qty: 50 2RF fluticasone propion-salmeterol [Advair HFA] 115-21 mcg/actuation HFA aerosol inhaler 2 puff inhalation BID Qty: 12 3RF Rx Instructions: administer with spacer cholecalciferol (vitamin D3) 25 mcg (1,000 unit) capsule 25 mcg PO DAILY 90 Days Qty: 90 3RF lubiprostone [Amitiza] 24 mcg capsule 24 mcg PO BID Qty: 60 1RF oxycodone 15 mg tablet 15 mg PO BEDTIME PRN (Reason: severe pain) 7 Days Qty: 7 0RF Rx Instructions: Partial Fill upon patient request. zolpidem 10 mg tablet 10 mg PO BEDTIME PRN (Reason: sleep) 30 Days Qty: 30 2RF tramadol 50 mg tablet 50 mg PO BID PRN (Reason: pain) 30 Days Qty: 60 0RF lidocaine 5 % ointment 1 appl topical TID PRN (Reason: pain) Qty: 50 1RF calcium carbonate-vit D3-min 600 mg calcium- 200 unit tablet 1 tab PO DAILY mineral oil [Fleet Mineral Oil] Enema 133 ml MD DAILY PRN (Reason: constipation) Qty: 266 0RF Rx Instructions: discard any unused portion (DME) Aerochamber MV Spacer See Rx Instructions .Route Qty: 1 0RF Rx Instructions: As directed fluticasone propionate [Flovent HFA] 110 mcg/actuation HFA aerosol inhaler 2 puff inhalation BID 30 Days Qty: 12 5RF doxycycline hyclate 100 mg capsule 100 mg PO BID 10 Days Qty: 20 0RF prednisone 20 mg tablet 20 mg PO DAILY 3 Days Qty: 3 0RF pregabalin 225 mg capsule 225 mg PO BID Qty: 60 0RF folic acid 1 mg tablet 1 mg PO DAILY Qty: 90 1RF alclometasone 0.05 % cream topical Referrals: Colin Freeman MD [Physician] - 3 days Print Language: Kinyarwanda
[2024-11-09 00:09] VITALS: BP 148/85; PULSE 73; RESP 18; TEMP 36.4; O2SAT 93; BMI 36.1
[2024-11-09 00:43] LABS: MANUAL DIFF FLAG NO
[2024-11-09 00:45] LABS: Basophils Percent Auto 0.3 % (0-2); Eosinophils Absolute Auto 0.2 X10*3/uL (0.0-0.4); Eosinophils Percent Auto 1.5 % (0-4); Hemoglobin 12.6 g/dl (12.0-16.0); Imm Gran Abs Auto 0.04 X10*3/uL (0.00-0.03); Imm Gran Pct Auto 0.4 % (0.0-0.4); Lymphocytes Absolute Auto 1.4 X10*3/uL (1.2-4.9); Lymphocytes Percent Auto 13.6 % (20-40); Mean Corpuscular HGB Conc 31.5 g/dl (31.0-35.0); Mean Corpuscular Hemoglobin 27.2 pg (27.0-33.0); Mean Corpuscular Volume 86.4 fL (80.0-98.0); Mean Platelet Volume 10.4 fL (9.4-12.3); Monocytes Absolute Auto 0.7 X10*3/uL (0.1-1.2); Monocytes Percent Auto 6.5 % (2-11); Neutrophils Absolute Auto 7.9 x10*3/uL (2.0-8.3); Neutrophils Percent Auto 77.7 % (45-73); Platelet Count 226 X10*3/uL (160-400); Red Blood Count 4.63 X10*6/uL (4.20-5.50); Red Cell Distribution Width 14.6 % (11.0-16.0); White Blood Count 10.1 X10*3/uL (4.8-10.8)
[2024-11-09 00:49] LABS: Prothrombin Time 11.7 SEC (10.9-12.4)
[2024-11-09 00:51] LABS: Partial Thromboplastin Time 32.7 SEC (26.0-36.8)
[2024-11-09 00:58] LABS: Alanine Aminotransferase 16 U/L (0-31); Alkaline Phosphatase 95 U/L (39-117); Anion Gap 14 (12-20); Aspartate Amino Transferase 26 U/L (5-31); Bilirubin Total 0.4 mg/dL (0.0-1.0); Blood Urea Nitrogen 19 mg/dL (9-16); Carbon Dioxide 29 mmol/L (22-29); Chloride 106 mmol/L (96-108); Creatinine Clr Calc Pharmacy 58.4; Estimated Glomerular Filt Rate > 60; Glucose Random 104 mg/dL (60-115); Potassium 4.3 mmol/L (3.3-5.1); Sodium 145 mmol/L (135-145); Total Protein 6.9 g/dL (6.5-8.0)
[2024-11-09 01:15] VITALS: BP 148/85; PULSE 73; RESP 18; TEMP 36.4; O2SAT 93
== END 2024-11-09 01:35 | disposition home or self-care (01) ==
PROVIDERS: Emergency Provider Internal Medicine; PCP Internal Medicine
DX: D69.2 Other nonthrombocytopenic purpura (principal); R60.0 Localized edema; M79.605 Pain in left leg; M79.604 Pain in right leg; Z79.899 Other long term (current) drug therapy
CPT/HCPCS: 36415; 80053; 85025; 85610; 85730; 99283

== ENCOUNTER 2024-11-23 15:01 | Outpatient (AMB) | payer OTHER, SELFPAY ==
[2024-11-23 15:03] VITALS: BP 128/70; PULSE 73; O2SAT 96; BMI 35.9
--- NOTE | 2024-11-23 15:03 | A.OFFVIS_ITS ---
Vital Signs 11/23/24 15:03 Height 5 ft 1 in Weight 190 lb 4.143 oz BMI 35.9 BP 128/70 Blood Pressure Location Lt brachial Position Sitting Pulse 73 Pulse Source Pulse Oximeter Pulse Oximetry (%) 96 Oxygen Delivery Method Room Air Intake Visit Reasons: joint pain Intake Note: Patient presents today for joint pain. Patient complains of bilateral knee pain for the last 2 months. She also complains of low back pain. Education Department Registrar Services: Education Department Registrar Offered & Declined Accompanied by: Daughter Allergies Penicillins Allergy (Intermediate, Verified 11/23/24 15:08) Hives oxaprozin [From Daypro] Allergy (Unknown, Verified 11/23/24 15:08) RASH hydroxychloroquine Adverse Reaction (Intermediate, Verified 11/23/24 15:08) Abdominal Pain budesonide [Symbicort] Adverse Reaction (Unknown, Verified 11/23/24 15:08) nausea and vomiting Medication List - Last Reconciled 11/23/24 by Marilyn Mireles MD acetaminophen ER 650 mg PO Q8H PRN 30 days Advair HFA 115-21 mcg/actuation (fluticasone propion-salmeterol) 2 puffs inhalation BID NS albuterol sulfate 2.5 mg (3 mL) continuous nebulization QID PRN alclometasone 0.05% appl topical atorvastatin 80 mg PO BEDTIME 90 days calcium carbonate-vit D3-min 600 mg calcium- 200 unit 1 tab PO DAILY candesartan 32 mg PO DAILY cholecalciferol (vitamin D3) 25 mcg PO DAILY 90 days [disposable bed pads As directed 4 per day ] doxycycline hyclate 100 mg PO BID 10 days fluticasone propionate 110 mcg/actuation (Flovent HFA) 2 puffs inhalation BID 30 days folic acid 1 mg PO DAILY [gloves As directed] inhalational spacing device (Aerochamber MV spacer) As directed lactulose 20 grams (30 mL) PO DAILY PRN lidocaine 5% 1 appl topical TID PRN loratadine 10 mg PO DAILY PRN 90 days lubiprostone (Amitiza) 24 mcg PO BID mineral oil (Fleet Mineral Oil enema) 133 mL [place] DAILY PRN mirtazapine 15 mg PO BEDTIME 90 days miscellaneous medical supply Power Lift Chair - As directed - to use indefinatly mupirocin 2% 1 appl topical TID [Nebulizer machine As directed] [Nebulizer machine As directed] oxycodone 15 mg PO BEDTIME PRN 7 days prednisone 20 mg PO DAILY 5 days pregabalin 225 mg PO BID sennosides (senna) 8.6 mg PO DAILY tramadol 50 mg PO BID PRN 30 days walker (Ultra-Light Rollator misc) As directed [Walker with seat As directed] zolpidem 10 mg PO BEDTIME PRN 30 days HPI Comments Details: Patient is a 79-year-old female with asthma, hyperlipidemia, hypertension, ve nous stasis complicated by ulcers, MGUS, AFib, GERD, anxiety, paroxysmal atrial fibrillation, polyarticular osteoarthritis and osteoporosis here today for follow up Interval History: Patient last seen 05/11/[address] Bowens. At that time she was following up for the evaluation of joint pain. She was complaining of left outer buttock pain which was consistent with trochanteric bursitis. Exercises were given. Today, She reports improvement of her left trochanteric bursitis Today complaining of left knee pain pain is worse at night damon after a long day of walking has been using tylenol and tramadol at home for the pain Rheumatologic History: OA Osteoporosis Current Rheumatology Medication(s): [facility] Medical History Constipation Osteoporosis Allergic rhinitis Insomnia Osteoarthritis Obesity (BMI 30-39.9) Depression Anxiety Vitamin D deficiency GERD without esophagitis Asthma Paroxysmal atrial fibrillation Pure hypercholesterolemia Benign essential hypertension PAF (paroxysmal atrial fibrillation) Surgical History History of colonoscopy Family History Father CVD (cardiovascular disease) Stroke Mother Medical history unknown Social History Housing: Apartment Alcohol intake: never Patient Tobacco Use Status: Never used Tobacco e-Cigarette/Vaping Use: Never Used Second Hand Smoke Exposure: Yes service: No Current occupational status: disabled Cognitive needs: No Hearing needs: No Vision needs: Yes (glasses) Review of Systems Const Details: Review of Systems Constitutional: Denies fever, chills, weight loss ENT: Denies vision changes, eye pain or eye redness, dental caries, dry mouth GI: Denies nausea, vomiting, diarrhea, abdominal pain, change in BM Pulm: Denies SOB, DESAI, hemoptysis, wheezing Cards: Denies chest pain, palpitations Skin: Denies Raynaud's, rash, nail changes, photosensitivity, BOX TOE CUTTER: Denies headaches, weakness, paresthesias, recurrent falls MSK: as per HPI All other systems reviewed and are unremarkable except noted above Physical Exam Vital Signs: Last Vital Signs Pulse 73 11/23/24 15:03 BP 128/70 11/23/24 15:03 Pulse Ox 96 11/23/24 15:03 Oxygen Delivery Method Room Air 11/23/24 15:03 BMI result Body Mass Index 35.9 Vital signs reviewed Physical Examination CONSTITUITIONAL Patient alert and cooperative. Well appearing and in no apparent painful distress HEENT Conjunctiva and sclera clear. ?Pupils equal round and reactive to light. ?No lymphadenopathy. ? CHEST/RESPIRATORY SYSTEM Normal respiratory effort and able to speak in complete sentences. ?Clear to auscultation bilaterally. ?No crackles, rales, rhonchi, wheezes heard. CARDIAC SYSTEM Regular rate and rhythm. ?S1 and S2 heard no murmurs. ?Radial pulses intact bilaterally MSK Hands: ?Able to make a fist. No synovitis noted to the MCPs, PIPs or DIPs. ?No tenderness to palpation of these joints. Herbeden's nodes Wrists: ?Full range of motion at the wrists without pain. ?No tenderness to palpation or synovitis noted to the wrists. Elbows: Full range of motion without pain. No tenderness, weakness, swelling, increased warmth or erythema. Shoulders: Full range of active range of motion without pain. No tenderness, weakness, swelling, increased warmth or erythema. Knees: ?Full range of motion. ?No swelling, increased warmth or erythema. Crepitations bilaterally. TTP of the joint line Ankles: Full range of motion. ?No tenderness, swelling, increased warmth or erythema.? Feet: ?Negative squeeze test. ?No tenderness to palpation or swelling of the MTPs. Tender points:?No tenderness to palpation of the bilateral trapezius, supraspinatus, greater trochanters, anterior costochondral junctions, bilateral gluteal areas, bilateral suboccipital muscle insertions SKIN Skin intact without rashes. lipodermatosclerotic changes to bilateral legs. Results Reviewed Results Reviewed: Laboratory Tests 06/17/24 11/09/24 15:40 00:39 WBC 10.1 RBC 4.63 Hgb 12.6 Hct 40.0 Plt Count 226 D ESR 11 Sodium 145 Potassium 4.3 Chloride 106 Carbon Dioxide 29 BUN 19 H Creatinine 0.78 AST 26 ALT 16 Alkaline Phosphatase 95 Laboratory Tests 05/23/23 06/17/24 11:14 15:40 Rheumatoid Factor < 13.0 Cycl Citrul Peptide IgG <16 ADONIS Screen NEGATIVE DEXA 04/2024 FINDINGS: AP SPINE L1-L4: Current: BMD 1.007 g/cm2, Z-score -0.2, T-score -1.4, osteopenia, 2.1% increase from previous, 8.3% increase from baseline (<5% change is not significant). Prior: BMD 0.986 g/cm2. Baseline: BMD 0.930 g/cm2. LEFT FEMUR, NECK: Current: BMD 0.595 g/cm2, Z-score -1.6, T-score -3.2, osteoporosis. Prior: BMD 0.783 g/cm2. Baseline: BMD 0.815 g/cm2. LEFT FEMUR, TOTAL: Current: BMD 0.621 g/cm2, Z-score -1.6, T-score -3.1, osteoporosis, 23.2% decrease from previous, 24.4% decrease from baseline (<5% change is not significant). Prior: BMD 0.809 g/cm2. Baseline: BMD 0.821 g/cm2. Assessment & Plan Assessment & Plan (1) Bilateral primary osteoarthritis of knee: Code(s): M17.0 - Bilateral primary osteoarthritis of knee Category: Medical Plan: #Bilateral knee OA Patient is a 79-year-old female with polyarticular osteoarthritis here today for follow up. Patient complaining of bilateral knee pain left worse than right. This is likely secondary to knee osteoarthritis. Plan - Topical diclofenac 1% qid - XR bilateral knees - RTC 4 months - If no improvement will eval for steroid injection (2) Osteoporosis: Comment: DEXA 04/2024: AP Spine -1.4, Left femur neck -3.2, Left femur total -3.1 Code(s): M81.0 - Age-related osteoporosis without current pathological fracture Category: Medical Qualifiers: Osteoporosis type: unspecified Presence of current pathological fracture: without current pathological fracture Qualified Code(s): M81.0 - Age- related osteoporosis without current pathological fracture Plan: #Osteoporosis Patient with osteoporosis of the left hip. Currently does not want to take any more medications. We will reassess willingness to do medications at the next visit. Plan I spent 20 minutes reviewing the record and labs, taking a history, examining the patient, discussing the treatment plan, ordering diagnostic work up and documenting in the medical record Orders: Orders XR knee RT 3V Today M17.0 - Bilateral primary osteoarthritis of knee XR knee LT 3V Today M17.0 - Bilateral primary osteoarthritis of knee Medications: New diclofenac sodium 1% (Arthritis Pain (diclofenac)) apply to bilateral knees 4 times a day 4 grams topical QID 100 grams 4RF M17.0 - Bilateral primary osteoarthritis of knee Coding Level of Care Code Est Pt Level 3 (87515) Diagnoses Bilateral primary osteoarthritis of knee M17.0 Osteoporosis without current pathological fracture, unspecified osteoporosis type M81.0 Osteoporosis type: unspecified Presence of current pathological fracture: without current pathological fracture
--- OUTSIDE RECORDS SUMMARY | 2024-11-23 15:04 | XMS_ITS | Clinical Summary ---
Author Organization [facility] Address [address] [place] [address] Care Team Providers Care General Assembler Installer Name Role Phone Milton Ackerman MD Primary Care Provider [phone] Medications Medication Sig Dispensed Refills Start Date [...] age to complete this topic Care Teams General Assembler Installer Relationship Specialty Start Date End Date Milton Ackerman MD [address] [place] [address] [address] [facility] [place], [place] [id number] PCP - General Internal Medicine 02/18/23
--- OUTSIDE RECORDS SUMMARY | 2024-11-23 15:04 | XMS_ITS | Referral Summary ---
Author Organization [facility] Address [address] [place] [address] Care Team Providers Care Farm Contractor Buyer Name Role Phone Tyron Milton Primary Care Provider [phone] Allergies Active Allergy Reactions Criticality Noted Date [...] Treatment Not on file Insurance [place] [id number] [facility] Care Teams Farm Contractor Buyer Relationship Specialty Start Date End Date Milton Ackerman [address] [place] [address] [place] [address] PCP - General Internal Medicine 01/20/24
--- OUTSIDE RECORDS SUMMARY | 2024-11-23 15:04 | XMS_ITS | Clinical Summary ---
Author Organization [facility] Address [address] [place] [address] Care Team Providers Care Bronzer Name Role Phone Tyron Milton Primary Care Provider [phone] Allergies Active Allergy Reactions Criticality Noted Date [...] patient's age to complete this topic Insurance [facility] Care Teams Bronzer Relationship Specialty Start Date End Date Milton Ackerman [address] [place] [address] dr Iram Walden, [place]GEL[place] [id number] PCP - General Internal Medicine 01/20/24
--- OUTSIDE RECORDS SUMMARY | 2024-11-23 15:04 | XMS_ITS | Clinical Summary ---
Author Organization [employer] Address [address] [facility] [address] [place] [address] Care Team Providers Care Rubber Belt Splicer Name Role Phone Unavailable Primary Care Provider [...]
== END 2024-11-23 15:36 | disposition home or self-care (01) ==
LOC: HO.RHE 15:01
PROVIDERS: PCP Internal Medicine; Visit Provider Student in an Organized Health Care Education/Training Program
DX: M17.0 Bilateral primary osteoarthritis of knee (principal); M81.0 Age-related osteoporosis without current pathological fracture
CPT/HCPCS: 99213

== ENCOUNTER → 2024-11-23 15:01 | Outpatient (BNVA) | payer OTHER, SELFPAY | PROVIDERS: PCP Internal Medicine; Visit Provider Student in an Organized Health Care Education/Training Program | DX: M17.0 Bilateral primary osteoarthritis of knee (principal); M81.0 Age-related osteoporosis without current pathological fracture | CPT/HCPCS: 99212 ==

== ENCOUNTER → 2024-11-24 10:55 | Outpatient (REF) | payer OTHER, SELFPAY ==
--- NOTE | ~2024-11-24 | XR_ITS ---
CLINICAL HISTORY: M17.0 - Bilateral primary osteoarthritis of knee Right knee three views Comparison: None Findings: No acute fracture or dislocation noted. No significant joint effusion identified. Mild degenerative change with joint space loss. No soft tissue foreign body. Impression: No acute bony abnormality Left knee three views Comparison: None Findings: No acute fracture or dislocation noted. No significant joint effusion identified. Mild degenerative change with joint space loss. No soft tissue foreign body. Impression: No acute bony abnormality This document has been electronically signed by: Darnell Asencio MD on 11/24/2024 19:14:40
--- NOTE | 2024-11-24 10:59 | CA_ITS ---
Transthoracic Echocardiogram Amended Patient (Last, First, Middle): Saira Alaniz E Gender: Female Date of : 1945 Age: 79 Procedure Date: 11/24/2024 Procedure Type: Transthoracic Echocardiogram Location: OP Height: 154.94 cm Weight: 83.46 kg BSA: 1.82 m2 Heart Rate: bpm BP: 124 / 80 mmHg Musical Instrument Maker: Referring MD: Milton Ackerman MD Emergency Specialist: Tramaine Ware MD Symptoms: R06.09 - Other forms of dyspnea Study Quality: Good ECG Rhythm: Sinus Conclusions: - 1. Normal LV ejection fraction of 60-65% with impaired relaxation filling pattern 2. Normal cardiac valvular Dopplers 3. Normal RV systolic pressure 4. No gross pericardial effusion Findings Left Ventricle Normal left ventricular size, thickness, and systolic function. The visually estimated ejection fraction is between 60-65%. Spectral Doppler is indicative of an impaired relaxation filling pattern. E/E prime ratio is between 8 and 15 consistent with indeterminate filling pressures. Right Ventricle Normal right ventricular cavity size and systolic function. Atria Both atria are normal in size. There is lipomatous hypertrophy of the interatrial septum. There is no evidence of interatrial shunt. Aortic Valve Normal aortic valve structure and function. There is no aortic valve stenosis. There is no aortic valve regurgitation. Mitral Valve Normal mitral valve structure and function. There is mild mitral annular calcification. There is trace mitral valve regurgitation. There is no mitral valve stenosis. Pulmonic Valve The pulmonic valve is likely normal. Tricuspid Valve Normal tricuspid valve structure. There is trace tricuspid valve regurgitation. The right ventricular systolic pressure is normal. The right ventricular systolic pressure is 23 mmHg. Normal right atrial pressure. There is no evidence of pulmonary hypertension. Great Vessels All visible segments of the aorta are normal in size. There is no dilatation of the ascending aorta. Venous The inferior vena cava is normal in size and collapses greater than 50% with inspiration. Pericardium/Pleural There is no evidence of pericardial effusion. Prior Study Comparison No significant change compared to prior study. Measurements 2D Linear Measurements IVSd: 1.11 0.6-0.9/0.6-1.0 cm LVIDd: 3.96 3.9-5.3/4.2-5.9 cm LVIDd Index: 2.18 2.4-3.2/2.2-3.1 cm/m2 LVIDs: 2.59 2.0-3.6 cm LVPWd: 1.13 0.7-1.1 cm Ao Root: 3.00 2.1-3.5 cm LA Diam: 3.10 2.7-3.8/3.0-4.0 cm LAIDs Index: 1.70 1.5-2.3 cm/m2 LV Mass: 183.28 67-162/88-224 g LV Mass Index: 100.70 43-95/49-115 g/m2 LVOT Diam: 2.20 3.0+(-)1.3 cm 2D Volumes LA Vol: 28.10 Mitral Valve MV Pk E: 0.65 MV PK A: 0.95 MV Decel Time: 252.00 E/A: 0.70 E'Lateral: 5.98 E'Medial: 4.68 E/E' Med: 13.80 E/E' Lat: 10.80 PHT: 74.00 MVA PHT: 2.97 Decel [place]: 2.57 LVOT LVOT Pk Patric: 0.87 LVOT Mn Patric: 0.55 LVOT VTI: 0.19 LVOT Pk Grad: 3.00 LVOT Mn Grad: 1.00 LVOT Diam: 2.20 LVOT Area: 3.80 Diastolic Function MV Pk E: 0.65 MV Pk A: 0.95 E/A: 0.70 E'Medial: 4.68 E/E' Med: 13.80 E' Laterial: 5.98 E/E' Lat: 10.80 Right Ventricle TAPSE (mm): 28.00 TVS' Patric: 11.00 Tricuspid Valve TR Pk Patric: 2.22 TR Pk Grad: 20.00 RA Press: 3.00 RVSP: 23.00 Great Vessels Aorta Ao Root-2D: 3.00 2.0-3.7 cm Ao Asc: 3.40 2.1-3.4 cm Pulmonary Valve PV Pk Patric: 1.05 Peak PV Grad: 4.00 Updated in Other Vendor System with Status of Final Tramaine Ware MD electronically signed on 11/25/2024 4:39:24 PM with status of Final
--- OUTSIDE RECORDS SUMMARY | 2024-11-24 12:24 | XMS_ITS | Clinical Summary ---
Author Organization [employer] Address [address] [place] [address] Care Team Providers Care Annual Greenhouse Manager Name Role Phone Unavailable Primary Care [...]
--- OUTSIDE RECORDS SUMMARY | 2024-11-24 12:24 | XMS_ITS | Referral Summary ---
Author Organization [facility] Address [address] [place] [address] Care Team Providers Care Papeterie Table Assembler Name Role Phone Tyron Milton Primary Care Provider Allergies Active Allergy Reactions Criticality Noted Date [...] Treatment Not on file Insurance ANGELICA WALDEN [id number] [facility] Care Teams Papeterie Table Assembler Relationship Specialty Start Date End Date Milton Ackerman [address] [place] [address] [place] [address] PCP - General Internal Medicine 01/20/24
--- OUTSIDE RECORDS SUMMARY | 2024-11-24 12:24 | XMS_ITS | Clinical Summary ---
Author Organization [facility] Address [address] [place] [address] Care Team Providers Care Park Worker Name Role Phone Tyron Milton Primary Care Provider [phone] Allergies Active Allergy Reactions Criticality Noted Date [...] patient's age to complete this topic Insurance [facility] Care Teams Park Worker Relationship Specialty Start Date End Date Milton Ackerman [address] [place] [address] dr Iram Walden, ANGELICA [id number] PCP - General Internal Medicine 01/20/24
== END ==
LOC: HO.CARD 10:55
PROVIDERS: Absent Provider Student in an Organized Health Care Education/Training Program; PCP Internal Medicine; Visit Provider Internal Medicine
DX: R06.09 Other forms of dyspnea (principal); M17.0 Bilateral primary osteoarthritis of knee
CPT/HCPCS: 73562; 93306

== ENCOUNTER → 2024-11-24 10:59 | Outpatient (BNV) | payer OTHER, SELFPAY | PROVIDERS: Absent Provider Student in an Organized Health Care Education/Training Program; PCP Internal Medicine; Visit Provider Internal Medicine Cardiovascular Disease | DX: Q21.19 Other specified atrial septal defect (principal); I34.81 Nonrheumatic mitral (valve) annulus calcification | CPT/HCPCS: 93306 ==

== ENCOUNTER → 2024-11-24 11:45 | Outpatient (BNV) | payer OTHER, SELFPAY | PROVIDERS: Absent Provider Student in an Organized Health Care Education/Training Program; PCP Internal Medicine; Visit Provider Radiology Diagnostic Radiology | DX: M17.0 Bilateral primary osteoarthritis of knee (principal) | CPT/HCPCS: 73562 ==

== ENCOUNTER → 2024-12-10 14:45 | Outpatient (BNV) | payer OTHER, SELFPAY | PROVIDERS: PCP Internal Medicine; Referring Provider Internal Medicine; Visit Provider Internal Medicine | DX: L97.329 Non-pressure chronic ulcer of left ankle with unspecified severity (principal) | CPT/HCPCS: 99203 ==

== ENCOUNTER 2024-12-15 10:14 | Outpatient (AMB) | payer OTHER, SELFPAY ==
--- NOTE | 2024-12-15 10:18 | MHC.OFFWIV ---
Intake Vital Signs 12/15/24 10:20 Weight 184 lb BP 120/80 Blood Pressure Location Lt brachial Position Sitting Pulse 83 Pulse Source Pulse Oximeter Pulse Oximetry (%) 94 Oxygen Delivery Method Room Air Intake Visit Reasons: EP-soreness in both legs Intake Note: Patient here for loss of appetite, last BM 4-5 days ago, leg pain and wounds on feet opening back up Patient Tobacco Use Status: Never used Tobacco Allergies Penicillins Allergy (Intermediate, Verified 12/15/24 10:22) Hives oxaprozin [From Daypro] Allergy (Unknown, Verified 12/15/24 10:22) RASH hydroxychloroquine Adverse Reaction (Intermediate, Verified 12/15/24 10:22) Abdominal Pain budesonide [Symbicort] Adverse Reaction (Unknown, Verified 12/15/24 10:22) nausea and vomiting Do you need a note to return to daycare/school/sports/work: No HPI HPI Comments 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 History of Present Illness - The patient is a 79-year-old female presenting with her daughter who is interpreting for her with issues about management of chronic venous ulcers and persistent pain as well as constipation. - The ulcers have been present for about three years, originating during a travel scenario, with continuous occurrences despite various specialty consultations. - Dermatological, Rheum and Vascualr evaluation diagnosed venous stasis dermatitis with ulcers, and it was noted that there is a lack of underlying autoimmune disease. - Pain is significant and resistant to current pharmacological interventions, including Tramadol and tylenol. Compression therapy was briefly trialed but not well-tolerated due to pain on removal. - Persistent severe pain has impacted her daily functioning, contributing to a decrease in appetite and signs of depression. - The patient has seen multiple specialists, including a blood disorders evaluation , showing no significant contributory findings. - patient's daughter tells me her mom has not eaten anything in 4 days because she is constipated. Constipation is a chronic issue, which is inadequately resolved with current regimens such as Senna, and 2 enemas. She states she has used lactulose in the past but does not have any. Physical Exam General: Cooperative, healthy appearing, comfortable, no acute distress and well developed Orientation: Patient oriented x3 Limitations: No limitations Head: Normal to inspection Ears: Hearing grossly normal bilaterally Nose: Normal External nose present Face and sinus: Normal facial exam Eyes: Appearance normal, both eyes and all related structures Neck: Normal visual inspection and Yes full ROM Respiratory: Normal respiratory effort and able to speak in complete sentences. Skin: Bilateral 1cm round stage 2/3 ulcers on heels with granulation tissue with clear ointment over it Neuro: Patient oriented x3 Extremities: Normal to inspection except for above PFSH Medical History (Updated 12/10/24 @ 17:50 by Anahi Staton MD) Bilateral primary osteoarthritis of knee Constipation Osteoporosis Allergic rhinitis Insomnia Osteoarthritis Obesity (BMI 30-39.9) Depression Anxiety Vitamin D deficiency GERD without esophagitis Asthma Paroxysmal atrial fibrillation Pure hypercholesterolemia Benign essential hypertension PAF (paroxysmal atrial fibrillation) Surgical History History of colonoscopy Family History (Updated 12/10/24 @ 15:01 by Bertha Ozuna) Father CVD (cardiovascular disease) Stroke Mother Medical history unknown Brother Bone cancer Sister Cancer of mouth Social History (Updated 12/10/24 @ 14:59 by Bertha Ozuna) Housing: Apartment Alcohol intake: never Patient Tobacco Use Status: Never used Tobacco e-Cigarette/Vaping Use: Never Used Second Hand Smoke Exposure: Yes service: No Current occupational status: disabled Cognitive needs: No Hearing needs: No Vision needs: Yes (glasses) Review of Systems Const All systems reviewed & are unremarkable except as noted in HPI and below Physical Exam Vital Signs: Last Vital Signs Pulse 83 12/15/24 10:20 BP 120/80 12/15/24 10:20 Pulse Ox 94 12/15/24 10:20 Oxygen Delivery Method Room Air 12/15/24 10:20 Assessment & Plan Assessment & Plan (1) Constipation: Code(s): K59.00 - Constipation, unspecified Qualifiers: Constipation type: unspecified constipation type Qualified Code(s): K59.00 - Constipation, unspecified Plan: Persistent constipation management will include lactulose, enemas, and dietary fiber enhancement. I have refilled her prescription for lactulose. Recommended if she does not have a bowel movement and it is still not eating in the next 3-4 days that she follow up with her PCP or go to the emergency department. Today, her vital signs are stable and she is well-appearing. Patient was informed and verbally consented to the use of an ambient scribe for clinic note documentation during this visit. (2) Venous stasis ulcers of both lower extremities: Code(s): I83.019 - Varicose veins of right lower extremity with ulcer of unspecified site; I83.029 - Varicose veins of left lower extremity with ulcer of unspecified site; L97.919 - Non-pressure chronic ulcer of unspecified part of right lower leg with unspecified severity; L97.929 - Non-pressure chronic ulcer of unspecified part of left lower leg with unspecified severity Plan: The patient will continue using mupirocin cream to prevent infection in chronic venous ulcers while awaiting possible specialized wound care referral. I advised I would reach out to her PCP to see if he felt it was appropriate and they should hear back from his office with an answer in the next few days. An NSAID such as naproxen will be introduced cautiously for pain management. Her pain management regimen requires optimization in consultation with primary care, ensuring effective relief of symptoms using her current medications, oxycodone and tramadol, while considering new adjunct options. Medications: New naproxen 500 mg PO Q12H PRN 20 tabs 0RF pain Refilled mineral oil (Fleet Mineral Oil enema) discard any unused portion 133 mL KS DAILY PRN 266 mL 0RF constipation lactulose 20 grams (30 mL) PO DAILY PRN 420 mL 0RF constipation Coding Level of Care Code Est Pt Level 4 (69150) Diagnoses Constipation, unspecified constipation type K59.00 Constipation type: unspecified constipation type Venous stasis ulcers of both lower extremities I83.019; I83.029; L97.919; L97.929
[2024-12-15 10:20] VITALS: BP 120/80; PULSE 83; O2SAT 94
--- OUTSIDE RECORDS SUMMARY | 2024-12-15 11:45 | XMS_ITS | Referral Summary ---
Author Organization [facility] Address [address] [place] [address] Care Team Providers Care Professional Programmer Analyst Name Role Phone Tyron Milton Primary Care Provider [phone] Allergies Active Allergy Reactions Criticality Noted Date [...] Treatment Not on file Insurance ANGELICA WALDEN [id number] [facility] Care Teams Professional Programmer Analyst Relationship Specialty Start Date End Date Milton Ackerman [address] [place] [address] [place] [address] PCP - General Internal Medicine 01/20/24
== END 2024-12-15 10:56 | disposition home or self-care (01) ==
PROVIDERS: PCP Internal Medicine; Visit Provider Physician Assistant
DX: K59.00 Constipation, unspecified (principal); I83.019 Varicose veins of right lower extremity with ulcer of unspecified site; I83.029 Varicose veins of left lower extremity with ulcer of unspecified site; L97.919 Non-pressure chronic ulcer of unspecified part of right lower leg with unspecified severity; L97.929 Non-pressure chronic ulcer of unspecified part of left lower leg with unspecified severity

== ENCOUNTER → 2024-12-15 10:14 | Outpatient (BNVA) | payer OTHER, SELFPAY | PROVIDERS: PCP Internal Medicine; Visit Provider Physician Assistant | DX: K59.00 Constipation, unspecified (principal); I83.019 Varicose veins of right lower extremity with ulcer of unspecified site; I83.029 Varicose veins of left lower extremity with ulcer of unspecified site; L97.919 Non-pressure chronic ulcer of unspecified part of right lower leg with unspecified severity; L97.929 Non-pressure chronic ulcer of unspecified part of left lower leg with unspecified severity | CPT/HCPCS: 99212 ==

== ENCOUNTER 2024-12-18 13:03 | Outpatient (AMB) | payer OTHER, SELFPAY ==
--- OUTSIDE RECORDS SUMMARY | 2024-12-18 13:06 | XMS_ITS | Referral Summary ---
Author Organization [facility] Address [address] [place] [address] Care Team Providers Care Charge Histotechnologist Name Role Phone Tyron Milton Primary Care Provider [phone] Allergies Active Allergy Reactions Criticality Noted Date [...] of Treatment Not on file Insurance ANGELICA AWLDEN [id number] [facility] Care Teams Charge Histotechnologist Relationship Specialty Start Date End Date Milton Ackerman [address] [place] [address] [place] [address] PCP - General Internal Medicine 01/20/24
[2024-12-18 13:56] VITALS: BP 108/76; PULSE 69; RESP 16; TEMP 36.6; O2SAT 95; BMI 35.1
--- NOTE | 2024-12-18 13:56 | MHC.OFFWIV ---
Intake Vital Signs 12/18/24 13:56 Height 5 ft 1 in Weight 186 lb BMI 35.1 BP 108/76 Blood Pressure Location Rt brachial Position Sitting Respiration 16 Pulse 69 Pulse Source Pulse Oximeter Temp 97.8 F Temp Source Oral Pulse Oximetry (%) 95 Oxygen Delivery Method Room Air Intake Visit Reasons: EP Pain in feet Intake Note: Pt is here today c/o bilateral feet pain Patient Tobacco Use Status: Never used Tobacco Allergies Penicillins Allergy (Intermediate, Verified 12/18/24 14:00) Hives oxaprozin [From Daypro] Allergy (Unknown, Verified 12/18/24 14:00) RASH hydroxychloroquine Adverse Reaction (Intermediate, Verified 12/18/24 14:00) Abdominal Pain budesonide [Symbicort] Adverse Reaction (Unknown, Verified 12/18/24 14:00) nausea and vomiting HPI HPI Comments History of Present Illness Details Son present and interpretting for pt She presents for 10/10 feet pain bilaterally Ongoing x 3 years Worsening wounds to posterior heels which promted her to come in today She takes prcocet for pain and antibiotic cream per son Worse with ambulating and standing ip No fevers or chills No diabetes No trauma or injury recently Pain located on heels and along varicose veins PFSH Medical History (Updated 12/18/24 @ 14:27 by Clary Solano PA-C) Bilateral primary osteoarthritis of knee Constipation Osteoporosis Allergic rhinitis Insomnia Osteoarthritis Obesity (BMI 30-39.9) Depression Anxiety Vitamin D deficiency GERD without esophagitis Asthma Paroxysmal atrial fibrillation Pure hypercholesterolemia Benign essential hypertension PAF (paroxysmal atrial fibrillation) Surgical History History of colonoscopy Family History (Updated 12/10/24 @ 15:01 by Bertha Ozuna) Father CVD (cardiovascular disease) Stroke Mother Medical history unknown Brother Bone cancer Sister Cancer of mouth Social History (Updated 12/10/24 @ 14:59 by Bertha Ozuna) Housing: Apartment Alcohol intake: never Patient Tobacco Use Status: Never used Tobacco e-Cigarette/Vaping Use: Never Used Second Hand Smoke Exposure: Yes service: No Current occupational status: disabled Cognitive needs: No Hearing needs: No Vision needs: Yes (glasses) Review of Systems Const Denies chills and Denies fever(s) Musc Reports arthralgias and Reports joint swelling Skin/Breast Reports dry skin, Reports skin pain, Reports skin swelling and Reports sores Physical Exam Vital Signs: Last Vital Signs Temp 97.8 F 12/18/24 13:56 Pulse 69 12/18/24 13:56 Resp 16 12/18/24 13:56 BP 108/76 12/18/24 13:56 Pulse Ox 95 12/18/24 13:56 Oxygen Delivery Method Room Air 12/18/24 13:56 BMI result Body Mass Index 35.1 General: Non-toxic, NAD. Speaking full sentences. Skin: Warm dry throughout Posterior heels bilaterally near achilles insertion are slightly edematous and dry. R heel has a approx 2cm fissure without active bleeding or discharge. + tender to palpation. + vericose veins noted bilaterally without skin erythema or warmth associated Legs symmetrical in size and shape bilaterallu Eye: EOMI Respiratory: No tachypnea Cardiac: DP pulse intact bilaterally MSK: Full ROM extremities. Neurology: Alert. No aphasia or facial droop. Gait without abnormality Psych: Good mood and affect Assessment & Plan Assessment & Plan (1) Heel pain, bilateral: Code(s): M79.671 - Pain in right foot; M79.672 - Pain in left foot Plan: Pt seen and evaluated TOld to d/c cream Doxy prescribed (photosentivitity discussed) Take with food Keep area clean Elevate to help with swelling F/U with PCP Call with concerns Pt and son gave verbal understanding and had no additional questions at time of discharge Medications: New doxycycline hyclate photosensitivity 100 mg PO BID 14 caps 0RF Coding Level of Care Code Est Pt Level 3 (57361) Diagnoses Heel pain, bilateral M79.671; M79.672
== END 2024-12-18 14:22 | disposition home or self-care (01) ==
PROVIDERS: PCP Internal Medicine; Visit Provider Physician Assistant
DX: M79.671 Pain in right foot (principal); M79.672 Pain in left foot

== ENCOUNTER → 2024-12-18 13:03 | Outpatient (BNVA) | payer OTHER, SELFPAY | PROVIDERS: PCP Internal Medicine; Visit Provider Physician Assistant | DX: M79.671 Pain in right foot (principal); M79.672 Pain in left foot | CPT/HCPCS: 99212 ==

== ENCOUNTER 2024-12-23 13:47 | Outpatient (AMB) | payer OTHER, SELFPAY ==
--- NOTE | 2024-12-23 13:54 | A.OFFVIS_ITS ---
Vital Signs 12/23/24 14:06 Height 5 ft 1 in Weight 187 lb 13.341 oz BMI 35.5 BP 115/72 Blood Pressure Location Rt brachial Position Sitting Pulse 71 Pulse Source Pulse Oximeter Pulse Oximetry (%) 95 Oxygen Delivery Method Room Air Intake Visit Reasons: follow up/urgent request MD Intake Note: Patient presents for OA follow up. Director Of Digital Marketing Required: Yes Director Of Digital Marketing Language: Animal Care Taker Services: Director Of Digital Marketing Offered & Declined Director Of Digital Marketing Name: Tori Montenegro Information Interpreted: non-clinical & clinical Aggregate Conveyor Operator: Aggregate Conveyor Operator Present (Tori Montenegro) Accompanied by: Daughter Allergies Penicillins Allergy (Intermediate, Verified 12/23/24 14:05) Hives oxaprozin [From Daypro] Allergy (Unknown, Verified 12/23/24 14:05) RASH hydroxychloroquine Adverse Reaction (Intermediate, Verified 12/23/24 14:05) Abdominal Pain budesonide [Symbicort] Adverse Reaction (Unknown, Verified 12/23/24 14:05) nausea and vomiting Medication List - Last Reconciled 12/24/24 by Marilyn Mireles MD acetaminophen ER 650 mg PO Q8H PRN 30 days Advair HFA 115-21 mcg/actuation (fluticasone propion-salmeterol) 2 puffs inhalation BID NS albuterol sulfate 2.5 mg (3 mL) continuous nebulization QID PRN alclometasone 0.05% 0.05 appl topical DAILY atorvastatin 80 mg PO BEDTIME 90 days calcium carbonate-vit D3-min 600 mg calcium- 200 unit 1 tab PO DAILY candesartan 32 mg PO DAILY cholecalciferol (vitamin D3) 25 mcg PO DAILY 90 days diclofenac sodium 1% (Arthritis Pain (diclofenac)) 4 grams topical QID [disposable bed pads As directed 4 per day ] doxycycline hyclate 100 mg PO BID fluticasone propionate 110 mcg/actuation (Flovent HFA) 2 puffs inhalation BID 30 days folic acid 1 mg PO DAILY [gloves As directed] inhalational spacing device (Aerochamber MV spacer) As directed lactulose 20 grams (30 mL) PO DAILY PRN lidocaine 5% 1 appl topical TID PRN loratadine 10 mg PO DAILY PRN 90 days lubiprostone (Amitiza) 24 mcg PO BID mineral oil (Fleet Mineral Oil enema) 133 mL UT DAILY PRN mirtazapine 15 mg PO BEDTIME 90 days miscellaneous medical supply Power Lift Chair - As directed - to use indefinatly mupirocin 2% 1 appl topical TID naproxen 500 mg PO Q12H PRN [Nebulizer machine As directed] [Nebulizer machine As directed] oxycodone 15 mg PO BEDTIME PRN 7 days pregabalin 225 mg PO BID sennosides (senna) 8.6 mg PO DAILY tramadol 50 mg PO BID PRN 30 days walker (Ultra-Light Rollator misc) As directed [Walker with seat As directed] zolpidem 10 mg PO BEDTIME PRN 30 days HPI Comments Details: Patient is a 79-year-old female with asthma, hyperlipidemia, hypertension, venous stasis complicated by ulcers, MGUS, AFib, GERD, anxiety, paroxysmal atrial fibrillation, polyarticular osteoarthritis and osteoporosis here today for follow up Interval History: Patient last seen 11/23/2024 with me. At that time she was following up for her polyarticular osteoarthritis and osteoporosis. With respect to her knee osteoarthritis I recommended topical diclofenac. With respect to her osteoporosis she was not willing to take any more medications and so no medicat ions were prescribed She reached out to the office about a week later noting worsening knee pain. Topical diclofenac not helping. Had her scheduled for follow up for an urgent visit but patient deferred because she felt like she could not walk. Today, Continues to have bilateral knee pain L>R and whole body pain Rheumatologic History: OA Osteoporosis Current Rheumatology Medication(s): [facility] Medical History (Updated 12/18/24 @ 14:27 by Clary Solano PA-C) Bilateral primary osteoarthritis of knee Constipation Osteoporosis Allergic rhinitis Insomnia Osteoarthritis Obesity (BMI 30-39.9) Depression Anxiety Vitamin D deficiency GERD without esophagitis Asthma Paroxysmal atrial fibrillation Pure hypercholesterolemia Benign essential hypertension PAF (paroxysmal atrial fibrillation) Surgical History History of colonoscopy Family History Father CVD (cardiovascular disease) Stroke Mother Medical history unknown Brother Bone cancer Sister Cancer of mouth Social History Housing: Apartment Alcohol intake: never Patient Tobacco Use Status: Never used Tobacco e-Cigarette/Vaping Use: Never Used Second Hand Smoke Exposure: Yes service: No Current occupational status: disabled Cognitive needs: No Hearing needs: No Vision needs: Yes (glasses) Review of Systems Const Details: Review of Systems Constitutional: Denies fever, chills, weight loss ENT: Denies vision changes, eye pain or eye redness, dental caries, dry mouth GI: Denies nausea, vomiting, diarrhea, abdominal pain, change in BM Pulm: Denies SOB, DESAI, hemoptysis, wheezing Cards: Denies chest pain, palpitations Skin: Denies Raynaud's, rash, nail changes, photosensitivity, LINING CASER: Denies headaches, weakness, paresthesias, recurrent falls MSK: as per HPI All other systems reviewed and are unremarkable except noted above Physical Exam Vital Signs: Last Vital Signs Pulse 71 12/23/24 14:06 BP 115/72 12/23/24 14:06 Pulse Ox 95 12/23/24 14:06 Oxygen Delivery Method Room Air 12/23/24 14:06 BMI result Body Mass Index 35.5 Vital signs reviewed Physical Examination CONSTITUITIONAL Patient alert and cooperative. Well appearing and in no apparent painful distress HEENT Conjunctiva and sclera clear. ?No lymphadenopathy. ? CHEST/RESPIRATORY SYSTEM Normal respiratory effort and able to speak in complete sentences. ?Clear to auscultation bilaterally. ?No crackles, rales, rhonchi, wheezes heard. CARDIAC SYSTEM Regular rate and rhythm. ?S1 and S2 heard no murmurs. ?Radial pulses intact bilaterally MSK Hands: ?Able to make a fist. No synovitis noted to the MCPs, PIPs or DIPs. ?No tenderness to palpation of these joints. Herbeden's nodes Wrists: ?Full range of motion at the wrists without pain. ?No tenderness to palpation or synovitis noted to the wrists. Elbows: Full range of motion without pain. No tenderness, weakness, swelling, increased warmth or erythema. Shoulders: TTP of the bilateral AC joints. Knees: ?No swelling, increased warmth or erythema. Crepitations bilaterally. TTP of the joint line Ankles: ?No tenderness, swelling, increased warmth or erythema.? Feet: ?Negative squeeze test. ?No tenderness to palpation or swelling of the MTPs. Tender points:?No tenderness to palpation of the bilateral trapezius, supraspinatus, greater trochanters, anterior costochondral junctions, bilateral gluteal areas, bilateral suboccipital muscle insertions SKIN Skin intact without rashes. lipodermatosclerotic changes to bilateral legs. Office Procedures AMB Joint Injection/Aspiration Joint Injection/Aspiration Details: Procedure was explained to the patient and consent was obtained. ? The area of interest was identified and confirmed with patient. ?This was subsequently cleaned with chlorhexidine x3. ? The area was then anesthetized using ethyl chloride spray. 40 mg Kenalog with 1 cc 1% lidocaine was injected without issue. ?Minimal to no bleeding. ?Patient tolerated procedure. Primary Site: left knee Prep: site was prepped using aseptic technique and ethochloride spray was applied Injected: 40 mg of, Kenalog, with 1 mL of, 1% plain lidocaine and in the joint Approach Used: anterior Procedure: The patient tolerated the procedure well Coding 56277 - Large joint Procedure code (CPT) selection complete Office Meds lidocaine (PF) 10 mg/mL (1 %) injection solution Performing Provider: Marilyn Mireles MD Performing Location: [facility] [place] Rheumatology Administered by: Marilyn Mireles MD on 12/24/24 16:40 Dose Route Admin Location Dispensed Lot Number Expiration Date [facility] Spindraw Operator 1 mL Infiltration left knee 2 mL [id number] 09/12/26 14327-094-64 [facility] Synvisc-One 48 mg/6 mL intra-articular syringe Performing Provider: Marilyn Mireles MD Performing Location: [facility] [place] Rheumatology Documented (not given) by: Marilyn Mireles MD on 12/24/24 16:40 Reason Not Given: No Longer Necessary Kenalog 40 mg/mL suspension for injection Performing Provider: Marilyn Mireles MD Performing Location: [facility] [place] Rheumatology Administered by: Marilyn Mireles MD on 12/24/24 16:40 Dose Route Admin Location Dispensed Lot Number Expiration Date [facility] Spindraw Operator 40 mg intra-articular left knee 1 mL [id number] 10/13/26 4245-0274-96 [facility] Results Reviewed Results Reviewed: Laboratory Tests 06/17/24 11/09/24 15:40 00:39 WBC 10.1 RBC 4.63 Hgb 12.6 Hct 40.0 Plt Count 226 D ESR 11 Sodium 145 Potassium 4.3 Chloride 106 Carbon Dioxide 29 BUN 19 H Creatinine 0.78 AST 26 ALT 16 Alkaline Phosphatase 95 Laboratory Tests 11/09/23 12/04/24 11:14 15:40 Rheumatoid Factor < 13.0 Cycl Citrul Peptide IgG <16 ADONIS Screen NEGATIVE DEXA 04/2024 FINDINGS: AP SPINE L1-L4: Current: BMD 1.007 g/cm2, Z-score -0.2, T-score -1.4, osteopenia, 2.1% increase from previous, 8.3% increase from baseline (<5% change is not significant). Prior: BMD 0.986 g/cm2. Baseline: BMD 0.930 g/cm2. LEFT FEMUR, NECK: Current: BMD 0.595 g/cm2, Z-score -1.6, T-score -3.2, osteoporosis. Prior: BMD 0.783 g/cm2. Baseline: BMD 0.815 g/cm2. LEFT FEMUR, TOTAL: Current: BMD 0.621 g/cm2, Z-score -1.6, T-score -3.1, osteoporosis, 23.2% decrease from previous, 24.4% decrease from baseline (<5% change is not significant). Prior: BMD 0.809 g/cm2. Baseline: BMD 0.821 g/cm2. Assessment & Plan Assessment & Plan (1) Bilateral primary osteoarthritis of knee: Code(s): M17.0 - Bilateral primary osteoarthritis of knee Category: Medical Plan: #Bilateral knee OA Patient is a 79-year-old female with polyarticular osteoarthritis here today for urgent visit for left knee pain. Patient complaining of bilateral knee pain left worse than right. This is likely secondary to knee osteoarthritis. s/p left knee injection today Due to her multiple complaints I think it is reasonable for us to check her for underlying inflammatory arthritis once again. Of note I do not see any evidence of inflammatory arthritis on examination. Plan - Check inflammatory arthritis labs - RTC 6 months (2) Osteoporosis: Comment: DEXA 04/2024: AP Spine -1.4, Left femur neck -3.2, Left femur total -3.1 Code(s): M81.0 - Age-related osteoporosis without current pathological fracture Category: Medical Qualifiers: Osteoporosis type: unspecified Presence of current pathological fracture: without current pathological fracture Qualified Code(s): M81.0 - Age- related osteoporosis without current pathological fracture Plan: #Osteoporosis Patient with osteoporosis of the left hip. Currently does not want to take any more medications. We will reassess willingness to do medications at the next visit. Plan I spent 20 minutes reviewing the record and labs, taking a history, examining the patient, discussing the treatment plan, ordering diagnostic work up and documenting in the medical record Orders: Orders AMB Joint Injection/Aspiration 12/23/24 M17.12 - Unilateral primary osteoarthritis, left knee Anti DNA DS Antibody 12/23/24 I77.6 - Arteritis, unspecified Sm Sm/FOOD PRODUCTION ASSOCIATE Antibodies 12/23/24 I77.6 - Arteritis, unspecified Complement C3 12/23/24 I77.6 - Arteritis, unspecified Complement C4 12/23/24 I77.6 - Arteritis, unspecified Angiotensin Converting Enzyme 12/23/24 I77.6 - Arteritis, unspecified Complete Blood Count Auto Diff 12/23/24 I77.6 - Arteritis, unspecified C Reactive Protein 12/23/24 I77.6 - Arteritis, unspecified Cryoglobulin 12/23/24 I77.6 - Arteritis, unspecified Erythrocyte Sedimentation Rate 12/23/24 I77.6 - Arteritis, unspecified Hepatitis A,B,C Profile 12/23/24 I77.6 - Arteritis, unspecified Immunofixation Pnl, Serum 12/23/24 I77.6 - Arteritis, unspecified Immunoglobulins,IgG IgA IgM 12/23/24 I77.6 - Arteritis, unspecified Sjogren's Antibodies 12/23/24 I77.6 - Arteritis, unspecified Protein Electrophoresis, Serum 12/23/24 I77.6 - Arteritis, unspecified ADONIS Reflex Titer and Pattern 12/23/24 I77.6 - Arteritis, unspecified ANCA Vasculitides 12/23/24 I77.6 - Arteritis, unspecified Comprehensive Met. Panel 12/23/24 I77.6 - Arteritis, unspecified Rheumatoid Factor 12/23/24 I77.6 - Arteritis, unspecified Cyclic Citrullinated Peptide 12/23/24 I77.6 - Arteritis, unspecified Medications: Discontinued folic acid Discontinued Reason: Doctor's Order 1 mg PO DAILY 90 tabs 1RF diclofenac sodium 1% (Arthritis Pain (diclofenac)) apply to bilateral knees 4 times a day Discontinued Reason: Doctor's Order 4 grams topical QID 100 grams 4RF M17.0 - Bilateral primary osteoarthritis of knee Coding Level of Care Code Est Pt Level 3 (70668) Diagnoses Bilateral primary osteoarthritis of knee M17.0 Osteoporosis without current pathological fracture, unspecified osteoporosis type M81.0 Osteoporosis type: unspecified Presence of current pathological fracture: without current pathological fracture CPT Codes Coding - 19551 Large joint: 63058 - Large joint ([id number])
[2024-12-23 14:06] VITALS: BP 115/72; PULSE 71; O2SAT 95; BMI 35.5
--- OUTSIDE RECORDS SUMMARY | 2024-12-23 15:41 | XMS_ITS | Referral Summary ---
Author Organization [facility] Address [address] [place] [address] Care Team Providers Care Technology Risk Intern Name Role Phone Tyron Milton Primary Care Provider [phone] Allergies Active Allergy Reactions Criticality Noted Date [...] Treatment Not on file Insurance ANGELICA WALDEN [id number] [facility] Care Teams Technology Risk Intern Relationship Specialty Start Date End Date Milton Ackerman [address] [place] [address] [place] [address] PCP - General Internal Medicine 01/20/24
== END 2024-12-23 14:46 | disposition home or self-care (01) ==
LOC: HO.RHE 13:48
PROVIDERS: PCP Internal Medicine; Visit Provider Student in an Organized Health Care Education/Training Program
DX: M17.0 Bilateral primary osteoarthritis of knee (principal); M81.0 Age-related osteoporosis without current pathological fracture; M17.12 Unilateral primary osteoarthritis, left knee
CPT/HCPCS: 20610; 99213

== ENCOUNTER → 2024-12-23 13:47 | Outpatient (BNVA) | payer OTHER, SELFPAY | PROVIDERS: PCP Internal Medicine; Visit Provider Student in an Organized Health Care Education/Training Program | DX: M17.12 Unilateral primary osteoarthritis, left knee (principal); I77.6 Arteritis, unspecified; M81.0 Age-related osteoporosis without current pathological fracture | CPT/HCPCS: 20610; 99212; J2003; J3300; J7325 ==

== ENCOUNTER 2025-01-12 13:50 | Outpatient (RCR) | payer OTHER, SELFPAY | END 2025-01-12 16:42 | disposition home or self-care (01) | LOC: HO.WCC 13:50 | PROVIDERS: PCP Internal Medicine; Visit Provider Surgery | DX: L97.511 Non-pressure chronic ulcer of other part of right foot limited to breakdown of skin (principal); L97.521 Non-pressure chronic ulcer of other part of left foot limited to breakdown of skin; L97.828 Non-pressure chronic ulcer of other part of left lower leg with other specified severity; L97.818 Non-pressure chronic ulcer of other part of right lower leg with other specified severity; M05.861 Other rheumatoid arthritis with rheumatoid factor of right knee; M05.862 Other rheumatoid arthritis with rheumatoid factor of left knee; I48.20 Chronic atrial fibrillation, unspecified; I10 Essential (primary) hypertension; Z79.52 Long term (current) use of systemic steroids; Z79.891 Long term (current) use of opiate analgesic; Z79.2 Long term (current) use of antibiotics; Z79.899 Other long term (current) drug therapy | CPT/HCPCS: 97597; 99212; 99214 ==

== ENCOUNTER 2025-01-21 09:44 | Outpatient (AMB) | payer OTHER, SELFPAY ==
[2025-01-21 09:51] VITALS: BP 122/84; PULSE 68; O2SAT 96; BMI 34.4
--- NOTE | 2025-01-21 09:51 | MHC.PC.OV ---
Vital Signs 01/21/25 09:51 Height 5 ft 1 in Weight 182 lb 4 oz BMI 34.4 BP 122/84 Blood Pressure Location Lt brachial Position Sitting Pulse 68 Pulse Source Pulse Oximeter Pulse Oximetry (%) 96 Oxygen Delivery Method Room Air Intake Visit Reasons: 3mth f/u Public Health Internship Required: No Accompanied by: Daughter Allergies Penicillins Allergy (Intermediate, Verified 01/21/25 10:15) Hives oxaprozin (From Daypro) Allergy (Unknown, Verified 01/21/25 10:15) RASH hydroxychloroquine Adverse Reaction (Intermediate, Verified 01/21/25 10:15) Abdominal Pain budesonide (Symbicort) Adverse Reaction (Unknown, Verified 01/21/25 10:15) nausea and vomiting Medication List - Last Reconciled 01/21/25 by Milton Ackerman MD acetaminophen ER 650 mg PO Q8H PRN 30 days Advair HFA 115-21 mcg/actuation (fluticasone propion-salmeterol) 2 puffs inhalation BID NS albuterol sulfate 2.5 mg (3 mL) continuous nebulization QID PRN alclometasone 0.05% 0.05 appl topical DAILY atorvastatin 80 mg PO BEDTIME 90 days calcium carbonate-vit D3-min 600 mg calcium- 200 unit 1 tab PO DAILY candesartan 32 mg PO DAILY cholecalciferol (vitamin D3) 25 mcg PO DAILY 90 days [disposable bed pads As directed 4 per day ] doxycycline hyclate 100 mg PO BID fluticasone propionate 110 mcg/actuation (Flovent HFA) 2 puffs inhalation BID 30 days [gloves As directed] inhalational spacing device (Aerochamber MV spacer) As directed lactulose 20 grams (30 mL) PO DAILY PRN lidocaine 5% 1 appl topical TID PRN loratadine 10 mg PO DAILY PRN 90 days lubiprostone (Amitiza) 24 mcg PO BID mineral oil (Fleet Mineral Oil enema) 133 mL MS DAILY PRN mirtazapine 15 mg PO BEDTIME 90 days miscellaneous medical supply Power Lift Chair - As directed - to use indefinatly mupirocin 2% 1 appl topical TID naproxen 500 mg PO Q12H PRN [Nebulizer machine As directed] [Nebulizer machine As directed] oxycodone 15 mg PO BEDTIME PRN 14 days pregabalin 225 mg PO BID sennosides (senna) 8.6 mg PO DAILY tramadol 50 mg PO BID PRN 30 days walker (Ultra-Light Rollator misc) As directed [Walker with seat As directed] zolpidem 10 mg PO BEDTIME PRN 30 days Tobacco use date assessed: 01/21/25 Fall risk assessment: No Falls in past year Last assessed Fall Risk: 01/21/25 Dental Screening Dental Screen Date: 01/21/25 Did you have a dental visit in the last 12 months?: No Did you have a dental problem in the last 6 months where you did not have access to dental care?: No Was dental information given to patient?: No HPI 3mth f/u HPI Details Patient comes in today for her follow up visit States that she is still breaking out in painful rash/sores on her lower legs and feet and was supposedly advised by the wound clinic when she was seen recently for her leg wounds that she likely has some vasculitis causing her recurrent painful sores She was seen by rheumatology and had some work ups ordered last month but states that she has not gotten these done yet States that she needs to get a refill for her Lidocaine ointment and Naproxen - Naproxen was initially prescribed at the walk-in clinic last month and this seems to help better with her pain when she takes it with her Tramadol Patient denies any fever, headaches or dizziness Denies any chest pains, no shortness of breath No nausea/vomiting, no abdominal pain No change in bowel habits noted She was not able to get for follow-up labs done yet - states that she will try to get them done tomorrow morning [facility]LY [facility] Medical History Bilateral primary osteoarthritis of knee Constipation Osteoporosis Allergic rhinitis Insomnia Osteoarthritis Obesity (BMI 30-39.9) Depression Anxiety Vitamin D deficiency GERD without esophagitis Asthma Paroxysmal atrial fibrillation Pure hypercholesterolemia Benign essential hypertension PAF (paroxysmal atrial fibrillation) Surgical History History of colonoscopy Family History Father CVD (cardiovascular disease) Stroke Mother Medical history unknown Brother Bone cancer Sister Cancer of mouth Social History Housing: Apartment Alcohol intake: never Patient Tobacco Use Status: Never used Tobacco e-Cigarette/Vaping Use: Never Used Second Hand Smoke Exposure: Yes service: No Current occupational status: disabled Cognitive needs: No Hearing needs: No Vision needs: Yes (glasses) Questionnaire PHQ-9 Over the last 2 weeks, how often have you been bothered by any of the following problems? 1. Little interest or pleasure in doing things: not at all 2. Feeling down, depressed, or hopeless: several days 3. Trouble falling or staying asleep, or sleeping too much: several days 4. Feeling tired or having little energy: several days 5. Poor appetite or overeating: not at all 6. Feeling bad about yourself - or that you are a failure or have let yourself or your family down: not at all 7. Trouble concentrating on things, such as reading the newspaper or watching television: not at all 8. Moving or speaking so slowly that other people could have noticed. Or the opposite - being so fidgety or restless that you have been moving around a lot more than usual: not at all 9. Thoughts that you would be better off or of hurting yourself in some way: not at all Total score: 3 Depression Screening Interpretation: Positive Depression Screening Follow-up: Existing condition and In treatment Depression Screening Done: Yes 15611 - PHQ-9 Billing: Yes Source: Developed by Drs. Abisai Peñaloza, Celina Simeon, Ayad Briceno and colleagues, with an educational elif from [employer]. Thrive Questionnaire Date Thrive assessed: 01/21/25 I am a: Patient What is your living situation today?: I have a steady place to live Within the past 12 months, did the food you bought not last and you didn't have the money to get more?: Never true Within the past 12 months, did you worry whether your food would run out before you got money to buy more?: Never true Do you have trouble paying for medicines?: No Do you have trouble getting transportation to medical appointments?: No Do you have trouble paying your heating and electricity bill?: No Do you have trouble taking care of your child, family member or friend?: No Do you have trouble with day-to-day activities such as bathing, preparing meals, shopping, managing finances, etc.?: Yes Are you currently unemployed and looking for a job?: No Are you interested in more education?: No Please select the resources that you would like help with: None Currently or been in a relationship where the following occur: No concerns reported THRIVE Score: 0 AUDIT C Alcohol Use Questionnaire (AUDIT-C) 1. How often do you have a drink containing alcohol?: Never 3. How often do you have six or more drinks on one occasion?: Never Total Score: 0 Score Reviewed/Action Taken: Yes FARIDEH-7 AMB Questionnaire FARIDEH-7 Date FARIDEH - 7 assessed: 01/21/25 Feeling nervous, anxious, or on edge: 1 = Several days Not being able to stop or control worryin = Several days Worrying too much about different things: 1 = Several days Trouble relaxin = Several days Being so restless that it is hard to sit still: 1 = Several days Becoming easily annoyed or irritable: 1 = Several days Feeling afraid as if something awful might happen: 0 = Not at all Total FARIDEH-7 score (0-4 normal; 5-9 mild; 10-14 moderate; 15-21 severe): 6 Source: Developed by Drs. Abisai Peñaloza, Celina Simeon, Ayad Briceno and colleagues, with an educational elif from [employer]. Review of Systems Const Denies chills, Reports fatigue, Denies fever(s) and Denies headache(s) ENT Denies dysphagia, Denies dizziness, Denies otalgia, Denies headache(s), Denies neck pain, Denies odynophagia and Denies sore throat Card Denies chest pain, Denies palpitations and Denies dyspnea Resp Denies chest congestion, Denies cough and Denies dyspnea GI Denies abdominal pain, Reports constipation (at times), Denies dysphagia, Denies heartburn, Denies diarrhea, Denies nausea, Denies odynophagia and Denies vomiting Denies difficulty voiding, Denies nocturia, Denies dysuria and Reports urinary incontinence (mostly urge incontinence, especially at night) Musc Denies back pain, Reports arthralgias (involving multiple joints, especially in both knees) and Denies neck pain Skin/Breast Denies rash and Reports skin ulcer (recurrent multiple painful sores/ulcers on both distal lower legs & ankles) Neuro Denies dizziness and Denies headache(s) Endo Reports fatigue and Denies palpitations Physical exam (Primary Care) Vital Signs: Last Vital Signs Pulse 68 01/21/25 09:51 BP 122/84 01/21/25 09:51 Pulse Ox 96 01/21/25 09:51 Oxygen Delivery Method Room Air 01/21/25 09:51 BMI result Body Mass Index 34.4 Tobacco/Smoking Status: Tobacco use Status Tobacco use date assessed 01/21/25 01/21/25 09:55 Patient Tobacco Use Status Never used Tobacco 01/21/25 09:55 e-Cigarette/Vaping Use Never Used 01/21/25 09:55 PHQ-9: PHQ-9 Score PHQ-9: Total score 3 01/21/25 10:18 Depression Screening Interpretation: Positive Depression Screening Follow-up: Existing condition and In treatment Thrive Assessment: Date of Thrive Assessment Date Thrive assessed 01/21/25 01/21/25 09:55 Currently or been in a relationship where the following occur: No concerns reported Const General: no acute distress and alert HENMT Ears: TM's normal bilaterally and EAC's normal Throat: Yes posterior oropharynx normal and Yes tonsils normal Neck Neck: Yes supple and No lymphadenopathy Thyroid: Thyroid normal Resp Auscultation: clear to auscultation bilaterally, no rales and no wheezes Cardio Rate: regular rate Rhythm: regular rhythm Heart sounds: no murmurs GI Palpation (GI): Soft to palpation and nontender Auscultation: normal bowel sounds General: Yes no CVA tenderness Back/Spine/Pelvis Back: no CVA tenderness Thoracic/Lumbar Spine: No lumbar spinal tenderness Skin Other: (+) few, small, tender, non-draining, ulcers/sores over the distal half of both lower legs and around both ankles Rashes: no rashes Extrem General: Yes no clubbing, cyanosis or edema Coding Level of Care Code Est Pt Level 4 (12675) Diagnoses Ulcers of both lower extremities, unspecified ulcer stage L97.919; L97.929 Non-pressure ulcer stage: unspecified non-pressure ulcer stage Pure hypercholesterolemia E78.00 Benign essential hypertension I10 Paroxysmal atrial fibrillation I48.0 Moderate persistent asthma without complication J45.40 Asthma complication type: uncomplicated Asthma persistence: persistent Asthma severity: moderate Seasonal allergic rhinitis due to pollen J30.1 Allergic rhinitis seasonality: seasonal Allergic rhinitis trigger: pollen GERD without esophagitis K21.9 Constipation, unspecified constipation type K59.00 Constipation type: unspecified constipation type Vitamin D deficiency E55.9 Osteoporosis without current pathological fracture, unspecified osteoporosis type M81.0 Osteoporosis type: unspecified Presence of current pathological fracture: without current pathological fracture Primary osteoarthritis involving multiple joints M89.49 Insomnia, unspecified type G47.00 Insomnia type: unspecified Anxiety F41.9 Episode of recurrent major depressive disorder, unspecified depression episode severity F33.9 Active/Remission status: currently active Depression Type: major depressive disorder Major depression episode severity: unspecified Major depression recurrence: recurrent Obesity (BMI 30-39.9) E66.9 Additional Codes PHQ-9 - 14155 - PHQ-9 Billing: Yes ([id number]) Assessment & Plan Assessment & Plan (1) Ulcers of both lower extremities: Code(s): L97.919 - Non-pressure chronic ulcer of unspecified part of right lower leg with unspecified severity; L97.929 - Non-pressure chronic ulcer of unspecified part of left lower leg with unspecified severity Category: Medical Qualifiers: Non-pressure ulcer stage: unspecified non-pressure ulcer stage Qualified Code(s): L97.919 - Non-pressure chronic ulcer of unspecified part of right lower leg with unspecified severity; L97.929 - Non-pressure chronic ulcer of unspecified part of left lower leg with unspecified severity Plan: Patient has been breaking out in recurrent painful ulcers on her lower extremities for a couple of years now She has been seen and evaluated by dermatology, vascular surgery and rheumatology extensively for these over the past 1 to 2 years and they have ruled out dermatologic, vascular and rheumatologic etiologies for her recurrent ulcers She was seen by Dr. Velázquez a few months ago and is being evaluated for possible neuropathic causes and was trialed unsuccessfully with Gabapentin up to 800 mg TID; she is now on Pregabalin 225 mg BID but patient reports that this is still not helping much lately Follow up with neurology as scheduled (2) Pure hypercholesterolemia: Code(s): E78.00 - Pure hypercholesterolemia, unspecified Category: Medical Plan: Patient was not able to get her follow-up labs done prior to her appointment today - states that she will try to get these done tomorrow morning Reinforced low cholesterol diet Continue Atorvastatin 80 mg QD Will recheck her labs and fasting lipids again in 3 months for follow up (3) Benign essential hypertension: Code(s): I10 - Essential (primary) hypertension Category: Medical Plan: Reinforced low-sodium diet - goal is systolic BP of at least 140 mm or less Continue Candesartan 32 mg QD; HCTZ was previously discontinued (4) Paroxysmal atrial fibrillation: Code(s): I48.0 - Paroxysmal atrial fibrillation Category: Medical Plan: Patient currently remains in sinus rhythm and is asymptomatic from a cardiac standpoint Per request, she was sent for an echocardiogram for further evaluation - echocardiogram done in November 2024 came out normal She was also referred to cardiology again for evaluation for any possible cardiac etiology for her assumed recurrent painful lower extremity neuropathic ulcers and she is scheduled to be seen by Cardiology sometime in March 2025 (5) Asthma: Code(s): J45.909 - Unspecified asthma, uncomplicated Category: Medical Qualifiers: Asthma complication type: uncomplicated Asthma persistence: persistent Asthma severity: moderate Qualified Code(s): J45.40 - Moderate persistent asthma, uncomplicated Plan: Controlled - continue Advair HFA 115-21 mcg 2 inhalations BID and Albuterol HFA 1 to 2 inhalations Q 6 hours PRN States that she uses her nebulizer only when needed (6) Allergic rhinitis: Code(s): J30.9 - Allergic rhinitis, unspecified Category: Medical Qualifiers: Allergic rhinitis seasonality: seasonal Allergic rhinitis trigger: pollen Qualified Code(s): J30.1 - Allergic rhinitis due to pollen Plan: Continue Loratadine 10 mg QD PRN (7) GERD without esophagitis: Code(s): K21.9 - Gastro-esophageal reflux disease without esophagitis Category: Medical Plan: Dietary restrictions reinforced Continue Omeprazole 40 mg QD (8) Constipation: Code(s): K59.00 - Constipation, unspecified Category: Medical Qualifiers: Constipation type: unspecified constipation type Qualified Code(s): K59.00 - Constipation, unspecified Plan: Reinforced increased oral fluids and dietary fiber Continue Amitiza 24 mcg BID and Senokot 1 tablet QD PRN (9) Vitamin D deficiency: Code(s): E55.9 - Vitamin D deficiency, unspecified Category: Medical Plan: Continue Vitamin D3 1000 units QD (10) Osteoporosis: Comment: DEXA 04/2024: AP Spine -1.4, Left femur neck -3.2, Left femur total -3.1 Code(s): M81.0 - Age-related osteoporosis without current pathological fracture Category: Medical Qualifiers: Osteoporosis type: unspecified Presence of current pathological fracture: without current pathological fracture Qualified Code(s): M81.0 - Age-related osteoporosis without current pathological fracture Plan: Repeat BMD done in July 2022 revealed that patient's BMD has declined significantly from her previous scan in July 2017, especially in the left femur, which declined by 23.2% from previous Her A/P spine BMD is mostly unchanged and her lowest T-score is now at -3.2 in the femoral neck Patient has been on Alendronate 70 mg Q week for years (unclear when she actually started taking it but most likely > 5 years) and we have instructed patient earlier this year to just finish up her current supply of Alendronate, then D/C the Rx We will also consider having her see endocrinology for her osteoporosis once her current issues with her lower extremity ulcers are under better control (11) Primary osteoarthritis involving multiple joints: Code(s): M89.49 - Other hypertrophic osteoarthropathy, multiple sites Category: Medical Plan: Mostly involving her right knee -? she has received cortisone injection from Orthopedics in the past without any significant relief Have advised her again that physical therapy can help with her knee pain if her symptoms get worse -? patient does not want to pursue this for now, especially with her recurrent painful ulcers ongoing currently Continue Tramadol 50 mg TID PRN; she is also now on Pregabalin 200 mg BID Follow-up with Orthopedics as scheduled or as needed (12) Insomnia: Code(s): G47.00 - Insomnia, unspecified Category: Medical Qualifiers: Insomnia type: unspecified Qualified Code(s): G47.00 - Insomnia, unspecified Plan: Sleep hygiene reinforced Continue Zolpidem 10 mg Q HS PRN (13) Anxiety: Code(s): F41.9 - Anxiety disorder, unspecified Category: Medical Plan: Continue Lorazepam 0.5 mg 2 to 3 times a day as needed Mirtazapine also appears to be helping (14) Depression: Code(s): F32.9 - Major depressive disorder, single episode, unspecified Category: Medical Qualifiers: Active/Remission status: currently active Depression Type: major depressive disorder Major depression episode severity: unspecified Major depression recurrence: recurrent Qualified Code(s): F33.9 - Major depressive disorder, recurrent, unspecified Plan: Continue Mirtazapine 15 mg Q HS (15) Obesity (BMI 30-39.9): Code(s): E66.9 - Obesity, unspecified Category: Medical Plan: Reinforced diet; exercise and weight loss are unrealistic given patient's current ongoing issues and multiple comorbidities Plan Follow up in 3 months Orders: Orders Hemoglobin A1c 3 Months E11.9 - Type 2 diabetes mellitus without complications Lipid Panel 3 Months E78.00 - Pure hypercholesterolemia, unspecified Complete Blood Count Auto Diff 3 Months D64.9 - Anemia, unspecified Comprehensive Independence. Panel Fast 3 Months E78.00 - Pure hypercholesterolemia, unspecified Medications: Changed From naproxen 500 mg PO Q12H PRN 20 tabs 0RF pain To naproxen Take with food 500 mg PO DAILY PRN 20 tabs 0RF pain Refilled lidocaine 5% 1 appl topical TID PRN 50 grams 1RF pain
--- OUTSIDE RECORDS SUMMARY | 2025-01-21 10:15 | XMS_ITS | Clinical Summary ---
Author Organization [facility] Address [address] [place] [address] Care Team Providers Care Marketing Pr Intern Name Role Phone Milton Ackerman MD Primary Care Provider [phone] Medications Medication Sig Dispensed Refills Start Date [...] 1-dose 75+ series) 2020 Influenza Vaccine (#1) 2025 Hepatitis B Vaccines Aged Out No long er eligible based on patient's age to complete this topic RSV Ped < 20 months Aged Out No longe r eligible based on patient's age to complete this topic Care Teams Marketing Pr Intern Relationship Specialty Start Date End Date Milton Ackerman MD [address] [place] [address] [address] [facility] [place], [place] [id number] PCP - General Internal Medicine 02/18/23
--- OUTSIDE RECORDS SUMMARY | 2025-01-21 10:15 | XMS_ITS | Clinical Summary ---
Author Organization [employer] Address [address] [facility] [address] [place] [address] Care Team Providers Care Gastroenterology Teacher Name Role Phone Unavailable Primary Care Provider [...] - 1-dose 75+ series) 2020 COVID-19 Vaccine (1 - 2023-2 5 season) 2024 Influenza Vaccine (#1) 2025 HIB Vaccines Aged Out No longer eligi [...] patient's age to complete this topic Meningococcal B Vaccine Aged Out No l onger eligible based on patient's age to complete [...]
--- OUTSIDE RECORDS SUMMARY | 2025-01-21 10:15 | XMS_ITS | Referral Summary ---
Author Organization [facility] Address [address] [place] [address] Care Team Providers Care Radio Producer Name Role Phone Tyron Milton Primary Care Provider [phone] Allergies Active Allergy Reactions Criticality Noted Date [...] 80 04/24/2024 2:41 PM EDT Temperature 36.5 C (97.7 F) 04/24/2024 2:41 PM EDT Respiratory Rate 16 04/24/2024 2:41 PM EDT Oxygen Saturation 98% 04/24/2024 2:41 PM EDT Inhaled Oxygen Concentration - - Weight 83 kg (183 lb) 04/24/2024 2:41 PM EDT Height 154.9 cm (5' 1 ) 04/24/2024 2:41 PM EDT Body Mass Index 34.58 04/24/2024 2:41 PM EDT Plan of Treatment Not on file Insurance ANGELICA [place] [id number] [facility] Care Teams Radio Producer Relationship Specialty Start Date End Date Milton Ackerman [address] [place] [address] [place] [address] PCP - General Internal Medicine 01/20/24
== END 2025-01-21 10:25 | disposition home or self-care (01) ==
LOC: HO.HMCH 09:44
PROVIDERS: PCP Internal Medicine; Visit Provider Internal Medicine
DX: I10 Essential (primary) hypertension (principal); L97.919 Non-pressure chronic ulcer of unspecified part of right lower leg with unspecified severity; L97.929 Non-pressure chronic ulcer of unspecified part of left lower leg with unspecified severity; I48.0 Paroxysmal atrial fibrillation; E78.00 Pure hypercholesterolemia, unspecified; J45.40 Moderate persistent asthma, uncomplicated; J30.1 Allergic rhinitis due to pollen; K21.9 Gastro-esophageal reflux disease without esophagitis; K59.00 Constipation, unspecified; E55.9 Vitamin D deficiency, unspecified; M81.0 Age-related osteoporosis without current pathological fracture; M89.49 Other hypertrophic osteoarthropathy, multiple sites

== ENCOUNTER 2025-01-21 09:44 | Outpatient (REF) | payer OTHER, SELFPAY | END 2025-01-21 09:45 | disposition home or self-care (01) | LOC: HO.LAB 09:44 | PROVIDERS: PCP Internal Medicine; Visit Provider Student in an Organized Health Care Education/Training Program | DX: L97.919 Non-pressure chronic ulcer of unspecified part of right lower leg with unspecified severity (principal); L97.929 Non-pressure chronic ulcer of unspecified part of left lower leg with unspecified severity; E78.00 Pure hypercholesterolemia, unspecified; I10 Essential (primary) hypertension; I48.0 Paroxysmal atrial fibrillation; J45.40 Moderate persistent asthma, uncomplicated; J30.1 Allergic rhinitis due to pollen; K21.9 Gastro-esophageal reflux disease without esophagitis; K59.00 Constipation, unspecified; E55.9 Vitamin D deficiency, unspecified; M81.0 Age-related osteoporosis without current pathological fracture; M89.49 Other hypertrophic osteoarthropathy, multiple sites; G47.00 Insomnia, unspecified; F41.9 Anxiety disorder, unspecified; F33.9 Major depressive disorder, recurrent, unspecified; E66.9 Obesity, unspecified; Z68.34 Body mass index [BMI] 34.0-34.9, adult; Z79.899 Other long term (current) drug therapy | CPT/HCPCS: 96127; 99212 ==

== ENCOUNTER 2025-01-22 10:09 | Outpatient (REF) | payer OTHER, SELFPAY ==
--- OUTSIDE RECORDS SUMMARY | 2025-01-22 10:41 | XMS_ITS | Clinical Summary ---
Author Organization [employer] Address [address] [facility] [address] [place] [address] Care Team Providers Care Engraver Flatware Name Role Phone Unavailable Primary Care Provider [...]
--- OUTSIDE RECORDS SUMMARY | 2025-01-22 10:41 | XMS_ITS | Referral Summary ---
Author Organization [facility] Address [address] [place] [address] Care Team Providers Care Acid Tester Name Role Phone Tyron Milton Primary Care Provider [phone] Allergies Active Allergy Reactions Criticality Noted Date [...] Treatment Not on file Insurance ANGELICA W[place] [id number] [facility] Care Teams Acid Tester Relationship Specialty Start Date End Date Milton Ackerman [address] [place] [address] [place] [address] PCP - General Internal Medicine 01/20/24
[2025-01-22 10:42] LABS: MANUAL DIFF FLAG NO
[2025-01-22 10:55] LABS: Hematocrit 38.3 % (37.0-47.0); Hemoglobin 12.5 g/dl (12.0-16.0); Imm Gran Abs Auto 0.02 X10*3/uL (0.00-0.03); Imm Gran Pct Auto 0.3 % (0.0-0.4); Lymphocytes Absolute Auto 1.0 X10*3/uL (1.2-4.9); Mean Corpuscular HGB Conc 32.6 g/dl (31.0-35.0); Mean Corpuscular Hemoglobin 28.0 pg (27.0-33.0); Mean Corpuscular Volume 85.7 fL (80.0-98.0); NRBC Abs Auto 0.000 X10*3/uL (0.0-0.012); NRBC Pct Auto 0.0 /100WBC (0.0-0.2); Platelet Count 263 X10*3/uL (160-400); Red Blood Count 4.47 X10*6/uL (4.20-5.50); White Blood Count 7.2 X10*3/uL (4.8-10.8)
[2025-01-22 11:31] LABS: Alanine Aminotransferase 12 U/L (0-31); Albumin Level 4.2 g/dL (3.5-5.0); Alkaline Phosphatase 91 U/L (39-117); Anion Gap 12 (12-20); Aspartate Amino Transferase 24 U/L (5-31); Blood Urea Nitrogen 16 mg/dL (9-16); Calcium 9.4 mg/dL (8.4-10.2); Carbon Dioxide 30 mmol/L (22-29); Chloride 104 mmol/L (96-108); Estimated Glomerular Filt Rate > 60; Potassium 4.0 mmol/L (3.3-5.1); Sodium 142 mmol/L (135-145); Total Protein 6.9 g/dL (6.5-8.0)
[2025-01-22 11:42] LABS: HBS Num1 1.62 mIU/mL (0-7.99); HBc Num1 0.05 S/CO (0.00-0.79); HBsAGNum1 0.34 S/CO (0.00-0.99); Hepatitis A Antibody IgM 0.26 Index (0-0.79); Hepatitis B Surface Antigen Negative (Negative); ~HepC Num1 0.11 S/CO (0.00-0.79); ~Hepatitis A Antibody IgM Nonreactive (Nonreactive); ~Hepatitis B Surface Antibody NONREACTIVE (Nonreactive); ~Hepatitis C Antibody Nonreactive (Nonreactive)
[2025-01-25 16:48] LABS: Antibody to SS-A Antigen <1.0 NEG AI (<1.0 NEG); Antibody to SS-B Antigen <1.0 NEG AI (<1.0 NEG); Proteinase 3 PR3 Antibodies <1.0 AI; SM/Ribonucleoprotein Ab <1.0 NEG AI (<1.0 NEG); Smith Protein <1.0 NEG AI (<1.0 NEG)
[2025-01-25 21:18] LABS: PES - Abn Protein Band 1 <0.2 g/dL (NONE DETECTED); Prot Elec - Albumin 3.6 g/dL (3.8-4.8); Prot Elec - Alpha1 0.4 g/dL (0.2-0.3); Prot Elec - Alpha2 0.9 g/dL (0.5-0.9); Prot Elec - Beta 1 0.4 g/dL (0.4-0.6); Prot Elec - Beta 2 0.2 g/dL (0.2-0.5); Prot Elec - Gamma 0.5 g/dL (0.8-1.7); Prot Elec - Total Protein 6.1 g/dL (6.1-8.1)
[2025-01-26 13:29] LABS: Anti Nuclear Antibody Screen NEGATIVE (NEGATIVE)
[2025-01-30 00:49] LABS: Cryoglobulin, Qual Negative (Negative)
== END 2025-01-22 10:10 | disposition home or self-care (01) ==
LOC: HO.LAB 10:09
PROVIDERS: PCP Internal Medicine; Visit Provider Student in an Organized Health Care Education/Training Program
DX: I77.6 Arteritis, unspecified (principal)
CPT/HCPCS: 36415; 80053; 82164; 82595; 82784; 84165; 85025; 85652; 86021; 86038; 86140; 86160; 86200; 86225; 86235; 86334; 86431; 86704; 86706; 86709; 86803; 87340

== ENCOUNTER 2025-01-25 23:50 | Emergency (ER) | payer OTHER, SELFPAY ==
--- NOTE | ~2025-01-25 | US_ITS ---
EXAMINATION: US TRIPLEX LOWER EXTREMITY, LEFT CLINICAL INFORMATION: Pain, left lower extremity calf region. COMPARISON: None available. TECHNIQUE: Color-flow triplex imaging with spectral analysis and compression Doppler were performed on the left lower extremity. FINDINGS: Respiratory variation, normal compression and augmented flow are present throughout the interrogated left common femoral vein, superficial femoral vein, profunda femoral vein, popliteal vein and midcalf peroneal and posterior tibial venous segments . There is no Hurst's cyst. US/US venous duplex LE IMPRESSION: No acute deep venous thrombosis interrogated veins, left lower extremity. Negative for DVT. Electronically signed by: Brenden Bhatti MD 01/26/2025 09:55 AM EDT
[2025-01-25 23:58] VITALS: BP 140/90; BP 189/74; PULSE 77; PULSE 81; RESP 15; TEMP 36.4; O2SAT 93; O2SAT 98; BMI 35.4
--- NOTE | 2025-01-26 01:59 | ED_ITS ---
HPI - General Adult General Chief complaint: Skin/Abscess/Foreign Body Stated complaint: OPENS WOUNDS/DISCOLORATION ON LEGS/FEET Time Seen by Provider: 01/26/25 01:12 Source: patient, family and EMS Mode of arrival: EMS Limitations: language barrier (Israeli-speaking requesting daughter for interpretation) History of Present Illness ED Provider: Alla Grant NP HPI narrative: Patient is a 79-year-old female with past medical history of varicose veins, MGUS, leg ulcers, depression, anxiety, asthma, GERD, paroxysmal atrial fibrillation not on anticoagulants, hypertension, hyperlipidemia who presents emergency department for evaluation of acute on chronic pain to the lower extremities. Patient's daughter provides history, was offered certified medical coding specialist WILFRED patient however declines. Daughter states it for the past 3-4 years she has been experiencing ongoing issues with bilateral lower extremity pain and skin lesions. She states that at times they are unilateral other times they are bilateral, does not uncommon for them to have redness surrounding them. She has been seen by many specialists including vascular, rheumatology, Hematology/Oncology, as well as primary care provider. Currently she is being treated with tramadol in addition to oxycodone 15 mg at night. She took the oxycodone at approximately 20:00 tonight. Reports that she could not walk due to the pain which prompted her coming to the emergency department today. Unilateral swelling, recent injury, chest pain, shortness of breath, fevers, chills. Pain is worse currently in the left lower extremity. Skin lesions are scabbed and dried. Related Data Home Medications ?Medication ?Instructions ?Recorded ?Confirmed calcium 600 mg (as carbonate)-vit 1 tab PO DAILY 09/2601/21/25 D3 5 mcg (200 unit)-minerals tablet Previous Rx's ?Medication ?Instructions ?Recorded inhalational spacing device #1 ea 04/07/21 (Aerochamber MV spacer) fluticasone propionate 110 2 puff inhalation BID 30 da ys #12 10/31/22 mcg/actuation HFA aerosol inhaler grams (Flovent HFA) disposable bed pads #1 ea 10/01/23 gloves #1 ea 10/01/23 loratadine 10 mg tablet 10 mg PO DAILY PRN allergy 0 03/22/24 symptoms 90 days #90 tabs miscellaneous medical supply #1 ea 04/10/24 albuterol sulfate 2.5 mg/3 mL 2.5 mg (3 mL) continuous 06/23/24 (0.083 %) solution for nebulization nebulization QID P RN shortness of breath or wheezing #90 mL Nebulizer machine #1 ea 08/07/24 Nebulizer machine #1 ea 08/12/24 cholecalciferol (vitamin D3) 25 25 mcg PO DAILY 90 day s #90 caps 10/11/24 mcg (1,000 unit) capsule pregabalin 225 mg capsule 225 mg PO BID #60 caps 10/27 zolpidem 10 mg tablet 10 mg PO BEDTIME PRN sleep 3 0 days 11/02/24 #30 tabs walker (Ultra-Light Rollator misc) #1 ea 11/10/24 Walker with seat #1 ea 11/16/24 lactulose 20 gram/30 mL oral 20 g (30 mL) PO DAILY PRN 12/15/24 solution constipation #420 mL mineral oil (Fleet Mineral Oil [address] DAILY PRN con stipation 12/15/24 enema) #266 mL mupirocin 2 % topical ointment 1 appl topical TID lowe r extremity 12/15/24 ulcers #50 grams doxycycline hyclate 100 mg capsule 100 mg PO BID #14 c aps 12/18/24 tramadol 50 mg tablet 50 mg PO BID PRN pain 30 day s #60 01/05/25 tabs acetaminophen 650 mg 650 mg PO Q8H PRN pain 30 da ys #90 01/08/25 tablet,extended release tabs alclometasone 0.05 % topical cream 0.05 appl topical D AILY #45 grams 01/08/25 Advair HFA 115 mcg-21 2 puff inhalation BID #12 gr ams 01/10/25 mcg/actuation aerosol inhaler (fluticasone propion-salmeterol) candesartan 32 mg tablet 32 mg PO DAILY #90 tabs 08/08 atorvastatin 80 mg tablet 80 mg PO BEDTIME 90 days #90 tabs 01/20/25 lidocaine 5 % topical ointment 1 appl topical TID PRN pain #50 01/21/25 grams naproxen 500 mg tablet 500 mg PO DAILY PRN pain #20 tabs 01/21/25 oxycodone 15 mg tablet 15 mg PO BEDTIME PRN severe pain 01/21/25 14 days #14 tabs lubiprostone 24 mcg capsule 24 mcg PO BID #60 caps (Amitiza) mirtazapine 15 mg tablet 15 mg PO BEDTIME 90 days #90 tabs 01/25/25 sennosides 8.6 mg tablet (senna) 8.6 mg PO DAILY #90 t abs 01/26/25 Allergies Allergy/AdvReac Type Severity Reaction Status Date / Time Penicillins Allergy Intermediate Hives Verified 01/26/25 00:05 oxaprozin (From Daypro) Allergy Unknown RASH Verified 01/26/25 00:05 hydroxychloroquine AdvReac Intermediate Abdominal Verified 01/26/25 00:05 Pain budesonide (Symbicort) AdvReac Unknown nausea and Verified 01/26/25 00:05 vomiting Review of Systems 2 Review of Systems: Yes all other systems are reviewed and are negative PMFSH Past Medical History Attestation statement: The following information was validated with the patient. Source: old records reviewed Medical History Bilateral primary osteoarthritis of knee Constipation Osteoporosis Allergic rhinitis Insomnia Osteoarthritis Obesity (BMI 30-39.9) Depression Anxiety Vitamin D deficiency GERD without esophagitis Asthma Paroxysmal atrial fibrillation Pure hypercholesterolemia Benign essential hypertension PAF (paroxysmal atrial fibrillation) Surgical History History of colonoscopy Family History Family History Father CVD (cardiovascular disease) Stroke Mother Medical history unknown Brother Bone cancer Sister Cancer of mouth Social History Social History Housing: Apartment Alcohol intake: never Patient Tobacco Use Status: Never used Tobacco e-Cigarette/Vaping Use: Never Used Second Hand Smoke Exposure: Yes service: No Current occupational status: disabled Cognitive needs: No Hearing needs: No Vision needs: Yes (glasses) Physical Exam ED Vital Signs: Vital Signs - 24 hr 01/26/25 10:47 Temperature 96.1 F L Pulse Rate 61 Respiratory Rate 17 Blood Pressure 162/88 H Pulse Oximetry 96 Oxygen Delivery Method Room Air BMI result Body Mass Index 35.4 Appearance: Alert.?Oriented to person, place and time. No acute distress.?Normal affect. Eyes: Pupils equal, round and reactive to light.? ENT: Pharynx normal.?? Neck: Normal inspection.? Neck supple.?? CVS: Heart sounds normal. Normal heart rate and rhythm.? Pulses normal.?? Respiratory: No respiratory distress.? Lung sounds clear to auscultation bilaterally?? Abdomen: Soft and non-tender. Normoactive bowel sounds. Skin: Skin warm and dry.? Normal skin color.? . Extremities: No lower extremity edema.? Bilateral lower extremities with diffuse pain, tenderness upon palpation. 2+ DP/PT pulse bilaterally. No disproportionate warmth to touch. Neuro: Moves all extremities spontaneously. Sensation intact bilaterally. No focal neuro deficits. Course Reevaluation(s) Reevaluation #1: Ambulatory trial requiring staff assistance, continues to endorse severe pain to the left lower extremity despite Dilaudid, does not feel as though she is able to return home with her degree of pain at this time. Patient signed out to my attending Waldo Dobbs pending serum labs and ultrasound Time: 04:17 Reevaluation #2: Dr. Harris, 01/26/2025 I received this patient in sign-out from my overnight colleague. The patient is a 79-year-old woman who presented with left leg pain. She was signed out pending the results of a left lower extremity DVT ultrasound. The ultrasound is negative. Other tests done today are unremarkable. The patient apparently has had chronic pain in the left leg for 4 years and has had an extensive workup. The leg is well-perfused with a good dorsalis pedis pulse. No obvious signs of infection or other acute problem. My overall impression is that this leg pain is quite chronic. The family seems comfortable taking the patient home. Medications Administered Discontinued Medications Generic Name Dose Route Start Last Admin Trade Name Freq PRN Reason Stop Dose Admin Hydromorphone HCl 2 mg 01/26/25 02:17 01/26/25 02:59 Hydromorphone Hcl 2 Mg Tablet PO 01/26/25 02:18 2 mg ONCE ONE Administration Medical Decision Making Medical Decision Making MDM Narrative: Patient is a 79-year-old female with past medical history of varicose veins, MGUS, leg ulcers, depression, anxiety, asthma, GERD, paroxysmal atrial fibrillation not on anticoagulants, hypertension, hyperlipidemia who presents emergency department for evaluation of acute on chronic pain to the lower extremities, left worse than right. As per HPI, this is chronic and ongoing. Despite taking tramadol in addition to the oxycodone tonight felt as though she was still having significant pain which prompted her to come to the ED. 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 Was recently seen a few months ago for possible neuropathic causes unsuccessful trial with gabapentin, she is currently on Lyrica twice daily but has not had any improvement and despite her acute pain medications tremor and oxycodone she has been has been leaves tonight. Bilateral LE's are neurovascularly intact distally I do not have suspicion for acute arterial occlusion, there is no disproportionate swelling tenderness erythema warmth to suggest DVT, cellulitis. She is afebrile nontoxic in appearance. She had recent outpatient 01/22/2025 leukocytosis anemia or thrombocytopenia. No electrolyte derangement. No KELSEY. Will attempt p.o. pain control in the emergency department with single dose of Dilaudid and plan for ambulatory trial Differential Diagnosis Differential Diagnoses: The differential diagnosis associated with the presentation includes (See narrative above) Admission/Observation Consideration of admission/observation: Escalation of care including admission/observation considered Lab Data MDM Lab Attestation statement: I reviewed the patient's lab results. 01/26/25 04:27 01/26/25 04:27 Labs: Lab Results 01/26/25 Range/Units 04:27 WBC 6.1 (4.8-10.8) X10*3/uL RBC 3.86 L (4.20-5.50) X10*6/uL Hgb 10.9 L (12.0-16.0) g/dl Hct 34.0 L (37.0-47.0) % MCV 88.1 (80.0-98.0) fL MCH 28.2 (27.0-33.0) pg MCHC 32.1 (31.0-35.0) g/dl RDW 14.4 (11.0-16.0) % Plt Count 223 (160-400) X10*3/uL MPV 10.2 (9.4-12.3) fL Immature Gran % (Auto) 0.5 H (0.0-0.4) % Neut % (Auto) 63.8 (45-73) % Lymph % (Auto) 24.1 (20-40) % Blackford % (Auto) 8.3 (2-11) % Eos % (Auto) 2.8 (0-4) % Baso % (Auto) 0.5 (0-2) % Lymph # (Auto) 1.5 (1.2-4.9) X10*3/uL Blackford # (Auto) 0.5 (0.1-1.2) X10*3/uL Eos # (Auto) 0.2 (0.0-0.4) X10*3/uL Baso # (Auto) 0.0 (0.0-0.2) X10*3/uL Abs Immat Gran (auto) 0.03 (0.00-0.03) X10*3/uL Absolute Neuts (auto) 3.9 (2.0-8.3) x10*3/uL Absolute Nucleated RBC 0.000 (0.0-0.012) X10*3/uL Nucleated RBC % (auto) 0.0 (0.0-0.2) /100WBC ESR 12 (0-20) MM/HR Sodium 146 H (135-145) mmol/L Potassium 4.4 (3.3-5.1) mmol/L Chloride 109 H (96-108) mmol/L Carbon Dioxide 30 H (22-29) mmol/L Anion Gap 11 L (12-20) BUN 21 H (9-16) mg/dL Creatinine 0.77 (0.5-1.4) mg/dL Estim Creat Clear Calc 58.7 Estimated GFR > 60 Random Glucose 114 (60-115) mg/dL Calcium 8.1 L D (8.4-10.2) mg/dL Total Bilirubin 0.2 (0.0-1.0) mg/dL AST 26 (5-31) U/L ALT 14 (0-31) U/L Alkaline Phosphatase 71 (39-117) U/L Total Creatine Kinase 151 H (26-140) U/L C-Reactive Protein 0.77 H (< or = 0.50) mg/dL Total Protein 5.9 L (6.5-8.0) g/dL Albumin 3.4 L (3.5-5.0) g/dL Independent Historian Clinical information obtained from an independent historian. History obtained from or confirmed by: Other (Daughter) External Record Review External record reviewed: Outpatient record Prescription Management I considered prescription management with: Other (See narrative above) Chronic Conditions Patient?s care impacted by: Other (See narrative above) Discharge Plan Discharge Clinical Impression: Left leg pain Patient Disposition: Home, Self-Care Additional Instructions: There is no sign of blood clot on her ultrasound. Her blood testing is very reassuring. She has a good pulse in the left foot. Please continue her regular medication and follow up with her regular doctor and any other doctors you has been recommended to see. Return to the emergency room if significantly worse. Prescriptions: No Action (DME) gloves Large See Rx Instructions .Route .MEDSUPPLY Qty: 1 0RF Rx Instructions: As directed (DME) disposable bed pads See Rx Instructions .Route .MEDSUPPLY Qty: 1 0RF Rx Instructions: As directed 4 per day loratadine 10 mg tablet 10 mg PO DAILY PRN (Reason: allergy symptoms) 90 Days Qty: 90 1RF (DME) miscellaneous medical supply Misc 0 .Route Qty: 1 0RF Rx Instructions: Power Lift Chair - As directed - to use indefinatly albuterol sulfate 2.5 mg /3 mL (0.083 %) solution for nebulization 2.5 mg continuous nebulization QID PRN (Reason: shortness of breath or wheezing) Qty: 90 0RF (DME) Nebulizer machine See Rx Instructions .Route .MEDSUPPLY Qty: 1 0RF Rx Instructions: As directed (DME) Nebulizer machine See Rx Instructions .Route .MEDSUPPLY Qty: 1 0RF Rx Instructions: As directed cholecalciferol (vitamin D3) 25 mcg (1,000 unit) capsule 25 mcg PO DAILY 90 Days Qty: 90 3RF zolpidem 10 mg tablet 10 mg PO BEDTIME PRN (Reason: sleep) 30 Days Qty: 30 2RF (DME) Ultra-Light Rollator Misc See Rx Instructions .Route Qty: 1 0RF Rx Instructions: As directed (DME) Walker with seat See Rx Instructions .Route .MEDSUPPLY Qty: 1 0RF Rx Instructions: As directed mupirocin 2 % ointment 1 appl topical TID Qty: 50 2RF tramadol 50 mg tablet 50 mg PO BID PRN (Reason: pain) 30 Days Qty: 60 0RF acetaminophen 650 mg tablet extended release 650 mg PO Q8H PRN (Reason: pain) 30 Days Qty: 90 3RF alclometasone 0.05 % cream 0.05 appl topical DAILY Qty: 45 0RF fluticasone propion-salmeterol [Advair HFA] 115-21 mcg/actuation HFA aerosol inhaler 2 puff inhalation BID Qty: 12 3RF Rx Instructions: administer with spacer candesartan 32 mg tablet 32 mg PO DAILY Qty: 90 1RF atorvastatin 80 mg tablet 80 mg PO BEDTIME 90 Days Qty: 90 1RF oxycodone 15 mg tablet 15 mg PO BEDTIME PRN (Reason: severe pain) 14 Days Qty: 14 0RF Rx Instructions: Partial Fill upon patient request. lubiprostone [Amitiza] 24 mcg capsule 24 mcg PO BID Qty: 60 1RF mirtazapine 15 mg tablet 15 mg PO BEDTIME 90 Days Qty: 90 0RF sennosides [senna] 8.6 mg tablet 8.6 mg PO DAILY Qty: 90 4RF calcium carbonate-vit D3-min 600 mg calcium- 200 unit tablet 1 tab PO DAILY (DME) Aerochamber MV Spacer See Rx Instructions .Route Qty: 1 0RF Rx Instructions: As directed fluticasone propionate [Flovent HFA] 110 mcg/actuation HFA aerosol inhaler 2 puff inhalation BID 30 Days Qty: 12 5RF pregabalin 225 mg capsule 225 mg PO BID Qty: 60 0RF lactulose 20 gram/30 mL solution 20 g PO DAILY PRN (Reason: constipation) Qty: 420 0RF mineral oil [Fleet Mineral Oil] Enema [address] DAILY PRN (Reason: constipation) Qty: 266 0RF Rx Instructions: discard any unused portion doxycycline hyclate 100 mg capsule 100 mg PO BID Qty: 14 0RF Rx Instructions: photosensitivity lidocaine 5 % ointment 1 appl topical TID PRN (Reason: pain) Qty: 50 1RF naproxen 500 mg tablet 500 mg PO DAILY PRN (Reason: pain) Qty: 20 0RF Rx Instructions: Take with food Referrals: Milton Ackerman MD [Primary Care Provider, Internal Medicine] Interventions: ED Discharge Assessment Last Done: 01/26/25 10:47 Discharge Date/Time: 01/26/25 10:48 Print Language: Bulgarian
[2025-01-26 03:00] VITALS: BP 170/70; PULSE 64; RESP 14; TEMP 36.2; O2SAT 96
--- NOTE | 2025-01-26 04:03 | PC.NURSE ---
trial ambulation. PT having great difficulty wearing weight on legs. Reports she feels like wounds on her feet are opening as she walks. States pain has not decreased. Notified provider
[2025-01-26 04:35] LABS: Hematocrit 34.0 % (37.0-47.0); Hemoglobin 10.9 g/dl (12.0-16.0); Imm Gran Abs Auto 0.03 X10*3/uL (0.00-0.03); Imm Gran Pct Auto 0.5 % (0.0-0.4); Lymphocytes Absolute Auto 1.5 X10*3/uL (1.2-4.9); MANUAL DIFF FLAG NO; Mean Corpuscular HGB Conc 32.1 g/dl (31.0-35.0); Mean Corpuscular Hemoglobin 28.2 pg (27.0-33.0); Mean Corpuscular Volume 88.1 fL (80.0-98.0); NRBC Abs Auto 0.000 X10*3/uL (0.0-0.012); NRBC Pct Auto 0.0 /100WBC (0.0-0.2); Platelet Count 223 X10*3/uL (160-400); Red Blood Count 3.86 X10*6/uL (4.20-5.50); White Blood Count 6.1 X10*3/uL (4.8-10.8)
[2025-01-26 04:50] LABS: Alanine Aminotransferase 14 U/L (0-31); Albumin Level 3.4 g/dL (3.5-5.0); Alkaline Phosphatase 71 U/L (39-117); Anion Gap 11 (12-20); Aspartate Amino Transferase 26 U/L (5-31); Blood Urea Nitrogen 21 mg/dL (9-16); Calcium 8.1 mg/dL (8.4-10.2); Carbon Dioxide 30 mmol/L (22-29); Chloride 109 mmol/L (96-108); Creatinine Clr Calc Pharmacy 58.7; Estimated Glomerular Filt Rate > 60; Potassium 4.4 mmol/L (3.3-5.1); Sodium 146 mmol/L (135-145); Total Protein 5.9 g/dL (6.5-8.0)
[2025-01-26 06:12] VITALS: BP 151/80; PULSE 66; RESP 16; TEMP 36.5; O2SAT 97
--- NOTE | 2025-01-26 08:04 | PC.NURSE ---
Addendum entered by Kirstin Minor RN 01/26/25 08:05: Patient is a 79-year-old female with past medical history of varicose veins, MGUS, leg ulcers, depression, anxiety, asthma, GERD, paroxysmal atrial fibrillation not on anticoagulants, hypertension, hyperlipidemia who presents emergency department for evaluation of acute on chronic pain to the lower extremities. Patient's daughter provides history, was offered medical practitioners WILFRED patient however declines. Daughter states it for the past 3-4 years she has been experiencing ongoing issues with bilateral lower extremity pain and skin lesions. She states that at times they are unilateral other times they are bilateral, does not uncommon for them to have redness surrounding them. She has been seen by many specialists including vascular, rheumatology, Hematology/Oncology, as well as primary care provider. Reports that she could not walk due to the pain which prompted her coming to the emergency department today. Unilateral swelling, recent injury, chest pain, shortness of breath, fevers, chills. Pain is worse currently in the left lower extremity. Skin lesions are scabbed and dried. Patient alert and oriented, salvadorean speaking. Lungs clear bilat. Respirations even and non-labored. Abdomen large soft, non-tender with positive bowel sounds. Positive pedal pulses with no edema. Multiple scabbed lesions noted to bilat LE with assoc pain. Original Note: Medical History Bilateral primary osteoarthritis of knee Constipation Osteoporosis Allergic rhinitis Insomnia Osteoarthritis Obesity (BMI 30-39.9) Depression Anxiety Vitamin D deficiency GERD without esophagitis Asthma Paroxysmal atrial fibrillation Pure hypercholesterolemia Benign essential hypertension PAF (paroxysmal atrial fibrillation)
[2025-01-26 08:52] VITALS: BP 162/88; PULSE 61; RESP 17; TEMP 35.6; O2SAT 96
--- NOTE | 2025-01-26 09:20 | PC.NURSE ---
U/S at the bedside
[2025-01-26 10:47] VITALS: BP 162/88; PULSE 61; RESP 17; TEMP 35.6; O2SAT 96
== END 2025-01-26 10:48 | disposition home or self-care (01) ==
PROVIDERS: Nurse Practitioner Family; Emergency Provider Emergency Medicine; PCP Internal Medicine
DX: M79.662 Pain in left lower leg (principal); L97.929 Non-pressure chronic ulcer of unspecified part of left lower leg with unspecified severity; L97.919 Non-pressure chronic ulcer of unspecified part of right lower leg with unspecified severity; I48.0 Paroxysmal atrial fibrillation; I10 Essential (primary) hypertension; E78.5 Hyperlipidemia, unspecified
CPT/HCPCS: 36415; 80053; 82550; 85025; 85652; 86140; 93971; 99284

== ENCOUNTER → 2025-01-26 04:02 | Outpatient (BNV) | payer OTHER, SELFPAY | PROVIDERS: Emergency Provider Emergency Medicine; PCP Internal Medicine; Visit Provider Radiology Diagnostic Radiology | DX: M79.662 Pain in left lower leg (principal) | CPT/HCPCS: 93971 ==

== ENCOUNTER 2025-02-03 16:32 | Outpatient (AMB) | payer OTHER, SELFPAY ==
--- OUTSIDE RECORDS SUMMARY | 2025-02-03 16:35 | XMS_ITS | Referral Summary ---
Author Organization [facility] Address [address] [place] [address] Care Team Providers Care Photographer Aerial Name Role Phone Tyron Milton Primary Care Provider [phone] Allergies Active Allergy Reactions Criticality Noted Date [...] Treatment Not on file Insurance ANGELICA WALDEN [id number] [facility] Care Teams Photographer Aerial Relationship Specialty Start Date End Date Milton Ackerman [address] [place] [address] [place] [address] PCP - General Internal Medicine 01/20/24
--- OUTSIDE RECORDS SUMMARY | 2025-02-03 16:35 | XMS_ITS | Clinical Summary ---
Author Organization [facility] Address [address] [place] [id number] Phone Care Team Providers Care Plodding Machine Operator Name Role Phone Milton Ackerman MD Primary Care Provider [phone] Medications gabapentin (NEURONTIN) 100 MG capsule Take 2 capsules (200 mg total) by mouth 3 (three) times a day. 180 capsule 05/23/2024 Active Social History Tobacco Use Types Packs/Day Years Used Date Smoking Tobacco: Never Assessed Education Answer Date Recorded Are you interested in more education? Not on rey e 05/23/2024 Are you concerned about learning? Not on file 05/23/2024 No 05/23/2024 No 05/23/2024 Digital Access Answer Date Recorded No 05/23/2024 No 05/23/2024 Reliable internet access at home? Not on file 05/23/2024 Device with a working camera? Not on file Intimate Partner Violence Answer Date R ecorded Are you denied basic needs s uch as food, clothing, or medical care? No 05/23/2024 In the past 12 months have y ou been in a relationship with a person who hurts, threatens, or tries to control you? No 05/23/2024 Are you denied basic needs s uch as food, clothing, or medical care? No 05/23/2024 In the past 12 months have y ou been in a relationship with a person who hurts, threatens, or tries to control you? No 05/23/2024 Comments Unknown Sex and Gender Information Value Date Recorded Sex Assigned at Not on file Legal Sex Female 3:11 PM EST Gender Identity Not on file Sexual Orientation Not on file Last Filed Vital Signs Vital Sign Reading Time Taken Comments Blood Pressure 164/98 05/23/2024 5:12 PM EST Pulse 70 05/23/2024 5:12 PM EST Temperature 36.4 C (97.5 F) 05/23/2024 5:12 PM EST Respiratory Rate 18 05/23/2024 5:12 PM EST Oxygen Saturation 96% 05/23/2024 5:12 PM EST Inhaled Oxygen Concentration - - Weight 82.6 kg (182 lb) 05/23/2024 4:05 PM EST Height 154.9 cm (5' 1 ) 05/23/2024 4:05 PM EST Body Mass Index 34.39 05/23/2024 4:05 PM EST Plan of Treatment Health Maintenance Due Date Last Done Comments Adult Td,Tdap Booster 1945 LIPID PANEL 1945 DEPRESSION SCREENING 1957 SMOKING Hx and SMOKELESS TOB ACCO SCREENING 1958 HEPATITIS C SCREENING 1963 PNEUMOCOCCAL VACCINES (50+ y ears) (1 of 1 - PCV) 1995 ZOSTER VACCINES (1 of 2) 1995 OSTEOPOROSIS SCREENING INITI AL (ONE-TIME) 2010 RSV VACCINE (1 - 1-dose 75+ series) 2020 COVID-19 VACCINE ( - 2023-2 5 season) 2024 HEPATITIS A VACCINES Aged Out No long er eligible based on patient's age to complete this topic HIB VACCINES Aged Out No longer eligi ble based on patient's age to complete this topic MENINGOCOCCAL VACCINES (ACWY) Aged Out No longer eligible based on patient's age to complete this topic MENINGOCOCCAL VACCINES (B) Aged Out N o longer eligible based on patient's age to complete this topic Medical Devices Not on file Insurance [address] [place] [id number] [employer] MEDICARE PART A & B [facility] MEDICARE REPLACEMENT [facility] MEDICARE PART A & B [facility]ILE [facility] [place] MEDICARE REPLACEMENT [facility] MEDICARE PART A & B [facility] RE[facility]EMENT [address] [place] [id number] [place] MEDICARE PART A & B Member Subscriber Plan / Payer (Ef fective 2013-Present) Name:Saira Alaniz Member ID:[id number] Relation to Subscriber:Self Name:Saira Alaniz Subscriber ID:[id number] Payer ID:[id number] Group ID:Not on file Type:Medicare Address: [facility] [address] [place] [phone] [facility] MEDICARE REPLACEMENT [address] [place] [id number] [facility] MEDIC[facility] PART A & B [facility] MEDICARE REPLACEMENT [facility] MEDICARE PART A & B YAMILE LIN [facility] [employer] MEDICARE REPLACEMENT Care Teams Plodding Machine Operator Relationship Specialty Start Date End Date Milton Ackerman MD [address] [place] [address] Dr Ball [place], [place] [id number] PCP - General Internal Medicine 05/23/24 Additional Source Comments The information contained in this document represents components of the legal health record. It is not the complete legal health record.[facility]
--- OUTSIDE RECORDS SUMMARY | 2025-02-03 16:35 | XMS_ITS | Clinical Summary ---
Author Organization [facility] Address [address] [place] [address] Care Team Providers Care Industrial Engineering Technician Name Role Phone Milton Ackerman MD Primary Care Provider [phone] Medications Medication Sig Dispensed Refills Start Date [...] age to complete this topic Care Teams Industrial Engineering Technician Relationship Specialty Start Date End Date Milton Ackerman MD [address] [place] [address] [address] [facility] [place], [place] [id number] PCP - General Internal Medicine 02/18/23
--- OUTSIDE RECORDS SUMMARY | 2025-02-03 16:35 | XMS_ITS | Clinical Summary ---
Author Organization [employer] Address [address] [place] [address] Care Team Providers Care Child Care Team Lead Name Role Phone Unavailable Primary Care Provider [...]
--- NOTE | 2025-02-03 16:36 | MHC.PC.OV ---
Vital Signs 02/03/25 16:37 Weight 184 lb 2 oz BP 158/86 H Blood Pressure Location Lt brachial Position Sitting Pulse 77 Temp 97.2 F Temp Source Temporal Artery Scan Pulse Oximetry (%) 95 Intake Visit Reasons: open wounds [employer] Supply Supervisor Required: No Accompanied by: Daughter Allergies Penicillins Allergy (Intermediate, Verified 02/03/25 17:23) Hives oxaprozin (From Daypro) Allergy (Unknown, Verified 02/03/25 17:23) RASH hydroxychloroquine Adverse Reaction (Intermediate, Verified 02/03/25 17:23) Abdominal Pain budesonide (Symbicort) Adverse Reaction (Unknown, Verified 02/03/25 17:23) nausea and vomiting Medication List - Last Reconciled 02/03/25 by Milton Ackerman MD acetaminophen ER 650 mg PO Q8H PRN 30 days Advair HFA 115-21 mcg/actuation (fluticasone propion-salmeterol) 2 puffs inhalation BID NS albuterol sulfate 2.5 mg (3 mL) continuous nebulization QID PRN alclometasone 0.05% 0.05 appl topical DAILY atorvastatin 80 mg PO BEDTIME 90 days calcium carbonate-vit D3-min 600 mg calcium- 200 unit 1 tab PO DAILY candesartan 32 mg PO DAILY cholecalciferol (vitamin D3) 25 mcg PO DAILY 90 days [disposable bed pads As directed 4 per day ] doxycycline hyclate 100 mg PO BID fluticasone propionate 110 mcg/actuation (Flovent HFA) 2 puffs inhalation BID 30 days [gloves As directed] inhalational spacing device (Aerochamber MV spacer) As directed lactulose 20 grams (30 mL) PO DAILY PRN lidocaine 5% 1 appl topical TID PRN loratadine 10 mg PO DAILY PRN 90 days lubiprostone (Amitiza) 24 mcg PO BID mineral oil (Fleet Mineral Oil enema) 133 mL MD DAILY PRN mirtazapine 15 mg PO BEDTIME 90 days miscellaneous medical supply Power Lift Chair - As directed - to use indefinatly mupirocin 2% 1 appl topical TID naproxen 500 mg PO DAILY PRN [Nebulizer machine As directed] [Nebulizer machine As directed] oxycodone 15 mg PO BEDTIME PRN 14 days pregabalin 225 mg PO BID sennosides (senna) 8.6 mg PO DAILY tramadol 50 mg PO BID PRN 30 days walker (Ultra-Light Rollator misc) As directed [Walker with seat As directed] zolpidem 10 mg PO BEDTIME PRN 30 days Tobacco use date assessed: 02/03/25 Fall risk assessment: 1 Fall in past year Last assessed Fall Risk: 02/03/25 Dental Screening Dental Screen Date: 01/21/25 Did you have a dental visit in the last 12 months?: No Did you have a dental problem in the last 6 months where you did not have access to dental care?: No Was dental information given to patient?: No HPI open wounds HPI Details Patient comes in today again complaining of breaking out in several painful superficial ulcers/lesions on both of her lower extremities This has been going on for the past 2 to 3 years Patient has undergone extensive testing for her recurrent painful lower extremity ulcers over the past year and has been seen and evaluated by multiple specialists both in the [facility] and also at [facility] in [place], including rheumatology, Dermatology, Neurology and vascular surgery and so far, no identifiable cause of her ulcers have been found She feels very frustrated by this and is currently looking for a referral to see some specialists in [place] for further evaluation and recommendations She is currently looking for some prescriptions to help provide her with some relief of her symptoms and needs a couple of her prescriptions refilled as well She is also looking for a prescription for a Rollator with seat and would like to have this sent over to [facility] in [place] She denies any fever, headaches or dizziness Denies any chest pains, no increased shortness of breath No other acute complaints or symptoms are noted [facility] Medical History Bilateral primary osteoarthritis of knee Constipation Osteoporosis Allergic rhinitis Insomnia Osteoarthritis Obesity (BMI 30-39.9) Depression Anxiety Vitamin D deficiency GERD without esophagitis Asthma Paroxysmal atrial fibrillation Pure hypercholesterolemia Benign essential hypertension PAF (paroxysmal atrial fibrillation) Surgical History History of colonoscopy Family History Father CVD (cardiovascular disease) Stroke Mother Medical history unknown Brother Bone cancer Sister Cancer of mouth Social History Housing: Apartment Alcohol intake: never Patient Tobacco Use Status: Never used Tobacco e-Cigarette/Vaping Use: Never Used Second Hand Smoke Exposure: Yes service: No Current occupational status: disabled Cognitive needs: No Hearing needs: No Vision needs: Yes (glasses) Questionnaire PHQ-9 Over the last 2 weeks, how often have you been bothered by any of the following problems? 1. Little interest or pleasure in doing things: not at all 2. Feeling down, depressed, or hopeless: several days 3. Trouble falling or staying asleep, or sleeping too much: several days 4. Feeling tired or having little energy: several days 5. Poor appetite or overeating: not at all 6. Feeling bad about yourself - or that you are a failure or have let yourself or your family down: not at all 7. Trouble concentrating on things, such as reading the newspaper or watching television: not at all 8. Moving or speaking so slowly that other people could have noticed. Or the opposite - being so fidgety or restless that you have been moving around a lot more than usual: not at all 9. Thoughts that you would be better off or of hurting yourself in some way: not at all Total score: 3 Depression Screening Interpretation: Positive Depression Screening Follow-up: Existing condition and In treatment Depression Screening Done: Yes 81710 - PHQ-9 Billing: Yes Source: Developed by Drs. Abisai Peñaloza, Celina Simeon, Ayad Briceno and colleagues, with an educational elif from [employer]. Thrive Questionnaire Date Thrive assessed: 02/03/25 I am a: Patient What is your living situation today?: I have a steady place to live Within the past 12 months, did the food you bought not last and you didn't have the money to get more?: Never true Within the past 12 months, did you worry whether your food would run out before you got money to buy more?: Never true Do you have trouble paying for medicines?: No Do you have trouble getting transportation to medical appointments?: No Do you have trouble paying your heating and electricity bill?: No Do you have trouble taking care of your child, family member or friend?: No Do you have trouble with day-to-day activities such as bathing, preparing meals, shopping, managing finances, etc.?: Yes Are you currently unemployed and looking for a job?: No Are you interested in more education?: No Please select the resources that you would like help with: None Currently or been in a relationship where the following occur: No concerns reported THRIVE Score: 0 AUDIT C Alcohol Use Questionnaire (AUDIT-C) 1. How often do you have a drink containing alcohol?: Never 3. How often do you have six or more drinks on one occasion?: Never Total Score: 0 Score Reviewed/Action Taken: Yes FARIDEH-7 AMB Questionnaire FARIDEH-7 Date FARIDEH - 7 assessed: 02/03/25 Source: Developed by Drs. Abisai Peñaloza, Celina Simeon, Ayad Briceno and colleagues, with an educational elif from [employer]. Review of Systems Const Denies chills, Reports fatigue, Denies fever(s) and Denies headache(s) ENT Denies dysphagia, Denies dizziness, Denies otalgia, Denies headache(s), Denies neck pain, Denies odynophagia and Denies sore throat Card Denies chest pain, Denies palpitations and Denies dyspnea Resp Denies chest congestion, Denies cough and Denies dyspnea GI Denies abdominal pain, Reports constipation (at times), Denies dysphagia, Denies heartburn, Denies diarrhea, Denies nausea, Denies odynophagia and Denies vomiting Denies difficulty voiding, Denies nocturia, Denies dysuria and Reports urinary incontinence (mostly urge incontinence, especially at night) Musc Denies back pain, Reports arthralgias (involving multiple joints, especially in both knees) and Denies neck pain Skin/Breast Denies rash and Reports skin ulcer (recurrent multiple painful sores/ulcers on both distal lower legs & ankles) Neuro Denies dizziness and Denies headache(s) Endo Reports fatigue and Denies palpitations Physical exam (Primary Care) Vital Signs: Last Vital Signs Temp 97.2 F 02/03/25 16:37 Pulse 77 02/03/25 16:37 BP 158/86 H 02/03/25 16:37 Pulse Ox 95 02/03/25 16:37 Tobacco/Smoking Status: Tobacco use Status Tobacco use date assessed 02/03/25 02/03/25 16:43 Patient Tobacco Use Status Never used Tobacco 02/03/25 16:43 e-Cigarette/Vaping Use Never Used 02/03/25 16:43 Depression Screening Interpretation: Positive Depression Screening Follow-up: Existing condition and In treatment Thrive Assessment: Date of Thrive Assessment Date Thrive assessed 02/03/25 02/03/25 16:43 Currently or been in a relationship where the following occur: No concerns reported Const General: no acute distress and alert HENMT Throat: Yes posterior oropharynx normal and Yes tonsils normal Neck Neck: Yes supple and No lymphadenopathy Thyroid: Thyroid normal Resp Auscultation: clear to auscultation bilaterally, no rales and no wheezes Cardio Rate: regular rate Rhythm: regular rhythm Heart sounds: no murmurs GI Palpation (GI): Soft to palpation and nontender Auscultation: normal bowel sounds General: Yes no CVA tenderness Back/Spine/Pelvis Back: no CVA tenderness Thoracic/Lumbar Spine: No lumbar spinal tenderness Skin Other: (+) multiple, tender, non-draining ulcers/sores over both lower legs and around both ankles, with scattered patchy discoloration noted over both lower legs as well Rashes: no rashes Extrem General: Yes no clubbing, cyanosis or edema Coding Level of Care Code Est Pt Level 4 (83509) Diagnoses Ulcers of both lower extremities, unspecified ulcer stage L97.919; L97.929 Non-pressure ulcer stage: unspecified non-pressure ulcer stage Benign essential hypertension I10 Paroxysmal atrial fibrillation I48.0 Moderate persistent asthma without complication J45.40 Asthma severity: moderate Asthma persistence: persistent Asthma complication type: uncomplicated Seasonal allergic rhinitis due to pollen J30.1 Allergic rhinitis trigger: pollen Allergic rhinitis seasonality: seasonal GERD without esophagitis K21.9 Osteoporosis without current pathological fracture, unspecified osteoporosis type M81.0 Osteoporosis type: unspecified Presence of current pathological fracture: without current pathological fracture Primary osteoarthritis involving multiple joints M89.49 Insomnia, unspecified type G47.00 Insomnia type: unspecified Anxiety F41.9 Episode of recurrent major depressive disorder, unspecified depression episode severity F33.9 Depression Type: major depressive disorder Major depression recurrence: recurrent Active/Remission status: currently active Major depression episode severity: unspecified Obesity (BMI 30-39.9) E66.9 Additional Codes PHQ-9 - 81166 - PHQ-9 Billing: Yes ([id number]) Assessment & Plan Assessment & Plan (1) Ulcers of both lower extremities: Code(s): L97.919 - Non-pressure chronic ulcer of unspecified part of right lower leg with unspecified severity; L97.929 - Non-pressure chronic ulcer of unspecified part of left lower leg with unspecified severity Category: Medical Qualifiers: Non-pressure ulcer stage: unspecified non-pressure ulcer stage Qualified Code(s): L97.919 - Non-pressure chronic ulcer of unspecified part of right lower leg with unspecified severity; L97.929 - Non-pressure chronic ulcer of unspecified part of left lower leg with unspecified severity Plan: Patient has been breaking out in recurrent painful ulcers on both of her lower extremities for the past couple of years She has been seen and evaluated by dermatology, vascular surgery, neurology and rheumatology extensively for these over the past 1 to 2 years and they have ruled out dermatologic, neuropathic, vascular and rheumatologic etiologies for her recurrent ulcers - tests have all come back unrevealing so far She was trialed unsuccessfully with Gabapentin up to 800 mg TID by neurology and was switched over to Pregabalin, which is currently at 225 mg BID but patient reports that this is still not helping much As she is currently breaking out again in painful ulcers on both lower extremities, will start her back empirically on Doxycycline 100 mg BID x 7 days and Prednisone 20 mg QD x 5 days Per her request, will try referring her to rheumatology in [place] ([facility] [place] for further evaluation as her presentation is highly suggestive of a vasculitic condition even though tests done on her so far have been negative Have advised patient that ultimately, this will still depend on her health insurance if they will approve of her [id number] referral or not but they can certainly contact her health insurance company and plead their case with them (2) Benign essential hypertension: Code(s): I10 - Essential (primary) hypertension Category: Medical Plan: Reinforced low-sodium diet - goal is systolic BP of at least 140 mm or less Continue Candesartan 32 mg QD; HCTZ was previously discontinued (3) Paroxysmal atrial fibrillation: Code(s): I48.0 - Paroxysmal atrial fibrillation Category: Medical Plan: Patient currently remains in sinus rhythm and is asymptomatic from a cardiac standpoint Echocardiogram done in November 2024 came out normal She was also referred to cardiology again for evaluation for any possible cardiac etiology for her recurrent painful lower extremity ulcers and she is scheduled to be seen by Cardiology sometime in March 2025 (4) Asthma: Code(s): J45.909 - Unspecified asthma, uncomplicated Category: Medical Qualifiers: Asthma severity: moderate Asthma persistence: persistent Asthma complication type: uncomplicated Qualified Code(s): J45.40 - Moderate persistent asthma, uncomplicated Plan: Controlled - continue Advair HFA 115-21 mcg 2 inhalations BID and Albuterol HFA 1 to 2 inhalations Q 6 hours PRN States that she uses her nebulizer only when needed (5) Allergic rhinitis: Code(s): J30.9 - Allergic rhinitis, unspecified Category: Medical Qualifiers: Allergic rhinitis trigger: pollen Allergic rhinitis seasonality: seasonal Qualified Code(s): J30.1 - Allergic rhinitis due to pollen Plan: Continue Loratadine 10 mg QD PRN (6) GERD without esophagitis: Code(s): K21.9 - Gastro-esophageal reflux disease without esophagitis Category: Medical Plan: Dietary restrictions reinforced Continue Omeprazole 40 mg QD (7) Osteoporosis: Comment: DEXA 04/2024: AP Spine -1.4, Left femur neck -3.2, Left femur total -3.1 Code(s): M81.0 - Age-related osteoporosis without current pathological fracture Category: Medical Qualifiers: Osteoporosis type: unspecified Presence of current pathological fracture: without current pathological fracture Qualified Code(s): M81.0 - Age-related osteoporosis without current pathological fracture Plan: Repeat BMD done in July 2022 revealed that patient's BMD has declined significantly from her previous scan in July 2017, especially in the left femur, which declined by 23.2% from previous Her A/P spine BMD is mostly unchanged and her lowest T-score is now at -3.2 in the femoral neck S/P Tx with Alendronate - Rx has been discontinued recently Patient has been on Alendronate 70 mg Q week for years (unclear when she actually started taking it but most likely > 5 years) and we have instructed patient earlier this year to just finish up her current supply of Alendronate, then D/C the Rx We will also consider having her see endocrinology for her osteoporosis once her current issues with her lower extremity ulcers are under better control (8) Primary osteoarthritis involving multiple joints: Code(s): M89.49 - Other hypertrophic osteoarthropathy, multiple sites Category: Medical Plan: Mostly involving her right knee -? she has received cortisone injection from Orthopedics in the past without any significant relief Have advised her again that physical therapy can help with her knee pain if her symptoms get worse -? patient does not want to pursue this for now, especially with her recurrent painful ulcers ongoing currently Continue Tramadol 50 mg TID PRN and Pregabalin 225 mg BID Follow-up with Orthopedics as scheduled or as needed (9) Insomnia: Code(s): G47.00 - Insomnia, unspecified Category: Medical Qualifiers: Insomnia type: unspecified Qualified Code(s): G47.00 - Insomnia, unspecified Plan: Sleep hygiene reinforced Continue Zolpidem 10 mg Q HS PRN - Rx refilled (10) Anxiety: Code(s): F41.9 - Anxiety disorder, unspecified Category: Medical Plan: Continue Lorazepam 0.5 mg 2 to 3 times a day as needed Mirtazapine also appears to be helping (11) Depression: Code(s): F32.9 - Major depressive disorder, single episode, unspecified Category: Medical Qualifiers: Depression Type: major depressive disorder Major depression recurrence: recurrent Active/Remission status: currently active Major depression episode severity: unspecified Qualified Code(s): F33.9 - Major depressive disorder, recurrent, unspecified Plan: Continue Mirtazapine 15 mg Q HS (12) Obesity (BMI 30-39.9): Code(s): E66.9 - Obesity, unspecified Category: Medical Plan: Reinforced diet; exercise and weight loss are unrealistic given patient's current ongoing issues and multiple comorbidities Plan Follow up as scheduled in April 2025 Orders: Referrals Rheumatology Referral L97.909 - Non-pressure chronic ulcer of unspecified part of unspecified lower leg with unspecified severity Medications: New doxycycline hyclate 100 mg PO BID 14 caps 0RF 7 days Refilled prednisone 20 mg PO DAILY 5 tabs 0RF 5 days M79.89 - Other specified soft tissue disorders zolpidem 10 mg PO BEDTIME PRN 30 tabs 2RF sleep 30 days tramadol 50 mg PO BID PRN 60 tabs 0RF pain 30 days M19.90 - Unspecified osteoarthritis, unspecified site walker (Ultra-Light Rollator [facility] [place] [place]) As directed 1 ea 0RF 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
[2025-02-03 16:37] VITALS: BP 158/86; PULSE 77; TEMP 36.2; O2SAT 95
== END 2025-02-03 17:38 | disposition home or self-care (01) ==
LOC: HO.HMCH 16:33
PROVIDERS: PCP Internal Medicine; Visit Provider Internal Medicine
DX: I10 Essential (primary) hypertension (principal); L97.919 Non-pressure chronic ulcer of unspecified part of right lower leg with unspecified severity; L97.929 Non-pressure chronic ulcer of unspecified part of left lower leg with unspecified severity; I48.0 Paroxysmal atrial fibrillation; J45.40 Moderate persistent asthma, uncomplicated; J30.1 Allergic rhinitis due to pollen; K21.9 Gastro-esophageal reflux disease without esophagitis; M81.0 Age-related osteoporosis without current pathological fracture; M89.49 Other hypertrophic osteoarthropathy, multiple sites; G47.00 Insomnia, unspecified; F41.9 Anxiety disorder, unspecified; F33.9 Major depressive disorder, recurrent, unspecified

== ENCOUNTER → 2025-02-03 16:32 | Outpatient (BNVA) | payer OTHER, SELFPAY | PROVIDERS: PCP Internal Medicine; Visit Provider Internal Medicine | DX: I10 Essential (primary) hypertension (principal); I48.0 Paroxysmal atrial fibrillation; L97.919 Non-pressure chronic ulcer of unspecified part of right lower leg with unspecified severity; L97.929 Non-pressure chronic ulcer of unspecified part of left lower leg with unspecified severity; J45.40 Moderate persistent asthma, uncomplicated; J30.1 Allergic rhinitis due to pollen; K21.9 Gastro-esophageal reflux disease without esophagitis; M81.0 Age-related osteoporosis without current pathological fracture; M89.49 Other hypertrophic osteoarthropathy, multiple sites; G47.00 Insomnia, unspecified; F41.9 Anxiety disorder, unspecified; F33.9 Major depressive disorder, recurrent, unspecified; E66.9 Obesity, unspecified; M79.89 Other specified soft tissue disorders; M19.90 Unspecified osteoarthritis, unspecified site; M25.511 Pain in right shoulder; M25.552 Pain in left hip | CPT/HCPCS: 96127; 99212 ==

== ENCOUNTER 2025-02-25 15:16 | Emergency (ER) | payer OTHER, SELFPAY ==
--- NOTE | ~2025-02-25 | XR_ITS ---
EXAMINATION: XR CHEST CLINICAL INFORMATION: sob COMPARISON: Chest x-ray 03/03/2023. TECHNIQUE: Frontal view of the chest was obtained. FINDINGS: The lungs are fairly well-expanded with increased bilateral vascular markings suggestive mild congestion. Heart size is normal. No consolidation seen. No gross bony abnormality. XR/XR chest 1V IMPRESSION: Suspect bilateral pulmonary vascular congestion. Electronically signed by: Gomez Romero MD 02/25/2025 05:02 PM EDT
--- NOTE | 2025-02-25 15:20 | ED.EXTPRO ---
HPI - Extremity Problem General Chief complaint: Extremity Injury, Lower Stated complaint: MERVAT LE PAIN,NO INJURY PER EMS Time Seen by Provider: 02/25/25 15:20 Source: patient, EMS, RN notes reviewed and old records reviewed Mode of arrival: wheelchair Limitations: no limitations History of Present Illness ED Provider: Jorge Mcclain PA-C HPI Narrative: 79 yo female with history of varicose veins, chronic LE pain and wounds on chronic opiates, MGUS, depression/anxiety, PAF not on anticoagulation, GERD, HTN, HLD who presents to the ER [facility] EMS for evaluation of acute on chronic leg pain. She has chronic wound for which she goes to a wound center in [place]. She last went on Saturday and had a dressing placed to the ulcer on the back of her left lower leg. She reports today at 1pm the pain got worse so she took the dressing off. She states the pain became even more severe after that. She called 911. When the pain was severe she became SOB. She requested O2 when EMS got there. She was not hypoxic. SOB now resolved on arrival. No chest pains. She denies swelling in her legs. She reports being on a penicillin antibiotic for the last month and is planning to see a specialist in [place] soon for her leg wounds/pain. MD Complaint: extremity pain Onset (ago): hour(s) Pain Consistency: constant Location: left, right and lower extremity Severity scale (1-10): >10 Quality: burning, stabbing and sharp Radiation: none Relieving factors: nothing Exacerbating factors: palpation Associated symptoms: denies other symptoms Related Data Home Medications ?Medication ?Instructions ?Recorded ?Confirmed calcium 600 mg (as carbonate)-vit 1 tab PO DAILY 09/26/22 02/03/25 D3 5 mcg (200 unit)-minerals tablet Previous Rx's ?Medication ?Instructions ?Recorded inhalational spacing device #1 ea 04/07/21 (Aerochamber MV spacer) fluticasone propionate 110 2 puff inhalation BID 30 days #12 10/31/22 mcg/actuation HFA aerosol inhaler grams (Flovent HFA) disposable bed pads #1 ea 10/01/23 gloves #1 ea 10/01/23 loratadine 10 mg tablet 10 mg PO DAILY PRN allergy 03/22/24 symptoms 90 days #90 tabs albuterol sulfate 2.5 mg/3 mL 2.5 mg (3 mL) continuous 06/23/24 (0.083 %) solution for nebulization nebulization QID PRN shortness of breath or wheezing #90 mL Nebulizer machine #1 ea 08/07/24 Nebulizer machine #1 ea 08/12/24 cholecalciferol (vitamin D3) 25 25 mcg PO DAILY 90 days #90 caps 10/11/24 mcg (1,000 unit) capsule pregabalin 225 mg capsule 225 mg PO BID #60 caps 10/27/24 Walker with seat #1 ea 11/16/24 lactulose 20 gram/30 mL oral 20 g (30 mL) PO DAILY PRN 12/15/24 solution constipation #420 mL mineral oil (Fleet Mineral Oil 133 ml MD DAILY PRN constipation 12/15/24 enema) #266 mL mupirocin 2 % topical ointment 1 appl topical TID lower extremity 12/15/24 ulcers #50 grams doxycycline hyclate 100 mg capsule 100 mg PO BID #14 caps 12/18/24 acetaminophen 650 mg 650 mg PO Q8H PRN pain 30 days #90 01/08/25 tablet,extended release tabs alclometasone 0.05 % topical cream 0.05 appl topical DAILY #45 grams 01/08/25 Advair HFA 115 mcg-21 2 puff inhalation BID #12 grams 01/10/25 mcg/actuation aerosol inhaler (fluticasone propion-salmeterol) candesartan 32 mg tablet 32 mg PO DAILY #90 tabs 01/12/25 atorvastatin 80 mg tablet 80 mg PO BEDTIME 90 days #90 tabs 01/20/25 lidocaine 5 % topical ointment 1 appl topical TID PRN pain #50 01/21/25 grams naproxen 500 mg tablet 500 mg PO DAILY PRN pain #20 tabs 01/21/25 lubiprostone 24 mcg capsule 24 mcg PO BID #60 caps 01/25/25 (Amitiza) mirtazapine 15 mg tablet 15 mg PO BEDTIME 90 days #90 tabs 01/25/25 sennosides 8.6 mg tablet (senna) 8.6 mg PO DAILY #90 tabs 01/26/25 doxycycline hyclate 100 mg capsule 100 mg PO BID 7 days #14 caps 02/03/25 prednisone 20 mg tablet 20 mg PO DAILY 5 days #5 tabs 02/03/25 tramadol 50 mg tablet 50 mg PO BID PRN pain 30 days #60 02/03/25 tabs walker (Ultra-Light Rollator misc) #1 ea 02/03/25 zolpidem 10 mg tablet 10 mg PO BEDTIME PRN sleep 30 days 02/03/25 #30 tabs miscellaneous medical supply #1 ea 02/10/25 oxycodone 15 mg tablet 15 mg PO BEDTIME PRN severe pain 02/22/25 14 days #14 tabs Allergies Allergy/AdvReac Type Severity Reaction Status Date / Time Penicillins Allergy Intermediate Hives Verified 02/25/25 15:28 oxaprozin (From Daypro) Allergy Unknown RASH Verified 02/25/25 15:28 hydroxychloroquine AdvReac Intermediate Abdominal Verified 02/25/25 15:28 Pain budesonide (Symbicort) AdvReac Unknown nausea and Verified 02/25/25 15:28 vomiting Review of Systems Review of Systems: Yes all other systems are reviewed and are negative [facility] Past Medical History Medical History Bilateral primary osteoarthritis of knee Constipation Osteoporosis Allergic rhinitis Insomnia Osteoarthritis Obesity (BMI 30-39.9) Depression Anxiety Vitamin D deficiency GERD without esophagitis Asthma Paroxysmal atrial fibrillation Pure hypercholesterolemia Benign essential hypertension PAF (paroxysmal atrial fibrillation) Surgical History History of colonoscopy Family History Family History Father CVD (cardiovascular disease) Stroke Mother Medical history unknown Brother Bone cancer Sister Cancer of mouth Social History Social History Housing: Apartment Alcohol intake: never Patient Tobacco Use Status: Never used Tobacco e-Cigarette/Vaping Use: Never Used Second Hand Smoke Exposure: Yes Advance Directives: No Advance Directives Information Provided: Yes service: No Current occupational status: disabled Cognitive needs: No Hearing needs: No Vision needs: Yes (glasses) Physical Exam Exam: Exam: Appearance: Alert. Oriented X3, elderly female rolling around on the stretcher in pain, groaning HEENT: normal external inspection Neck: Normal inspection. Neck supple. CVS: Normal heart rate and rhythm. Pulses normal. Respiratory: No respiratory distress. Breath sounds normal. Abdomen: Obese, soft and nontender. +BS x4 Skin: Skin warm and dry. Normal skin color. Normal skin turgor. No rashes. Extremities: bilateral lower leg with hyperpigmentation c/w chronic venous stasis, no edema. several chronic appearing ulcer-type wounds scattered on the lower legs. there is a [id number] on the posterior left lower leg that is exquisitely tender, no drainage, no surrounding erythema or warmth. 2+ DP/PT pulses on the right and 1+ on the left Neuro/psych: Oriented X 3. No motor deficit. No sensory deficit. CN II-XII intact. Normal speech and cognition. Vital Signs: Vital Signs: Last Vital Signs Temp 97.9 F 02/25/25 15:44 Pulse 70 02/25/25 15:44 Resp 18 02/25/25 15:44 BP 142/70 H 02/25/25 15:44 Pulse Ox 92 02/25/25 15:44 O2 Del Method Room Air 02/25/25 15:44 BMI result Body Mass Index 29.4 Medications Administered Discontinued Medications Generic Name Dose Route Start Last Admin Trade Name Freq PRN Reason Stop Dose Admin Oxycodone HCl 5 mg 02/25/25 15:47 02/25/25 16:31 Oxycodone Hcl Immed Release 5 Mg Tablet PO 02/25/25 15:48 5 mg ONCE ONE Administration Medical Decision Making Medical Decision Making MDM Narrative: 79 yo female with history of varicose veins, chronic LE pain and wounds on chronic opiates, MGUS, depression/anxiety, PAF not on anticoagulation, GERD, HTN, HLD who presents to the ER [facility] EMS for evaluation of acute on chronic leg pain. Wounds all appear chronic and not acutely infected. She is already on PO abx. She lives home alone and has her children come and help her. She reports her pain is not well controlled at home. she states she can barely walk because of the pain. ENGINEER BOOSTER AND EXHAUSTER reviewed - she is on tramadol prescribed chronically by Dr. Kelly and it does not help. she reports she also takes oxycodone when she needs it. low suspicion for acute bacterial infection, DVT. she has 2+ pulses on the left and 1+ on the right, warm and well perfused lower legs, no evidence of limb ischemia. will get lab workup, EKG and CXR given her SOB, which is likely pain related. anticipate she may require PT evaluation and case management consult for potential short term rehab placement for her worsening pain labs showing K+ 5.5, no mention of hemolysis. EKG without changes c/w hyperkalemia. will treat with dose of lokelma workup otherwise unremarkable. pain improved after dose of oxycodone which she has at home. discussed results and plan with daughter and patient - pt is declining PT eval or need for higher level of care/help at home. does not want short term rehab. she would like to go home with her family. stable for discharge home Differential Diagnosis Differential Diagnoses: The differential diagnosis associated with the presentation includes PAD, limb ischemia, DVT, wound infection, cellulitis, neuropathy Admission/Observation Consideration of admission/observation: Escalation of care including admission/observation considered Lab Data MDM Lab Attestation statement: I reviewed the patient's lab results. no leukocytosis, hyperkalemia, chronically elevated bicarb 02/25/25 16:21 02/25/25 16:21 Labs: Lab Results 02/25/25 02/25/25 Range/Units 16:21 16:22 WBC 9.0 (4.8-10.8) X10*3/uL RBC 4.50 (4.20-5.50) X10*6/uL Hgb 12.8 (12.0-16.0) g/dl Hct 40.1 (37.0-47.0) % MCV 89.1 (80.0-98.0) fL MCH 28.4 (27.0-33.0) pg MCHC 31.9 (31.0-35.0) g/dl RDW 14.6 (11.0-16.0) % Plt Count 283 D (160-400) X10*3/uL MPV 10.6 (9.4-12.3) fL Immature Gran % (Auto) 0.3 (0.0-0.4) % Neut % (Auto) 76.0 H (45-73) % Lymph % (Auto) 15.8 L (20-40) % Lee % (Auto) 6.1 (2-11) % Eos % (Auto) 1.4 (0-4) % Baso % (Auto) 0.4 (0-2) % Lymph # (Auto) 1.4 (1.2-4.9) X10*3/uL Lee # (Auto) 0.6 (0.1-1.2) X10*3/uL Eos # (Auto) 0.1 (0.0-0.4) X10*3/uL Baso # (Auto) 0.0 (0.0-0.2) X10*3/uL Abs Immat Gran (auto) 0.03 (0.00-0.03) X10*3/uL Absolute Neuts (auto) 6.8 (2.0-8.3) x10*3/uL Absolute Nucleated RBC 0.000 (0.0-0.012) X10*3/uL Nucleated RBC % (auto) 0.0 (0.0-0.2) /100WBC ESR 16 (0-20) MM/HR Sodium 143 (135-145) mmol/L Potassium 5.5 H D (3.3-5.1) mmol/L Chloride 105 (96-108) mmol/L Carbon Dioxide 32 H (22-29) mmol/L Anion Gap 12 (12-20) BUN 34 H (9-16) mg/dL Creatinine 0.90 (0.5-1.4) mg/dL Estim Creat Clear Calc 54.8 Estimated GFR > 60 Random Glucose 100 (60-115) mg/dL Calcium 9.6 D (8.4-10.2) mg/dL Magnesium 2.3 (1.6-2.6) mg/dL Total Bilirubin 0.3 (0.0-1.0) mg/dL Direct Bilirubin 0.1 (0.0-0.5) mg/dL AST 28 (5-31) U/L ALT 22 (0-31) U/L Alkaline Phosphatase 84 (39-117) U/L Troponin I High Sens 6.3 D (<3.5-17.0) ng/L C-Reactive Protein 0.79 H (< or = 0.50) mg/dL B-Natriuretic Peptide 25 (<100) pg/mL Total Protein 7.0 (6.5-8.0) g/dL Albumin 4.3 (3.5-5.0) g/dL Independent Interpretation I performed an independent interpretation of an: EKG and Plain X-Ray Interpretation: EKG with normal sinus rhythm, vent rate 67, t wave inversions in v1 and v2 which were present on prior EKG cxr is clear without focal infiltrate or effusion Radiology Impression Discussion of test interpretation with radiology: I have reviewed the radiologist's reading. Independent Historian Clinical information obtained from an independent historian. History obtained from or confirmed by: EMS External Record Review External record reviewed: Outpatient record, Prior outpatient labs and Prior outpatient radiology Tests considered The following testing was considered but not selected: LE dopplers considered, low suspicion for DVT arterial duplex considered however legs are warm with good pulses Prescription Management I considered prescription management with: Pain Medication and Antibiotic Chronic Conditions Patient?s care impacted by: Other (PVD, chronic wounds) Social Determinants Patient?s care significantly limited by Social Determinants of Health including: Problems related to primary support group Critical Care Time Critical Care Time Critical Care Time: No Discharge Plan Discharge Clinical Impression: Venous stasis ulcers of both lower extremities, Chronic leg pain Patient Disposition: Home, Self-Care Instructions: Chronic Pain (ED), Chronic Wounds (ED) Additional Instructions: Your workup today was unremarkable potassium was slightly elevated and you were given a medication to lower it recommend following up with your PCP for repeat blood work Continue your pain management regimen at home Continue follow up with PCP, Dermatology and Wound care Recommend calling Pain Management to see if they have any other treatments that may help the pain If you develop new or worsening symptoms call 911 or come back to the ER for further evaluation. Prescriptions: No Action (DME) gloves Large See Rx Instructions .Route .MEDSUPPLY Qty: 1 0RF Rx Instructions: As directed (DME) disposable bed pads See Rx Instructions .Route .MEDSUPPLY Qty: 1 0RF Rx Instructions: As directed 4 per day loratadine 10 mg tablet 10 mg PO DAILY PRN (Reason: allergy symptoms) 90 Days Qty: 90 1RF albuterol sulfate 2.5 mg /3 mL (0.083 %) solution for nebulization 2.5 mg continuous nebulization QID PRN (Reason: shortness of breath or wheezing) Qty: 90 0RF (DME) Nebulizer machine See Rx Instructions .Route .MEDSUPPLY Qty: 1 0RF Rx Instructions: As directed (DME) Nebulizer machine See Rx Instructions .Route .MEDSUPPLY Qty: 1 0RF Rx Instructions: As directed cholecalciferol (vitamin D3) 25 mcg (1,000 unit) capsule 25 mcg PO DAILY 90 Days Qty: 90 3RF (DME) Walker with seat See Rx Instructions .Route .MEDSUPPLY Qty: 1 0RF Rx Instructions: As directed mupirocin 2 % ointment 1 appl topical TID Qty: 50 2RF acetaminophen 650 mg tablet extended release 650 mg PO Q8H PRN (Reason: pain) 30 Days Qty: 90 3RF alclometasone 0.05 % cream 0.05 appl topical DAILY Qty: 45 0RF fluticasone propion-salmeterol [Advair HFA] 115-21 mcg/actuation HFA aerosol inhaler 2 puff inhalation BID Qty: 12 3RF Rx Instructions: administer with spacer candesartan 32 mg tablet 32 mg PO DAILY Qty: 90 1RF atorvastatin 80 mg tablet 80 mg PO BEDTIME 90 Days Qty: 90 1RF lubiprostone [Amitiza] 24 mcg capsule 24 mcg PO BID Qty: 60 1RF mirtazapine 15 mg tablet 15 mg PO BEDTIME 90 Days Qty: 90 0RF sennosides [senna] 8.6 mg tablet 8.6 mg PO DAILY Qty: 90 4RF (DME) miscellaneous medical supply Misc 0 .Route Qty: 1 0RF Rx Instructions: Power Lift Chair - As directed - to use indefinatly oxycodone 15 mg tablet 15 mg PO BEDTIME PRN (Reason: severe pain) 14 Days Qty: 14 0RF Rx Instructions: Partial Fill upon patient request. calcium carbonate-vit D3-min 600 mg calcium- 200 unit tablet 1 tab PO DAILY (DME) Aerochamber MV Spacer See Rx Instructions .Route Qty: 1 0RF Rx Instructions: As directed fluticasone propionate [Flovent HFA] 110 mcg/actuation HFA aerosol inhaler 2 puff inhalation BID 30 Days Qty: 12 5RF pregabalin 225 mg capsule 225 mg PO BID Qty: 60 0RF lactulose 20 gram/30 mL solution 20 g PO DAILY PRN (Reason: constipation) Qty: 420 0RF mineral oil [Fleet Mineral Oil] Enema 133 ml MD DAILY PRN (Reason: constipation) Qty: 266 0RF Rx Instructions: discard any unused portion doxycycline hyclate 100 mg capsule 100 mg PO BID Qty: 14 0RF Rx Instructions: photosensitivity lidocaine 5 % ointment 1 appl topical TID PRN (Reason: pain) Qty: 50 1RF naproxen 500 mg tablet 500 mg PO DAILY PRN (Reason: pain) Qty: 20 0RF Rx Instructions: Take with food doxycycline hyclate 100 mg capsule 100 mg PO BID 7 Days Qty: 14 0RF prednisone 20 mg tablet 20 mg PO DAILY 5 Days Qty: 5 0RF zolpidem 10 mg tablet 10 mg PO BEDTIME PRN (Reason: sleep) 30 Days Qty: 30 2RF tramadol 50 mg tablet 50 mg PO BID PRN (Reason: pain) 30 Days Qty: 60 0RF (DME) [facility]ator [facility] See Rx Instructions .Route Qty: 1 0RF Rx Instructions: As directed Referrals: [facility] Pain Management [Provider Group, Pain Management] Milton Ackerman MD [Primary Care Provider, Internal Medicine] Print Language: Cape Verdean
[2025-02-25 15:26] VITALS: BP 140/90; PULSE 72; O2SAT 95; BMI 29.4
[2025-02-25 15:44] VITALS: BP 142/70; PULSE 70; RESP 18; TEMP 36.6; O2SAT 92
--- NOTE | 2025-02-25 15:48 | ECG_ITS ---
Test Reason : extremity Blood Pressure : */* mmHG Vent. Rate : 67 BPM Atrial Rate : 67 BPM P-R Int : 186 ms QRS Dur : 86 ms QT Int : 404 ms P-R-T Axes : 92 6 40 degrees QTcB Int : 426 ms Normal sinus rhythm Normal ECG When compared with ECG of 03-Mar-2023 20:28, No significant change was found Referred By: Ivana Mcclain Electronically Signed By: Kaleb Aden
--- OUTSIDE RECORDS SUMMARY | 2025-02-25 15:55 | XMS_ITS | Clinical Summary ---
Author Organization [employer] Address [address] [facility] [address]t [place] [address] Care Team Providers Care Talent Solutions Manager Name Role Phone Unavailable Primary Care [...]
--- OUTSIDE RECORDS SUMMARY | 2025-02-25 15:55 | XMS_ITS | Clinical Summary ---
Author Organization [facility] Address [address] [place] [address] Care Team Providers Care Distribution Lead Name Role Phone Milton Ackerman MD Primary Care Provider [phone] Medications Medication Sig Dispensed Refills Start Date [...] age to complete this topic Care Teams Distribution Lead Relationship Specialty Start Date End Date Milton Ackerman MD [address] [place] [address] [address] [facility] [place], [place] [id number] PCP - General Internal Medicine 02/18/23
--- OUTSIDE RECORDS SUMMARY | 2025-02-25 15:55 | XMS_ITS | Clinical Summary ---
Author Organization [facility] Address [address] [place] [address] Care Team Providers Care Yard Clerk Name Role Phone Tyron Milton Primary Care Provider [phone] Allergies Active Allergy Reactions Criticality Noted Date [...] of Health Annual Screening 07/15/2024 Influenza Vaccine (#1) 2025 0, 03/31/2019 Hepatitis B Vaccines Aged Out No long er eligible based on patient's age to complete this topic Insurance [facility] Care Teams Yard Clerk Relationship Specialty Start Date End Date Milton Ackerman [address] [place] [address] dr Iram Walden, [place] [address] PCP - General Internal Medicine 01/20/24
--- OUTSIDE RECORDS SUMMARY | 2025-02-25 15:55 | XMS_ITS | Clinical Summary ---
Author Organization [facility] Address [address] [place] [phone] Phone Care Team Providers Care Shipyard Painting Supervisor Name Role Phone Milton Ackerman MD Primary Care Provider [phone] Medications gabapentin (NEURONTIN) 100 MG capsule Take [...] Medical Devices Not on file Insurance [address] [place] [id number] [employer] MEDICARE PART A & B [facility] MEDICARE REPLACEMENT [facility] MEDICARE PART A & B YAMILE LIN [facility] SNP MEDICARE REPLACEMENT [facility] MEDICARE PART A & B [facility] SNP [facility] [address] [place] [phone] [place] MEDIC[place] PART A & B Member Subscriber Plan / Payer (Ef fective 2013-Present) Name:Saira Alaniz Member ID:[id number] Relation to Subscriber:Self Name:Saira Alaniz Subscriber ID:[id number] Payer ID:[id number] Group ID:Not on file Type:Medicare Address: [facility] [employer] [facility] [address] [place] [phone] [facility] MEDICARE REPLACEMENT [address] [place] [id number] [facility] & B [facility] MEDICARE REPLACEMENT [facility] MEDICARE PART A & B YAMILE LIN [employer] MEDICARE REPLACEMENT Care Teams Shipyard Painting Supervisor Relationship Specialty Start Date End Date Milton Ackerman MD [address] [place] [address] Dr Ball [place], [place] [id number] PCP - General Internal Medicine 05/23/24 Additional Source Comments The information contained in this document represents components of the legal health record. It is not the complete legal health record.[facility]
[2025-02-25 16:29] LABS: MANUAL DIFF FLAG NO
[2025-02-25 16:31] LABS: Hematocrit 40.1 % (37.0-47.0); Hemoglobin 12.8 g/dl (12.0-16.0); Imm Gran Abs Auto 0.03 X10*3/uL (0.00-0.03); Imm Gran Pct Auto 0.3 % (0.0-0.4); Lymphocytes Absolute Auto 1.4 X10*3/uL (1.2-4.9); Mean Corpuscular HGB Conc 31.9 g/dl (31.0-35.0); Mean Corpuscular Hemoglobin 28.4 pg (27.0-33.0); Mean Corpuscular Volume 89.1 fL (80.0-98.0); NRBC Abs Auto 0.000 X10*3/uL (0.0-0.012); NRBC Pct Auto 0.0 /100WBC (0.0-0.2); Platelet Count 283 X10*3/uL (160-400); Red Blood Count 4.50 X10*6/uL (4.20-5.50); White Blood Count 9.0 X10*3/uL (4.8-10.8)
[2025-02-25] MEDS: oxyCODONE HCl Immed Release 5 MG TABLET PO (16:31)
[2025-02-25 16:45] LABS: Alanine Aminotransferase 22 U/L (0-31); Albumin Level 4.3 g/dL (3.5-5.0); Alkaline Phosphatase 84 U/L (39-117); Anion Gap 12 (12-20); Aspartate Amino Transferase 28 U/L (5-31); Blood Urea Nitrogen 34 mg/dL (9-16); Calcium 9.6 mg/dL (8.4-10.2); Carbon Dioxide 32 mmol/L (22-29); Chloride 105 mmol/L (96-108); Creatinine Clr Calc Pharmacy 54.8; Estimated Glomerular Filt Rate > 60; Magnesium 2.3 mg/dL (1.6-2.6); Potassium 5.5 mmol/L (3.3-5.1); Sodium 143 mmol/L (135-145); Total Protein 7.0 g/dL (6.5-8.0)
[2025-02-25 16:50] LABS: B Type Natriuretic Peptide 25 pg/mL (<100)
[2025-02-25 16:52] LABS: Troponin-I High Sensitivity 6.3 ng/L (<3.5-17.0)
[2025-02-25 17:53] VITALS: BP 142/70; PULSE 70; RESP 18; TEMP 36.6; O2SAT 92
== END 2025-02-25 17:53 | disposition home or self-care (01) ==
PROVIDERS: Physician Assistant; Emergency Provider Emergency Medicine; PCP Internal Medicine
DX: I83.009 Varicose veins of unspecified lower extremity with ulcer of unspecified site (principal); L97.919 Non-pressure chronic ulcer of unspecified part of right lower leg with unspecified severity; L97.929 Non-pressure chronic ulcer of unspecified part of left lower leg with unspecified severity; M79.606 Pain in leg, unspecified; R06.02 Shortness of breath
CPT/HCPCS: 36415; 71045; 80048; 80076; 83735; 83880; 84484; 85025; 85652; 86140; 93005; 99283; 99284

== ENCOUNTER → 2025-02-25 15:48 | Outpatient (BNV) | payer OTHER, SELFPAY | PROVIDERS: Emergency Provider Emergency Medicine; PCP Internal Medicine; Visit Provider Radiology Diagnostic Radiology | DX: R06.02 Shortness of breath (principal) | CPT/HCPCS: 71045 ==

== ENCOUNTER → 2025-02-25 15:48 | Outpatient (BNV) | payer OTHER, SELFPAY | PROVIDERS: Emergency Provider Emergency Medicine; PCP Internal Medicine; Visit Provider Internal Medicine Cardiovascular Disease | DX: Z13.6 Encounter for screening for cardiovascular disorders (principal) | CPT/HCPCS: 93010 ==

== ENCOUNTER 2025-03-04 09:29 | Outpatient (REF) | payer OTHER, SELFPAY ==
[2025-03-04 10:07] LABS: MANUAL DIFF FLAG NO
--- OUTSIDE RECORDS SUMMARY | 2025-03-04 10:41 | XMS_ITS | Clinical Summary ---
Author Organization [employer] Address [address] [facility] 7t [place] [address] Care Team Providers Care Plastic Extruding Machine Operator Name Role Phone Unavailable Primary Care [...]
--- OUTSIDE RECORDS SUMMARY | 2025-03-04 10:41 | XMS_ITS | Clinical Summary ---
Author Organization [facility] Address [address] [place] [address] Care Team Providers Care Devops Developer Name Role Phone Tyron Milton Primary Care Provider [phone] Allergies Active Allergy Reactions Criticality Noted Date [...] patient's age to complete this topic Insurance [facility] Care Teams Devops Developer Relationship Specialty Start Date End Date Milton Ackerman [address] [place] [address] dr Iram Walden, [place] [address] PCP - General Internal Medicine 01/20/24
--- OUTSIDE RECORDS SUMMARY | 2025-03-04 10:41 | XMS_ITS | Clinical Summary ---
Author Organization [facility] Address [address] [place] [phone] Phone Care Team Providers Care Anthropology Department Chair Name Role Phone Milton Ackerman MD Primary Care Provider [phone] Medications gabapentin (NEURONTIN) 100 MG capsule Take [...] Medical Devices Not on file Insurance [address] [place] [id number] [employer] MEDICARE PART A & B [facility] MEDICARE REPLACEMENT [facility] MEDICARE PART A & B YAMILE LIN [facility] SNP MEDICARE REPLACEMENT [facility] MEDICARE PART A & B [facility] SNP MEDICARE REPLACEMENT [address] [place] [id number] [place] MEDICARE PART A & B [facility] MEDICARE REPLACEMENT [address] [place] [id number] [facility] & B [facility] MEDICARE REPLACEMENT [facility] MEDICARE PART A & B YAMILE LIN [employer] MEDICARE REPLACEMENT Care Teams Anthropology Department Chair Relationship Specialty Start Date End Date Milton Ackerman MD [address] [place] [address] Dr Ball [place], [place] [phone] PCP - General Internal Medicine 05/23/24 Additional Source Comments The information contained in this document represents components of the legal health record. It is not the complete legal health record.[facility]
--- OUTSIDE RECORDS SUMMARY | 2025-03-04 10:41 | XMS_ITS | Clinical Summary ---
Author Organization [facility] Address [address] [place] [address] Care Team Providers Care Manager Clinical Research Name Role Phone Milton Ackerman MD Primary Care Provider [phone] Medications Medication Sig Dispensed Refills Start Date [...] age to complete this topic Care Teams Manager Clinical Research Relationship Specialty Start Date End Date Milton Ackerman MD [address] [place] [address] [facility] [place], [place] [id number] PCP - General Internal Medicine 02/18/23
[2025-03-04 10:56] LABS: Hematocrit 39.5 % (37.0-47.0); Hemoglobin 12.2 g/dl (12.0-16.0); Imm Gran Abs Auto 0.04 X10*3/uL (0.00-0.03); Imm Gran Pct Auto 0.5 % (0.0-0.4); Lymphocytes Absolute Auto 1.2 X10*3/uL (1.2-4.9); Mean Corpuscular HGB Conc 30.9 g/dl (31.0-35.0); Mean Corpuscular Hemoglobin 27.3 pg (27.0-33.0); Mean Corpuscular Volume 88.4 fL (80.0-98.0); NRBC Abs Auto 0.000 X10*3/uL (0.0-0.012); NRBC Pct Auto 0.0 /100WBC (0.0-0.2); Platelet Count 374 X10*3/uL (160-400); Red Blood Count 4.47 X10*6/uL (4.20-5.50); White Blood Count 7.7 X10*3/uL (4.8-10.8)
[2025-03-04 11:29] LABS: Appearance Urine Clear; Glucose Urine UA Negative (Negative); PH 8.0 (5.0-9.0); Specific Gravity - Urine 1.020 (1.005-1.025)
[2025-03-04 11:42] LABS: Alanine Aminotransferase 17 U/L (0-31); Albumin Level 4.1 g/dL (3.5-5.0); Alkaline Phosphatase 80 U/L (39-117); Anion Gap 14 (12-20); Aspartate Amino Transferase 29 U/L (5-31); Blood Urea Nitrogen 14 mg/dL (9-16); Calcium 9.0 mg/dL (8.4-10.2); Carbon Dioxide 28 mmol/L (22-29); Chloride 105 mmol/L (96-108); Estimated Glomerular Filt Rate > 60; Gamma Glutamyl Transpeptidase 25 U/L (7-33); Potassium 4.3 mmol/L (3.3-5.1); Sodium 143 mmol/L (135-145); Total Protein 6.5 g/dL (6.5-8.0)
== END 2025-03-04 09:30 | disposition home or self-care (01) ==
LOC: HO.LAB 09:29
PROVIDERS: PCP Internal Medicine; Visit Provider Physician Assistant
DX: L30.9 Dermatitis, unspecified (principal)
CPT/HCPCS: 36415; 80053; 81001; 82977; 85025; 85652; 86140

== ENCOUNTER 2025-03-05 09:57 | Outpatient (AMB) | payer OTHER, SELFPAY ==
--- NOTE | 2025-03-05 09:59 | MHC.OFFVIS ---
Vital Signs 03/05/25 09:59 Height 5 ft 6 in Intake Visit Reasons: Last seen 11/03/24 per eCW Realty Specialist Required: Yes Realty Specialist Services: Realty Specialist Offered & Declined (Daughter to translate) Accompanied by: Daughter Allergies Penicillins Allergy (Intermediate, Verified 03/05/25 10:15) Hives oxaprozin (From Daypro) Allergy (Unknown, Verified 03/05/25 10:15) RASH hydroxychloroquine Adverse Reaction (Intermediate, Verified 03/05/25 10:15) Abdominal Pain budesonide (Symbicort) Adverse Reaction (Unknown, Verified 03/05/25 10:15) nausea and vomiting Medication List - Last Reconciled 03/05/25 by Kelsie Barba CNP acetaminophen ER 650 mg PO Q8H PRN 30 days Advair HFA 115-21 mcg/actuation (fluticasone propion-salmeterol) 2 puffs inhalation BID NS albuterol sulfate 2.5 mg (3 mL) continuous nebulization QID PRN alclometasone 0.05% 0.05 appl topical DAILY atorvastatin 80 mg PO BEDTIME 90 days calcium carbonate-vit D3-min 600 mg calcium- 200 unit 1 tab PO DAILY candesartan 32 mg PO DAILY cholecalciferol (vitamin D3) 25 mcg PO DAILY 90 days [disposable bed pads As directed 4 per day ] doxycycline hyclate 100 mg PO BID doxycycline hyclate 100 mg PO BID 7 days fluticasone propionate 110 mcg/actuation (Flovent HFA) 2 puffs inhalation BID 30 days [gloves As directed] inhalational spacing device (Aerochamber MV spacer) As directed lactulose 20 grams (30 mL) PO DAILY PRN lidocaine 5% 1 appl topical TID PRN loratadine 10 mg PO DAILY PRN 90 days lubiprostone (Amitiza) 24 mcg PO BID mineral oil (Fleet Mineral Oil enema) 133 mL MO DAILY PRN mirtazapine 15 mg PO BEDTIME 90 days miscellaneous medical supply Power Lift Chair - As directed - to use indefinatly mupirocin 2% 1 appl topical TID naproxen 500 mg PO DAILY PRN [Nebulizer machine As directed] [Nebulizer machine As directed] oxycodone 15 mg PO BEDTIME PRN 14 days prednisone 20 mg PO DAILY 5 days pregabalin 225 mg PO BID sennosides (senna) 8.6 mg PO DAILY tramadol 50 mg PO BID PRN 30 days walker (Ultra-Light Rollator [facility]) As directed [Walker with seat As directed] zolpidem 10 mg PO BEDTIME PRN 30 days HPI Comments Details: 79-year-old woman with peripheral neuropathy. She started with increasing pain, numbness, and tingling of both feet and legs up to the mid-salamanca level in 2020 with multiple areas of skin sores on both legs. 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 No history of diabetes. She was on gabapentin up to 2000mg/day without relief and started on pregabalin.? She was here with her daughter. She had pain to lower legs all day, every day and has been seen in the ER for leg pain twice in the last 2 months, most recently on 02/25/2025. She was taking pregabalin 225mg twice a day, oxycodone, and tramadol, and was still having pain. Pain was most bothersome in heels. She described pain as a grabbing and pulling sensation. She has multiple lesions/ulcers to lower legs that are painful, and saw wound care in the past. She was following with [facility] who wanted to do biopsy when new wound started and were considering vasculitis. Sleep was up and down, disrupted by pain in legs. No falls recently. She has an appointment with rheumatology at [facility] on 03/22/2025. [facility] Medical History Bilateral primary osteoarthritis of knee Constipation Osteoporosis Allergic rhinitis Insomnia Osteoarthritis Obesity (BMI 30-39.9) Depression Anxiety Vitamin D deficiency GERD without esophagitis Asthma Paroxysmal atrial fibrillation Pure hypercholesterolemia Benign essential hypertension PAF (paroxysmal atrial fibrillation) Surgical History History of colonoscopy Family History Father CVD (cardiovascular disease) Stroke Mother Medical history unknown Brother Bone cancer Sister Cancer of mouth Social History Housing: Apartment Alcohol intake: never Patient Tobacco Use Status: Never used Tobacco e-Cigarette/Vaping Use: Never Used Second Hand Smoke Exposure: Yes service: No Current occupational status: disabled Cognitive needs: No Hearing needs: No Vision needs: Yes (glasses) Review of Systems Const Denies chills, Denies daytime sleepiness, Reports difficulty sleeping, Denies fatigue, Denies fever(s), Denies frequent falls, Denies headache(s), Denies increased appetite, Denies poor appetite, Denies snoring, Denies weakness, Denies weight gain and Denies weight loss Eyes Denies loss of vision ENT Denies vertigo, Denies dizziness, Denies headache(s) and Denies neck pain Card Denies chest pain at rest, Denies chest pain with activity, Denies syncope, Denies leg edema, Denies palpitations, Denies dyspnea and Denies dyspnea on exertion Resp Denies cough, Denies dyspnea, Denies dyspnea on exertion and Denies snoring GI Denies abdominal pain, Denies constipation, Denies heartburn, Denies diarrhea and Denies nausea Denies urinary frequency, Denies urinary incontinence and Denies urinary urgency Musc Denies abnormal gait, Denies back pain, Denies myalgias, Denies arthralgias, Denies neck pain, Reports numbness and Reports tingling Neuro Denies abnormal gait, Denies vertigo, Denies dizziness, Denies syncope, Denies frequent falls, Denies headache(s), Denies lack of coordination, Denies loss of vision, Denies memory loss, Reports numbness, Denies Other visual disturbances, Denies restless legs, Denies seizure-like activity, Reports tingling, Denies paresthesias, Denies tremor(s) and Denies weakness Psych Denies anxiety, Denies depression, Denies auditory hallucinations, Denies memory loss and Denies visual hallucinations Endo Denies fatigue and Denies palpitations Physical Exam Const Other: General Appearance:? normal, in no acute distress. Heart:? S1, S2 normal, no murmurs. Lungs:? clear anteriorly and posteriorly. Musculoskeletal:? normal. Extremities:? multiple chronic, lesions/ulcer-type appearing wounds to bilateral lower legs. +PP. Psych:? alert, oriented, cognitive function intact, cooperative with exam. Neuro Other: Abnormal Neurological Findings:?absent ankle reflexes. Blunting of pin prick in toes and slight decrease in vibration sensation.?? Mental Status: alert and oriented X 3. Normal attention, orientation, memory, and affect. Cranial Nerves: Pupils are equal, round, and reactive to light. External ocular muscles are intact. Visual ricci are full, no ptosis. Face is symmetrical, no facial weakness or droop. Facial sensations are normal. Tongue protrudes in midline. Palate elevates symmetrically. Shoulder shrugging is normal Motor Examination: Normal muscle tone, bulk and strength. No atrophy or fasciculations. No drift of the extended upper extremities. DTR 2+, absent AJs. Plantars are flexor. Sensory Exam: As above, otherwise normal light touch, temperature, pinprick, vibration, and joint-position sensations. Rhomberg sign is absent. Coordination: No ataxia. No titubation. Gait Exam: Within normal limits. Cerebellar Signs: Guhzhv-bl-rizu is okay. Extrapyramidal System: No tremor, rigidity with normal facial expressions. No bradykinesia. No bradyphrenia. Normal arm swing and posture. No propulsion or retropulsion. Speech: Normal. 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 Increase pregabalin 300mg 1 capsule twice a day, use/side effects reviewed. Plan Meds tried: Gabapentin (up to 2000mg/day without relief) As last resort may try amitriptyline 10mg at bedtime and gradually increase dose up to 50mg. Medications: New pregabalin 300 mg PO BID 60 caps 2RF 30 days Discontinued pregabalin Discontinued Reason: Doctor's Order 225 mg PO BID 60 caps 0RF Coding Level of Care Code Est Pt Level 4 (20227) Diagnoses Peripheral polyneuropathy G62.9 Peripheral neuropathy type: polyneuropathy, unspecified
--- OUTSIDE RECORDS SUMMARY | 2025-03-05 10:01 | XMS_ITS | Clinical Summary ---
Author Organization [facility] Address [address] [place] [address] Care Team Providers Care Direct Support Professional Name Role Phone Milton Ackerman MD Primary Care Provider [phone] Medications Medication Sig Dispensed Refills Start Date [...] age to complete this topic Care Teams Direct Support Professional Relationship Specialty Start Date End Date Milton Ackerman MD [address] [place] [address] Dr [facility] [place], [place] [id number] PCP - General Internal Medicine 02/18/23
--- OUTSIDE RECORDS SUMMARY | 2025-03-05 10:01 | XMS_ITS | Clinical Summary ---
Author Organization [facility] Address [address] [place] [address] Phone Care Team Providers Care Nurse First Aid Name Role Phone Milton Ackerman MD Primary Care Provider [phone] Medications gabapentin (NEURONTIN) 100 MG capsule Take [...] Medical Devices Not on file Insurance [address] [place] [id number] [email or web address] MEDICARE PART A & B [facility] MEDICARE REPLACEMENT [facility] MEDICARE PART A & B [place] [facility] SNP MEDICARE REPLACEMENT [facility] MEDICARE PART A & B [facility] SNP MEDICARE REPLACEMENT [address] [place] [id number] [place] MEDICARE PART A & B Member Subscriber Plan / Payer (Ef fective 2013-Present) Name:Saira Alaniz Member ID:[id number] Relation to Subscriber:Self Name:Saira Alaniz Subscriber ID:[id number] Payer ID:[id number] Group ID:Not on file Type:Medicare Address: [facility] [employer] [facility] [address] [place] [phone] [facility] MEDICARE REPLACEMENT [address] [place] [id number] [facility] B [facility] MEDICARE REPLACEMENT [facility] MEDICARE PART A & B [employer] SNP MEDICARE REPLACEMENT Care Teams Nurse First Aid Relationship Specialty Start Date End Date Milton Ackerman MD [address] [place] [address] [address] [place], [place] [id number] PCP - General Internal Medicine 05/23/24 Additional Source Comments The information contained in this document represents components of the legal health record. It is not the complete legal health record.[facility]
--- OUTSIDE RECORDS SUMMARY | 2025-03-05 10:01 | XMS_ITS | Clinical Summary ---
Author Organization [employer] Address [address] [facility] 7[address] [place] [address] Care Team Providers Care Vendor Management Consultant Name Role Phone Unavailable Primary Care Provider [...]
--- OUTSIDE RECORDS SUMMARY | 2025-03-05 10:01 | XMS_ITS | Clinical Summary ---
Author Organization [facility] Address [address] [place] [address] Care Team Providers Care Box Toe Buffer Name Role Phone Tyron Milton Primary Care [...] patient's age to complete this topic Insurance [facility] Care Teams Box Toe Buffer Relationship Specialty Start Date End Date Milton Ackerman [address] [place] [address] dr Iram Walden, [place] [address] PCP - General Internal Medicine 01/20/24
== END 2025-03-05 10:29 | disposition home or self-care (01) ==
LOC: HO.HSM 09:58
PROVIDERS: PCP Internal Medicine; Visit Provider Registered Nurse
DX: G62.9 Polyneuropathy, unspecified (principal)
CPT/HCPCS: 99214

== ENCOUNTER → 2025-03-05 09:57 | Outpatient (BNVA) | payer OTHER, SELFPAY | PROVIDERS: PCP Internal Medicine; Visit Provider Registered Nurse | DX: G62.9 Polyneuropathy, unspecified (principal); R20.0 Anesthesia of skin; R20.2 Paresthesia of skin; M79.605 Pain in left leg; M79.604 Pain in right leg | CPT/HCPCS: 99212 ==

== ENCOUNTER 2025-04-05 09:44 | Outpatient (AMB) | payer OTHER, SELFPAY ==
--- NOTE | 2025-04-05 09:58 | A.OFFVIS_ITS ---
Vital Signs 04/05/25 09:59 Height 5 ft 6 in Weight 183 lb 13.848 oz BMI 29.7 BP 128/62 Blood Pressure Location Lt brachial Position Sitting Pulse 65 Pulse Source Monitor Intake Visit Reasons: rn medical inpatient services/dr. stern/leg ulcerations Intake Note: rn medical inpatient services / Dr Michael Mckeon / Leg Ulcer . Assistant Plant Controller Required: No Assistant Plant Controller Services: Assistant Plant Controller Offered & Declined Accompanied by: Daughter Allergies Penicillins Allergy (Intermediate, Verified 04/05/25 10:05) Hives oxaprozin (From Daypro) Allergy (Unknown, Verified 04/05/25 10:05) RASH hydroxychloroquine Adverse Reaction (Intermediate, Verified 04/05/25 10:05) Abdominal Pain budesonide (Symbicort) Adverse Reaction (Unknown, Verified 04/05/25 10:05) nausea and vomiting HPI Comments Details: Saira was referred here for evaluation of recurrent leg ulcers. Patient is a 79 year female with prior history of hypertension, peripheral neuropathy, MGUS, depression, question atrial fibrillation. Discussed with the daughter about diagnose of atrial fibrillation she is not very sure. She says she has to get elevated/irregular heartbeats when she has to get a lot of attacks or her asthma. She said she had a old carpet and that is to give in triggered her asthma episodes. However since then she has not had any recurrent episodes. I reviewed all EKGs in his chart here and there was no episodes of atrial fibrillation here. So not sure with the diagnose of atrial fibrillation. However for 4 years or so she has been getting recurrent ulcers on her legs and she has been evaluated by multiple different services including vascular, dermatology as well as Rheumatology. Patient's daughter does say that she does have rheumatoid arthritis. The also start says painful black lesion followed by ulceration. These then resolve on their own. Patient has not had a biopsy on this but has a new lesion coming up on her right medial malleoli and daughter was going to call the marine consultant for possible biopsy today. She has no claudication symptoms. She has no heart symptoms. Denies any exertional chest pain or shortness of breath. No orthopnea, PND, leg edema. She had an echocardiogram in November which was within normal limits. She denies any lightheadedness, syncope. No prolonged palpitation irregular heartbeat. [facility] Medical History Bilateral primary osteoarthritis of knee Constipation Osteoporosis Allergic rhinitis Insomnia Osteoarthritis Obesity (BMI 30-39.9) Depression Anxiety Vitamin D deficiency GERD without esophagitis Asthma Paroxysmal atrial fibrillation Pure hypercholesterolemia Benign essential hypertension PAF (paroxysmal atrial fibrillation) Surgical History History of colonoscopy Family History Father CVD (cardiovascular disease) Stroke Mother Medical history unknown Brother Bone cancer Sister Cancer of mouth Social History Housing: Apartment Alcohol intake: never Patient Tobacco Use Status: Never used Tobacco e-Cigarette/Vaping Use: Never Used Second Hand Smoke Exposure: Yes service: No Current occupational status: disabled Cognitive needs: No Hearing needs: No Vision needs: Yes (glasses) Review of Systems Const Reports body aches, Denies daytime sleepiness, Denies difficulty sleeping, Denies snoring, Denies stops breathing during sleep and Denies weakness Card Denies chest pain, Denies rapid heart rate, Denies irregular heart rhythm, Denies claudication, Denies leg edema, Denies lightheadedness, Denies palpitations, Denies dyspnea, Denies dyspnea on exertion, Denies orthopnea, Denies paroxysmal nocturnal dyspnea and Denies slow heart rate Resp Denies cough, Denies dyspnea, Denies dyspnea on exertion and Denies snoring GI Reports no additional complaints, Denies hematochezia, Denies change in stool character and Denies dyspepsia Musc Denies abnormal gait, Denies muscle weakness and Denies numbness Neuro Denies abnormal gait, Denies numbness and Denies weakness Endo Denies palpitations Physical Exam Vital Signs: Last Vital Signs Pulse 65 04/05/25 09:59 BP 128/62 04/05/25 09:59 BMI result Body Mass Index 29.7 Const General: cooperative, comfortable, no acute distress, alert and awake Nutritional Appearance: overweight Orientation/consciousness: patient oriented x3 Limitations: no limitations HEENT Head: Yes normocephalic and Yes atraumatic Neck Neck: Yes trachea midline, Yes supple and Yes no JVD Resp Effort & Inspection: normal respiratory effort Auscultation: clear to auscultation bilaterally Cardio Jugular venous distension: no JVD Palpation: normal PMI Rate: regular rate Rhythm: regular rhythm Heart sounds: S1 normal heart sound present, S2 normal heart sound present, no click, no gallops, no murmurs and no rubs Peripheral pulses: Peripheral pulses 2+ throughout GI Auscultation: normal bowel sounds Skin General skin exam: other (Small black lesion noted on the right medial malleolus, mildly tender to to) Neuro General: patient oriented x3 and no focal motor deficits Extrem General: Yes no clubbing, cyanosis or edema Psych Appearance: grossly normal Office Procedures EKG Details: EKGs shows normal sinus rhythm with normal EKG 19039-[id number], Complete Assessment & Plan Assessment & Plan (1) Ulcers of both lower extremities: Code(s): L97.919 - Non-pressure chronic ulcer of unspecified part of right lower leg with unspecified severity; L97.929 - Non-pressure chronic ulcer of unspecified part of left lower leg with unspecified severity Category: Medical Qualifiers: Non-pressure ulcer stage: unspecified non-pressure ulcer stage Qualified Code(s): L97.919 - Non-pressure chronic ulcer of unspecified part of right lower leg with unspecified severity; L97.929 - Non-pressure chronic ulcer of unspecified part of left lower leg with unspecified severity Plan: Patient with recurrent ulcers on her lower extremity, cutaneous ulcers with initial onset with pain and necrotic locally lesions. This is highly suggestive of possible vasculitis. This needs to be worked up. Strongly recommend daughter to call if dermatology office as she is having 1 of those lesions today that can be biopsied. She has good peripheral circulation unlikely that this represent related to arterial disease and/or venous disease. No further workup is indicated from cardiac perspective. (2) Benign essential hypertension: Code(s): I10 - Essential (primary) hypertension Category: Medical Plan: Hypertension which is currently well optimized advised to monitor blood pressure at home maintain a log. Continue current therapy. Importance of good blood pressure control was discussed. Low-salt diet was discussed. Stress mitigation strategies were discussed. There is a potential history of atrial fibrillation which is unclear. I would like to see any possible EKGs evidence of the same. At this point time I would continue aggressive blood pressure control. Would suggest a 30 day event monitor to assess for any asymptomatic episodes of atrial fibrillation that may change therapy including initiation of oral anticoagulation therapy avoidance of stimulants was discussed. Will follow up in the clinic if need be. Thank you for allowing me to partake in her care Orders: Orders ECG 30 day event monitor Today I10 - Essential (primary) hypertension Coding Level of Care Code New Pt Level 4 (12646) Diagnoses Ulcers of both lower extremities, unspecified ulcer stage L97.919; L97.929 Non-pressure ulcer stage: unspecified non-pressure ulcer stage Benign essential hypertension I10 CPT Codes EKG - CPT: 11731-Yaqdiwrrvkyqfgqel, Complete ([id number])
[2025-04-05 09:59] VITALS: BP 128/62; PULSE 65; BMI 29.7
--- OUTSIDE RECORDS SUMMARY | 2025-04-05 11:36 | XMS_ITS | Clinical Summary ---
Author Organization [employer] Address [address] [facility] 7[address] [place] [address] Care Team Providers Care Living Nurse Name Role Phone Unavailable Primary Care Provider [...] COVID-19 Vaccine (1 - 2023-2 5 season) 2025 Influenza Vaccine (#1) 2025 HIB Vaccines Aged [...]
--- OUTSIDE RECORDS SUMMARY | 2025-04-05 11:36 | XMS_ITS | Clinical Summary ---
Author Organization [facility] Address [address] [place] [address] Care Team Providers Care Hand Assembler Name Role Phone Milton Ackerman MD Primary Care Provider [phone] Medications Medication Sig Dispensed Refills Start Date [...] age to complete this topic Care Teams Hand Assembler Relationship Specialty Start Date End Date Milton Ackerman MD [address] [place] [address] [address] [facility] [place], [place] [id number] PCP - General Internal Medicine 02/18/23
--- OUTSIDE RECORDS SUMMARY | 2025-04-05 11:36 | XMS_ITS | Clinical Summary ---
Author Organization [facility] Address [address] [place] [address] Care Team Providers Care Dobie Man Name Role Phone Tyron Milton Primary Care Provider [phone] Allergies Active Allergy Reactions Criticality Noted Date [...] patients) (1 - 1-dose 75+ series) 2020 Alcohol/Substance Use Screening 07/15/2024 Depression Screening and Follow-Up 07/15/2024 Health Care Proxy Review 07/15/2024 Social Drivers of Health Annual Screening 07/15/2024 COVID-19 Vaccine (4 - 2024-2 6 season) 2025 07/06/2021, 09/22/2020, 08/31/2020 Influenza Vaccine (#1) 2025 , 03/31/2019 Hepatitis B Vaccines Aged Out No long er eligible based on patient's age to complete this topic Insurance [facility] Care Teams Dobie Man Relationship Specialty Start Date End Date Milton Ackerman [address] [place] [address] dr Iram Walden, [place] [address] PCP - General Internal Medicine 01/20/24
--- OUTSIDE RECORDS SUMMARY | 2025-04-05 11:36 | XMS_ITS | Clinical Summary ---
Author Organization [facility] Address [address] [place] [id number] Phone Care Team Providers Care Terrazzo Worker Helper Name Role Phone Milton Ackerman MD Primary Care Provider [phone] Medications gabapentin (NEURONTIN) 100 MG capsule Take [...] VACCINE (1 - 1-dose 75+ series) 2020 INFLUENZA VACCINE (#1) 2025 COVID-19 VACCINE (1 - 2023-2 5 season) 2025 HEPATITIS A VACCINES Aged Out No long [...] Medical Devices Not on file Insurance [address] [place] [id number] [facility] MEDICARE PART A & B [facility] MEDICARE REPLACEMENT [facility] MEDICARE PART A & B [facility] MEDICARE REPLACEMENT [facility] MEDICARE PART A & B [facility] MEDICARE REPLACEMENT [address] [place] [id number] [facility] MEDIC[facility] PART A & B [facility] MEDICARE REPLACEMENT [address] [place] [address] [place] MED[place] PART A & [place] [id number] [facility] MEDICARE REPLACEMENT [facility] MEDICARE PART A & B [facility] MEDICARE REPLACEMENT Care Teams Terrazzo Worker Helper Relationship Specialty Start Date End Date Milton Ackerman MD [address] [place] [address] Dr Cortes, [place] [address] PCP - General Internal Medicine 05/23/24 Additional Source Comments The information contained in this document represents components of the legal health record. It is not the complete legal health record.[facility]
== END 2025-04-05 10:36 | disposition home or self-care (01) ==
PROVIDERS: PCP Internal Medicine; Visit Provider Internal Medicine Cardiovascular Disease
DX: L97.919 Non-pressure chronic ulcer of unspecified part of right lower leg with unspecified severity (principal); L97.929 Non-pressure chronic ulcer of unspecified part of left lower leg with unspecified severity; I10 Essential (primary) hypertension
CPT/HCPCS: 93010; 99214

== ENCOUNTER → 2025-04-05 09:44 | Outpatient (BNVA) | payer OTHER, SELFPAY | PROVIDERS: PCP Internal Medicine; Visit Provider Internal Medicine Cardiovascular Disease | DX: L97.919 Non-pressure chronic ulcer of unspecified part of right lower leg with unspecified severity (principal); L97.929 Non-pressure chronic ulcer of unspecified part of left lower leg with unspecified severity; I10 Essential (primary) hypertension | CPT/HCPCS: 93005; 99212 ==

== ENCOUNTER 2025-05-04 10:51 | Outpatient (AMB) | payer OTHER, SELFPAY ==
--- NOTE | 2025-05-04 11:03 | A.OFFPC_ITS ---
Vital Signs 05/04/25 11:04 Height 5 ft 6 in Weight 178 lb BMI 28.7 BP 124/68 Blood Pressure Location Lt brachial Position Sitting Respiration 18 Pulse 82 Pulse Source Pulse Oximeter Temp 97.3 F Temp Source Temporal Artery Scan Pulse Oximetry (%) 94 Oxygen Delivery Method Room Air Intake Visit Reasons: 3 months Paper Products Printer Required: No Accompanied by: Self / Same As Patient Allergies Penicillins Allergy (Intermediate, Verified 05/04/25 11:42) Hives oxaprozin (From Daypro) Allergy (Unknown, Verified 05/04/25 11:42) RASH hydroxychloroquine Adverse Reaction (Intermediate, Verified 05/04/25 11:42) Abdominal Pain budesonide (Symbicort) Adverse Reaction (Unknown, Verified 05/04/25 11:42) nausea and vomiting Medication List - Last Reconciled 05/04/25 by Milton Ackerman MD acetaminophen ER 650 mg PO Q8H PRN 30 days Advair HFA 115-21 mcg/actuation (fluticasone propion-salmeterol) 2 puffs inhalation BID NS albuterol sulfate 2.5 mg (3 mL) continuous nebulization QID PRN alclometasone 0.05% 0.05 appl topical DAILY amitriptyline 10 mg orally 1 tablet at bedtime x1 week then 2 tablets at bedtime; 30 days atorvastatin 80 mg PO BEDTIME 90 days calcium carbonate-vit D3-min 600 mg calcium- 200 unit 1 tab PO DAILY candesartan 32 mg PO DAILY cholecalciferol (vitamin D3) 25 mcg PO DAILY 90 days [disposable bed pads As directed 4 per day ] fluticasone propionate 110 mcg/actuation (Flovent HFA) 2 puffs inhalation BID 30 days [gloves As directed] inhalational spacing device (Aerochamber MV spacer) As directed lactulose 20 grams (30 mL) PO DAILY PRN lidocaine 5% 1 appl topical TID PRN loratadine 10 mg PO DAILY PRN 90 days lubiprostone (Amitiza) 24 mcg PO BID mineral oil (Fleet Mineral Oil enema) 133 mL [place] DAILY PRN mirtazapine 15 mg PO BEDTIME 90 days miscellaneous medical supply Power Lift Chair - As directed - to use indefinatly mupirocin 2% 1 appl topical TID [Nebulizer machine As directed] [Nebulizer machine As directed] oxycodone 15 mg PO BEDTIME PRN 14 days sennosides (senna) 8.6 mg PO DAILY tramadol 50 mg PO BID PRN 30 days walker (Ultra-Light Rollator misc) As directed [Walker with seat As directed] zolpidem 10 mg PO BEDTIME PRN 30 days Tobacco use date assessed: 05/04/25 Fall risk assessment: No Falls in past year Last assessed Fall Risk: 05/04/25 Dental Screening Dental Screen Date: 05/04/25 Did you have a dental visit in the last 12 months?: No Did you have a dental problem in the last 6 months where you did not have access to dental care?: No Was dental information given to patient?: No HPI 3 months HPI Details Patient comes in today for her follow up visit States that she continues to break out repeatedly in painful lesions/ulcers on her lower extremities and needs her Oxycodone Rx refilled today She continues to feel frustrated at not being able to have the answers as to the cause of these despite referrals to numerous specialties including neurology, rheumatology, dermatology and vascular surgery as all work ups done were ne gative or unrevealing States that she feels okay otherwise She denies any headaches or dizziness Denies any chest pains, no increased SOB No nausea/vomiting, no abdominal pain No change in bowel habits noted She was not able to get her follow up labs done prior to her appointment today [facility] Medical History (Updated 05/11/25 @ 10:06 by Milton Ackerman MD) Overweight (BMI 25.0-29.9) Bilateral primary osteoarthritis of knee Constipation Osteoporosis Allergic rhinitis Insomnia Osteoarthritis Obesity (BMI 30-39.9) Depression Anxiety Vitamin D deficiency GERD without esophagitis Asthma Paroxysmal atrial fibrillation Pure hypercholesterolemia Benign essential hypertension PAF (paroxysmal atrial fibrillation) Surgical History History of colonoscopy Family History Father CVD (cardiovascular disease) Stroke Mother Medical history unknown Brother Bone cancer Sister Cancer of mouth Social History Housing: Apartment Alcohol intake: never Patient Tobacco Use Status: Never used Tobacco e-Cigarette/Vaping Use: Never Used Second Hand Smoke Exposure: Yes service: No Current occupational status: disabled Cognitive needs: No Hearing needs: No Vision needs: Yes (glasses) Questionnaire Thrive Questionnaire Date Thrive assessed: 01/21/25 I am a: Patient What is your living situation today?: I have a steady place to live Within the past 12 months, did the food you bought not last and you didn't have the money to get more?: Never true Within the past 12 months, did you worry whether your food would run out before you got money to buy more?: Never true Do you have trouble paying for medicines?: No Do you have trouble getting transportation to medical appointments?: No Do you have trouble paying your heating and electricity bill?: No Do you have trouble taking care of your child, family member or friend?: No Do you have trouble with day-to-day activities such as bathing, preparing meals, shopping, managing finances, etc.?: Yes Are you currently unemployed and looking for a job?: No Are you interested in more education?: No Please select the resources that you would like help with: None Currently or been in a relationship where the following occur: No concerns reported THRIVE Score: 0 FARIDEH-7 AMB Questionnaire FARIDEH-7 Date FARIDEH - 7 assessed: 02/03/25 Source: Developed by Drs. Abisai Peñaloza, Celina Simeon, Ayad Briceno and colleagues, with an educational elif from [employer]. Review of Systems Const Denies chills, Reports fatigue, Denies fever(s) and Denies headache(s) ENT Denies dysphagia, Denies dizziness, Denies otalgia, Denies headache(s), Denies neck pain, Denies odynophagia and Denies sore throat Card Denies chest pain, Denies palpitations and Denies dyspnea Resp Denies chest congestion, Denies cough and Denies dyspnea GI Denies abdominal pain, Reports constipation (at times), Denies dysphagia, Denies heartburn, Denies diarrhea, Denies nausea, Denies odynophagia and Denies vomiting Denies difficulty voiding, Denies nocturia, Denies dysuria and Reports urinary incontinence (mostly urge incontinence, especially at night) Musc Denies back pain, Reports arthralgias (involving multiple joints, especially in both knees) and Denies neck pain Skin/Breast Denies rash and Reports skin ulcer (recurrent multiple painful sores/ulcers on both distal lower legs & ankles) Neuro Denies dizziness and Denies headache(s) Endo Reports fatigue and Denies palpitations Physical exam (Primary Care) Vital Signs: Last Vital Signs Temp 97.3 F 05/04/25 11:04 Pulse 82 05/04/25 11:04 Resp 18 05/04/25 11:04 BP 124/68 05/04/25 11:04 Pulse Ox 94 05/04/25 11:04 Oxygen Delivery Method Room Air 05/04/25 11:04 BMI result Body Mass Index 28.7 Tobacco/Smoking Status: Tobacco use Status Tobacco use date assessed 05/04/25 05/04/25 11:11 Patient Tobacco Use Status Never used Tobacco 05/04/25 11:11 e-Cigarette/Vaping Use Never Used 05/04/25 11:11 Thrive Assessment: Date of Thrive Assessment Date Thrive assessed 01/21/25 05/04/25 11:11 Currently or been in a relationship where the following occur: No concerns reported Const General: no acute distress and alert HENMT Throat: Yes posterior oropharynx normal and Yes tonsils normal Neck Neck: Yes supple and No lymphadenopathy Thyroid: Thyroid normal Resp Auscultation: clear to auscultation bilaterally, no rales and no wheezes Cardio Rate: regular rate Rhythm: regular rhythm Heart sounds: no murmurs GI Palpation (GI): Soft to palpation and nontender Auscultation: normal bowel sounds General: Yes no CVA tenderness Back/Spine/Pelvis Back: no CVA tenderness Thoracic/Lumbar Spine: No lumbar spinal tenderness Skin Other: (+) multiple, tender, non-draining ulcers/sores over both lower legs and around both ankles, with scattered patchy discoloration noted over both lower legs as well Rashes: no rashes Extrem General: Yes no clubbing, cyanosis or edema Coding Level of Care Code Est Pt Level 4 (76308) Diagnoses Ulcers of both lower extremities, unspecified ulcer stage L97.919; L97.929 Non-pressure ulcer stage: unspecified non-pressure ulcer stage Benign essential hypertension I10 Paroxysmal atrial fibrillation I48.0 Moderate persistent asthma without complication J45.40 Asthma complication type: uncomplicated Asthma persistence: persistent Asthma severity: moderate Seasonal allergic rhinitis due to pollen J30.1 Allergic rhinitis seasonality: seasonal Allergic rhinitis trigger: pollen GERD without esophagitis K21.9 Osteoporosis without current pathological fracture, unspecified osteoporosis type M81.0 Osteoporosis type: unspecified Presence of current pathological fracture: without current pathological fracture Primary osteoarthritis involving multiple joints M89.49 Insomnia, unspecified type G47.00 Insomnia type: unspecified Anxiety F41.9 Episode of recurrent major depressive disorder, unspecified depression episode severity F33.9 Active/Remission status: currently active Depression Type: major depressive disorder Major depression episode severity: unspecified Major depression recurrence: recurrent Overweight (BMI 25.0-29.9) E66.3 Assessment & Plan Assessment & Plan (1) Ulcers of both lower extremities: Code(s): L97.919 - Non-pressure chronic ulcer of unspecified part of right lower leg with unspecified severity; L97.929 - Non-pressure chronic ulcer of unspecified part of left lower leg with unspecified severity Category: Medical Qualifiers: Non-pressure ulcer stage: unspecified non-pressure ulcer stage Qualifie d Code(s): L97.919 - Non-pressure chronic ulcer of unspecified part of right lower leg with unspecified severity; L97.929 - Non-pressure chronic ulcer of unspecified part of left lower leg with unspecified severity Plan: Patient has been breaking out in recurrent painful ulcers on both of her lower extremities for the past 2 to 3 years She has been seen and evaluated by dermatology, vascular surgery, neurology and rheumatology extensively for these over the past couple of years and they have ruled out dermatologic, neuropathic, vascular and rheumatologic etiologies for her recurrent ulcers - tests have all come back unrevealing so far She was trialed unsuccessfully with Gabapentin up to 800 mg TID by neurology and was switched over to Pregabalin, which is currently at 225 mg BID but patient reports that this is still not helping much and she is now reporting that she is experiencing increased tremors on the high dose of Pregabalin Per her request, we tried referring her to rheumatology in [place] ([facility]) for further evaluation/second opinion a few months ago but this was not approved by her health insurance We will now try referring her to podiatry for further recommendations and management Continue Oxycodone 15 mg Q HS PRN only for severe pain - Rx refilled (2) Benign essential hypertension: Code(s): I10 - Essential (primary) hypertension Category: Medical Plan: Reinforced low-sodium diet - goal is systolic BP of at least 140 mm or less Continue Candesartan 32 mg QD; HCTZ was previously discontinued (3) Paroxysmal atrial fibrillation: Code(s): I48.0 - Paroxysmal atrial fibrillation Category: Medical Plan: Patient currently remains in sinus rhythm and is asymptomatic from a cardiac standpoint Echocardiogram done in November 2024 came out normal She was also referred to cardiology again for evaluation for any possible cardiac etiology for her recurrent painful lower extremity ulcers and was seen last month She was recommended to continue following up with dermatology and to seek possibility of having her recurrent lower extremity lesions biopsied again as their presentation are highly suggestive of a vasculitic lesion She was also recommended to have a 30 days engine monitor done to completely as sess her (?) issue of AF in the past and she will be getting this set up early next month (4) Asthma: Code(s): J45.909 - Unspecified asthma, uncomplicated Category: Medical Qualifiers: Asthma complication type: uncomplicated Asthma persistence: persistent Asthma severity: moderate Qualified Code(s): J45.40 - Moderate persistent asthma, uncomplicated Plan: Controlled - continue Advair HFA 115-21 mcg 2 inhalations BID and Albuterol HFA 1 to 2 inhalations Q 6 hours PRN States that she uses her nebulizer only when needed (5) Allergic rhinitis: Code(s): J30.9 - Allergic rhinitis, unspecified Category: Medical Qualifiers: Allergic rhinitis seasonality: seasonal Allergic rhinitis trigger: pollen Qualified Code(s): J30.1 - Allergic rhinitis due to pollen Plan: Continue Loratadine 10 mg QD PRN (6) GERD without esophagitis: Code(s): K21.9 - Gastro-esophageal reflux disease without esophagitis Category: Medical Plan: Dietary restrictions reinforced Continue Omeprazole 40 mg QD PRN (7) Osteoporosis: Comment: DEXA 04/2024: AP Spine -1.4, Left femur neck -3.2, Left femur total -3.1 Code(s): M81.0 - Age-related osteoporosis without current pathological fracture Category: Medical Qualifiers: Osteoporosis type: unspecified Presence of current pathological fracture: without current pathological fracture Qualified Code(s): M81.0 - Age- related osteoporosis without current pathological fracture Plan: Repeat BMD done in July 2022 revealed that patient's BMD has declined significantly from her previous scan in July 2017, especially in the left femur, which declined by 23.2% from previous Her A/P spine BMD is mostly unchanged and her lowest T-score is now at -3.2 in the femoral neck S/P Tx with Alendronate - Rx has been discontinued recently Patient has been on Alendronate 70 mg Q week for years (unclear when she actually started taking it but most likely > 5 years) and we have instructed patient earlier this year to just finish up her current supply of Alendronate, then D/C the Rx We will also consider having her see endocrinology for her osteoporosis once her current issues with her lower extremity ulcers are under better control (8) Primary osteoarthritis involving multiple joints: Code(s): M89.49 - Other hypertrophic osteoarthropathy, multiple sites Category: Medical Plan: Mostly involving her right knee - she has received cortisone injection from orthopedics in the past without any significant relief Have advised her again that physical therapy can help with her knee pain if her symptoms get worse -? patient does not want to pursue this for now, especially with her ongoing recurrent painful ulcers Continue Tramadol 50 mg TID PRN; her Pregabalin 225 mg BID will be discontinued due to complaints of increased tremors while she is on them Follow-up with Orthopedics as scheduled or as needed (9) Insomnia: Code(s): G47.00 - Insomnia, unspecified Category: Medical Qualifiers: Insomnia type: unspecified Qualified Code(s): G47.00 - Insomnia, unspecified Plan: Sleep hygiene reinforced Continue Zolpidem 10 mg Q HS PRN (10) Anxiety: Code(s): F41.9 - Anxiety disorder, unspecified Category: Medical Plan: Continue Lorazepam 0.5 mg 2 to 3 times a day as needed Mirtazapine also appears to be helping (11) Depression: Code(s): F32.9 - Major depressive disorder, single episode, unspecified Category: Medical Qualifiers: Active/Remission status: currently active Depression Type: major depressive disorder Major depression episode severity: unspecified Major depression recurrence: recurrent Qualified Code(s): F33.9 - Major depressive disorder, recurrent, unspecified Plan: Continue Mirtazapine 15 mg Q HS (12) Overweight (BMI 25.0-29.9): Code(s): E66.3 - Overweight Category: Medical Plan: Reinforced diet; exercise and weight loss are unrealistic given patient's current ongoing issues and multiple tea Plan Follow up in 3 months Orders: Referrals Podiatry Referral G89.29 - Other chronic pain, M25.571 - Pain in right ankle and joints of right foot, M25.572 - Pain in left ankle and joints of left foot, M79.671 - Pain in right foot, M79.672 - Pain in left foot Medications: Refilled oxycodone Partial Fill upon patient request. 15 mg PO BEDTIME PRN 14 tabs 0RF severe pain 14 days
[2025-05-04 11:04] VITALS: BP 124/68; PULSE 82; RESP 18; TEMP 36.3; O2SAT 94; BMI 28.7
--- OUTSIDE RECORDS SUMMARY | 2025-05-04 13:17 | XMS_ITS | Clinical Summary ---
Author Organization [facility] Address [address] [place] [address] Care Team Providers Care Sail Cutter Name Role Phone Milton Ackerman MD Primary Care Provider [phone] Medications Medication Sig Dispensed Refills Start Date [...] age to complete this topic Care Teams Sail Cutter Relationship Specialty Start Date End Date Milton Ackerman MD [address] [place] [address] [address] [facility] [place], [place] [id number] PCP - General Internal Medicine 02/18/23
--- OUTSIDE RECORDS SUMMARY | 2025-05-04 13:17 | XMS_ITS | Clinical Summary ---
Author Organization [facility] Address [address] [place] [address] Care Team Providers Care Slab Depiler Operator Name Role Phone Tyron Milton Primary Care Provider [phone] Allergies Active Allergy Reactions Criticality Noted Date [...] patient's age to complete this topic Insurance [facility] Care Teams Slab Depiler Operator Relationship Specialty Start Date End Date Milton Ackerman [address] [place] [address] dr Iram Walden, [place] [address] PCP - General Internal Medicine 01/20/24
--- OUTSIDE RECORDS SUMMARY | 2025-05-04 13:17 | XMS_ITS | Clinical Summary ---
Author Organization [employer] Address [address] [facility] [address] [place] [address] Care Team Providers Care Legal Associate Name Role Phone Unavailable Primary Care Provider [...]
== END 2025-05-04 13:34 | disposition home or self-care (01) ==
LOC: HO.HMCH 10:52
PROVIDERS: PCP Internal Medicine; Visit Provider Internal Medicine
DX: L97.919 Non-pressure chronic ulcer of unspecified part of right lower leg with unspecified severity (principal); L97.929 Non-pressure chronic ulcer of unspecified part of left lower leg with unspecified severity; I10 Essential (primary) hypertension; I48.0 Paroxysmal atrial fibrillation; J45.40 Moderate persistent asthma, uncomplicated; J30.1 Allergic rhinitis due to pollen; K21.9 Gastro-esophageal reflux disease without esophagitis; M81.0 Age-related osteoporosis without current pathological fracture; M89.49 Other hypertrophic osteoarthropathy, multiple sites; G47.00 Insomnia, unspecified; F41.9 Anxiety disorder, unspecified; F33.9 Major depressive disorder, recurrent, unspecified; E66.3 Overweight

== ENCOUNTER → 2025-05-04 10:51 | Outpatient (BNVA) | payer OTHER, SELFPAY | PROVIDERS: PCP Internal Medicine; Visit Provider Internal Medicine | DX: I10 Essential (primary) hypertension (principal); L97.919 Non-pressure chronic ulcer of unspecified part of right lower leg with unspecified severity; L97.929 Non-pressure chronic ulcer of unspecified part of left lower leg with unspecified severity; I48.0 Paroxysmal atrial fibrillation; J45.40 Moderate persistent asthma, uncomplicated; J30.1 Allergic rhinitis due to pollen; K21.9 Gastro-esophageal reflux disease without esophagitis; M81.0 Age-related osteoporosis without current pathological fracture; M89.49 Other hypertrophic osteoarthropathy, multiple sites; G47.00 Insomnia, unspecified; F41.9 Anxiety disorder, unspecified; F33.9 Major depressive disorder, recurrent, unspecified; E66.3 Overweight; G89.29 Other chronic pain; M25.571 Pain in right ankle and joints of right foot; M25.572 Pain in left ankle and joints of left foot; M79.671 Pain in right foot; M79.672 Pain in left foot; Z68.28 Body mass index [BMI] 28.0-28.9, adult | CPT/HCPCS: 99212 ==

== ENCOUNTER 2025-05-20 10:39 | Outpatient (REF) | payer OTHER, SELFPAY | END 2025-05-20 10:40 | disposition home or self-care (01) | LOC: HO.LNP 10:39 | PROVIDERS: PCP Internal Medicine; Visit Provider Student in an Organized Health Care Education/Training Program | DX: I83.11 Varicose veins of right lower extremity with inflammation (principal); L97.322 Non-pressure chronic ulcer of left ankle with fat layer exposed; I73.9 Peripheral vascular disease, unspecified | CPT/HCPCS: 87070; 87205; 97597; 99202 ==

== ENCOUNTER 2025-05-20 10:39 | Outpatient (AMB) | payer OTHER, SELFPAY ==
[2025-05-20 10:55] VITALS: BMI 34.8
--- NOTE | 2025-05-20 10:55 | MHC.OFFVIS ---
Vital Signs 05/20/25 10:55 Height 5 ft 1 in Weight 184 lb BMI 34.8 Intake Visit Reasons: bilateral foot pain Intake Note: Saira is a 79 year old female who presents today as a new patient for an evaluation of her bilateral foot pain. Pain is located primarily in the back of the heels and she finds that the left foot pain is worst compared to her right. Patient has tried stretching exercises and found no relief however compression stocking has helped her slightly. She was seen by wound care in the past however she is not established with them no longer. She currently has a wound on the back of her heels Allergies Penicillins Allergy (Intermediate, Verified 05/20/25 10:56) Hives oxaprozin (From Daypro) Allergy (Unknown, Verified 05/20/25 10:56) RASH hydroxychloroquine Adverse Reaction (Intermediate, Verified 05/20/25 10:56) Abdominal Pain budesonide (Symbicort) Adverse Reaction (Unknown, Verified 05/20/25 10:56) nausea and vomiting HPI Comments Details: The patient is a 79-year-old female with a past medical history as seen below presenting with chronic non-healing lower extremity ulcers. Patient was accompanied by her daughter who provided Icelandic interpretation and assisted in providing a history. 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 Patient also has a history of peripheral vascular disease and has seen various vascular specialist. Patient's daughter states her mother has undergone various vascular procedures but is unsure of exactly the name of the procedures. The ulcers have been present for approximately four years, characterized by periods of healing and recurrence. The patient has experienced persistent pain associated with these ulcers, which are primarily located on the heels. The patient has not consistently used compression stockings, which have been noted to alleviate symptoms when worn. Patient states she does her own dressing changes sometimes. She denies any recent pedal injuries. And patient states she has recently noticed an ulcer to the posterior aspect of the left leg. She denies any purulence, drainage or bleeding, but states she notices stains to the Band-Aid. [facility] Medical History (Updated 05/20/25 @ 11:33 by Summer Mccullough DPM) Leg ulcer, left Peripheral vascular disease Overweight (BMI 25.0-29.9) Bilateral primary osteoarthritis of knee Constipation Osteoporosis Allergic rhinitis Insomnia Osteoarthritis Obesity (BMI 30-39.9) Depression Anxiety Vitamin D deficiency GERD without esophagitis Asthma Paroxysmal atrial fibrillation Pure hypercholesterolemia Benign essential hypertension PAF (paroxysmal atrial fibrillation) Surgical History History of colonoscopy Family History Father CVD (cardiovascular disease) Stroke Mother Medical history unknown Brother Bone cancer Sister Cancer of mouth Social History Housing: Apartment Alcohol intake: never Patient Tobacco Use Status: Never used Tobacco e-Cigarette/Vaping Use: Never Used Second Hand Smoke Exposure: Yes service: No Current occupational status: disabled Cognitive needs: No Hearing needs: No Vision needs: Yes (glasses) Review of Systems Const Details: - Integumentary: Reports chronic foot ulcers with intermittent healing and associated pain. - Vascular: Reports pain consistent and vascular insufficiency. All systems reviewed & are unremarkable except as noted in HPI and below Physical Exam Vital Signs: BMI result Body Mass Index 34.8 Extrem Other: Bilateral lower extremity focused physical exam: Derm: Left - ulcer noted to the posterior aspect of the leg at the area of the posterior ankle limited to subcutaneous tissue with fibrogranular wound bed noted measuring approximately 1.3x 0.8 x 0.1 cm . No probing to bone. No undermining or tunneling noted. No maceration periwound area noted. No active bleeding drainage or purulence noted. Diffuse scarring noted to the lower extremity from previous ulcers. Mottling of skin noted with hyperpigmentation. Right- no open lesions abrasions or wounds noted. No active drainage, purulence, or bleeding noted. Diffuse scarring noted to the lower extremity from previous ulcers. Mottling of skin noted with hyperpigmentation. Vascular: DP pulses palpable and PT pulses nonpalpable. Varicosities noted. Capillary refill time less than 3 seconds. Temperature gradient warm to warm. Pedal hair absent. Mild nonpitting edema noted. Neuro: Protective sensation is grossly intact. MSK: Significant pain on palpation to the lower extremities and worse to the area of the left leg ulcer. No crepitus or fluctuance noted. Range of motion of the forefoot, hindfoot and ankle within normal limits but painful. Antalgic gait noted unassisted. Office Procedures AMB Debridement/Avulsion Podia Details: Cleansed the left leg ulcer with sterile saline and obtained a wound culture. Next, mechanically debrided the ulcer with 2x2 gauze and applied betadine to the periwound area, Santyl, adaptic, gauze, and michael. 89042-[id number] of active wound <20cm Procedure code (CPT) selection complete Office Meds collagenase clostridium histo. 250 unit/gram topical ointment Performing Provider: Summer Mccullough DPM Performing Location: [facility] [place] [facility] Administered by: Summer Mccullough DPM on 05/20/25 12:19 Dose Route Admin Location Dispensed Lot Number Expiration Date [facility] Pediatric Social Worker 1 appl topical 30 g [id number] [employer] Results Reviewed Results Reviewed: Obtained left leg wound culture to be sent for microbiology. Ordered ABIs, arterial and venous duplexes. Assessment & Plan Assessment & Plan (1) Varicose veins of right lower extremity with inflammation: Code(s): I83.11 - Varicose veins of right lower extremity with inflammation Category: Medical (2) Ulcer of left lower leg: Code(s): L97.929 - Non-pressure chronic ulcer of unspecified part of left lower leg with unspecified severity Category: Medical Qualifiers: Non-pressure ulcer stage: limited to breakdown of skin Qualified Code(s): L97.921 - Non-pressure chronic ulcer of unspecified part of left lower leg limited to breakdown of skin (3) Leg ulcer, left: Code(s): L97.929 - Non-pressure chronic ulcer of unspecified part of left lower leg with unspecified severity Category: Medical Qualifiers: Non-pressure ulcer stage: with fat layer exposed Qualified Code(s): L97.922 - Non-pressure chronic ulcer of unspecified part of left lower leg with fat layer exposed (4) Peripheral vascular disease: Code(s): I73.9 - Peripheral vascular disease, unspecified Category: Medical (5) Vasculitic leg ulcer: Code(s): L97.909 - Non-pressure chronic ulcer of unspecified part of unspecified lower leg with unspecified severity Category: Medical Plan Patient was informed and verbally consented to the use of an ambient scribe for clinic note documentation during this visit. I discussed with the patient the possibility of vasculitis contributing to her chronic lower extremity ulcers and the need for further vascular evaluation and vascular studies. We also talked about the potential need for a surgical excisional debridement and biopsy due to significant pain and if vascular studies are inconclusive. The importance of using compression stockings to alleviate symptoms was emphasized. - Obtained left leg wound culture. - Performed mechanical debridement of left leg ulcer and applied dressing. - Dressing is to be kept clean, dry, and intact. - Recommend use of compression stockings. - Ordered ABIs, venous duplex, and arterial duplex. - Provided vascular referral. - Pending vascular evaluation, will plan for surgical excisional debridement and biopsy of left leg ulcer. RTC in 1 week for continued wound care. Orders: Orders Routine Culture w Gram Stain Today L97.929 - Non-pressure chronic ulcer of unspecified part of left lower leg with unspecified severity AMB Debridement/Avulsion Podiatry Today L97.909 - Non-pressure chronic ulcer of unspecified part of unspecified lower leg with unspecified severity, L97.921 - Non-pressure chronic ulcer of unspecified part of left lower leg limited to breakdown of skin, L97.922 - Non-pressure chronic ulcer of unspecified part of left lower leg with fat layer exposed US SUHAS complete Today I73.9 - Peripheral vascular disease, unspecified, I83.11 - Varicose veins of right lower extremity with inflammation, L97.909 - Non-pressure chronic ulcer of unspecified part of unspecified lower leg with unspecified severity US arterial duplex LE BI Today I73.9 - Peripheral vascular disease, unspecified, I83.11 - Varicose veins of right lower extremity with inflammation, L97.909 - Non-pressure chronic ulcer of unspecified part of unspecified lower leg with unspecified severity US venous duplex LE BI Today I73.9 - Peripheral vascular disease, unspecified, I83.11 - Varicose veins of right lower extremity with inflammation, L97.909 - Non-pressure chronic ulcer of unspecified part of unspecified lower leg with unspecified severity Referrals Vascular Surgery Referral I73.9 - Peripheral vascular disease, unspecified, I83.11 - Varicose veins of right lower extremity with inflammation Medications: New [Multipodus boots] Please provide 1 pair 2 ea 0RF I73.9 - Peripheral vascular disease, unspecified, I83.11 - Varicose veins of right lower extremity with inflammation, L97.909 - Non-pressure chronic ulcer of unspecified part of unspecified lower leg with unspecified severity, L97.921 - Non-pressure chronic ulcer of unspecified part of left lower leg limited to breakdown of skin, L97.929 - Non-pressure chronic ulcer of unspecified part of left lower leg with unspecified severity Coding Level of Care Code New Pt Level 4 (18049) Diagnoses Varicose veins of right lower extremity with inflammation I83.11 Skin ulcer of left lower leg, limited to breakdown of skin L97.921 Non-pressure ulcer stage: limited to breakdown of skin Ulcer of left lower extremity with fat layer exposed L97.922 Non-pressure ulcer stage: with fat layer exposed Peripheral vascular disease I73.9 Vasculitic leg ulcer L97.909 CPT Codes Skin Debridement - CPT: 96825-Olzsogdjtup of active wound <20cm ([id number]) Time Spent (min) 60 Comment 15 min for procedure
--- OUTSIDE RECORDS SUMMARY | 2025-05-20 12:48 | XMS_ITS | Clinical Summary ---
Author Organization [employer] Address [address] [facility] [address] [place] [address] Care Team Providers Care Evp And Chief Operating Officer Name Role Phone Unavailable Primary Care Provider [...]
--- OUTSIDE RECORDS SUMMARY | 2025-05-20 12:48 | XMS_ITS | Clinical Summary ---
Author Organization [facility] Address [address] [place] [address] Care Team Providers Care Home Improvement Contractor Name Role Phone Milton Ackerman MD Primary Care Provider [phone] Medications Medication Sig Dispensed Refills Start Date [...] age to complete this topic Care Teams Home Improvement Contractor Relationship Specialty Start Date End Date Milton Ackerman MD [address] [place] [address] [address] [facility] [place], [place] [id number] PCP - General Internal Medicine 02/18/23
--- OUTSIDE RECORDS SUMMARY | 2025-05-20 12:48 | XMS_ITS | Clinical Summary ---
Author Organization [facility] Address [address] [place] [id number] Phone Care Team Providers Care Atmospheric Drier Tender Name Role Phone Milton Ackerman MD Primary Care Provider [phone] Medications gabapentin (NEURONTIN) 100 MG capsule Take [...] VACCINE (#1) 2025 COVID-19 VACCINE (1 - 2024-2 6 season) 2025 HEPATITIS A VACCINES Aged Out [...] Medical Devices Not on file Insurance [address] [place] [id number] [employer] MEDICARE PART A & B [facility] MEDICARE REPLACEMENT [facility] MEDICARE PART A & B [facility] MEDICARE REPLACEMENT [facility] MEDICARE PART A & B [facility] MEDICARE REPLACEMENT [place] MEDICARE PART A & B [facility] MEDICARE REPLACEMENT [address] [place] [id number] [place] MEDICARE PART A & B [facility] MEDICARE REPLACEMENT [facility] MEDICARE PART A & B [facility] MEDICARE REPLACEMENT Care Teams Atmospheric Drier Tender Relationship Specialty Start Date End Date Milton Ackerman MD [address] [place] [address] Dr Cortes, [place] [address] PCP - General Internal Medicine 05/23/24 Additional Source Comments The information contained in this document represents components of the legal health record. It is not the complete legal health record.[facility]
--- OUTSIDE RECORDS SUMMARY | 2025-05-20 12:48 | XMS_ITS | Clinical Summary ---
Author Organization [facility] Address [address] [place] [address] Care Team Providers Care Surface Hydrologist Name Role Phone Tyron Milton Primary Care Provider [phone] Allergies Active Allergy Reactions Criticality Noted Date [...] Screening 07/15/2024 Depression Screening and Follow-Up 07/15/2024 Fall Risk Screening 07/15/2024 Health Care Proxy Review 07/15/2024 Social Drivers of Health Annual Screening 07/15/2024 COVID-19 Vaccine (4 - 2024-2 6 season) 2025 07/06/2021, 09/22/2020, 08/31/2020 Influenza Vaccine (#1) 2025 , 03/31/2019 Hepatitis B Vaccines Aged Out No long er eligible based on patient's age to complete this topic Insurance [facility] Care Teams Surface Hydrologist Relationship Specialty Start Date End Date Milton Ackerman [address] [place] [address] dr Iram Walden, [place]GEL[place] [address] PCP - General Internal Medicine 01/20/24
== END 2025-05-20 11:31 | disposition home or self-care (01) ==
LOC: HO.HPODS 10:40
PROVIDERS: PCP Internal Medicine; Visit Provider Student in an Organized Health Care Education/Training Program
DX: I83.11 Varicose veins of right lower extremity with inflammation (principal); L97.921 Non-pressure chronic ulcer of unspecified part of left lower leg limited to breakdown of skin; L97.922 Non-pressure chronic ulcer of unspecified part of left lower leg with fat layer exposed; I73.9 Peripheral vascular disease, unspecified; L97.909 Non-pressure chronic ulcer of unspecified part of unspecified lower leg with unspecified severity
CPT/HCPCS: 97597; 99204

== ENCOUNTER 2025-05-27 11:24 | Outpatient (AMB) | payer OTHER, SELFPAY ==
[2025-05-27 11:37] VITALS: BMI 34.8
--- NOTE | 2025-05-27 11:37 | MHC.OFFVIS ---
Vital Signs 05/27/25 11:37 Height 5 ft 1 in Weight 184 lb BMI 34.8 Intake Visit Reasons: left leg ulcer Intake Note: Saira is a 79 year old female who presents today for a follow up of left leg ulcer. Patient reports she is not doing well, complaints of a lot of pain with no relief. Allergies Penicillins Allergy (Intermediate, Verified 05/20/25 10:56) Hives oxaprozin (From Daypro) Allergy (Unknown, Verified 05/20/25 10:56) RASH hydroxychloroquine Adverse Reaction (Intermediate, Verified 05/20/25 10:56) Abdominal Pain budesonide (Symbicort) Adverse Reaction (Unknown, Verified 05/20/25 10:56) nausea and vomiting HPI Comments Details: The patient is a 79-year-old female presenting with a left leg ulcer and severe pain to B/L LE. The heel pain is described as the most painful area B/L. The patient was unable to obtain the multipodus boot due to unavailability of the item. Patient is scheduled for her vascular studies within the next couple of weeks. Pain management has been challenging, with tramadol and oxycodone providing insufficient relief. The patient denies any new pedal injuries and denies any other pedal concerns. Patient was accompanied by her daughter. [facility] Medical History (Updated 05/27/25 @ 12:03 by Summer Mccullough DPM) Peripheral vascular disease with pain at rest Leg ulcer, left Peripheral vascular disease Overweight (BMI 25.0-29.9) Bilateral primary osteoarthritis of knee Constipation Osteoporosis Allergic rhinitis Insomnia Osteoarthritis Obesity (BMI 30-39.9) Depression Anxiety Vitamin D deficiency GERD without esophagitis Asthma Paroxysmal atrial fibrillation Pure hypercholesterolemia Benign essential hypertension PAF (paroxysmal atrial fibrillation) Surgical History History of colonoscopy Family History Father CVD (cardiovascular disease) Stroke Mother Medical history unknown Brother Bone cancer Sister Cancer of mouth Social History Housing: Apartment Alcohol intake: never Patient Tobacco Use Status: Never used Tobacco e-Cigarette/Vaping Use: Never Used Second Hand Smoke Exposure: Yes service: No Current occupational status: disabled Cognitive needs: No Hearing needs: No Vision needs: Yes (glasses) Review of Systems Const Details: - Integumentary: Reports chronic foot ulcers with intermittent healing and associated pain. - Vascular: Reports pain consistent and vascular insufficiency. All systems reviewed & are unremarkable except as noted in HPI and below Physical Exam Vital Signs: BMI result Body Mass Index 34.8 Extrem Other: Bilateral lower extremity focused physical exam: Derm: Left - ulcer noted to the posterior aspect of the leg at the area of the posterior ankle limited to subcutaneous tissue with fibrogranular raised wound bed noted measuring approximately 1.3x 0.8 x 0.1 cm . No probing to bone. No undermining or tunneling noted. No maceration periwound area noted. No active bleeding drainage or purulence noted. Diffuse scarring noted to the lower extremity from previous ulcers. Mottling of skin noted with hyperpigmentation. Superficial Abrasions noted to the heel. Right- no open lesions abrasions or wounds noted. No active drainage, purulence, or bleeding noted. Diffuse scarring noted to the lower extremity from previous ulcers. Mottling of skin noted with hyperpigmentation. Superficial Abrasions noted to the heel. Vascular: DP pulses palpable and PT pulses nonpalpable. Varicosities noted. Capillary refill time less than 3 seconds. Temperature gradient warm to warm. Pedal hair absent. Mild nonpitting edema noted. Neuro: Protective sensation is grossly intact. MSK: Significant pain on palpation to the lower extremities and worse to the area of the left leg ulcer. No crepitus or fluctuance noted. Range of motion of the forefoot, hindfoot and ankle within normal limits but painful. Antalgic gait noted unassisted. Office Procedures AMB Debridement/Avulsion Podia Details: Cleansed the left leg ulcer with sterile saline. Next, mechanically debrided the ulcer with 2x2 gauze and applied betadine to the periwound area, Santyl, adaptic, gauze, and michael. [id number] of active wound <20cm Procedure code (CPT) selection complete Office Meds collagenase clostridium histo. 250 unit/gram topical ointment Performing Provider: Summer Mccullough DPM Performing Location[place] [facility] [place] [facility] Administered by: Summer Mccullough DPM on 05/30/25 18:16 Dose Route Admin Location Dispensed Lot Number Expiration Date [facility] Turbine Technician 1 appl topical 30 g [id number] [employer] povidone-iodine 10 % topical swab Performing Provider: Summer Mccullough DPM Performing Location: [facility] [facility] Administered by: Summer Mccullough DPM on 05/30/25 18:16 Dose Route Admin Location Dispensed Lot Number Expiration Date [facility] Turbine Technician 1 appl topical 1 appl [id number] [employer]. Results Reviewed Results Reviewed: Left leg wound culture (05/20/25): No growth or organisms noted. Awaiting ABIs, arterial and venous duplexes. Assessment & Plan Assessment & Plan (1) Ulcer of left lower leg: Code(s): L97.929 - Non-pressure chronic ulcer of unspecified part of left lower leg with unspecified severity Category: Medical Qualifiers: Non-pressure ulcer stage: limited to breakdown of skin Qualified Code(s): L97.921 - Non-pressure chronic ulcer of unspecified part of left lower leg limited to breakdown of skin (2) Vasculitic leg ulcer: Code(s): L97.909 - Non-pressure chronic ulcer of unspecified part of unspecified lower leg with unspecified severity Category: Medical (3) Peripheral vascular disease with pain at rest: Code(s): I73.9 - Peripheral vascular disease, unspecified Category: Medical (4) Varicose veins of right lower extremity with inflammation: Code(s): I83.11 - Varicose veins of right lower extremity with inflammation Category: Medical (5) Leg ulcer, left: Code(s): L97.929 - Non-pressure chronic ulcer of unspecified part of left lower leg with unspecified severity Category: Medical Qualifiers: Non-pressure ulcer stage: with fat layer exposed Qualified Code(s): L97.922 - Non-pressure chronic ulcer of unspecified part of left lower leg with fat layer exposed (6) Peripheral vascular disease: Code(s): I73.9 - Peripheral vascular disease, unspecified Category: Medical Plan Patient was informed and verbally consented to the use of an ambient scribe for clinic note documentation during this visit. I discussed with the patient the importance of monitoring the heel pain and ensuring the correct type of multipodus boot is used for relief and to prevent pressure ulcers. We are awaiting vascular study results and vascular referral. Pain management options were discussed, including the possibility of consulting with pain management specialists if current medications remain ineffective. - Debrided the left leg ulcerative site and applied a dressing. - Patient is to keep the dressing clean, dry, and intact. - Await results of vascular studies to determine the need for potential vascular intervention. - Referral to pain management provided. RTC in 1-2 weeks for continued wound care. Orders: Orders AMB Debridement/Avulsion Podiatry 05/27/25 I73.9 - Peripheral vascular disease, unspecified, I83.11 - Varicose veins of right lower extremity with inflammation, L97.909 - Non-pressure chronic ulcer of unspecified part of unspecified lower leg with unspecified severity, L97.921 - Non-pressure chronic ulcer of unspecified part of left lower leg limited to breakdown of skin, L97.922 - Non-pressure chronic ulcer of unspecified part of left lower leg with fat layer exposed Referrals Pain Management Referral I73.9 - Peripheral vascular disease, unspecified, I83.019 - Varicose veins of right lower extremity with ulcer of unspecified site, I83.029 - Varicose veins of left lower extremity with ulcer of unspecified site, L97.909 - Non-pressure chronic ulcer of unspecified part of unspecified lower leg with unspecified severity, L97.919 - Non-pressure chronic ulcer of unspecified part of right lower leg with unspecified severity, L97.921 - Non-pressure chronic ulcer of unspecified part of left lower leg limited to breakdown of skin, L97.929 - Non-pressure chronic ulcer of unspecified part of left lower leg with unspecified severity Coding Level of Care Code Est Pt Level 4 (34381) Diagnoses Skin ulcer of left lower leg, limited to breakdown of skin L97.921 Non-pressure ulcer stage: limited to breakdown of skin Vasculitic leg ulcer L97.909 Peripheral vascular disease with pain at rest I73.9 Varicose veins of right lower extremity with inflammation I83.11 Ulcer of left lower extremity with fat layer exposed L97.922 Non-pressure ulcer stage: with fat layer exposed Peripheral vascular disease I73.9 CPT Codes Skin Debridement - CPT: 98658-Jsyfvsxbyjk of active wound <20cm ([id number]) Time Spent (min) 41 Comment 10 mins for procedure
--- OUTSIDE RECORDS SUMMARY | 2025-05-27 14:39 | XMS_ITS | Clinical Summary ---
Author Organization [facility] Address [address] [place] [address] Care Team Providers Care Automatic Mold Sander Name Role Phone Tyron Milton Primary Care Provider [phone] Allergies Active Allergy Reactions Criticality Noted Date [...] patient's age to complete this topic Insurance [facility] Care Teams Automatic Mold Sander Relationship Specialty Start Date End Date Milton Ackerman [address] [place] [address] dr Iram Walden, [place] [address] PCP - General Internal Medicine 01/20/24
--- OUTSIDE RECORDS SUMMARY | 2025-05-27 14:39 | XMS_ITS | Clinical Summary ---
Author Organization Located Within [facility] Address [address] [address] Phone Care Team Providers Care Digital Coordinator Name Role Phone Milton Ackerman MD Primary Care Provider [phone] Medications gabapentin (NEURONTIN) 100 MG capsule Take [...] patient's age to complete this topic IPV VACCINES Aged Out No longer eligi ble based on patient's age to complete this topic MENINGOCOCCAL VACCINES (ACWY) Aged Out No longer eligible based on patient's age to complete this topic MENINGOCOCCAL VACCINES (B) Aged Out N o longer eligible based on patient's age to complete this topic [place] [address] [facility] MEDICARE PART A & B [facility] MEDICARE REPLACEMENT [facility] MEDICARE PART A & B [facility] MEDICARE REPLACEMENT [facility] MEDICARE PART A & B [facility] MEDICARE REPLACEMENT [address] [place] [id number] [place] MEDICARE PART A & B [facility] MEDICARE REPLACEMENT [address] [place] [phone] [place] MEDICARE PART A & B [facility] MEDICARE REPLACEMENT [facility] MEDICARE PART A & B [facility] MEDICARE REPLACEMENT Care Teams Digital Coordinator Relationship Specialty Start Date End Date Milton Ackerman MD PCP - General Internal Medicine 05/23/24 Additional Source Comments The information contained in this document represents components of the legal health record. It is not the complete legal health record.[facility]
--- OUTSIDE RECORDS SUMMARY | 2025-05-27 14:39 | XMS_ITS | Clinical Summary ---
Author Organization [facility] Address [address] [place] [address] Care Team Providers Care Education Assistant Name Role Phone Milton Ackerman MD Primary Care Provider [phone] Medications Medication Sig Dispensed Refills Start Date [...] age to complete this topic Care Teams Education Assistant Relationship Specialty Start Date End Date Milton Ackerman MD [address] [place] [address] Dr [address] [facility] [place], [place] [id number] PCP - General Internal Medicine 02/18/23
--- OUTSIDE RECORDS SUMMARY | 2025-05-27 14:39 | XMS_ITS | Clinical Summary ---
Author Organization [employer] Address [address] [facility] 7[address] [place] [address] Care Team Providers Care Battery Charger Conveyor Line Name Role Phone Unavailable Primary Care Provider [...] 75+ series) 2020 COVID-19 Vaccine (1 - 2024-2 6 season) 2025 Influenza Vaccine (#1) 2025 HIB [...]
== END 2025-05-27 12:08 | disposition home or self-care (01) ==
LOC: HO.HPODS 11:25
PROVIDERS: PCP Internal Medicine; Visit Provider Student in an Organized Health Care Education/Training Program
DX: I83.11 Varicose veins of right lower extremity with inflammation (principal); I73.9 Peripheral vascular disease, unspecified; L97.921 Non-pressure chronic ulcer of unspecified part of left lower leg limited to breakdown of skin; L97.922 Non-pressure chronic ulcer of unspecified part of left lower leg with fat layer exposed
CPT/HCPCS: 97597; 99214

== ENCOUNTER → 2025-05-27 11:24 | Outpatient (BNVA) | payer OTHER, SELFPAY | PROVIDERS: PCP Internal Medicine; Visit Provider Student in an Organized Health Care Education/Training Program | DX: L97.322 Non-pressure chronic ulcer of left ankle with fat layer exposed (principal); I73.9 Peripheral vascular disease, unspecified; I83.11 Varicose veins of right lower extremity with inflammation | CPT/HCPCS: 97597; 99212 ==

== ENCOUNTER 2025-05-28 13:16 | Outpatient (REF) | payer OTHER, SELFPAY ==
--- NOTE | ~2025-05-28 | US_ITS ---
EXAMINATION: US LOWER EXTREMITY VENOUS (REFLUX EXAM), BILATERAL CLINICAL INFORMATION: Varicose veins of right lower extremity with inflammation COMPARISON: Left lower extremity venous ultrasound January 2025 and venous reflux exam October 2023 TECHNIQUE: Color flow triplex imaging and compression Doppler was performed to evaluate both the deep and the superficial systems bilaterally. To evaluate the superficial system, the examination was performed in the upright position. Color-flow Doppler ultrasound and compression ultrasound were utilized. In addition, maneuvers were utilized to demonstrate reflux. FINDINGS: 1. DEEP VENOUS ULTRASOUND OF THE RIGHT LOWER EXTREMITY: Common Femoral Vein: Compressible, normal respiratory variation and augmented flow. Femoral Vein: Compressible, normal color flow and augmentation. Popliteal Vein: Compressible, normal augmentation. Deep Reflux: There is no evidence of reflux in the deep system in either the common femoral vein, superficial femoral or the popliteal vein. There is no evidence of a Hurst's cyst. 2. SUPERFICIAL ULTRASOUND WITH DOPPLER OF RIGHT LOWER EXTREMITY: GREAT SAPHENOUS VEIN: Saphenofemoral Junction: 10 cm; Reflux: 0 ms Proximal Thigh: 0.4 cm; Reflux: 0 ms Mid Thigh: 0.3 cm; Reflux: 0 ms Distal Thigh: 0.2 cm; Reflux: 0 ms At Knee: 0.2 cm; Reflux: 0 ms Proximal Calf: 0.2 cm; Reflux: 0 ms Mid Calf: 0.2 cm; Reflux: 0 ms Distal Calf: 0.2 cm; Reflux: 0 ms DUPLICATED MEDIAL GREAT SAPHENOUS VEIN: Diameter: None imaged Reflux: NA DUPLICATED LATERAL GREAT SAPHENOUS VEIN: Diameter: 0.3 - 0.4 centimeters Reflux: NA SMALL SAPHENOUS VEIN: Saphenopopliteal Junction: 0.3 cm; Reflux: 0 ms Proximal: 0.2 cm; Reflux: 0 ms Distal: 0.3 cm; Reflux: 0 ms VEIN OF GIACOMINI: Size: NA Reflux: NA PERFORATORS: Location: Multiple perforators. These are seen in the proximal and mid calf communicating with the small saphenous vein, mid thigh communicating with the greater saphenous vein in the proximal calf commuting with with the greater saphenous vein. These measure between 0.1 and 0.3 cm. Reflux: NA VARICOSITIES: Location: None imaged. Size: NA Reflux: NA 3. DEEP VENOUS ULTRASOUND OF THE LEFT LOWER EXTREMITY: Common Femoral Vein: Compressible, normal respiratory variation and augmented flow. Femoral Vein: Compressible, normal color flow and augmentation. Popliteal Vein: Compressible, normal augmentation. Deep Reflux: There is no evidence of reflux in the deep system in either the common femoral vein, superficial femoral or the popliteal vein. There is no evidence of a Hurst's cyst. 4. SUPERFICIAL ULTRASOUND WITH DOPPLER OF LEFT LOWER EXTREMITY: GREAT SAPHENOUS VEIN: Saphenofemoral Junction: 0.8 cm; Reflux: 0 ms Proximal Thigh: 0.4 cm; Reflux: 0 ms Mid Thigh: 0.2 cm; Reflux: 0 ms Distal Thigh: 0.3 cm; Reflux: 0 ms At Knee: 0.2 cm; Reflux: 0 ms Proximal Calf: 0.2 cm; Reflux: 0 ms Mid Calf: 0.2 cm; Reflux: 1144 ms Distal Calf: 0.4 cm; Reflux: 0 ms DUPLICATED MEDIAL GREAT SAPHENOUS VEIN: Diameter: 0.2 to 0.4 cm Reflux: NA DUPLICATED LATERAL GREAT SAPHENOUS VEIN: Diameter: None imaged. Reflux: NA SMALL SAPHENOUS VEIN: Saphenopopliteal Junction: 0.2 cm; Reflux: 0 ms Proximal: 0.2 cm; Reflux: 0 ms Distal: 0.2 cm; Reflux: 0 ms VEIN OF GIACOMINI: Size: NA Reflux: NA PERFORATORS: Location: None imaged Size: NA Reflux: NA VARICOSITIES: Location: None Imaged Size: NA Reflux: NA US/US venous insuf bilat IMPRESSION: Right: No evidence of DVT or deep venous reflux. No greater or lesser saphenous vein reflux. Multiple perforators seen. Left: No evidence of DVT or deep venous reflux. Reflux in the left greater saphenous vein in the mid calf measuring 1.1 seconds. Electronically signed by: Aishwarya Cody MD 05/28/2025 03:10 PM [facility]
--- OUTSIDE RECORDS SUMMARY | 2025-05-28 19:28 | XMS_ITS | Clinical Summary ---
Author Organization [facility] Address [address] [place] [address] Care Team Providers Care Side Show Entertainer Name Role Phone Milton Ackerman MD Primary Care Provider [phone] Medications Medication Sig Dispensed Refills Start Date [...] age to complete this topic Care Teams Side Show Entertainer Relationship Specialty Start Date End Date Milton Ackerman MD [address] [place] [address] [facility] [place], [place] [id number] PCP - General Internal Medicine 02/18/23
--- OUTSIDE RECORDS SUMMARY | 2025-05-28 19:28 | XMS_ITS | Clinical Summary ---
Author Organization [facility] Address [address] [address] Phone Care Team Providers Care Econometrician Name Role Phone Milton Ackerman MD Primary Care Provider [phone] Medications gabapentin (NEURONTIN) 100 MG capsule Take [...] Medical [place] [id number] [facility] MEDICARE PART A & B [facility] MEDICARE REPLACEMENT [facility] MEDICARE PART A & B [facility] MEDICARE REPLACEMENT [facility] MEDICARE PART A & B [facility] MEDICARE REPLACEMENT [address] [place] [phone] [place] MEDICARE PART A & B [facility] MEDICARE REPLACEMENT [address] [place] [phone] [place] MEDICARE PART A & B [facility] MEDICARE REPLACEMENT [facility] MEDICARE PART A & B Member Subscriber Plan / Payer (Ef fective 2013-Present) Name:Saira Alaniz Member ID:[id number] Relation to Subscriber:Self Name:Saira Alaniz Subscriber ID:[id number] Payer ID:[id number] Group ID:Not on file Type:Medicare Address: [facility] [employer] [facility] [address] [place] [id number] [facility] MEDICARE REPLACEMENT Care Teams Econometrician Relationship Specialty Start Date End Date Milton Ackerman MD [address] [place] [address] Dr Cortes, [place]GELICA [address] PCP - General Internal Medicine 05/23/24 Additional Source Comments The information contained in this document represents components of the legal health record. It is not the complete legal health record.[facility]
--- OUTSIDE RECORDS SUMMARY | 2025-05-28 19:28 | XMS_ITS | Clinical Summary ---
Author Organization [facility] Address [address] [place] [address] Care Team Providers Care Maori Liaison Adviser Name Role Phone Tyron Milton Primary Care Provider [phone] Allergies Active Allergy Reactions Criticality Noted Date [...] patient's age to complete this topic Insurance [facility] Care Teams Maori Liaison Adviser Relationship Specialty Start Date End Date Milton Ackerman [address] [place] [address] dr Iram Walden, [place]GEL[place] [address] PCP - General Internal Medicine 01/20/24
== END 2025-05-28 13:17 | disposition home or self-care (01) ==
LOC: HO.US 13:16
PROVIDERS: PCP Internal Medicine; Visit Provider Student in an Organized Health Care Education/Training Program
DX: I83.11 Varicose veins of right lower extremity with inflammation (principal); I73.9 Peripheral vascular disease, unspecified; L97.919 Non-pressure chronic ulcer of unspecified part of right lower leg with unspecified severity
CPT/HCPCS: 93970

== ENCOUNTER → 2025-05-28 13:19 | Outpatient (BNV) | payer OTHER, SELFPAY | PROVIDERS: PCP Internal Medicine; Visit Provider Radiology Diagnostic Radiology | DX: I83.11 Varicose veins of right lower extremity with inflammation (principal) | CPT/HCPCS: 93970 ==

== ENCOUNTER 2025-06-04 15:16 | Outpatient (REF) | payer OTHER, SELFPAY ==
--- NOTE | ~2025-06-04 | US_ITS ---
EXAMINATION: US NONINVASIVE ASSESSMENT OF THE LOWER EXTREMITY WITH ARTERIAL DUPLEX AND ANKLE BRACHIAL INDICES (ABIS) CLINICAL INFORMATION: COMPARISON: Previous exams most recent February 2023 TECHNIQUE: Duplex Doppler techniques with waveform analysis and measurement of velocities in the common femoral, profunda femoris, superficial femoral, popliteal and tibial arteries were performed. In addition, ankle pulse volume recordings, ankle pressure measurements and ankle brachial indices were obtained of the lower extremity arterial system. The study was performed only at rest. FINDINGS: NONINVASIVE ASSESSMENT OF THE ARTERIES OF BILATERAL LOWER EXTREMITIES WITH ABIs: RIGHT LEG: Ankle-brachial index: 1.32. This may be falsely elevated due to increased blood pressure greater than 200. Ankle PVR: Abnormal with loss of dicrotic notch and slight decrease in amplitude LEFT LEG: Ankle-brachial index: 1.33. This may be falsely elevated due to increased blood pressure greater than 200. Left ankle PVR: Abnormal with loss of dicrotic notch. SUHAS Reference: 0.9 - 1.4 = normal - no significant arterial disease 0.7 - 0.89 = mild peripheral arterial disease 0.51 - 0.69 = moderate peripheral arterial disease 0.50 = severe peripheral arterial disease RIGHT LOWER EXTREMITY DUPLEX ULTRASOUND: Common femoral artery: 114 cm/s. Diastolic flow reversal: Triphasic Profunda femoris artery: 64 cm/s. Diastolic flow reversal: Triphasic Superficial femoral artery (proximal): 61 cm/s. Diastolic flow reversal: Triphasic Superficial femoral artery (mid): 92 cm/s. Diastolic flow reversal: Triphasic Superficial femoral artery (distal): 84 cm/s. Diastolic flow reversal: Triphasic Popliteal artery: 83 cm/s Diastolic flow reversal: Triphasic Posterior tibial artery: 131 cm/s Diastolic flow reversal: Triphasic LEFT LOWER EXTREMITY DUPLEX ULTRASOUND: Common femoral artery: 125 cm/s. Diastolic flow reversal: Triphasic Profunda femoris artery: 73 cm/s. Diastolic flow reversal: Triphasic Superficial femoral artery (proximal): 106 cm/s. Diastolic flow reversal: Triphasic Superficial femoral artery (mid): 76 cm/s. Diastolic flow reversal: Triphasic Superficial femoral artery (distal): 71 cm/s. Diastolic flow reversal: Triphasic Popliteal artery: 83 cm/s Diastolic flow reversal: Triphasic Posterior tibial artery: 92 cm/s Diastolic flow reversal: Triphasic US/US arterial duplex BI w/ SUHAS IMPRESSION: The right SUHAS is 1.32 and the left SUHAS is 1.33. These may be artifactually elevated due to increased blood pressure and decreased vessel compressibility. Abnormal PVRs bilaterally, right greater than left, suggestive of mild atherosclerotic disease. Peak systolic velocities and waveforms are normal throughout both lower extremities. Electronically signed by: Aishwarya Cody MD 06/04/2025 04:42 PM [facility] [place]
--- OUTSIDE RECORDS SUMMARY | 2025-06-04 15:20 | XMS_ITS | Clinical Summary ---
Author Organization [facility] Address [address] [place] [id number] Phone Care Team Providers Care Cooky Packer Name Role Phone Milton Ackerman MD Primary Care Provider [phone] Medications gabapentin (NEURONTIN) 100 MG capsule Take [...] topic Medical Devices Not on file Insurance [facility] MEDICARE PART A & B [facility] MEDICARE REPLACEMENT [facility] MEDICARE PART A & B [facility] MEDICARE REPLACEMENT [facility] MEDICARE PART A & B [facility] MEDICARE REPLACEMENT [place] MED[place] PART A & B [facility] MEDICARE REPLACEMENT [place] MED[place] PART A & B [facility] MEDICARE [facility]PLACEMENT [facility] MEDICARE PART A & B [facility] MEDICARE REPLACEMENT Care Teams Cooky Packer Relationship Specialty Start Date End Date Milton Ackerman MD [address] [place] [address] Dr Cortes, [place]GEL[place] [address] PCP - General Internal Medicine 05/23/24 Additional Source Comments The information contained in this document represents components of the legal health record. It is not the complete legal health record.[facility]
--- OUTSIDE RECORDS SUMMARY | 2025-06-04 15:20 | XMS_ITS | Clinical Summary ---
Author Organization [employer] Address [address] [facility] 7t [place] [address] Care Team Providers Care Endless Belt Finisher Name Role Phone Unavailable Primary Care Provider [...]
--- OUTSIDE RECORDS SUMMARY | 2025-06-04 15:20 | XMS_ITS | Clinical Summary ---
Author Organization [facility] Address [address] [place] [address] Care Team Providers Care Woods Rider Name Role Phone Milton Ackerman MD Primary Care Provider [phone] Medications Medication Sig Dispensed Refills Start Date [...] age to complete this topic Care Teams Woods Rider Relationship Specialty Start Date End Date Milton Ackerman MD [address] [place] [address] Dr [address] [facility] [place], [place] [id number] PCP - General Internal Medicine 02/18/23
--- OUTSIDE RECORDS SUMMARY | 2025-06-04 15:20 | XMS_ITS | Clinical Summary ---
Author Organization [facility] Address [address] [place] [address] Care Team Providers Care Bleach Boiler Filler Name Role Phone Tyron Milton Primary Care Provider [phone] Allergies Active Allergy Reactions Criticality Noted Date [...] Annual Screening 07/15/2024 Influenza Vaccine (#1) 2025 , 03/31/2019 COVID-19 Vaccine (4 - 2024-2 6 season) 2025 07/06/2021, 09/22/2020, 08/31/2020 Hepatitis B Vaccines Aged Out No long er eligible based on patient's age to complete this topic Insurance [facility] Care Teams Bleach Boiler Filler Relationship Specialty Start Date End Date Milton Ackerman [address] [place] [address] dr Iram Walden, [place]EL[place] [address] PCP - General Internal Medicine 01/20/24
== END 2025-06-04 15:17 | disposition home or self-care (01) ==
LOC: HO.US 15:16
PROVIDERS: PCP Internal Medicine; Visit Provider Student in an Organized Health Care Education/Training Program
DX: I83.209 Varicose veins of unspecified lower extremity with both ulcer of unspecified site and inflammation (principal); L97.909 Non-pressure chronic ulcer of unspecified part of unspecified lower leg with unspecified severity; I73.9 Peripheral vascular disease, unspecified
CPT/HCPCS: 93922; 93925

== ENCOUNTER → 2025-06-04 15:18 | Outpatient (BNV) | payer OTHER, SELFPAY | PROVIDERS: PCP Internal Medicine; Visit Provider Radiology Diagnostic Radiology | DX: L97.929 Non-pressure chronic ulcer of unspecified part of left lower leg with unspecified severity (principal); I73.9 Peripheral vascular disease, unspecified | CPT/HCPCS: 93922; 93925 ==

== ENCOUNTER 2025-06-07 11:00 | Outpatient (AMB) | payer OTHER, SELFPAY ==
[2025-06-07 11:19] VITALS: BMI 34.8
--- NOTE | 2025-06-07 11:19 | A.OFFVIS_ITS ---
Vital Signs 06/07/25 11:19 Height 5 ft 1 in Weight 184 lb BMI 34.8 Intake Visit Reasons: left leg ulcer Intake Note: Saira is a 79 year old female who presents today for a follow up on her left leg ulcer. At her last visit her left leg ulcer was debrided and dressing was applied patient was advised to keep dressing clean, dry, and intact. Vascular studies was ordered and results are in chart referral was also placed for pain management. Patient reports she has not started pain management as of yet and she states her pain has increased within the past two days. She has an appointment scheduled with vascular on 06/19/25 Allergies Penicillins Allergy (Intermediate, Verified 05/20/25 10:56) Hives oxaprozin (From Daypro) Allergy (Unknown, Verified 05/20/25 10:56) RASH hydroxychloroquine Adverse Reaction (Intermediate, Verified 05/20/25 10:56) Abdominal Pain budesonide (Symbicort) Adverse Reaction (Unknown, Verified 05/20/25 10:56) nausea and vomiting HPI Comments Details: The patient is a 79-year-old female presenting with a left leg ulcer and B/L LE severe pain. Patient was accompanied by her daughter. The patient is currently scheduled for upcoming appointments to vascular and pain management. Patient recently had vascular studies performed. She denies any new pedal injuries. and denies any other pedal concerns. [facility] Medical History (Updated 05/27/25 @ 12:03 by Summer Mccullough DPM) Peripheral vascular disease with pain at rest Leg ulcer, left Peripheral vascular disease Overweight (BMI 25.0-29.9) Bilateral primary osteoarthritis of knee Constipation Osteoporosis Allergic rhinitis Insomnia Osteoarthritis Obesity (BMI 30-39.9) Depression Anxiety Vitamin D deficiency GERD without esophagitis Asthma Paroxysmal atrial fibrillation Pure hypercholesterolemia Benign essential hypertension PAF (paroxysmal atrial fibrillation) Surgical History History of colonoscopy Family History Father CVD (cardiovascular disease) Stroke Mother Medical history unknown Brother Bone cancer Sister Cancer of mouth Social History Housing: Apartment Alcohol intake: never Patient Tobacco Use Status: Never used Tobacco e-Cigarette/Vaping Use: Never Used Second Hand Smoke Exposure: Yes service: No Current occupational status: disabled Cognitive needs: No Hearing needs: No Vision needs: Yes (glasses) Review of Systems Const Details: - Integumentary: Reports chronic foot ulcers with intermittent healing and associated pain. - Vascular: Reports pain consistent and vascular insufficiency. All systems reviewed & are unremarkable except as noted in HPI and below Physical Exam Vital Signs: BMI result Body Mass Index 34.8 Extrem Other: Bilateral lower extremity focused physical exam: Derm: Left - ulcer noted to the posterior aspect of the leg at the area of the posterior ankle limited to subcutaneous tissue with a mildly fibrogranular raised wound bed noted measuring approximately 1.0x 0.6 x 0.1 cm, improved from last visit . No probing to bone. No undermining or tunneling noted. No maceration periwound area noted. No active bleeding drainage or purulence noted. Diffuse scarring noted to the lower extremity from previous ulcers. Mottling of skin noted with hyperpigmentation. Superficial Abrasions noted to the heel. Right- no open lesions abrasions or wounds noted. No active drainage, purulence, or bleeding noted. Diffuse scarring noted to the lower extremity from previous ulcers. Mottling of skin noted with hyperpigmentation. Superficial Abrasions noted to the heel. Vascular: DP pulses palpable and PT pulses nonpalpable. Varicosities noted. Capillary refill time less than 3 seconds. Temperature gradient warm to warm. Pedal hair absent. Mild nonpitting edema noted. Neuro: Protective sensation is grossly intact. MSK: Significant pain on palpation to the lower extremities and worse to the area of the left leg ulcer. No crepitus or fluctuance noted. Range of motion of the forefoot, hindfoot and ankle within normal limits but painful. Antalgic gait noted unassisted. Office Procedures AMB Debridement/Avulsion Podia Details: Cleansed the left leg ulcer with sterile saline. Next, mechanically debrided the ulcer with 4x4 gauze and applied betadine to the periwound area, Santyl, adaptic, gauze, and michael. 82807-Motftfylvta of active wound <20cm Procedure code (CPT) selection complete Office Meds collagenase clostridium histo. 250 unit/gram topical ointment Performing Provider: Summer Mccullough DPM [place] [facility] [place] [facility] Administered by: Summer Mccullough DPM on 06/08/25 20:16 Dose Route Admin Location Dispensed Lot Number Expiration Date [facility] Physician Representative 1 appl topical 30 g [id number] BURROWS&N/UNI RACHELLE povidone-iodine 10 % topical swab Performing Provider: Summer Mccullough DPM [place]forming [place] [facility] [place] [facility] Administered by: Summer Mccullough DPM on 06/08/25 20:16 Dose Route Admin Location Dispensed Lot Number Expiration Date [facility] Physician Representative 1 appl topical 1 appl [id number] [employer] IND [place]. Results Reviewed Results Reviewed: Left leg wound culture (05/20/25): No growth or organisms noted. B/L LE Arterial Duplex (06/04/25): The right SUHAS is 1.32 and the left SUHAS is 1.33. These may be artifactually elevated due to increased blood pressure and decreased vessel compressibility. Abnormal PVRs bilaterally, right greater than left, suggestive of mild atherosclerotic disease. Peak systolic velocities and waveforms are normal throughout both lower extremities. B/L LE Venous Duplex (05/28/25): Right: No evidence of DVT or deep venous reflux. No greater or lesser saphenous vein reflux. Multiple perforators seen. Left: No evidence of DVT or deep venous reflux. Reflux in the left greater saphenous vein in the mid calf measuring 1.1 seconds. Assessment & Plan Assessment & Plan (1) Ulcer of left lower leg: Code(s): L97.929 - Non-pressure chronic ulcer of unspecified part of left lower leg with unspecified severity Category: Medical Qualifiers: Non-pressure ulcer stage: limited to breakdown of skin Qualified Code(s): L97.921 - Non-pressure chronic ulcer of unspecified part of left lower leg limited to breakdown of skin (2) Vasculitic leg ulcer: Code(s): L97.909 - Non-pressure chronic ulcer of unspecified part of unspecified lower leg with unspecified severity Category: Medical (3) Peripheral vascular disease with pain at rest: Code(s): I73.9 - Peripheral vascular disease, unspecified Category: Medical (4) Varicose veins of right lower extremity with inflammation: Code(s): I83.11 - Varicose veins of right lower extremity with inflammation Category: Medical (5) Leg ulcer, left: Code(s): L97.929 - Non-pressure chronic ulcer of unspecified part of left lower leg with unspecified severity Category: Medical Qualifiers: Non-pressure ulcer stage: with fat layer exposed Qualified Code(s): L97.922 - Non-pressure chronic ulcer of unspecified part of left lower leg with fat layer exposed (6) Peripheral vascular disease: Code(s): I73.9 - Peripheral vascular disease, unspecified Category: Medical Plan Patient was informed and verbally consented to the use of an ambient scribe for clinic note documentation during this visit. I discussed with the patient the importance of the upcoming vascular surgery consultation to address the arterial insufficiency, which is crucial for improving blood flow and preventing further complications. We also talked about the role of pain management in alleviating symptoms and the need for regular follow-up to monitor the patient's condition. - Debrided the left leg ulcerative site and applied a dressing. - Patient is to keep the dressing clean, dry, and intact. - Attend the vascular surgery and pain management consultation to evaluate and potentially address the arterial insufficiency. - Use multipodus boots and offloading modalities. RTC in 1 week for continued wound care. Orders: Orders AMB Debridement/Avulsion Podiatry 06/07/25 I73.9 - Peripheral vascular disease, unspecified, I83.11 - Varicose veins of right lower extremity with inflammation, L97.909 - Non-pressure chronic ulcer of unspecified part of unspecified lower leg with unspecified severity, L97.921 - Non-pressure chronic ulcer of unspecified part of left lower leg limited to breakdown of skin, L97.922 - Non- pressure chronic ulcer of unspecified part of left lower leg with fat layer exposed Coding Level of Care Code Est Pt Level 4 (90516) Diagnoses Skin ulcer of left lower leg, limited to breakdown of skin L97.921 Non-pressure ulcer stage: limited to breakdown of skin Vasculitic leg ulcer L97.909 Peripheral vascular disease with pain at rest I73.9 Varicose veins of right lower extremity with inflammation I83.11 Ulcer of left lower extremity with fat layer exposed L97.922 Non-pressure ulcer stage: with fat layer exposed Peripheral vascular disease I73.9 CPT Codes Skin Debridement - CPT: 36049-Ujtawyistsc of active wound <20cm ([id number]) Time Spent (min) 40 Comment 10 mins for procedure
--- OUTSIDE RECORDS SUMMARY | 2025-06-07 14:08 | XMS_ITS | Clinical Summary ---
Author Organization [facility] Address [address] [place] [address] Care Team Providers Care Firer Automatic Stoker Name Role Phone Tyron Milton Primary Care Provider [phone] Allergies Active Allergy Reactions Criticality Noted Date [...] patient's age to complete this topic Insurance [facility] Care Teams Firer Automatic Stoker Relationship Specialty Start Date End Date Milton Ackerman [address] [place] [address] dr Iram Walden, ANGELICA [address] PCP - General Internal Medicine 01/20/24
--- OUTSIDE RECORDS SUMMARY | 2025-06-07 14:08 | XMS_ITS | Clinical Summary ---
Author Organization [facility] Address [address] [place] [id number] Phone Care Team Providers Care Boat Engine Mechanic Name Role Phone Milton Ackerman MD Primary Care Provider [phone] Medications gabapentin (NEURONTIN) 100 MG capsule Take [...] topic Medical Devices Not on file [facility] & B [facility] MEDICARE REPLACEMENT [facility] MEDICARE PART A & B [facility] MEDICARE REPLACEMENT [facility] MEDICARE PART A & B [facility] MEDICARE REPLACEMENT [place] MEDICARE PART A & B [facility] MEDICARE REPLACEMENT [place] MEDICARE PART A & B [facility] MEDICARE REPLACEMENT [facility] MEDICARE PART A & B [facility] MEDICARE REPLACEMENT Care Teams Boat Engine Mechanic Relationship Specialty Start Date End Date Milton Ackerman MD [address] [place] [address] Dr Cortes, ANGELICA [address] PCP - General Internal Medicine 05/23/24 Additional Source Comments The information contained in this document represents components of the legal health record. It is not the complete legal health record.[facility]
--- OUTSIDE RECORDS SUMMARY | 2025-06-07 14:08 | XMS_ITS | Clinical Summary ---
Author Organization [employer] Address [address] [facility] 7t [place] [address] Care Team Providers Care Foot Doctor Name Role Phone Unavailable Primary Care Provider [...]
--- OUTSIDE RECORDS SUMMARY | 2025-06-07 14:08 | XMS_ITS | Clinical Summary ---
Author Organization [facility] Address [address] [place] [address] Care Team Providers Care Tool Drawing Checker Name Role Phone Milton Ackerman MD Primary Care Provider [phone] Medications Medication Sig Dispensed Refills Start Date [...] age to complete this topic Care Teams Tool Drawing Checker Relationship Specialty Start Date End Date Milton Ackerman MD [address] [place] [address] [facility] [place], [place] [id number] PCP - General Internal Medicine 02/18/23
== END 2025-06-07 11:37 | disposition home or self-care (01) ==
LOC: HO.HPODS 11:01
PROVIDERS: PCP Internal Medicine; Visit Provider Student in an Organized Health Care Education/Training Program
DX: I83.11 Varicose veins of right lower extremity with inflammation (principal); I73.9 Peripheral vascular disease, unspecified; L97.909 Non-pressure chronic ulcer of unspecified part of unspecified lower leg with unspecified severity; L97.921 Non-pressure chronic ulcer of unspecified part of left lower leg limited to breakdown of skin; L97.922 Non-pressure chronic ulcer of unspecified part of left lower leg with fat layer exposed
CPT/HCPCS: 97597; 99214

== ENCOUNTER → 2025-06-07 11:00 | Outpatient (BNVA) | payer OTHER, SELFPAY | PROVIDERS: PCP Internal Medicine; Visit Provider Student in an Organized Health Care Education/Training Program | DX: L97.322 Non-pressure chronic ulcer of left ankle with fat layer exposed (principal); I73.9 Peripheral vascular disease, unspecified; I83.11 Varicose veins of right lower extremity with inflammation | CPT/HCPCS: 97597; 99212 ==

== ENCOUNTER 2025-06-15 11:02 | Outpatient (AMB) | payer OTHER, SELFPAY ==
--- NOTE | 2025-06-15 11:11 | A.OFFVIS_ITS ---
Intake Visit Reasons: [facility]PERVISOR T[facility] referral for PVD/VV Intake Note: Patient presents for PVD/VV. Has been experiencing ulcers and pain for about 4 years. No open ulcers at the moment. Both legs swell occasionally, stabbing pain especially at night. Pain in the heels as well. Legs get hot as well. 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 She had originally seen podiatry for foot pain. She has pain located in the back of her left foot more so the Achilles region. She has prior history of open ulcerations back there. The current time they do have closed off. She has been seeing our podiatry team. Plan is for surgical excisional debridement after vascular workup. She now presents to us for vascular evaluation. [facility] Medical History Peripheral vascular disease with pain at rest Leg ulcer, left Peripheral vascular disease Overweight (BMI 25.0-29.9) Bilateral primary osteoarthritis of knee Constipation Osteoporosis Allergic rhinitis Insomnia Osteoarthritis Obesity (BMI 30-39.9) Depression Anxiety Vitamin D deficiency GERD without esophagitis Asthma Paroxysmal atrial fibrillation Pure hypercholesterolemia Benign essential hypertension PAF (paroxysmal atrial fibrillation) Surgical History History of colonoscopy Family History Father CVD (cardiovascular disease) Stroke Mother Medical history unknown Brother Bone cancer Sister Cancer of mouth Social History Housing: Apartment Alcohol intake: never Patient Tobacco Use Status: Never used Tobacco e-Cigarette/Vaping Use: Never Used Second Hand Smoke Exposure: Yes service: No Current occupational status: disabled Cognitive needs: No Hearing needs: No Vision needs: Yes (glasses) Review of Systems Const All systems reviewed & are unremarkable except as noted in HPI and below Reports no additional complaints ENT Reports Normal hearing present Card Denies chest pain, Denies chest pain at rest, Denies chest pain with activity and Denies pedal edema Resp Denies cough GI Denies abdominal pain Musc Denies abnormal gait, Denies muscle cramps and Denies radiating pain into limb Skin/Breast Denies skin ulcer and Denies wounds Neuro Reports Normal hearing present and Denies abnormal gait Psych Reports no additional complaints Physical Exam Const General: cooperative, healthy appearing and comfortable Orientation/consciousness: oriented to person, oriented to place and oriented to time HEENT Head: Yes normal to inspection Neck Neck: Yes normal visual inspection Carotids: no bruits Chest Chest palpation & inspection: normal inspection of the chest Resp Effort & Inspection: normal respiratory effort and able to speak in complete sentences Auscultation: clear to auscultation bilaterally, no crackles, no rales, no rhonchi and no wheezes Cardio Other: Right side palpable posterior tibial and left side palpable dorsalis pedis and posterior tibial pulses Rate: regular rate Rhythm: regular rhythm Heart sounds: S1 normal heart sound present and S2 normal heart sound present Bruits: no carotid bruits GI Inspection: Yes normal to inspection Skin Wounds: no wounds Hair: normal Neuro General: oriented to person, oriented to place and oriented to time Cranial nerves: Yes CN's II-XII intact bilaterally and Yes Normal hearing present Cognition (Neuro): normal cognition Motor exam (neuro): 5/5 motor strength present throughout Extrem Other: venous exam: +1 edema General: No clubbing, No cyanosis and Yes edema Psych Appearance: grossly normal Mental Status: mental status grossly normal Speech and movement: Normal speech and movement present Results Reviewed Results Reviewed: Arterial testing dated 06/04/2025 demonstrates SUHAS on the right of 1.32 and on the left of 1.33. Although artifactually elevated she does have triphasic waveforms all the way down both sides. Brief summary of venous insufficiency testing is as follows: right great saphenous vein: negative right small saphenous vein: negative right accessory vein: none present left great saphenous vein: negative left small saphenous vein: negative left accessory vein: none present Please note there is no evidence of any venous aneurysms or significant tortuosity Assessment & Plan Assessment & Plan (1) Bilateral lower extremity pain: Code(s): M79.604 - Pain in right leg; M79.605 - Pain in left leg Category: Medical Plan: In short patient is negative for any significant vascular disease. She does have palpable pulses in arterial testing is within normal limits. In addition she is negative for any significant venous insufficiency testing. She is stable from our perspective for any podiatric intervention inclusive of debridements. She will follow up with us on an as-needed basis. Thank you for allowing us to assist in her care. If there are any questions or concerns please do not hesi wahl to contact us. Coding Level of Care Code New Pt Level 4 (45410) Diagnoses Bilateral lower extremity pain M79.604; M79.605
--- OUTSIDE RECORDS SUMMARY | 2025-06-15 13:02 | XMS_ITS | Clinical Summary ---
Author Organization [facility] Address [address] [place] [address] Care Team Providers Care Coconut Candy Maker Name Role Phone Milton Ackerman MD Primary Care Provider [phone] Medications Medication Sig Dispensed Refills Start Date [...] age to complete this topic Care Teams Coconut Candy Maker Relationship Specialty Start Date End Date Milton Ackerman MD [address] [place] [address] [address] [facility] [place], [place] [phone] PCP - General Internal Medicine 02/18/23
--- OUTSIDE RECORDS SUMMARY | 2025-06-15 13:02 | XMS_ITS | Clinical Summary ---
Author Organization [facility] Address [address] [place] [address] Care Team Providers Care Shearing Machine Operator Name Role Phone Tyron Milton Primary Care Provider [phone] Allergies Active Allergy Reactions Criticality Noted Date [...] to complete this topic Insurance [facility] Care Teams Shearing Machine Operator Relationship Specialty Start Date End Date Milton Ackerman [address] [place] [address] dr Iram Walden, ANGELICA [address] PCP - General Internal Medicine 01/20/24
--- OUTSIDE RECORDS SUMMARY | 2025-06-15 13:03 | XMS_ITS | Clinical Summary ---
Author Organization [facility] Address [address] [address] Phone Care Team Providers Care Instructor Dramatic Arts Name Role Phone Milton Ackerman MD Primary Care Provider [phone] Medications gabapentin (NEURONTIN) 100 MG capsule Take [...] topic Medical Devices Not on file [facility] & B [facility] MEDICARE REPLACEMENT [facility] MEDICARE PART A & B [facility] MEDICARE REPLACEMENT [facility] MEDICARE PART A & B [facility] MEDICARE REPLACEMENT [place] MEDICARE PART A & B [facility] MEDICARE REPLACEMENT [place] MEDICARE PART A & B [facility] MEDICARE REPLACEMENT [facility] MEDICARE PART A & B [facility] MEDICARE REPLACEMENT Care Teams Instructor Dramatic Arts Relationship Specialty Start Date End Date Milton Ackerman MD [address] [place] [address] Dr Cortes, ANGELICA [address] PCP - General Internal Medicine 05/23/24 Additional Source Comments The information contained in this document represents components of the legal health record. It is not the complete legal health record.[facility]
--- OUTSIDE RECORDS SUMMARY | 2025-06-15 13:03 | XMS_ITS | Clinical Summary ---
Author Organization [employer] Address [address] [facility] 7[address] [place] [address] Care Team Providers Care Legal Assistant Name Role Phone Unavailable Primary Care Provider [...]
== END 2025-06-15 11:42 | disposition home or self-care (01) ==
LOC: HO.HVS 11:03
PROVIDERS: PCP Internal Medicine; Visit Provider Surgery Vascular Surgery
DX: M79.604 Pain in right leg (principal); M79.605 Pain in left leg
CPT/HCPCS: 99214

== ENCOUNTER → 2025-06-15 11:02 | Outpatient (BNVA) | payer OTHER, SELFPAY | PROVIDERS: PCP Internal Medicine; Visit Provider Surgery Vascular Surgery | DX: M79.604 Pain in right leg (principal); M79.605 Pain in left leg | CPT/HCPCS: 99212 ==

== ENCOUNTER 2025-06-22 10:12 | Outpatient (AMB) | payer OTHER, SELFPAY ==
[2025-06-22 10:27] VITALS: BP 140/82; PULSE 92; O2SAT 96; BMI 33.1
--- NOTE | 2025-06-22 10:27 | A.OFFPC_ITS ---
Vital Signs 06/22/25 10:27 Height 5 ft 1 in Weight 175 lb BMI 33.1 BP 140/82 H Blood Pressure Location Lt brachial Position Sitting Pulse 92 Pulse Source Pulse Oximeter Pulse Oximetry (%) 96 Oxygen Delivery Method Room Air Intake Visit Reasons: Ulcers to Bilateral LE Allergies Penicillins Allergy (Intermediate, Verified 06/22/25 11:23) Hives oxaprozin (From Daypro) Allergy (Unknown, Verified 06/22/25 11:23) RASH hydroxychloroquine Adverse Reaction (Intermediate, Verified 06/22/25 11:23) Abdominal Pain budesonide (Symbicort) Adverse Reaction (Unknown, Verified 06/22/25 11:23) nausea and vomiting Medication List - Last Reconciled 06/22/25 by Milton Ackerman MD acetaminophen ER 650 mg PO Q8H PRN 30 days Advair HFA 115-21 mcg/actuation (fluticasone propion-salmeterol) 2 puffs inhalation BID NS albuterol sulfate 2.5 mg (3 mL) continuous nebulization QID PRN alclometasone 0.05% 0.05 appl topical DAILY amitriptyline 20 mg (2 x 10 mg) PO BEDTIME 90 days atorvastatin 80 mg PO BEDTIME 90 days calcium carbonate-vit D3-min 600 mg calcium- 200 unit 1 tab PO DAILY candesartan 32 mg PO DAILY cholecalciferol (vitamin D3) 25 mcg PO DAILY 90 days [disposable bed pads As directed 4 per day ] doxycycline hyclate 100 mg PO BID 7 days fluticasone propionate 110 mcg/actuation (Flovent HFA) 2 puffs inhalation BID 30 days [gloves As directed] inhalational spacing device (Aerochamber MV spacer) As directed lactulose 20 grams (30 mL) PO DAILY PRN lidocaine 5% 1 appl topical TID PRN loratadine 10 mg PO DAILY PRN 90 days lubiprostone (Amitiza) 24 mcg PO BID mineral oil (Fleet Mineral Oil enema) 133 mL ME DAILY PRN mirtazapine 15 mg PO BEDTIME 90 days miscellaneous medical supply Power Lift Chair - As directed - to use indefinatly [Multipodus boots Please provide 1 pair] mupirocin 2% 1 appl topical TID [Nebulizer machine As directed] [Nebulizer machine As directed] oxycodone 15 mg PO BEDTIME PRN 14 days prednisone 20 mg PO DAILY 7 days prednisone mg PO sennosides (senna) 8.6 mg PO DAILY tramadol 50 mg PO BID PRN 30 days [Transport wheelchair As directed] walker (Ultra-Light Rollator misc) As directed [Walker with seat As directed] zolpidem 10 mg PO BEDTIME PRN 30 days Tobacco use date assessed: 05/04/25 Fall risk assessment: No Falls in past year Last assessed Fall Risk: 06/22/25 Dental Screening Dental Screen Date: 05/04/25 HPI Ulcers to Bilateral LE HPI Details Patient comes in today complaining again of breaking out in painful ulcers on both of her lower extremities over the past few days Her daughter states that the pain is so bad that she can hardly sleep at night lately and that her Tramadol does not even help at all when she takes it during the day States that she gets some relief at night with her Oxycodone but only for a few hours - at most 2 to 3 hours She was sent for arterial studies by podiatry last month and was reportedly advised that there were some positive findings and she was then referred to vascular surgery but they are upset about vascular surgery seeing her last week and supposedly told her that her test came back normal and that there was not deja for vascular surgery to do at this time The report from podiatry did state that they would like vascular surgery to help address patient's issue of arterial insufficiency but the report from vascular surgery indicated that the plan is for surgical excisional debridement after vascular workup and patient is presenting for vascular evaluation and clearance and they went on to say at the conclusion of her vascular surgery visit that patient is negative for any significant vascular disease and also negative for any significant venous insufficiency testing. She is stable from our perspective for any podiatric intervention inclusive of debridements and will just need to follow up with vascular surgery on an as-needed basis Patient denies any fevef, headaches or dizziness Denies any chest pains, no increased SOB No nausea/vomiting, no abdominal pain No change in bowel habits noted [facility] Medical History Peripheral vascular disease with pain at rest Leg ulcer, left Peripheral vascular disease Overweight (BMI 25.0-29.9) Bilateral primary osteoarthritis of knee Constipation Osteoporosis Allergic rhinitis Insomnia Osteoarthritis Obesity (BMI 30-39.9) Depression Anxiety Vitamin D deficiency GERD without esophagitis Asthma Paroxysmal atrial fibrillation Pure hypercholesterolemia Benign essential hypertension PAF (paroxysmal atrial fibrillation) Surgical History History of colonoscopy Family History Father CVD (cardiovascular disease) Stroke Mother Medical history unknown Brother Bone cancer Sister Cancer of mouth Social History Housing: Apartment Alcohol intake: never Patient Tobacco Use Status: Never used Tobacco Tobacco use type: Cigarette e-Cigarette/Vaping Use: Never Used Second Hand Smoke Exposure: Yes service: No Current occupational status: disabled Cognitive needs: No Hearing needs: No Vision needs: Yes (glasses) Questionnaire Thrive Questionnaire Date Thrive assessed: 01/21/25 I am a: Patient What is your living situation today?: I have a steady place to live Within the past 12 months, did the food you bought not last and you didn't have the money to get more?: Never true Within the past 12 months, did you worry whether your food would run out before you got money to buy more?: Never true Do you have trouble paying for medicines?: No Do you have trouble getting transportation to medical appointments?: No Do you have trouble paying your heating and electricity bill?: No Do you have trouble taking care of your child, family member or friend?: No Do you have trouble with day-to-day activities such as bathing, preparing meals, shopping, managing finances, etc.?: Yes Are you currently unemployed and looking for a job?: No Are you interested in more education?: No Please select the resources that you would like help with: None Currently or been in a relationship where the following occur: No concerns reported THRIVE Score: 0 FARIDEH-7 AMB Questionnaire FARIDEH-7 Date FARIDEH - 7 assessed: 02/03/25 Source: Developed by Drs. Abisai Peñaloza, Celina Simeon, Ayad Briceno and colleagues, with an educational elif from [employer]. Review of Systems Const Denies chills, Reports fatigue, Denies fever(s), Denies headache(s) and Reports weight loss ENT Denies dysphagia, Denies dizziness, Denies otalgia, Denies headache(s), Denies neck pain, Denies odynophagia and Denies sore throat Card Denies chest pain, Denies palpitations and Denies dyspnea Resp Denies chest congestion, Denies cough and Denies dyspnea GI Denies abdominal pain, Reports constipation (at times), Denies dysphagia, Denies heartburn, Denies diarrhea, Denies nausea, Denies odynophagia and Denies vomiting Denies difficulty voiding, Denies nocturia, Denies dysuria and Reports urinary incontinence (mostly urge incontinence, especially at night) Musc Denies back pain, Reports arthralgias (involving multiple joints, especially in both knees) and Denies neck pain Skin/Breast Denies rash and Reports skin ulcer (recurrent multiple painful sores/ulcers on both distal lower legs & ankles) Neuro Denies dizziness and Denies headache(s) Endo Reports fatigue and Denies palpitations Physical exam (Primary Care) Vital Signs: Last Vital Signs Pulse 92 06/22/25 10:27 BP 140/82 H 06/22/25 10:27 Pulse Ox 96 06/22/25 10:27 Oxygen Delivery Method Room Air 06/22/25 10:27 BMI result Body Mass Index 33.1 Tobacco/Smoking Status: Tobacco use Status Tobacco use date assessed 05/04/25 06/22/25 10:32 Patient Tobacco Use Status Never used Tobacco 06/22/25 10:32 Tobacco use type Cigarette 06/22/25 10:32 e-Cigarette/Vaping Use Never Used 06/22/25 10:32 Thrive Assessment: Date of Thrive Assessment Date Thrive assessed 01/21/25 06/22/25 10:32 Currently or been in a relationship where the following occur: No concerns reported Const General: no acute distress and alert HENMT Throat: Yes posterior oropharynx normal and Yes tonsils normal Neck Neck: Yes supple and No lymphadenopathy Thyroid: Thyroid normal Resp Auscultation: clear to auscultation bilaterally, no rales and no wheezes Cardio Rate: regular rate Rhythm: regular rhythm Heart sounds: no murmurs GI Palpation (GI): Soft to palpation and nontender Auscultation: normal bowel sounds General: Yes no CVA tenderness Back/Spine/Pelvis Back: no CVA tenderness Thoracic/Lumbar Spine: No lumbar spinal tenderness Skin Other: (+) multiple, tender, non-draining ulcers/sores over both lower legs and around both ankles, with scattered patchy discoloration noted over both lower legs as well. 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 Benign essential hypertension I10 Paroxysmal atrial fibrillation I48.0 Moderate persistent asthma without complication J45.40 Asthma severity: moderate Asthma persistence: persistent Asthma complication type: uncomplicated Seasonal allergic rhinitis due to pollen J30.1 Allergic rhinitis trigger: pollen Allergic rhinitis seasonality: seasonal GERD without esophagitis K21.9 Osteoporosis without current pathological fracture, unspecified osteoporosis type M81.0 Osteoporosis type: unspecified Presence of current pathological fracture: without current pathological fracture Primary osteoarthritis involving multiple joints M89.49 Insomnia, unspecified type G47.00 Insomnia type: unspecified Anxiety F41.9 Episode of recurrent major depressive disorder, unspecified depression episode severity F33.9 Depression Type: major depressive disorder Major depression recurrence: recurrent Active/Remission status: currently active Major depression episode severity: unspecified Overweight (BMI 25.0-29.9) E66.3 Assessment & Plan Assessment & Plan (1) Vasculitic leg ulcer: Code(s): 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 - Non-pressure chronic ulcer of unspecified part of unspecified lower leg with unspecified severity Category: Medical Plan: Over both lower extremities - recurrent over the past few years Patient was sent for arterial studies by podiatry last month and was reportedly advised that there were some findings of arterial insufficiency on her test and she was then referred to vascular surgery but vascular surgery supposedly told her that her test came back normal and that there was nothing for vascular surgery to do at this time Of note, patient has been seen and evaluated by dermatology, vascular surgery, neurology and rheumatology extensively for these over the past couple of years and they have ruled out dermatologic, neuropathic, vascular and rheumatologic etiologies for her recurrent ulcers - tests have all come back unrevealing so far They are requesting for a referral again for a second opinion and are willing to even go to [place] if they have to Will try referring her first to [facility] in [place] for further evaluation We will also start her empirically again on Doxycycline 100 mg BID x 7 days and Prednisone 20 mg QD x 7 days She is advised to continue on her current pain medication regimen for now - Tramadol PRN during the day and Oxycodone 15 mg at bedtime (2) Benign essential hypertension: Code(s): I10 - Essential (primary) hypertension Category: Medical Plan: Reinforced low-sodium diet - goal is systolic BP of at least 140 mm or less Continue Candesartan 32 mg QD; HCTZ was previously discontinued (3) Paroxysmal atrial fibrillation: Code(s): I48.0 - Paroxysmal atrial fibrillation Category: Medical Plan: Patient currently remains in sinus rhythm and is asymptomatic from a cardiac standpoint Echocardiogram done in November 2024 came out normal Follow up with cardiology as scheduled (4) Asthma: Code(s): J45.909 - Unspecified asthma, uncomplicated Category: Medical Qualifiers: Asthma severity: moderate Asthma persistence: persistent Asthma complication type: uncomplicated Qualified Code(s): J45.40 - Moderate persistent asthma, uncomplicated Plan: Controlled - continue Advair HFA 115-21 mcg 2 inhalations BID and Albuterol HFA 1 to 2 inhalations Q 6 hours PRN States that she uses her nebulizer only when needed (5) Allergic rhinitis: Code(s): J30.9 - Allergic rhinitis, unspecified Category: Medical Qualifiers: Allergic rhinitis trigger: pollen Allergic rhinitis seasonality: seasonal Qualified Code(s): J30.1 - Allergic rhinitis due to pollen Plan: Continue Loratadine 10 mg QD PRN (6) GERD without esophagitis: Code(s): K21.9 - Gastro-esophageal reflux disease without esophagitis Category: Medical Plan: Dietary restrictions reinforced Continue Omeprazole 40 mg QD PRN (7) Osteoporosis: Comment: DEXA 04/2024: AP Spine -1.4, Left femur neck -3.2, Left femur total -3.1 Code(s): M81.0 - Age-related osteoporosis without current pathological fracture Category: Medical Qualifiers: Osteoporosis type: unspecified Presence of current pathological fracture: without current pathological fracture Qualified Code(s): M81.0 - Age- related osteoporosis without current pathological fracture Plan: Repeat BMD done in July 2022 revealed that patient's BMD has declined significantly from her previous scan in July 2017, especially in the left femur, which declined by 23.2% from previous Her A/P spine BMD is mostly unchanged and her lowest T-score is now at -3.2 in the femoral neck S/P Tx with Alendronate - Rx has been discontinued recently Patient has been on Alendronate 70 mg Q week for years (unclear when she actually started taking it but most likely > 5 years) and we have instructed pat ient earlier this year to just finish up her current supply of Alendronate, then D/C the Rx We will also consider having her see endocrinology for her osteoporosis once her current issues with her lower extremity ulcers are under better control (8) Primary osteoarthritis involving multiple joints: Code(s): M89.49 - Other hypertrophic osteoarthropathy, multiple sites Category: Medical Plan: Mostly involving her right knee - she has received cortisone injection from orthopedics in the past without any significant relief Have advised her again that physical therapy can help with her knee pain if her symptoms get worse -? patient does not want to pursue this for now, especially with her ongoing recurrent painful ulcers Continue Tramadol 50 mg TID PRN; her Pregabalin 225 mg BID was discontinued due to complaints of increased tremors while she was on the medication Follow-up with Orthopedics as scheduled or as needed (9) Insomnia: Code(s): G47.00 - Insomnia, unspecified Category: Medical Qualifiers: Insomnia type: unspecified Qualified Code(s): G47.00 - Insomnia, unspecified Plan: Sleep hygiene reinforced Continue Zolpidem 10 mg Q HS PRN (10) Anxiety: Code(s): F41.9 - Anxiety disorder, unspecified Category: Medical Plan: Continue Lorazepam 0.5 mg 2 to 3 times a day as needed Mirtazapine also appears to be helping (11) Depression: Code(s): F32.9 - Major depressive disorder, single episode, unspecified Category: Medical Qualifiers: Depression Type: major depressive disorder Major depression recurrence: recurrent Active/Remission status: currently active Major depression episode severity: unspecified Qualified Code(s): F33.9 - Major depressive disorder, recurrent, unspecified Plan: Continue Mirtazapine 15 mg Q HS (12) Overweight (BMI 25.0-29.9): Code(s): E66.3 - Overweight Category: Medical Plan: Reinforced diet; exercise and weight loss are unrealistic given patient's current ongoing issues and multiple tea Plan Follow up as scheduled in August 2025 Orders: Referrals Vascular Surgery Referral I73.9 - Peripheral vascular disease, unspecified, L97.909 - Non-pressure chronic ulcer of unspecified part of unspecified lower leg with unspecified severity Medications: New prednisone 20 mg PO DAILY 7 tabs 0RF 7 days doxycycline hyclate 100 mg PO BID 14 caps 0RF 7 days Refilled lidocaine 5% 1 appl topical TID PRN 50 grams 5RF pain
== END 2025-06-22 11:20 | disposition home or self-care (01) ==
LOC: HO.HMCH 10:12
PROVIDERS: PCP Internal Medicine; Visit Provider Internal Medicine
DX: L97.909 Non-pressure chronic ulcer of unspecified part of unspecified lower leg with unspecified severity (principal); I10 Essential (primary) hypertension; I48.0 Paroxysmal atrial fibrillation; J45.40 Moderate persistent asthma, uncomplicated; J30.1 Allergic rhinitis due to pollen; K21.9 Gastro-esophageal reflux disease without esophagitis; M81.0 Age-related osteoporosis without current pathological fracture; M89.49 Other hypertrophic osteoarthropathy, multiple sites; G47.00 Insomnia, unspecified; F41.9 Anxiety disorder, unspecified; F33.9 Major depressive disorder, recurrent, unspecified; E66.3 Overweight

== ENCOUNTER 2025-06-22 18:08 | Emergency (ER) | payer OTHER, SELFPAY ==
--- NOTE | ~2025-06-22 | XR_ITS ---
CLINICAL HISTORY: osteo? non healing ulcers 6 view bilateral feet Comparison: None provided Findings: No acute fracture. No dislocation. Hallux valgus [id number]-[id number]-[id number]-left. Bilateral calcaneal enthesophytes. No erosions or bone destruction. No ankle joint effusion. Atherosclerotic vascular disease. IMPRESSION: 1. No radiographic evidence of acute osteomyelitis in bilateral feet. If clinically indicated MRI could be obtained. 2. Iaavq-qyxofuu-zttr-left hallux valgus. This document has been electronically signed by: Lynn Bentley MD on 06/22/2025 19:57:33
--- NOTE | ~2025-06-22 | XR_ITS ---
CLINICAL HISTORY: non healing ulcers weeping. osteo? 2 view bilateral tibia-fibula Comparison: None provided Findings No fractures or dislocations. No joint effusion. No significant arthritic change. No bone destruction. IMPRESSION: 1. No acute findings in bilateral tibia-fibula This document has been electronically signed by: Lynn Bentley MD on 06/22/2025 20:31:14
[2025-06-22 18:11] VITALS: BP 152/100; PULSE 91; O2SAT 18
[2025-06-22 19:03] VITALS: BP 155/90; PULSE 88; RESP 20; TEMP 36.9; O2SAT 95; BMI 33.1
--- NOTE | 2025-06-22 19:10 | ED.GENADULT ---
HPI - General Adult General Chief complaint: Wound/Laceration Stated complaint: Ulcers on bottom of feet 04/23 pain Time Seen by Provider: 06/22/25 22:48 History of Present Illness ED Provider: Caroline Vences NP HPI narrative: 79-year-old female medical history significant for peripheral vascular disease with baseline bilateral lower leg pain, peripheral arterial disease, recurrent ulcers of the lower extremities, peripheral neuropathy, vasculitic leg ulcers, primary osteoarthritis of the knees, leg swelling, varicose veins, osteoporosis, chronic venous stasis ulcers of both lower extremities, MGUS, depression, anxiety, GERD, asthma, paroxysmal atrial fibrillation not on anticoagulants, hypertension, hyperlipidemia presents to the ED via EMS complaining of severe lower leg pain bilaterally. Patient reports that the left heel feels worse in the right heel. The wounds open and close intermittently, but the pain is more persistent recently. She has also had some nausea over the course of 4 days, and an episode of vomiting this morning. She believes that due to the pain she has had poor appetite. She denies any chest pain or pressure, shortness of breath, abdominal pain. No fever, chills, recent illnesses. She did not have her dose of pain medication today. Related Data Home Medications ?Medication ?Instructions ?Recorded ?Confirmed calcium 600 mg (as carbonate)-vit 1 tab PO DAILY 09/26/22 06/22/25 D3 5 mcg (200 unit)-minerals tablet prednisone 10 mg tablet mg PO 05/20/25 06/22/25 Previous Rx's ?Medication ?Instructions ?Recorded inhalational spacing device #1 ea 04/07/21 (Aerochamber MV spacer) fluticasone propionate 110 2 puff inhalation BID 30 days #12 10/31/22 mcg/actuation HFA aerosol inhaler grams (Flovent HFA) disposable bed pads #1 ea 10/01/23 gloves #1 ea 10/01/23 loratadine 10 mg tablet 10 mg PO DAILY PRN allergy 03/22/24 symptoms 90 days #90 tabs albuterol sulfate 2.5 mg/3 mL 2.5 mg (3 mL) continuous 06/23/24 (0.083 %) solution for nebulization nebulization QID PRN shortness of breath or wheezing #90 mL Nebulizer machine #1 ea 08/07/24 Nebulizer machine #1 ea 08/12/24 cholecalciferol (vitamin D3) 25 25 mcg PO DAILY 90 days #90 caps 10/11/24 mcg (1,000 unit) capsule Walker with seat #1 ea 11/16/24 lactulose 20 gram/30 mL oral 20 g (30 mL) PO DAILY PRN 12/15/24 solution constipation #420 mL mineral oil (Fleet Mineral Oil 133 ml DE DAILY PRN constipation 12/15/24 enema) #266 mL mupirocin 2 % topical ointment 1 appl topical TID lower extremity 12/15/24 ulcers #50 grams acetaminophen 650 mg 650 mg PO Q8H PRN pain 30 days #90 01/08/25 tablet,extended release tabs alclometasone 0.05 % topical cream 0.05 appl topical DAILY #45 grams 01/08/25 Advair HFA 115 mcg-21 2 puff inhalation BID #12 grams 01/10/25 mcg/actuation aerosol inhaler (fluticasone propion-salmeterol) candesartan 32 mg tablet 32 mg PO DAILY #90 tabs 01/12/25 atorvastatin 80 mg tablet 80 mg PO BEDTIME 90 days #90 tabs 01/20/25 sennosides 8.6 mg tablet (senna) 8.6 mg PO DAILY #90 tabs 01/26/25 walker (Ultra-Light Rollator misc) #1 ea 02/03/25 miscellaneous medical supply #1 ea 02/10/25 mirtazapine 15 mg tablet 15 mg PO BEDTIME 90 days #90 tabs 05/03/25 Transport wheelchair #1 ea 05/05/25 Multipodus boots #2 ea 05/20/25 amitriptyline 10 mg tablet 20 mg (2 x 10 mg) PO BEDTIME 90 05/28/25 days #180 tabs lubiprostone 24 mcg capsule 24 mcg PO BID #60 caps 05/30/25 (Amitiza) tramadol 50 mg tablet 50 mg PO BID PRN pain 30 days #60 06/03/25 tabs zolpidem 10 mg tablet 10 mg PO BEDTIME PRN sleep 30 days 06/04/25 #30 tabs oxycodone 15 mg tablet 15 mg PO BEDTIME PRN severe pain 06/14/25 14 days #14 tabs doxycycline hyclate 100 mg capsule 100 mg PO BID 7 days #14 caps 06/22/25 lidocaine 5 % topical ointment 1 appl topical TID PRN pain #50 06/22/25 grams prednisone 20 mg tablet 20 mg PO DAILY 7 days #7 tabs 06/22/25 Allergies Allergy/AdvReac Type Severity Reaction Status Date / Time Penicillins Allergy Intermediate Hives Verified 06/22/25 19:08 oxaprozin (From Daypro) Allergy Unknown RASH Verified 06/22/25 19:08 hydroxychloroquine AdvReac Intermediate Abdominal Verified 06/22/25 19:08 Pain budesonide (Symbicort) AdvReac Unknown nausea and Verified 06/22/25 19:08 vomiting Review of Systems Review of Systems: ROS is otherwise negative unless mentioned in HPI. FORMERLY [facility], [facility] Past Medical History Medical History Peripheral vascular disease with pain at rest Leg ulcer, left Peripheral vascular disease Overweight (BMI 25.0-29.9) Bilateral primary osteoarthritis of knee Constipation Osteoporosis Allergic rhinitis Insomnia Osteoarthritis Obesity (BMI 30-39.9) Depression Anxiety Vitamin D deficiency GERD without esophagitis Asthma Paroxysmal atrial fibrillation Pure hypercholesterolemia Benign essential hypertension PAF (paroxysmal atrial fibrillation) Surgical History History of colonoscopy Family History Family History Father CVD (cardiovascular disease) Stroke Mother Medical history unknown Brother Bone cancer Sister Cancer of mouth Social History Social History Housing: Apartment Alcohol intake: never Patient Tobacco Use Status: Never used Tobacco Tobacco use type: Cigarette e-Cigarette/Vaping Use: Never Used Second Hand Smoke Exposure: Yes service: No Current occupational status: disabled Cognitive needs: No Hearing needs: No Vision needs: Yes (glasses) Physical Exam ED Exam Exam: Nursing notes and vital signs reviewed. Constitutional: Well-appearing, NAD. Alert. Oriented X3. Eyes: EOMI. ENT: Pharynx normal. Neck: Normal inspection. Neck supple. CVS: Normal heart rate and rhythm. Pulses normal. Respiratory: No respiratory distress. Breath sounds normal. Abdomen: Soft and nontender, nondistended. No CVA tenderness bilaterally. Skin: Skin warm and dry. Normal skin color. Ulcerations that appear chronic to the lower legs. See photo. Extremities: No lower extremity edema. Neuro: Oriented X 3. No motor deficit. Vital Signs: Vital Signs - 24 hr 06/22/25 19:03 06/22/25 20:26 06/22/25 22:22 Temperature 98.4 F 100.3 F 97.8 F Pulse Rate 88 92 98 Respiratory Rate 20 16 18 Blood Pressure 155/90 H 151/87 H 163/77 H Pulse Oximetry 95 92 94 Oxygen Delivery Method Room Air Room Air Room Air 06/23/25 04:20 Temperature 97.8 F Pulse Rate 86 Respiratory Rate 16 Blood Pressure 142/85 H Pulse Oximetry 96 Oxygen Delivery Method Room Air BMI result Body Mass Index 33.1 Course Course Course Narrative: RME: 79-year-old female presents to bilateral nonhealing ulcers that is weeping and tender on palpation. Patient's has seen multiple vascular surgeon who states that is no intervention needed. Labs x-ray ordered Medications Administered Discontinued Medications Generic Name Dose Route Start Last Admin Trade Name Ariella PRN Reason Stop Dose Admin Acetaminophen 650 mg 06/22/25 22:24 06/22/25 22:27 Acetaminophen 325 Mg Tablet PO 06/22/25 22:25 650 mg ONCE ONE Administration Dextrose 25 gm 06/22/25 23:07 06/22/25 23:59 Dextrose 50 % 25 Gm/50 Ml Syringe IVPUSH 06/22/25 23:08 25 gm ONCE ONE Administration Hydromorphone HCl 1 mg 06/22/25 23:11 06/23/25 00:03 Hydromorphone Hcl 1 Mg/Ml Syringe IVPUSH 06/22/25 23:12 1 mg ONCE ONE Administration Protocol Calcium Gluconate 1 gm in 50 mls @ 50 mls/hr 06/22/25 23:07 06/23/25 01:10 Calcium Gluconate IV 06/23/25 00:06 Infused ONCE ONE Infusion Insulin Human Regular 5 unit 06/22/25 23:07 06/22/25 23:59 Insulin Regular, Human 100 Unit/Ml 10 Ml Vial IVPUSH 06/22/25 23:08 5 unit ONCE ONE Administration Oxycodone HCl 15 mg 06/23/25 01:23 06/23/25 01:38 Oxycodone Hcl Immed Release 15 Mg Tablet PO 06/23/25 01:24 15 mg ONCE ONE Administration Medical Decision Making Medical Decision Making [facility] Narrative: 12:25 AM 06/23/2025 (Caroline Vences NP): Upon my initial assessment of this patient, I was reviewing her lab work that was done by the triage provider as well as outpatient laboratory studies and visits. She presents today with complaints of lower leg pain that has progressively worsened, as well as nausea thought to be due to pain. She denies any active abdominal pain, epigastric discomfort, or poor p.o. intake, weight loss that was reported in the triage note. Her primary complaint is the leg pain. In her visit today, she was noted to have a potassium level that was elevated at 5.8. She has associated EKG changes with T-wave inversions in V1, 2, 3. Therefore, we will treat the patient's hyperkalemia with calcium, insulin and dextrose and reassess her level after treatment. I had also added on a cardiac enzyme, which has returned normal. The repeat is also flat. She had bilateral tib-fib, foot x-rays which revealed no acute bony abnormalities. She has chronic lower extremity pain bilaterally, and is known to have peripheral vascular disease including arterial and venous insufficiency. She typically takes oxycodone at home, for her pain here given she missed her dose I did give her a dose of 1 mg IV push Dilaudid with good effect. The urinalysis showed no signs of infection. Upon review of the chart, the patient was seen by vascular surgery on 06/15/2025, and in short the patient was not noted to have any significant vascular disease. They reported that she had palpable pulses and arterial testing that was within normal limits, and in addition was negative for significant venous insufficiency testing. She is considered stable from a vascular perspective, and was recommended to return to Podiatry for possible intervention for any inclusive debridements. Her daughter tells me that she has an appointment with podiatry tomorrow. Plan as of now is to reverse the potassium and reassess potassium level prior to discharge home with outpatient follow up tomorrow. 2:25 AM 06/23/2025 (Valerie RYAN): Patient is signed out to this provider at shift change pending repeat potassium level. The patient's repeat potassium is increased to 6. However there is a note from the laboratory that this is a slightly hemolyzed sample, recommendation for discretion regarding result. Patient will be treated with the albuterol for additional hyperkalemia treatment, and we will repeat BMP. 3:41 AM 06/23/2025 (Valerie RYAN): Repeat BMP shows potassium 5.6, improved from previous. The patient is requesting discharge home, we will discharge. Differential Diagnosis Differential Diagnoses: The differential diagnosis associated with the presentation includes Osteomyelitis, PAD, PVD, cellulitis Admission/Observation Consideration of admission/observation: Escalation of care including admission/observation considered (Not indicated) Lab Data MDM Lab Attestation statement: I reviewed the patient's lab results. Overall reassuring, hyperkalemia, pending repeat potassium. 06/22/25 20:16 06/23/25 02:50 Labs: Lab Results 06/22/25 06/22/25 06/23/25 Range/Units 20:16 23:51 01:26 WBC 10.1 (4.8-10.8) X10*3/uL RBC 4.89 (4.20-5.50) X10*6/uL Hgb 13.5 (12.0-16.0) g/dl Hct 43.1 (37.0-47.0) % MCV 88.1 (80.0-98.0) fL MCH 27.6 (27.0-33.0) pg MCHC 31.3 (31.0-35.0) g/dl RDW 14.5 (11.0-16.0) % Plt Count 288 (160-400) X10*3/uL MPV 10.7 (9.4-12.3) fL Immature Gran % (Auto) 0.3 (0.0-0.4) % Neut % (Auto) 93.2 H (45-73) % Lymph % (Auto) 4.8 L (20-40) % [place] % (Auto) 1.4 L (2-11) % Eos % (Auto) 0.0 (0-4) % Baso % (Auto) 0.3 (0-2) % Lymph # (Auto) 0.5 L (1.2-4.9) X10*3/uL [place] # (Auto) 0.1 (0.1-1.2) X10*3/uL Eos # (Auto) 0.0 (0.0-0.4) X10*3/uL Baso # (Auto) 0.0 (0.0-0.2) X10*3/uL Abs Immat Gran (auto) 0.03 (0.00-0.03) X10*3/uL Absolute Neuts (auto) 9.4 H (2.0-8.3) x10*3/uL Absolute Nucleated RBC 0.000 (0.0-0.012) X10*3/uL Nucleated RBC % (auto) 0.0 (0.0-0.2) /100WBC Smear Tech's Comments VERIFIED ESR 35 H (0-20) MM/HR Sodium 138 (135-145) mmol/L Potassium 5.8 H D 6.0 H* (3.3-5.1) mmol/L Chloride 101 (96-108) mmol/L Carbon Dioxide 28 (22-29) mmol/L Anion Gap 15 (12-20) BUN 26 H (9-16) mg/dL Creatinine 1.10 (0.5-1.4) mg/dL Estim Creat Clear Calc 39.5 Estimated GFR 48 Random Glucose 142 H (60-115) mg/dL Calcium 9.8 D (8.4-10.2) mg/dL Magnesium 2.2 (1.6-2.6) mg/dL Total Bilirubin 0.5 (0.0-1.0) mg/dL AST 36 H (5-31) U/L ALT 20 (0-31) U/L Alkaline Phosphatase 107 (39-117) U/L Troponin I High Sens 3.8 4.1 (<3.5-17.0) ng/L C-Reactive Protein 2.77 H (< or = 0.50) mg/dL Total Protein 7.8 (6.5-8.0) g/dL Albumin 4.7 (3.5-5.0) g/dL Urine Color Yellow Urine Appearance Clear Urine pH 7.5 (5.0-9.0) Ur Specific [place] 1.020 (1.005-1.025) Urine Protein Trace (Neg-Trace) mg/dL Urine Glucose (UA) Negative (Negative) mg/dL Urine Ketones 15 (Negative) mg/dL Urine Blood Trace H (Negative) Urine Nitrite Negative (Negative) Ur Leukocyte Esterase Moderate (2+) H (Negative) Urine RBC 6-10 H (0-2) /HPF Urine WBC 0-5 (0-5) /HPF Ur Squamous Epith Cells 0-2 (0-2) /HPF Urine Bacteria None Seen (None Seen) Hyaline Casts 0-2 (0-2) /LPF 12/10/25 Range/Units 02:50 WBC (4.8-10.8) X10*3/uL RBC (4.20-5.50) X10*6/uL Hgb (12.0-16.0) g/dl Hct (37.0-47.0) % MCV (80.0-98.0) fL MCH (27.0-33.0) pg MCHC (31.0-35.0) g/dl RDW (11.0-16.0) % Plt Count (160-400) X10*3/uL MPV (9.4-12.3) fL Immature Gran % (Auto) (0.0-0.4) % Neut % (Auto) (45-73) % Lymph % (Auto) (20-40) % [place] % (Auto) (2-11) % Eos % (Auto) (0-4) % Baso % (Auto) (0-2) % Lymph # (Auto) (1.2-4.9) X10*3/uL [place] # (Auto) (0.1-1.2) X10*3/uL Eos # (Auto) (0.0-0.4) X10*3/uL Baso # (Auto) (0.0-0.2) X10*3/uL Abs Immat Gran (auto) (0.00-0.03) X10*3/uL Absolute Neuts (auto) (2.0-8.3) x10*3/uL Absolute Nucleated RBC (0.0-0.012) X10*3/uL Nucleated RBC % (auto) (0.0-0.2) /100WBC Smear Tech's Comments ESR (0-20) MM/HR Sodium 140 (135-145) mmol/L Potassium 5.6 H (3.3-5.1) mmol/L Chloride 100 (96-108) mmol/L Carbon Dioxide 30 H (22-29) mmol/L Anion Gap 16 (12-20) BUN 26 H (9-16) mg/dL Creatinine 1.18 (0.5-1.4) mg/dL Estim Creat Clear Calc 36.8 Estimated GFR 44 Random Glucose 96 (60-115) mg/dL Calcium 10.3 H (8.4-10.2) mg/dL Magnesium (1.6-2.6) mg/dL Total Bilirubin (0.0-1.0) mg/dL AST (5-31) U/L ALT (0-31) U/L Alkaline Phosphatase (39-117) U/L Troponin I High Sens (<3.5-17.0) ng/L C-Reactive Protein (< or = 0.50) mg/dL Total Protein (6.5-8.0) g/dL Albumin (3.5-5.0) g/dL Urine Color Urine Appearance Urine pH (5.0-9.0) Ur Specific [place] (1.005-1.025) Urine Protein (Neg-Trace) mg/dL Urine Glucose (UA) (Negative) mg/dL Urine Ketones (Negative) mg/dL Urine Blood (Negative) Urine Nitrite (Negative) Ur Leukocyte Esterase (Negative) Urine RBC (0-2) /HPF Urine WBC (0-5) /HPF Ur Squamous Epith Cells (0-2) /HPF Urine Bacteria (None Seen) Hyaline Casts (0-2) /LPF Independent Interpretation I performed an independent interpretation of an: EKG Interpretation: Rate: 93 Rhythm: NSR [place]: 93/43/72 Normal P waves. Normal ROBERTO. Normal QRS complex. ST T wave : no dep, elev qTC: 447 prior studies: similar but also with new T wave inversions in V1,V2,V3 The study has been interpreted contemporaneously by me. Radiology Impression Discussion of test interpretation with radiology: I have reviewed the radiologist's reading. Radiologist Impression: IMPRESSION: 1. No acute findings in bilateral tibia-fibula. IMPRESSION: 1. No radiographic evidence of acute osteomyelitis in bilateral feet. If clinically indicated MRI could be obtained. 2. [id number]-left hallux valgus. Independent Historian Clinical information obtained from an independent historian. History obtained from or confirmed by: Other (Daughter) External Record Review External record reviewed: Office record, Outpatient record, Prior outpatient labs, Prior outpatient radiology, Primary care record and Outside ED record Chronic Conditions Patient?s care impacted by: Diabetes, Hypertension and Other (PAD, PVD) Social Determinants Patient?s care significantly limited by Social Determinants of Health including: Problems related to primary support group Discharge Plan Discharge Clinical Impression: Acute hyperkalemia, Chronic pain of lower extremity, bilateral Patient Disposition: Home, Self-Care Instructions: Chronic Pain (ED) Additional Instructions: As we discussed, you were seen in the ER with a for evaluation of leg pain. Your lab work today was overall reassuring. However, you had an elevated potassium level, called hyperkalemia. We gave you medications to reverse this with good effect. Additionally, your urine sample showed leukocytes but no signs of infection. If you develop any abnormal urinary complaints, please seek re-evaluation. The x-rays of your tibia and fibula, as well as foot show no acute abnormalities. We gave you your nighttime dose of oxycodone in the ER. Please follow up tomorrow with your antique refinisher at your prescheduled appointment. With any worsening complaints, please seek re-evaluation in the ED. Prescriptions: No Action (DME) gloves Large See Rx Instructions .Route .MEDSUPPLY Qty: 1 0RF Rx Instructions: As directed (DME) disposable bed pads See Rx Instructions .Route .MEDSUPPLY Qty: 1 0RF Rx Instructions: As directed 4 per day loratadine 10 mg tablet 10 mg PO DAILY PRN (Reason: allergy symptoms) 90 Days Qty: 90 1RF albuterol sulfate 2.5 mg /3 mL (0.083 %) solution for nebulization 2.5 mg continuous nebulization QID PRN (Reason: shortness of breath or wheezing) Qty: 90 0RF (DME) Nebulizer machine See Rx Instructions .Route .MEDSUPPLY Qty: 1 0RF Rx Instructions: As directed (DME) Nebulizer machine See Rx Instructions .Route .MEDSUPPLY Qty: 1 0RF Rx Instructions: As directed cholecalciferol (vitamin D3) 25 mcg (1,000 unit) capsule 25 mcg PO DAILY 90 Days Qty: 90 3RF (DME) Walker with seat See Rx Instructions .Route .MEDSUPPLY Qty: 1 0RF Rx Instructions: As directed mupirocin 2 % ointment 1 appl topical TID Qty: 50 2RF acetaminophen 650 mg tablet extended release 650 mg PO Q8H PRN (Reason: pain) 30 Days Qty: 90 3RF alclometasone 0.05 % cream 0.05 appl topical DAILY Qty: 45 0RF fluticasone propion-salmeterol [Advair HFA] 115-21 mcg/actuation HFA aerosol inhaler 2 puff inhalation BID Qty: 12 3RF Rx Instructions: administer with spacer candesartan 32 mg tablet 32 mg PO DAILY Qty: 90 1RF atorvastatin 80 mg tablet 80 mg PO BEDTIME 90 Days Qty: 90 1RF sennosides [senna] 8.6 mg tablet 8.6 mg PO DAILY Qty: 90 4RF (DME) miscellaneous medical supply Misc 0 .Route Qty: 1 0RF Rx Instructions: Power Lift Chair - As directed - to use indefinatly mirtazapine 15 mg tablet 15 mg PO BEDTIME 90 Days Qty: 90 0RF (DME) Transport wheelchair See Rx Instructions .Route .MEDSUPPLY Qty: 1 0RF Rx Instructions: As directed amitriptyline 10 mg tablet 20 mg PO BEDTIME 90 Days Qty: 180 1RF lubiprostone [Amitiza] 24 mcg capsule 24 mcg PO BID Qty: 60 1RF tramadol 50 mg tablet 50 mg PO BID PRN (Reason: pain) 30 Days Qty: 60 0RF zolpidem 10 mg tablet 10 mg PO BEDTIME PRN (Reason: sleep) 30 Days Qty: 30 2RF oxycodone 15 mg tablet 15 mg PO BEDTIME PRN (Reason: severe pain) 14 Days Qty: 14 0RF Rx Instructions: Partial Fill upon patient request. calcium carbonate-vit D3-min 600 mg calcium- 200 unit tablet 1 tab PO DAILY (DME) Aerochamber MV Spacer See Rx Instructions .Route Qty: 1 0RF Rx Instructions: As directed fluticasone propionate [Flovent HFA] 110 mcg/actuation HFA aerosol inhaler 2 puff inhalation BID 30 Days Qty: 12 5RF lactulose 20 gram/30 mL solution 20 g PO DAILY PRN (Reason: constipation) Qty: 420 0RF mineral oil [Fleet Mineral Oil] Enema 133 ml DE DAILY PRN (Reason: constipation) Qty: 266 0RF Rx Instructions: discard any unused portion prednisone 10 mg tablet PO (DME) Multipodus boots See Rx Instructions .Route .MEDSUPPLY Qty: 2 0RF Rx Instructions: Please provide 1 pair (DME) Ultra-Light Rollator Misc See Rx Instructions .Route Qty: 1 0RF Rx Instructions: As directed doxycycline hyclate 100 mg capsule 100 mg PO BID 7 Days Qty: 14 0RF prednisone 20 mg tablet 20 mg PO DAILY 7 Days Qty: 7 0RF lidocaine 5 % ointment 1 appl topical TID PRN (Reason: pain) Qty: 50 5RF Referrals: Milton Ackerman MD [Primary Care Provider, Internal Medicine] Interventions: ED Discharge Assessment Last Done: 06/23/25 04:20 Discharge Date/Time: 06/23/25 04:20 Print Language: Dominican
[2025-06-22 20:23] LABS: Hematocrit 43.1 % (37.0-47.0); Hemoglobin 13.5 g/dl (12.0-16.0); Imm Gran Abs Auto 0.03 X10*3/uL (0.00-0.03); Imm Gran Pct Auto 0.3 % (0.0-0.4); Lymphocytes Absolute Auto 0.5 X10*3/uL (1.2-4.9); MANUAL DIFF FLAG SCAN; Mean Corpuscular HGB Conc 31.3 g/dl (31.0-35.0); Mean Corpuscular Hemoglobin 27.6 pg (27.0-33.0); Mean Corpuscular Volume 88.1 fL (80.0-98.0); NRBC Abs Auto 0.000 X10*3/uL (0.0-0.012); NRBC Pct Auto 0.0 /100WBC (0.0-0.2); Platelet Count 288 X10*3/uL (160-400); Red Blood Count 4.89 X10*6/uL (4.20-5.50); SCAN SMEAR FLAG 1; White Blood Count 10.1 X10*3/uL (4.8-10.8)
[2025-06-22 20:26] VITALS: BP 151/87; PULSE 92; RESP 16; TEMP 37.9; O2SAT 92
[2025-06-22 20:37] LABS: Alanine Aminotransferase 20 U/L (0-31); Albumin Level 4.7 g/dL (3.5-5.0); Alkaline Phosphatase 107 U/L (39-117); Anion Gap 15 (12-20); Aspartate Amino Transferase 36 U/L (5-31); Blood Urea Nitrogen 26 mg/dL (9-16); Calcium 9.8 mg/dL (8.4-10.2); Carbon Dioxide 28 mmol/L (22-29); Chloride 101 mmol/L (96-108); Creatinine Clr Calc Pharmacy 39.5; Estimated Glomerular Filt Rate 48; Potassium 5.8 mmol/L (3.3-5.1); Sodium 138 mmol/L (135-145); Total Protein 7.8 g/dL (6.5-8.0)
[2025-06-22 21:47] LABS: Erythrocyte Sedimentation Rate 35 MM/HR (0-20)
[2025-06-22 22:22] VITALS: BP 163/77; PULSE 98; RESP 18; TEMP 36.6; O2SAT 94
--- NOTE | 2025-06-22 22:23 | ECG_ITS ---
Test Reason : HYPEKALEMIA Blood Pressure : */* mmHG Vent. Rate : 93 BPM Atrial Rate : 93 BPM P-R Int : 178 ms QRS Dur : 82 ms QT Int : 356 ms P-R-T Axes : 93 43 72 degrees QTcB Int : 442 ms Sinus rhythm with Premature supraventricular complexes ST & T wave abnormality, consider anterior ischemia Abnormal ECG When compared with ECG of 25-Feb-2025 16:00, Premature supraventricular complexes are now Present Referred By: Generic ED Physician Electronically Signed By: MANOJ BROWN MD
[2025-06-22 23:32] LABS: Troponin-I High Sensitivity 3.8 ng/L (<3.5-17.0)
--- OUTSIDE RECORDS SUMMARY | 2025-06-22 23:43 | XMS_ITS | Clinical Summary ---
Author Organization [facility] Address [address] [address] Phone Care Team Providers Care Assistant Maintenance Manager Name Role Phone Milton Ackerman MD Primary Care Provider [phone] Medications gabapentin (NEURONTIN) 100 MG capsule Take [...] topic Medical Devices Not on file [facility] REPLACEMENT [facility] MEDIC[facility] PART A & B [facility] MEDICARE [facility]PLACEMENT [facility] MEDICARE PART A & B [facility] MEDICARE REPLACEMENT [place] MEDICARE PART A & B [facility] MEDICARE REPLACEMENT [place] MEDICARE PART A & B [facility] MEDICARE REPLACEMENT [facility] MEDICARE PART A & B [facility] MEDICARE REPLACEMENT Care Teams Assistant Maintenance Manager Relationship Specialty Start Date End Date Milton Ackerman MD [address] [place] [address] Dr Cortes, [place] [address] PCP - General Internal Medicine 05/23/24 Additional Source Comments The information contained in this document represents components of the legal health record. It is not the complete legal health record.[facility]
--- OUTSIDE RECORDS SUMMARY | 2025-06-22 23:43 | XMS_ITS | Clinical Summary ---
Author Organization [employer] Address [address] [facility] [address] [place] [address] Care Team Providers Care Power Plant Manager Name Role Phone Unavailable Primary Care [...]
--- OUTSIDE RECORDS SUMMARY | 2025-06-22 23:43 | XMS_ITS | Clinical Summary ---
Author Organization [facility] Address [address] [place] [address] Care Team Providers Care Program Supervisor Name Role Phone Tyron Milton Primary Care Provider [phone] Allergies Active Allergy Reactions Criticality Noted Date [...] patient's age to complete this topic Insurance [facility] Care Teams Program Supervisor Relationship Specialty Start Date End Date Milton Ackerman [address] [place] [address] dr Iram Walden, [place] [address] PCP - General Internal Medicine 01/20/24
--- OUTSIDE RECORDS SUMMARY | 2025-06-22 23:43 | XMS_ITS | Clinical Summary ---
Author Organization [facility] Prior to 12/12/[address] [place] [address] Care Team Providers Care Chemistry Professor Name Role Phone Milton Ackerman MD Primary Care Provider [phone] Medications Medication Sig Dispensed Refills Start Date [...] age to complete this topic Care Teams Chemistry Professor Relationship Specialty Start Date End Date Milton Ackerman MD [address] [place] [address] [address] [place] [address] [place] [address] PCP - General Internal Medicine 02/18/23
[2025-06-23] MEDS: Calcium Gluconate/NaCl,Iso-Osm 1 GM/50 ML PLAST..BAG IV (00:04)
[2025-06-23 00:14] LABS: Appearance Urine Clear; Glucose Urine UA Negative (Negative); PH 7.5 (5.0-9.0); Specific Gravity - Urine 1.020 (1.005-1.025); UMIC TRIGGER UACC YES
[2025-06-23 00:17] LABS: Troponin-I High Sensitivity 4.1 ng/L (<3.5-17.0)
[2025-06-23 00:18] LABS: UACC Culture Trigger YES
--- NOTE | 2025-06-23 00:46 | PC.NURSE ---
This medical underwriter assumed care of this Pt at 2300. Pt A&Ox3, reports 04/23 to bilateral heal wounds, reports they are chronic and Tonight pain worsened. Scabs noted, no drainage. Pt reports she is limited with ambulating due to pain. Denies any new injuries.
[2025-06-23 00:52] LABS: Magnesium 2.2 mg/dL (1.6-2.6)
[2025-06-23] MEDS: oxyCODONE HCl Immed Release 15 MG TABLET PO (01:38)
[2025-06-23 02:05] LABS: Potassium 6.0 mmol/L (3.3-5.1)
[2025-06-23 03:07] LABS: Anion Gap 16 (12-20); Blood Urea Nitrogen 26 mg/dL (9-16); Calcium 10.3 mg/dL (8.4-10.2); Carbon Dioxide 30 mmol/L (22-29); Chloride 100 mmol/L (96-108); Creatinine Clr Calc Pharmacy 36.8; Estimated Glomerular Filt Rate 44; Potassium 5.6 mmol/L (3.3-5.1); Sodium 140 mmol/L (135-145)
[2025-06-23 04:20] VITALS: BP 142/85; PULSE 86; RESP 16; TEMP 36.6; O2SAT 96
== END 2025-06-23 04:20 | disposition home or self-care (01) ==
PROVIDERS: Nurse Practitioner; Physician Assistant; Emergency Provider Emergency Medicine; PCP Internal Medicine
DX: E87.5 Hyperkalemia (principal); M79.604 Pain in right leg; M79.605 Pain in left leg; G89.29 Other chronic pain; R60.0 Localized edema; R82.90 Unspecified abnormal findings in urine; I48.0 Paroxysmal atrial fibrillation; J45.40 Moderate persistent asthma, uncomplicated; J30.1 Allergic rhinitis due to pollen; K21.9 Gastro-esophageal reflux disease without esophagitis; M81.0 Age-related osteoporosis without current pathological fracture; M89.49 Other hypertrophic osteoarthropathy, multiple sites; G47.00 Insomnia, unspecified; F41.9 Anxiety disorder, unspecified; F33.9 Major depressive disorder, recurrent, unspecified; E66.3 Overweight; Z68.33 Body mass index [BMI] 33.0-33.9, adult; Z71.3 Dietary counseling and surveillance
CPT/HCPCS: 36415; 73590; 73630; 80048; 80053; 81001; 81003; 83735; 84132; 84484; 85025; 85652; 86140; 87086; 93005; 96365; 96375; 99212; 99285; J0613; J1171

== ENCOUNTER → 2025-06-22 19:11 | Outpatient (BNV) | payer OTHER, SELFPAY | PROVIDERS: Visit Provider Specialist | DX: M20.11 Hallux valgus (acquired), right foot (principal); M20.12 Hallux valgus (acquired), left foot; L97.911 Non-pressure chronic ulcer of unspecified part of right lower leg limited to breakdown of skin; L97.112 Non-pressure chronic ulcer of right thigh with fat layer exposed | CPT/HCPCS: 73590; 73630 ==

== ENCOUNTER → 2025-06-22 22:23 | Outpatient (BNV) | payer OTHER, SELFPAY | PROVIDERS: Emergency Provider Emergency Medicine; PCP Internal Medicine; Visit Provider Internal Medicine Cardiovascular Disease | DX: I49.3 Ventricular premature depolarization (principal) | CPT/HCPCS: 93010 ==

== ENCOUNTER 2025-06-24 09:30 | Outpatient (AMB) | payer OTHER, SELFPAY ==
--- NOTE | 2025-06-24 09:35 | A.OFFVIS_ITS ---
Vital Signs 3 06/24/25 09:36 Height 5 ft 1 in Weight 175 lb BMI 33.1 Intake Visit Reasons: left leg ulcer Intake Note: Saira is a 79 year old female who presents today for a follow up of left leg ulcer. Patient states she is in constant pain and ulcers have appeared on her right leg as well. Allergies Penicillins Allergy (Intermediate, Verified 06/28/25 11:44) Hives oxaprozin (From Daypro) Allergy (Unknown, Verified 06/28/25 11:44) RASH ibuprofen Adverse Reaction (Severe, Verified 06/28/25 11:44) N/V hydroxychloroquine Adverse Reaction (Intermediate, Verified 06/28/25 11:44) Abdominal Pain budesonide (Symbicort) Adverse Reaction (Unknown, Verified 06/28/25 11:44) nausea and vomiting HPI Comments Details: The patient is a 79 year old female with a past medical history as seen below presenting with worsening bilateral leg pain, blistering, and difficulty walking. Her condition has significantly worsened, with blisters now appearing all over the legs, whereas they were previously confined to the heels. These blisters reportedly recur, but this episode is more severe, and some ulcers on her heels are persistent bilaterally. Due to severe trouble walking, the patient visited the emergency room yesterday and required an ambulance for transport. A prior consultation with a vascular specialist concluded her vascularity was not severe. The ED suggested a possible bone issue causing friction. Recent laboratory results from the ER visit showed high potassium, a slightly elevated white blood cell count for her baseline, and elevated inflammatory markers. The patient reports shakiness and twitching, and she has discontinued pregabalin due to side effects including twitching and confusion, although it previously provided some pain relief. Her pain is poorly controlled with tramadol and Tylenol. She denies any new pedal injuries. She denies any other pedal concerns. Patient was accompanied by family members. [facility] Medical History Peripheral vascular disease with pain at rest Leg ulcer, left Peripheral vascular disease Overweight (BMI 25.0-29.9) Bilateral primary osteoarthritis of knee Constipation Osteoporosis Allergic rhinitis Insomnia Osteoarthritis Obesity (BMI 30-39.9) Depression Anxiety Vitamin D deficiency GERD without esophagitis Asthma Paroxysmal atrial fibrillation Pure hypercholesterolemia Benign essential hypertension PAF (paroxysmal atrial fibrillation) Surgical History History of colonoscopy Family History Father CVD (cardiovascular disease) Stroke Mother Medical history unknown Brother Bone cancer Sister Cancer of mouth Social History Housing: Apartment Alcohol intake: never Patient Tobacco Use Status: Never used Tobacco Tobacco use type: Cigarette e-Cigarette/Vaping Use: Never Used Second Hand Smoke Exposure: Yes service: No Current occupational status: disabled Cognitive needs: No Hearing needs: No Vision needs: Yes (glasses) Review of Systems Const Details: - General: Reports shakiness and twitching. - Integumentary: Reports recurrent, worsening blisters on both legs, spreading beyond the heels. Reports persistent ulcers on her heels. Reports bruising on the legs. - Musculoskeletal: Reports severe leg pain and difficulty walking. Reports leg twitching bilaterally. - Neurological: Reports experiencing confusion when taking pregabalin. - Vascular: Reports pain consistent and vascular insufficiency. All systems reviewed & are unremarkable except as noted in HPI and below Physical Exam Exam Exam: Physical Exam - Lower Extremities: Examination reveals a significantly worsened condition compared to previous visits. - Skin: Multiple blisters are present bilaterally, diffusely spread across the legs rather than being localized to the heels. - Dark discoloration, which does not go away, is noted. - Bruising is present on the legs. - Visible blue vessels are present, suggestive of venous leakage. - Wounds: Open ulcers are present on the legs, with no visible purulence. - Neuromuscular: Twitching of the legs is observed. Vital Signs: BMI result Body Mass Index 33.1 Extrem Other: Bilateral lower extremity focused physical exam: Derm: Left - Various pressure ulcers noted to the posterior aspect of the heel. Blisters noted diffusely to the lower extremity with various stages of healing. No probing to bone. No undermining or tunneling noted. No maceration periwound area noted. Serous drainage noted. No active bleeding or purulence noted. Diffuse scarring noted to the lower extremity from previous ulcers. Mottling of skin noted with hyperpigmentation. Right- Various pressure ulcers noted to the posterior aspect of the heel. Blisters noted diffusely to the lower extremity with various stages of healing. No probing to bone. No undermining or tunneling noted. No maceration periwound area noted. Serous drainage noted. No active bleeding or purulence noted. Diffuse scarring noted to the lower extremity from previous ulcers. Mottling of skin noted with hyperpigmentation. Vascular: DP pulses palpable and PT pulses nonpalpable. Varicosities noted. Capillary refill time less than 3 seconds. Temperature gradient warm to warm. Pedal hair absent. Mild nonpitting edema noted. Neuro: Protective sensation is grossly intact. MSK: Significant pain on palpation to the lower extremities. No crepitus or fluctuance noted. Range of motion of the forefoot, hindfoot and ankle within normal limits but painful. Twitching of lower extremities noted. Antalgic gait noted unassisted. Office Procedures AMB Debridement/Avulsion Podia Details: Mechanically debrided the bilateral lower extremity blisters of various stages. [id number] of active wound <20cm Procedure code (CPT) selection complete AMB Podiatry Dressing Details of Procedure: Applied unna boots to B/L lower extremities. Additional procedure code (CPT) needed (10638 - 50) Results Reviewed Results Reviewed: Laboratory Tests 06/22/25 06/23/25 06/23/25 20:16 01:26 02:50 WBC 10.1 ESR 35 H Potassium 5.8 H D 6.0 H* 5.6 H Random Glucose 142 H 96 AST 36 H ALT 20 Podiatry read of bilateral tib-fib x-rays (06/22/2025): No acute fractures or dislocations noted. Joint spacing within normal limits. Bilateral tib-fib x-rays (06/22/2025): Findings No fractures or dislocations. No joint effusion. No significant arthritic change. No bone destruction. IMPRESSION: 1. No acute findings in bilateral tibia-fibula Podiatry read of Bilateral foot x-rays (06/22/2025): Right - HAV noted with 1st IM angle of approximately 16 degrees. Joint space narrowing of 1st MPJ. Posterior and plantar calcaneal bone spur noted. Hammertoe deformities noted. Mild osteophytic changes noted to the midfoot. Left - HAV noted with 1st IM angle of approximately 13.7 degrees. Joint space narrowing of 1st MPJ noted. Mild osteophytic changes noted to the midfoot. Hammertoe deformities noted. Calcified vessels noted. Posterior and plantar calcaneal bone spurs noted. Bilateral foot x-rays (06/22/2025): Findings: No acute fracture. No dislocation. Hallux valgus ajaec-bdegnpr-azpt-left. Bilateral calcaneal enthesophytes. No erosions or bone destruction. No ankle joint effusion. Atherosclerotic vascular disease. IMPRESSION: 1. No radiographic evidence of acute osteomyelitis in bilateral feet. If clinically indicated MRI could be obtained. 2. Snqla-czvatys-bfbq-left hallux valgus. Left leg wound culture (05/20/25): No growth or organisms noted. B/L LE Arterial Duplex (06/04/25): The right SUHAS is 1.32 and the left SUHAS is 1.33. These may be artifactually elevated due to increased blood pressure and decreased vessel compressibility. Abnormal PVRs bilaterally, right greater than left, suggestive of mild atherosclerotic disease. Peak systolic velocities and waveforms are normal throughout both lower extremities. B/L LE Venous Duplex (05/28/25): Right: No evidence of DVT or deep venous reflux. No greater or lesser saphenous vein reflux. Multiple perforators seen. Left: No evidence of DVT or deep venous reflux. Reflux in the left greater saphenous vein in the mid calf measuring 1.1 seconds. Assessment & Plan Assessment & Plan (1) Bilateral lower extremity pain: Code(s): M79.604 - Pain in right leg; M79.605 - Pain in left leg Category: Medical (2) Chronic pain of both feet: Code(s): M79.671 - Pain in right foot; M79.672 - Pain in left foot; G89.29 - Other chronic pain Category: Medical (3) Peripheral vascular disease with pain at rest: Code(s): I73.9 - Peripheral vascular disease, unspecified Category: Medical (4) Ulcer of left lower leg: Code(s): L97.929 - Non-pressure chronic ulcer of unspecified part of left lower leg with unspecified severity Category: Medical Qualifiers: Non-pressure ulcer stage: limited to breakdown of skin Qualified Code(s): L97.921 - Non-pressure chronic ulcer of unspecified part of left lower leg limited to breakdown of skin (5) Vasculitic leg ulcer: Code(s): L97.909 - Non-pressure chronic ulcer of unspecified part of unspecified lower leg with unspecified severity Category: Medical (6) Varicose veins of right lower extremity with inflammation: Code(s): I83.11 - Varicose veins of right lower extremity with inflammation Category: Medical (7) Leg ulcer, left: Code(s): L97.929 - Non-pressure chronic ulcer of unspecified part of left lower leg with unspecified severity Category: Medical Qualifiers: Non-pressure ulcer stage: with fat layer exposed Qualified Code(s): L 97.922 - Non-pressure chronic ulcer of unspecified part of left lower leg with fat layer exposed (8) Peripheral vascular disease: Code(s): I73.9 - Peripheral vascular disease, unspecified Category: Medical (9) Swelling of both lower extremities: Code(s): M79.89 - Other specified soft tissue disorders Category: Medical (10) Blister (nonthermal), right lower leg, initial encounter: Code(s): S80.821A - Blister (nonthermal), right lower leg, initial encounter Category: Medical (11) Blister (nonthermal), left lower leg, initial encounter: Code(s): S80.822A - Blister (nonthermal), left lower leg, initial encounter Category: Medical Plan Patient was informed and verbally consented to the use of an ambient scribe for clinic note documentation during this visit. I discussed with the patient and her caregiver that my assessment is that her condition is vascular in nature, likely stemming from venous stasis, where varicose veins leak and cause skin breakdown and blistering. I explained that the diffuse, recurrent nature of the wounds over her entire legs, rather than in a localized spot, makes a tendon or bone issue unlikely. Patient's family member states they would like to get a 2nd opinion for vascularity. We discussed pain management at length. I acknowledged her pain is severe and not adequately controlled. I addressed her fear of becoming addicted to pain medication like Percocet, reassuring her that it is necessary for her current level of pain. I advised a regimen of alternating Percocet with high-dose ibuprofen to manage pain effectively while avoiding excessive Tylenol intake and sent a prescription for ibuprofen. I applied Unna boots to bilateral lower extremities. I also provided anticipatory guidance that the dark discoloration on her legs may not resolve. - Mechanically debrided and Applied Unna boots to bilateral lower extremities. - The patient is to keep the Unna boots intact clean and dry until next appointment. - A referral was printed for the patient due to patient's inquiry of the 2nd opinion. - Pending pain management appointment on the for further pain control strategies. - Prescribed ibuprofen 800 mg to be taken PRN for pain. - Advised to alternate Percocet with ibuprofen for pain, avoiding additional Tylenol to prevent toxicity. - Instructed to use a pillow to elevate her heels when at home or multi Podus boot. RTC in 3 weeks. Orders: Orders 2 AMB Podiatry Dressing 06/24/25 I73.9 - Peripheral vascular disease, unspecified, I83.11 - Varicose veins of right lower extremity with inflammation, M79.89 - Other specified soft tissue disorders, S80.821A - Blister (nonthermal), right lower leg, initial encounter, S80.822A - Blister (nonthermal), left lower leg, initial encounter AMB Debridement/Avulsion Podiatry 06/24/25 G89.29 - Other chronic pain, I73.9 - Peripheral vascular disease, unspecified, I83.11 - Varicose veins of right lower extremity with inflammation, M79.604 - Pain in right leg, M79.605 - Pain in left leg, M79.671 - Pain in right foot, M79.672 - Pain in left foot, M79.89 - Other specified soft tissue disorders, S80.821A - Blister (nonthermal), right lower leg, initial encounter, S80.822A - Blister (nonthermal), left lower leg, initial encounter Medications: New 2 ibuprofen 800 mg PO Q6H PRN 30 tabs 0RF pain G89.29 - Other chronic pain, I73.9 - Peripheral vascular disease, unspecified, M79.604 - Pain in right leg, M79.605 - Pain in left leg, M79.671 - Pain in right foot, M79.672 - Pain in left foot Coding Level of Care Code Est Pt Level 4 (22340) Diagnoses Bilateral lower extremity pain M79.604; M79.605 Chronic pain of both feet M79.671; M79.672; G89.29 Peripheral vascular disease with pain at rest I73.9 Skin ulcer of left lower leg, limited to breakdown of skin L97.921 Non-pressure ulcer stage: limited to breakdown of skin Vasculitic leg ulcer L97.909 Varicose veins of right lower extremity with inflammation I83.11 Ulcer of left lower extremity with fat layer exposed L97.922 Non-pressure ulcer stage: with fat layer exposed Peripheral vascular disease I73.9 Swelling of both lower extremities M79.89 Blister (nonthermal), right lower leg, initial encounter S80.821A Blister (nonthermal), left lower leg, initial encounter S80.822A CPT Codes Skin Debridement - CPT: 47968-Aueqxsahmuf of active wound <20cm ([id number]) Podiatry Dressing - All charges added?: Additional procedure code (CPT) needed ([id number]) Time Spent (min) 40 Comment 10 mins on procedure
[2025-06-24 09:36] VITALS: BMI 33.1
== END 2025-06-24 10:21 | disposition home or self-care (01) ==
LOC: HO.HPODS 09:30
PROVIDERS: PCP Internal Medicine; Visit Provider Student in an Organized Health Care Education/Training Program
DX: M79.604 Pain in right leg (principal); M79.605 Pain in left leg; M79.671 Pain in right foot; M79.672 Pain in left foot; G89.29 Other chronic pain; I73.9 Peripheral vascular disease, unspecified; L97.921 Non-pressure chronic ulcer of unspecified part of left lower leg limited to breakdown of skin; L97.909 Non-pressure chronic ulcer of unspecified part of unspecified lower leg with unspecified severity; I83.11 Varicose veins of right lower extremity with inflammation; L97.922 Non-pressure chronic ulcer of unspecified part of left lower leg with fat layer exposed; M79.89 Other specified soft tissue disorders; S80.821A Blister (nonthermal), right lower leg, initial encounter; S80.822A Blister (nonthermal), left lower leg, initial encounter
CPT/HCPCS: 97597; 99214

== ENCOUNTER → 2025-06-24 09:30 | Outpatient (BNVA) | payer OTHER, SELFPAY | PROVIDERS: PCP Internal Medicine; Visit Provider Student in an Organized Health Care Education/Training Program | DX: L97.421 Non-pressure chronic ulcer of left heel and midfoot limited to breakdown of skin (principal); L97.412 Non-pressure chronic ulcer of right heel and midfoot with fat layer exposed; R23.8 Other skin changes; M79.605 Pain in left leg; M79.604 Pain in right leg; R26.2 Difficulty in walking, not elsewhere classified; I73.9 Peripheral vascular disease, unspecified; M79.671 Pain in right foot; M79.672 Pain in left foot; G89.29 Other chronic pain; I83.11 Varicose veins of right lower extremity with inflammation; M79.89 Other specified soft tissue disorders | CPT/HCPCS: 97597; 99212 ==

== ENCOUNTER 2025-06-28 11:09 | Outpatient (AMB) | payer OTHER, SELFPAY ==
[2025-06-28 11:40] VITALS: BP 188/94; PULSE 77; RESP 16; O2SAT 95; BMI 33.1
--- NOTE | 2025-06-28 11:40 | MHC.OFFVIS ---
Vital Signs 06/28/25 11:40 Height 5 ft 1 in Weight 175 lb BMI 33.1 BP 188/94 H Blood Pressure Location Lt brachial Position Sitting Respiration 16 Pulse 77 Pulse Source Pulse Oximeter Pulse Oximetry (%) 95 Oxygen Delivery Method Room Air Intake Visit Reasons: Chronic ulcers, PVD Biometrics Experimentalist Required: Yes Biometrics Experimentalist Services: Biometrics Experimentalist Offered & Declined Biometrics Experimentalist Name: Prefers daughter to translate Accompanied by: Child Allergies Penicillins Allergy (Intermediate, Verified 06/28/25 11:44) Hives oxaprozin (From Daypro) Allergy (Unknown, Verified 06/28/25 11:44) RASH ibuprofen Adverse Reaction (Severe, Verified 06/28/25 11:44) N/V hydroxychloroquine Adverse Reaction (Intermediate, Verified 06/28/25 11:44) Abdominal Pain budesonide (Symbicort) Adverse Reaction (Unknown, Verified 06/28/25 11:44) nausea and vomiting Medication List - Last Reconciled 06/28/25 by Pao Watkins LPN acetaminophen ER 650 mg PO Q8H PRN 30 days Advair HFA 115-21 mcg/actuation (fluticasone propion-salmeterol) 2 puffs inhalation BID NS albuterol sulfate 2.5 mg (3 mL) continuous nebulization QID PRN amitriptyline 20 mg (2 x 10 mg) PO BEDTIME 90 days atorvastatin 80 mg PO BEDTIME 90 days candesartan 32 mg PO DAILY cholecalciferol (vitamin D3) 25 mcg PO DAILY 90 days [disposable bed pads As directed 4 per day ] [gloves As directed] inhalational spacing device (Aerochamber MV spacer) As directed lidocaine 5% 1 appl topical TID PRN lubiprostone (Amitiza) 24 mcg PO BID mirtazapine 15 mg PO BEDTIME 90 days miscellaneous medical supply Power Lift Chair - As directed - to use indefinatly [Multipodus boots Please provide 1 pair] [Nebulizer machine As directed] [Nebulizer machine As directed] oxycodone 15 mg PO BEDTIME PRN 14 days tramadol 50 mg PO BID PRN 30 days [Transport wheelchair As directed] walker (Ultra-Light Rollator misc) As directed [Walker with seat As directed] zolpidem 10 mg PO BEDTIME PRN 30 days HPI Comments Details: History of Present Illness The patient is a 79-year-old female presenting for management of chronic pain from ulcers on her legs. The leg ulcers first appeared in June 2020 on both legs, causing 10/10 pain that affects the entire leg, particularly the heel. The pain is described as a burning sensation, trinity to having ants on her legs. Her current pain regimen, prescribed by her primary care physician, includes oxycodone once daily at night and tramadol 50 mg as needed. Neither medication provides significant relief, although oxycodone is slightly more effective than tramadol, which is reported as completely ineffective. A trial of Motrin resulted in vomiting, and a past trial of pregabalin, which was effective for the pain, was discontinued due to severe twitching. She has undergone an extensive workup, including consultations with podiatry, vascular surgery, dermatology, and rheumatology. There have been conflicting opinions, with podiatry suspecting a vascular issue and vascular surgery suggesting otherwise. She is awaiting another vascular consultation. Past medical history is notable for osteoporosis, for which she previously took a weekly pill but is not currently. She also reports experiencing back pain. The patient does not smoke, drink alcohol, or use illicit drugs. Due to the severity of her pain and difficulty with ambulation, which now requires a wheelchair, she has moved in with her daughter. Pain Description - Onset: Started in June 2020 with the appearance of leg ulcers. - Location: Bilateral lower legs, with a focus on the heels. - Severity: Rated as 10/10. - Quality: Described as a burning sensation, like ants, and squeezing. - Timing: Pain is constant throughout the day and is worse at night. - Relieving Factors: Oxycodone provides minimal relief. - Exacerbating Factors: Pressure on the legs is poorly tolerated. - Associated Symptoms: The pain is associated with recurrent leg ulcers. - Impact on Function: The pain has led to difficulty walking, requiring the use of a wheelchair. Pain Management - Affect: The patient is distressed by the severe pain and has considered amputation. - Analgesia: Current medications are oxycodone once daily and tramadol as needed. - Current pain level is 10/10. - Tramadol is ineffective, and oxycodone provides only minimal relief. - Adverse Effects: Oxycodone causes constipation. - A prior trial of Motrin caused vomiting, and pregabalin caused severe twitching. - Activities of Daily Living: The pain is constant and has severely impacted her mobility, requiring use of a wheelchair. - She is unable to live alone and is staying with her daughter. - Aberrant Drug-Related Behaviors: No aberrant behaviors were noted. - She previously had a fear of oxycodone due to a family tragedy but is now taking it due to the severity of her pain. Results - Ultrasound: A recent ultrasound report was reviewed by a vascular surgeon who noted that everything looked fine, with no evidence of the typical causes for her symptoms. - The ultrasound did show some unusual findings, specifically the presence of hospital administrator veins on the right side but not the left. - X-rays: Have been performed, but results were not discussed. - MRI: An MRI was previously performed but was not of her back; results were not discussed. [facility] Medical History Peripheral vascular disease with pain at rest Leg ulcer, left Peripheral vascular disease Overweight (BMI 25.0-29.9) Bilateral primary osteoarthritis of knee Constipation Osteoporosis Allergic rhinitis Insomnia Osteoarthritis Obesity (BMI 30-39.9) Depression Anxiety Vitamin D deficiency GERD without esophagitis Asthma Paroxysmal atrial fibrillation Pure hypercholesterolemia Benign essential hypertension PAF (paroxysmal atrial fibrillation) Surgical History History of colonoscopy Family History Father CVD (cardiovascular disease) Stroke Mother Medical history unknown Brother Bone cancer Sister Cancer of mouth Social History Housing: Apartment Alcohol intake: never Patient Tobacco Use Status: Never used Tobacco Tobacco use type: Cigarette e-Cigarette/Vaping Use: Never Used Second Hand Smoke Exposure: Yes service: No Current occupational status: disabled Cognitive needs: No Hearing needs: No Vision needs: Yes (glasses) Physical Exam Exam Exam: Physical Exam - Multiple ulcers, likely venous, and vericosities visible on inspection. Vital Signs: Last Vital Signs Pulse 77 06/28/25 11:40 Resp 16 06/28/25 11:40 BP 188/94 H 06/28/25 11:40 Pulse Ox 95 06/28/25 11:40 Oxygen Delivery Method Room Air 06/28/25 11:40 BMI result Body Mass Index 33.1 Assessment & Plan Assessment & Plan (1) Chronic pain of both feet: Code(s): M79.671 - Pain in right foot; M79.672 - Pain in left foot; G89.29 - Other chronic pain Category: Medical (2) Bilateral lower extremity pain: Code(s): M79.604 - Pain in right leg; M79.605 - Pain in left leg Category: Medical Plan Patient was informed and verbally consented to the use of an ambient scribe for clinic note documentation during this visit. 1. Chronic Leg Pain - The patient's pain is severe, rated 10/10, and seems neuropathic in nature, characterized by burning and squeezing sensations. - The underlying cause is suspected to be vascular, and definitive pain management interventions are pending further vascular evaluation. - It was recommended to split the daily oxycodone dose, taking half in the morning and half at night, for more consistent pain coverage. - To manage constipation from oxycodone, increasing dietary fiber with foods like dried fruit was advised. - The patient was advised that Tylenol can be taken with oxycodone but not with tramadol. - If vascular interventions are unsuccessful, a spinal cord stimulator may be considered as a future option, though it is an unusual approach for this presentation. - Recommend follow-up in two months to reconsider pain management strategies if the vascular workup does not yield a solution. 2. Chronic Venous Stasis Ulcers - The patient has recurrent bilateral leg ulcers, which are believed to be the primary source of her pain. - The etiology is strongly suspected to be vascular, possibly related to incompetent hospital administrator veins noted on ultrasound. - The primary plan is to await the results of a new vascular surgery consultation. - Addressing the underlying vascular problem is considered the definitive treatment for both the ulcers and the associated pain. Discussion Notes I discussed with the patient and her daughter that her chronic leg pain and ulcers are most likely due to an underlying vascular problem, despite previous inconclusive workups. I explained that her ultrasound showed some unusual findings, such as hospital administrator veins, which a vascular specialist would need to address. I emphasized that pursuing the scheduled consultation with the new vascular surgeon is the most critical next step. I informed them that definitive pain management interventions are limited at this time and are contingent on the vascular evaluation. For immediate symptom management, I suggested splitting her daily oxycodone dose and advised on managing constipation with increased fiber intake. I recommended she return to the clinic in a couple of months if the vascular issue is not resolved, at which point we could explore other, more experimental pain therapies. Patient Instructions - It is very important that you see the new vascular specialist to determine the cause of your leg ulcers and pain. - For your pain, you can try splitting your daily oxycodone pill in half, taking one part in the morning and the other at night. - To help with constipation from the pain medicine, eat more fiber-rich foods like dried fruit. - You may take Tylenol together with your oxycodone, but do not take it with tramadol. - If the vascular surgeons do not find a solution in the next couple of months, please schedule a follow-up appointment with our clinic to discuss other options. Coding Level of Care Code New Pt Level 4 (44551) Diagnoses Chronic pain of both feet M79.671; M79.672; G89.29 Bilateral lower extremity pain M79.604; M79.605
== END 2025-06-28 12:22 | disposition home or self-care (01) ==
LOC: HO.PMC 11:09
PROVIDERS: PCP Internal Medicine; Visit Provider Internal Medicine
DX: M79.671 Pain in right foot (principal); M79.672 Pain in left foot; G89.29 Other chronic pain; M79.604 Pain in right leg; M79.605 Pain in left leg
CPT/HCPCS: 99204

== ENCOUNTER → 2025-06-28 11:09 | Outpatient (BNVA) | payer OTHER, SELFPAY | PROVIDERS: PCP Internal Medicine; Visit Provider Internal Medicine | DX: M79.671 Pain in right foot (principal); M79.672 Pain in left foot; G89.29 Other chronic pain; M79.604 Pain in right leg; M79.605 Pain in left leg; I83.018 Varicose veins of right lower extremity with ulcer other part of lower leg; I83.028 Varicose veins of left lower extremity with ulcer other part of lower leg | CPT/HCPCS: 99202 ==